=== PATIENT | female | born 1965 | race Caucasian/White ===

== ENCOUNTER 2022-05-16 08:11 | Emergency (ER) | payer OTHER, SELFPAY ==
--- NOTE | ~2022-05-16 | XR_ITS ---
EXAMINATION: XR chest 2V DATE: 05/16/2022 08:52 INDICATION: Shortness of breath. Cough. TECHNIQUE: Frontal and lateral views of the chest were obtained. COMPARISON: Chest single view 07/18/2021 FINDINGS: The lungs are hyperexpanded. There is no pneumonia, pleural effusion, or pneumothorax. The heart size is normal. There are surgical clips in right abdomen. IMPRESSION: 1. Hyperexpanded lungs. If the patient is a smoker, these findings are consistent with chronic obstru ctive pulmonary disease. Reviewed, dictated and finalized at location A. RTISING PHOTOGRAPHER IMPRESSION: 1. Hyperexpanded lungs. If the patient is a smoker, these findings are consiste nt with chronic obstructive pulmonary disease.
--- NOTE | 2022-05-16 08:18 | ED.URI ---
HPI - URI/Sore Throat General Chief Complaint: Upper Respiratory Infection Stated Complaint: SOB/COUGH Time Seen by Provider: 05/16/22 08:19 Source: patient and RN notes reviewed History of Present Illness HPI Narrative: Patient is a 56-year-old female who presents to urgent care with complaints of shortness of breath and cough. Patient states she has had a cough for approximately 1 week and woke up yesterday with increasing shortness of breath. Patient states that she had to call off work and today the shortness of breath is much worse. Denies wheezing. Denies any history of lung condition. Denies of any chest pain or tightness but states that she does have some rib discomfort due to the coughing. Patient has had intermittent low-grade fevers over the last couple days. Patient is not taking anything at home for her symptoms. No other acute complaints. No acute distress noted. Patient aware of the plan of care. Some parts of this dictation were generated by voice recognition software and may contain typographical and/or grammatical inaccuracies. Related Data Home Medications Medication Instructions Recorded Confirmed metoprolol succinate 50 mg 50 mg PO DAILY 05/16/22 05/16/22 tablet,extended release 24 hr Allergies Allergy/AdvReac Type Severity Reaction Status Date / Time sumatriptan [From Imitrex] Allergy Other Verified 05/16/22 08:39 Review of Systems Review of Systems: CONSTITUTIONAL: Reports of low-grade fevers EYES: Denies visual changes, redness, or discharge. ENT: Denies rhinorrhea, congestion, sore throat, or otalgia. CARDIOVASCULAR: Denies chest pain, palpitations, or edema. RESPIRATORY: Reports of cough with some GASTROINTESTINAL: Denies abdominal pain, nausea, vomiting, or diarrhea. GENITOURINARY: Denies dysuria or hematuria. SKIN: Denies rash or itching. MUSCULOSKELETAL: Denies back pain, joint pain, or myalgia. NEUROLOGIC: Denies headache, numbness, or weakness. All other systems reviewed are negative, except as documented in HPI. PMFSH Comments At the time of my signature, I reviewed and agree with the nursing past medical, surgical, social, and family history. There is no relevant family history pertinent to the patient complaint. Exam Narrative: GENERAL: This is a well-nourished, well-developed patient, in no apparent distress. HEAD: normocephalic, atraumatic. EYES: PERRL. Sclera clear/white. Vision is grossly intact. EARS: External ears normal, auditory canals clear and without drainage, TMs normal without perforation. Hearing grossly intact. NOSE: External nose normal with no obvious nasal discharge, nares without redness, no rhinorrhea. THROAT: Mucous membranes moist, posterior pharynx clear. NECK: Neck supple CARDIOVASCULAR: Regular rate and rhythm RESPIRATORY: Diminished throughout, obvious dyspnea SKIN: warm, intact with no suspicious lesions or rash, good texture and turgor. NEURO: awake, alert, and oriented to person, place and time. There were no obvious focal neurologic abnormalities. EXTREMITIES: No clubbing, cyanosis, or edema. Course Course Level of Care: Express Care Visit Vital Signs Vital signs: Vital Signs Temperature 97.5 F L 05/16/22 08:22 Pulse Rate 86 05/16/22 08:22 Respiratory Rate 18 05/16/22 08:22 Blood Pressure 134/62 05/16/22 08:22 Pulse Oximetry 97 05/16/22 08:22 Oxygen Delivery Room Air 05/16/22 08:22 Temperature 97.5 F L 05/16/22 08:22 Pulse Rate 86 05/16/22 08:22 Respiratory Rate 18 05/16/22 08:22 Blood Pressure 134/62 05/16/22 08:22 Pulse Oximetry 97 05/16/22 08:22 Oxygen Delivery Room Air 05/16/22 08:22 Reviewed Transfer Transfered to: [place] Transportation: Other (private car) Transfer rationale: Dyspnea, abnormal chest x-ray Accepting physician: rebeca you MDM - URI/Sore Throat Differential Diagnosis Differential diagnosis: Likely upper respiratory infection, croup, otitis media, sinusitis,
[2022-05-16 08:22] VITALS: BP 134/62; PULSE 86; RESP 18; TEMP 36.4; O2SAT 97
[2022-05-16] MEDS: ALBUTEROL SULFATE NEB 2.5 MG/3 ML INH INHALATION (09:01)
[2022-05-16] MEDS: IPRATROPIUM BR 0.02% INH SOLN 0.5 MG/2.5 ML VIAL INHALATION (09:02)
[2022-05-16 09:40] VITALS: PULSE 79; RESP 20; O2SAT 95
--- NOTE | 2022-05-16 09:44 | ECG_ITS ---
Measurements Intervals Carey Rate: 64 P: 72 VT: 159 QRS: 56 QRSD: 78 T: 55 QT: 432 QTc: 449 Interpretive Statements SINUS RHYTHM NO PREVIOUS ECG AVAILABLE FOR COMPARISON Electronically Signed On 05-16-2022 14:55:27 ROD PULLER by Timur Badillo M.D.
== END 2022-05-16 09:41 | disposition short-term general hospital (02) ==
PROVIDERS: Emergency Provider Nurse Practitioner Family; PCP Family Medicine
DX: R06.02 Shortness of breath (principal); I34.1 Nonrheumatic mitral (valve) prolapse
CPT/HCPCS: 71046; 93005; 94640; 99213; G0463

== ENCOUNTER 2022-05-16 10:09 | Emergency (ER) | payer OTHER, SELFPAY ==
[2022-05-16 10:50] VITALS: BP 105/90; PULSE 71; RESP 20; TEMP 36.6; O2SAT 99
[2022-05-16 12:28] LABS: Basophils Absolute Auto 0.1 K/mm3 (0.0-0.1); Basophils Percent Auto 0.6 % (0.2-1.2); Eosinophils Absolute Auto 0.2 K/mm3 (0-0.3); Eosinophils Percent Auto 2.3 % (0-4.4); Hematocrit 42.7 % (37.0-47.0); Hemoglobin 14.5 g/dL (12.0-15.0); Immature Granulocyte Absolute 0.04 K/mm3 (0.00-0.031); Immature Granulocyte Percent A 0.4 % (0-0.5); Lymphocytes Absolute Auto 1.02 K/mm3 (0.9-3.2); Lymphocytes Percent Auto 11.3 % (18.3-44.2); Mean Corpuscular Hemoglobin 30.5 pg (26-34); Mean Corpuscular Volume 89.9 fl (80-100); Mean Platelet Volume 9.6 fl (7.4-10.4); Monocytes Absolute Auto 0.6 K/mm3 (0.1-0.6); Monocytes Percent Auto 6.2 % (2.6-8.5); Neutrophils Absolute Auto 7.2 K/mm3 (1.3-6.7); Neutrophils Percent Auto 79.2 % (45.5-73.1); Platelet Count Result 261 k/mm3 (150-375); Red Blood Count 4.75 M/mm3 (4.2-5.4); Red Cell Distribution Width 12.4 % (11.5-14.5); White Blood Count 9.1 K/mm3 (4.5-10.0)
[2022-05-16 12:40] LABS: Alanine Aminotransferase 21 U/L (6-35); Albumin Level 5.2 g/dL (3.5-5.1); Alkaline Phosphatase 68 U/L (38-126); Anion Gap 10 mmol/L (8-16); Aspartate Amino Transferase 23 U/L (14-36); Bilirubin,Total 0.6 mg/dL (0.2-1.3); Blood Urea Nitrogen 9 mg/dL (7-17); Calcium 9.5 mg/dL (8.4-10.2); Carbon Dioxide 28 mmol/L (22-30); Chloride 100 mmol/L (98-107); Estimated CRCL calculation 67 ml/min; Estimated Glomerular Filt Rate > 60; Glucose 90 mg/dL (65-110); Potassium 4.2 mmol/L (3.4-5.0); Sodium 138 mmol/L (137-145)
--- NOTE | 2022-05-16 13:50 | PC.NURSE ---
Patient decided to leave prior to being seen by a provider. She stated I'm not sick and I was just sent here for a CT scan that I haven't had yet . Patient was encouraged to stay for evaluation but declined. Encouraged to return with any worsening symptoms.
== END 2022-05-16 13:50 | disposition left against medical advice (07) ==
PROVIDERS: Emergency Provider Emergency Medicine; PCP Family Medicine
DX: R06.02 Shortness of breath (principal)
CPT/HCPCS: 36415; 80053; 85025; 99199

== ENCOUNTER 2022-11-25 12:37 | Outpatient (CLI) | payer OTHER, SELFPAY ==
--- NOTE | ~2022-11-25 | CT_ITS ---
EXAMINATION:CT diagnostic chest wo con DATE: 11/25/2022 12:58 INDICATION: Pulmonary nodule. TECHNIQUE: Computed tomography (CT) of the chest was performed without intravenous contrast. Automate d exposure control and iterative reconstruction technique were employed. The dose-length product (DLP ) was 58.28 mGy-cm. COMPARISON: Chest 2 views 05/16/2022 FINDINGS: There is mild emphysema. There is mild bronchiectasis in right lower lobe. There is a 5 mm nodule in right lower lobe. There is a 6 mm nodules in right lower lobe. Calcified left lung nodules are consistent with old granulomatous disease. No pleural effusion. The heart size is normal. No sabiha cardial effusion. Pneumobilia is noted. There are changes of cholecystectomy. There is mild thoracic spondylosis and severe cervical spondylosis.. IMPRESSION: 1. Pulmonary nodules measuring up to 6 mm, probably benign. Noncontrast low-dose chest CT is recommen ded in 6-12 months. 2. Mild emphysema. Reviewed, dictated and finalized at location E. IMPRESSION: 1. Pulmonary nodules measuring up to 6 mm, probably benign. Noncontrast low-dos e chest CT is recommended in 6-12 months. 2. Mild emphysema.
== END 2022-11-25 12:38 | disposition home or self-care (01) ==
PROVIDERS: PCP Family Medicine; Visit Provider Internal Medicine Pulmonary Disease
DX: R91.1 Solitary pulmonary nodule (principal); J43.9 Emphysema, unspecified; R91.8 Other nonspecific abnormal finding of lung field
CPT/HCPCS: 71250

== ENCOUNTER 2023-04-02 08:07 | Outpatient (CLI) | payer OTHER, SELFPAY ==
[2023-04-02 08:44] LABS: Basophils Absolute Auto 0.1 K/mm3 (0.0-0.1); Basophils Percent Auto 1.2 % (0.2-1.2); Eosinophils Absolute Auto 0.2 K/mm3 (0-0.3); Eosinophils Percent Auto 2.7 % (0-4.4); Hematocrit 40.5 % (37.0-47.0); Hemoglobin 13.1 g/dL (12.0-15.0); Immature Granulocyte Absolute 0.01 K/mm3 (0.00-0.031); Immature Granulocyte Percent A 0.2 % (0-0.5); Lymphocytes Absolute Auto 1.36 K/mm3 (0.9-3.2); Lymphocytes Percent Auto 24.2 % (18.3-44.2); Mean Corpuscular HGB Conc 32.3 g/dl (32-36); Mean Corpuscular Hemoglobin 29.6 pg (26-34); Mean Corpuscular Volume 91.6 fl (80-100); Mean Platelet Volume 9.9 fl (7.4-10.4); Monocytes Absolute Auto 0.5 K/mm3 (0.1-0.6); Monocytes Percent Auto 8.2 % (2.6-8.5); Neutrophils Absolute Auto 3.6 K/mm3 (1.3-6.7); Neutrophils Percent Auto 63.5 % (45.5-73.1); Platelet Count Result 253 k/mm3 (150-375); Red Blood Count 4.42 M/mm3 (4.2-5.4); Red Cell Distribution Width 12.3 % (11.5-14.5); White Blood Count 5.6 K/mm3 (4.5-10.0)
[2023-04-02 08:56] LABS: Alanine Aminotransferase 15 U/L (6-35); Albumin Level 4.1 g/dL (3.5-5.1); Alkaline Phosphatase 51 U/L (38-126); Anion Gap 8 mmol/L (8-16); Aspartate Amino Transferase 23 U/L (14-36); Bilirubin,Total 0.4 mg/dL (0.2-1.3); Blood Urea Nitrogen 12 mg/dL (7-17); Calcium 9.5 mg/dL (8.4-10.2); Carbon Dioxide 27 mmol/L (22-30); Chloride 101 mmol/L (98-107); Cholesterol 257 mg/dL (0-200); Estimated Glomerular Filt Rate > 60; Glucose 94 mg/dL (65-110); HDL Direct 67 mg/dL; Potassium 4.3 mmol/L (3.4-5.0); Sodium 136 mmol/L (137-145); Triglycerides 111 mg/dL (<150)
[2023-04-02 09:07] LABS: LDL Cholesterol Direct 132 mg/dL
== END 2023-04-02 08:08 | disposition home or self-care (01) ==
LOC: ANHLAB 08:08
PROVIDERS: PCP Family Medicine; Visit Provider Family Medicine
DX: Z00.01 Encounter for general adult medical examination with abnormal findings (principal); R79.89 Other specified abnormal findings of blood chemistry
CPT/HCPCS: 36415; 80053; 80061; 82607; 85025

== ENCOUNTER 2023-05-28 11:04 | Outpatient (CLI) | payer OTHER, SELFPAY ==
--- NOTE | ~2023-05-28 | CT_ITS ---
EXAMINATION: CT diagnostic chest wo con DATE: 05/28/2023 11:33 INDICATION: LUNG NODULE >8MM TECHNIQUE: Computed tomography (CT) of the chest was performed without intravenous contrast. Addition al 3D reconstructions utilizing coronal maximum intensity projection (MIP) were performed. Automated exposure control and iterative reconstruction technique were employed. The dose-length product was 13 7.07 mGy-cm. COMPARISON: 11/25/2022 FINDINGS: Mild emphysema. Unchanged 6 mm nodule in the anterobasilar right lower lobe with interval resolution of near by 5 mm nodule. Tubular opacity likely representing a mucus impacted bronchus more caudally i n the anterobasilar right lower lobe which extends to a new spiculated pleural-based opacity measurin g 2.7 x 1.2 x 0.7 cm most likely representing a small region of atelectasis. Mild discoid atelectasis in the left lower lobe and lingula. There are calcified nodules in the superior segment of the left lower lobe consistent with old granulomatous disease. Heart size is normal. No pericardial or pleural effusion. Thoracic aorta is normal in caliber. No pathologically enlarged thoracic lymphadenopathy. Pneumobilia in the common bile duct and liver likely related to prior cholecystectomy and sphincterot facundo with cholecystectomy clips the gallbladder fossa. Mild thoracic and severe lower cervical and upp er lumbar spondylosis. IMPRESSION: 1. New 2.7 x 1.2 x 0.7 cm spiculated pleural-based opacity anterobasilar right lower lobe which given the configuration and relatively rapid appearance in 4 months would be most consistent with a small region of atelectasis peripheral to a mucus impacted bronchus. Recommend 3 month follow-up low-dose n oncontrast chest CT . 2. Mild emphysema with additional tiny calcified nodule in the 6 mm noncalcified nodule. Reviewed, dictated and finalized at location B. ER OUT IMPRESSION: 1. New 2.7 x 1.2 x 0.7 cm spiculated pleural-based opacity anterobasilar right lower lobe which given the configuration and relatively rapid appearance in 4 m onths would be most consistent with a small region of atelectasis peripheral to a mucus impacted bronchus. Recommend 3 month follow-up low-dose noncontrast est CT . 2. Mild emphysema with additional tiny calcified nodule in the 6 mm noncalcifie d nodule.
== END 2023-05-28 11:05 | disposition home or self-care (01) ==
LOC: ANHIMG 11:09
PROVIDERS: PCP Family Medicine; Visit Provider Internal Medicine Pulmonary Disease
DX: R91.1 Solitary pulmonary nodule (principal); J43.9 Emphysema, unspecified; R91.8 Other nonspecific abnormal finding of lung field
CPT/HCPCS: 71250

== ENCOUNTER 2023-06-17 08:19 | Outpatient (CLI) | payer OTHER, SELFPAY ==
--- NOTE | 2023-06-17 16:41 | WPDPFTINT ---
PFT Procedure Performed PFT Procedure Performed Plethysmography (Lung Vol) Diffusing Cap (DLCO) Flow Vol Loop Spirometry w/o Bronchodil PFT Interpretation This is a pulmonary function test with spirometry, plethysmography and diffusing capacity. The test was performed and results interpreted in accordance with the 2019 and 2005 ATS/ERS Task Force guidelines respectively using the Global Lung Function Initiative-2012 reference equations. Patient demonstrated good effort and cooperation. Reproducibility criteria were met. The quality of the spirometry maneuver was Grade A. Findings: Spirometry: There is decreased maximal expiratory airflow at all lung volumes with concave expiratory flow tracing. The contour the inspiratory flow tracing is normal. The FVC is 2.22 L, 72% predicted. The FEV1 is 1.12 L, 46% predicted. The FEV1: FVC ratio is 51%. Plethysmography: The total lung capacity is 5.68 L, 116% predicted. The functional residual capacity is 4.25 L, 154% predicted. The residual volume is 3.10 L, 162% predicted. The residual volume: Total lung capacity ratio is 55%. Plethysmography: Diffusing capacity: The diffusing capacity unadjusted for hemoglobin and carboxyhemoglobin is 12.5, 58% predicted. Diffusing capacity adjusted for alveolar volume is 3.50, 78% predicted. Impression: There is a severe obstructive abnormality. The increase in residual volume to total lung volume ratio is consistent with hyperinflation from an obstructive abnormality. The diffusing capacity unadjusted for hemoglobin and carboxyhemoglobin is moderately decreased and normalizes when adjusted for alveolar volume. There are no prior studies for comparison
== END 2023-06-17 08:20 | disposition home or self-care (01) ==
LOC: ANHPFT 08:20
PROVIDERS: PCP Family Medicine; Visit Provider Internal Medicine Pulmonary Disease
DX: J43.2 Centrilobular emphysema (principal)
CPT/HCPCS: 94375; 94726; 94729

== ENCOUNTER 2023-06-26 07:42 | Outpatient (CLI) | payer OTHER, SELFPAY ==
--- NOTE | ~2023-06-26 | PE_ITS ---
EXAMINATION: PET skull to mid thigh DATE: 06/26/2023 11:08 INDICATION: Lung nodule. TECHNIQUE: Blood glucose level was 103 mg/dL. 8.154 mCi of 18-fluorodeoxyglucose (18-FDG) was adminis tered i.v. Low dose computed tomography (CT) images were acquired from the base of the brain to the p roximal thighs for attenuation correction and anatomic localization. Automated exposure control was e mployed. Dose-length product (DLP) was 481 mGy-cm. Positron emission tomography (PET) images were acq uired in the same distribution. COMPARISON: Chest CT 05/20/2023, 11/25/2022 FINDINGS: Head/neck: There are no pathologically enlarged lymph nodes. Chest: There is mild emphysema. There is a peripheral 1.8 cm nodule in right lung lower lobe with max imum SUV of 11.1. There is a bronchocele in right lower lobe. There is a 4 mm nodule without increase d activity in right lower lobe. No pleural effusion. The heart size is normal. No pericardial effusio n. Abdomen/pelvis/proximal thighs: The liver demonstrates pneumobilia, likely secondary to sphincterotom y. There are changes of cholecystectomy. The pancreas, spleen, adrenal glands, and kidneys are normal . There are no dilated loops of bowel. There are no pathologically enlarged lymph nodes. There is no free intraperitoneal fluid. There is no osseous malignancy. IMPRESSION: 1. 1.8 cm nodule in right lung lower lobe with increased activity, consistent with primary bronchogen ic carcinoma versus pneumonia. CT-guided biopsy is recommended. Reviewed, dictated and finalized at location A. IMPRESSION: 1. 1.8 cm nodule in right lung lower lobe with increased activity, consistent w ith primary bronchogenic carcinoma versus pneumonia. CT-guided biopsy is recomm ended.
[2023-06-26 08:17] LABS: Glucose Point of Care 103 mg/dl (65-105)
== END 2023-06-26 07:43 | disposition home or self-care (01) ==
PROVIDERS: PCP Family Medicine; Visit Provider Internal Medicine Pulmonary Disease
DX: R91.1 Solitary pulmonary nodule (principal)
CPT/HCPCS: 78815; A9552

== ENCOUNTER 2023-09-17 11:09 | Outpatient (CLI) | payer OTHER, SELFPAY ==
--- NOTE | ~2023-09-17 | CT_ITS ---
EXAMINATION:CT diagnostic chest wo con DATE: 09/17/2023 11:24 INDICATION: Right lung nodule. TECHNIQUE: Computed tomography (CT) of the chest was performed without intravenous contrast. Automate d exposure control and iterative reconstruction technique were employed. The dose-length product (DLP ) was 128.87 mGy-cm. COMPARISON: Chest CT 05/28/2023, 11/25/22, PET/CT 06/06/23 FINDINGS: There is mild emphysema. There is mild atelectasis bilaterally. There is a bronchocele in r ight lower lobe. There is a 10 mm nodule in right lower lobe, improved from 18 mm on 06/26/2023. There is a 5 mm nodule in right lower lobe, stable from 11/25/22. There is a 3 mm nodule in right lower lob e. A calcified left lung nodule is consistent with old granulomatous disease. No pleural effusion. Th e heart size is normal. No pericardial effusion. Pneumobilia is noted, likely secondary to sphinctero flex. There are changes of cholecystectomy. There is mild thoracic spondylosis. IMPRESSION: 1. 10 mm right lower lobe pulmonary nodule with improvement from 06/06/2023, probably benign. Noncontra st low-dose chest CT is recommended in 6 months. 2. Mild emphysema. Reviewed, dictated and finalized at location A. IMPRESSION: 1. 10 mm right lower lobe pulmonary nodule with improvement from 06/06/2023, prob ably benign. Noncontrast low-dose chest CT is recommended in 6 months. 2. Mild emphysema.
== END 2023-09-17 11:10 | disposition home or self-care (01) ==
LOC: ANHIMG 11:12
PROVIDERS: PCP Family Medicine; Visit Provider Internal Medicine Pulmonary Disease
DX: R91.1 Solitary pulmonary nodule (principal); J43.9 Emphysema, unspecified
CPT/HCPCS: 71250

== ENCOUNTER 2024-02-17 11:42 | Outpatient (CLI) | payer OTHER, SELFPAY ==
--- NOTE | ~2024-02-17 | CT_ITS ---
EXAMINATION:CT diagnostic chest wo con DATE: 02/17/2024 12:00 INDICATION: Right lung nodule. TECHNIQUE: Computed tomography (CT) of the chest was performed without intravenous contrast. Automate d exposure control and iterative reconstruction technique were employed. The dose-length product (DLP ) was 35.17 mGy-cm. COMPARISON: Chest CT 09/17/2023, 05/28/2023 FINDINGS: There is mild emphysema. There are 5 nodules in right lung lower lobe measuring up to 10 mm . A calcified left lung nodule and calcified mediastinal lymph nodes are consistent with old granulom atous disease. No pleural effusion. The heart size is normal. No pericardial effusion. Pneumobilia is noted. There is mild thoracic spondylosis. IMPRESSION: 1. Right lower lobe pulmonary nodules, some of which are stable and some of which are new, probably i nfection. Noncontrast low-dose chest CT is recommended in 3 months. 2. Mild emphysema. Reviewed, dictated and finalized at location A. WARE MAKER IMPRESSION: 1. Right lower lobe pulmonary nodules, some of which are stable and some of whi ch are new, probably infection. Noncontrast low-dose chest CT is recommended in 3 months. 2. Mild emphysema.
== END 2024-02-17 11:43 | disposition home or self-care (01) ==
LOC: MICIMG 11:42
PROVIDERS: PCP Family Medicine; Visit Provider Internal Medicine Pulmonary Disease
DX: R91.1 Solitary pulmonary nodule (principal); J43.9 Emphysema, unspecified
CPT/HCPCS: 71250

== ENCOUNTER 2024-03-26 08:25 | Outpatient (CLI) | payer OTHER, SELFPAY ==
--- NOTE | ~2024-03-26 | XR_ITS ---
XR hand RT min 3V Ordering provider: Bouchra Vickers, History: . BILATERAL ARTHRITIS OF HANDS . Comparison: None. FINDINGS: BONES: No acute fracture or dislocation. JOINT SPACES: Slight narrowing of the distal interphalangeal joints. SOFT TISSUES: Normal. IMPRESSION: No acute osseous abnormality right hand. Slight narrowing of the distal interphalangeal joints which may indicate early osteoarthritic changes . Follow-up and clinical correlation advised. Reviewed, dictated and finalized at location A. EOTYPER IMPRESSION: No acute osseous abnormality right hand. Slight narrowing of the distal interphalangeal joints which may indicate early osteoarthritic changes. Follow-up and clinical correlation advised.
--- NOTE | ~2024-03-26 | XR_ITS ---
XR hand LT min 3V Ordering provider: Bouchra Vickers, History: . BILATERAL ARTHIRITIS OF HANDS . Comparison: None. FINDINGS: BONES: No acute fracture or dislocation. JOINT SPACES: Slight narrowing of the distal interphalangeal joints. Subarticular cystic area seen in the distal subarticular area of the proximal phalanx of the second finger. SOFT TISSUES: Soft tissue density opposite the distal radius. Clinical correlation advised. IMPRESSION: No acute osseous abnormality left hand. Narrowing of the distal interphalangeal joints which may indicate early osteoarthritic changes. Clini kate correlation and follow-up advised. Reviewed, dictated and finalized at location A. UCTION SKI REPAIRER IMPRESSION: No acute osseous abnormality left hand. Narrowing of the distal interphalangeal joints which may indicate early osteoar thritic changes. Clinical correlation and follow-up advised.
[2024-03-26 09:01] LABS: Rheumatoid Factor < 12.0 IU/ML (<12)
[2024-03-26 09:03] LABS: Alanine Aminotransferase 14 U/L (6-35); Albumin Level 4.5 g/dL (3.5-5.1); Alkaline Phosphatase 52 U/L (38-126); Anion Gap 3 mmol/L (4-12); Aspartate Amino Transferase 21 U/L (14-36); Bilirubin,Total 0.5 mg/dL (0.2-1.3); Blood Urea Nitrogen 9 mg/dL (7-17); CRP < 0.5 mg/dL (<1.0); Calcium 9.4 mg/dL (8.4-10.2); Carbon Dioxide 29 mmol/L (22-30); Chloride 106 mmol/L (98-107); Cholesterol 227 mg/dL (0-200); Estimated Glomerular Filt Rate > 60; Glucose 99 mg/dL (65-110); HDL Direct 67 mg/dL; Hemoglobin 13.1 g/dL (12.0-15.0); Mean Corpuscular HGB Conc 32.8 g/dl (32-36); Mean Corpuscular Hemoglobin 29.5 pg (26-34); Mean Corpuscular Volume 90.1 fl (80-100); Platelet Count Result 212 k/mm3 (150-375); Potassium 3.9 mmol/L (3.4-5.0); Red Blood Count 4.44 M/mm3 (4.2-5.4); Red Cell Distribution Width 12.4 % (11.5-14.5); Sodium 138 mmol/L (137-145); Triglycerides 89 mg/dL (<150); White Blood Count 6.3 K/mm3 (4.5-10.0)
[2024-03-26 09:11] LABS: LDL Cholesterol Direct 118 mg/dL
[2024-03-26 09:54] LABS: Band Neutrophils Percent 0 % (0-6); Basophils Percent Manual 0 % (0-1); Eosinophils Absolute Manual 0.12 K/mm3 (0.02-0.50); Eosinophils Percent Manual 2 % (0-4); Lymphocytes Absolute Manual 1.63 K/mm3 (1.1-4.5); Lymphocytes Percent Manual 26 % (18-44); Monocytes Absolute Manual 0.12 K/mm3 (0.1-0.90); Monocytes Percent Manual 2 % (3-9); Neutrophils Absolute Manual 4.41 K/mm3 (1.7-7.2); Neutrophils Percent Manual 70 % (46-73); Total Cells Counted 100
[2024-03-26 09:55] LABS: Hypochromasia 1+; Platelet Estimate Adequate (Adequate); Schistocytes None Seen
[2024-03-29 13:09] LABS: Cyclic Citrullinated Peptide <16 UNITS
[2024-03-30 12:28] LABS: Anti Nuclear Antibody Pattern Nuclear, Homogeneous; Anti Nuclear Antibody Titer 1:40 titer
--- OUTSIDE RECORDS SUMMARY | 2024-04-02 18:37 | XMS_ITS | Encounter Summary ---
Author Organization [facility] Address [facility] [facility] [place] [address] [place] [address] Care Team Providers Care Inflated Pad Buffer Name Role Phone Unavailable Primary Care Provider Unavailabl e Encounter Details Date Type Department Care Team (Late st Contact Info) Description 10/21/2008 Abstract [facility] [place] [address] Bouchra Vickers MD [address] [facility] [address] [place] [address] Social History Tobacco Use Types Packs/Day Years Used Date Smoking Tobacco: Never Assessed Comments Unknown Sex and Gender Information Value Date Recorded Sex Assigned at Not on file Legal Sex Female 4:09 PM CDT Gender Identity Not on file Sexual Orientation Not on file documented as of this encounter Plan of Treatment Not on file documented as of this encounter Visit Diagnoses Not on filedocumented in this encounter
--- OUTSIDE RECORDS SUMMARY | 2024-04-02 18:37 | XMS_ITS | Continuity of Care Document ---
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 Plan of Treatment Reminders Order Date Submit Date Provider Last Modified By Organization Details Last Modified Time Details Appointments MEDICARE WELLNESS VISIT 2024 10:30A Venus Vickers MD Not available Not available Not available Lab CMP, serum or plasma 2023 [facility] (Lab), [address] [place] [address], [id number], 03/26/2024 12:16:56 C reactive protein, QN, serum or plasma 2023 024 [facility] (Lab), [address] [place] [address], [id number], 03/22/2024 09:55:19 MARTIN (antinucl ear antibodie s) screen, ifa, serum 2023 024 [facility] (Lab), [address] [place] [address], [id number], 03/30/2024 15:39:54 rf (rheumato id factor) + anti-ccp abs, serum 2023 024 [facility] (Lab), [address] [place] [address], [id number], 03/26/2024 13:52:00 lipid panel, serum 2023 024 [facility] (Lab), [address] [place] [address], [id number], 03/26/2024 12:16:56 vitamin B12, serum 2023 024 [facility] (Lab), [address] [place] [address], [id number], 03/26/2024 12:16:56 CBC w/ auto diff 2023 024 [facility] (Lab), [address] [place] [address], [id number], 03/26/2024 12:16:56 Referral None recorded. Procedures None recorded. Surgeries None recorded. Imaging XR, hand 2023 024 [facility] (Imaging), [address] [place] [address], [id number], 03/26/2024 17:21:43 Medication Orders None recorded. Patient TargetsNo targets recorded. Patient InstructionsNo instructions recorded. Reason for Referral None Reported. Results Created Date Observation Date Name Description Value Unit Range Abnormal Flag Note LastModifiedBy Organization Detail LastModifiedTime 03/26/20 24 03/26/2024 XR, hand No observ ation record ed. [address], [address], 03/30/2024 20:28:09 Result Notes None recorded. Problems Name Problem SNOMED Code Status Onset Date Resolution Date Notes Provider Name and Address Organization Details Recorded Time Non-rheu matic mitral valve disease 244723333 Active 2021 Not Available [facility] 4 02:00:33 Degenera tion of lumbar interver tebral disc 95317570 Active 2021 Not Available [facility] 4 02:00:33 Mild neurocog nitive disorder 636973116 Active 2021 Not Available [facility] 4 02:00:33 Cataract of right eye 520810958 Active 2021 Not Available [facility] 4 02:00:33 Family history of diabetes mellitus in first degree relative 215959012 Active 2021 Not Available [facility] 4 02:00:33 Cobalami n deficien cy 683176307 Active 2021 Not Available [facility] 4 02:00:33 Chronic obstruct marin pulmonar y disease 36199528 Active 2022 Not Available [facility] 4 02:00:33 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 752889484 Active 2022 Not Available [facility] 4 02:00:33 Difficul ty coping with grief response s 435749287 Active 2022 Not Available [facility] 4 02:00:33 Cervical spondylo sis without myelopat hy 942730360 Active 2022 Not Available [facility] 4 02:00:33 Multiple nodules of lung 305495621 Active 2023 abnormal -- with a new lesion 2.7 cm x 1,2 cm x 0.7 cm-- recheck in 3 months- most consiste nt with area of atelecta sis Bouchra Vickers MD Attn: Accounting ,[address] [facility], [place], [address] , [place] [facility] 4 08:11:26 Pulmonar y sarcoido sis 77458720 Active 2023 Bouchra Vickers MD Attn: Accounting ,[address] [facility], [place], [address] , [place] [facility] 4 12:20:09 Chronic cough 32432935 Active 2022 Bouchra Vickers MD Attn: Accounting ,[address] [facility], [place], [address] , [place] [facility] 4 12:49:14 Spasm of sphincte r cullen Dardeni 01653994 Completed 201112/01/2011 Location : None;Sev erity: Moderate ;Progres s: Stable;A dded By: Bouchra Vickers;Add to Current Problems : NO Not Available [facility] 7 08:54:[address] [facility] emia [id number] Completed 201205/31/2012 Location : None;Sev erity: Moderate ;Progres s: Stable;A dded By: Bouchra Vickers;Add to Current Problems : NO Not Available [facility] 7 08:54:31 Hand joint pain 634142979 Completed 201406/28/2019 Location : None;Sev erity: Moderate ;Progres s: Stable;A dded By: Bouchra Vickers;Add to Current Problems : YES Removal Reason: recovere d Bouchra Vickers MD Attn: Accounting ,[address] [place], [address] , [facility] 0 10:12:14 Slow transit constipa tion 47154558 Active 2014 Location : None;Sev erity: Moderate ;Progres s: Stable;A dded By: Bouchra Vickers;Add to Current Problems : YES Not Available [facility] 4 02:00:33 Dyssomni a 33831614 Completed 201401/07/2015 Location : None;Sev erity: Moderate ;Progres s: Stable;A dded By: Bouchra Vickers;Add to Current Problems : YES Not Available [facility] 7 08:54:31 Multiple joint pain 14363093 Active 2015 Location : None;Sev erity: Moderate ;Progres s: Stable;A dded By: Bouchra Vickers;Add to Current Problems : YES Not Available [facility] 4 02:00:33 Premenst rual tension syndrome 25345555 Completed 201106/28/2019 Location : None;Sev erity: Moderate ;Progres s: Stable;A dded By: Bouchra Vickers;Add to Current Problems : YES Bouchra Vickers MD Attn: Accounting ,[address] [place], [address] , [facility] 0 10:11:54 Transharish t insomnia 949738260 Completed 201311/18/2013 Location : None;Sev erity: Moderate ;Progres s: Stable;A dded By: Ofe Lynn;Add to Current Problems : NO Not Available [facility] 7 08:54:32 Hemangio ma of skin and subcutan eous tissue 997331775 Active 2013 Location : None;Sev erity: Moderate ;Progres s: Stable;A dded By: Bettie Cobos;Add to Current Problems : NO Not Available [facility] 4 02:00:33 Irritabl e bowel syndrome 56357543 Active 2011 Location : None;Sev erity: Moderate ;Progres s: Stable;A dded By: Kathy Rust; Add to Current Problems : NO Bouchra Vickers MD Attn: Accounting ,[address] [place], [address] , [facility] 4 12:49:47 Migraine without aura 17749365 Active 2011 Location : None;Sev erity: Moderate ;Progres s: Stable;A dded By: Kathy Rust; Add to Current Problems : NO Not Available [facility] 4 02:00:33 Acquired hypothyr oidism 212699438 Active 2015 Location : None;Sev erity: Moderate ;Progres s: Stable;A dded By: Kathy Rust; Add to Current Problems : YES Not Available [facility] 4 02:00:33 Notes:Some problems listed i n Documents: #[id number], #[id number], #[id number] could not be added to this patient's chart. Please review these documents and add these problems to the patient's chart manually as needed. Problem Notes None recorded. Procedures Surgical History Date Name Laterality Status Provider Name and Address Organization Details Recorded Time 07/10/19 24 biopsy of lung completed Bouchra Vickers MD Attn: Accounting, [address] [place], [address] 07/22/2023 08:11:42 12/27/19 23 cataract surgery completed Bouchra Vickers MD Attn: Accounting, [address] [facility], [place], [address], [place] [facility] 03/18/2023 11:18:43 06/23/19 22 Date of Last Mammogram completed Kenia Carter MA [place] - [facility] 03/19/2024 11:39:12 12/30/19 07 Cholecystectomy completed Bouchra Vickers MD Attn: Accounting, [address] [facility], [place], [address], [place] [facility] 03/19/2024 12:35:14 08/30/19 05 Total hysterectomy completed Bouchra Vickers MD Attn: Accounting, [address] [place], [address], [facility] - [facility] 03/19/2024 12:35:56 04/01/18 95 Tubal Ligation completed Bouchra Vickers MD Attn: Accounting, [address] [place], [address], [facility] - [facility] 03/19/2024 12:36:16 03/31/18 90 Dilation and Curettage completed Bouchra Vickers MD Attn: Accounting, [address] [place], [address], [facility] - [facility] 03/19/2024 12:32:10 Gastrointestinal Surgery completed Bouchra Vickers MD Attn: Accounting, [address] [place], [address], [facility] - [facility] 11/28/2020 10:40:19 Imaging Results None recorded. Procedure Notes None recorded. Medical Equipment None Reported. Allergies Allergen ID Allergen Name Allergen Category Reaction Reaction Severity Criticality Documentation Date Start Date Code Code System Note Provider Name and Address Organization Details Recorded Time 979275 sumatript an medicatio n anaphylax is Not available Not available 03/19/2024 91354 RxNorm Bouchra Vickers MD Attn: Accountfemi moy,[address] [place], [address], [place] [facility] 12:47:49 393002 zolmitrip araujo medicatio n anaphylax is Not available Not available 03/19/20242021 84762 5 RxNorm Bouchra Vickers MD Attn: Elias moy,[address] [facility], [place], [address], [facility] 4 12:47:49 770623 Medicinal product acting as adhesive (product) environme nt,medica tion rash Not available Not available 03/19/20242021 63195 2009 SNOMED Bouchra Vickers MD Attn: Elias moy,[address] [facility], [place], [address], [facility] - [facility] 4 12:47:49 70201 Zomig medicatio n Not available Not available Not available 04/03/20162012 45587 4 RxNorm React ion: Myalg ia, swell ing, Throa t disco mfort ;Alee rity: Moder ate; Comme nt: Aller gy Type: Aller gy; Not Available [facility] 7 03:49:13 Medications Name Sig Start Date Stop Date Status Note LastModified by Organization Details LastModified Time fluoxetine 40 mg capsule TAKE ONE CAPSULE BY MOUTH EVERY DAY 05/17 completed Not Available Not Available Not Available Miralax 17 gram/dose oral powder Dissolve 1 capful(s) in 8 ounces of water and drink daily 01/06 completed RxNor m: 68764 5;All ow Subst ituti on: True Not Available Not Available Not Available prednisone 10 mg tablet 01/06 completed Not Available Not Available Not Available ofloxacin 0.3 % eye drops 03/15 completed Not Available Not Available Not Available metoprolol succinate ER 50 mg tablet,exte nded release 24 hr TAKE 1 TABLET BY MOUTH EVERY DAY active Not Available Not Available No t Available prednisone 20 mg tablet TAKE 1 TABLET BY MOUTH DAILY FOR 2 DOSES 03/19 completed Not Available Not Available Not Available prednisone 5 mg tablet TAKE 1 TABLET BY MOUTH EVERY MORNING active Not Available Not Available No t Available estradiol 0.05 mg/[address] ONE PATCH ON THE SKIN TWICE A WEEK DIRECTED 05/28 completed Not Available Not Available Not Available ketorolac 0.5 % eye drops 03/15 completed Not Available Not Available Not Available prednisolon e acetate 1 % eye drops,suspe nsion 03/15 completed Not Available Not Available Not Available Midrin 65 mg-100 mg-325 mg capsule Take 1 capsule(s ) by mouth q4h up to 8 capsules per day. 04/30 completed RxNor m: 31111 7;All ow Subst ituti on: True Not Available Not Available Not Available baclofen 10 mg tablet TAKE ONE TABLET BY MOUTH THREE TIMES A DAY BEFORE MEALS 05/28 completed Not Available Not Available Not Available levothyroxi ne 50 mcg tablet TAKE ONE TABLET BY MOUTH EVERY DAY 06/27 completed Not Available Not Available Not Available pantoprazol e 40 mg tablet,kenny yed release 01/06 completed Not Available Not Available Not Available cyanocobala min (vit B-12) 1,000 mcg/mL injection solution ADMINISTE R 1 ML UNDER THE SKIN EVERY MONTH active Not Available Not Available No t Available misoprostol 200 mcg tablet 3 times daily 11/09 completed Not Available Not Available Not Available metoprolol tartrate 50 mg tablet Take 1 tablet(s) by mouth daily 04/30 completed RxNor m: 21568 6;All ow Subst ituti on: True Not Available Not Available Not Available Imdur 60 mg tablet,exte nded release Take 1 tablet(s) by mouth qa 11/08 completed RxNor m: 64628 8;All ow Subst ituti on: True Not Available Not Available Not Available BD Luer-Lucy Syringe 3 mL 25 gauge x 1 USE DIRECTED active Not Available Not Available No t Available nitroglycer in 0.4 mg sublingual tablet DISSOLVE 1 TABLET UNDER THE TONGUE (MAY REPEAT EVERY 5 MINUTES FOR ABDOMEN SPASMS, MAXIMUM OF THREE DOSES IN 15 MINUTES) active Not Available Not Available No t Available omeprazole 20 mg capsule,del ayed release active Not Available Not Available Not Available chlordiazep oxide-clidi nium 5 mg-2.5 mg capsule Take 1 capsule(s ) by mouth qid-- AC adn at 10/30 completed Not Available Not Available Not Available estradiol 0.5 mg tablet active Not Available Not Available Not Available albuterol sulfate HFA 90 mcg/actuati on aerosol inhaler INHALE 2 PUFFS BY MOUTH EVERY 4 HOURS NEEDED active Not Available Not Available No t Available cefdinir 300 mg capsule 05/28 completed Not Available Not Available Not Available estradiol 0.1 mg/24 hr weekly transdermal patch Apply 1 patch(es) to lower abdomen 2 times weekly 05/02 completed RxNor m: 12865 4;All ow Subst ituti on: True Not Available Not Available Not Available azithromyci n 500 mg tablet TAKE 1 TABLET BY MOUTH FOR ONE DOSE 05/28 completed Not Available Not Available Not Available 16.2 mg-0.1037 mg-0.0194 mg/5 mL oral elixir Take 5 mL as needed by oral route with meals. 05/02 completed Not Available Not Available Not Available Atrovent HFA 17 mcg/actuati on aerosol inhaler INHALE 2 PUFFS BY MOUTH FOUR TIMES DAILY 01/06 completed Not Available Not Available Not Available Symbicort 160 mcg-4.5 mcg/actuati on HFA aerosol inhaler INHALE 2 PUFFS BY MOUTH TWICE DAILY. RINSE MOUTH WITH WATER AFTER USE. DO NOT SWALLOW 01/06 completed Not Available Not Available Not Available estradiol 0.87 gram/actuat ion (0.06%) transdermal gel pump Apply 1 pump every day by topical route. 05/02 completed Not Available Not Available Not Available Amitiza 8 mcg capsule Take 1 cap po daily 10/18 completed RxNor m: 50704 1;All ow Subst ituti on: True Not Available Not Available Not Available fluoxetine 60 mg tablet TAKE 1 TABLET BY MOUTH EVERY DAY 03/19 completed Not Available Not Available Not Available Breztri Aerosphere 160 mcg-9mcg-4. 8mcg/actuat ion HFA aerosol inhaler INHALE 2 PUFFS BY MOUTH TWICE DAILY active Not Available Not Available No t Available Vitals Date Recorded Body weight Body mass index (BMI) Body height Oxygen saturation Oxygen saturation in Arterial blood by Pulse oximetry Heart rate Body temperature Systolic blood pressure Diastolic blood pressure Provider Name and Address Organization Details Last Updated DateTime 4 50694.8 3 g 18.2 kg/m2 158.75 cm 97 % 97 % 74 /min 97.1 [degF] 122 mm[Hg] 73 mm[Hg] Kenia Carter MA [place] [facility] 4 11:35:34 Social History Question Answer Notes LastModified by Organizat ion Details LastModified Time Tobacco Smoking Status Never Smoker Neelima Tijerinaandi kay [place] - [facility] 05/02/2016 11:13:48 Do You Have An Advance Directive? No Information not available 11/28/2020 What Is Your Level Of Alcohol Consumption? Occasional Information not available 11/28/2020 Are You Blind Or Do You Have Difficulty Seeing? No Has Cataract On Right Eye Information not available 11/28/2020 What Is Your Level Of Caffeine Consumption? Moderate Information not available 11/28/2020 In The 14 Days Before Symptom Onset, Have You Had Close Contact With A Laboratory-confi rmed COVID-19 While That Case Was Ill? No Information not available 11/28/2020 In The 14 Days Before Symptom Onset, Have You Had Close Contact With A Person Who Is Under Investigation For COVID-19 While That Person Was Ill? No Information not available 11/28/2020 Have You Been To An Area Known To Be High Risk For COVID-19? No Information not available 11/28/2020 Are You Currently Employed? Yes Information not available 11/28/2020 Are You Deaf Or Do You Have Serious Difficulty Hearing? No Information not available 11/28/2020 What Type Of Diet Are You Following? REGULAR Information not available 11/28/2020 What Was The Date Of Your Most Recent Tobacco Screening? 03/19/2024 [email or web address] Information not available 03/19/2024 What Is Your Relationship Status? Information not available 11/28/2020 Do You Use Your Seat Belt Or Car Seat Routinely? Yes Information not available 11/28/2020 Do You Have Smoke And Carbon Monoxide Detectors In Your Home? Yes Information not available 11/28/2020 Are You Passively Exposed To Smoke? No Information not available 11/28/2020 Do You Feel Stressed (tense, Restless, Nervous, Or Anxious, Or Unable To Sleep At Night)? AB53633-4 Information not available 11/28/2020 Do You Use Any Illicit Or Recreational Drugs? Yes Cannibus Gummies Edibles Information not available 11/09/2021 Do You Or Have You Ever Used Any Other Forms Of Tobacco Or Nicotine? No Information not available 11/09/2021 Sex: Female Functional Status Question Answer Note LastModified by Organizat ion Details LastModified Time Are you able to care for yourself? Yes Information not available 11/28/2020 What is your exercise level? Occasional Information not available 11/28/2020 Mental Status None recorded. Family History Relationship Description Onset Age of this Age Resolved Age Notes LastModified by Organization Details LastModified Time Mother Coronary arterioscler osis charrisma Not available 2016 11:13:56 Mother Diabetes mellitus charrisma Not available 2016 11:14:02 Mother Heart disease charrisma Not available 2016 11:14:09 Mother Hypertensive disorder charrisma Not available 2016 11:14:18 Mother Osteoarthrit is Not available 2023 12:31:23 Medical History Condition Response Coronary Artery Disease N High Blood Pressure N Atrial Fibrillation N Kidney or Bladder Problems N Thyroid Problems Y GI Problems Y Depression N COPD Y Blood Clots N Have you had a mammogram in the last yea r? N Skin Problems N Eating Disorder N Anemia N Heart Attack (OK) N Diabetes N Muscle, Joint, or Bone Problems Y Arthritis Y Seizures/Epilepsy N Have you had a colonoscopy in the last 1 0 years? N Acid Reflux (GERD) Y Cancer N Stroke N Asthma N Allergies N Have you had a PSA blood test in the las t year? N ADHD N Substance Abuse N High Cholesterol N Hepatitis N Liver Disease N Schizophrenia N Headaches Y Osteoporosis N Heart Failure N Gynecological History Statement/Question Response If Post Menopausal, Age at Menopause 39 Date of Last Mammogram 06/22/2021 Obstetrics History GPAL:G 2 P 2 0 0 2 Type Value Full Term 2 Living 2 Total 2 Immunizations Vaccine Type Date Status Note Provider Nam e and Address Organization Details Recorded Time COVID-19 vaccine, vector-nr, rS-Ad26, PF, 0.5 mL 1 completed Not Available [facility] 05/12/2023 02:00:34 Influenza, split virus, trivalent, preservative 9 completed Not Available [facility] 05/12/2023 02:00:34 Influenza, split virus, trivalent, PF 4 completed Bouchra Vickers MD Attn: Accounting[address] [place], [address], [place] [facility] 03/19/2024 12:47:12 Tdap 0 completed ANDI Leggett, [place] - [facility] 09/21/2019 14:44:46 Tdap 9 completed Not Available [facility] 05/12/2023 02:00:34 Pneumococcal conjugate PCV20, polysaccharide [id number] conjugate, adjuvant, PF 4 completed ANDI Bennett, [place] - [facility] 03/19/2024 13:04:40 Influenza, split virus, quadrivalent, preservative 7 completed Not Available [facility] 05/12/2023 02:00:33 Past Encounters Encounter ID Performer Location Encounter Start Date Encounter Closed Date Diagnosis/Indication Diagnosis SNOMED-CT Code Diagnosis ICD10 Code Diagnosis Note [id number] Bouchra Vickers MD [facility] [address] [place] [address] 03/19/2024 11:18:00 03/22/2024 09:55:24 Adult health examination 188129488 Z00.01 discussed DEXA and declined testing at this timeDiscus sed mammogram and she agrees and will schedule Bilateral arthritis of hands 7376316067 04535 M13.841 M13.842 will check XRAYs asn order screening -- no real help with PREDNISONE - likely not RA Hyperlipidemia 31658457 E78.5 last HDL was good and LDL was minimally elevated-- but will recheck next week Cobalamin deficiency 190 288903 E53.8 she reprots she does not feel any different since starting B 12 injecions- - will check CBC and B 12 Long-term drug therapy 828695728 Z79.891 routine labs next week Anxiety 05923070 F41.9 Take medicines exactly as directed. Call your doctor if you think you are having a problem with your medicine. Be kind to your body: Relieve tension with exercise or a massage. Get enough rest. Avoid alcohol, caffeine, nicotine, and illegal drugs. They can increase your anxiety level and cause sleep problems. Engage your mind. Get out and do something you enjoy. Go to a funny movie, or take a walk or hike. Plan your day. Having too much or too little to do can make you anxious. Keep a record of your symptoms. Discuss your fears with a good friend or family member, or join a support group for people with similar problems. Talking to others sometimes relieves stress. Get at least 30 minutes of exercise on most days of the week to relieve stress. Walking is a good choice. You also may want to do other activities , such as running, swimming, cycling, or playing tennis or team sports. Administra tion of pneumococcal vaccine 32204963 Z23 update pneumonia vaccine and letter to Dr Campuzano that vaccine was given Working [facility] the pain of grief 974021155 F43.21 offered counseling -- advised meditation and socializat ion-- 99 stress reduction activities . Patient declined mental health referral Health Concerns Section Related Observation LastModified by Organization Detai ls LastModified Time None Recorded Concern Status LastModified by Organization Details LastModified Time None Recorded Payers Encounter Date Sequence Insurance Name Policy Number Policy Garrison Covered Member ID Garrison Member ID Guarantor Name 03/19/2024 1 [employer] ([employer]) [id number] Obi Gama [id number] Obi Gama Notes Date Note Type Note Provider Name and Address Organization Details Recorded Time 03/19/2024 text/html since last OV-- Dx with SARCOID nad now on PREDNISONE 5 mg daily-- no worsening -- here for annual appointment Bouchra Vickers MD Attn: Accounting,[address] [facility], [place], [address], [place] [facility] 03/21/2024 09:23:21 OBGyn Episode No OBEpisode recorded.
--- OUTSIDE RECORDS SUMMARY | 2024-04-02 18:37 | XMS_ITS | Clinical Summary ---
Author Organization [facility] Address [address] [place] [address]. [place] [address] [place] [address] Care Team Providers Care [employer] Name Role Phone Unavailable Primary Care Provider Unavailabl e Social History Tobacco Use Types Packs/Day Years Used Date Smoking Tobacco: Never Assessed Comments Unknown Sex and Gender Information Value Date Recorded Sex Assigned at Not on file Legal Sex Female 4:09 PM CDT Gender Identity Not on file Sexual Orientation Not on file Plan of Treatment Health Maintenance Due Date Last Done Comments Cervical Cancer Screening Pa p Smear (Age 30 to 64) Every 3 Years 1963 Colorectal Cancer Screening Colonoscopy (10 Years) 1965 Annual Physical 07/02/1966 Hepatitis C 07/02/1981 DTaP, Tdap and Td Vaccines ( 1 - Tdap) 07/02/1982 Cervical Cancer Screening Pa p with HPV Testing (Age 30 to 64) Every 5 Years 07/02/1993 Cervical Cancer Screening with HPV 07/02/1993 Mammogram Screening 2003 Zoster Vaccines (1 of 2) 07/02/2013 COVID-19 Vaccine (2023-2 5 season) 2023 Influenza Adult (#1) 2023 RSV Immunization or 60+ Years (1 - 1-dose 75+ series) 07/02/2038 Meningococcal Vaccine Aged Out No mathieu cassidy eligible based on patient's age to complete this topic Pneumococcal Vaccine: Pediat rics (0 to 5 Years) and At-Risk Patients (6 to 64 Years) Aged Out No longer eligible b ased on patient's age to complete this topic RSV Immunizations Under 20 Months Aged Out No longer eligible based on patient's age to complete this topic
--- OUTSIDE RECORDS SUMMARY | 2024-04-02 18:37 | XMS_ITS | Data Portability ---
Author Organization [facility] Address [address] [place] [address] Care Team Providers [facility] Manager Name Role Phone BOUCHRA GOODEN Primary Care Provider MALACHI PEREIRA Guest Advisor [phone] NICOLETTE HENRY Call Center Dispatcher Assessment No assessment recorded. Plan of Treatment Reminders Order Date Submit Date Provider Last Modified By Organization Details Last Modified Time Details Appointments MEDICARE WELLNESS VISIT 2024 10:30A M Bouchra Gooden MD Not available Not available Not available Lab urinalysi s complete, reflex culture [address] Outpatient Registration Lab/Ekg, [address], [address], 05/28/2022 11:35:59 lipid panel, serum 2022 023 [facility] Registration Lab/Ekg, [address], [address], 04/02/2023 12:10:29 CMP, serum or plasma 2022 023 [facility]/Ekg, [address], [address], 04/02/2023 12:10:28 CBC w/ auto diff 2022 023 [facility]/Ekg, [address], [place], [address], 04/02/2023 12:10:29 vitamin B12, serum 2022 023 [facility]/Ekg, [address] [place] [address] [address], [place], [address], 04/02/2023 12:10:29 CMP, serum or plasma 2023 024 [facility] (Lab), [address] [place] [address] [address], [place], [address], 03/26/2024 12:16:56 C reactive protein, QN, serum or plasma 2023 024 [facility] (Lab), [address] [place] [address] [address], [place], [address], 03/22/2024 09:55:19 MARTIN (antinucl ear antibodie s) screen, ifa, serum 2023 024 [facility] (Lab), [address] [place] [address] [address], [place], [address], 03/30/2024 15:39:54 rf (rheumato id factor) + anti-ccp abs, serum 2023 024 [facility] (Lab), [address] [place] [address] [address], [address], 03/26/2024 13:52:00 lipid panel, serum 2023 024 [facility] (Lab), [address] [place] [address] [address], [place], [address], 03/26/2024 12:16:56 vitamin B12, serum 2023 024 [facility] (Lab), [address] [place] [address] [address], [address], 03/26/2024 12:16:56 CBC w/ auto diff 2023 024 [facility] (Lab), [address] [place] [address] [address], [address], 03/26/2024 12:16:56 Referral None recorded. Procedures None recorded. Surgeries None recorded. Imaging XR, hand 2023 024 [facility] (Imaging), [address], [place], [address], 03/26/2024 17:21:43 Medication Orders metoprolo l succinate ER 50 mg tablet,ex tended release 24 hr 2022 023 [id number], [address] [facility], [place], [place], [id number], 03/18/2023 11:36:15 Patient TargetsNo targets recorded. Patient Instructions Encounter Date Encounter Id Patient Instructions Last Modified By Organization Details Last Modified Time 05/28/2022 [id number] keep appt in Feb 2023 Not available 05/28/2022 13:51:08 01/06/2023 [id number] follow up in one month but advised to take off about 6 weeks from work to address grief issues Not available 01/06/2023 21:43:07 02/03/2023 [id number] keep appt for AWV-- follow up sooner as needed Not available 02/03/2023 19:40:49 03/18/2023 [id number] grief (actual/anticipat ed): care instructions Not available 03/19/2023 07:45:33 Reason for Referral None Reported. Results Created Date Observation Date Name Description Value Unit Range Abnormal Flag Note LastModifiedBy Organization Detail LastModifiedTime 06/26/1906/26/2023 gluco se, QN, venou s blood glucose 103 Not Available [facility] [address], [place], [address], 06/30/2023 16:13:50 05/16/19 23 05/16/2022 XR, chest , 2 view No observ ation record ed. jaime Gama [facility] [address] [facility]Note 2] , [place], [address], 05/31/2022 12:43:20 11/27/19 23 11/25/2022 LDCT, chest , for lung cance r scree shania No observ ation record ed. [address], [place], [address], 11/26/2022 17:54:57 05/28/19 24 05/28/2023 CT, chest , w/o contr ast No observ ation record ed. [address], [place], [address], 05/29/2023 08:11:37 06/26/19 24 06/17/2023 pulmo nary funct ion test proce dure (PROC ) No observ ation record ed. [facility] Not Available 2023 07:56:27 06/27/19 24 06/26/2023 PET-C T, skull base to mid-t high scan No observ ation record ed. [address], [place], [address], 06/27/2023 11:56:57 09/18/19 24 09/17/2023 CT, chest , w/o contr ast No observ ation record ed. [email or web address], [place], [address], 09/19/2023 14:11:49 03/26/20 24 03/26/2024 XR, hand No observ ation record ed. [address], [place], [address], 03/30/2024 20:28:09 Result Notes None recorded. Problems Name Problem SNOMED Code Status Onset Date Resolution Date Notes Provider Name and Address Organization Details Recorded Time Non-rheu matic mitral valve disease 012916100 Active 2021 Not Available [facility] 4 02:00:33 Degenera tion of lumbar interver tebral disc 20623024 Active 2021 Not Available [facility] 4 02:00:33 Mild neurocog nitive disorder 292373432 Active 2021 Not Available [facility] 4 02:00:33 Cataract of right eye 093583829 Active 2021 Not Available [facility] 4 02:00:33 Family history of diabetes mellitus in first degree relative 954143087 Active 2021 Not Available [facility] 4 02:00:33 Cobalami n deficien cy 579134882 Active 2021 Not Available [facility] 4 02:00:33 Chronic obstruct marin pulmonar y disease 70819523 Active 2022 Not Available [facility] 4 02:00:33 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 146833083 Active 2022 Not Available [facility] 4 02:00:33 Difficul ty coping with grief response s 696494309 Active 2022 Not Available [facility] 4 02:00:33 Cervical spondylo sis without myelopat hy 348757583 Active 2022 Not Available [facility] 4 02:00:33 Multiple nodules of lung 910948962 Active 2023 abnormal -- with a new lesion 2.7 cm x 1,2 cm x 0.7 cm-- recheck in 3 months- most consiste nt with area of atelecta sis Bouchra Gooden MD Attn: Accounting ,[address] [facility], [place], [address] , [place] [facility] 4 08:11:26 Pulmonar y sarcoido sis 84260950 Active 2023 Bouchar Gooden MD Attn: Accounting ,[address] [facility], [place], [address] , [place] 4 12:20:09 Chronic cough 13845583 Active 2022 Bouchra Gooden MD Attn: Accounting ,[address] [facility], [place], [address] , [place] 4 12:49:14 Spasm of sphincte r cullen Dardeni 71763901 Completed 201112/01/2011 Location : None;Sev erity: Moderate ;Progres s: Stable;A dded By: Bouchra Gooden;Add to Current Problems : NO Not Available [facility] 7 08:54:[address] [facility] emia [id number] Completed 201205/31/2012 Location : None;Sev erity: Moderate ;Progres s: Stable;A dded By: Bouchra Gooden;Add to Current Problems : NO Not Available [facility] 7 08:54:31 Hand joint pain 915325136 Completed 201406/28/2019 Location : None;Sev erity: Moderate ;Progres s: Stable;A dded By: Bouchra Gooden;Add to Current Problems : YES Removal Reason: recovere d Bouchra Gooden MD Attn: Accounting ,[address] [place], [address] , [facility] 0 10:12:14 Slow transit constipa tion 60531453 Active 2014 Location : None;Sev erity: Moderate ;Progres s: Stable;A dded By: Bouchra Gooden;Add to Current Problems : YES Not Available [facility] 4 02:00:33 Dyssomni a 21420668 Completed 201401/07/2015 Location : None;Sev erity: Moderate ;Progres s: Stable;A dded By: Bouchra Gooden;Add to Current Problems : YES Not Available [facility] 7 08:54:31 Multiple joint pain 93464957 Active 2015 Location : None;Sev erity: Moderate ;Progres s: Stable;A dded By: Bouchra Gooden;Add to Current Problems : YES Not Available [facility] 4 02:00:33 Premenst rual tension syndrome 92407830 Completed 201106/28/2019 Location : None;Sev erity: Moderate ;Progres s: Stable;A dded By: Bouchra Gooden;Add to Current Problems : YES Bouchra Gooden MD Attn: Accounting ,[address] [place], [address] , [facility] 0 10:11:54 Transharish t insomnia 404312735 Completed 201311/18/2013 Location : None;Sev erity: Moderate ;Progres s: Stable;A dded By: Ofe Lynn;Add to Current Problems : NO Not Available [facility] 7 08:54:32 Hemangio ma of skin and subcutan eous tissue 277430713 Active 2013 Location : None;Sev erity: Moderate ;Progres s: Stable;A dded By: Bettie Coobs;Add to Current Problems : NO Not Available [facility] 4 02:00:33 Irritabl e bowel syndrome 61305405 Active 2011 Location : None;Sev erity: Moderate ;Progres s: Stable;A dded By: Kathy Rust; Add to Current Problems : NO Bouchra Gooden MD Attn: Accounting ,[address] [place], [address] , [facility] 4 12:49:47 Migraine without aura 44418489 Active 2011 Location : None;Sev erity: Moderate ;Progres s: Stable;A dded By: Kathy Rust; Add to Current Problems : NO Not Available [facility] 4 02:00:33 Acquired hypothyr oidism 292038316 Active 2015 Location : None;Sev erity: Moderate ;Progres s: Stable;A dded By: Kathy Rust; Add to Current Problems : YES Not Available [facility] 4 02:00:33 Notes:Some problems listed i n Documents: #[id number], #[id number], #[id number] could not be added to this patient's chart. Please review these documents and add these problems to the patient's chart manually as needed. Problem Notes None recorded. Procedures Surgical History Date Name Laterality Status Provider Name and Address Organization Details Recorded Time 07/10/19 24 biopsy of lung completed Bouchra Gooden MD Attn: Accounting, [address] [place], [address] 07/22/2023 08:11:42 12/27/19 23 cataract surgery completed Bouchra Gooden MD Attn: Accounting, [address] [facility], [place], [address], [facility] 03/18/2023 11:18:43 06/23/19 22 Date of Last Mammogram completed Kenia Carter [place] 03/19/2024 11:39:12 12/30/19 07 Cholecystectomy completed Bouchra Gooden MD Attn: Accounting, [address] [facility], [place], [address], [facility] 03/19/2024 12:35:14 08/30/19 05 Total hysterectomy completed Bouchra Gooden MD Attn: Accounting, [address] [facility], [place], [address], [facility] 03/19/2024 12:35:56 04/01/18 95 Tubal Ligation completed Bouchra Gooden MD Attn: Accounting, [address] [facility], [place], [address], [facility] 03/19/2024 12:36:16 03/31/18 90 Dilation and Curettage completed Bouchra Gooden MD Attn: Accounting, [address] [facility], [place], [address], [facility] 03/19/2024 12:32:10 Gastrointestinal Surgery completed Bouchra Gooden MD Attn: Accounting, [address] [facility], [place], [address], [facility] 11/28/2020 10:40:19 Imaging Results Imaging Date Name Status LastModified by Organiz ation Details LastModified Time 05/16/2022 XR, chest, 2 view completed [place] [id number] [facility][Note 2] , [place], [address], 05/31/2022 12:43:20 11/25/2022 LDCT, chest, for lung cancer screening completed [place] [address], [place], [address], 11/26/2022 17:54:57 05/28/2023 CT, chest, w/o contrast completed [address] [facility], [place], [address], 05/29/2023 08:11:37 06/17/2023 pulmonary function test procedure (PROC) completed [facility] Information not available 06/27/2023 07:56:27 06/26/2023 PET-CT, skull base to mid-thigh scan completed [address] [facility], [place], [address], 06/27/2023 11:56:57 09/17/2023 CT, chest, w/o contrast completed [address] [place] [address], [address], 09/19/2023 14:11:49 03/26/2024 XR, hand completed [address] [place] [address], [address], 03/30/2024 20:28:09 Procedure Notes None recorded. Medical Equipment None Reported. Allergies Allergen ID Allergen Name Allergen Category Reaction Reaction Severity Criticality Documentation Date Start Date Code Code System Note Provider Name and Address Organization Details Recorded Time 249466 sumatript an medicatio n anaphylax is Not available Not available 03/19/2024 03373 RxNorm Bouchra Gooden MD Attn: Elias g,[address] [place], [address], [place] 12:47:49 288782 zolmitrip araujo medicatio n anaphylax is Not available Not available 03/19/20242021 25889 5 RxNorm Bouchra Gooden MD Attn: Accountin g,[address] [place], [address], [place] 12:47:49 972194 Medicinal product acting as adhesive (product) environme nt,medica tion rash Not available Not available 03/19/20242021 76258 2009 SNOMED Bouchra Gooden MD Attn: Accountin g,[address] [facility] [place], [address], [place] [facility] 4 12:47:49 04456 Zotxg medicatio n Not available Not available Not available 04/03/20162012 10606 4 RxNorm React ion: Myalg ia, swell ing, Throa t disco mfort ;Alee rity: Moder ate; Comme nt: Aller gy Type: Aller gy; Not Available [facility] 7 03:49:13 Medications Name Sig Start Date Stop Date Status Note LastModified by Organization Details LastModified Time fluoxetine 40 mg capsule TAKE ONE CAPSULE BY MOUTH EVERY DAY 05/17 completed Not Available Not Available Not Available Miralax 17 gram/dose oral powder Dissolve 1 capful(s) in 8 ounces of water and drink daily 01/06 completed RxNor m: 14054 5;All ow Subst ituti on: True Not [...] capsules per day. 04/30 completed RxNor m: 81410 7;All ow Subst ituti on: True Not [...] by mouth daily 04/30 completed RxNor m: 42591 6;All ow Subst ituti on: True Not Available Not Available Not Available Imdur 60 mg tablet,exte nded release Take 1 tablet(s) by mouth qam 11/08 completed RxNor m: 71026 8;All ow Subst ituti on: True Not [...] 2 times weekly 05/02 completed RxNor m: 87126 4;All ow Subst ituti on: True Not [...] cap po daily 10/18 completed RxNor m: 30436 1;All ow Subst ituti on: True Not Available Not Available Not Available fluoxetine 60 mg tablet TAKE 1 TABLET BY MOUTH EVERY DAY 03/19 completed Not Available Not Available Not Available Breztri Aerosphere 160 mcg-9mcg-4. 8mcg/actuat ion HFA aerosol inhaler INHALE 2 PUFFS BY MOUTH TWICE DAILY active Not Available Not Available No t Available Vitals Date Recorded Body height Body mass index (BMI) Body weight Body temperature Oxygen saturation Oxygen saturation in Arterial blood by Pulse oximetry Heart rate Systolic blood pressure Diastolic blood pressure Provider Name and Address Organization Details Last Updated DateTime 3 158.75 cm 19.6 kg/m2 26771.5 7 g 97 [degF] 97 % 97 % 69 /min 100 mm[Hg] 70 mm[Hg] Nataly Ireland [place] [facility] 3 10:48:55 Date Recorded Body height Body mass index (BMI) Body weight Body temperature Oxygen saturation Oxygen saturation in Arterial blood by Pulse oximetry Heart rate Systolic blood pressure Diastolic blood pressure Provider Name and Address Organization Details Last Updated DateTime 3 158.75 cm 20 kg/m2 65852.1 5 g 98.2 [degF] 98 % 98 % 62 /min 119 mm[Hg] 67 mm[Hg] Ariel Salamanca MA [facility] 3 14:39:37 Date Recorded Body height Body mass index (BMI) Body weight Body temperature Oxygen saturation Oxygen saturation in Arterial blood by Pulse oximetry Heart rate Systolic blood pressure Diastolic blood pressure Provider Name and Address Organization Details Last Updated DateTime 3 158.75 cm 20.2 kg/m2 08270.3 5 g 97.2 [degF] 95 % 95 % 47 /min 107 mm[Hg] 63 mm[Hg] Kenia Carter MA [facility] 3 15:35:11 Date Recorded Body height Body mass index (BMI) Body weight Body temperature Oxygen saturation Oxygen saturation in Arterial blood by Pulse oximetry Heart rate Systolic blood pressure Diastolic blood pressure Provider Name and Address Organization Details Last Updated DateTime 3 158.75 cm 20.4 kg/m2 14008.7 4 g 97.6 [degF] 93 % 93 % 69 /min 116 mm[Hg] 67 mm[Hg] Ariel Salamanca MA [facility] 3 11:12:36 Date Recorded Body weight Body mass index (BMI) Body height Oxygen saturation Oxygen saturation in Arterial blood by Pulse oximetry Heart rate Body temperature Systolic blood pressure Diastolic blood pressure Provider Name and Address Organization Details Last Updated DateTime 4 20656.8 3 g 18.2 kg/m2 158.75 cm 97 % 97 % 74 /min 97.1 [degF] 122 mm[Hg] 73 mm[Hg] Kenia Carter MA [facility] 4 11:35:34 Social History Question Answer Notes LastModified by Organizat ion Details LastModified Time Tobacco Smoking Status Never [facility] 05/02/2016 11:13:48 Do You Have An Advance [...] Anxious, Or Unable To Sleep At Night)? [id number] Information not available 11/28/2020 Do You Use [...] History Condition Response Coronary Artery Disease N Depression N COPD Y Blood Clots N Acid Reflux (GERD) Y Stroke N Eating Disorder N Skin Problems N Asthma N Substance Abuse N Liver Disease N Schizophrenia N Thyroid Problems Y GI Problems Y Anemia N Heart Attack ([place]) N Diabetes N Heart Failure N Atrial Fibrillation N High Blood Pressure N Muscle, Joint, or Bone Problems Y Arthritis Y Cancer N Headaches Y Kidney or Bladder Problems N Have you had a mammogram in the last yea r? N Allergies N Have you had a PSA blood test in the las t year? N Hepatitis N ADHD N High Cholesterol N Seizures/Epilepsy N Have you had a colonoscopy in the last 1 0 years? N Osteoporosis N Gynecological History Statement/Question Response If Post Menopausal, Age at Menopause 39 Date of Last Mammogram 06/22/2021 Obstetrics History GPAL:G 2 P 2 0 0 2 Type Value Full Term 2 Living 2 Total 2 Immunizations Vaccine Type Date Status Note Provider Nam e and Address Organization Details Recorded Time COVID-19 vaccine, vector-nr, rS-Ad26, PF, 0.5 mL 1 completed Not Available [facility] 05/12/2023 02:00:34 Influenza, split virus, trivalent, preservative 9 completed Not Available [facility] 05/12/2023 02:00:34 Influenza, split virus, trivalent, PF 4 completed Bouchra Gooden MD Attn: Accounting[address] [place], [address], [facility] 03/19/2024 12:47:12 Tdap 0 completed Shadi Garcia MA [facility], [place] - [facility] 09/21/2019 14:44:46 Tdap 10/06/200 9 completed Not Available [facility] 05/12/2023 02:00:34 Pneumococcal conjugate PCV20, polysaccharide TIP344 conjugate, adjuvant, PF 4 completed Neelima Tijerina MA null, [place] [facility] 03/19/2024 13:04:40 Influenza, split virus, quadrivalent, preservative 7 completed Not Available [facility] 05/12/2023 02:00:33 Past Encounters Encounter ID Performer Location Encounter Start Date Encounter Closed Date Diagnosis/Indication Diagnosis SNOMED-CT Code Diagnosis ICD10 Code [id number] Bouchra Gooden MD [facility] [address] [place] [address] 05/02/2016 11:04:24 05/03/2016 13:57:59 Acquired hypothyroidism 303247728 E03.9 Mitral valve disorder 11 437158 I05.9 Premenstru al tension syndrome 98264579 N94.3 [id number] Margot Arthur MA [facility] [address] [place] [address] 10/30/2016 09:43:13 10/30/2016 13:27:43 Acquired hypothyroidism 504866545 E03.9 Irritable bowel syndrome 73880306 K58.9 Mitral valve disorder 11 422359 I05.9 Spasm of s phincter of Oddi 98944150 K83.4 Premenstru al tension syndrome 22396386 N94.3 Adult heal th examination 281314348 Z00.01 Family his tory of diabetes mellitus in first degree relative 853502745 Z83.3 Screening for malignant neoplasm of colon 160251620 Z12.11 [id number] Bouchra Gooden MD [facility] [address] [place] [address] 05/02/2017 09:26:50 05/02/2017 14:59:25 Migraine without aura 88889396 G43.009 Acquired hypothyroidism 558749289 E03.9 Irritable bowel syndrome 15586255 K58.9 Multiple joint pain 3567 8005 M25.50 Premenstru al tension syndrome 35945582 N94.3 [id number] Bouchra Gooden MD [facility] [address] [place] [address] 10/30/2017 11:29:01 10/31/2017 09:17:14 Irritable bowel syndrome 99682993 K58.9 Acquired hypothyroidism 722858703 E03.9 Migraine without aura 56 193917 G43.009 Spasm of s phincter of Oddi 54450946 K83.4 Mitral valve disorder 11 485252 I05.9 Hyperkalemia 95633208 E8 7.5 [id number] Bouchra Gooden MD [facility] [address] [place] [address] 05/13/2018 10:55:57 05/14/2018 08:21:11 Irritable bowel syndrome 96688403 K58.9 Adult [facility] th examination 310013426 Z00.01 Screening for malignant neoplasm of breast 475204947 Z12.39 Acquired hypothyroidism 871966763 E03.9 Migraine without aura 56 016962 G43.009 Mood disorder 75865990 F 39 [id number] YOLI Rodriguez-Denzel [facility] [address] [place] [address] 05/17/2019 16:00:47 05/18/2019 08:50:40 Pain in right hand 9159041434 82592 M79.207 [id number] Bouchra Gooden MD [facility] [address] [place] [address] 06/28/2019 09:18:24 06/28/2019 16:01:33 Mood disorder 02109354 F39 Irritable bowel syndrome 44462817 K58.9 Mitral valve disorder 11 346638 I05.9 [id number] Bouchra Gooden MD [facility] [address] [place] [address] 09/21/2019 13:51:19 09/21/2019 20:34:37 Adult health examination 852142460 Z00.01 Acquired hypothyroidism 927666653 E03.9 Screening mammography 24 533208 Z12.31 Administra tion of diphtheria, pertussis, and tetanus vaccine 981312325 Z23 [id number] Bouchra Gooden MD [facility] [address] [place] [address] 11/28/2020 09:45:22 11/28/2020 15:10:27 Adult health examination 623758375 Z00.01 Acquired hypothyroidism 516399607 E03.9 Irritable bowel syndrome 78768871 K58.9 Mitral valve disorder 11 609449 I05.9 Intolerant of cold 22620 000 R68.89 Low back pain 706079162 M54.5 Cataract 347120958 H26.9 [id number] Bouchra Gooden MD [facility] [address] [place] [address] 11/09/2021 09:52:56 11/09/2021 14:49:27 Adult health examination 692414119 Z00.01 Postviral cough 86737350 4 R05.9 Degenerati on of lumbar intervertebral disc 83263411 M51.36 Mild neuro cognitive disorder 689866631 G31.84 Family his tory of diabetes mellitus in first degree relative 138431191 Z83.3 Cataract of right eye 81 0793227 H26.9 [id number] Bouchra Gooden MD [facility] [address] [place] [address] 03/15/2022 11:42:09 03/15/2022 15:55:50 Mood disorder 75111840 F39 Non-rheuma tic mitral valve disease 028643626 I34.9 Low back pain 974651320 M54.50 Poor short -term memory 794614437 R41.3 Influenza immunization advised 431208629 Z71.85 Immunization advised 310 830344 Z71.9 [id number] Bouchra Gooden MD [facility] [address] [place] [address] 05/28/2022 10:31:44 05/28/2022 15:35:40 Acute bronchitis 35408555 J20.9 Dyspnea 949925309 R06.00 Medical ex amination for suspected condition 827280929 Z04.9 Chronic ob structive pulmonary disease [id number] J44.9 [id number] Bouchra Gooden MD [facility] [address] [place] [address] 01/06/2023 14:15:54 01/07/2023 09:50:45 Difficulty coping with grief responses [id number] F43.20 [id number] Bouchra Gooden MD [facility] [address] [place] [address] 02/03/2023 15:16:26 02/04/2023 10:29:29 Difficulty coping with grief responses [id number] F43.20 Multiple p remature ventricular complexes 214561038 I49.3 [id number] Bouchra Gooden MD [facility] [address] [place] [address] 03/18/2023 10:52:23 03/19/2023 11:30:03 Non-rheumatic mitral valve disease [id number] I34.9 Cervical s pondylosis without myelopathy 737283039 M47.812 Adult heal th examination 077131865 Z00.01 Serum wendy min B12 below reference range 667078366 R79.89 Bereavement 99596571 Z63 .4 [id number] Bouchra Gooden MD [facility] [address] [place] [address] 03/19/2024 11:18:00 03/22/2024 09:55:24 Adult health examination 907730396 Z00.01 Bilateral arthritis of hands 5904513360 48128 M13.841 M13.842 Hyperlipidemia 41841710 E78.5 Cobalamin deficiency 190 416515 E53.8 Long-term drug therapy 340133559 Z79.891 Anxiety 21773598 F41.9 Administra tion of pneumococcal vaccine 42022739 Z23 Working th rough the pain of grief 127721247 F43.21 Health Concerns Section Related Observation LastModified by Organization Detai ls LastModified Time None Recorded Concern Status LastModified by Organization Details LastModified Time None Recorded Advance Directives Directive N: Payers Encounter Date Sequence Insurance Name Policy Number Policy Garrison Covered Member ID Garrison Member ID Guarantor Name 05/28/2022 1 [employer] (PPO) [id number] Obi Gama [id number] Obi Gama 01/06/2023 1 [employer] (PPO) [id number] Obi Gama [id number] Obi Gama 02/03/2023 1 [employer] (PPO) [id number] Obi Gama [id number] Obi Gama 03/18/2023 1 [employer] (PPO) [id number] Obi Gama [id number] Obi Gama 03/19/2024 1 [employer]MR (PPO) [id number] Obi Gama [id number] Obi Gama Notes Date Note Type Note Provider Name and Address Organization Details Recorded Time 05/28/2022 text/html Upper Respirator y SymptomsReported bypatient.Quality:prod uctive cough;congested;dry cough; feels much better since being in hospital, clear phlegm Context:no sick contacts; no foreign travel; newly diagnosed with emphysema Associated Symptoms:no sweats; no fever; no significant weight gain; no significant weight loss; no sore throat; no vomiting; no diarrhea; no rash; no nausea;shortness of breath;wheezing;fatigu eNotes:diagnosed with COPD at hospital-- had PFTs and to follow up with exhibit artist next weeknow on symbicort and using rescue inhaler as neededwas treated in [facility] for infection with antibiotics and steroids for the COPD-- she has completed all of the antibiotics given but is still on the taper prednisone no flu shot and is not interested in prevnar 20 at this time Bouchra Gooden MD Attn: Accounting[address] [place], [address], [facility] 05/28/2022 13:53:10 01/06/2023 text/html Generalized Anxi ety DisorderReported bypatient.Onset/Timing :10/07/22-- which was the of her Severity:moderate Context:depression; life stressors; having difficulty concentrating at work/ financial concerns/ crying uncontrollably/ has not removed possessions of her Associated Symptoms:no difficulty swallowing; no excessive sweating; no hot flashes; no shortness of breath; no nausea; no diarrhea; no irritability; no muscle tension; no muscle aches; no trembling; no twitching; no restlessness;difficult y concentrating;difficul ty controlling worry;excess anxiety;palpitations;f atigue;headaches;sleep disturbancesNotes:she is grieving the of her spouse Pt declined Flu due her receiving Flu Vax through her employment Bouchra Gooden MD Attn: Accounting[address] [facility], [place], [address], [facility] 01/06/2023 21:43:11 02/03/2023 text/html Generalized Anxi ety DisorderReported bypatient.Onset/Timing :10/07/22-- which was the of her Severity:moderate; she is off of work and doing well-- no FMLA issues or disability issues-- paperwork completed last week Context:depression; life stressors; would like to further discuss with provider on todays visit. Associated Symptoms:would rather go over visit with providerNotes:going to bed between -11 and wakes up around 6 ---some trouble falling asleep---waking up ot use toilet once a night and falling back asleepappetite is the same -- cooked last 3 nights ago- had pizza with family--and had left overs - no issues with focus some concentration issuesworking with a friend who is a counselor for her mental health Bouchra Gooden MD Attn: Accounting[address] [facility], [place], [address], [facility] 02/03/2023 19:42:25 03/18/2023 text/html annual exam - NO PAP Bouchra morales MD Attn: Accounting[address] [facility], [place], [address], [facility] 03/19/2023 07:47:06 03/19/2024 text/html since last OV-- 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
--- OUTSIDE RECORDS SUMMARY | 2024-04-02 18:37 | XMS_ITS | Encounter Summary ---
Author Organization [facility] Address formerly [facility]ly [facility]. [place], [place] [address] [place] [address] Care Team Providers Care Senior Medical Billing Specialist Name Role Phone Unavailable Primary Care Provider Unavailabl e Encounter Details Date Type Department Care Team (Late st Contact Info) Description 02/14/1994 Abstract [place] [address] , Generic Conversion, Social History Tobacco Use Types Packs/Day Years [...]
--- OUTSIDE RECORDS SUMMARY | 2024-04-02 18:38 | XMS_ITS | Encounter Summary ---
Author Organization [facility] Healthcare Address [address] [place] [address] Care Team Providers Care Hasher Machine Operator Name Role Phone Bouchra Vickers MD Primary Care Provider [phone] Sultan Elvin Mccartney MD Unavailable [phone] Donte Campuzano MD Unavailable [phone] Reason for Visit * Reason Onset Date Comments I left a message regarding t he CT biopsy results 07/15/2023 I left a message regarding t he CT biopsy results. Encounter Details Date Type Department Care Team (Late st Contact Info) Description 07/15/2023 Telephone [facility] Pulmonary [address] [place] [address] Donte Campuzano MD [address] [facility] [address] [address] I left a message regarding the CT biopsy results (I left a message regarding the CT biopsy results.) Social History Tobacco Use Types Packs/Day Years Used Date Smoking Tobacco: Never Personal Safety Answer Date Recorded Getting School Help Needed Not on file 05/22 Comments No Sex and Gender Information Value Date Recorded Sex Assigned at Not on file 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 There was evidence of noncaseating granulomas and the smears are pending for AFB and fungus. There was no evidence of malignancy. I called and left a message on her phone. documented in this encounter Plan of Treatment Not on file documented as of this encounter Visit Diagnoses Not on filedocumented in this encounter Care Teams Hasher Machine Operator Relationship Specialty Start Date End Date Bouchra Vickers MD [address] [address] PCP - General 01/18/19 Sultan Elvin Mccartney MD [address] [facility] [address] [address] Consulting Physician Cardiovascular Disease 05/22/22 Donte Campuzano MD [address] [facility] [address] [place] [address] [place] [address] Consulting Physician Pulmonary Disease 05/22/22 documented as of this encounter
--- OUTSIDE RECORDS SUMMARY | 2024-04-02 18:38 | XMS_ITS | Referral Summary ---
Author Organization [facility] Address [address] [place] [id number] Care Team Providers Care Bogger Operator Name Role Phone Bouchra Vickers MD Primary Care Provider [phone] Donte Campuzano MD Unavailable [phone] Encounters Date Type Department Care Team Description 02/20/2024 10:00 AM INSURANCE VERIFICATION CLERK Lab [facility] [address] [place] [id number] 02/20/2024 9:15 AM INSURANCE VERIFICATION CLERK Office Visit [facility] Pulmonology [address] [place] [address] [place] [phone] Donte Campuzano MD Centrilobular emphysema (HCC) (Primary Dx); Nodule of right lung; Gastroesophageal reflux disease without esophagitis 02/17/2024 11:45 AM INSURANCE VERIFICATION CLERK - 02/17/2024 11:59 PM INSURANCE VERIFICATION CLERK Hospital Encounter [facility] [employer] [address] [place] [id number] Discharge Disposition: Discharge to home or self care from Last 3 Months Allergies Active Allergy Reactions Criticality Noted Date Comments Adhesive Rash Medium 04/06/2021 red rash, burning Sumatriptan Anaphylaxis High Zolmitriptan Anaphylaxis High 04/06/2021 Throat Swelling, Medications metoprolol XL (TOPROL-XL) 50 mg extended release tablet Take 1 tablet (50 mg total) by mouth daily Active FLUoxetine (PROzac) 60 mg tablet Take 1 tablet (60 mg total) by mouth early childhood 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 Active nitroglycerin (NITROSTAT) 0.4 mg SL tablet For esophageal spasms only Active polyethylene glycol (MIRALAX) 17 gram/dose powder 013 Active albuterol HFA (PROVENTIL HFA,VENTOLIN HFA,PROAIR HFA) 90 mcg/actuation inhaler Inhale 2 puffs every 4 (four) hours as needed for wheezing 1 each 023 Active cyanocobalamin (Vitamin B-12) 1,000 mcg/mL injection cyanocobalamin (vit B-12) 1,000 mcg/mL injection solution ADMINISTER 1 ML UNDER THE SKIN EVERY MONTH Active estradioL (ESTRACE) 0.5 mg tabletIndicati ons:Menopausal symptoms Take 1 tablet (0.5 mg total) by mouth daily 30 tablet 11 024 2024 Active fluticasone propionate (FLONASE) 50 mcg/actuation nasal sprayIndicatio ns:Centrilobul ar emphysema (HCC) Administer 2 sprays into each nostril daily 16 g 6 024 Active Additional Information Patient not taking.Reported on 02/20/2024 predniSONE (DELTASONE) 5 mg tablet Take 3 tabs qam 90 tablet 2 024 Active budesonide-gly copyr-formoter ol (Breztri Aerosphere) 160-9-4.8 mcg/actuation inhaler INHALE 2 PUFFS BY MOUTH TWICE DAILY 10.7 g 4 024 Active omeprazole (PriLOSEC) 20 mg capsuleIndicat ions:Gastroeso phageal reflux disease without esophagitis TAKE 2 CAPSULES(40 MG) BY MOUTH DAILY 30 capsule 025 Active predniSONE (DELTASONE) 5 mg tabletIndicati ons:Centrilobu lar emphysema (HCC) One p.o. q.a.m. times 30 days 30 tablet 024 2023 omeprazole (PriLOSEC) 20 mg capsuleIndicat ions:Gastroeso phageal reflux disease without esophagitis Take 2 capsules (40 mg total) by mouth daily 30 capsule 024 2024 Discontinued Active Problems Problem Noted Date Diagnosed Date Nodule of right lung 07/17/2023 Assessment & Plan (02/20/2024 9:44 AM INSURANCE VERIFICATION CLERK): The patient did have the largest right lower lobe nodule biopsied which revealed noncaseating granulomas. The AFB and fungal cultures were negative from the BAL and the aerobic culture only grew normal upper respiratory alexys. I will check Histoplasma antibodies and also repeat another chest CT in 3 months to evaluate the ? new? nodules. I will review the current chest CT with our radiologists once the study has been loaded into the PACS system. 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 I will plan to decrease the prednisone to 15 mg p.o. daily and she will follow up here in 2 months with another chest CT prior to the appointment. The CT will be performed at [facility]. 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 I will repeat another chest CT in 2 weeks and she will follow up here in 4 weeks. Centrilobular emphysema 05/30/2023 Assessment & Plan (02/20/2024 9:43 AM INSURANCE VERIFICATION CLERK): The patient never smoked and does have mild emphysematous changes on the chest CT. She was exposed to secondhand smoke from her parents and her but her stopped smoking long ago. She did have a significant bronchodilator response on her PFTs from earlier this year. She will continue with Breztri 2 puffs b.i.d. and p.r.n. albuterol and I will give her 1 more month of prednisone to use 5 mg p.o. daily. Assessment & Plan (10/22/2023 1:10 PM CDT): Her breathing has been comfortable with breztri 2 puffs b.i.d. and p.r.n. albuterol Assessment & Plan (09/05/2023 9:00 AM CDT): The patient's breathing has improved with using the prednisone 20 mg daily. She continues on breztri 2 puffs b.i.d. and p.r.n. albuterol. Assessment & Plan (08/15/2023 10:44 AM CDT): The patient continues to benefit from breztri 2 puffs b.i.d. and p.r.n. albuterol. She did not start on any Mucinex and is not producing much phlegm at this time. Assessment & Plan (07/16/2023 9:52 AM CDT): The PFT findings are consistent with stage III COPD. She continues on breztri 2 puffs b.i.d., Mucinex 600 mg b.i.d. and p.r.n. albuterol. She also has a predominantly dry cough and I will give her a trial of Flonase 2 puffs in each nostril at bedtime. Assessment & Plan (07/02/2023 1:29 PM CDT): The patient has stage III COPD. She will continue with breztri 2 puffs b.i.d. and p.r.n. albuterol. She is using Mucinex 600 mg p.o. b.i.d. to attempt to thin secretions. Assessment & Plan (05/30/2023 10:16 AM INSURANCE VERIFICATION CLERK): She states that she is requiring her albuterol inhaler more often. She will continue with breztri 2 puffs b.i.d. and I will check full PFTs at [facility] and start Mucinex 600 mg p.o. b.i.d. to help thin the secretions I did recommend she increase her fluid intake. Chronic cough 07/26/2022 Assessment & Plan (07/26/2022 10:06 AM CDT): The patient did have an elevated IgE but would like to hold off on treating that at this time. The patient states the cough is better with the Breztri. Pulmonary nodule 06/12/2022 Assessment & Plan (08/15/2023 10:45 AM CDT): The patient had a right lower lobe nodule that was biopsied and revealed noncaseating granulomas. The BAL fluid culture is currently negative to date for any AFB or fungal organisms. I will start prednisone 20 mg daily for presumed nodular sarcoidosis. She will follow up here in 2 weeks and I will plan a repeat chest CT in mid-late August 2023. I did describe possible side effects related to the prednisone to include worsening of her reflux, visual changes, hypertension, possible diabetic symptoms and weight gain. Assessment & Plan (07/17/2023 8:18 AM CDT): The right lower lobe pulmonary nodules biopsy last week and is revealing noncaseating granulomas. The special stains are pending. I will consider a bronchoscopy to assess for infectious organisms if the stains are negative. I will also check a QuantiFERON gold. She will follow up here in 1 month. Addendum 17 July 2023 0815 The AFB and fungal stains returned negative for infectious organisms. I contacted the patient this morning and informed her of the results and I have recommended proceeding with a bronchoscopy with BAL of the right lower lobe to send for AFB smear and culture , fungal smear and culture and cytology. I would also perform endobronchial biopsies if an unexpected abnormality is apparent. I have explained the procedure to the patient including the risk and benefits of the procedure and I have answered all her questions. She is agreeable to proceed. Assessment & Plan (07/02/2023 1:29 PM CDT): The PET scan revealed a 1.8 cm right lower lobe nodule abutting the diaphragm and the SUV was 11. I was informed by Interventional Radiology that Dr. Nam could perform a CT-directed biopsy on 10 July 2023. I will check a CBC, PT PTT and she will have the blood work done today. She does use ibuprofen for chronic neck pain and I did ask her to stop this medication for the next week. Assessment & Plan (05/30/2023 10:15 AM INSURANCE VERIFICATION CLERK): The original 6 mm right lower lobe nodule is unchanged but there was a new area measuring 2.7 x 1.2 x 0.7 cm in the anterior basilar right lower lobe which was thought to be peripheral to a mucus impacted bronchus. I will have the chest CT loaded in our system and then contact her early next week regarding recommendations. She will follow-up with me in 3 months. Assessment & Plan (11/29/2022 10:58 AM CDT): The patient will need another CT scan in one year which will be late December early November 2023. She does complete these at [facility]. I have given the patient an order to have the CT scan completed. The patient is also going to last picker the disc from the CT scan at [facility] in May for [facility] to compare. Assessment & Plan (07/26/2022 10:05 AM CDT): I have ordered a CT scan of the chest for October of 2022. Assessment & Plan (06/12/2022 3:55 PM CDT): I have ordered a CT scan of the chest for October of 2022. Gastroesophageal reflux disease without esophagi tis 06/12/2022 Assessment & Plan (02/20/2024 9:44 AM INSURANCE VERIFICATION CLERK): She has been having increased reflux symptoms and I will give her a 1 month supply of Prilosec use 40 mg p.o. daily Assessment & Plan (10/22/2023 1:10 PM CDT): The patient continues on Prilosec and her reflux symptoms are under control. Assessment & Plan (09/05/2023 9:00 AM CDT): She continues to do well on Prilosec daily and states there reflux is not any worse since starting the prednisone. Assessment & Plan (08/15/2023 10:44 AM CDT): She continues on Prilosec daily for GERD. Assessment & Plan (07/16/2023 9:52 AM CDT): She continues on Prilosec for reflux. Assessment & Plan (07/02/2023 1:28 PM CDT): The GERD symptoms are controlled with Prilosec Assessment & Plan (05/30/2023 10:16 AM INSURANCE VERIFICATION CLERK): She continues on a proton pump inhibitor that is controlling the reflux. Assessment & Plan (11/29/2022 10:58 AM CDT): The patient continues on Prilosec. Assessment & Plan (07/26/2022 10:07 AM CDT): The patient continues on Prilosec. Assessment & Plan (06/12/2022 3:57 PM CDT): I did order omeprazole due to the patient stating that she does have some GERD. Hopefully this will help with her cough. Shortness of breath 05/19/2022 Mitral valve prolapse 05/19/2022 Acute respiratory failure with hypoxia (CMS/[facility]) 05/19/2022 Bronchitis with acute wheezing 05/19/2022 Mucus plugging of bronchi 05/19/2022 Chest pain 10/07/2014 Esophageal dysmotility 10/07/2014 Irritable bowel syndrome 10/07/2014 Constipation 10/07/2014 Resolved Problems Problem Noted Date Diagnosed Date Resolved Date Panlobular emphysema 06/12/2022 024 Assessment & Plan (11/29/2022 10:57 AM CDT): Patient continue with Breztri two puffs twice a day. Patient continue with her albuterol inhaler as needed up to 4 times a day for shortness of breath. Assessment & Plan (07/26/2022 10:06 AM CDT): Patient continue on Breztri two puffs twice a day. I have sent an prescription to the pharmacy. The patient continue to use her albuterol inhaler as needed up to 4 times a day for shortness of breath. The patient would like to hold off on treating the elevated IgE at this time. The patient states her cough is better with the Breztri. Assessment & Plan (06/12/2022 3:56 PM CDT): I did give the patient a sample of Breztri to try. The patient was instructed to use two puffs twice a day and to rinse her mouth after using it. The patient was instructed to stop using the Symbicort and Atrovent while using the Breztri. The patient continue to use her albuterol inhaler as needed up to 4 times a day for shortness of breath. The patient was also provided with a spacer to use with her inhalers. Immunizations Name Administration Dates Next Due Pneumococcal Conjugate Pcv20 03/19/2024 Social History Tobacco Use Types Packs/Day Years Used Date Smoking Tobacco: Never Smokeless Tobacco: Never Tobacco Cessation:Counseling Given: Not Answered AUDIT-C Answer Date Recorded Q1: How often do you have a drink containing alcohol? Monthly or less 08/01/2023 Q2: How many drinks containi ng alcohol do you have on a typical day when you are drinking? Patient does not drink Frequency of Binge Drinking Not on file 05/2023 Personal Safety Answer Date Recorded Have you ever been in or are you currently in a harmful physical or emotional relationship or is someone making you feel afraid or unsafe? Denies 08/01/2023 Comments No Sex and Gender Information Value Date Recorded Sex Assigned at Not on file Legal Sex Female 10:19 AM INSURANCE VERIFICATION CLERK Gender Identity Not on file Sexual Orientation Not on file Last Filed Vital Signs Vital Sign Reading Time Taken Comments Blood Pressure 126/78 02/20/2024 9:04 AM INSURANCE VERIFICATION CLERK Pulse 84 02/20/2024 9:04 AM INSURANCE VERIFICATION CLERK Temperature 36.6 ??C (97.8 ??F) 02/20/2024 9:04 AM CS T Respiratory Rate 22 02/20/2024 9:04 AM INSURANCE VERIFICATION CLERK Oxygen Saturation 99% 02/20/2024 9:04 AM INSURANCE VERIFICATION CLERK Inhaled Oxygen Concentration - - Weight 45.8 kg (101 lb) 02/20/2024 9:04 AM INSURANCE VERIFICATION CLERK Height 160 cm (5' 3 ) 02/20/2024 9:04 AM INSURANCE VERIFICATION CLERK Body Mass Index 17.89 02/20/2024 9:04 AM INSURANCE VERIFICATION CLERK Plan of Treatment Not on file Procedures Procedure Name Priority Date/Time Associated Diagnosis Comments HISTOPLASMA ANTIBODY Routine 02/20/2024 10:22 AM INSURANCE VERIFICATION CLERK CT BODY OUTSIDE REFERENCE Routine 02/17/2024 11:45 AM INSURANCE VERIFICATION CLERK SCREENING MAMMOGRAM BILATERAL W RICHI Schedule Routine, Read Routine (OP Routine) 06/21/2021 3:05 PM CDT Encounter for screening mammogram for malignant neoplasm of breast PAP AND HIGH RISK HPV, REFLEX TO GENOTYPING Routine 05/18/2021 10:53 AM INSURANCE VERIFICATION CLERK Well woman exam from Last 3 Months or Most Recently Relevant to Health Maintenance Results * Histoplasma Antibody Blood (02/20/2024 10:22 AM INSURANCE VERIFICATION CLERK) Histoplasma Ab, yeast CF Negative Negative [facility] Histoplasma Ab, Immunodiffusion Negative Negative KEYSHA Comment: A negative complement fixation and immunodiffusion (CF/ID) result does not exclude the diagnosis of histoplasmosis. ?? Repeat testing by CF/ID in 1-2 weeks if clinically indicated. Test Performed by: [place] [address] Antenna Machine Operator: Nicole Marcum Ph.D.; CLIA# [id number] Blood 02/20/2024 10:2 2 AM INSURANCE VERIFICATION CLERK 02/20/2024 10:43 AM INSURANCE VERIFICATION CLERK Donte Campuzano MD LAB MICROBIOLOGY - GENERA L ORDERABLES Final Result Performing Organization Address City/[facility] Co de Phone Number [facility] [address] [facility] Department [place] [address] [facility] * CT Body Outside Reference (02/17/2024 11:45 AM INSURANCE VERIFICATION CLERK) Narrative [email or web address] - 02/20/2024 11:21 AM INSURANCE VERIFICATION CLERK This order has been auto-finalized and does not contain a result. us Provider Transcribed Order IMG CT PROCEDURES Fin al Result Performing Organization Address [facility] Co de Phone Number [email or web address] * Screening Mammogram Bilateral W Richi (06/21/2021 3:05 PM CDT) Anatomical Region Laterality Modality Breast Bilateral Mammography Impressions 06/21/2021 3:19 PM CDT BI-RADS?? ATLAS category (overall): 1 - Negative There is no mammographic evidence of malignancy. A 1 year screening mammogram is recommended. The patient has been or will be contacted. We recommend annual screening mammography for women at average risk of breast cancer beginning at age 40, based on guidelines of the [place] [employer] (ACR Practice Parameter for the Performance of Screening and Diagnostic Mammography) and [place] [employer]. For women with and elevated risk of breast cancer, please refer to the ACR Practice Parameter for specific screening recommendations. The patient will be entered into a reminder system with a target due date of 1 year for her next screening exam. Narrative 06/21/2021 3:19 PM CDT Screening Mammogram Bilateral W Richi: 06/21/21 The study was acquired using full field digital technology and interpreted from soft copy. 2D digital mammographic views, as well as 3D digital tomosynthesis were performed in the CC and MLO projections. CLINICAL: ??Encounter for screening mammogram for malignant neoplasm of breast ??No relevant medical history has been documented for this patient. ?? History of breast cancer in Neg Hx. COMPARISONS: 09/22/2015 Screening Mammogram Bilateral W Richi BREAST TISSUE: The breasts have scattered areas of fibroglandular density. FINDINGS: No suspicious masses, suspicious calcifications, or other suspicious findings are seen within either breast. There has been no suspicious change. us Praveen Marie MD IMG MAMMO PROCEDURES Fi nal Result * Pap and High Risk HPV, reflex to Genotyping (05/18/2021 10:53 AM INSURANCE VERIFICATION CLERK) Thin prep (Pap test) 05/18/2021 10:53 AM INSURANCE VERIFICATION CLERK 05/21/2021 10:53 AM INSURANCE VERIFICATION CLERK Narrative PATHOLOGY [facility] - 05/24/2021 11:29 AM INSURANCE VERIFICATION CLERK [facility] Department of Pathology [address] [place], [place] [id number] Final Report with Addendum Note to Patients: This report may contain a detailed description of human tissue sent by a health care provider to the laboratory for pathologic evaluation. The content of this report is essential for diagnosis and may provide important critical findings. This information may be unfamiliar to patients to review without a medical professional present. It is advised that the patient review this report in the presence of a health care provider who can answer questions and explain the details. Patient Name: ??OBI GAMAChloe Address: ??[address], ?? [place], [place] ??[address] Gender: ??F : ??1965 (Age: 55) Service: ??Laboratory Location: ?? Hospital #: ??[id number] Patient Type: ??[facility] SPECIMEN Taken: ??05/18/2021 Received: ??05/21/2021 Accessioned:: ??05/22/2021 Reported: ??05/24/2021 Physician(s): Praveen Marie M.D. [facility] Diagnosis: Source of Specimen: ? SCREENING THIN PREP IMAGED PAP w/ HPV Specimen Adequacy: ?- Specimen satisfactory for evaluation (vaginal pap) General Category: ?- Negative for intraepithelial lesion or malignancy ?? RICHARD Munoz(ASCP) Report Electronically Reviewed and Signed Out By ??RICHARD Munoz(ASCP) ??05/24/2021 11:29:57 ??Addenda: HPV Test Interpretation NEGATIVE for types 16, 18, 31, 33, 35, 39, 45, 51, 52, 56, 58, 59, 66 and 68. Test performed utilizing Gen-Probe Aptima assay. ?? RICHARD Valera(ASCP) ??Report Electronically Reviewed and Signed Out By ??RICHARD Valera(ASCP) ??05/22/2021 13:35:34 ? Specimen(s) Received: A: SCREENING THIN PREP IMAGED PAP w/ HPV Clinical History: Menstrual History: Hysterectomy The Pap test is a screening test used to aid in the detection of cervical cancer and its precursors. ??It should not be the sole means by which malignant and premalignant lesions are diagnosed. ??Both false negative and false positive results may occur. ?? It also has poor sensitivity for the detection of endometrial lesions and should not be used to evaluate suspected endometrial abnormalities. ??For these reasons it is most important to obtain Pap tests at regular intervals. The performance characteristics of some immunohistochemical stains, fluorescence in-situ hybridization tests and immunophenotyping by flow cytometry cited in this report (if any) were determined by the Surgical Pathology Department at [facility] as part of an ongoing quality supervisor program and in compliance with federally mandated regulations drawn from the Clinical Laboratory Improvement Act of 1988 (CLIA '88). ??Some of these tests rely on the use of analyte specific reagents and are subject to specific labeling requirements by the US Food and Drug Administration. ??Such diagnostic tests may only be performed in a facility that is certified by the Department of Health and Human Services as a high complexity laboratory under CLIA '88. The FDA has determined that such clearance or approval is not necessary. ??This test is used for clinical purposes. ??It should not be regarded as investigational or for research. ??Nevertheless, federal rules concerning the medical use of analyte specific reagents require that the following disclaimer be attached to the report: This test was developed and its performance characteristics determined by the Surgical Pathology Department [facility]. ??It has not been cleared or approved by the U. S. Food and Drug Administration. Praveen Marie MD LAB CYTOLOGY ORDERABLES Final Result PATH[facility] from Last 3 Months or Most Recently Relevant to Health Maintenance Insurance [facility] Advance Directives For more information, please contact: [phone] * Full Code (Latest Code Status on File) Date Activated Date Inactivated Comments 07/10/2023 10:13 AM 07/11/2023 5:04 AM * Full Code Date Activated Date Inactivated Comments 05/19/2022 4:50 AM 05/22/2022 5:19 PM Care Teams Bogger Operator Relationship Specialty Start Date End Date Bouchra Vickers MD [address] [address] PCP - General 01/18/19 Donte Campuzano MD [address] [facility] [address] [address] Consulting Physician Pulmonary Disease 05/22/22
--- OUTSIDE RECORDS SUMMARY | 2024-04-02 18:38 | XMS_ITS | Encounter Summary ---
Author Organization [facility] Healthcare Address [address] [place] [address] Care Team Providers Care Razor Sharpener Name Role Phone Bouchra Vickers MD Primary Care Provider [phone] Donte Campuzano MD Unavailable [phone] Reason for Visit * Auth/Cert (Routine) Specialty Diagnoses / Procedures Referred By Contac t Referred To Contact Diagnoses Nodule of right lung Nodule of right lung [R91.1] Procedures IA BRNCHSC W/BRNCL ALVEOLAR LAVAGE IA BRNCHSC BRUSHING/PROTECTED BRUSHINGS IA BRONCHOSCOPY W/TRANSBRONCHIAL LUNG BX 1 LOBE BRONCHOSCOPY, BRUSHINGS, BIOPSY, LAVAGE Referral ID Status Reason Start Date Expiration Date Visits Re quested Visits Authorized [id number] 1 1 Encounter Details Date Type Department Care Team (Late st Contact Info) Description 08/01/2023 7:30 AM CDT - 08/01/2023 8:45 AM CDT Surgery [facility] OR [address] [place] [id number] Donte Campuzano MD [address] [place] [id number] BRONCHOSCOPY WITH BRONCHIAL ALVEOLAR LAVAGE Surgery Details Date/Time Status Location OR Service Patient Class Case Cl ass Case Type Trauma Case? 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 * Flexible Bronchoscopy (Discharge Care) (Nigerian) documented in this encounter Medications at Time of Discharge albuterol HFA (PROVENTIL HFA,VENTOLIN HFA,PROAIR HFA) 90 mcg/actuation inhaler Inhale 2 puffs every 4 (four) hours as needed for wheezing 1 each 05/22/2022 cyanocobalamin (Vitamin B-12) 1,000 mcg/mL injection cyanocobalamin (vit B-12) 1,000 mcg/mL injection solution ADMINISTER 1 ML UNDER THE SKIN EVERY MONTH estradioL (ESTRACE) 0.5 mg tabletIndicatio ns:Menopausal symptoms Take 1 tablet (0.5 mg total) by mouth daily 30 tablet 11 06/17/2023 5 FLUoxetine (PROzac) 60 mg tablet Take 1 tablet (60 mg total) by mouth sourcing consultant 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 fluticasone propionate (FLONASE) 50 mcg/actuation nasal sprayIndication s:Centrilobular emphysema (HCC) Administer 2 sprays into each nostril daily 16 g 6 07/16/2023 metoprolol XL (TOPROL-XL) 50 mg extended release tablet Take 1 tablet (50 mg total) by mouth daily nitroglycerin (NITROSTAT) 0.4 mg SL tablet For esophageal spasms only polyethylene glycol (MIRALAX) 17 gram/dose powder 04/24/2012 budesonide-glyc opyr-formoterol (Breztri Aerosphere) 160-9-4.8 mcg/actuation HFA aerosol inhaler Inhale 2 puffs 2 (two) times a day 10.7 g 11 07/26/2022 4 omeprazole (PriLOSEC) 20 mg capsule Take 1 capsule (20 mg total) by mouth daily 30 capsule 11 06/12/2022 4 documented as of this encounter Discharge Disposition Disposition Code Departure Means Destination Comment s Discharge to home or self care Wheelchair documented in this encounter H&P Notes * Donte Campuzano MD - 08/01/2023 6:52 AM CDT I have reviewed the H&P, examined the patient, and endorse the findings as written with the following changes/updates: I have seen and examined the patient and have reviewed her blood work . Plan of Care : Based on the above findings, I consider Obi Gama to be an acceptable risk for : Procedure(s): BRONCHOSCOPY, BRUSHINGS, BIOPSY, LAVAGE Source Note - Donte Campuzano MD - 07/27/2023 9:37 AM CDT General H&P Subjective Patient is a 58 y.o. female with chief complaint of right lower lobe nodule. HPI: The patient is a pleasant 58-year-old female with history of stage III COPD, GERD, mitral valve prolapse and right lower lobe nodule that underwent a CT- directed needle biopsy of the right lower lobenodule on 10 July 2023 and there was evidence of noncaseating granulomas. The special stains were negative for infectious organisms. The biopsy was consistent with sarcoidosis. She will be undergoing a fiberoptic bronchoscopy today for bronchoalveolar lavage of the right lower lobe to obtain cytology, AFB smear and culture, fungal smear and culture and aerobic g stain and culture. She never smoked cigarettes but was around secondhand smoke. Past Medical History: Diagnosis Date Emphysema lung (HCC) Esophageal spasm takes tng for tx IBS (irritable bowel syndrome) Migraine no longer Mitral valve prolapse Mood disorder (HCC) MVP (mitral valve prolapse) takes metoprolol for tx Pulmonary nodule Pulmonary sarcoidosis (HCC) Past Surgical History: Procedure Laterality Date BLADDER SUSPENSION CHOLECYSTECTOMY HYSTERECTOMY LUNG BIOPSY 07/10/2023 No medications prior to admission. Allergies Allergen Reactions Adhesive Rash red rash, burning Sumatriptan Anaphylaxis Reaction: ANAPHYLAXIS Zolmitriptan Other (See comments) Reaction: Throat Swelling, Social History Tobacco Use Smoking status: Never Smokeless tobacco: Never Substance and Sexual Activity Drug use: Yes Types: Marijuana Comment: gummys Sexual activity: Yes Partners: Male control/protection: Hysterectomy Alcohol Use: Unknown (07/22/2023) AUDIT-C Frequency of Alcohol Consumption: Not on file Average Number of Drinks: Patient does not drink Frequency of Binge Drinking: Not on file Family History Problem Relation Age of Onset Hypertension Mother Family history of hypertension - (Added by TW Conv) Diabetes Mother Family history of diabetes mellitus - (Added by TW Conv) Breast cancer Neg Hx Ovarian cancer Neg Hx Review of Systems Constitutional: Negative for appetite change, fever and unexpected weight change. HENT: Negative for rhinorrhea, sinus pressure, sinus pain, sore throat and tinnitus. Respiratory: Positive for cough and shortness of breath. Negative for wheezing. Cardiovascular: Negative for chest pain, palpitations and leg swelling. History of mitral valve prolapse Gastrointestinal: Negative for abdominal pain, diarrhea and nausea. Genitourinary: Negative for hematuria. Musculoskeletal: Positive for back pain. Negative for arthralgias and myalgias. Skin: Negative for color change. Allergic/Immunologic: Negative for environmental allergies and food allergies. Neurological: Negative for dizziness and light-headedness. Objective Vitals: Arrival Vitals Temp Pulse Resp BP SpO2 Temp src Heart Rate Source Patient Position BP Location FiO2 (%) 24hr Min/Max: No data recorded Most Recent : There were no vitals filed for this visit. No intake/output data recorded. No intake/output data recorded. Physical Exam Constitutional: Appearance: She is well-developed. HENT: Head: Normocephalic and atraumatic. Eyes: Pupils: Pupils are equal, round, and reactive to light. Cardiovascular: Rate and Rhythm: Normal rate and regular rhythm. Pulmonary: Effort: Pulmonary effort is normal. Breath sounds: Normal breath sounds. Abdominal: General: Bowel sounds are normal. Palpations: Abdomen is soft. Musculoskeletal: General: Normal range of motion. Cervical back: Normal range of motion and neck supple. Skin: General: Skin is warm and dry. Neurological: Mental Status: She is alert and oriented to person, place, and time. Lab/Radiology/Diagnostic Review: XR Chest 1 View Result Date: 07/10/2023 Narrative: EXAM DESCRIPTION: XR CHEST 1 VIEW REASON FOR STUDY: right lower lobe lung biopsy Post right lower lobe lung biopsy x 07/10/23. TECHNIQUE: 1 radiographic view(s) of the chest. COMPARISON: 07/10/2023 FINDINGS: LUNGS: No focal opacity, pleural effusion, or pneumothorax. Subtle nodule in the right lung base. HEART/MEDIASTINUM: Cardiac silhouette normal in size. Mediastinal and hilar contours appear normal. LINES/TUBES: None. BONES: No acute osseous abnormality. IMPRESSION: No evidence of pneumothorax. THIS IS AN ELECTRONICALLY VERIFIED FINAL REPORT 07/10/2023 12:51 PM - Electronically signed by Carlos Nam M.D. KR T: Report ID: [id number] Reading Location: [id number] XR Chest 1 View Result Date: 07/10/2023 Narrative: EXAM DESCRIPTION: XR CHEST 1 VIEW REASON FOR STUDY: right lower lobe lung biopsy Post right lower lobe lung biopsy TECHNIQUE: 1 radiographic view(s) of the chest. COMPARISON: Chest CT 07/10/2023 FINDINGS: LUNGS: No focal opacity, pleural effusion, or pneumothorax. Subtle nodule is seen in the right lung base. HEART/MEDIASTINUM: Cardiac silhouette normal in size. Mediastinal and hilar contours appear normal. LINES/TUBES: None. BONES: No acute osseous abnormality. IMPRESSION: No evidence of pneumothorax following a right lower lobe biopsy. No other acute complication. THIS IS AN ELECTRONICALLY VERIFIED FINAL REPORT 07/10/2023 12:51 PM - Electronically signed by Carlos KEY T: Report ID: [id number] Reading Location: [id number] CT Lung Needle Biopsy Right Result Date: 07/10/2023 Narrative: EXAM DESCRIPTION: CT NEEDLE BIOPSY LUNG RIGHT HISTORY: Right lower lobe nodule Right lower lobe lung nodule seen on prior imaging requiring CT guided biopsy CT guided percutaneous biopsy of this mass is requested. COMPARISON: CT chest 05/28/2023; PET-CT 06/26/2023 TECHNIQUE: The risks ofthe procedure were discussed with the patient. Written and verbal informed consent was obtained. The patient was placed on the CT table in the prone position. The skin was marked. The skin was prepped and draped in sterile fashion. 1% lidocaine was utilized as a local anesthetic. Under CT guidance,a 17-gauge coaxial needle was directed to the right lower lobe lung nodule. Needle placement was documented with CT images. Through this coaxial needle and under CT guidance, four separate 18-gauge core biopsy samples were obtained and given to pathology. Conscious sedation: Conscious sedation was administered with continuous monitoring of patient's vital signs and oxygenation by the dedicated nurse. Nursing monitoring lasted for approximately 42 minutes during the procedure. Medications administered as follows: Versed 1 mg, IV Fentanyl 50 mcg, IV Estimated Blood Loss: <5 mL FINDINGS: CT imaging after the procedure demonstrates a small amount of hemorrhage in the biopsy tract. The patient tolerated the procedure well and was transported to the recovery unit. CT imaging demonstrates the needle in the right lower lobe lung nodule. There is no immediate significant postprocedural pneumothorax that requires a chest tube. CT imaging performed using dose optimization techniques as appropriate to exam in accordance with CT guided procedure protocols. IMPRESSION: Technically successful CT-guided percutaneous core biopsies of a right lower lobe lung nodule. Pathology is pending. THIS IS AN ELECTRONICALLY VERIFIED FINAL REPORT 07/10/2023 10:08 AM - Electronically signed by Carlos KEY T: Report ID: [id number] Reading Location: [id number] Assessment 1.) Right lower lobe nodule 2.) History of stage III COPD Plan The CT-directed biopsy did reveal noncaseating granulomas consistent with sarcoidosis. The special stains were negative for infectious organisms. She will be undergoing a fiberoptic bronchoscopy to perform bronchoalveolar lavage of the right lower lobe to obtain cytology, AFB smear and culture, fungal smear and culture and g stain C&S. The QuantiFERON gold was negative on 16 July 2023. Continue with breztri 2 puffs b.i.d., Mucinex 600 mg p.o. b.i.d. and p.r.n. albuterol * Donte Campuzano MD - 07/27/2023 9:37 AM CDT General H&P Subjective Patient is a 58 y.o. female with chief complaint of right lower lobe nodule. HPI: The patient is a pleasant 58-year-old female with history of stage III COPD, GERD, mitral valve prolapse and right lower lobe nodule that underwent a CT- directed needle biopsy of the right lower lobenodule on 10 July 2023 and there was evidence of noncaseating granulomas. The special stains were negative for infectious organisms. The biopsy was consistent with sarcoidosis. She will be undergoing a fiberoptic bronchoscopy today for bronchoalveolar lavage of the right lower lobe to obtain cytology, AFB smear and culture, fungal smear and culture and aerobic g stain and culture. She never smoked cigarettes but was around secondhand smoke. Past Medical History: Diagnosis Date Emphysema lung (HCC) Esophageal spasm takes tng for tx IBS (irritable bowel syndrome) Migraine no longer Mitral valve prolapse Mood disorder (HCC) MVP (mitral valve prolapse) takes metoprolol for tx Pulmonary nodule Pulmonary sarcoidosis (HCC) Past Surgical History: Procedure Laterality Date BLADDER SUSPENSION CHOLECYSTECTOMY HYSTERECTOMY LUNG BIOPSY 07/10/2023 No medications prior to admission. Allergies Allergen Reactions Adhesive Rash red rash, burning Sumatriptan Anaphylaxis Reaction: ANAPHYLAXIS Zolmitriptan Other (See comments) Reaction: Throat Swelling, Social History Tobacco Use Smoking status: Never Smokeless tobacco: Never Substance and Sexual Activity Drug use: Yes Types: Marijuana Comment: luis Sexual activity: Yes Partners: Male control/protection: Hysterectomy Alcohol Use: Unknown (07/22/2023) AUDIT-C Frequency of Alcohol Consumption: Not on file Average Number of Drinks: Patient does not drink Frequency of Binge Drinking: Not on file Family History Problem Relation Age of Onset Hypertension Mother Family history of hypertension - (Added by TW Conv) Diabetes Mother Family history of diabetes mellitus - (Added by TW Conv) Breast cancer Neg Hx Ovarian cancer Neg Hx Review of Systems Constitutional: Negative for appetite change, fever and unexpected weight change. HENT: Negative for rhinorrhea, sinus pressure, sinus pain, sore throat and tinnitus. Respiratory: Positive for cough and shortness of breath. Negative for wheezing. Cardiovascular: Negative for chest pain, palpitations and leg swelling. History of mitral valve prolapse Gastrointestinal: Negative for abdominal pain, diarrhea and nausea. Genitourinary: Negative for hematuria. Musculoskeletal: Positive for back pain. Negative for arthralgias and myalgias. Skin: Negative for color change. Allergic/Immunologic: Negative for environmental allergies and food allergies. Neurological: Negative for dizziness and light-headedness. Objective Vitals: Arrival Vitals Temp Pulse Resp BP SpO2 Temp src Heart Rate Source Patient Position BP Location FiO2 (%) 24hr Min/Max: No data recorded Most Recent : There were no vitals filed for this visit. No intake/output data recorded. No intake/output data recorded. Physical Exam Constitutional: Appearance: She is well-developed. HENT: Head: Normocephalic and atraumatic. Eyes: Pupils: Pupils are equal, round, and reactive to light. Cardiovascular: Rate and Rhythm: Normal rate and regular rhythm. Pulmonary: Effort: Pulmonary effort is normal. Breath sounds: Normal breath sounds. Abdominal: General: Bowel sounds are normal. Palpations: Abdomen is soft. Musculoskeletal: General: Normal range of motion. Cervical back: Normal range of motion and neck supple. Skin: General: Skin is warm and dry. Neurological: Mental Status: She is alert and oriented to person, place, and time. Lab/Radiology/Diagnostic Review: XR Chest 1 View Result Date: 07/10/2023 Narrative: EXAM DESCRIPTION: XR CHEST 1 VIEW REASON FOR STUDY: right lower lobe lung biopsy Post right lower lobe lung biopsy x 07/10/23. TECHNIQUE: 1 radiographic view(s) of the chest. COMPARISON: 07/10/2023 FINDINGS: LUNGS: No focal opacity, pleural effusion, or pneumothorax. Subtle nodule in the right lung base. HEART/MEDIASTINUM: Cardiac silhouette normal in size. Mediastinal and hilar contours appear normal. LINES/TUBES: None. BONES: No acute osseous abnormality. IMPRESSION: No evidence of pneumothorax. THIS IS AN ELECTRONICALLY VERIFIED FINAL REPORT 07/10/2023 12:51 PM - Electronically signed by Carlos KEY T: Report ID: [id number] Reading Location: [id number] XR Chest 1 View Result Date: 07/10/2023 Narrative: EXAM DESCRIPTION: XR CHEST 1 VIEW REASON FOR STUDY: right lower lobe lung biopsy Post right lower lobe lung biopsy TECHNIQUE: 1 radiographic view(s) of the chest. COMPARISON: Chest CT 07/10/2023 FINDINGS: LUNGS: No focal opacity, pleural effusion, or pneumothorax. Subtle nodule is seen in the right lung base. HEART/MEDIASTINUM: Cardiac silhouette normal in size. Mediastinal and hilar contours appear normal. LINES/TUBES: None. BONES: No acute osseous abnormality. IMPRESSION: No evidence of pneumothorax following a right lower lobe biopsy. No other acute complication. THIS IS AN ELECTRONICALLY VERIFIED FINAL REPORT 07/10/2023 12:51 PM - Electronically signed by Carlos KEY T: Report ID: [id number] Reading Location: [id number] CT Lung Needle Biopsy Right Result Date: 07/10/2023 Narrative: EXAM DESCRIPTION: CT NEEDLE BIOPSY LUNG RIGHT HISTORY: Right lower lobe nodule Right lower lobe lung nodule seen on prior imaging requiring CT guided biopsy CT guided percutaneous biopsy of this mass is requested. COMPARISON: CT chest 05/28/2023; PET-CT 06/26/2023 TECHNIQUE: The risks ofthe procedure were discussed with the patient. Written and verbal informed consent was obtained. The patient was placed on the CT table in the prone position. The skin was marked. The skin was prepped and draped in sterile fashion. 1% lidocaine was utilized as a local anesthetic. Under CT guidance,a 17-gauge coaxial needle was directed to the right lower lobe lung nodule. Needle placement was documented with CT images. Through this coaxial needle and under CT guidance, four separate 18-gauge core biopsy samples were obtained and given to pathology. Conscious sedation: Conscious sedation was administered with continuous monitoring of patient's vital signs and oxygenation by the dedicated nurse. Nursing monitoring lasted for approximately 42 minutes during the procedure. Medications administered as follows: Versed 1 mg, IV Fentanyl 50 mcg, IV Estimated Blood Loss: <5 mL FINDINGS: CT imaging after the procedure demonstrates a small amount of hemorrhage in the biopsy tract. The patient tolerated the procedure well and was transported to the recovery unit. CT imaging demonstrates theneedle in the right lower lobe lung nodule. There is no immediate significant postprocedural pneumothorax that requires a chest tube. CT imaging performed using dose optimization techniques as appropriate to exam in accordance with CT guided procedure protocols. IMPRESSION: Technically successful CT-guided percutaneous core biopsies of a right lower lobe lung nodule. Pathology is pending. THIS ISAN ELECTRONICALLY VERIFIED FINAL REPORT 07/10/2023 10:08 AM - Electronically signed by Carlos Nam M.D. KR T: Report ID: [id number] Reading Location: [id number] Assessment 1.) Right lower lobe nodule 2.) History of stage III COPD Plan The CT-directed biopsy did reveal noncaseating granulomas consistent with sarcoidosis. The special stains were negative for infectious organisms. She will be undergoing a fiberoptic bronchoscopy to perform bronchoalveolar lavage of the right lower lobe to obtain cytology, AFB smear and culture, fungal smear and culture and g stain C&S. The QuantiFERON gold was negative on 16 July 2023. Continue with breztri 2 puffs b.i.d., Mucinex 600 mg p.o. b.i.d. and p.r.n. albuterol documented in this encounter Procedure Notes * Donte Campuzano MD - 08/01/2023 7:52 AM CDTAssociated Order(s): Bronchoalveloar Lavage Post-Procedure Diagnose(s): Nodule of right lung Images from the original note were not included. Bronchoalveloar Lavage Date/Time: 08/01/2023 7:52 AM Performed by: Donte Campuzano MD Authorized by: Donte Campuzano MD Procedure-Fiberoptic bronchoscopy with right lower lobe bronchoalveolar lavage Date 08/01/2023 Indication-Right lower lobe nodule with noncaseating granulomas on CT directed biopsy Preop diagnosis-Nodular sarcoidosis Postop diagnosis-Same Switchboard Mechanic- Donte Campuzano MD Procedure- After informed consent was obtained, the patient was taken to the operating room and general anesthesia was induced. The patient was intubated with an 8.5 endotracheal tube. The fiberopticbronchoscope was inserted via the endotracheal tube and the major airways were inspected. There were no endobronchial lesions and no evidence of chronic bronchitis. There were minimal white secretions scattered throughout the airways. The right lower lobe lateral segment was identified and the bronchoscope was wedged into position. 120 cc of saline was instilled into the right lower lobe with approximately 25-30 cc return of BAL fluid. The patient tolerated the procedure well. Estimated blood loss- None Complication- None readily apparent. A postop chest x-ray is pending. Donte Campuzano MD documented in this encounter Miscellaneous Notes * Perioperative Nursing Note - Digna Gil RN - 07/22/2023 3:16 PM CDT Phone assessment completed with patient. Pre op instructions, showering and npo guidelines all explained and copy of all information put in my chart. Voiced understanding of all information. Patient wants any testing to be done am of surgery is aware if any abnormal's could delay or cancel surgery. * Pre-Procedure Instructions - Digna Gil RN - 07/22/2023 3:11 PM CDT Images from the original note were not included. [address] [address] Surgery Reminder Checklist: Please arrive to [facility] Outpatient [facility] Department for scheduled surgeryon 08/01/23Friday arrive at 5:30 am for surgery at 7:30 am. If the surgeon's office tells you to arrive at a different time after we have given you instructions, please follow their instructions. Please use Entrance A also known as [facility], then follow the signs to the RIGHT for Outpatient Surgery. DO NOT eat or drink after midnight (this includes water, all liquids, gum, mints, hard candy, and chewable antacids). ONLY TAKE THE FOLLOWING MEDICATIONS MORNING OF SURGERY: BREZTRI INHALER, ESTRACE, PROZAC, METOPROLOL XL, OMEPRAZOLE. BRING ALBUTEROL INHALER AND DO IF NEEDED. (you may take your medications with enough water to safely swallow them) DO NOT drink alcohol, smoke cigarettes/vapes/e-cigarettes during the 12 hours prior to your surgery. DO NOT use marijuana for 24 hours prior to surgery. DO NOT take illicit/illegal drugs of any kind for 7 days prior to surgery. PLEASE FOLLOW YOUR SURGEON'S GUIDELINES REGARDING IBUPROFEN, ALEVE, MULTIVITAMINS, HERBAL SUPPLEMENTS, FISH OIL AND VITAMIN E. YOU MAY BE REQUIRED TO TO HOLD THESE FOR 1-2 WEEKS BEFORE SURGERY. May take TYLENOL (ACETAMINOPHEN) as needed for pain. [place] your teeth morning of procedure. Use mouth wash if available. Do not swallow any liquids whencleansing your mouth. Shower with Antibacterial soap the evening before your surgery and morning of. Antibacterial Soap Examples: Dial or Safeguard. After showering, do not apply any lotions, colognes, oils, deodorant, powder, or make-up. VISITOR POLICY: Patients in outpatient/surgical settings may have 2 dedicated visitors; children may be permitted as one of the 2 visitors, provided they are accompanied by a caregiver as the second visitor. Children can not be left unattended in the hospital setting. MORNING OF SURGERY PLEASE BRING: ANY NEW PRESCRIPTIONS THAT WERE NOT REVIEWED AT YOUR PRE-TESTING APPOINTMENT OR DURING YOUR SCREENING CALL. PHOTO ID INSURANCE CARD Expect to remove wigs, dentures/partials, contact lenses, piercings, hearing aids, and prostheses before surgery. Do not wear jewelry to the hospital on the day of surgery. Bring glasses and hearing aids (with cases for both), inhalers, and CPAP/BiPAP machine day of surgery. If you will be admitted to the hospital after surgery, feel free to bring a toiletry bag. Arrange for a friend or family member to pick you up from the hospital, drive you home, and assist you if necessary. You will not be allowed to drive home. NO non-medical transport services (buses, taxis, etc.) allowed. A responsible adult must be with you for 24 hours after your procedure. Call your surgeon if you develop a rash, fever, cold, or any other signs/symptoms of infection prior to surgery. You must call your surgeon if you have signs or symptoms of COVID or FLU. If someone in your home tests positive for COVID please call your surgeon. Please call us with any new prescriptions that were not discussed during your pre testing phone call so that we can give you appropriate pre op instructions. Any questions/concerns, please call Pre Anesthesia Testing at [phone]. Morning of surgery question/concerns, please call Outpatient Surgery at [phone]. Thank You Digna RAHMAN * Pre-Procedure Instructions - Digna Gil RN - 07/22/2023 10:41 AM CDT Images from the original note were not included. The [facility]'s Pre Anesthesia Testing department is trying to reach you regarding your upcoming procedure. We need to review and update you chart for our anesthesia team which includes updating your Health History and any Medications your are currently taking. We will give you detailed instructions that you need to follow prior to you procedure. This phone call will last approximately 20 - 30 minutes. Please call us at [phone]. If we don't answer please leave a voicemail with a good phone number and time we can reach you. We work Friday - Friday 830 am - 5:30 pm. You may call us at anytime and leave a Voicemail so we know that you are getting our messages. Thank You! Digna RAHMAN documented in this encounter Plan of Treatment Not on file documented as of this encounter Procedures Procedure Name Priority Date/Time Associated Diagnosis Comments XR CHEST 1 VIEW Timed 08/01/2023 8:25 AM CDT BRONCHOALVEOLAR LAVAGE Routine 7:52 AM CDT Nodule of right lung AEROBIC CULTURE AND GRAM STAIN Routine 08/01/2023 7:40 AM CDT MYCOLOGY (FUNGAL) CULTURE Routine 08/01/2023 7:40 AM CDT MYCOBACTERIOLOGY AFB CULTURE AND ACID-FAST STAIN Routine 08/01/2023 7:40 AM CDT CYTOLOGY Routine 08/01/2023 7:39 AM CDT Nodule of right lung BRONCHOSCOPY 08/01/2023 7:28 AM CDT Nodule of right lung EGFR Routine 08/01/2023 6:15 AM CDT Nodule of right lung DIFFERENTIAL AUTO Routine 08/01/2023 6:1 5 AM CDT Nodule of right lung CBC WITH AUTO DIFFERENTIAL Routine 08/01/2023 6:15 AM CDT Nodule of right lung APTT Routine 08/01/2023 6:15 AM CDT Nodule of right lung PROTIME-INR Routine 08/01/2023 6:15 AM CDT Nodule of right lung BASIC METABOLIC PANEL Routine 08/01/2023 6:15 AM CDT Nodule of right lung ECG 12-LEAD STAT 08/01/2023 6:09 AM CDT documented in this encounter Results * XR Chest 1 View (08/01/2023 8:25 AM CDT) Anatomical Region Laterality Modality Body, Chest N/A Computed Radiogr aphy 08/01/2023 9:15 AM CDT Narrative 08/01/2023 9:53 AM CDT EXAM DESCRIPTION: XR CHEST 1 VIEW REASON FOR STUDY: Status post bronchoscopy with right lower lobe bronchoalveolar lavage ?? Post bronch ?? TECHNIQUE: Single ??radiographic view(s) of the chest. COMPARISON: Radiograph dated June FINDINGS: LUNGS: ??Extensive airspace opacities seen involving the right lower lobe. ??The lungs are otherwise clear. ??Pulmonary vascular is within normal limits. ??No pneumothorax. ?? HEART/MEDIASTINUM: ??Cardiac silhouette normal in size. Mediastinal and hilar contours appear normal. LINES/TUBES: ??None. BONES: ??No acute osseous abnormality. IMPRESSION: Extensive airspace opacities involving the right lower lobe. No pneumothorax. THIS IS AN ELECTRONICALLY VERIFIED FINAL REPORT 08/01/2023 9:53 AM - Electronically signed by ??Chris SINGH D: ??08/01/2023 9:53 AM T: Report ID: [id number] Reading Location: ??[id number] Procedure Note Chris Oliva MD - 08/01/2023 EXAM DESCRIPTION: XR CHEST 1 VIEW REASON FOR STUDY: Status post bronchoscopy with right lower lobe bronchoalveolar lavage Post bronch TECHNIQUE: Single radiographic view(s) of the chest. COMPARISON: Radiograph dated June FINDINGS: LUNGS: Extensive airspace opacities seen involving the rightlower lobe. The lungs are otherwise clear. Pulmonary vascular is within normal limits. No pneumothorax. HEART/MEDIASTINUM: Cardiac silhouette normal in size. Mediastinal andhilar contours appear normal. LINES/TUBES: None. BONES: No acute osseous abnormality. IMPRESSION: Extensive airspace opacities involving the right lower lobe. Nopneumothorax. THIS IS AN ELECTRONICALLY VERIFIED FINAL REPORT 08/01/2023 9:53 AM - Electronically signed by Chrsi SINGH T: Report ID: [id number] Reading Location: [place] [address] us Donte Campuzano MD IMG XR PROCEDURES Final R esult * BRONCHOALVEOLAR LAVAGE (08/01/2023 7:52 AM CDT) Narrative Donte Campuzano MD - 08/01/2023 7:52 AM CDT Donte Campuzano MD ? 08/01/2023 ??7:58 AM Bronchoalveloar Lavage Date/Time: 08/01/2023 7:52 AM Performed by: Donte Campuzano MD Authorized by: Donte Campuzano MD ?? Donte Campuzano MD IN CLINIC/BEDSIDE ORDERAB LES Final Result * Aerobic culture and gram stain Bronchoalveolar lavage Lobe, right lower (08/01/2023 7:40 AM CDT) Direct Specimen Exam Stain: Cytospin Gram stain shows: No polymorphonuclear leukocytes seen. No squamous epithelial cells seen. No organisms seen. Comment:Testing performed by : [facility], [address] [place]., [address] Report Final Report: Growth indicates upper respiratory jerome. KEYSHA Comment:Testing performed by : [facility], [address] [place]., [address] Organism GROWTH INDICATES UPPER RESPIRATORY JEROME. KEYSHA Bronchoalveolar lavage (Lobe, right lower) 08/01/2023 7:40 AM CDT 08/01/2023 12:12 PM CDT Narrative KEYSHA - 08/09/2023 2:09 PM CDT Right lower lobe bronchial alveolar lavage Testing performed by [facility] ([phone]) Specimens submitted from normally sterile body sites will have all bacterial morphotypes identified. ??Specimens that contain grossly mixed jerome and/or are from body sites that are not normally sterile will be examined for Staphylococcus aureus, Pseudomonas aeruginosa, beta-hemolytic strep, vancomycin-resistant Enterococcus and fungus. ??If any of these are isolated, the organism will be reported. Current interpretive data was last revised on 2016. Donte Campuzano MD LAB MICROBIOLOGY - GENERA L ORDERABLES Final Result [facility] [address] [facility] Department [place] [address] * Mycology (fungal) culture Bronchoalveolar lavage Lobe, right lower (08/01/2023 7:40 AM CDT) Report Final Report: No growth of fungus Comment:Testing performed by : [facility], [address] [place]., [address] Bronchoalveolar lavage (Lobe, right lower) 08/01/2023 7:40 AM CDT 08/01/2023 12:12 PM CDT Narrative KEYSHA HONG - 08/29/2023 7:55 AM CDT Right lower lobe bronchial alveolar lavage Testing performed by [facility] ([phone]). Donte Campuzano MD LAB MICROBIOLOGY - GENERA L ORDERABLES Final Result Performing Organization Address [facility] Co de Phone Number [place] [address] [place], [place] [id number] * Mycobacteriology (AFB) culture and acid-fast stain Bronchoalveolar lavage Lobe, right lower (08/01/2023 7:40 AM CDT) Direct Specimen Exam Stain: No Acid-fast bacilli seen Comment:Testing performed by : [facility], [address] [place]., [address] Report Final Report: No growth of acid-fast bacilli KEYSHA HONG Comment:Testing performed by : [facility], [address] [place] [address]., [address] Bronchoalveolar lavage (Lobe, right lower) 08/01/2023 7:40 AM CDT 08/01/2023 12:12 PM CDT Narrative KEYSHA HONG - 09/29/2023 11:01 AM CDT Right lower lobe bronchial alveolar lavage Testing performed by [facility] ([phone]). Donte Campuzano MD LAB MICROBIOLOGY - GENERA L ORDERABLES Final Result Performing Organization Address City/[facility]/ZIP Co de Phone Number [address] [place] [address] * Cytology (08/01/2023 7:39 AM CDT) Fluid (Bronch Lavage (Cytology)) 08/01/2023 7:39 AM CDT Narrative [facility] - 08/04/2023 5:40 PM CDT EPIC results best viewed via link to PDF [facility] [place] [address] Note to Patients: This report may contain [...] can answer questions and explain the details. CYTOPATHOLOGY REPORT FINAL Patient Name: ?? OBI GAMAChloe Gender: ??F : ??1965 (Age: 58) Address: ??[address] [place] [place], [place] ??[address] Hospital #: ??[id number] Taken:08/01/2023 Received:08/01/2023 Reported: 08/04/2023 Patient Type: B SDS OUTPATIENT ?? Service: Surgery Location: Physician(s): ??Jose Mathis Dr., M.D. FINAL DIAGNOSIS Bronchoalveolar lavage, right lower lobe ? - Negative for malignancy or opportunistic infection hrk/08/04/2023 17:40 By this signature, I attest that the above diagnosis is based upon my personal examination of the slides(and/or other material indicated in the diagnosis). Latisha Thomas M.D. Report Electronically Reviewed and Signed Out By ??Latisha Thomas M.D. 08/04/2023 17:40:01 Telly Pawan, CT (ASCP) Gross Description A. ??Right lower lobe bronchial alveolar lavage: ??10 ml cloudy fluid - 1 Pap stained ThinPrep. (ep) Clinical Diagnosis and History The patient is a 58 year old woman with nodule of right lung. Microscopic slide review and interpretation for this case was performed at [facility], Department of Surgical Pathology, [address] [facility] [address], [id number], ??[facility] [place], [place] ??[address] ?? CLIA # [id number] REPORT IMAGES AND SCANNED DOCUMENTS, IF INCLUDED, ONLY VIEWABLE IN PDF VERSION OF REPORT The performance characteristics of some immunohistochemical stains, in-situ hybridization and fluorescence in-situ hybridization tests and immunophenotyping by flow cytometry cited in this report (if any) were determined by the Surgical Pathology and Flow Cytometry Departments at [facility] as part of an ongoing principal quality engineer program and in compliance with federally mandated [...] a high complexity laboratory under CLIA '88. ??The FDA has determined that such clearance or approval is not necessary. ??This test is used for clinical purposes. ??It should not be regarded as investigational or for research. ??Nevertheless, federal rules concerning the medical use of analyte specific reagents require that the following disclaimer be attached to the report: ??This test was developed and its performance characteristics determined by the Surgical Pathology and Flow Cytometry Departments of [facility]. ??It has not been cleared or approved by the U. S. Food and Drug Administration. us Donte Campuzano MD LAB CYTOLOGY ORDERABLES F inal Result [facility] * eGFR (08/01/2023 6:15 AM CDT) eGFR >90 >=60 mL/min/1. 73 m2 Comment: Interpretive Data Reference Interval Normal ?>/= 90 mL/min/1.73m2 Mildly decreased* ? 60 - 89 mL/min/1.73m2 Mildly to moderately decreased ?45 - 59 mL/min/1.73m2 Moderately to severely decreased ??30 - 44 mL/min/1.73m2 Severely decreased ?15 - 29 mL/min/1.73m2 Kidney Failure ?< 15 ??mL/min/1.73m2 *Relative to young adult level Estimated glomerular filtration rate is determined by the 2020 CKD-EPI equation recommended by the National Kidney Foundation (A Unifying Approach to GFR Estimation: Recommendations of the NKF-ASK Task Force on Reassessing the Inclusion of Race in Diagnosing Kidney Disease, JASN 2020). The CKD-EPI equation should not be used for patients with unstable renal function and has not been validated in children and those over 70. Current interpretive data was last reviewed 2021. Blood 08/01/2023 6:15 AM CDT 08/01/2023 6:19 AM CDT us Donte Campuzano MD LAB BLOOD ORDERABLES Kathy rivera Result [facility] [address] [facility] [place] [address] * Differential, auto (08/01/2023 6:15 AM CDT) Pathologist [facility] Neutrophil abs 2.0 1.5 - 6.5 K/cumm Imm gran abs 0.0 0.0 - 0.1 K/cumm [facility] Lymphocyte abs 1.5 0.8 - 3.3 K/cumm [facility] Monocyte abs 0.4 0.2 - 0.8 K/cumm [facility] Eosinophil abs 0.2 0.0 - 0.5 K/cumm [facility] Basophil abs 0.1 0.0 - 0.1 K/cumm [facility] Neutrophil pct 47.8 % [facility] Comment: Interpretive Data Percent cell count reference ranges are not reported, since discordance with absolute values may lead to misinterpretation of CBC data. Current Interpretive Data was last revised on 2017. Imm gran pct 0.2 % [facility] Comment: Interpretive Data Percent cell count reference ranges are not reported, since discordance with absolute values may lead to misinterpretation of CBC data. Current Interpretive Data was last revised on 2017. Lymphocyte pct 35.3 % [facility] Comment: Interpretive Data Percent cell count reference ranges are not reported, since discordance with absolute values may lead to misinterpretation of CBC data. Current Interpretive Data was last revised on 2017. Monocyte pct 8.9 % [facility] Comment: Interpretive Data Percent cell count reference ranges are not reported, since discordance with absolute values may lead to misinterpretation of CBC data. Current Interpretive Data was last revised on 2017. Eosinophil pct 5.6 % [facility] Comment: Interpretive Data Percent cell count reference ranges are not reported, since discordance with absolute values may lead to misinterpretation of CBC data. Current Interpretive Data was last revised on 2017. Basophil pct 2.2 % [facility] Comment: Interpretive Data Percent cell count reference ranges are not reported, since discordance with absolute values may lead to misinterpretation of CBC data. Current Interpretive Data was last revised on 2017. Blood 08/01/2023 6:15 AM CDT 08/01/2023 6:19 AM CDT us Donte Campuzano MD LAB BLOOD ORDERABLES Kathy rivera Result [facility] [address] [facility] [address] Department [place] [address] * CBC with auto differential (08/01/2023 6:15 AM CDT) WBC 4.1 3.8 - 9.9 K/cumm Hgb 12.1 11.9 - 15.5 g/dL [facility] Hct 35.9 35.6 - 45.5 % [facility] Plt 200 150 - 400 K/cumm [facility] MPV 9.7 9.1 - 12.3 fL [facility] RBC 4.11 3.90 - 5.20 M/cumm [facility] MCV 87.3 81.3 - 96.4 fL [facility] MCH 29.4 27.1 - 33.3 pg [facility] MCHC 33.7 32.3 - 35.7 g/dL [facility] RDW CV 12.7 11.1 - 14.9 % [facility] RDW SD 40.5 35.7 - 48.1 fL [facility] NRBC abs 0.00 0.00 - 0.01 K/cumm [facility] Blood 08/01/2023 6:15 AM CDT 08/01/2023 6:19 AM CDT us Donte Campuzano MD LAB BLOOD ORDERABLES Kathy l Result [facility] [address] [facility] [address] Department [place] [address] * Basic metabolic panel (08/01/2023 6:15 AM CDT) Sodium 143 135 - 145 mmol/L Potassium, pl 3.9 3.3 - 4.9 mmol/L [facility] Chloride 107 97 - 110 mmol/L [facility] CO2 26 22 - 32 mmol/L [facility] Anion gap 10 2 - 15 mmol/L [facility] BUN 10 6 - 25 mg/dL [facility] Creatinine 0.74 0.60 - 1.10 mg/dL [facility] Glucose 98 70 - 199 mg/dL [facility] Comment: Interpretive Data Fasting glucose >/= 126 mg/dl is diagnostic for diabetes. ?? Fasting is defined as no caloric intake for at least 8 hours. Fasting glucose between 100 mg/dl to 125 mg/dl is diagnostic of prediabetes. In a patient with classic symptoms of hyperglycemia or hyperglycemic crisis, a random glucose >/= 200 mg/dl is diagnostic for diabetes. In the absence of unequivocal hyperglycemia, results should be confirmed by repeat testing. The classification and Diagnosis of Diabetes Diabetes Care 202; 46: S19-S40. Current interpretive data was last revised 2022. Calcium 9.0 8.5 - 10.3 mg/dL KEYSHA Blood 08/01/2023 6:15 AM CDT 08/01/2023 6:19 AM CDT Result [facility] Donte Campuzano MD LAB BLOOD ORDERABLES Kathy l Result Performing Organization Address [facility] de Phone Number [address] [address] * Protime-INR (08/01/2023 6:15 AM CDT) PT 12.9 12.0 - 14.6 sec INR 1.0 0.9 - 1.2 [facility] Comment: Ref Range High Interpretive data Oral anticoagulant therapeutic ranges: Venous thromboembolism prophylaxis or treatment: 2.0-3.0 CARDIOLOGY Standard range: 2.0-3.0 High-intensity range: 2.5-3.5 Refer to indication-specific guidelines for appropriate target ranges for prosthetic heart valve replacement. Current interpretive data was last revised on 2019. Blood 08/01/2023 6:15 AM CDT 08/01/2023 6:19 AM CDT Result [facility] Donte Campuzano MD LAB BLOOD ORDERABLES Kathy l Result Performing Organization Address [facility] de Phone Number [address] [address] * aPTT (08/01/2023 6:15 AM CDT) aPTT 27 22 - 37 sec Comment: Interpretive data aPTT test has not been evaluated for monitoring heparin therapy. The anti-Xa is the preferred test. Current interpretive data was last revised on 2019. Blood 08/01/2023 6:15 AM CDT 08/01/2023 6:19 AM CDT Result [facility] Donte Campuzano MD LAB BLOOD ORDERABLES Kathy l Result Performing Organization Address [facility]/ZIP Co de Phone Number KEYSHA [address] [facility] [place] [address] * ECG 12 lead (08/01/2023 6:09 AM CDT) Ventricular Rate EKG/Min 70 BPM [facility] Atrial Rate 70 BPM [facility] IA-Interval (MSEC) 186 ms [facility] QRS-Interval (MSEC) 76 ms [facility] QT-Interval (MSEC) 404 ms [facility] QTc 436 ms [facility] P [place] 77 degrees [facility] R [place] 60 degrees [facility] T [place] 66 degrees [facility] Diagnosis Normal sinus rhythm Normal ECG When compared with ECG of 18-MAY-2022 21:30, Premature ventricular complexes are no longer Present Confirmed by KATHY HARRIS M.D. ([id number]) on 08/04/2023 10:07:00 AM [facility] 08/01/2023 6:09 AM CDT 08/04/2023 10:07 AM CDT us Jimenez Draper MD ECG ORDERABLES Final Result Performing Organization Address [facility] Phone Number [facility] [employer] [facility] documented in this encounter Visit Diagnoses Diagnosis Nodule of right lung- Primary Other diseases of lung, not elsewhere classified Nodule of right lung Other diseases of lung, not elsewhere classified documented in this encounter Admitting Diagnoses Diagnosis Nodule of right lung Other diseases of lung, not elsewhere classified documented in this encounter Administered Medications Inactive Administered Medications - up to 3 most recent administrations Medication Order MAR Action Action Date Dose Rate Site acetaminophen (TYLENOL) tablet 975 mg 975 mg, oral, Once, On Fri08/01/23 at 0615, For 1 dose, Pre-Op, Indications: Pre-Emptive AnalgesiaIndications:Pre-Emptive Analgesia Given 08/01/2023 6:04 AM CDT 975 mg Carrier Fluids for Secondary Infusion - 0.9% Sodium Chloride 30 mL, intravenous, As needed, For priming tubing and/or flushing, Starting on Fri08/01/23 at 0538, Pre-Op, 0-250 ml/hr to flush line after IV infusions when no maintenance IV ordered. Infuse 30mL at the same rate as the secondary infusion. Run as primary IV, not intended for KVO. famotidine (PEPCID) tablet 20 mg 20 mg, oral, Once, On Fri08/01/23 at 0615, For 1 dose, Pre-Op, Indications: gastroesophageal reflux diseaseIndications:gastroesophagea l reflux disease Given 08/01/2023 6:04 AM CDT 20 mg Lactated Ringer's (LR) infusion 30 mL/hr, intravenous, Continuous, Starting on Fri08/01/23 at 0615, Pre-Op Restarted 08/01/2023 7:34 AM CDT Rate/Dose Verify 08/01/2023 7:30 AM CDT 30 mL/h r Restarted 08/01/2023 7:08 AM CDT ondansetron (ZOFRAN) injection 4 mg 4 mg, intravenous, Administer over 2 Minutes, Once as needed, nausea, vomiting, Starting on Fri08/01/23 at 0755, For 1 dose, Phase I, Proceed to metoclopramide if ondansetron has been given within the last 6 hours. Given 08/01/2023 8:30 AM CDT 4 mg sodium chloride 0.9% flush 0.5-20 mL 0.5-20 mL, intra-catheter, As needed, line care, Starting on Fri08/01/23 at 0538, Pre-Op, Flush volume based on line type and size. Flush before and after each use. sodium chloride 0.9% flush 0.5-20 mL 0.5-20 mL, intra-catheter, As needed, line care, Starting on Fri08/01/23 at 0538, Pre-Op, Flush volume based on line type and size. Flush before and after each use. documented in this encounter Active and Recently Administered Medications Times are shown in CDT. Scheduled Medication Order 07/30/2023 07/31/2023 08/01/2023 acetaminophen (TYLENOL) tablet 975 mg (COMPLETED) 975 mg, oral, Once, On Fri08/01/23 at 0615, For 1 dose, Pre-Op, Indications: Pre-Emptive Analgesia 0604 (Given - Provid er: Landy Goodwin RN) famotidine (PEPCID) tablet 20 mg (COMPLETED) 20 mg, oral, Once, On Fri08/01/23 at 0615, For 1 dose, Pre-Op, Indications: gastroesophageal reflux disease 0604 (Given - Provid er: Landy Goodwin RN) Continuous Medication Order 07/30/2023 07/31/2023 08/01/2023 Lactated Ringer's (LR) infusion 30 mL/hr, intravenous, Continuous, Starting on Fri08/01/23 at 0615, Pre-Op 0614 (New Bag - Prov ider: Landy Goodwin RN)0707 (Paused - Provider: Saul Barrera CRNA - Comment: Switch to gravity)0708 (Restarted - Provider: Saul Barrera CRNA)0730 (Rate/Dose Verify - Provider: Saul Barrera CRNA)0733 (Paused - Provider: Saul Barrera CRNA - Comment: Switch to gravity)0734 (Restarted - Provider: Saul Barrera CRNA)0748 (Anesthesia Volume Adjustment - Provider: Saul Barrera CRNA)1459 (Due: Stopped) Lactated Ringer's (LR) infusion 125 mL/hr, intravenous, Continuous, Starting on Fri08/01/23 at 0830, Phase I 0830 (Due) PRN Medication Order 07/30/2023 07/31/2023 08/01/2023 Carrier Fluids for Secondary Infusion - 0.9% Sodium Chloride 30 mL, intravenous, As needed, For priming tubing and/or flushing, Starting on Fri08/01/23 at 0538, Pre-Op, 0-250 ml/hr to flush line after IV infusions when no maintenance IV ordered. Infuse 30mL at the same rate as the secondary infusion. Run as primary IV, not intended for KVO. naloxone (NARCAN) 0.4 mg/mL injection 0.04-0.4 mg (COMPLETED) 0.04-0.4 mg, intravenous, Once as needed, other, excessive sedation/respiratory depression, Starting on Fri08/01/23 at 0755, For 1 dose, Phase I, Dilute 0.4 mg with 9 mL NS (final concentration 0.04 mg/mL). For respiratory depression (respiratory rate less than 6), administer 0.4 mg IVP over 30 seconds. For excessive sedation administer 0.04 mg (1 mL) every 1 minute until desired level of alertness. For IV, administer over 30 seconds., Indications: Opioid Toxicity 0800 (Given - Provid er: Saul Barrera CRNA) ondansetron (ZOFRAN) injection 4 mg (COMPLETED) 4 mg, intravenous, Administer over 2 Minutes, Once as needed, nausea, vomiting, Starting on Fri08/01/23 at 0755, For 1 dose, Phase I, Proceed to metoclopramide if ondansetron has been given within the last 6 hours. 0830 (Given - Provid er: Jimenez Tuttle RN) sodium chloride 0.9% flush 0.5-20 mL 0.5-20 mL, intra-catheter, As needed, line care, Starting on Fri08/01/23 at 0538, Pre-Op, Flush volume based on line type and size. Flush before and after each use. sodium chloride 0.9% flush 0.5-20 mL 0.5-20 mL, intra-catheter, As needed, line care, Starting on Fri08/01/23 at 0538, Pre-Op, Flush volume based on line type and size. Flush before and after each use. documented in this encounter Orders Medications Ordered That Luke ht Not Have Been Administered Count Last Ordered Date First Ordered Date Carrier Fluids for Secondary Infusion - 0.9% Sodium Chloride 1 08/01/2023 diphenhydrAMINE (BENADRYL) 5 0 mg/mL injection 12.5 mg 1 08/01/2023 fentaNYL (SUBLIMAZE) preserv ative free injection 25 mcg 1 08/01/2023 fentaNYL (SUBLIMAZE) preserv ative free injection 50 mcg 08/01/2023 hydrALAZINE (APRESOLINE) injection 5 mg 1 0 08/01/2023 HYDROmorphone (DILAUDID) injection 0.2 mg 1 08/01/2023 HYDROmorphone (DILAUDID) injection 0.4 mg 1 08/01/2023 labetaloL (NORMODYNE,TRANDAT E) injection 5 mg 1 08/01/2023 Lactated Ringer's (LR) infusion meperidine (DEMEROL) preserv ative free injection 25 mg 1 08/01/2023 metoclopramide (REGLAN) 5 mg /mL injection 10 mg 1 08/01/2023 naloxone (NARCAN) 0.4 mg/mL injection 0.04-0.4 mg 1 08/01/2023 sodium chloride 0.9% flush 0.5-20 mL 2 05/2023 Discharge Count Last Ordered Date First Orde red Date DISCHARGE PATIENT 1 08/01/2023 documented in this encounter Care Teams Razor Sharpener Relationship Specialty Start Date End Date Bouchra Vickers MD [address] [address] PCP - General 01/18/19 Donte Campuzano MD [address] [facility] [address] [place] [address] Consulting Physician Pulmonary Disease 05/22/22 documented as of this encounter
--- OUTSIDE RECORDS SUMMARY | 2024-04-02 18:38 | XMS_ITS | Encounter Summary ---
Author Organization [facility] Healthcare Address [address] [place] [address] Care Team Providers Care Block Chopper Hand Name Role Phone Bouchra Vickers MD Primary Care Provider [phone] Donte Campuzano MD Unavailable [phone] Reason for Visit * Reason Comments Follow-up 4 weeks Encounter Details Date Type Department Care Team (Late st Contact Info) Description 08/15/2023 10:15 AM CDT Office Visit [facility] Pulmonology [address] [place] [phone] Donte Campuzano MD [address] [place] [id number] Centrilobular emphysema (HCC) (Primary Dx); Nodule of right lung; Pulmonary nodule; Gastroesophageal reflux disease without esophagitis Social History Tobacco Use Types Packs/Day Years [...] on file 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 Gender Identity Not on file Sexual Orientation Not on file documented as of this encounter Last Filed Vital Signs Vital Sign Reading Time Taken Comments Blood Pressure 116/68 08/15/2023 10:21 AM CDT Pulse 68 08/15/2023 10:21 AM CDT Temperature 36.6 ??C (97.8 ??F) 08/15/2023 10:21 AM C DT Respiratory Rate 18 08/15/2023 10:21 AM CDT Oxygen Saturation 96% 08/15/2023 10:21 AM CDT Inhaled Oxygen Concentration - - Weight 49.1 kg (108 lb 3.2 oz) 08/15/2023 10:21 AM CDT Height 160 cm (5' 3 ) 08/15/2023 10:21 AM CDT Body Mass Index 19.17 08/15/2023 10:21 AM CDT documented in this encounter Ordered Prescriptions Prescription Sig Dispense Quantity Refills Last Filled Start Date End Date predniSONE (DELTASONE) 20 mg tabletIndications: Nodule of right lung Take 1 tablet (20 mg) by mouth daily for 28 doses 14 tablet 1 08/15/2023 09/05/2023 documented in this encounter Progress Notes * Donte Campuzano MD - 08/15/2023 10:15 AM CDT Images from the original note were not included. rogress Note Patient: Obi Gama ( - 1965) is a 58 y.o. female. Visit Date: 08/15/2023 History of Present Illness: The patient is a pleasant 58-year-old female that returns for follow-up after bronchoscopy with BAL. The cytology was negative for malignant cells or opportunistic organisms. The aerobic culture revealed only normal respiratory alexys. The AFB and fungal smears and cultures are negative to date. Sheis breathing comfortably but still has some dyspnea with exertion. Her chronic dry cough has improved. She continues on breztri 2 puffs b.i.d. and p.r.n. albuterol. Her QuantiFERON gold was negative.Her reflux is under control with Prilosec daily. Past Medical History: Past Medical History: Diagnosis Date Delayed emergence from general anesthesia Emphysema lung (HCC) Esophageal spasm takes tng for tx IBS (irritable bowel syndrome) Migraine no longer Mitral valve prolapse Mood disorder (HCC) MVP (mitral valve prolapse) takes metoprolol for tx PONV (postoperative nausea and vomiting) Pulmonary nodule Pulmonary sarcoidosis ([facility]) Surgical History: Past Surgical History: Procedure Laterality Date BLADDER SUSPENSION CHOLECYSTECTOMY HYSTERECTOMY LUNG BIOPSY 07/10/2023 Current Medications: Current Outpatient Medications Medication Sig Dispense Refill albuterol HFA (PROVENTIL HFA,VENTOLIN HFA,PROAIR HFA) 90 mcg/actuation inhaler Inhale 2 puffs every4 (four) hours as needed for wheezing 1 each 0 mioauabhps-qcpalgkz-vthrfyxmto (Breztri Aerosphere) 160-9-4.8 mcg/actuation HFA aerosol inhaler Inhale 2 puffs 2 (two) times a day 10.7 g 11 cyanocobalamin (Vitamin B-12) 1,000 mcg/mL injection cyanocobalamin (vit B-12) 1,000 mcg/mL injection solution ADMINISTER 1 ML UNDER THE SKIN EVERY MONTH estradioL (ESTRACE) 0.5 mg tablet Take 1 tablet (0.5 mg total) by mouth daily 30 tablet 11 FLUoxetine (PROzac) 60 mg tablet Take 1 tablet (60 mg total) by mouth sheet rock taper 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 fluticasone propionate (FLONASE) 50 mcg/actuation nasal spray Administer 2 sprays into each nostrildaily 16 g 6 metoprolol XL (TOPROL-XL) 50 mg extended release tablet Take 1 tablet (50 mg total) by mouth daily nitroglycerin (NITROSTAT) 0.4 mg SL tablet For esophageal spasms only omeprazole (PriLOSEC) 20 mg capsule Take 1 capsule (20 mg total) by mouth daily 30 capsule 11 polyethylene glycol (MIRALAX) 17 gram/dose powder predniSONE (DELTASONE) 20 mg tablet Take 1 tablet (20 mg) by mouth daily for 28 doses 14 tablet 1 No current facility-administered medications for this visit. Allergies: Allergies Allergen Reactions Sumatriptan Anaphylaxis Zolmitriptan Anaphylaxis Throat Swelling, Adhesive Rash red rash, burning Family History: Family History Problem Relation Age of Onset Hypertension Mother Family history of hypertension - (Added by TW Conv) Diabetes Mother Family history of diabetes mellitus - (Added by TW Conv) Breast cancer Neg Hx Ovarian cancer Neg Hx Social History: Social History Tobacco Use Smoking status: Never Smokeless tobacco: Never Substance and Sexual Activity Drug use: Yes Types: Marijuana Comment: gumnikkis Sexual activity: Yes Partners: Male control/protection: Hysterectomy Alcohol Use: Unknown (08/01/2023) AUDIT-C Frequency of Alcohol Consumption: Monthly or less Average Number of Drinks: Patient does not drink Frequency of Binge Drinking: Not on file Review of Systems: Review of Systems Constitutional: Negative for appetite change, fever and unexpected weight change. HENT: Negative for rhinorrhea, sinus pressure, sinus pain, sore throat and tinnitus. Respiratory: Positive for cough, shortness of breath and wheezing. Cardiovascular: Negative for chest pain, palpitations and leg swelling. Gastrointestinal: Negative for abdominal pain, diarrhea and nausea. GERD Genitourinary: Negative for hematuria. Musculoskeletal: Positive for arthralgias. Negative for back pain and myalgias. Skin: Negative for color change. Allergic/Immunologic: Negative for environmental allergies and food allergies. Neurological: Negative for dizziness and light-headedness. Physical Exam: Vitals: 08/15/23 1021 BP: 116/68 BP Location: Right arm Patient Position: Sitting Pulse: 68 Resp: 18 Temp: 36.6 ??C (97.8 ??F) TempSrc: Tympanic SpO2: 96% Weight: 49.1 kg (108 lb 3.2 oz) Height: 160 cm (5' 3 ) Physical Exam Constitutional: Appearance: She is well-developed. [...] and oriented to person, place, and time. Data Reviewed Images: Chest x-ray 01 Aug 2023 IMPRESSION: Extensive airspace opacities involving the right lower lobe. No pneumothorax. Assessment and Plan: Diagnoses and all orders for this visit: Centrilobular emphysema (HCC) (Primary) Assessment & Plan: The patient continues to benefit from breztri 2 puffs b.i.d. and p.r.n. albuterol. She did not start on any Mucinex and is not producing much phlegm at this time. Nodule of right lung - predniSONE (DELTASONE) 20 mg tablet; Take 1 tablet (20 mg) by mouth daily for 28 doses Pulmonary nodule Assessment & Plan: The patient had a right lower lobe [...] hypertension, possible diabetic symptoms and weight gain. Gastroesophageal reflux disease without esophagitis Assessment & Plan: She continues on Prilosec daily for GERD. Rendering Provider & Department: Donte Campuzano MD documented in this encounter Miscellaneous Notes * Assessment & Plan Note - Donte Campuzano MD - 08/15/2023 10:44 AM CDT Associated Problem(s): Gastroesophageal reflux disease without esophagitis She continues on Prilosec daily for GERD. * Assessment & Plan Note - Donte Campuzano MD - 08/15/2023 10:44 AM CDT Associated Problem(s): Centrilobular emphysema (HCC) The patient continues to benefit from breztri 2 puffs b.i.d. and p.r.n. albuterol. She did not start on any Mucinex and is not producing much phlegm at this time. * Assessment & Plan Note - Donte Campuzano MD - 08/15/2023 10:43 AM CDT Associated Problem(s): Pulmonary nodule The patient had a right lower lobe [...] hypertension, possible diabetic symptoms and weight gain. documented in this encounter Plan of Treatment Not on file documented as of this encounter Visit Diagnoses Diagnosis Centrilobular emphysema (HCC)- Primary Nodule of right lung Other diseases of lung, not elsewhere classified Pulmonary nodule Other diseases of lung, not elsewhere classified Gastroesophageal reflux disease without esophagitis Esophageal reflux documented in this encounter Care Teams Block Chopper Hand Relationship Specialty Start Date End Date Bouchra Vickers MD [address] [address] PCP - General 01/18/19 Donte Campuzano MD [address] [address] Consulting Physician Pulmonary Disease 05/22/22 documented as of this encounter
--- OUTSIDE RECORDS SUMMARY | 2024-04-02 18:38 | XMS_ITS | Encounter Summary ---
Author Organization [facility] Healthcare Address [address] [place] [address] Care Team Providers Care Vault Maker Name Role Phone Bouchra Vickers MD Primary Care Provider [phone] Donte Campuzano MD Unavailable [phone] Reason for Referral * MRI/CAT/PET Scan (Routine) - Pending Review Specialty Diagnoses / Procedures Referred By Contac t Referred To Contact Radiology Diagnoses Nodule of right lung Procedures CT Chest WO Contrast Donte Campuzano MD [address] [place] [address] [address] [place] [id number] Phone: tel: fax: External Order Referral ID Status Reason Start Date Expiration Date V isits Requested Visits Authorized [id number] Pending Review 02/20/2024 03/21/2025 1 1 ANY SECRETARY Reason for Visit * Reason Comments Follow-up 4 month Encounter Details Date Type Department Care Team (Late st Contact Info) Description 02/20/2024 9:15 AM COMPANY 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 Office Visit [facility] Pulmonology [address] [facility] [address] [place] [phone] Donte Campuzano MD [address] [place] [address] [address] [place] [address] Centrilobular emphysema (HCC) (Primary Dx); Nodule of right lung; Gastroesophageal reflux disease without esophagitis Social History Tobacco Use Types Packs/Day Years Used Date Smoking Tobacco: Never Smokeless Tobacco: Never AUDIT-C Answer Date Recorded Q1: How often [...] on file 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 Gender Identity Not on file Sexual Orientation Not on file documented as of this encounter Last Filed Vital Signs Vital Sign Reading Time Taken Comments Blood Pressure 126/78 02/20/2024 9:04 AM COMPANY SECRETARY Pulse 84 02/20/2024 9:04 AM COMPANY SECRETARY Temperature 36.6 ??C (97.8 ??F) 02/20/2024 9:04 AM CS T Respiratory Rate 22 02/20/2024 9:04 AM COMPANY SECRETARY Oxygen Saturation 99% 02/20/2024 9:04 AM COMPANY SECRETARY Inhaled Oxygen Concentration - - Weight 45.8 kg (101 lb) 02/20/2024 9:04 AM COMPANY SECRETARY Height 160 cm (5' 3 ) 02/20/2024 9:04 AM COMPANY SECRETARY Body Mass Index 17.89 02/20/2024 9:04 AM COMPANY SECRETARY documented in this encounter Ordered Prescriptions Prescription Sig Dispense Quantity Refills Last Filled Start Date End Date omeprazole (PriLOSEC) 20 mg capsuleIndications :Gastroesophageal reflux disease without esophagitis Take 2 capsules (40 mg total) by mouth daily 30 capsule 02/20/2024 5 predniSONE (DELTASONE) 5 mg tabletIndications: Centrilobular emphysema (HCC) One p.o. q.a.m. times 30 days 30 tablet 02/20/2024 4 documented in this encounter Progress Notes * Donte Campuzano MD - 02/20/2024 9:15 AM CST Images from the original note were not included. Progress Note Patient: Obi Gama ( - 1965) is a 58 y.o. female. Visit Date: 02/20/2024 History of Present Illness: The patient returns for follow-up of her right lower lobe nodules and the largest 1 was biopsied and revealed noncaseating granulomas. I performed a bronchoscopy with BAL and the AFB and fungal cultures were negative and the airway culture only grew normal upper respiratory alexys. 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 She has noticed more dyspnea on exertion but denies any infectious symptoms. She also has increased gastroesophageal reflux symptoms and has been out of her omeprazole as well. I discussed the results of her chest CT and I dictated the report below. She did bring a copy of the disc t hat she had performed at [facility]. Past Medical History: Past Medical History: Diagnosis Date Delayed emergence from general anesthesia Emphysema lung (HCC) Esophageal spasm takes tng for tx IBS (irritable bowel syndrome) Migraine no longer Mitral valve prolapse Mood disorder (HCC) MVP (mitral valve prolapse) takes metoprolol for tx PONV (postoperative nausea and vomiting) Pulmonary nodule Pulmonary sarcoidosis (HCC) Surgical History: Past Surgical History: Procedure Laterality Date BLADDER SUSPENSION BRONCHOSCOPY 07/2023 CHOLECYSTECTOMY HYSTERECTOMY LUNG BIOPSY 07/10/2023 Current Medications: Current Outpatient Medications Medication Sig Dispense Refill albuterol HFA (PROVENTIL HFA,VENTOLIN HFA,PROAIR HFA) 90 mcg/actuation inhaler Inhale 2 puffs every4 (four) hours as needed for wheezing 1 each 0 kufiyzpnby-jhlxwcqt-irvlcaxhmi (Breztri Aerosphere) 160-9-4.8 mcg/actuation inhaler INHALE 2 PUFFS BY MOUTH TWICE DAILY 10.7 g 4 cyanocobalamin (Vitamin B-12) 1,000 mcg/mL injection cyanocobalamin (vit B-12) 1,000 mcg/mL injection solution ADMINISTER 1 ML UNDER THE SKIN EVERY MONTH estradioL (ESTRACE) 0.5 mg tablet Take 1 tablet (0.5 mg total) by mouth daily 30 tablet 11 FLUoxetine (PROzac) 60 mg tablet Take 1 tablet (60 mg total) by mouth breaker boss 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 metoprolol XL (TOPROL-XL) 50 mg extended release tablet Take 1 tablet (50 mg total) by mouth daily nitroglycerin (NITROSTAT) 0.4 mg SL tablet For esophageal spasms only polyethylene glycol (MIRALAX) 17 gram/dose powder predniSONE (DELTASONE) 5 mg tablet Take 3 tabs qam 90 tablet 2 fluticasone propionate (FLONASE) 50 mcg/actuation nasal spray Administer 2 sprays into each nostrildaily (Patient not taking: Reported on 02/20/2024) 16 g 6 omeprazole (PriLOSEC) 20 mg capsule Take 2 capsules (40 mg total) by mouth daily 30 capsule 0 predniSONE (DELTASONE) 5 mg tablet One p.o. q.a.m. times 30 days 30 tablet 0 No current facility-administered medications for this visit. [...] sore throat and tinnitus. Respiratory: Positive for shortness of breath. Negative for cough and wheezing. Cardiovascular: Negative for chest pain, palpitations and leg swelling. Gastrointestinal: Negative for abdominal pain, diarrhea and nausea. GERD Genitourinary: Negative for hematuria. Musculoskeletal: Positive for arthralgias. Negative for back pain and myalgias. Skin: Negative for color change. Allergic/Immunologic: Negative for environmental allergies and food allergies. Neurological: Negative for dizziness and light-headedness. Physical Exam: Vitals: 02/20/24 0904 BP: 126/78 BP Location: Left arm Patient Position: Sitting Pulse: 84 Resp: 22 Temp: 36.6 ??C (97.8 ??F) TempSrc: Tympanic SpO2: 99% Weight: 45.8 kg (101 lb) Height: 160 cm (5' 3 ) Physical [...] place, and time. Data Reviewed Images: Chest CT without contrast 17 February 2024 This study was performed at [facility] and the report will be scanned into the media section. The impression reads right lower lobe pulmonary nodules, some of which are stable and some of whichare new, probably infection. Noncontrast low-dose chest CT is recommended in 3 months mild emphysema. Assessment and Plan: Diagnoses and all orders for this visit: Centrilobular emphysema (HCC) (Primary) Assessment & Plan: The patient never smoked and does have [...] prednisone to use 5 mg p.o. daily. Orders: - predniSONE (DELTASONE) 5 mg tablet; One p.o. q.a.m. times 30 days Nodule of right lung Assessment & Plan: The patient did have the largest right lower lobe nodule biopsied which revealed noncaseating granulomas. The AFB and fungal cultures were negative from the BAL and the aerobic culture only grew normal upper respiratory alexys. I will check Histoplasma antibodies and also repeat another chest CT in 3 months to evaluate the ???new?? nodules. I will review the current chest CT with our radiologists once the study has been loaded into the PACS system. Orders: - CT Chest WO Contrast; Future - Histoplasma antibodies, screen; Future Gastroesophageal reflux disease without esophagitis Assessment & Plan: She has been having increased reflux symptoms and I will give her a 1 month supply of Prilosec use 40 mg p.o. daily Orders: - omeprazole (PriLOSEC) 20 mg capsule; Take 2 capsules (40 mg total) by mouth daily Rendering Provider & Department: Donte Campuzano MD ANY SECRETARY documented in this encounter Miscellaneous Notes * Assessment & Plan Note - Donte Campuzano MD - 02/20/2024 9:44 AM COMPANY SECRETARY Associated Problem(s): Gastroesophageal reflux disease without esophagitis She has been having increased reflux symptoms and I will give her a 1 month supply of Prilosec use 40 mg p.o. daily ANY SECRETARY * Assessment & Plan Note - Donte Campuzano MD - 02/20/2024 9:44 AM COMPANY SECRETARY Associated Problem(s): Nodule of right lung The patient did have the largest right lower lobe nodule biopsied which revealed noncaseating granulomas. The AFB and fungal cultures were negative from the BAL and the aerobic culture only grew normal upper respiratory alexys. I will check Histoplasma antibodies and also repeat another chest CT in 3 months to evaluate the ???new?? nodules. I will review the current chest CT with our radiologists once the study has been loaded into the PACS system. ANY SECRETARY * Assessment & Plan Note - Donte Campuzano MD - 02/20/2024 9:42 AM COMPANY SECRETARY Associated Problem(s): Centrilobular emphysema (HCC) The patient never smoked and does have [...] prednisone to use 5 mg p.o. daily. ANY SECRETARY ANY SECRETARY documented in this encounter Plan of Treatment Scheduled Orders Name Type Priority Associated Diagnoses Orde r Schedule CT Chest WO Contrast Imaging Schedule Ro utine, Read Routine (OP Routine) Nodule of right lung Expected: 05/20/2024, Expires: 02/19/2025 Histoplasma antibodies, screen Lab Routine Nodule of right lung Expected: 02/20/2024, Expires: 02/19/2025 documented as of this encounter Visit Diagnoses Diagnosis Centrilobular emphysema (HCC)- Primary Nodule of right lung Other diseases of lung, not elsewhere classified Gastroesophageal reflux disease without esophagitis Esophageal reflux documented in this encounter Discontinued Medications Medication Sig Discontinue Reason Start Date End Da te omeprazole (PriLOSEC) 20 mg capsule TAKE 1 CAPSULE(20 MG) BY MOUTH DAILY 11/03/2023 02/20/2024 documented as of this encounter Care Teams Vault Maker Relationship Specialty Start Date End Date Bouchra Vickers MD [address] [facility] [address] [place] [address] PCP - General 01/18/19 Donte Campuzano MD [address] [facility] [address] [place] [address] Consulting Physician Pulmonary Disease 05/22/22 documented as of this encounter
--- OUTSIDE RECORDS SUMMARY | 2024-04-02 18:38 | XMS_ITS | Encounter Summary ---
Author Organization [facility] Healthcare Address [address] [place] [address] Care Team Providers Care Construction Secretary Name Role Phone Bouchra Vickers MD Primary Care Provider [phone] Donte Campuzano MD Unavailable [phone] Reason for Referral * MRI/CAT/PET Scan (Routine) - Canceled Specialty Diagnoses / Procedures Referred By Contdenice t Referred To Contact Diagnoses Nodule of right lung Procedures CT Chest WO Contrast Donte Campuzano MD [address] [place] [address] [address] [place] [id number] Phone: tel: fax: External Order Referral ID Status Reason Start Date Expiration Date V isits Requested Visits Authorized [id number] Canceled 10/22/2023 11/20/2024 1 1 Reason for Visit * Reason Comments Follow-up Encounter Details Date Type Department Care Team (Late st Contact Info) Description 10/22/2023 1:00 PM CDT Office Visit [facility] Pulmon[facility] [address] [facility] [address] [place] [phone] Donte Campuzano MD [address] [place] [address] [address] [place] [phone] Centrilobular emphysema (HCC) (Primary Dx); Nodule of [...] on file 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 Gender Identity Not on file Sexual Orientation Not on file documented as of this encounter Last Filed Vital Signs Vital Sign Reading Time Taken Comments Blood Pressure 119/48 10/22/2023 12:52 PM CDT Pulse 47 10/22/2023 12:52 PM CDT Temperature - - Respiratory Rate 18 10/22/2023 12:52 PM CDT Oxygen Saturation 97% 10/22/2023 12:52 PM CDT Inhaled Oxygen Concentration - - Weight 47.6 kg (105 lb) 10/22/2023 12:52 PM CDT Height 160 cm (5' 3 ) 10/22/2023 12:52 PM CDT Body Mass Index 18.6 10/22/2023 12:52 PM CDT documented in this encounter Ordered Prescriptions Prescription Sig Dispense Quantity Refills Last Filled Start Date End Date predniSONE (DELTASONE) 5 mg tablet Take 3 tabs qam 90 tablet 2 10/22/2023 documented in this encounter Progress Notes * Donte Campuzano MD - 10/22/2023 1:00 PM CDT Images from the original note were not included. Progress Note Patient: Obi Gama ( - 1965) is a 58 y.o. female. Visit Date: 10/22/2023 History of Present Illness: The patient is a pleasant 58-year-old female who returns for follow-up after starting on [id number] mg daily and her chest CT performed at [facility] on 17 September 2023 is in the media sectionand the right lower lobe nodule has decreased in size and was 10 mm. She has lost 3 lb since she was last here but had a recent gastroenteritis. The prednisone had not been bothering her stomach withuse of Prilosec. Her breathing has been comfortable. Past Medical History: Past Medical History: Diagnosis [...] as needed for wheezing 1 each 0 xxnigdvknu-pvefvrax-iwojknolnn (Breztri Aerosphere) 160-9-4.8 mcg/actuation HFA aerosol inhaler Inhale 2 puffs 2 (two) times a day 10.7 g 11 cyanocobalamin (Vitamin B-12) 1,000 mcg/mL injection cyanocobalamin (vit B-12) 1,000 mcg/mL injection solution ADMINISTER 1 ML UNDER THE SKIN EVERY MONTH estradioL (ESTRACE) 0.5 mg tablet Take 1 tablet (0.5 mg total) by mouth daily 30 tablet 11 metoprolol XL (TOPROL-XL) 50 mg extended release tablet Take 1 tablet (50 mg total) by mouth daily nitroglycerin (NITROSTAT) 0.4 mg SL tablet For esophageal spasms only omeprazole (PriLOSEC) 20 mg capsule Take 1 capsule (20 mg total) by mouth daily 30 capsule 11 FLUoxetine (PROzac) 60 mg tablet Take 1 tablet (60 mg total) by mouth seater grinder 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 (Patient not taking: Reported on 10/22/2023) fluticasone propionate (FLONASE) 50 mcg/actuation nasal spray Administer 2 sprays into each nostrildaily (Patient not taking: Reported on 10/22/2023) 16 g 6 polyethylene glycol (MIRALAX) 17 gram/dose powder (Patient not taking: Reported on 10/22/2023) No current facility-administered medications for this visit. [...] sinus pain, sore throat and tinnitus. Respiratory: Negative for cough, shortness of breath and wheezing. Cardiovascular: Negative for chest pain, palpitations and leg swelling. Gastrointestinal: Negative for abdominal pain, diarrhea and nausea. GERD Genitourinary: Negative for hematuria. Musculoskeletal: Positive for arthralgias. Negative for back pain and myalgias. Skin: Negative for color change. Allergic/Immunologic: Negative for environmental allergies and food allergies. Neurological: Negative for dizziness and light-headedness. Physical Exam: Vitals: 10/22/23 1252 BP: 119/48 BP Location: Right arm Patient Position: Sitting Pulse: (!) 47 Resp: 18 SpO2: 97% Weight: 47.6 kg (105 lb) Height: 160 cm (5' 3 ) [...] and time. Data Reviewed Images: Chest CT 17 September 2023 at [facility] Assessment and Plan: Diagnoses and all orders for this visit: Centrilobular emphysema (HCC) (Primary) Assessment & Plan: Her breathing has been comfortable with breztri 2 puffs b.i.d. and p.r.n. 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 I will plan to decrease the prednisone to 15 mg p.o. daily and she will follow up here in 2 months with another chest CT prior to the appointment. The CT will be performed at [facility]. Orders: - CT Chest WO Contrast; Future Gastroesophageal reflux disease without esophagitis Assessment & Plan: The patient continues on Prilosec and her reflux symptoms are under control. 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 I will plan to decrease the prednisone to 15 mg p.o. daily and she will follow up here in 2 months with another chest CT prior to the appointment. The CT will be performed at [facility]. * Assessment & Plan Note - Donte Campuzano MD - 10/22/2023 1:10 PM CDT Associated Problem(s): Centrilobular emphysema (HCC) Her breathing has been comfortable with breztri 2 puffs b.i.d. and p.r.n. albuterol * Assessment & Plan Note - Donte Campuzano MD - 10/22/2023 1:10 PM CDT Associated Problem(s): Gastroesophageal reflux disease without esophagitis The patient continues on Prilosec and her reflux symptoms are under control. * Addendum Note - Margaret Cutler MA - 10/22/2023 1:00 PM CDTAddended by: MARGARET CUTLER on: 10/22/2023 01:21 PM Modules accepted: Orders documented in this encounter Plan of Treatment Scheduled Orders Name Type Priority Associated Diagnoses Orde r Schedule CT Chest WO Contrast Imaging Schedule Routine, Read Routine (OP Routine) Nodule of right lung Expected: 12/19/2023, Expires: 10/21/2024 documented as of this encounter Visit Diagnoses Diagnosis Centrilobular emphysema (HCC)- Primary Nodule of right lung Other diseases of lung, not elsewhere classified Gastroesophageal reflux disease without esophagitis Esophageal reflux documented in this encounter Care Teams Construction Secretary Relationship Specialty Start Date End Date Bouchra Vickers MD [address] [facility] [address] [place] [address] PCP - General 01/18/19 Donte Campuzano MD [address] [facility] [address] [place] [address] Consulting Physician Pulmonary Disease 05/22/22 documented as of this encounter
--- OUTSIDE RECORDS SUMMARY | 2024-04-02 18:38 | XMS_ITS | Encounter Summary ---
Author Organization [facility] Healthcare Address [address] [place] [address] Care Team Providers Care Games Dealer Name Role Phone Bouchra Vickers MD Primary Care Provider [phone] Sultan Elvin Mccartney MD Unavailable [phone] Donte Campuzano MD Unavailable [phone] Encounter Details Date Type Department Care Team (Late st Contact Info) Description 07/11/2023 Telephone [facility] [address] [place] [address] Emeli Schuler RN Social History Tobacco Use Types Packs/Day Years Used Date Smoking Tobacco: Never Personal Safety Answer Date Recorded Getting School Help Needed Not on file 05/22 Comments No Sex and Gender Information Value Date Recorded Sex Assigned at Not on file 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 Patient states she has is doing well and is just a little bit sore at biopsy site which resolved with a dose of Motrin. When asked if she is short of breath, she states, no more than usual. documented in this encounter Plan of Treatment Not on file documented as of this encounter Visit Diagnoses Not on filedocumented in this encounter Care Teams Games Dealer Relationship Specialty Start Date End Date Bouchra Vickers MD [address] [address] PCP - General 01/18/19 Sultan Elvin Mccartney MD [address] [facility] [address] [address] Consulting Physician Cardiovascular Disease 05/22/22 Donte Campuzano MD [address] [facility] [address] [place] [address] Consulting Physician Pulmonary Disease 05/22/22 documented as of this encounter
--- OUTSIDE RECORDS SUMMARY | 2024-04-02 18:38 | XMS_ITS | Encounter Summary ---
Author Organization [facility] Healthcare Address [address] [place] [address] Care Team Providers Care Snow Maker Name Role Phone Bouchra Vickers MD Primary Care Provider [phone] Donte Campuzano MD Unavailable [phone] Reason for Visit * Auth/Cert (Routine) Specialty Diagnoses / Procedures Referred By Contdenice t Referred To Contact Diagnoses Nodule of right lung Nodule of right lung [R91.1] Procedures TN BRNCHSC W/BRNCL ALVEOLAR LAVAGE TN BRNCHSC BRUSHING/PROTECTED BRUSHINGS TN BRONCHOSCOPY W/TRANSBRONCHIAL LUNG BX 1 LOBE BRONCHOSCOPY, BRUSHINGS, BIOPSY, LAVAGE Referral ID Status Reason Start Date Expiration Date Visits Re quested Visits Authorized [id number] 1 1 Encounter Details Date Type Department Care Team (Latest Contact Info) Description 08/01/2023 5:35 AM CDT - 08/01/2023 10:59 AM CDT Hospital Encounter [address] [address] Donte Campuzano MD [address] [address] Nodule of right lung Discharge Disposition: Discharge to home or self care Social History Tobacco Use Types Packs/Day Years [...] on file 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 * Flexible Bronchoscopy (Discharge Care) (Maltese) documented in this encounter Medications at Time [...] by mouth daily 30 tablet 11 06/17/2023 FLUoxetine (PROzac) 60 mg tablet Take 1 tablet (60 mg total) by mouth group sales representative 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 fluticasone propionate (FLONASE) 50 mcg/actuation [...] signed by Carlos KEY T: Report ID: [id number] Reading Location: [id number] XR Chest 1 View Result Date: 07/10/2023 [...] signed by Carlos KEY T: Report ID: [id number] Reading Location: [id number] CT Lung Needle Biopsy Right Result Date: [...] Carlos Nam M.D. KR T: Report ID: [id number] Reading Location: [id number] Assessment 1.) Right lower lobe nodule 2.) [...] signed by Carlos KEY T: Report ID: [id number] Reading Location: [id number] XR Chest 1 View Result Date: 07/10/2023 [...] signed by Carlos KEY T: Report ID: [id number] Reading Location: [id number] CT Lung Needle Biopsy Right Result Date: [...] Carlos Nam M.D. 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 [address] [address] Surgery Reminder Checklist: Please arrive to [facility]'s Outpatient Surgery Department for scheduled surgeryon [...] take TYLENOL (ACETAMINOPHEN) as needed for pain. [place] your teeth morning of procedure. Use mouth [...] questions/concerns, please call Pre Anesthesia Testing at [phone]. Morning of surgery question/concerns, please call Outpatient Surgery at [phone]. Thank You Digna RAHMAN * Pre-Procedure Instructions - Digna Gil RN - 07/22/2023 10:41 AM CDT Images from the original note were not included. The [facility]'s Pre Anesthesia Testing department is trying [...] - 30 minutes. Please call us at [phone]. If we don't answer please leave a [...] D: ??08/01/2023 9:53 AM T: Report ID: [id number] Reading Location: ??[id number] Procedure Note Chris Oliva MD - 08/01/2023 [...] 08/01/2023 9:53 AM - Electronically signed by Chris SINGH T: Report ID: [id number] Reading Location: [place] [address] us Donte Campuzano MD IMG XR PROCEDURES Final R esult * BRONCHOALVEOLAR LAVAGE (08/01/2023 7:52 AM CDT) Narrative Donte Campuzano MD - 08/01/2023 7:52 AM CDT Donte Campuzano MD ? 08/01/2023 ??7:58 AM Bronchoalveloar Lavage Date/Time: 08/01/2023 7:52 AM Performed by: Donte Campuzano MD Authorized by: Donte Campuzano MD ?? us Donte Campuzano MD IN CLINIC/BEDSIDE ORDERAB LES Final Result * Aerobic culture and gram stain Bronchoalveolar lavage Lobe, right lower (08/01/2023 7:40 AM CDT) Direct Specimen Exam Stain: Cytospin Gram stain shows: No polymorphonuclear leukocytes seen. No squamous epithelial cells seen. No organisms seen. Comment:Testing performed by : [facility], [address] [place]., [address] Report Final Report: Growth indicates upper respiratory jerome. KEYSHA Comment:Testing performed by : [facility], [address] [place]., [address] Organism GROWTH INDICATES UPPER RESPIRATORY JEROME. KEYSHA Bronchoalveolar lavage (Lobe, right lower) 08/01/2023 7:40 AM CDT 08/01/2023 12:12 PM CDT Narrative KEYSHA - 08/09/2023 2:09 PM CDT Right lower lobe bronchial alveolar lavage Testing performed by [facility] ([phone]) Specimens submitted from normally sterile body sites [...] MICROBIOLOGY - GENERA L ORDERABLES Final Result [facility] [address] [facility] Department [place] [address] * Mycology (fungal) culture Bronchoalveolar lavage Lobe, right lower (08/01/2023 7:40 AM CDT) Report Final Report: No growth of fungus Comment:Testing performed by : [facility], [address] [place] [address], [place]., [address] Bronchoalveolar lavage (Lobe, right lower) 08/01/2023 7:40 AM CDT 08/01/2023 12:12 PM CDT Narrative KEYSHA - 08/29/2023 7:55 AM CDT Right lower lobe bronchial alveolar lavage Testing performed by [facility] ([phone]). Donte Campuzano MD LAB MICROBIOLOGY - GENERA L ORDERABLES Final Result KEYSHA [address] [place] [address] * Mycobacteriology (AFB) culture and acid-fast stain Bronchoalveolar lavage Lobe, right lower (08/01/2023 7:40 AM CDT) Direct Specimen Exam Stain: No Acid-fast bacilli seen Comment:Testing performed by : [facility], [address] [place]., [address] Report Final Report: No growth of acid-fast bacilli KEYSHA Comment:Testing performed by : [facility], [address] [place]., [address] Bronchoalveolar lavage (Lobe, right lower) 08/01/2023 7:40 AM CDT 08/01/2023 12:12 PM CDT Narrative KEYSHA - 09/29/2023 11:01 AM CDT Right lower lobe bronchial alveolar lavage Testing performed by [facility] ([phone]). Donte Campuzano MD LAB MICROBIOLOGY - GENERA L ORDERABLES Final Result JUDY[address] [place] [address] * Cytology (08/01/2023 7:39 AM CDT) Fluid (Bronch Lavage (Cytology)) 08/01/2023 7:39 AM CDT Narrative PATHOLOGY [facility] - 08/04/2023 5:40 PM CDT EPIC results best viewed via link to PDF [facility] [place] [address] Note to Patients: This report may contain [...] CYTOPATHOLOGY REPORT FINAL Patient Name: ?? OBI GAMA Gender: ??F : ??1965 (Age: 58) Address: ??[address] [place], [place] ??[address] Hospital #: ??[id number] Taken:08/01/2023 Received:08/01/2023 Reported: 08/04/2023 Patient Type: [facility] SDS OUTPATIENT ?? Service: Surgery Location: Physician(s): [...] Out By ??Latisha Thomas M.D. 08/04/2023 17:40:01 RICHARD Antonio (ASCP) Gross Description A. ??Right lower lobe bronchial alveolar lavage: ??10 ml cloudy fluid - 1 Pap stained ThinPrep. (ep) Clinical Diagnosis and History The patient is a 58 year old woman with nodule of right lung. Microscopic slide review and interpretation for this case was performed at [facility], Department of Surgical Pathology, [address] [facility] [address], [id number], ??[place], [place] ??[address] ?? CLIA # [id number] REPORT IMAGES AND SCANNED DOCUMENTS, IF INCLUDED, ONLY VIEWABLE IN PDF VERSION OF REPORT The performance characteristics of some immunohistochemical stains, in-situ hybridization and fluorescence in-situ hybridization tests and immunophenotyping by flow cytometry cited in this report (if any) were determined by the Surgical Pathology and Flow Cytometry Departments at [facility] as part of an ongoing quality assurance monitor body program and in compliance with federally mandated [...] Surgical Pathology and Flow Cytometry Departments of [facility]. ??It has not been cleared or approved by the U. S. Food and Drug Administration. Donte Campuzano MD LAB CYTOLOGY ORDERABLES F inal Result PATHOLOGY [facility] * eGFR (08/01/2023 6:15 AM CDT) eGFR [...] 6:15 AM CDT 08/01/2023 6:19 AM CDT Donte Campuzano MD LAB BLOOD ORDERABLES Kathy l Result [facility] [address] [facility] Department [place] [address] * Differential, auto (08/01/2023 6:15 AM CDT) Pathologist [facility] Neutrophil abs 2.0 1.5 - 6.5 K/cumm Imm gran abs 0.0 0.0 - 0.1 K/cumm [facility] Lymphocyte abs 1.5 0.8 - 3.3 K/cumm [facility] Monocyte abs 0.4 0.2 - 0.8 K/cumm [facility] Eosinophil abs 0.2 0.0 - 0.5 K/cumm [facility] Basophil abs 0.1 0.0 - 0.1 K/cumm [facility] Neutrophil pct 47.8 % [facility] Comment: Interpretive Data Percent cell count reference ranges are not reported, since discordance with absolute values may lead to misinterpretation of CBC data. Current Interpretive Data was last revised on 2017. Imm gran pct 0.2 % [facility] Comment: Interpretive Data Percent cell count reference ranges are not reported, since discordance with absolute values may lead to misinterpretation of CBC data. Current Interpretive Data was last revised on 2017. Lymphocyte pct 35.3 % [facility] Comment: Interpretive Data Percent cell count reference ranges are not reported, since discordance with absolute values may lead to misinterpretation of CBC data. Current Interpretive Data was last revised on 2017. Monocyte pct 8.9 % [facility] Comment: Interpretive Data Percent cell count reference ranges are not reported, since discordance with absolute values may lead to misinterpretation of CBC data. Current Interpretive Data was last revised on 2017. Eosinophil pct 5.6 % [facility] Comment: Interpretive Data Percent cell count reference ranges are not reported, since discordance with absolute values may lead to misinterpretation of CBC data. Current Interpretive Data was last revised on 2017. Basophil pct 2.2 % [facility] Comment: Interpretive Data Percent cell count reference ranges are not reported, since discordance with absolute values may lead to misinterpretation of CBC data. Current Interpretive Data was last revised on 2017. Blood 08/01/2023 6:15 AM CDT 08/01/2023 6:19 AM CDT us Donte Campuzano MD LAB BLOOD ORDERABLES Kathy rivera Result [facility] [address] [facility] Department [place] [address] * CBC with auto differential (08/01/2023 6:15 AM CDT) Pathologist [facility] WBC 4.1 3.8 - 9.9 K/cumm Hgb 12.1 11.9 - 15.5 g/dL [facility] Hct 35.9 35.6 - 45.5 % [facility] Plt 200 150 - 400 K/cumm [facility] MPV 9.7 9.1 - 12.3 fL [facility] RBC 4.11 3.90 - 5.20 M/cumm [facility] MCV 87.3 81.3 - 96.4 fL [facility] MCH 29.4 27.1 - 33.3 pg [facility] MCHC 33.7 32.3 - 35.7 g/dL [facility] RDW CV 12.7 11.1 - 14.9 % [facility] RDW SD 40.5 35.7 - 48.1 fL [facility] NRBC abs 0.00 0.00 - 0.01 K/cumm [facility] Blood 08/01/2023 6:15 AM CDT 08/01/2023 6:19 AM CDT Donte Campuzano MD LAB BLOOD ORDERABLES Kathy l Result [facility] [address] [facility] Department [place] [address] * Basic metabolic panel (08/01/2023 6:15 AM CDT) Sodium 143 135 - 145 mmol/L Potassium, pl 3.9 3.3 - 4.9 mmol/L [facility] Chloride 107 97 - 110 mmol/L [facility] CO2 26 22 - 32 mmol/L [facility] Anion gap 10 2 - 15 mmol/L [facility] BUN 10 6 - 25 mg/dL [facility] Creatinine 0.74 0.60 - 1.10 mg/dL [facility] Glucose 98 70 - 199 mg/dL [facility] Comment: Interpretive Data Fasting glucose >/= 126 [...] classification and Diagnosis of Diabetes Diabetes Care 2021; 46: S19-S40. Current interpretive data was last revised 2022. Calcium 9.0 8.5 - 10.3 mg/dL [facility] Blood 08/01/2023 6:15 AM CDT 08/01/2023 6:19 AM CDT Donte Campuzano MD LAB BLOOD ORDERABLES Kathy l Result Performing Organization Address [facility] Co de Phone Number KEYSHA [address] [place] [address] * Protime-INR (08/01/2023 6:15 AM CDT) PT 12.9 12.0 - 14.6 sec INR 1.0 0.9 - 1.2 KEYSHA Comment: Ref Range High Interpretive data Oral anticoagulant therapeutic ranges: Venous thromboembolism prophylaxis or treatment: 2.0-3.0 CARDIOLOGY Standard range: 2.0-3.0 High-intensity range: 2.5-3.5 Refer to indication-specific guidelines for appropriate target ranges for prosthetic heart valve replacement. Current interpretive data was last revised on 2019. Blood 08/01/2023 6:15 AM CDT 08/01/2023 6:19 AM CDT Donte Campuzano MD LAB BLOOD ORDERABLES Kathy rivera Result Performing Organization Address [facility] Co de Phone Number JUDY[address] [address] * aPTT (08/01/2023 6:15 AM CDT) [facility] aPTT 27 22 - 37 sec Comment: Interpretive data aPTT test has not been evaluated for monitoring heparin therapy. The anti-Xa is the preferred test. Current interpretive data was last revised on 2019. Blood 08/01/2023 6:15 AM CDT 08/01/2023 6:19 AM CDT Donte Campuzano MD LAB BLOOD ORDERABLES Kathy l Result Performing Organization Address [facility] Co de Phone Number [place] [id number] [facility] [place] [address] * ECG 12 lead (08/01/2023 6:09 AM CDT) [facility] Ventricular Rate EKG/Min 70 BPM [facility] Atrial Rate 70 BPM [facility] TN-Interval (MSEC) 186 ms [facility] QRS-Interval (MSEC) 76 ms [facility] QT-Interval (MSEC) 404 ms [facility] QTc 436 ms [facility] P [place] 77 degrees [facility] R [place] 60 degrees [facility] T [place] 66 degrees [facility] Diagnosis Normal sinus rhythm Normal ECG When compared with ECG of 18-MAY-2022 21:30, Premature ventricular complexes are no longer Present Confirmed by KATHY HARRIS M.D. ([id number]) on 08/04/2023 10:07:00 AM [facility] 08/01/2023 6:09 AM CDT 08/04/2023 10:07 AM CDT us Jimenez Draper MD ECG ORDERABLES Final Result [facility] documented in this encounter Visit Diagnoses [...] (SUBLIMAZE) preserv ative free injection 50 mcg 1 08/01/2023 hydrALAZINE (APRESOLINE) injection 5 mg 1 0 08/01/2023 HYDROmorphone (DILAUDID) injection 0.2 mg 1 08/01/2023 HYDROmorphone (DILAUDID) injection 0.4 mg 1 08/01/2023 labetaloL (NORMODYNE,TRANDAT E) injection 5 mg 1 08/01/2023 Lactated Ringer's (LR) infusion 1 meperidine (DEMEROL) preserv ative free injection 25 mg 1 08/01/2023 metoclopramide (REGLAN) 5 mg /mL injection 10 mg 1 08/01/2023 naloxone (NARCAN) 0.4 mg/mL injection 0.04-0.4 mg 1 08/01/2023 sodium chloride 0.9% flush 0.5-20 mL 2 05/0 05/2023 Discharge Count Last Ordered Date First Orde red Date DISCHARGE PATIENT 1 08/01/2023 documented in this encounter Care Teams Snow Maker Relationship Specialty Start Date End Date Bouchra Vickers MD [address] [address] PCP - General 01/18/19 Donte Campuzano MD [address] [facility] [address] [id number] Consulting Physician Pulmonary Disease 05/22/22 documented as of this encounter
--- OUTSIDE RECORDS SUMMARY | 2024-04-02 18:38 | XMS_ITS | Encounter Summary ---
Author Organization [facility] Healthcare Address [address] [place] [address] Care Team Providers Care Chemical Plant Worker Name Role Phone Bouchra Vickers MD Primary Care Provider [phone] Sultan Elvin Mccartney MD Unavailable [phone] Donte Campuzano MD Unavailable [phone] Reason for Visit * Reason Comments Follow-up Encounter Details Date Type Department Care Team (Late st Contact Info) Description 07/16/2023 9:30 AM CDT Office Visit [facility] Medical Group Pulmonology [address] [place] [address] [place] [phone] Donte Campuzano MD [address] [place] [id number] Centrilobular emphysema (HCC) (Primary Dx); Pulmonary nodule; Gastroesophageal reflux disease without esophagitis Social History Tobacco Use Types Packs/Day Years Used Date Smoking Tobacco: Never Personal Safety Answer Date Recorded Getting School Help Needed Not on file 05/22 Comments No Sex and Gender Information Value Date Recorded Sex Assigned at Not on file 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 Gender Identity Not on file Sexual Orientation Not on file documented as of this encounter Last Filed Vital Signs Vital Sign Reading Time Taken Comments Blood Pressure 111/65 07/16/2023 9:30 AM CDT Pulse 75 07/16/2023 9:30 AM CDT Temperature 36.7 ??C (98.1 ??F) 07/16/2023 9:30 AM CD T Respiratory Rate 18 07/16/2023 9:30 AM CDT Oxygen Saturation 97% 07/16/2023 9:30 AM CDT Inhaled Oxygen Concentration - - Weight 50.3 kg (111 lb) 07/16/2023 9:30 AM CDT Height 160 cm (5' 3 ) 07/16/2023 9:30 AM CDT Body Mass Index 19.66 07/16/2023 9:30 AM CDT documented in this encounter Ordered Prescriptions Prescription Sig Dispense Quantity Refills Last Filled Start Date End Date fluticasone propionate (FLONASE) 50 mcg/actuation nasal sprayIndications:C entrilobular emphysema (HCC) Administer 2 sprays into each nostril daily 16 g 6 07/16/2023 documented in this encounter Progress Notes * Donte Campuzano MD - 07/16/2023 9:30 AM CDT Images from the original note were not included. Progress Note Patient: Obi Gama ( - 1965) is a 58 y.o. female. Visit Date: 07/16/2023 History of Present Illness: The patient is a pleasant 58-year-old female with COPD, right lower lobe nodule and GERD that returns for follow-up after a CT directed biopsy of the right lower lobe nodule which occurred on 10 July 2023. She did not have a pneumothorax or other complications related to the biopsy. She denies anyfevers or chills and she does have a predominantly chronic dry cough but will occasionally bring upsome white or yellow phlegm. She denies any hemoptysis after the biopsy procedure. The preliminary report is noncaseating granulomatous inflammation and the special stains are pending at this time. Idiscussed these results with the patient. Past Medical History: Past Medical History: Diagnosis Date Emphysema lung (HCC) Esophageal spasm IBS (irritable bowel syndrome) Migraine no longer Mitral valve prolapse Mood disorder (HCC) Surgical History: Past Surgical History: Procedure Laterality Date BLADDER SUSPENSION CHOLECYSTECTOMY HYSTERECTOMY LUNG BIOPSY 07/10/2023 Current Medications: Current Outpatient Medications Medication Sig Dispense Refill albuterol HFA (PROVENTIL HFA,VENTOLIN HFA,PROAIR HFA) 90 mcg/actuation inhaler Inhale 2 puffs every4 (four) hours as needed for wheezing 1 each 0 kvzqxjwwqx-csehcwgi-alxnkfjkmi (Breztri Aerosphere) 160-9-4.8 mcg/actuation HFA aerosol inhaler Inhale 2 puffs 2 (two) times a day 10.7 g 11 cyanocobalamin (Vitamin B-12) 1,000 mcg/mL injection cyanocobalamin (vit B-12) 1,000 mcg/mL injection solution ADMINISTER 1 ML UNDER THE SKIN EVERY MONTH estradioL (ESTRACE) 0.5 mg tablet Take 1 tablet (0.5 mg total) by mouth daily 30 tablet 11 FLUoxetine (PROzac) 60 mg tablet fluoxetine 60 mg tablet metoprolol XL (TOPROL-XL) 50 mg extended release tablet Rx: Metoprolol Succinate nitroglycerin (NITROSTAT) 0.4 mg SL tablet nitroglycerin 0.4 mg sublingual tablet omeprazole (PriLOSEC) 20 mg capsule Take 1 capsule (20 mg total) by mouth daily 30 capsule 11 polyethylene glycol (MIRALAX) 17 gram/dose powder Miralax 17 gram/dose oral powder Dissolve 1 capful(s) in 8 ounces of water and drink daily fluticasone propionate (FLONASE) 50 mcg/actuation nasal spray Administer 2 sprays into each nostrildaily 16 g 6 No current facility-administered medications for this visit. Allergies: Allergies Allergen Reactions Adhesive Rash red rash, burning Sumatriptan Anaphylaxis Reaction: ANAPHYLAXIS Zolmitriptan Other (See comments) Reaction: Throat Swelling, Family History: Family History Problem Relation Age of Onset Hypertension Mother Family history of hypertension - (Added by TW Conv) Diabetes Mother Family history of diabetes mellitus - (Added by TW Conv) Breast cancer Neg Hx Ovarian cancer Neg Hx Social History: Social History Tobacco Use Smoking status: Never Smokeless tobacco: None Substance and Sexual Activity Drug use: Yes Types: Marijuana Comment: gumnikkis Sexual activity: Yes Partners: Male control/protection: Hysterectomy Alcohol Use: Not on file Review of Systems: Review of Systems Constitutional: Negative for appetite change, fever and unexpected weight change. HENT: Negative for rhinorrhea, sinus pressure, sinus pain, sore throat and tinnitus. Respiratory: Positive for cough and shortness of breath. Negative for wheezing. Cardiovascular: Negative for chest pain, palpitations and leg swelling. H/O MVP Gastrointestinal: Negative for abdominal pain, diarrhea and nausea. Genitourinary: Negative for hematuria. Musculoskeletal: Positive for back pain. Negative for arthralgias and myalgias. Skin: Negative for color change. Allergic/Immunologic: Negative for environmental allergies and food allergies. Neurological: Negative for dizziness and light-headedness. Physical Exam: Vitals: 07/16/23 0930 BP: 111/65 BP Location: Right arm Patient Position: Sitting Pulse: 75 Resp: 18 Temp: 36.7 ??C (98.1 ??F) SpO2: 97% Weight: 50.3 kg (111 lb) Height: 160 cm (5' 3 ) [...] person, place, and time. Data Reviewed Images: PET /chest CT 26 June 2023 Assessment and Plan: Diagnoses and all orders for this visit: Centrilobular emphysema (HCC) (Primary) Assessment & Plan: The PFT findings are consistent with stage III COPD. She continues on breztri 2 puffs b.i.d., Mucinex 600 mg b.i.d. and p.r.n. albuterol. She also has a predominantly dry cough and I will give her a trial of Flonase 2 puffs in each nostril at bedtime. Orders: - fluticasone propionate (FLONASE) 50 mcg/actuation nasal spray; Administer 2 sprays into each nostril daily Pulmonary nodule Assessment & Plan: The right lower lobe pulmonary nodules biopsy last week and is revealing noncaseating granulomas. The special stains are pending. I will consider a bronchoscopy to assess for infectious organisms if the stains are negative. I will also check a QuantiFERON gold. She will follow up here in 1 month. Addendum 17 July 2023 9221 [employer] and fungal stains returned negative [...] her questions. She is agreeable to proceed. Orders: - TB test, quantiferon gold; Future Gastroesophageal reflux disease without esophagitis Assessment & Plan: She continues on Prilosec for reflux. Rendering Provider & Department: Donte Campuzano MD documented in this encounter Miscellaneous Notes * Assessment & Plan Note - Donte Campuzano MD - 07/16/2023 9:52 AM CDT Associated Problem(s): Centrilobular emphysema (HCC) The PFT findings are consistent with stage III COPD. She continues on breztri 2 puffs b.i.d., Mucinex 600 mg b.i.d. and p.r.n. albuterol. She also has a predominantly dry cough and I will give her a trial of Flonase 2 puffs in each nostril at bedtime. * Assessment & Plan Note - Donte Campuzano MD - 07/16/2023 9:52 AM CDT Associated Problem(s): Gastroesophageal reflux disease without esophagitis She continues on Prilosec for reflux. * Assessment & Plan Note - Donte Campuzano MD - 07/16/2023 9:52 AM CDT Associated Problem(s): Pulmonary nodule The right lower lobe pulmonary nodules biopsy [...] her questions. She is agreeable to proceed. documented in this encounter Plan of Treatment Not on file documented as of this encounter Results * TB test, quantiferon gold (07/16/2023 10:14 AM CDT) [facility] Quantiferon TB Gold Negative Negative [facility] Comment: No interferon-gamma response to M. tuberculosis antigens was detected. Latent infection with M. tuberculosis is unlikely. A single negative result does not exclude infection with M. tuberculosis. In patients at high risk for M.tuberculosis infection, a second test should be considered in accordance with the 2017 ATS/IDSA/CDC Clinical Practice Guidelines for Diagnosis of Tuberculosis in Adults and Children [Farhaninsohn DEREK et. al. Clin. Infect. Dis. 2017;64(2):111-115]. The reference range for the 'TB1 Ag minus Nil Result' and 'TB2 Ag minus Nil Result' is an Interferon-gamma level <0.35 IU/mL. TB-Nil 0.03 IUnits/mL CERNER MH TB2-Nil 0.01 IUnits/mL [facility] MH Mitogen-Nil 9.99 IUnits/mL [facility] NIL 0.01 IUnits/mL [facility] MH Comment: Test Performed by: [facility] [address] [place] [address] Hide Handler: Praveen Jiménez M.D. Ph.D.; CLIA# [id number] Blood 07/16/2023 10:1 4 AM CDT 07/16/2023 10:39 AM CDT us Donte Campuzano MD LAB BLOOD ORDERABLES Kathy l Result KEYSHA [address] [facility] Department [place] [address] [place] [facility] documented in this encounter Visit Diagnoses Diagnosis Centrilobular emphysema (HCC)- Primary Pulmonary nodule Other diseases of lung, not elsewhere classified Gastroesophageal reflux disease without esophagitis Esophageal reflux documented in this encounter Care Teams Chemical Plant Worker Relationship Specialty Start Date End Date Bouchra Vickers MD [address] [address] PCP - General 01/18/19 Sultan Elvin Mccartney MD [address] [facility] [address] [address] Consulting Physician Cardiovascular Disease 05/22/22 Donte Campuzano MD [address] [place] [address] Consulting Physician Pulmonary Disease 05/22/22 documented as of this encounter
--- OUTSIDE RECORDS SUMMARY | 2024-04-02 18:38 | XMS_ITS | Encounter Summary ---
Author Organization [facility] Healthcare Address [address] [place] [address] Care Team Providers Care [employer] Advisor Name Role Phone Bouchra Vickers MD Primary Care Provider [phone] Donte Campuzano MD Unavailable [phone] Encounter Details Date Type Department Care Team (Latest Contact Info) Description 02/17/2024 11:45 AM RUBBER MIXER - 02/17/2024 11:59 PM RUBBER MIXER Hospital Encounter [facility] [employer] [address] [facility] [place] [address] Discharge Disposition: Discharge to home or self [...] on file Legal Sex Female 10:19 AM RUBBER MIXER Gender Identity Not on file Sexual Orientation Not on file documented as of this encounter Medications at Time of Discharge albuterol HFA (PROVENTIL HFA,VENTOLIN HFA,PROAIR HFA) 90 mcg/actuation inhaler Inhale 2 puffs every 4 (four) hours as needed for wheezing 1 each 05/22/2022 budesonide-glyc opyr-formoterol (Breztri Aerosphere) 160-9-4.8 mcg/actuation inhaler INHALE 2 PUFFS BY MOUTH TWICE DAILY 10.7 g 4 11/24/2023 cyanocobalamin (Vitamin B-12) 1,000 mcg/mL injection cyanocobalamin (vit B-12) 1,000 mcg/mL injection solution ADMINISTER 1 ML UNDER THE SKIN EVERY MONTH estradioL (ESTRACE) 0.5 mg tabletIndicatio ns:Menopausal symptoms Take 1 tablet (0.5 mg total) by mouth daily 30 tablet 11 06/17/2023 FLUoxetine (PROzac) 60 mg tablet Take 1 tablet (60 mg total) by mouth 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 and rail operator 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 metoprolol XL (TOPROL-XL) 50 mg extended release tablet Take 1 tablet (50 mg total) by mouth daily nitroglycerin (NITROSTAT) 0.4 mg SL tablet For esophageal spasms only polyethylene glycol (MIRALAX) 17 gram/dose powder 04/24/2012 predniSONE (DELTASONE) 5 mg tablet Take 3 tabs qam 90 tablet 2 10/22/2023 omeprazole (PriLOSEC) 20 mg capsule TAKE 1 CAPSULE(20 MG) BY MOUTH DAILY 30 capsule 5 11/03/2023 4 documented as of this encounter Discharge Disposition Disposition Code Departure Means Destination Discharge to home or self care documented in this encounter Plan of Treatment Not on file documented as of this encounter Procedures Procedure Name Priority Date/Time Associated Diagnosis Comments CT BODY OUTSIDE REFERENCE Routine 02/17/2024 11:45 AM RUBBER MIXER documented in this encounter Results * CT Body Outside Reference (02/17/2024 11:45 AM RUBBER MIXER) Narrative ZACH_MHE - 02/20/2024 11:21 AM RUBBER MIXER This order has been auto-finalized and does not contain a result. us Provider Transcribed Order IMG CT PROCEDURES Fin al Result RAD_NEREIDA_MHB_MHE documented in this encounter Visit Diagnoses Not on filedocumented in this encounter Care Teams [employer] Advisor Relationship Specialty Start Date End Date Bouchra Vickers MD [address] [address] PCP - General 01/18/19 Donte Campuzano MD [address] [address] Consulting Physician Pulmonary Disease 05/22/22 documented as of this encounter
--- OUTSIDE RECORDS SUMMARY | 2024-04-02 18:38 | XMS_ITS | Encounter Summary ---
Author Organization [facility] Healthcare Address [address] [place] [address] Care Team Providers Care Manager Oracle Name Role Phone Bouchra Vickers MD Primary Care Provider [phone] Sultan Elvin Mccartney MD Unavailable [phone] Donte Campuzano MD Unavailable [phone] Encounter Details Date Type Department Care Team (Latest Contact Info) Description 07/10/2023 10:28 AM CDT - 07/10/2023 11:59 PM CDT Hospital Encounter [facility] [place] [address] Discharge Disposition: Discharge to home or self care Social History Tobacco Use Types Packs/Day Years Used Date Smoking Tobacco: Never Personal Safety Answer Date Recorded Getting School Help Needed Not on file 05/22 Comments No Sex and Gender Information Value Date Recorded Sex Assigned at Not on file 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 Post right lower lobe lung biopsy ?? TECHNIQUE: 1 ??radiographic view(s) of the chest. COMPARISON: Chest CT 07/10/2023 FINDINGS: LUNGS: ??No focal opacity, pleural effusion, or pneumothorax. ?? Subtle nodule is seen in the right lung base. HEART/MEDIASTINUM: ??Cardiac silhouette normal in size. Mediastinal and hilar contours appear normal. LINES/TUBES: ??None. BONES: ??No acute osseous abnormality. IMPRESSION: No evidence of pneumothorax following a right lower lobe biopsy. ?? No other acute complication. THIS IS AN ELECTRONICALLY VERIFIED FINAL REPORT 07/10/2023 12:51 PM - Electronically signed by ??Carlos KEY D: ??07/10/2023 12:51 PM T: Report ID: [id number] Reading Location: ??[id number] Procedure Note Carlos Nam MD - 07/10/2023 EXAM DESCRIPTION: XR CHEST 1 VIEW REASON [...] evidence of pneumothorax following a right lower lobebiopsy. No other acute complication. THIS IS AN ELECTRONICALLY VERIFIED FINAL REPORT 07/10/2023 12:51 PM - Electronically signed by Carlos KEY T: Report ID: [id number] Reading Location: [id number] Carlos Nam MD IMG XR PROCEDURES Kathy l Result documented in this encounter Visit Diagnoses Not on filedocumented in this encounter Care Teams Manager Oracle Relationship Specialty Start Date End Date Bouchra Vickers MD [address] [address] PCP - General 01/18/19 Sultan Elvin Mccartney MD [address] [facility] [address] [address] Consulting Physician Cardiovascular Disease 05/22/22 Donte Campuzano MD [address] [facility] [address] [place] [address] Consulting Physician Pulmonary Disease 05/22/22 documented as of this encounter
--- OUTSIDE RECORDS SUMMARY | 2024-04-02 18:38 | XMS_ITS | Encounter Summary ---
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 Gender Identity Not on file Sexual Orientation [...] 1 tablet (60 mg total) by mouth help desk engineer 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 fluticasone propionate (FLONASE) 50 mcg/actuation nasal sprayIndication s:Centrilobular emphysema (HCC) Administer 2 sprays into each nostril daily 16 g 6 07/16/2023 metoprolol XL (TOPROL-XL) 50 mg extended release tablet Take 1 tablet (50 mg total) by mouth daily nitroglycerin (NITROSTAT) 0.4 mg SL tablet For esophageal spasms only polyethylene glycol (MIRALAX) 17 gram/dose powder 04/24/2012 predniSONE (DELTASONE) 20 mg tabletIndicatio ns:Nodule of right lung Take 1 tablet (20 mg) by mouth daily 30 tablet 09/05/2023 4 budesonide-glyc opyr-formoterol (Breztri Aerosphere) 160-9-4.8 mcg/actuation HFA [...] Diagnosis Comments CT BODY OUTSIDE REFERENCE Routine 09/17/2023 11:20 AM CDT documented in this encounter Results * CT Body Outside Reference (09/17/2023 11:20 AM CDT) Narrative RAD_CLARIO_MHB_MHE - 10/23/2023 8:17 AM CDT This order has been auto-finalized and does not contain a result. us Provider Transcribed Order IMG CT PROCEDURES Fin al Result RAD_THIAGOIO_MHB_MHE documented in this encounter Visit Diagnoses Not on filedocumented in this encounter Care Teams Supervisor Assembly Department Relationship Specialty Start Date End Date Bouchra Vickers MD [address] [address] PCP - General 01/18/19 Donte Campuzano MD [address] [facility] [address] [place] [address] Consulting Physician Pulmonary Disease 05/22/22 documented as of this encounter
--- OUTSIDE RECORDS SUMMARY | 2024-04-02 18:38 | XMS_ITS | Encounter Summary ---
Author Organization [facility] Healthcare Address [address] [place] [address] Care Team Providers Care Radio Control Crane Operator Name Role Phone Bouchra Vickers MD Primary Care Provider [phone] Sultan Elvin Mccartney MD Unavailable [phone] Donte Campuzano MD Unavailable [phone] Encounter Details Date Type Department Care Team (Late st Contact Info) Description 07/16/2023 10:00 AM CDT Lab [facility] [place], [place] [id number] Pulmonary nodule Social History Tobacco Use Types Packs/Day Years Used Date Smoking Tobacco: Never Personal Safety Answer Date Recorded Getting School Help Needed Not on file 05/22 Comments No Sex and Gender Information Value Date Recorded Sex Assigned at Not on file 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 tuberculosis antigens was detected. Latent infection with M. tuberculosis is unlikely. A single negative result does not exclude infection with M. tuberculosis. In patients at high risk for M.tuberculosis infection, a second test should be considered in accordance with the 2017 ATS/IDSA/CDC Clinical Practice Guidelines for Diagnosis of Tuberculosis in Adults and Children [Lewinsohn DM et. al. Clin. Infect. Dis. 2017;64(2):111-115]. The reference range for the 'TB1 Ag minus Nil Result' and 'TB2 Ag minus Nil Result' is an Interferon-gamma level <0.35 IU/mL. TB-Nil 0.03 IUnits/mL [facility] MH TB2-Nil 0.01 IUnits/mL CERNER Mitogen-Nil 9.99 IUnits/mL CERNER NIL 0.01 IUnits/mL CERNER Comment: Test Performed by: [place] [address] Medical Health Researcher: Praveen Jiménez M.D. Ph.D.; CLIA# [id number] Blood 07/16/2023 10:1 4 AM CDT 07/16/2023 10:39 AM CDT us Donte Campuzano MD LAB BLOOD ORDERABLES Kathy l Result Performing Organization Address City/State/[facility] Co de Phone Number KEYSHA [address] [facility] Department [place] [address] [facility] documented in this encounter Visit Diagnoses Diagnosis Pulmonary nodule Other diseases of lung, not elsewhere classified documented in this encounter Care Teams Radio Control Crane Operator Relationship Specialty Start Date End Date Bouchra Vickers MD [address] [address] PCP - General 01/18/19 Sultan Elvin Mccartney MD [address] [facility] [address] [address] Consulting Physician Cardiovascular Disease 05/22/22 Donte Campuzano MD [address] [facility] [address] [address] Consulting Physician Pulmonary Disease 05/22/22 documented as of this encounter
--- OUTSIDE RECORDS SUMMARY | 2024-04-02 18:38 | XMS_ITS | Encounter Summary ---
Author Organization [facility] Healthcare Address [address] [place] [address] Care Team Providers Care Gastroenterology Technician Name Role Phone Bouchra Vickers MD Primary Care Provider [phone] Donte Campuzano MD Unavailable [phone] Reason for Referral * MRI/CAT/PET Scan (Routine) - Closed Specialty Diagnoses / Procedures Referred By Fernando t Referred To Contact Diagnoses Nodule of right lung Procedures CT Chest WO Contrast Donte Campuzano MD [address] [place] [address] [address] [place] [address] Phone: tel: fax: External Order Referral ID Status Reason Start Date Expiration Date Visits Re quested Visits Authorized [id number] Closed 09/05/2023 10/04/2024 1 1 Reason for Visit * Reason Comments Follow-up Encounter Details Date Type Department Care Team (Late st Contact Info) Description 09/05/2023 8:45 AM CDT Office Visit [facility] Pulmonology [address] [place] [address] Donte Campuzano MD [address] [place] [address] [address] [place] [address] Centrilobular emphysema (HCC) (Primary Dx); Nodule of [...] on file 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 Gender Identity Not on file Sexual Orientation Not on file documented as of this encounter Last Filed Vital Signs Vital Sign Reading Time Taken Comments Blood Pressure 115/60 09/05/2023 8:44 AM CDT Pulse 68 09/05/2023 8:44 AM CDT Temperature - - Respiratory Rate 18 09/05/2023 8:44 AM CDT Oxygen Saturation 97% 09/05/2023 8:44 AM CDT Inhaled Oxygen Concentration - - Weight 49 kg (108 lb) 09/05/2023 8:44 AM CDT Height 160 cm (5' 3 ) 09/05/2023 8:44 AM CDT Body Mass Index 19.13 09/05/2023 8:44 AM CDT documented in this encounter Ordered Prescriptions Prescription Sig Dispense Quantity Refills Last Filled Start Date End Date predniSONE (DELTASONE) 20 mg tabletIndications: Nodule of right lung Take 1 tablet (20 mg) by mouth daily 30 tablet 09/05/2023 10/05/2023 documented in this encounter Progress Notes * Donte Campuzano MD - 09/05/2023 8:45 AM CDT Images from the original note were not included. Progress Note Patient: Obi Gama ( - 1965) is a 58 y.o. female. Visit Date: 09/05/2023 History of Present Illness: The patient is a pleasant 58 year old female that returns for follow-up. She states that she is doing very well on the prednisone 20 mg daily for the last 3 weeks. She states that she is coughing less and her breathing is better and she continues to use breztri 2 puffs b.i.d. and p.r.n. albuterol. Her GERD symptoms have not worsened and she continues to use Prilosec daily. Past Medical History: Past Medical [...] as needed for wheezing 1 each 0 tctilhjify-aoiytefp-nrcyuxkrfc (Breztri Aerosphere) 160-9-4.8 mcg/actuation HFA aerosol inhaler [...] 1 tablet (60 mg total) by mouth machine printer hose 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 fluticasone propionate (FLONASE) 50 mcg/actuation [...] (20 mg) by mouth daily 30 tablet 0 No current facility-administered medications [...] Activity Drug use: Yes Types: Marijuana Comment: charlys Sexual activity: Yes Partners: Male control/protection: Hysterectomy [...] for dizziness and light-headedness. Physical Exam: Vitals: 09/05/23 0844 BP: 115/60 BP Location: Left arm Patient Position: Sitting Pulse: 68 Resp: 18 SpO2: 97% Weight: 49 kg (108 lb) Height: 160 cm (5' 3 ) [...] place, and time. Data Reviewed Images: PET scan 26 June 2023 Assessment and Plan: Diagnoses and all orders for this visit: Centrilobular emphysema (HCC) (Primary) Assessment & Plan: The patient's breathing has improved with using the prednisone 20 mg daily. She continues on breztri 2 puffs b.i.d. and p.r.n. albuterol. 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 I will repeat another chest CT in 2 weeks and she will follow up here in 4 weeks. Orders: - CT Chest WO Contrast; Future - predniSONE (DELTASONE) 20 mg tablet; Take 1 tablet (20 mg) by mouth daily Gastroesophageal reflux disease without esophagitis Assessment & Plan: She continues to do well on Prilosec daily and states there reflux is not any worse since starting the prednisone. Rendering Provider & Department: Donte Campuzano MD documented in this encounter Miscellaneous Notes * Assessment & Plan Note - Donte Campuzano MD - 09/05/2023 9:00 AM CDT Associated Problem(s): Gastroesophageal reflux disease without esophagitis She continues to do well on Prilosec daily and states there reflux is not any worse since starting the prednisone. 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 I will repeat another chest CT in 2 weeks and she will follow up here in 4 weeks. * Assessment & Plan Note - Donte Campuzano MD - 09/05/2023 9:00 AM CDT Associated Problem(s): Centrilobular emphysema (HCC) The patient's breathing has improved with using the prednisone 20 mg daily. She continues on breztri 2 puffs b.i.d. and p.r.n. albuterol. documented in this encounter Plan of Treatment Scheduled Orders Name Type Priority Associated Diagnoses Orde r Schedule CT Chest WO Contrast Imaging Schedule Routine, Read Routine (OP Routine) Nodule of right lung Expected: 09/19/2023, Expires: 09/04/2024 documented as of this encounter Visit Diagnoses Diagnosis Centrilobular emphysema (HCC)- Primary Nodule of right lung Other diseases of lung, not elsewhere classified Gastroesophageal reflux disease without esophagitis Esophageal reflux documented in this encounter Discontinued Medications Medication Sig Discontinue Reason Start Date End Da te predniSONE (DELTASONE) 20 mg tabletIndications:Nodule of right lung Take 1 tablet (20 mg) by mouth daily for 28 doses Reorder 08/15/2023 09/05/2023 documented as of this encounter Care Teams Gastroenterology Technician Relationship Specialty Start Date End Date Bouchra Vickers MD [address] [address] PCP - General 01/18/19 Donte Campuzano MD [address] [facility] [address] [place] [address] Consulting Physician Pulmonary Disease 05/22/22 documented as of this encounter
--- OUTSIDE RECORDS SUMMARY | 2024-04-02 18:38 | XMS_ITS | Encounter Summary ---
Author Organization [facility] Healthcare Address [address] [place] [address] Care Team Providers Care Hand Polisher Name Role Phone Bouchra Vickers MD Primary Care Provider [phone] Donte Campuzano MD Unavailable [phone] Reason for Visit * Auth/Cert (Routine) Specialty Diagnoses / Procedures Referred By Contac t Referred To Contact Diagnoses Nodule of right lung Nodule of right lung [R91.1] Procedures AR BRNCHSC W/BRNCL ALVEOLAR LAVAGE AR BRNCHSC BRUSHING/PROTECTED BRUSHINGS AR BRONCHOSCOPY W/TRANSBRONCHIAL LUNG BX 1 LOBE BRONCHOSCOPY, BRUSHINGS, BIOPSY, LAVAGE Referral ID Status Reason Start Date Expiration Date Visits Re quested Visits Authorized [id number] 1 1 Encounter Details Date Type Department Care Team (Late st Contact Info) Description 08/01/2023 7:30 AM CDT Anesthesia Event [facility] OR [address] [place] [address] Margaret Verma MD [address] [place] [address] Jimenez Draper MD [address] [place] [address] Anesthesia Record Procedure Summary Procedure Name Responsible Anesthesiologist Anesthesia Start Time Anesthesia Stop Time BRONCHOSCOPY WITH BRONCHIAL ALVEOLAR LAVAGE (Right) Margaret Verma MD 08/01/23 0730 08/01/23 0817 Events Date Time Event Comment 08/01/2023 0643 0728 In Room 0730 An Start 0730 An Start Data 0734 An Induction The patient was reevaluated immediately before moderate or deep sedation use and before anesthesia induction. 0735 An Intubation 0736 Anesthesia Ready 0740 Proc Start 0750 Proc Fin 0804 An Extubation 0807 an stop data 0808 Out of Room 0813 Handoff to RN I completed my handoff to the receiving nurse during which we: 1. Patient identified 2. Responsible provider identified 3. Pertinent medical history reviewed 4. Procedure type and surgical course discussed 5. Intraoperative anesthetic management and any significant issues discussed 6. Expectations and concerns for postop period discussed 7. Questions solicited from receiving nurse 8. Patient disposition at the time of handoff: No value filed. 0817 An Stop Meds Name Total midazolam injection 2 mg/2 mL 2 mg fentaNYL 50 mcg/mL PF 50 mcg lidocaine (cardiac) syringe 2 % 5 mL propofol 100 mg succinylcholine 80 mg ondansetron PF 4 mg dexamethasone 4 mg/mL 4 mg naloxone (NARCAN) 0.4 mg/mL injection 0. 04-0.4 mg 40 mcg Lactated Ringer's (LR) infusion 500 mL * Agents Name O2% N2O O2 N2O Air Sevoflurane Inspired Sevoflurane * Blood No blood administrations on file. Lines, Drains, and Airways Type Details Placement Removal RETIRED Surgical Site 07/10/23; 943; No ; Right; Back; Right lung BX site; 03/02/24 (Retired LDA, Removed/Completed by Aircuity with LDA Utility); 1213 (Retired LDA, Removed/Completed by Aircuity with LDA Utility) 07/10/23 0944 by Carolann Christine RN 03/02/24 1213 by Discharge Provider, Automatic Peripheral IV Placement Date: 08/01/23; Placement Time: 611; Catheter Size: 20 G; Orientation: Right; Location: Antecubital; Insertion Attempts: 1; Removal Date: 08/01/23; Removal Time: 1057 08/01/23 06 by Landy Goodwin RN 08/01/23 105 by Luli Rocha RN ETT Placement Date: 08/01/23; Placement Time: 746 (created via procedure documentation); Mask Ventilation: 1; Technique: Video laryngoscopy; Type: ETT - single; Single Lumen Tube Size: 8.5 mm; Cuffed: Yes; Laryngoscope: Tito; Blade Size: 3; Location: Oral; Insertion Attempts: 1; Placement Verification: Auscultation, Capnometry; Removal Date: 08/01/23; Removal Time: 80608/01/23 0747 by Saul Barrera CRNA 08/01/23 0807 by Saul Barrera CRNA documented in this encounter Social History Tobacco [...] on file 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 Gender Identity Not on file Sexual Orientation Not on file documented as of this encounter OR Notes * Anesthesia Postprocedure Evaluation - Margaret Verma MD - 08/01/2023 9:06 AM CDT Patient: Obi Gama Procedure Summary Date: 08/01/23 Room / Location: [facility] / [facility] Anesthesia Start: 729 Anesthesia Stop: 816 Procedure: BRONCHOSCOPY WITH BRONCHIAL ALVEOLAR LAVAGE (Right) Diagnosis: Nodule of right lung (Nodule of right lung [R91.1]) Surgeons: Donte Campuzano MD Responsible Provider: Margaret Verma MD Anesthesia Type: general ASA Status: 3 Anesthesia Type: general Last vitals BP 108/67 (BP Location: Left arm, Patient Position: HOB 30 degrees) Pulse 65 Temp 36.5 ??C (97.7 ??F) (Temporal) Resp 11 SpO2 95% Anesthesia Post Evaluation Patient location during evaluation: PACU Patient participation: complete - patient participated Level of consciousness: fully awake Pain management: adequate Airway patency: adequate Evidence of recall: no Cardiovascular status: acceptable Respiratory status: acceptable Hydration status: acceptable Pt is: normothermic Nausea/Vomiting status: none No notable events documented. * Anesthesia Procedure Notes - Saul Barrera CRNA - 08/01/2023 7:47 AM CDT Associated Order(s): Airway Airway Patient location: pre-op Urgency: elective Indications for airway management: anesthesia Difficult airway: no Staff: Placed by: APIGEE DEVELOPER: Saul Barrera CRNA Emergent airway documentation: Risks and benefits discussed: yes Consent obtained: yes Consent given by: patient Airway prep: Preoxygenated: yes Patient position: sniffing MILS maintained throughout: yes Mask difficulty assessment: 1 - vent by mask Spontaneous ventilation during airway: absent Sedation level during airway: GA Final airway details: Final airway type: endotracheal airway Tube type: ETT ETT size: 8.5 mm Cuffed: yes Technique used for successful ETT placement: video laryngoscopy Insertion site: oral Blade type: Tito Video blade type: Carreon and Glidescope Blade size: 3 Cormack-Lehane (video): grade I - full view of glottis Cuff inflated with: air ETT to teeth: 20 cm Placement verified by: auscultation and CO2 detection Airway secured with: silk tape Number of attempts: 1 Ventilation between attempts: none Planned trial extubation: yes * Anesthesia Preprocedure Evaluation - Margaret Verma MD - 08/01/2023 6:29 AM CDT Images from the original note were not included. Anesthesia Evaluation Obi Gama is a 58 y.o. female BRONCHOSCOPY, BRUSHINGS, BIOPSY, LAVAGE (Right) Pre-Op Diagnosis Codes: * Nodule of right lung [R91.1] HISTORY HPI Mitral valve prolapseEsophageal spasm MigraineMood disorder (HCC) IBS (irritable bowel syndrome)Emphysema lung (HCC) Pulmonary sarcoidosis (HCC)MVP (mitral valve prolapse) Pulmonary noduleDelayed emergence from general anesthesia PONV (postoperative nausea and vomiting) 1.) Right lower lobe nodule 2.) History of stage III COPD Past Medical History Respiratory + COPD Gastrointestinal + GERD Patient Active Problem List Diagnosis Date Noted Nodule of right lung 07/17/2023 Centrilobular emphysema (HCC) 05/30/2023 Chronic cough 07/26/2022 Pulmonary nodule 06/12/2022 Gastroesophageal reflux disease without esophagitis 06/12/2022 Shortness of breath 05/19/2022 Mitral valve prolapse 05/19/2022 Acute respiratory failure with hypoxia (CMS/HCC) (HCC) 05/19/2022 Bronchitis with acute wheezing 05/19/2022 Mucus plugging of bronchi 05/19/2022 Chest pain 10/07/2014 Esophageal dysmotility 10/07/2014 Irritable bowel syndrome 10/07/2014 Constipation 10/07/2014 Past Medical History: Diagnosis Date Delayed emergence from general anesthesia Emphysema lung (HCC) Esophageal spasm takes tng for tx IBS (irritable bowel syndrome) Migraine no longer Mitral valve prolapse Mood disorder ([facility]) MVP (mitral valve prolapse) takes metoprolol for tx PONV (postoperative nausea and vomiting) Pulmonary nodule Pulmonary sarcoidosis (HCC) Past Surgical History: Procedure Laterality Date BLADDER SUSPENSION CHOLECYSTECTOMY HYSTERECTOMY LUNG BIOPSY 07/10/2023 OB History 2 Para 2 Term 2 0 AB 0 Living 2 SAB 0 IAB 0 Ectopic 0 Multiple 0 Live Births 2 Obstetric Comments Allergies Allergen Reactions Sumatriptan Anaphylaxis Zolmitriptan Anaphylaxis Throat Swelling, Adhesive Rash red rash, burning Med List Status: Nurse Complete Set By: Digna Gil RN at 07/22/2023 3:01 PM Taking? Last Dose Start Date End Date Provider albuterol HFA (PROVENTIL HFA,VENTOLIN HFA,PROAIR HFA) 90 mcg/actuation inhaler 08/01/2023 05/22/22 --Miguelina Ruggiero MD Inhale 2 puffs every 4 (four) hours as needed for wheezing mcyzwnkiam-jugtinoc-akhoxtopvw (Breztri Aerosphere) 160-9-4.8 mcg/actuation HFA aerosol inhaler 07/31/2023 07/26/22 -- Nela Vale NP Inhale 2 puffs 2 (two) times a day cyanocobalamin (Vitamin B-12) 1,000 mcg/mL injection 07/11/2023 -- -- Blessing Morris MD estradioL (ESTRACE) 0.5 mg tablet 07/31/2023 06/17/23 06/16/24 Praveen Marie MD Take 1 tablet (0.5 mg total) by mouth daily FLUoxetine (PROzac) 60 mg tablet 07/31/2023 -- -- Blessing Morris MD fluticasone propionate (FLONASE) 50 mcg/actuation nasal spray Not Taking 07/16/23 01/12/24 Donte Campuzano MD Administer 2 sprays into each nostril daily Patient not taking: Reported on 07/22/2023 metoprolol XL (TOPROL-XL) 50 mg extended release tablet 08/01/2023 -- -- Blessing Morris MD nitroglycerin (NITROSTAT) 0.4 mg SL tablet Unknown -- -- Blessing Morris MD omeprazole (PriLOSEC) 20 mg capsule 08/01/2023 06/12/22 08/01/23 Nela Vale, OPAL Take 1 capsule (20 mg total) by mouth daily polyethylene glycol (MIRALAX) 17 gram/dose powder Not Taking 04/24/12 -- Blessing Morris MD Current Facility-Administered Medications: Carrier Fluids for Secondary Infusion - 0.9% Sodium Chloride, 30 mL, intravenous, PRN Lactated Ringer's (LR) infusion, 30 mL/hr, intravenous, Continuous, Last Rate: 30 mL/hr at 4, 30 mL/hr at 08/01/23 0614 sodium chloride 0.9% flush 0.5-20 mL, 0.5-20 mL, intra-catheter, PRN sodium chloride 0.9% flush 0.5-20 mL, 0.5-20 mL, intra-catheter, PRN Social History Tobacco Use Smoking Status Never Smokeless Tobacco Never Alcohol Use: Unknown (08/01/2023) AUDIT-C Frequency of Alcohol Consumption: Monthly or less Average Number of Drinks: Patient does not drink Frequency of Binge Drinking: Not on file Substance and Sexual Activity Drug Use Yes Types: Marijuana Comment: luis Family History Problem Relation Age of Onset Hypertension Mother Family history of hypertension - (Added by TW Conv) Diabetes Mother Family history of diabetes mellitus - (Added by TW Conv) Breast cancer Neg Hx Ovarian cancer Neg Hx Vitals: 08/01/23 0555 BP: 118/64 Pulse: 73 Resp: 16 Temp: 36.2 ??C (97.2 ??F) SpO2: 98% PT: 07/02/2023: 12.1 sec INR: 07/02/2023: 0.9 APTT: 07/02/2023: 27 sec Hgb A1C: No results found for requested labs within last 30 days. CBC RBC: 08/01/2023: 4.11 M/cumm RDW: No results found for requested labs within last 30 days. MCHC: 08/01/2023: 33.7 g/dL MCH: 08/01/2023: 29.4 pg MCV: 08/01/2023: 87.3 fL Hct: 08/01/2023: 35.9 % Hgb: 08/01/2023: 12.1 g/dL WBC: 08/01/2023: 4.1 K/cumm MPV: 08/01/2023: 9.7 fL Platelets: 08/01/2023: 200 K/cumm RDW CV: 08/01/2023: 12.7 % RDW Sd: 08/01/2023: 40.5 fL BMP Glucose: No results found for requested labs within last 30 days. Calcium: No results found for requested labs within last 30 days. Sodium: No results found for requested labs within last 30 days. Potassium: No results found for requested labs within last 30 days. CO2: No results found for requested labs within last 30 days. Chloride: No results found for requested labs within last 30 days. BUN: No results found for requested labs within last 30 days. Creatinine: No results found for requested labs within last 30 days. STOP-Bang Total Score: 1 DOS Physical Exam Medical history, medications, and allergies reviewed. Attestation: This PAT evaluation 08/01/2023. Airway Exam: Mallampati: II Cervical ROM: FROM TM distance: 3 Cardiovascular Exam: Rate: regular Rhythm: regular Pulmonary Exam: LCTA, bilat EENT Exam: trachea midline Current state: Patient's current state is cooperative. Anesthesia Plan ASA 3 My patient is approved for the Anesthesia Controlled Medication protocol when under care of a APIGEE DEVELOPER Planned anesthesia: General Team communication plan: oral ET tube Induction: Induction: intravenous. Postoperative Plan: Postoperative administration opioids intended. No postoperative mechanical ventilation intended. Patient's planned disposition post procedure is Outpatient. Informed Consent: Discussed plan with APIGEE DEVELOPER. Anesthesia plan and risks discussed with patient. Plan and Consent Comments: PLAN GLIDESCOPE FOR INTUBATION TO MINIMIZE IRRITATION TO BACK OF THROAT FOR PLACEMENT OF ETT PT APPEARS TO HAVE AN AIRWAY ON EXAMINATION Consent and Attending signature: I and/or my designee have discussed the anesthesia plan, benefits, possible alternatives, parental presence at time of induction (if indicated), and clinically relevant risks that may include dental injury, unintentional awareness, and/or other complications. The patient and/or parent/legal guardian understand, and agree to proceed. All questions answered. documented in this encounter Plan of Treatment Not on file documented as of this encounter Procedures Procedure Name Priority Date/Time Associated Diagnosis Comments AR AN PROCEDURE PLACEHOLDER Routine 08/01/2023 7:47 AM CDT AR AN ELECTIVE ENDOTRACHEAL AIRWAY Routine 08/01/2023 7:47 AM CDT documented in this encounter Results * AR AN ELECTIVE ENDOTRACHEAL AIRWAY, AR AN PROCEDURE PLACEHOLDER (08/01/2023 7:47 AM CDT) Narrative Saul Barrera CRNA - 08/01/2023 7:47 AM CDT Saul Barrera CRNA ? 08/01/2023 ??7:47 AM Airway Patient location: pre-op Urgency: elective Indications for airway management: anesthesia Difficult airway: no Staff: Placed by: APIGEE DEVELOPER: Saul Barrera CRNA Emergent airway documentation: Risks and benefits discussed: yes Consent obtained: yes Consent given by: patient Airway prep: Preoxygenated: yes Patient position: sniffing MILS maintained throughout: yes Mask difficulty assessment: 1 - vent by mask Spontaneous ventilation during airway: absent Sedation level during airway: GA Final airway details: Final airway type: endotracheal airway Tube type: ETT ETT size: 8.5 mm Cuffed: yes Technique used for successful ETT placement: video laryngoscopy Insertion site: oral Blade type: Tito Video blade type: Carreon and Glidescope Blade size: 3 Cormack-Lehane (video): grade I - full view of glottis Cuff inflated with: air ETT to teeth: 20 cm Placement verified by: auscultation and CO2 detection Airway secured with: silk tape Number of attempts: 1 Ventilation between attempts: none Planned trial extubation: yes Saul Barrera APIGEE DEVELOPER ANESTHESIA ORDERABLES Kathy l Result documented in this encounter Visit Diagnoses Not on filedocumented in this encounter Administered Medications Inactive Administered Medications - up to 3 most recent administrations Medication Order MAR Action Action Date Dose Rate Site dexAMETHasone (DECADRON) 4 mg/mL injection intravenous, Administer over 2 Minutes, As needed, Starting on Fri08/01/23 at 0734, Anesthesia Intra-op Given 08/01/2023 7:34 AM CDT 4 mg fentaNYL (SUBLIMAZE) preservative free injection intravenous, As needed, Starting on Fri08/01/23 at 0734, Anesthesia Intra-op Given 08/01/2023 7:34 AM CDT 50 mcg Lactated Ringer's (LR) infusion 30 mL/hr, intravenous, Continuous, Starting on Fri08/01/23 at 0615, Pre-Op Restarted 08/01/2023 7:34 AM CDT Rate/Dose Verify 08/01/2023 7:30 AM CDT 30 mL/h r Restarted 08/01/2023 7:08 AM CDT lidocaine (cardiac) (XYLOCAINE) preservative free injection intravenous, As needed, Starting on Fri08/01/23 at 0734, Anesthesia Intra-op, Indications: Ventricular ArrhythmiasIndications:Ventricular Arrhythmias Given 08/01/2023 7:34 AM CDT 5 mL midazolam (VERSED) 1 mg/mL injection intravenous, As needed, Starting on Fri08/01/23 at 0731, Anesthesia Intra-op Given 08/01/2023 7:31 AM CDT 2 mg naloxone (NARCAN) 0.4 mg/mL injection 0.04-0.4 mg 0.04-0.4 mg, intravenous, Once as needed, other, [...] IV, administer over 30 seconds., Indications: Opioid ToxicityIndications:Opioid Toxicity Given 08/01/2023 8:00 AM CDT 40 mcg ondansetron (ZOFRAN) injection intravenous, Administer over 2 Minutes, As needed, Starting on Fri08/01/23 at 0738, Anesthesia Intra-op Given 08/01/2023 7:38 AM CDT 4 mg propofoL (DIPRIVAN) 10 mg/mL IV intravenous, As needed, Starting on Fri08/01/23 at 0734, Anesthesia Intra-op New Bag 08/01/2023 7:34 AM CDT 100 mg succinylcholine (ANECTINE) injection intravenous, As needed, Starting on Fri08/01/23 at 0734, Anesthesia Intra-op Given 08/01/2023 7:34 AM CDT 80 mg documented in this encounter Care Teams Hand Polisher Relationship Specialty Start Date End Date Bouchra Vickers MD [address] [address] PCP - General 01/18/19 Donte Campuzano MD [address] [facility] [address] [place] [address] Consulting Physician Pulmonary Disease 05/22/22 documented as of this encounter
--- OUTSIDE RECORDS SUMMARY | 2024-04-02 18:38 | XMS_ITS | Encounter Summary ---
Author Organization [facility] Healthcare Address [address] [place] [address] Care Team Providers Care Single Ending Machine Operator Name Role Phone Bouchra Vickers MD Primary Care Provider [phone] Sultan Elvin Mccartney MD Unavailable [phone] Donte Campuzano MD Unavailable [phone] Encounter Details Date Type Department Care Team (Latest Contact Info) Description 07/10/2023 11:49 AM CDT - 07/10/2023 11:59 PM CDT Hospital Encounter [facility] Diagnostic [facility] [place] [address] Discharge Disposition: Discharge to home or self care Social History Tobacco Use Types Packs/Day Years Used Date Smoking Tobacco: Never Personal Safety Answer Date Recorded Getting School Help Needed Not on file 05/22 Comments No Sex and Gender Information Value Date Recorded Sex Assigned at Not on file Legal Sex Female 10:19 AM BRAND SPECIALIST Gender Identity Not on file Sexual Orientation [...] 1 tablet (60 mg total) by mouth lodge attendant 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 metoprolol XL (TOPROL-XL) 50 mg [...] XR CHEST 1 VIEW IP Routine 07/10/2023 12:25 PM CDT documented in this encounter Results * XR Chest 1 View (07/10/2023 12:25 PM CDT) Anatomical Region Laterality Modality Body, Chest N/A Computed Radiogr aphy 07/10/2023 12:5 1 PM CDT Narrative 07/10/2023 12:51 PM CDT EXAM DESCRIPTION: XR CHEST 1 VIEW REASON FOR STUDY: right lower lobe lung biopsy ?? Post right lower lobe lung biopsy x 07/10/23. ?? TECHNIQUE: 1 ??radiographic view(s) of the chest. COMPARISON: 07/10/2023 FINDINGS: LUNGS: ??No focal opacity, pleural effusion, or pneumothorax. ?? Subtle nodule in the right lung base. HEART/MEDIASTINUM: ??Cardiac silhouette normal in size. Mediastinal and hilar contours appear normal. LINES/TUBES: ??None. BONES: ??No acute osseous abnormality. IMPRESSION: No evidence of pneumothorax. THIS IS AN ELECTRONICALLY VERIFIED FINAL REPORT 07/10/2023 12:51 PM - Electronically signed by ??Carlos KEY D: ??07/10/2023 12:51 PM T: Report ID: [id number] Reading Location: ??[id number] Procedure Note Carlos Nam MD - 07/10/2023 [...] signed by Carlos KEY T: Report ID: [id number] Reading Location: [id number] Carlos Nam MD IMG XR PROCEDURES Kathy l Result documented in this encounter Visit Diagnoses Not on filedocumented in this encounter Care Teams Single Ending Machine Operator Relationship Specialty Start Date End Date Bouchra Vickers MD [address] [address] PCP - General 01/18/19 Sultan Elvin Mccartney MD [address] [facility] [address] [address] Consulting Physician Cardiovascular Disease 05/22/22 Donte Campuzano MD [address] [facility] [address] [place] [address] Consulting Physician Pulmonary Disease 05/22/22 documented as of this encounter
--- OUTSIDE RECORDS SUMMARY | 2024-04-02 18:38 | XMS_ITS | Encounter Summary ---
Author Organization [facility] Healthcare Address [address] [place] [address] Care Team Providers Care Association Executive Name Role Phone Bouchra Vickers MD Primary Care Provider [phone] Donte Campuzano MD Unavailable [phone] Encounter Details Date Type Department Care Team (Late st Contact Info) Description 02/20/2024 10:00 AM PROFESSOR OF SOCIAL WORK Lab [facility] [address] [place] [address] Social History Tobacco Use Types Packs/Day Years [...] on file Legal Sex Female 10:19 AM PROFESSOR OF SOCIAL WORK Gender Identity Not on file Sexual Orientation Not on file documented as of this encounter Plan of Treatment Not on file documented as of this encounter Procedures Procedure Name Priority Date/Time Associated Diagnosis Comments HISTOPLASMA ANTIBODY Routine 02/20/2024 10:22 AM PROFESSOR OF SOCIAL WORK documented in this encounter Results * Histoplasma Antibody Blood (02/20/2024 10:22 AM PROFESSOR OF SOCIAL WORK) Histoplasma Ab, yeast CF Negative Negative [facility] Histoplasma Ab, Immunodiffusion Negative Negative KEYSHA HAL Comment: A negative complement fixation and immunodiffusion (CF/ID) result does not exclude the diagnosis of histoplasmosis. ?? Repeat testing by CF/ID in 1-2 weeks if clinically indicated. Test Performed by: [facility] [address] [id number] Tank Truck Milk Receiver: Nicole Marcum Ph.D.; CLIA# [id number] Blood 02/20/2024 10:2 2 AM PROFESSOR OF SOCIAL WORK 02/20/2024 10:43 AM PROFESSOR OF SOCIAL WORK us Donte Campuzano MD LAB MICROBIOLOGY - GENERA L ORDERABLES Final Result KEYSHA [address] [facility] Department [place] [address] [facility] documented in this encounter Visit Diagnoses Not on filedocumented in this encounter Care Teams Association Executive Relationship Specialty Start Date End Date Bouchra Vickers MD [address] [address] PCP - General 01/18/19 Donte Campuzano MD [address] [facility] [address] [place] [address] Consulting Physician Pulmonary Disease 05/22/22 documented as of this encounter
--- OUTSIDE RECORDS SUMMARY | 2024-04-02 18:38 | XMS_ITS | Clinical Summary ---
Author Organization [facility] Address [address] [place] [address] Care Team Providers Care Software Technician Name Role Phone Bouchra Vickers MD Primary Care Provider [phone] Donte Campuzano MD Unavailable [phone] Allergies Active Allergy Reactions Criticality Noted Date Comments Adhesive Rash Medium 04/06/2021 red rash, burning Sumatriptan Anaphylaxis High Zolmitriptan Anaphylaxis High 04/06/2021 Throat Swelling, Medications metoprolol XL (TOPROL-XL) 50 mg extended release tablet Take 1 tablet (50 mg total) by mouth daily Active FLUoxetine (PROzac) 60 mg tablet Take 1 tablet (60 mg total) by mouth director financial planning 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 Active nitroglycerin (NITROSTAT) 0.4 mg [...] into each nostril daily 16 g 6 Active Additional Information Patient not taking.Reported on 02/20/2024 predniSONE (DELTASONE) 5 mg tablet Take 3 tabs qam 90 tablet 2 Active budesonide-gly copyr-formoter ol (Breztri Aerosphere) 160-9-4.8 [...] 07/17/2023 Assessment & Plan (02/20/2024 9:44 AM PERSONNEL SECURITY ASSISTANT): The patient did have the largest right [...] appointment. The CT will be performed at [facility]. 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 I will repeat another chest CT in 2 weeks and she will follow up here in 4 weeks. Centrilobular emphysema 05/30/2023 Assessment & Plan (02/20/2024 9:43 AM PERSONNEL SECURITY ASSISTANT): The patient never smoked and does have [...] secretions. Assessment & Plan (05/30/2023 10:16 AM PERSONNEL SECURITY ASSISTANT): She states that she is requiring her albuterol inhaler more often. She will continue with breztri 2 puffs b.i.d. and I will check full PFTs at [facility] and start Mucinex 600 mg p.o. b.i.d. [...] week. Assessment & Plan (05/30/2023 10:15 AM PERSONNEL SECURITY ASSISTANT): The original 6 mm right lower lobe [...] November 2023. She does complete these at [facility]. I have given the patient an order to have the CT scan completed. The patient is also going to cotton picker operator the disc from the CT scan at [facility] in May for [facility] to compare. Assessment & Plan (07/26/2022 10:05 AM CDT): I have ordered a CT scan of the chest for October of 2022. Assessment & Plan (06/12/2022 3:55 PM CDT): I have ordered a CT scan of the chest for October of 2022. Gastroesophageal reflux disease without esophagi tis 06/12/2022 Assessment & Plan (02/20/2024 9:44 AM PERSONNEL SECURITY ASSISTANT): She has been having increased reflux symptoms [...] Prilosec Assessment & Plan (05/30/2023 10:16 AM PERSONNEL SECURITY ASSISTANT): She continues on a proton pump inhibitor [...] 05/19/2022 Acute respiratory failure with hypoxia (CMS/HCC) 05/19/2022 Bronchitis with acute wheezing 05/19/2022 Mucus [...] a spacer to use with her inhalers. Encounters Date Type Department Care Team Description 02/20/2024 10:00 AM PERSONNEL SECURITY ASSISTANT Lab [facility] [address] [place] [address] 02/20/2024 9:15 AM PERSONNEL SECURITY ASSISTANT Office Visit [facility] Pulmonology [address] [facility] [address] [place] [address] Donte Campuzano MD Centrilobular emphysema (HCC) (Primary Dx); Nodule of right lung; Gastroesophageal reflux disease without esophagitis 02/17/2024 11:45 AM PERSONNEL SECURITY ASSISTANT - 02/17/2024 11:59 PM PERSONNEL SECURITY ASSISTANT Hospital Encounter [facility] [employer] [address] [place] [address] Discharge Disposition: Discharge to home or self care from Last 3 Months Immunizations Name Administration Dates Next Due Pneumococcal Conjugate Pcv20 03/19/2024 Surgical History Surgery Date Site/Laterality Comments HYSTERECTOMY CHOLECYSTECTOMY BLADDER SUSPENSION LUNG BIOPSY 07/10/2023 BRONCHOSCOPY 07/30/2023 - 08/29/2023 Medical History Medical History Date Comments Mitral valve prolapse Esophageal spasm takes tng for t x Migraine no longer Mood disorder (HCC) IBS (irritable bowel syndrome) Emphysema lung (HCC) Pulmonary sarcoidosis (HCC) MVP (mitral valve prolapse) take s metoprolol for tx Pulmonary nodule Delayed emergence from general anesthesia PONV (postoperative nausea and vomiting) Family History Medical History Relation Name Comments Diabetes Mother Family history of diabetes mellitus - (Added by TW Conv) Hypertension Mother Family history of hypertension - (Added by TW Conv) Breast cancer Neg Hx Ovarian cancer Neg Hx Relation Name Status Comments Mother Social History Tobacco Use Types Packs/Day Years [...] on file Legal Sex Female 10:19 AM PERSONNEL SECURITY ASSISTANT Gender Identity Not on file Sexual Orientation Not on file Obstetrics History Para Term AB IAB SAB Ectopic Multiple Livin g Live Births 2 2 2 0 0 0 0 0 0 2 2 Date Outcome GA Total Labor Labor/2nd/3rd Weight Sex Type Anes PTL Bessy A1 A5 Name Clin Term Term Comments Last Filed Vital Signs Vital Sign Reading Time Taken Comments Blood Pressure 126/78 02/20/2024 9:04 AM PERSONNEL SECURITY ASSISTANT Pulse 84 02/20/2024 9:04 AM PERSONNEL SECURITY ASSISTANT Temperature 36.6 ??C (97.8 ??F) 02/20/2024 9:04 AM CS T Respiratory Rate 22 02/20/2024 9:04 AM PERSONNEL SECURITY ASSISTANT Oxygen Saturation 99% 02/20/2024 9:04 AM PERSONNEL SECURITY ASSISTANT Inhaled Oxygen Concentration - - Weight 45.8 kg (101 lb) 02/20/2024 9:04 AM PERSONNEL SECURITY ASSISTANT Height 160 cm (5' 3 ) 02/20/2024 9:04 AM PERSONNEL SECURITY ASSISTANT Body Mass Index 17.89 02/20/2024 9:04 AM PERSONNEL SECURITY ASSISTANT Plan of Treatment Health Maintenance Due Date Last Done Comments Colon Cancer Screening-Colonoscopy 1965 Depression Screening 1965 Hepatitis C Screening 1965 Hepatitis B Screening 07/02/1981 Zoster Vaccine (1 of 2) 07/02/2013 Breast Cancer Screening-Mammogram 06/21/2022 022, 09/22/2015 Covid-19 Vaccine ( - season) 2023 Influenza Vaccine (#1) 2023 12/30/2016, 2008 Regular Well Visit/Exam 18-64 06/16/2024 06/17/2023, 05/18/2021 DTaP/Tdap/Td Vaccine (3 - Td or Tdap) 09/20/2029, 01/03/2009 Cervical Cancer Screening Discontinued 05/18/2021, 09/2015 Pneumococcal vaccine <65 Completed 03/19/2024 Procedures Procedure Name Priority Date/Time Associated Diagnosis Comments HISTOPLASMA ANTIBODY Routine 02/20/2024 10:[address] SEC[address]ITY ASSIST[address] BODY OUTSIDE REFERENCE Routine 02/17/2024 11:45 AM PERSONNEL SECURITY ASSISTANT SCREENING MAMMOGRAM BILATERAL W RICHI Schedule Routine, Read Routine (OP Routine) 06/21/2021 3:05 PM CDT Encounter for screening mammogram for malignant neoplasm of breast PAP AND HIGH RISK HPV, REFLEX TO GENOTYPING Routine 05/18/2021 10:53 AM PERSONNEL SECURITY ASSISTANT Well woman exam from Last 3 Months or Most Recently Relevant to Health Maintenance Results * Histoplasma Antibody Blood (02/20/2024 10:22 AM PERSONNEL SECURITY ASSISTANT) Histoplasma Ab, yeast CF Negative Negative [facility] Histoplasma Ab, Immunodiffusion Negative Negative KEYSHA Comment: A negative complement fixation and immunodiffusion (CF/ID) result does not exclude the diagnosis of histoplasmosis. ?? Repeat testing by CF/ID in 1-2 weeks if clinically indicated. Test Performed by: [facility] [address] [place], [place] [id number] Nib Finisher: Nicole Marcum Ph.D.; CLIA# [id number] Blood 02/20/2024 10:2 2 AM PERSONNEL SECURITY ASSISTANT 02/20/2024 10:43 AM PERSONNEL SECURITY ASSISTANT us Donte Campuzano MD LAB MICROBIOLOGY - GENERA L ORDERABLES Final Result Performing Organization Address City/[facility]/ZIP Co de Phone Number KEYSHA [address] [facility] Department [place] [address] [facility] * CT Body Outside Reference (02/17/2024 11:45 AM PERSONNEL SECURITY ASSISTANT) Narrative [email or web address] - 02/20/2024 11:21 AM PERSONNEL SECURITY ASSISTANT This order has been auto-finalized and does not contain a result. us Provider Transcribed Order IMG CT PROCEDURES Fin al Result Performing Organization Address City/[facility]/ZIP Co de Phone Number [email or web address] * Screening [...] age 40, based on guidelines of the [place] [employer] (ACR Practice Parameter for the Performance of Screening and Diagnostic Mammography) and [place] [employer]. For women [...] breast. There has been no suspicious change. Praveen Marie MD IMG MAMMO PROCEDURES Fi nal Result * Pap and High Risk HPV, reflex to Genotyping (05/18/2021 10:53 AM PERSONNEL SECURITY ASSISTANT) Thin prep (Pap test) 05/18/2021 10:53 AM PERSONNEL SECURITY ASSISTANT 05/21/2021 10:53 AM PERSONNEL SECURITY ASSISTANT Narrative PATHOLOGY [facility] - 05/24/2021 11:29 AM PERSONNEL SECURITY ASSISTANT [facility] Department of Pathology [address] [place] [address] Final Report with Addendum Note to Patients: [...] ??OBI GAMAChloe Address: ??[address], ?? [place], [place] ??[address] Gender: ??F : ??1965 (Age: 55) Service: ??Laboratory Location: ?? Hospital #: ??[id number] Patient Type: ??[facility] SPECIMEN Taken: ??05/18/2021 Received: ??05/21/2021 Accessioned:: ??05/22/2021 Reported: ??05/24/2021 Physician(s): Praveen Marie M.D. [facility] Diagnosis: Source of Specimen: ? SCREENING THIN [...] determined by the Surgical Pathology Department at [facility] as part of an ongoing water quality assistant program and in compliance with federally mandated [...] characteristics determined by the Surgical Pathology Department [facility]. ??It has not been cleared or approved by the U. S. Food and Drug Administration. Praveen Marie MD LAB CYTOLOGY ORDERABLES Final Result Performing Organization Address City/State/[facility] Co de Phone Number [facility] from Last 3 Months or Most Recently Relevant to Health Maintenance Insurance [facility] H[facility]/PPO Address: [facility] [address] [place] [address] [facility] H[facility]/PPO Address: [address] [place] [phone] [facility]/PPO Address: [address] [place] [address] Advance Directives For more information, please contact: [phone] * Full Code (Latest Code Status on File) Date Activated Date Inactivated Comments 07/10/2023 10:13 AM 07/11/2023 5:04 AM * Full Code Date Activated Date Inactivated Comments 05/19/2022 4:50 AM 05/22/2022 5:19 PM Care Teams Software Technician Relationship Specialty Start Date End Date Bouchra Vickers MD [address] [facility] [address] [place] [address] PCP - General 01/18/19 Donte Campuzano MD [address] [facility] [address] [place] [address] Consulting Physician Pulmonary Disease 05/22/22
--- OUTSIDE RECORDS SUMMARY | 2024-04-02 18:39 | XMS_ITS | Encounter Summary ---
Author Organization [facility] Healthcare Address [address] [place] [address] Care Team Providers Care Implementation Engineer Name Role Phone Bouchra Vickers MD Primary Care Provider [phone] Reason for Referral * Diagnostic Imaging (Routine) - Closed Specialty Diagnoses / Procedures Referred By Fernando lewis Referred To Contact Diagnoses Encounter for screening mammogram for malignant neoplasm of breast Procedures Screening Mammogram Bilateral W Richi Screening Mammogram 2D Bilateral Praveen Marie MD [address] [place] [address] [address] [place] [address] Phone: tel: fax: [address] [phone] Referral ID Status Reason Start Date Expiration Date Visits Re quested Visits Authorized [id number] Closed 04/06/2021 05/06/2022 1 1 Reason for Visit * Diagnostic Imaging (Routine) - Closed Specialty Diagnoses / Procedures Referred By Fernando lewis Referred To Contact Diagnoses Encounter for screening mammogram for malignant neoplasm of breast Procedures Screening Mammogram Bilateral W Richi Screening Mammogram 2D Bilateral Praveen Marie MD [facility] [address] [place] [address] Phone: tel: fax: [address] [phone] Referral ID Status Reason Start Date Expiration Date Visits Re quested Visits Authorized [id number] Closed 04/06/2021 05/06/2022 1 1 Encounter Details Date Type Department Care Team (Latest Contact Info) Description 06/21/2021 2:45 PM CDT - 06/21/2021 11:59 PM CDT Hospital Encounter [facility] B[facility] [address] [place] [address] Encounter for screening mammogram for malignant neoplasm of breast Discharge Disposition: Discharge to home or self care Social History Tobacco Use Types Packs/Day Years Used Date Smoking Tobacco: Never Comments No Sex and Gender Information Value Date Recorded Sex Assigned at Not on file Legal Sex 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 Gender Identity Not on file Sexual Orientation Not on file documented as of this encounter Medications at Time of Discharge FLUoxetine (PROzac) 60 mg tablet Take 1 tablet (60 mg total) by mouth product safety coordinator 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 metoprolol XL (TOPROL-XL) 50 mg extended release tablet Take 1 tablet (50 mg total) by mouth daily nitroglycerin (NITROSTAT) 0.4 mg SL tablet For esophageal spasms only polyethylene glycol (MIRALAX) 17 gram/dose powder 04/24/2012 baclofen (LIORESAL) 10 mg tablet 3 (three) times a day 4 estradioL (VIVELLE-DOT) 0.05 mg/24 hrIndications:Me nopausal symptoms Place 1 patch on the skin once a week Apply patch twice weekly. 24 patch 3 05/18/2021 4 miSOPROStoL (CYTOTEC) 200 mcg tablet misoprostol 200 mcg tablet 3 documented as of this encounter Discharge Disposition Disposition Code Departure Means Destination Discharge to home or self care documented in this encounter Plan of Treatment Not on file documented as of this encounter Procedures Procedure Name Priority Date/Time Associated Diagnosis Comments SCREENING MAMMOGRAM BILATERAL W RICHI Schedule Routine, Read Routine (OP Routine) 06/21/2021 3:05 PM CDT Encounter for screening mammogram for malignant neoplasm of breast documented in this encounter Results * Screening Mammogram Bilateral W Richi (06/21/2021 [...] age 40, based on guidelines of the [place] [employer] (ACR Practice Parameter for the Performance of Screening and Diagnostic Mammography) and [place] [employer]. For women [...] MD IMG MAMMO PROCEDURES Fi nal Result documented in this encounter Visit Diagnoses Diagnosis Encounter for screening mammogram for malignant neoplasm of breast documented in this encounter Additional Health Concerns Infection Onset Date Last Indicated Resolved Time COVID: Recovered Comment:Added based on recent COVID infection. 04/23/2021 04/27/2021 08/21/2021 3:07 AM C DT documented as of this encounter Care Teams Implementation Engineer Relationship Specialty Start Date End Date Bouchra Vickers MD [address] [place] [address] PCP - General 01/18/19 documented as of this encounter
--- OUTSIDE RECORDS SUMMARY | 2024-04-02 18:39 | XMS_ITS | Encounter Summary ---
Author Organization [facility] Address [address] [facility] [address] [place] [address] Care Team Providers Care Trauma Director Name Role Phone Bouchra Vickers MD Primary Care Provider [phone] Sultan Elvin Mccartney MD Unavailable [phone] Donte Campuzano MD Unavailable [phone] Reason for Visit * Reason Onset Date Comments Medical Question/Miscellaneous 05/28/2022 Encounter Details Date Type Department Care Team (Late st Contact Info) Description 05/28/2022 Telephone [facility] Pulmonology [address] [facility] [address] [place] [address] Kristie Vale MA Medical Question/Miscellaneous Social History Tobacco Use Types Packs/Day Years Used Date Smoking Tobacco: Never Comments No Sex and Gender Information Value Date Recorded Sex Assigned at Not on file Legal Sex Female 10:19 AM CORROSION CONTROL TECHNICIAN Gender Identity Not on file Sexual Orientation Not on file documented as of this encounter Ordered Prescriptions Prescription Sig Dispense Quantity Refills Last Filled Start Date End Date ipratropium (ATROVENT HFA) 17 mcg/actuation inhaler Inhale 0.129 g (2 puffs total) 4 (four) times a day 12.9 g 3 05/28/2022 06/17/2023 documented in this encounter Miscellaneous Notes * Telephone Encounter - Kristie Vale MA - 05/28/2022 4:56 PM CORROSION CONTROL TECHNICIAN Patient informed, sent medication to pharmacy. OSION CONTROL TECHNICIAN * Telephone Encounter - Kristie Vale MA - 05/28/2022 3:53 PM CORROSION CONTROL TECHNICIAN Is the going to continue with Albuterol PRN also? OSION CONTROL TECHNICIAN * Telephone Encounter - Donet Campuzano MD - 05/28/2022 1:23 PM CORROSION CONTROL TECHNICIAN OK for Atrovent VINAYAK 2 puffs qid prn dyspnea OSION CONTROL TECHNICIAN * Telephone Encounter - Kristie Vale MA - 05/28/2022 12:46 PM CORROSION CONTROL TECHNICIAN Patient called in stating that Spiriva Respimat is too expensive. Please advise. OSION CONTROL TECHNICIAN documented in this encounter Plan of Treatment Not on file documented as of this encounter Visit Diagnoses Not on filedocumented in this encounter Discontinued Medications Medication Sig Discontinue Reason Start Date End Da te tiotropium bromide (SPIRIVA RESPIMAT) 2.5 mcg/actuation inhaler Inhale 2 puffs daily Alternate therapy 05/22/2022 05/28/2022 documented as of this encounter Care Teams Trauma Director Relationship Specialty Start Date End Date Bouchra Vickers MD [address] [address] PCP - General 01/18/19 Sultan Elvin Mccartney MD [address] [facility] [address] [address] Consulting Physician Cardiovascular Disease 05/22/22 Donte Campuzano MD [address] [facility] [address] [place] [address] Consulting Physician Pulmonary Disease 05/22/22 documented as of this encounter
--- OUTSIDE RECORDS SUMMARY | 2024-04-02 18:39 | XMS_ITS | Encounter Summary ---
Author Organization [facility] Address [address] [place] [address] Care Team Providers Care Flat Sheet Maker Name Role Phone Bouchra Vickers MD Primary Care Provider [phone] Sultan Elvin Mccartney MD Unavailable [phone] Donte Campuzaon MD Unavailable [phone] Reason for Visit * Reason Comments Shortness of Breath * Auth/Cert (Routine) Specialty Diagnoses / Procedures Referred By Contac t Referred To Contact Diagnoses Shortness of breath Acute bronchitis, unspecified organism Pulmonary emphysema, unspecified emphysema type (HCC) Procedures NA Referral ID Status Reason Start Date Expiration Date Visits Re quested Visits Authorized [id number] 1 1 Encounter Details Date Type Department Care Team (Latest Contact Info) Description 05/18/2022 9:12 PM SOUND RECORDING TECHNICIAN - 05/22/2022 1:15 PM SOUND RECORDING TECHNICIAN Hospital Encounter [address] [address] Wilmar Luna MD [address] [place] [id number] Rosalinda Fraser MD [address] [place] [address] [phone] [place] [phone] [address] [place] Miguelina Perea MD [address] [place] [address] Shortness of breath (Primary Dx); Acute bronchitis, unspecified organism; Pulmonary emphysema, unspecified emphysema type (HCC) Discharge Disposition: Discharge to home or self care Social History Tobacco Use Types Packs/Day Years Used Date Smoking Tobacco: Never Comments No Sex and Gender Information Value Date Recorded Sex Assigned at Not on file Legal Sex Female 10:19 AM SOUND RECORDING TECHNICIAN Gender Identity Not on file Sexual Orientation Not on file documented as of this encounter Last Filed Vital Signs Vital Sign Reading Time Taken Comments Blood Pressure 109/68 05/22/2022 11:20 AM SOUND RECORDING TECHNICIAN Pulse 80 05/22/2022 11:20 AM SOUND RECORDING TECHNICIAN Temperature 36.8 ??C (98.2 ??F) 05/22/2022 11:[address] Respiratory Rate 16 05/22/2022 11:20 AM SOUND RECORDING TECHNICIAN Oxygen Saturation 94% 05/22/2022 11:20 AM SOUND RECORDING TECHNICIAN Inhaled Oxygen Concentration - - Weight 49 kg (108 lb) 05/18/2022 9:17 PM SOUND RECORDING TECHNICIAN Height - - Body Mass Index 19.14 08/03/2021 10:07 AM CDT documented in this encounter Discharge Summaries * Miguelina Ruggiero MD - 05/22/2022 9:20 AM CST Inpatient Discharge Summary Patient Name - Leslie Gama Patient Age - 56 yrs Patient - [id number] [facility] - [id number] Document Creation Date: 05/22/2022 Admitting Provider, MD: Rosalinda Fraser MD Discharge Provider, : Miguelina Ruggiero MD Primary Care Physician at Discharge: Bouchra Vickers MD [phone] Admission Date: 05/18/2022 Discharge Date/time: Admission Location: [facility] LOS - LOS: 3 days DETAILS OF HOSPITAL STAY Hospital Problems/Diagnoses Principal Problem: Shortness of breath Active Problems: Mitral valve prolapse Acute respiratory failure with hypoxia (CMS/HCC) (HCC) Bronchitis with acute wheezing Mucus plugging of bronchi Reason for Hospitalization: 56 y.o. female with a PMHx significant for mitral valve prolapse and esophageal spasm. Patient states that she began feeling unwell on Friday with a sore throat. She wokeup on Friday and noticed that she was short of breath as she was getting dressed for work. She stayed home from work on Friday and felt somewhat better so she went back to work on , butwhen she walked up the 2 flights of stairs to her office she was extremely short of breath and feltpanicked. She went to urgent care where she received a breathing treatment and a chest x-ray. She stated that she felt better after the breathing treatment but was referred to the emergency department from urgent care due to an abnormal chest x-ray. She states that she waited in the emergency department for about 2.5 hours but felt better and did not feel ???sick enough?? to be in the emergency department and left before being seen. She stated that she had intended to call her PCP on Friday and schedule an outpatient CT but overnight last night became extremely short of breath and felt as though she could not get ???enough air?? . She presented to the emergency department where she was found to have an SpO2 of 78% in triage, she was immediately placed on 4 L O2 per nasal cannula and states that she feels better after breathing treatments, steroids, and oxygen. On interview and exam sheis resting comfortably on 2 L O2 per nasal cannula and states that she feels better but is still short of breath with any exertion. Lab evaluation demonstrated a white blood cell count of 12. D-dimerwas minimally elevated at 120, CT of the chest per PE protocol was negative for acute PE but did show bronchitis with multifocal bilateral mucus plugging. Hospital Course: Patient presented with acute respiratory failure with hypoxia secondary to COPD exacerbation and infectious bronchitis. Patient was started on IV ceftriaxone and azithromycin for infectious bronchitis. She was started on IV Solu-Medrol and DuoNebs for COPD exacerbation. Patient wasseen by Pulmonary consult. Patient had mildly elevated troponin and was seen by Cardiology consult.ACS ruled out. Echocardiogram showed ejection fraction of 55-60% with grade 1 diastolic dysfunction. Cardiology recommended further workup as outpatient. Patient's respiratory status improved and shewas weaned off of oxygen. She completed 4 days of IV ceftriaxone and 3 days of azithromycin in the hospital. Patient was cleared to be discharged by Pulmonary consult. Patient will be discharged to follow-up with Pulmonary as outpatient on oral cefdinir for 5 more days. Discharge Details Physical Exam at Discharge: Discharge Condition: stable Pulse: 97 Resp: 16 BP: 115/77 Temp: 36.7 ??C (98.1 ??F) Weight: 49 kg (108 lb) Pertinent Exam Findings at Discharge: Physical Exam Constitutional: Patient is awake alert, no acute distress. Skin: Warm, dry, no rashes in visible areas. Eyes: Equal, round and reactive, conjunctiva clear. ENT: Good dentition, oropharynx clear. Neck: Trachea midline, no masses or thyromegaly. Respiratory: Unlabored respirations, lungs clear to auscultation, no wheezes, no rhonchi, no crackles. Cardiovascular: Normal S1, S2, no murmurs. Abdomen: Soft, non tender, no obvious masses noted, bowel sounds + Neuro: No gross focal deficits. Psych: Alert and oriented x3, normal affect. Extremities: No edema. Musculoskeletal: No obvious joint deformities noted. Gait: Not assessed. Discharge Disposition: Code Status at Discharge: Full Code Active Issues & Recommended Plan for Follow-up: CT chest showed 7 mm indeterminate pulmonary nodule in the anterolateral right lower lobe. A CT chest is recommended in 6 months for follow-up. Allergies: Adhesive, Sumatriptan, and Zolmitriptan Discharge Medications: Your medication list START taking these medications Instructions Last Dose Given Next Dose Due albuterol HFA 90 mcg/actuation inhaler Commonly known as: PROVENTIL HFA,VENTOLIN HFA,PROAIR HFA 2 puffs, inhalation, Every 4 hours PRN azithromycin 500 mg tablet Commonly known as: ZITHROMAX 500 mg, oral, Once budesonide-formoteroL 160-4.5 mcg/actuation inhaler Commonly known as: SYMBICORT 2 puffs, inhalation, 2 times daily, Rinse mouth with water after use. Do not swallow. cefdinir 300 mg capsule Commonly known as: OMNICEF Start taking on: May 23, 2022 300 mg, oral, 2 times daily guaiFENesin ER 600 mg 12 hr tablet Commonly known as: MUCINEX 600 mg, oral, [address] 40 mg EC tablet Commonly known as: PROTONIX Start taking on: May 23, 2022 40 mg, oral, Daily predniSONE 20 mg tablet Commonly known as: DELTASONE Start taking on: May 23, 2022 40 mg, oral, Daily predniSONE 10 mg tablet Commonly known as: DELTASONE Start taking on: May 24, 2022 30 mg, oral, Daily predniSONE 20 mg tablet Commonly known as: DELTASONE Start taking on: May 26, 2022 20 mg, oral, Daily predniSONE 10 mg tablet Commonly known as: DELTASONE Start taking on: May 28, 2022 10 mg, oral, Daily predniSONE 10 mg tablet Commonly known as: DELTASONE Start taking on: May 29, 2022 10 mg, oral, Daily tiotropium bromide 2.5 mcg/actuation inhaler Doctor's comments: Please give 1 inhaler Commonly known as: SPIRIVA RESPIMAT 2 puffs, inhalation, Daily CONTINUE taking these medications Instructions Last Dose Given Next Dose Due baclofen 10 mg tablet Commonly known as: LIORESAL 3 times daily estradioL 0.05 mg/24 hr Commonly known as: VIVELLE-DOT 1 patch, transdermal, Weekly, Apply patch twice weekly. FLUoxetine 60 mg tablet Commonly known as: PROzac fluoxetine 60 mg tablet metoprolol XL 50 mg extended release tablet Commonly known as: TOPROL-XL Rx: Metoprolol Succinate miSOPROStoL 200 mcg tablet Commonly known as: CYTOTEC misoprostol 200 mcg tablet nitroglycerin 0.4 mg SL tablet Commonly known as: NITROSTAT nitroglycerin 0.4 mg sublingual tablet polyethylene glycol 17 gram/dose powder Commonly known as: MIRALAX Miralax 17 gram/dose oral powder Dissolve 1 capful(s) in 8 ounces of water and drink daily Where to Get Your Medications These medications were sent to [id number] - [place], [place] - [address] [facility] [id number] albuterol HFA 90 mcg/actuation inhaler azithromycin 500 mg tablet budesonide-formoteroL 160-4.5 mcg/actuation inhaler cefdinir 300 mg capsule guaiFENesin ER 600 mg [address] 40 mg EC tablet predniSONE 10 mg tablet predniSONE 10 mg tablet predniSONE 10 mg tablet predniSONE 20 mg tablet predniSONE 20 mg tablet tiotropium bromide 2.5 mcg/actuation inhaler Time Spent in Discharge Process: I have spent 35 minutes on discharge planning activities. Time spent was on Coordination of care Test Results Pending at Discharge (If Blank, None Found): Pending Labs Order Current Status Magnesium In process Operative Procedures Performed (If Blank, None Found): Outpatient Follow-Up: Contact Information for Follow-ups Sultan Elvin Mccartney MD Specialty: Cardiovascular Disease, Internal Medicine, Family Medicine, Cardiology [address] [place] [address] [address] Next Steps: Follow up in 2 month(s) Bouchra Vickers MD Specialty: Family Medicine Relationship: PCP - General [facility] [address] [address] Next Steps: Follow up in 1 week(s) Please schedule an appointment with the following provider(s): Sultan Elvin Mccartney MD [address] [place] [address] [address] Follow up in 2 month(s) Bouchra Vickers MD [address] [address] Follow up in 1 week(s) ANCILLARY INFORMATION Other Procedures & Diagnostic Tests: XR Chest 1 Vw Portable Result Date: 05/18/2022 EXAM DESCRIPTION: XR CHEST 1 VIEW REASON FOR STUDY: Shortness of breath sob since Friday. Hx mitral valve prolapse. Denies hx copd, asthma. states that she has a history of MVP however has not been evaluated for a long time. Patient denies any fevers or chills per patient denies any productive coughing TECHNIQUE: Single radiographic view of the chest acquired. COMPARISON: None FINDINGS: LUNGS/PLEURA: No focal consolidation or pneumothorax. No pleural effusion. HEART/MEDIASTINUM: Heart size is normal. Normal mediastinal and hilar contours. HARDWARE/LINES/TUBES: None. BONES: No acute findings.OTHER: No other significant finding. IMPRESSION: No acute cardiopulmonary abnormality. THIS IS AN ELECTRONICALLY VERIFIED FINAL REPORT 05/18/2022 10:24 PM - Electronically signed by Jamal Henriquez M.D. BB T: Report ID: [id number] Reading Location: [id number] CT Chest PE (CTA) W Contrast Result Date: 05/18/2022 EXAM DESCRIPTION: CT CHEST PE (CTA) W CONTRAST REASON FOR STUDY: Shortness of breath, mid chest pressure for 3 days. TECHNIQUE: CT angiogram of the chest performed with intravenous contrast using helical scanning technique with dynamic intravenous contrast injection. Reconstructed coronal and sagittal MPR images reviewed. All images stored on PACS. 3D MIP images rendered on scanning unit and reviewed at time of interpretation. Automated exposure control was used as a dose optimization techniquefor this examination. CONTRAST TYPE/DOSE: 80mL of IOVERSOL 350 MG IODINE/ML INTRAVENOUS SYRINGE injected via intravenous COMPARISON: Chest x-ray today , CT abdomen and pelvis 02/16/2010 REFERENCE: Per ACR white paper recommendations, unless otherwise specified no follow-up imaging is recommended for incidental renal and adrenal lesions per consensus recommendations based on imaging criteria. Further lab evaluation could be pursued based on clinical findings. FINDINGS: VASCULATURE: No evidence of pulmonary embolus. Normal caliber pulmonary arteries and thoracic aorta. LUNGS: Mild bilateral centrilobular emphysema. Mild diffuse bronchial wall thickening in both lungs, compatible with bronchitis. Moderate multifocal mucous plugging in the bilateral lower lobes, and mild mucous plugging in the peripheral upper lobes. 7 mm indeterminate pulmonary nodule in the anterolateral right lower lobe axial image 106 of 170. Adjacent 4 mm nodule on axial image 102 of 170. These are new compared to 02/16/2010. Follow-up chest CT in 6 months is recommended per Fleischner criteria. Mucous plugging ininferolateral right lower lobe axial images 111-119 of 170, compatible with a mucocele. Mild atelectasis or scarring in the adjacent posterolateral right lower lobe. PLEURA: No effusion. No pneumothorax. MEDIASTINUM/DEJA: No identified masses or abnormal nodes. HEART: Heart size is normal with no pericardial effusion. AXILLA: No adenopathy. CHEST WALL: No masses. No subcutaneous air. HARDWARE/LINES/TUBES: None. UPPER ABDOMEN: Cholecystectomy. Pneumobilia. MUSCULOSKELETAL: No significant abnorma lity. OTHER: No significant abnormality. IMPRESSION: No evidence of pulmonary embolus 7 mm indeterminate pulmonary nodule in the anterolateral right lower lobe axial image 106 of 170. Adjacent 4 mm nodule axial image 102. These are new compared to prior CT 02/16/2010. Suggest follow-up chest CT in 6 months per Fleischner criteria. Mild bilateral emphysema. Bronchial wall thickening bilaterally, compatible with bronchitis. Multifocal bilateral mucous plugging as described. THIS IS AN ELECTRONICALLY VERIFIED FINAL REPORT 05/18/2022 10:32 PM - Electronically signed by Enmanuel PECK T: Report ID: [id number] Reading Location: [id number] Recent Labs: Recent Labs Lab Units 05/22/2252305/21/2281105/20/22526 WBC K/cumm 9.9 9.7 12.9* HEMOGLOBIN g/dL 13.3 13.3 13.0 HEMATOCRIT % 39.9 40.1 39.2 PLATELETS K/cumm 250 255 268 Recent Labs Lab Units 05/22/2252305/21/2281105/20/22526 WBC K/cumm 9.9 9.7 12.9* HEMOGLOBIN g/dL 13.3 13.3 13.0 HEMATOCRIT % 39.9 40.1 39.2 PLATELETS K/cumm 250 255 268 NEUTROS PCT % 64.5 63.3 85.0 LYMPHS PCT % 24.2 26.0 9.5 MONOS PCT % 6.8 6.2 4.6 EOS PCT % 3.5 2.8 0.2 Recent Labs Lab Units 05/22/2252305/21/2281105/20/2252605/18/222109 SODIUM mmol/L 138 136 136 141 POTASSIUM PLASMA mmol/L 4.0 3.9 4.5 3.8 CHLORIDE mmol/L 100 98 99 103 CO2 mmol/L 29 27 28 26 BUN SERUM mg/dL 13 14 10 11 CREATININE mg/dL 0.80 0.70 0.60 0.70 [id number] mL/min/1.73 m2 85 100 104 100 GLUCOSE mg/dL 90 83 110 132 CALCIUM mg/dL 9.4 9.4 9.5 10.2 ALBUMIN g/dL -- -- -- 4.8 Recent Labs Lab Units 05/22/2252305/21/2281105/20/2252605/18/222109 SODIUM mmol/L 138 136 136 141 POTASSIUM PLASMA mmol/L 4.0 3.9 4.5 3.8 CHLORIDE mmol/L 100 98 99 103 CO2 mmol/L 29 27 28 26 ANIONGAP mmol/L 9 11 9 12 GLUCOSE mg/dL 90 83 110 132 BUN SERUM mg/dL 13 14 10 11 CREATININE mg/dL 0.80 0.70 0.60 0.70 CALCIUM mg/dL 9.4 9.4 9.5 10.2 ALBUMIN g/dL -- -- -- 4.8 ALK PHOS Units/L -- -- -- 67 ALT Units/L -- -- -- 17 AST Units/L -- -- -- 17 BILIRUBIN TOTAL mg/dL -- -- -- <0.2 Recent Labs Lab Units 05/18/22 2110 ALK PHOS Units/L 67 BILIRUBIN TOTAL mg/dL <0.2 TOTAL PROTEIN g/dL 7.7 ALT Units/L 17 AST Units/L 17 Recent Labs Lab Units 05/20/22 0527 05/18/220 MAGNESIUM mg/dL 2.2 2.1 Recent Labs Lab Units 05/18/22 2155 PH ART 7.37 PCO2 ART mmHg 45 PO2 ART mmHg 89 BASE EXC ART mmol/L 0 HCO3 ART (CALC) mmol/L 26 O2 SAT ART (STACY) % 98* Lab Results Component Value Date GLUCOSE 90 05/22/2022 GLUCOSE 83 05/21/2022 GLUCOSE 110 05/20/2022 Implant: Implants No active implants to display in this view. General Precautions (If Blank, None Found): Isolation Status: No active isolations Nutritional Status and in-house recommendations: Dietary Orders (From admission, onward) Start Ordered 05/19/22 0448 Adult Diet Regular Diet effective now Question: (MHB/MHE) Diet type Answer: Regular 05/19/22 7999 Anticoagulation Indication: INR: No results found for requested labs within last 720 hours. Warfarin Administrations (last 168 hours) None Oxygen Status: O2 Therapy for the past 12 hrs: O2 Therapy 05/22/22 0819 None (Room air) 05/22/22 0745 None (Room air) 05/22/22 0354 None (Room air) 05/21/22 2334 None (Room air) 05/21/22 2204 None (Room air) Wound Care Instructions Other Instructions Call provider for: Temperature -Temperature greater than 101 degrees F Call provider for: difficulty breathing or chest pain Call provider for: persistent dizziness or light-headedness Call provider for: redness, tenderness, or signs of infection (pain, swelling, redness, odor or green/yellow discharge around incision site) Call provider for: headache, visual disturbances, weakness and speech changes Active LDAs (If Blank, None Found): Peripheral IV 05/20/22 22 G Right Antecubital (Active) Placement Date/Time: 05/20/22 1205 Size (Gauge): 22 G Location Orientation: Right Location: Antecubital Patient Emergency Contact: Primary Emergency Contact: Jose Gama, Immunization Status at Discharge There is no immunization history on file for this patient. Miguelina Macdonald MD D RECORDING TECHNICIAN documented in this encounter Medications at Time of Discharge albuterol HFA (PROVENTIL HFA,VENTOLIN HFA,PROAIR HFA) 90 mcg/actuation inhaler Inhale 2 puffs every 4 (four) hours as needed for wheezing 1 each 05/22/2022 FLUoxetine (PROzac) 60 mg tablet Take 1 tablet (60 mg total) by mouth early childhood coordinator 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 metoprolol XL (TOPROL-XL) 50 mg extended release tablet Take 1 tablet (50 mg total) by mouth daily nitroglycerin (NITROSTAT) 0.4 mg SL tablet For esophageal spasms only polyethylene glycol (MIRALAX) 17 gram/dose powder 04/24/2012 azithromycin (ZITHROMAX) 500 mg tabletIndications :Pneumonia, Community Acquired Take 1 tablet (500 mg total) by mouth once for 1 dose 1 tablet 05/22/2022 3 cefdinir (OMNICEF) 300 mg capsuleIndication s:Pneumonia, Community Acquired Take 1 capsule (300 mg total) by mouth 2 (two) times a day for 10 doses 10 capsule 05/23/2022 3 predniSONE (DELTASONE) 10 mg tablet Take 3 tablets (30 mg) by mouth daily for 2 doses 6 tablet 05/24/2022 3 predniSONE (DELTASONE) 10 mg tablet Take 1 tablet (10 mg) by mouth daily for 1 dose 1 tablet 05/28/2022 3 predniSONE (DELTASONE) 10 mg tablet Take 1 tablet (10 mg) by mouth daily for 1 dose 1 tablet 05/29/2022 3 predniSONE (DELTASONE) 20 mg tablet Take 2 tablets (40 mg) by mouth daily for 1 dose 2 tablet 05/23/2022 3 predniSONE (DELTASONE) 20 mg tablet Take 1 tablet (20 mg) by mouth daily for 2 doses 2 tablet 05/26/2022 3 baclofen (LIORESAL) 10 mg tablet 3 (three) times a day 4 budesonide-formot Samanta (SYMBICORT) 160-4.5 mcg/actuation inhaler Inhale 2 puffs 2 (two) times a day Rinse mouth with water after use. Do not swallow. 1 each 05/22/2022 3 estradioL (VIVELLE-DOT) 0.05 mg/24 hrIndications:Men opausal symptoms Place 1 patch on the skin once a week Apply patch twice weekly. 24 patch 3 05/18/2021 4 guaiFENesin ER (MUCINEX) 600 mg 12 hr tablet Take 1 tablet (600 mg total) by mouth 2 (two) times a day for 7 days 14 tablet 05/22/2022 4 miSOPROStoL (CYTOTEC) 200 mcg tablet misoprostol 200 mcg tablet [address] (PROTONIX) 40 mg EC tabletIndications :Stress Ulcer Prophylaxis Take 1 tablet (40 mg total) by mouth daily for 14 days 14 tablet 05/23/2022 3 tiotropium bromide (SPIRIVA RESPIMAT) 2.5 mcg/actuation inhaler Inhale 2 puffs daily 1 g 05/22/2022 3 documented as of this encounter Ordered Prescriptions Prescription Sig Dispense Quantity Refills Last Filled Start Date End Date albuterol HFA (PROVENTIL HFA,VENTOLIN HFA,PROAIR HFA) 90 mcg/actuation inhaler Inhale 2 puffs every 4 (four) hours as needed for wheezing 1 each 05/22/2022 tiotropium bromide (SPIRIVA RESPIMAT) 2.5 mcg/actuation inhaler Inhale 2 puffs daily 1 g 05/22/2022 3 predniSONE (DELTASONE) 10 mg tablet Take 1 tablet (10 mg) by mouth daily for 1 dose 1 tablet 05/29/2022 3 predniSONE (DELTASONE) 10 mg tablet Take 1 tablet (10 mg) by mouth daily for 1 dose 1 tablet 05/28/2022 3 predniSONE (DELTASONE) 20 mg tablet Take 1 tablet (20 mg) by mouth daily for 2 doses 2 tablet 05/26/2022 3 predniSONE (DELTASONE) 10 mg tablet Take 3 tablets (30 mg) by mouth daily for 2 doses 6 tablet 05/24/2022 3 predniSONE (DELTASONE) 20 mg tablet Take 2 tablets (40 mg) by mouth daily for 1 dose 2 tablet 05/23/[address] (PROTONIX) 40 mg EC tabletIndications: Stress Ulcer Prophylaxis Take 1 tablet (40 mg total) by mouth daily for 14 days 14 tablet 05/23/2022 3 guaiFENesin ER (MUCINEX) 600 mg 12 hr tablet Take 1 tablet (600 mg total) by mouth 2 (two) times a day for 7 days 14 tablet 05/22/2022 4 cefdinir (OMNICEF) 300 mg capsuleIndications :Pneumonia, Community Acquired Take 1 capsule (300 mg total) by mouth 2 (two) times a day for 10 doses 10 capsule 05/23/2022 3 budesonide-formote roL (SYMBICORT) 160-4.5 mcg/actuation inhaler Inhale 2 puffs 2 (two) times a day Rinse mouth with water after use. Do not swallow. 1 each 05/22/2022 3 azithromycin (ZITHROMAX) 500 mg tabletIndications: Pneumonia, Community Acquired Take 1 tablet (500 mg total) by mouth once for 1 dose 1 tablet 05/22/2022 3 documented in this encounter Discharge Disposition Disposition Code Departure Means Destination Comment s Discharge to home or self care documented in this encounter Progress Notes * Donte Campuzano MD - 05/22/2022 6:12 AM CST Progress Note Patient: Leslie Gama ( - 1965) is a 56 y.o. female. Visit Date: 05/22/2022 Chief Complaint Patient presents with Shortness of Breath History of Present Illness: The patient states that her breathing is improving. She did have a coughing episode overnight and her cough is predominantly dry. Her PFTs revealed evidence of stage III COPD at baseline but she had a marked bronchodilator response following the albuterol. She denies headache, nausea, vomiting or diarrhea. She would like to go home today. Past Medical History: Past Medical History: Diagnosis Date Esophageal spasm IBS (irritable bowel syndrome) Migraine no longer Mitral valve prolapse Mood disorder (CMS/HCC) (HCC) Surgical History: Past Surgical History: Procedure Laterality Date BLADDER SUSPENSION CHOLECYSTECTOMY HYSTERECTOMY Current Medications: Current Facility-Administered Medications Medication Dose Route Frequency Provider Last Rate Last Admin acetaminophen (TYLENOL) tablet 650 mg 650 mg oral Q4H PRN Rosalinda Fraser MD 650 mg at 05/19/22 1606 azithromycin (ZITHROMAX) tablet 500 mg 500 mg oral Once Heather Alberto NP baclofen (LIORESAL) tablet 10 mg 10 mg oral TID PRN Heather Alberto NP Carrier Fluids for Secondary Infusion - 0.9% Sodium Chloride 30 mL intravenous PRN Rosalinda Fraser MD cefTRIAXone (ROCEPHIN) 2,000 mg/20 mL in sterile water (premix) 2,000 mg 2,000 mg intravenous Q24H [facility] Heather Alberto NP 2,000 mg at 05/20/22 0817 enoxaparin (LOVENOX) syringe 30 mg 30 mg subcutaneous Daily-2100 Rosalinda Fraser MD 30 mg at 05/21/222022 FLUoxetine (PROzac) capsule 60 mg 60 mg oral Daily Rosalinda Fraser MD 60 mg at 05/20/22 0811 guaiFENesin ER (MUCINEX) extended release tablet 600 mg 600 mg oral BID Heather Alberto NP 600 mg at 05/21/222022 ipratropium-albuteroL (DUO-NEB) 0.5-2.5 mg/3 mL nebulizer solution 3 mL 3 mL nebulization BID (RT) Donte Campuzano MD 3 mL at 05/21/22 2204 methylPREDNISolone sodium succinate (SOLU-medrol) preservative free injection 40 mg 40 mg intravenous Q24H [facility] Vic Luna MD 40 mg at 05/20/22 0811 metoprolol XL (TOPROL-XL) extended release tablet 50 mg 50 mg oral Daily Rosalinda Fraser MD 50 mgat 05/20/22 0811 ondansetron ODT (ZOFRAN-ODT) disintegrating tablet 4 mg 4 mg oral Q6H PRN Rosalinda Fraser MD Or ondansetron (ZOFRAN) injection 4 mg 4 mg intravenous Q6H PRN Rosalinda Fraser MD pantoprazole DR (PROTONIX) extended release tablet 40 mg 40 mg oral Daily Rosalinda Fraser MD polyethylene glycol (MIRALAX) packet 17 g 17 g oral Daily PRN Rosalinda Fraser MD sodium chloride 0.9% flush 0.5-20 mL 0.5-20 mL intra-catheter Q8H [facility] Rosalinda Fraser MD 10 mL at05/22/22 0558 sodium chloride 0.9% flush 0.5-20 mL 0.5-20 mL intra-catheter PRN Rosalinda Fraser MD Allergies: Allergies Allergen Reactions Adhesive Rash red rash, burning Sumatriptan Anaphylaxis Reaction: ANAPHYLAXIS Zolmitriptan Other (See comments) Reaction: Throat Swelling, Family History: Family History Problem Relation Age of Onset Hypertension Mother Family history of hypertension - (Added by NOEMI Conv) Diabetes Mother Family history of diabetes mellitus - (Added by NOEMI Conv) Breast cancer Neg Hx Ovarian cancer Neg Hx Social History: Social History Tobacco Use Smoking status: Never Smokeless tobacco: Not on file Substance and Sexual Activity Drug use: Yes Types: Marijuana Comment: gummys Sexual activity: Yes Partners: Male control/protection: Hysterectomy Alcohol Use: Not on file Review of Systems: Review of Systems Constitutional: Negative for appetite change, fever and unexpected weight change. HENT: Negative for rhinorrhea, sinus pressure, sinus pain, sore throat and tinnitus. Respiratory: Positive for cough. Negative for shortness of breath and wheezing. Cardiovascular: Negative for chest pain, palpitations and leg swelling. Gastrointestinal: Negative for abdominal pain, diarrhea and nausea. Genitourinary: Negative for hematuria. Musculoskeletal: Negative for arthralgias, back pain and myalgias. Skin: Negative for color change. Allergic/Immunologic: Negative for environmental allergies and food allergies. Neurological: Negative for dizziness and light-headedness. Physical Exam: Vitals: 05/21/22 1918 05/21/22 2204 05/21/22 2334 05/22/22 0354 BP: 129/68 121/71 114/65 BP Location: Right arm Right arm Right arm Patient Position: HOB 30 degrees Lying Lying Pulse: 83 78 70 Resp: 16 18 18 Temp: 36.8 ??C (98.3 ??F) 36.8 ??C (98.3 ??F) 36.3 ??C (97.3 ??F) TempSrc: Oral Oral Oral SpO2: 94% 94% 93% 95% Weight: Physical Exam Constitutional: Appearance: She is well-developed. HENT: Head: Normocephalic and atraumatic. Eyes: Pupils: Pupils are equal, round, and reactive to light. Cardiovascular: Rate and Rhythm: Normal rate and regular rhythm. Pulmonary: Effort: Pulmonary effort is normal. Breath sounds: Decreased breath sounds present. No wheezing, rhonchi or rales. Abdominal: General: Bowel sounds are normal. Palpations: Abdomen is soft. Musculoskeletal: General: Normal range of motion. Cervical back: Normal range of motion and neck supple. Skin: General: Skin is warm and dry. Neurological: Mental Status: She is alert and oriented to person, place, and time. Data Reviewed Images: Chest CT angiogram 05/18/2022 IMPRESSION: No evidence of pulmonary embolus 7 mm indeterminate pulmonary nodule in the anterolateral right lower lobe axial image 106 of 170. Adjacent 4 mm nodule axial image 102. These are new compared to prior CT 02/16/2010. Suggest follow-up chest CT in 6 months per Fleischner criteria. Mild bilateral emphysema. Bronchial wall thickening bilaterally, compatible with bronchitis. Multifocal bilateral mucous plugging as described. Assessment and Plan: 1.) Acute hypoxemic respiratory failure-Her saturations have ranged between 93- 95% overnight on room air.. 2.) Asthma/COPD exacerbation-The patient does have emphysematous changes on the CT but never smoked. She was exposed to secondhand smoke from her and parents. Her alpha-1 antitrypsin level was normal. She is stable from my viewpoint to discharge home. I will switch her to Omnicef 300 mg p.o. b.i.d. for 5 more days. I will also begin a prednisone taper. She should continue with Symbicort 160/4.52 puffs b.i.d. at home in addition to Spiriva Respimat 2 puffs daily and use albuterol MDI 2 puffs q.i.d. p.r.n.. She should follow-up with me in the pulmonary office in 2 weeks. 3.) Pulmonary nodules-These can be followed with serial chest CTs. Rendering Provider & Department: Donte Campuzano MD D RECORDING TECHNICIAN * Sultan Elvin Mccartney MD - 05/21/2022 5:22 PM CST +Patient ID: Leslie Gama is a 56 y.o. female. Chief Complaint Patient presents with Shortness of Breath HPI: 05/20/2022. Patient is a 56 y.o. female with chief complaint of dyspnea. EKG shows frequent PVCs. No chest pain. No orthopnea PND. No heart racing. No presyncope or syncope. EKG showed normal sinus rhythm, frequent PVCs. No coronary artery bypass surgery or coronary artery stenting. She has history of chronic PVCs. Mitral valve prolapse. No diabetes mellitus. No hypertension. No smoking, heavy drinking or drug abuse. 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 04/19/2022. No Acute distress. Feels better. Monitor normal sinus rhythm. No PVCs. Echo showed normal ejection fraction, mild mitral valve prolapse. No significant valvular abnormality. From the cardiac point of view she is stable. Will sign off today from the cardiac viewpoint. Current Medications: acetaminophen azithromycin baclofen sodium chloride 0.9% cefTRIAXone enoxaparin FLUoxetine guaiFENesin ER ipratropium-albuteroL methylPREDNISolone sodium succinate metoprolol XL ondansetron ODT Or ondansetron pantoprazole DR polyethylene glycol sodium chloride 0.9% sodium chloride 0.9% Review of Systems: Constitutional. No fever or chills. Central nervous system. No headaches. No seizures. Respiratory system.. Dyspnea. Cough. Acute bronchitis. Emphysema Cardiovascular system.. For prolapse. Chronic PVCs. GI tract.. No nausea, vomiting, abdominal pain. No diarrhea. Endocrine system. No polyuria or polydipsia. Hematology/oncology. No anemia. No malignancy.. Psychiatric system. No anxiety or depression. Physical Exam: BP 111/65 (BP Location: Right arm) Pulse 80 Temp 36.8 ??C (98.2 ??F) (Oral) Resp 18 Wt 49 kg (108 lb) SpO2 94% BMI 19.14 kg/m?? General. No acute distress. Centtral nervous system.. No focal deficits. The respiratory system. Lungs clear to auscultation and percussion. No rales or rhonchi.. Cardiovascular system. Heart regular. Normal S1 and S2. No murmur, gallop or click.. Abdomen. Soft nontender. Bowel sounds normal.. Skin. Warm and dry with good turgor.. Neck. No jugular venous distention.. Extremities. Normal range of motion and strength. No leg edema. Lab Results Component Value Date CHOL 250 (H) 05/20/2022 HDL 63 05/20/2022 LDLCALC 166 (H) 05/20/2022 CHOLHDL 4 05/20/2022 TRIG 107 05/20/2022 SODIUM 136 05/21/2022 POTASSIUM 3.9 05/21/2022 CO2 27 05/21/2022 BUNSER 14 05/21/2022 GLUCOSE 83 05/21/2022 CREATININE 0.70 05/21/2022 CALCIUM 9.4 05/21/2022 CHLORIDE 98 05/21/2022 ALBUMIN 4.8 05/18/2022 ALT 17 05/18/2022 AST 17 05/18/2022 ALKPHOS 67 05/18/2022 BILITOT <0.2 05/18/2022 PROT 7.7 05/18/2022 WBC 9.7 05/21/2022 HGB 13.3 05/21/2022 TSH 0.88 11/09/2021 NPROBNP 186 05/18/2022 Assessment & Plan:1. Dyspnea. Related primarily to the acute bronchitis and emphysema. Pulmonary Service consulting. 2. Frequent PVCs. She has history of chronic PVCs. Serum potassium and magnesium are within normal limits. Echo showed normal ejection fraction, mild mitral prolapse, no significant valvular abnormality. Continue the metoprolol. Will sign off from the cardiac point of view today. Will follow on outpatient basis. Sultan Elvin Mccartney MD D RECORDING TECHNICIAN * Renae Perea, Miguelina Davenport MD - 05/21/2022 11:45 AM CST Images from the original note were not included. General Medicine Daily Progress SUBJECTIVE Patient is seen in follow up of acute respiratory failure with hypoxia secondary to COPD exacerbation, pulmonary nodules, elevated troponin Patient seen and examined at bedside. Patient states that her breathing is feeling better today. She is still having a bad cough. She has remained afebrile. She is spitting out sputum. She currently denies having any chest pains. OBJECTIVE Vitals: 24hr Min/Max: Temp Min: 36.4 ??C (97.6 ??F) Max: 37.1 ??C (98.7 ??F) Pulse Min: 65 Max: 86 BP Min: 92/56 Max: 121/74 Resp Min: 15 Max: 18 SpO2 Min: 92 % Max: 97 % Most Recent : Vitals: 05/21/22 1106 BP: 119/59 Pulse: 71 Resp: 18 Temp: 37 ??C (98.6 ??F) SpO2: 93% I/O last 2 completed shifts: In: 240 [P.O.:240] Out: - No intake/output data recorded. O2 Therapy for the past 12 hrs: O2 Therapy 05/21/22 1106 None (Room air) 05/21/22 0724 None (Room air) 05/21/22 0422 None (Room air) Physical Exam: Vitals reviewed Constitutional: NAD, comfortable, in bed Eyes: anicteric, vision grossly intact, glasses ENT: MMM Lungs: Bilateral normal air entry, bilateral wheezing present, no crackles, prolonged expiratory phase Heart: Regular, no murmur, no ankle edema Abd: +BS, Non Tender, Non distended : no indwelling abdalla catheter Neuro: No new deficits appreciated Musculoskeletal: ROM grossly intact Skin: warm dry Psychiatric: alert, oriented Lab/Current Medication Review: Recent Results (from the past 24 hour(s)) Lipid panel Collection Time: 05/20/22 3:44 PM Result Value Ref Range Cholesterol 250 (H) 30 - 199 mg/dL Triglycerides 107 <=149 mg/dL HDL 63 >=40 mg/dL LDL, calculated 166 (H) <=129 mg/dL Non-HDL Cholesterol 187 mg/dL Chol/HDL ratio 4 Basic metabolic panel Collection Time: 05/21/22 8:12 AM Result Value Ref Range Sodium 136 135 - 145 mmol/L Potassium, pl 3.9 3.3 - 4.9 mmol/L Chloride 98 97 - 110 mmol/L CO2 27 22 - 32 mmol/L Anion gap 11 2 - 15 mmol/L BUN 14 8 - 25 mg/dL Creatinine 0.70 0.60 - 1.10 mg/dL Glucose 83 70 - 199 mg/dL Calcium 9.4 8.5 - 10.3 mg/dL CBC with auto differential Collection Time: 05/21/22 8:12 AM Result Value Ref Range WBC 9.7 3.8 - 9.9 K/cumm Hgb 13.3 11.9 - 15.5 g/dL Hct 40.1 35.6 - 45.5 % Plt 255 150 - 400 K/cumm MPV 10.0 9.1 - 12.3 fL RBC 4.37 3.90 - 5.20 M/cumm MCV 91.8 81.3 - 96.4 fL MCH 30.4 27.1 - 33.3 pg MCHC 33.2 32.3 - 35.7 g/dL RDW CV 12.6 11.1 - 14.9 % RDW SD 42.3 35.7 - 48.1 fL NRBC abs 0.00 0.00 - 0.01 K/cumm Differential, auto Collection Time: 05/21/22 8:12 AM Result Value Ref Range Neutrophil abs 6.2 1.7 - 6.5 K/cumm Imm gran abs 0.1 0.0 - 0.1 K/cumm Lymphocyte abs 2.5 0.8 - 3.3 K/cumm Monocyte abs 0.6 0.2 - 0.8 K/cumm Eosinophil abs 0.3 0.0 - 0.5 K/cumm Basophil abs 0.1 0.0 - 0.1 K/cumm Neutrophil pct 63.3 % Imm gran pct 1.1 % Lymphocyte pct 26.0 % Monocyte pct 6.2 % Eosinophil pct 2.8 % Basophil pct 0.6 % eGFR Collection Time: 05/21/22 8:12 AM Result Value Ref Range eGFR 100 mL/min/1.73 m2 XR Chest 1 Vw Portable Result Date: 05/18/2022 Narrative: EXAM DESCRIPTION: XR CHEST 1 VIEW REASON FOR STUDY: Shortness of breath sob since Friday. Hx mitral valve prolapse. Denies hx copd, asthma. states that she has a history of MVP however has not been evaluated for a long time. Patient denies any fevers or chills per patient denies any productive coughing TECHNIQUE: Single radiographic view of the chest acquired. COMPARISON: None FINDINGS: LUNGS/PLEURA: No focal consolidation or pneumothorax. No pleural effusion. HEART/MEDIASTINUM: Heart size is normal. Normal mediastinal and hilar contours. HARDWARE/LINES/TUBES: None. BONES: No acute findings. OTHER: No other significant finding. IMPRESSION: No acute cardiopulmonary abnormality. THIS IS AN ELECTRONICALLY VERIFIED FINAL REPORT 05/18/2022 10:24 PM - Electronically signed by Jamal Henriquez M.D. BB T: Report ID: [id number] Reading Location: [id number] Transthoracic Echo (TTE) Complete W Doppler/CF Result Date: 05/20/2022 Narrative: Adult Echocardiogram + + :Name: LESLIE GAMA Study Date: 05/20/2022 Status: B :: Patient Location: [facility]^[id number]^MHHeight: 63 in : : Weight: 110 lbBP: 115/56 mmHg: :: 1965 Gender: Female BSA: 1.5 m2 : :Reason For St udy: SOB : :Ordering Physician: : :HEATHER ALBERTO : : : :Performed By: Verito : :PACO Ramirez : + + Procedure A two-dimensional transthoracic echocardiogram with color flow and Doppler was performed. Left Ventricle The left ventricle is normal in size. There is normal left ventricular wall thickness. Left ventricular systolic function is normal. Ejection Fraction = 55- 60%. The left ventricular wall motion is normal. There is no obvious thrombus noted. Right Ventricle The right ventricle is normal size. The right ventricular systolic function is normal. Atria The left atrial size is normal. Right atrial size is normal. The interatrial septum is intact with no evidence for an atrial septal defect. Mitral Valve Mitral valve leaflets appear redundant. There is borderline mitral valveprolapse. There is no mitral regurgitation noted. Tricuspid Valve The tricuspid valve is normal in structure and function. Aortic Valve Aortic valve structure is normal. No aortic stenosis . No aortic regurgitation is present. Pulmonic Valve The pulmonic valve is not well visualized. Great Vessels The aortic root is normal size. IVC appears normal in size. Normal right heart pressures. Pericardium There is no pericardial effusion. There is no pleural effusion. Diastology Grade I diastolic dysfun ction, (abnormal relaxation pattern). E/E prime ratio is 8 -15 which is in the indeterminate zone. Interpretation Summary Left ventricular systolic function is normal. Ejection Fraction = 55-60%. Mitral valve leaflets appear redundant. There is borderline mitral valve prolapse. There is no mitral regurgitation noted. Normal right heart pressures. Grade I diastolic dysfunction, (abnormal relaxation pattern). + + :Measurements with Normals : :IVSd: (0.6-1.2 LVIDd: (3.5-5.7 Ao root diam: (2.0- 3.7 : :0.67 cm cm) 4.0 cm cm) 2.8 cm cm) : :LVPWd: (0.6-1.1 LVIDs: (3.1-4.6 LA dimension: (1.9-4.0 : :0.83 cm cm) 2.7 cm cm) 2.1cm cm) : + + MMode/2D Measurements & Calculations LVPWs: 0.60 cm FS: 32.3 % Ao root area: 6.2 cm2 LVOT diam: 2.0 cm EDV(Teich): 71.3 ml LVOT area: 3.1 cm2 ESV(Teich): 27.8 ml Doppler Measurements & Calculations MV E max nayeli: Ao V2 max: LV V1 max PG: PA V2 max: 75.4 cm/sec 103.0 cm/sec 2.5 mmHg 81.4 cm/sec MV A max nayeli: Ao max P.2 mmHg LV V1 max: PA max P.0 cm/sec GUILLE(V,D): 2.4 cm2 78.4 cm/sec 2.7 mmHgMV E/A: 0.97 PI end-d nayeli: TR max nayeli: 97.7 cm/sec 212.0 cm/sec TR max P.0 mmHg Electronically signed by: Sultan Sherrill MD 05/20/2022 06:[address] Chest PE (CTA) W Contrast Result Date: 05/18/2022 Narrative: EXAM DESCRIPTION: CT CHEST PE (CTA) W CONTRAST REASON FOR STUDY: Shortness of breath, mid chest pressure for 3 days. TECHNIQUE: CT angiogram of the chest performed with intravenous contrast using helical scanning technique with dynamic intravenous contrast injection. Reconstructed coronal and sagittal MPR images reviewed. All images stored on PACS. 3D MIP images rendered on scanning unit and reviewed at time of interpretation. Automated exposure control was used as a dose optimization technique for this examination. CONTRAST TYPE/DOSE: 80mL of IOVERSOL 350 MG IODINE/ML INTRAVENOUS SYRINGE injected via intravenous COMPARISON: Chest x-ray today , CT abdomen and pelvis 02/16/2010 REF ERENCE: Per ACR white paper recommendations, unless otherwise specified no follow-up imaging is recommended for incidental renal and adrenal lesions per consensus recommendations based on imaging criteria. Further lab evaluation could be pursued based on clinical findings. FINDINGS: VASCULATURE: Noevidence of pulmonary embolus. Normal caliber pulmonary arteries and thoracic aorta. LUNGS: Mild bilateral centrilobular emphysema. Mild diffuse bronchial wall thickening in both lungs, compatible with bronchitis. Moderate multifocal mucous plugging in the bilateral lower lobes, and mild mucous plugging in the peripheral upper lobes. 7 mm indeterminate pulmonary nodule in the anterolateral right lower lobe axial image 106 of 170. Adjacent 4 mm nodule on axial image 102 of 170. These are new compared to 02/16/2010. Follow-up chest CT in 6 months is recommended per Fleischner criteria. Mucous plugging in inferolateral right lower lobe axial images 111-119 of 170, compatible with a mucocele. Mild atelectasis or scarring in the adjacent posterolateral right lower lobe. PLEURA: No effusion. Nopneumothorax. MEDIASTINUM/DEJA: No identified masses or abnormal nodes. HEART: Heart size is normalwith no pericardial effusion. AXILLA: No adenopathy. CHEST WALL: No masses. No subcutaneous air. HARDWARE/LINES/TUBES: None. UPPER ABDOMEN: Cholecystectomy. Pneumobilia. MUSCULOSKELETAL: No significant abnormality. OTHER: No significant abnormality. IMPRESSION: No evidence of pulmonary embolus 7 mmindeterminate pulmonary nodule in the anterolateral right lower lobe axial image 106 of 170. Adjacent 4 mm nodule axial image 102. These are new compared to prior CT 02/16/2010. Suggest follow- up chest CT in 6 months per Fleischner criteria. Mild bilateral emphysema. Bronchial wall thickening bilaterally, compatible with bronchitis. Multifocal bilateral mucous plugging as described. THIS IS AN ELECTRONICALLY VERIFIED FINAL REPORT 05/18/2022 10:32 PM - Electronically signed by Enmanuel Turner M.D. DL T: Report ID: [id number] Reading Location: [place] [id number] A/P: Principal Problem: Shortness of breath Active Problems: Mitral valve prolapse Acute respiratory failure with hypoxia (CMS/HCC) (HCC) Bronchitis with acute wheezing Mucus plugging of bronchi Resolved Problems: No resolved hospital problems. Acute hypoxic respiratory failure secondary to Possible Infective COPD exacerbation Patient's respiratory failure has improved. Currently she is weaned off of oxygen and satting well on room air. She is still has bilateral wheezing Continue with IV Solu-Medrol 40 mg daily Patient is currently on IV antibiotics including IV ceftriaxone and azithromycin for infectious bronchitis, we will continue Patient is awaiting pulmonary function testing today Pulmonary consulted, appreciate recommendations -chest x-ray was negative for acute cardiopulmonary abnormality. -CT of the chest revealed mild emphysema with bronchitis. Pulmonary nodules -patient will get benefit from follow-up CAT scans Elevated troponin -patient had minimally elevated troponin on presentation. Patient currently denies having any chest pains or other cardiac symptoms Echocardiogram shows ejection fraction of 55-60% and grade 1 diastolic dysfunction Defer further testing such as stress test to Cardiology consult Patient seen by Cardiology consult appreciate recommendations Code status: Full Code DVT prophylaxis: Subcutaneous Lovenox PT/OT: Order Case discussed Food Service Director Bedside nurse Medical decision making complexity level 1 Voice recognition software MModal Fluency Direct may have been used dictate and transcribe this document. Museum Security Chief variances may occur. Despite proofreading, typographical errors may occur. Miguelina Macdonald MD 05/21/2022 11:45 AM D RECORDING TECHNICIAN * Donte Campuzano MD - 05/21/2022 6:19 AM CST Progress Note Patient: Leslie Gama ( - 1965) is a 56 y.o. female. Visit Date: 05/21/2022 Chief Complaint Patient presents with Shortness of Breath History of Present Illness: The patient states that her breathing is improving. She did have a coughing episode overnight and her cough is predominantly dry. She is willing to try PFTs today She denies headache, nausea, vomiting or diarrhea. Past Medical History: Past Medical History: Diagnosis Date Esophageal spasm IBS (irritable bowel syndrome) Migraine no longer Mitral valve prolapse Mood disorder (CMS/HCC) (HCC) Surgical History: Past Surgical History: Procedure Laterality Date BLADDER SUSPENSION CHOLECYSTECTOMY HYSTERECTOMY Current Medications: Current Facility-Administered Medications Medication Dose Route Frequency Provider Last Rate Last Admin acetaminophen (TYLENOL) tablet 650 mg 650 mg oral Q4H PRN Rosalinda Fraser MD 650 mg at 05/19/22 1606 azithromycin (ZITHROMAX) tablet 500 mg 500 mg oral Once Heather Alberto NP baclofen (LIORESAL) tablet 10 mg 10 mg oral TID PRN Heather Alberto NP Carrier Fluids for Secondary Infusion - 0.9% Sodium Chloride 30 mL intravenous PRN Rosalinda Fraser MD cefTRIAXone (ROCEPHIN) 2,000 mg/20 mL in sterile water (premix) 2,000 mg 2,000 mg intravenous Q24H [facility] Heather Alberto NP 2,000 mg at 05/20/22 0817 enoxaparin (LOVENOX) syringe 30 mg 30 mg subcutaneous Daily-2099 Rosalinda Fraser MD 30 mg at 05/20/222053 FLUoxetine (PROzac) capsule 60 mg 60 mg oral Daily Rosalinda Fraser MD 60 mg at 05/20/22810 guaiFENesin ER (MUCINEX) extended release tablet 600 mg 600 mg oral BID Heather Alberto NP 600 mg at 05/20/222053 ipratropium-albuteroL (DUO-NEB) 0.5-2.5 mg/3 mL nebulizer solution 3 mL 3 mL nebulization BID (RT) Donte Campuzano MD 3 mL at 05/20/221943 methylPREDNISolone sodium succinate (SOLU-medrol) preservative free injection 40 mg 40 mg intravenous Q24H [facility] Vic Luna MD 40 mg at 05/20/22810 metoprolol XL (TOPROL-XL) extended release tablet 50 mg 50 mg oral Daily Rosalinda Fraser MD 50 mgat 05/20/22810 ondansetron ODT (ZOFRAN-ODT) disintegrating tablet 4 mg 4 mg oral Q6H PRN Rosalinda Fraser MD Or ondansetron (ZOFRAN) injection 4 mg 4 mg intravenous Q6H PRN Rosalinda Fraser MD pantoprazole DR (PROTONIX) extended release tablet 40 mg 40 mg oral Daily Rosalinda Fraser MD polyethylene glycol (MIRALAX) packet 17 g 17 g oral Daily PRN Rosalinda Fraser MD sodium chloride 0.9% flush 0.5-20 mL 0.5-20 mL intra-catheter Q8H [facility] Rosalinda Fraser MD 10 mL at05/20/222053 sodium chloride 0.9% flush 0.5-20 mL 0.5-20 mL intra-catheter PRN Rosalinda Fraser MD Allergies: Allergies Allergen Reactions Adhesive Rash red [...] Tobacco Use Smoking status: Never Smokeless tobacco: Not on file Substance and Sexual Activity Drug use: Yes [...] and nausea. Genitourinary: Negative for hematuria. Musculoskeletal: Negative for arthralgias, back pain and myalgias. Skin: Negative for color change. Allergic/Immunologic: Negative for environmental allergies and food allergies. Neurological: Negative for dizziness and light-headedness. Physical Exam: Vitals: 05/20/22 1900 05/20/22 1944 05/20/22 2308 05/21/22 0422 BP: 121/74 108/62 113/65 BP Location: Right arm Right arm Right arm Patient Position: HOB 30 degrees Lying Lying Pulse: 65 68 85 Resp: 16 18 18 Temp: 36.7 ??C (98 ??F) 36.4 ??C (97.6 ??F) 36.9 ??C (98.5 ??F) TempSrc: Oral Oral Oral SpO2: 96% 95% 95% 97% Weight: Physical Exam Constitutional: Appearance: She is well-developed. HENT: Head: Normocephalic and atraumatic. Eyes: Pupils: Pupils are equal, round, and reactive to light. Cardiovascular: Rate and Rhythm: Normal rate and regular rhythm. Pulmonary: Effort: Pulmonary effort is normal. Breath sounds: Decreased breath sounds present. No wheezing, rhonchi or rales. Abdominal: General: Bowel sounds are normal. Palpations: Abdomen is soft. Musculoskeletal: General: Normal range of motion. Cervical back: Normal range of motion and neck supple. Skin: General: Skin is warm and dry. Neurological: Mental Status: She is alert and oriented to person, place, and time. Data Reviewed Images: Chest CT angiogram 05/18/2022 IMPRESSION: No evidence of pulmonary embolus 7 mm indeterminate pulmonary nodule in the anterolateral right lower lobe axial image 106 of 170. Adjacent 4 mm nodule axial image 102. These are new compared to prior CT 02/16/2010. Suggest follow-up chest CT in 6 months per Fleischner criteria. Mild bilateral emphysema. Bronchial wall thickening bilaterally, compatible with bronchitis. Multifocal bilateral mucous plugging as described. Assessment and Plan: 1.) Acute hypoxemic respiratory failure-Her saturations have ranged between 95 - 97% overnight on room air.. 2.) Asthma/COPD exacerbation-The patient does have emphysematous changes on the CT but never smoked. She was exposed to secondhand smoke from her and parents. Continue with po azithromycin for 1 more dose and IV Rocephin (Day#3) for 5 days. Continue with duo nebs and Solu-Medrol 40 mg IV daily. She is agreeable to attempt full PFTs today. The alpha-1 antitrypsin level is normal at 159. 3.) Pulmonary nodules-These can be followed with serial chest CTs. Rendering Provider & Department: Donte Campuzano MD D RECORDING TECHNICIAN * Javier Elena - 05/20/2022 1:59 PM CST 05/20/22 1300 Time Spent Start Time 0915 Patient Spiritual Assessment Spirituality Assessed Yes Faith Affiliation Muslim Active in Advent No Clinical Encounter Type Visited With Patient Response Type Routine visit Routine Visit Introduction Reason for visit Support Patient did not have particular spiritual care needs at the moment, she said. D RECORDING TECHNICIAN * Dorene Portillo MD - 05/20/2022 1:46 PM CST Hospitalist Daily Progress SUBJECTIVE: Patient feels relatively better, her cough and shortness of is improving. [age] year female with fairly benign past medical history except esophageal spasm and mitral valve prolapse presents emergency department with cough worsening shortness of for few days. Patienthad bronchospasm on arrival with no markers of systemic inflammatory response on presentation. She was hypoxic. Workup including CT of the chest revealed bronchitis with mild emphysema with no history of obstructive airway disease in the past. She does have a history of secondhand smoking. Patient is hospitalized for suspected acute bronchitis leading to COPD exacerbation OBJECTIVE: Vitals: 24hr Min/Max: Temp Min: 36.3 ??C (97.4 ??F) Max: 37.1 ??C (98.7 ??F) Pulse Min: 73 Max: 86 BP Min: 100/63 Max: 115/51 Resp Min: 16 Max: 19 SpO2 Min: 94 % Max: 97 % Review of Systems All system review is negative other than symptoms mentioned in subjective complaints Most Recent : Vitals: 05/19/22 2325 05/20/22 0412 05/20/22 0801 05/20/22 1202 BP: 111/61 115/51 110/67 109/66 BP Location: Right arm Right arm Right arm Right arm Patient Position: Lying Lying Lying Pulse: 73 74 81 85 Resp: 18 18 19 17 Temp: 36.4 ??C (97.6 ??F) 36.4 ??C (97.6 ??F) 36.9 ??C (98.5 ??F) 37.1 ??C (98.7 ??F) TempSrc: Axillary Axillary Oral Oral SpO2: 95% 97% 94% 94% Weight: I/O last 2 completed shifts: In: 10 [I.V.:10] Out: - No intake/output data recorded. Physical Exam She is laying in bed without significant distress Patient is pale clinically anicteric Neck is supple has no lymphadenopathy thyromegaly or raised JVD Chest has reduced breath sounds throughout with bilateral occasional rhonchi Heart sounds are regular without much added sounds Abdomen is soft and nontender with audible bowel sounds Is alert and responsive able to move her extremities has no peripheral edema clubbing or cyanosis Lab/Radiology/Diagnostic Review: Recent Results (from the past 24 hour(s)) Basic metabolic panel Collection Time: 05/20/22 5:27 AM Result Value Ref Range Sodium 136 135 - 145 mmol/L Potassium, pl 4.5 3.3 - 4.9 mmol/L Chloride 99 97 - 110 mmol/L CO2 28 22 - 32 mmol/L Anion gap 9 2 - 15 mmol/L BUN 10 8 - 25 mg/dL Creatinine 0.60 0.60 - 1.10 mg/dL Glucose 110 70 - 199 mg/dL Calcium 9.5 8.5 - 10.3 mg/dL Magnesium Collection Time: 05/20/22 5:27 AM Result Value Ref Range Magnesium 2.2 1.4 - 2.5 mg/dL CBC with auto differential Collection Time: 05/20/22 5:27 AM Result Value Ref Range WBC 12.9 (H) 3.8 - 9.9 K/cumm Hgb 13.0 11.9 - 15.5 g/dL Hct 39.2 35.6 - 45.5 % Plt 268 150 - 400 K/cumm MPV 10.0 9.1 - 12.3 fL RBC 4.30 3.90 - 5.20 M/cumm MCV 91.2 81.3 - 96.4 fL MCH 30.2 27.1 - 33.3 pg MCHC 33.2 32.3 - 35.7 g/dL RDW CV 12.7 11.1 - 14.9 % RDW SD 42.0 35.7 - 48.1 fL NRBC abs 0.00 0.00 - 0.01 K/cumm [id number] Collection Time: 05/20/22 5:27 AM Result Value Ref Range alpha-1 antitrypsin 159 90 - 200 mg/dL Differential, auto Collection Time: 05/20/22 5:27 AM Result Value Ref Range Neutrophil abs 10.9 (H) 1.7 - 6.5 K/cumm Imm gran abs 0.1 0.0 - 0.1 K/cumm Lymphocyte abs 1.2 0.8 - 3.3 K/cumm Monocyte abs 0.6 0.2 - 0.8 K/cumm Eosinophil abs 0.0 0.0 - 0.5 K/cumm Basophil abs 0.0 0.0 - 0.1 K/cumm Neutrophil pct 85.0 % Imm gran pct 0.5 % Lymphocyte pct 9.5 % Monocyte pct 4.6 % Eosinophil pct 0.2 % Basophil pct 0.2 % eGFR Collection Time: 05/20/22 5:27 AM Result Value Ref Range eGFR 104 mL/min/1.73 m2 ASSESSMENT/PLAN: Acute hypoxic respiratory failure secondary to Possible Infective COPD exacerbation -patient presents with worsening shortness of breath with cough. -she has no known history of obstructive airway disease, had bronchospasm on initial evaluation. -chest x-ray was negative for acute cardiopulmonary abnormality. -CT of the chest revealed mild emphysema with bronchitis. -patient is currently on antibiotic coverage of community-acquired infection. -she has symptomatic improvement on current treatment. -oxygen sats will be followed. -Once clinically improves she will get benefit from out pt Lung function test. Pulmonary nodules -patient will get benefit from follow-up CAT scans Elevated troponin -patient had minimally elevated troponin on presentation. -troponin trend was downward with no history of coronary artery disease. -she is scheduled to have an echocardiogram today. -EKG on admission reveals sinus rhythm with PVCs and nonspecific ST T wave changes. -patient is currently asymptomatic. -evaluation by the air brake operator was requested. FEN, Cardiac Code status, Full DVT ppx. SCD Voice recognition software [employer] Direct was used dictate and transcribe this document. Museum Security Chief variances may occur. Despite proofreading, typographical errors may occur. Dorene Portillo MD 05/20/2022 1:46 PM D RECORDING TECHNICIAN * Yaneth Lancaster RN - 05/20/2022 12:05 PM CST [facility] Initial Assessment Interview Note Information Obtained From: Patient (05/20/22 1205) Admission Source: EMERGENCY Impression: PATIENT TO THE ED WITH C/O SHORTNESS OF BREATH X 3 DAYS PRIOR TO ADMISSION. Plan Includes: IMAGING COMPLETED ON ADMISSION. Labs in chart were reviewed. Lab Results Component Value Date WBC 12.9 (H) 05/20/2022 HGB 13.0 05/20/2022 HCT 39.2 05/20/2022 MCV 91.2 05/20/2022 LABPLAT 268 05/20/2022 Lab Results Component Value Date GLUCOSE 110 05/20/2022 CALCIUM 9.5 05/20/2022 SODIUM 136 05/20/2022 POTASSIUM 4.5 05/20/2022 CO2 28 05/20/2022 CHLORIDE 99 05/20/2022 BUNSER 10 05/20/2022 CREATININE 0.60 05/20/2022 VSS ON 2L/NC (NORMALLY DOES NOT WEAR O2) ROCEPHIN IV. ZITH IV. SOLUMEDROL IV. PULMONOLOGY. ECHO ORDERED. Primary Source of Transportation: Health Insurance Coverage: [facility] Prescription Coverage: [facility] Pharmacy: [facility] - . [place], [place] - [address] [facility] [id number] Primary Care Provider: Bouchra Vickers MD Prior to Admission: Primary Caregiver: Self Support System: Spouse/Significant Other, Family members Durable Medical Equipment: None Living Arrangements: Spouse/significant other Type of Residence: Private residence (05/20/22 1205) Potential discharge needs include: PATENT FROM HOME WITH SPOUSE. PLANS TO RETURN HOME WITH SPOUSE AT TIME OF DISCHARGE. NO DISCHARGE NEEDS IDENTIFIED DURING ASSESSMENT. WILL CONTINUE TO FOLLOW CLOSELY AND MONITOR FOR ARISING D/C NEEDS. Patient expects to be Discharged to: Private residence, (05/20/22 1205) Patient's Identified Problem/Goal Problem: Ensure acute medical needs are met and that patient has a safe discharge plan. Goal: Secure a discharge plan that patient/family are agreeable with and ensure patient has continuum of care. Case management will follow for discharge planning and send referrals as needed. Goals include: To assure continuity of care, To maximize coping skills, To assure patient is in a safe environment and To assure access to community resources. Plan includes: 1. Collaboration with patient, MD, direct care nurse, Program Manager, and other members of the health care team to assure needed interventions completed. 2. Return patient to optimal level of self-care post discharge. 3. Vice President Global Advertising Sales will follow for Discharge Planning - interventions as needed 4. Anticipated level of care at discharge 5. Planned Discharge Disposition Yaneth Lancaster RN D RECORDING TECHNICIAN * Donte Campuzano MD - 05/20/2022 8:41 AM CST Progress Note Patient: Leslie Gama ( - 1965) is a 56 y.o. female. Visit Date: 05/20/2022 Chief Complaint Patient presents with Shortness of Breath History of Present Illness: The patient is breathing better but her breathing is not back to baseline. She has had a dry cough and wheezing. She denies headache, nausea, vomiting or diarrhea. Past Medical History: Past Medical History: Diagnosis Date Esophageal spasm IBS (irritable bowel syndrome) Migraine no longer Mitral valve prolapse Mood disorder (CMS/HCC) (HCC) Surgical History: Past Surgical History: Procedure Laterality Date BLADDER SUSPENSION CHOLECYSTECTOMY HYSTERECTOMY Current Medications: Current Facility-Administered Medications Medication Dose Route Frequency Provider Last Rate Last Admin acetaminophen (TYLENOL) tablet 650 mg 650 mg oral Q4H PRN Rosalinda Fraser MD 650 mg at 05/19/22 1606 azithromycin (ZITHROMAX) 500 mg/250 mL in sodium chloride 0.9% (premix) 500 mg 500 mg intravenous Q24H [facility] Heather Alberto NP 250 mL/hr at 05/20/22 0817 500 mg at 05/20/22 0817 baclofen (LIORESAL) tablet 10 mg 10 mg oral TID PRN Heather Alberto NP Carrier Fluids for Secondary Infusion - 0.9% Sodium Chloride 30 mL intravenous PRN Rosalinda Fraser MD cefTRIAXone (ROCEPHIN) 2,000 mg/20 mL in sterile water (premix) 2,000 mg 2,000 mg intravenous Q24H [facility] Heather Alberto NP 2,000 mg at 05/20/22 0817 enoxaparin (LOVENOX) syringe 30 mg 30 mg subcutaneous Daily-2099 Rosalinda Fraser MD 30 mg at 05/19/22 2049 FLUoxetine (PROzac) capsule 60 mg 60 mg oral Daily Rosalinda Fraser MD 60 mg at 05/20/22 0811 guaiFENesin ER (MUCINEX) extended release tablet 600 mg 600 mg oral BID Heather Alberto NP 600 mg at 05/20/22 0812 ipratropium-albuteroL (DUO-NEB) 0.5-2.5 mg/3 mL nebulizer solution 3 mL 3 mL nebulization BID (RT) Donte Campuzano MD methylPREDNISolone sodium succinate (SOLU-medrol) preservative free injection 40 mg 40 mg intravenous Q24H [facility] Vic Luna MD 40 mg at 05/20/22 0811 metoprolol XL (TOPROL-XL) extended release tablet 50 mg 50 mg oral Daily Rosalinda Fraser MD 50 mgat 05/20/22 0811 ondansetron ODT (ZOFRAN-ODT) disintegrating tablet 4 mg 4 mg oral Q6H PRN Rosalinda Fraser MD Or ondansetron (ZOFRAN) injection 4 mg 4 mg intravenous Q6H PRN Rosalinda Fraser MD pantoprazole (PROTONIX) 4 mg/mL injection 40 mg 40 mg intravenous Daily Rosalinda Fraser MD 40 mg at 05/20/22 0811 polyethylene glycol (MIRALAX) packet 17 g 17 g oral Daily PRN Rosalinda Fraser MD sodium chloride 0.9% flush 0.5-20 mL 0.5-20 mL intra-catheter Q8H ERIC Rosalinda Fraser MD 5 mL at 05/20/22 0503 sodium chloride 0.9% flush 0.5-20 mL 0.5-20 mL intra-catheter PRN Rosalinda Fraser MD Allergies: Allergies Allergen Reactions Adhesive Rash red rash, burning Sumatriptan Anaphylaxis Reaction: ANAPHYLAXIS Other Unknown Zolmitriptan Other (See comments) Reaction: Throat Swelling, Family History: Family History Problem Relation Age of Onset Hypertension Mother Family history of hypertension - (Added by TW Conv) Diabetes Mother Family history of diabetes mellitus - (Added by TW Conv) Breast cancer Neg Hx Ovarian cancer Neg Hx Social History: Social History Tobacco Use Smoking status: Never Smokeless tobacco: Not on file Substance and Sexual Activity Drug use: Yes [...] and nausea. Genitourinary: Negative for hematuria. Musculoskeletal: Negative for arthralgias, back pain and myalgias. Skin: Negative for color change. Allergic/Immunologic: Negative for environmental allergies and food allergies. Neurological: Negative for dizziness and light-headedness. Physical Exam: Vitals: 02/19200005/19/22 2325 05/20/22 0412 05/20/22 0801 BP: 111/61 115/51 110/67 BP Location: Right arm Right arm Right arm Patient Position: Lying Lying Pulse: 73 74 81 Resp: Temp: 36.4 ??C (97.6 ??F) 36.4 ??C (97.6 ??F) 36.9 ??C (98.5 ??F) TempSrc: Axillary Axillary Oral SpO2: 96% 95% 97% 94% Weight: Physical Exam Constitutional: Appearance: She is well-developed. HENT: Head: Normocephalic and atraumatic. Eyes: Pupils: Pupils are equal, round, and reactive to light. Cardiovascular: Rate and Rhythm: Normal rate and regular rhythm. Pulmonary: Effort: Pulmonary effort is normal. Breath sounds: Wheezing present. No rhonchi or rales. Abdominal: General: Bowel sounds are normal. Palpations: Abdomen is soft. Musculoskeletal: General: Normal range of motion. Cervical back: Normal range of motion and neck supple. Skin: General: Skin is warm and dry. Neurological: Mental Status: She is alert and oriented to person, place, and time. Data Reviewed Images: Chest CT angiogram 05/18/2022 IMPRESSION: No evidence of pulmonary embolus 7 mm indeterminate pulmonary nodule in the anterolateral right lower lobe axial image 106 of 170. Adjacent 4 mm nodule axial image 102. These are new compared to prior CT 02/16/2010. Suggest follow-up chest CT in 6 months per Fleischner criteria. Mild bilateral emphysema. Bronchial wall thickening bilaterally, compatible with bronchitis. Multifocal bilateral mucous plugging as described. Assessment and Plan: 1.) Acute hypoxemic respiratory failure-Her saturations have ranged between 94 - 97% overnight on 2 L of oxygen via nasal cannula. 2.) Asthma/COPD exacerbation-The patient does have emphysematous changes on the CT but never smoked. She was exposed to secondhand smoke from her and parents. Continue with IV azithromycin for 3 days and IV Rocephin for 5 days. Continue with duo nebs and Solu-Medrol 40 mg IV daily. She willneed full PFTs prior to discharge. The alpha-1 antitrypsin level is pending. 3.) Pulmonary nodules-These can be followed with serial chest CTs. Rendering Provider & Department: Donte Campuzano MD D RECORDING TECHNICIAN documented in this encounter H&P Notes * Tj, Heather, NP - 05/19/2022 11:14 AM CST Images from the original note were not included. History and Physical Date of Service: 05/19/2022 Primary Care Provider: Bouchra Vickers MD [phone] CHIEF COMPLAINT: Presents to the ED with a chief complaint of shortness of breaths. HPI: Patient is a 56 y.o. female with a PMHx significant for mitral valve prolapse and esophageal spasm.Patient states that she began feeling unwell on Friday with a sore throat. She woke up on Friday and noticed that she was short of breath as she was getting dressed for work. She stayed home fromwork on Friday and felt somewhat better so she went back to work on , but when she walked up the 2 flights of stairs to her office she was extremely short of breath and felt panicked. She went to urgent care where she received a breathing treatment and a chest x-ray. She stated that she felt better after the breathing treatment but was referred to the emergency department from urgent ca re due to an abnormal chest x-ray. She states that she waited in the emergency department for about2.5 hours but felt better and did not feel ???sick enough?? to be in the emergency department and left before being seen. She stated that she had intended to call her PCP on Friday and schedule an outpatient CT but overnight last night became extremely short of breath and felt as though she could not get ???enough air?? . She presented to the emergency department where she was found to have an SpO2 of 78% in triage, she was immediately placed on 4 L O2 per nasal cannula and states that she feels better after breathing treatments, steroids, and oxygen. On interview and exam she is resting comf ortably on 2 L O2 per nasal cannula and states that she feels better but is still short of breath with any exertion. Lab evaluation demonstrated a white blood cell count of 12. D-dimer was minimally elevated at 120, CT of the chest per PE protocol was negative for acute PE but did show bronchitis with multifocal bilateral mucus plugging. She denies smoking and alcohol use. Past Medical History: Diagnosis Date Esophageal spasm IBS (irritable bowel syndrome) Migraine no longer Mitral valve prolapse Mood disorder (CMS/HCC) (HCC) Past Surgical History: Procedure Laterality Date BLADDER SUSPENSION CHOLECYSTECTOMY HYSTERECTOMY Medications Prior to Admission Medication Sig Dispense Refill Last Dose baclofen (LIORESAL) 10 mg tablet 3 (three) times a day Unknown estradioL (VIVELLE-DOT) 0.05 mg/[address] 1 patch on the skin once a week Apply patch twice weekly. 24 patch 3 FLUoxetine (PROzac) 60 mg tablet fluoxetine 60 mg tablet 05/18/2022 at am metoprolol XL (TOPROL-XL) 50 mg extended release tablet Rx: Metoprolol Succinate 05/18/2022 at am miSOPROStoL (CYTOTEC) 200 mcg tablet misoprostol 200 mcg tablet Unknown nitroglycerin (NITROSTAT) 0.4 mg SL tablet nitroglycerin 0.4 mg sublingual tablet Unknown polyethylene glycol (MIRALAX) 17 gram/dose powder Miralax 17 gram/dose oral powder Dissolve 1 capful(s) in 8 ounces of water and drink daily 05/18/2022 at am Allergies Allergen Reactions Adhesive Rash red rash, burning Sumatriptan Anaphylaxis Reaction: ANAPHYLAXIS Other Unknown Zolmitriptan Other (See comments) Reaction: Throat Swelling, Social History Tobacco Use Smoking status: Never Smokeless tobacco: Not on file Substance and Sexual Activity Drug use: Yes Types: Marijuana Comment: gumnikkis Sexual activity: Yes Partners: Male control/protection: Hysterectomy Alcohol Use: Not on file Family History Problem Relation Age of Onset Hypertension Mother Family history of hypertension - (Added by TW Conv) Diabetes Mother Family history of diabetes mellitus - (Added by TW Conv) Breast cancer Neg Hx Ovarian cancer Neg Hx Review of Systems: Review of Systems Constitutional: Positive for activity change and fatigue. Negative for appetite change, chills and fever. HENT: Negative. Eyes: Negative. Respiratory: Positive for cough (Nonproductive), chest tightness, shortness of breath and wheezing. Cardiovascular: Negative. Gastrointestinal: Negative. Genitourinary: Negative. Musculoskeletal: Negative. Skin: Negative. Neurological: Negative. Psychiatric/Behavioral: Negative. OBJECTIVE: Vitals: Arrival Vitals Temp 05/18/222116 36.8 ??C (98.3 ??F) Pulse 05/18/222116 83 Resp 05/18/222116 26 BP 05/18/222116 (!) 148/111 SpO2 05/18/222116 (!) 78 % Temp src 05/19/22 0350 Oral Heart Rate Source 05/19/22 0300 Monitor Patient Position 05/19/22 0734 Lying BP Location 05/19/22 0350 Right arm FiO2 (%) -- Most Recent : Vitals: 05/19/22 0350 05/19/22 0700 05/19/22 0734 05/19/22 0903 BP: 114/73 136/66 BP Location: Right arm Right arm Patient Position: Lying Pulse: 75 77 79 Resp: 20 18 Temp: 36.9 ??C (98.4 ??F) 37.2 ??C (99 ??F) TempSrc: Oral Oral SpO2: 93% 96% 98% Weight: I/O last 2 completed shifts: In: 10 [I.V.:10] Out: - No intake/output data recorded. Physical Exam: Physical Exam Constitutional: General: She is not in acute distress. Appearance: She is well-developed. She is ill-appearing. HENT: Head: Normocephalic and atraumatic. Eyes: Extraocular Movements: Extraocular movements intact. Pupils: Pupils are equal, round, and reactive to light. Neck: Vascular: No JVD. Cardiovascular: Rate and Rhythm: Normal rate and regular rhythm. Pulses: Normal pulses. Heart sounds: Normal heart sounds. Pulmonary: Effort: Tachypnea present. No accessory muscle usage or respiratory distress. Breath sounds: Examination of the right-lower field reveals wheezing and rhonchi. Examination of the left-lower field reveals wheezing and rhonchi. Wheezing and rhonchi present. Chest: Chest wall: No mass, tenderness or edema. Abdominal: General: Bowel sounds are normal. Palpations: Abdomen is soft. There is no hepatomegaly or mass. Musculoskeletal: General: Normal range of motion. Cervical back: Normal range of motion and neck supple. Right lower leg: No edema. Left lower leg: No edema. Skin: General: Skin is warm and dry. Capillary Refill: Capillary refill takes less than 2 seconds. Coloration: Skin is not cyanotic. Neurological: General: No focal deficit present. Mental Status: She is alert and oriented to person, place, and time. Cranial Nerves: No cranial nerve deficit. Psychiatric: Mood and Affect: Mood normal. Mood is not anxious. Behavior: Behavior normal. Behavior is not agitated. Lab/Radiology/Diagnostic Review: Recent Results (from the past 24 hour(s)) CBC with auto differential Collection Time: 05/18/22 9:10 PM Result Value Ref Range WBC 12.0 (H) 3.8 - 9.9 K/cumm Hgb 14.1 11.9 - 15.5 g/dL Hct 41.9 35.6 - 45.5 % Plt 263 150 - 400 K/cumm MPV 9.7 9.1 - 12.3 fL RBC 4.60 3.90 - 5.20 M/cumm MCV 91.1 81.3 - 96.4 fL MCH 30.7 27.1 - 33.3 pg MCHC 33.7 32.3 - 35.7 g/dL RDW CV 12.5 11.1 - 14.9 % RDW SD 41.3 35.7 - 48.1 fL NRBC abs 0.00 0.00 - 0.01 K/cumm Comprehensive metabolic panel Collection Time: 05/18/22 9:10 PM Result Value Ref Range Sodium 141 135 - 145 mmol/L Potassium, pl 3.8 3.3 - 4.9 mmol/L Chloride 103 97 - 110 mmol/L CO2 26 22 - 32 mmol/L Anion gap 12 2 - 15 mmol/L BUN 11 8 - 25 mg/dL Creatinine 0.70 0.60 - 1.10 mg/dL Glucose 132 70 - 199 mg/dL Calcium 10.2 8.5 - 10.3 mg/dL Bilirubin, total <0.2 0.1 - 1.2 mg/dL Protein, pl 7.7 6.5 - 8.5 g/dL Albumin 4.8 3.5 - 5.0 g/dL Alk phos 67 40 - 130 Units/L ALT 17 7 - 45 Units/L AST 17 10 - 45 Units/L Troponin T high-sensitivity series (baseline, 2hr, 4hr, 6hr) Collection Time: 05/18/22 9:10 PM Result Value Ref Range Trop T hs 32 (H) <=14 ng/L Pro B-type natriuretic peptide Collection Time: 05/18/22 9:10 PM Result Value Ref Range NT-proBNP 186 <=300 pg/mL Influenza A/B, RSV, and COVID-19 PCR Nasopharyngeal Collection Time: 05/18/22 9:10 PM Specimen: Nasopharyngeal Result Value Ref Range COVID-19 RNA Negative Negative Influenza A RNA Negative Negative Influenza B RNA Negative Negative RSV RNA Negative Negative D-dimer, quantitative Collection Time: 05/18/22 9:10 PM Result Value Ref Range D-Dimer 820 (H) <=499 ng/mL FEU Sepsis Lactate w/ Reflex Collection Time: 05/18/22 9:10 PM Result Value Ref Range Sepsis Lactate 1.7 0.7 - 2.0 mmol/L Differential, auto Collection Time: 05/18/22 9:10 PM Result Value Ref Range Neutrophil abs 7.4 (H) 1.7 - 6.5 K/cumm Imm gran abs 0.0 0.0 - 0.1 K/cumm Lymphocyte abs 2.9 0.8 - 3.3 K/cumm Monocyte abs 1.1 (H) 0.2 - 0.8 K/cumm Eosinophil abs 0.5 0.0 - 0.5 K/cumm Basophil abs 0.1 0.0 - 0.1 K/cumm Neutrophil pct 61.7 % Imm gran pct 0.3 % Lymphocyte pct 23.8 % Monocyte pct 9.5 % Eosinophil pct 3.9 % Basophil pct 0.8 % eGFR Collection Time: 05/18/22 9:10 PM Result Value Ref Range eGFR 100 mL/min/1.73 m2 Magnesium Collection Time: 05/18/22 9:10 PM Result Value Ref Range Magnesium 2.1 1.4 - 2.5 mg/dL Blood gas, arterial Collection Time: 05/18/22 9:55 PM Result Value Ref Range pH, Art 7.37 7.35 - 7.45 PCO2, Arterial 45 35 - 45 mmHg PO2, Arterial 89 83 - 108 mmHg HCO3 Art (Calculated) 26 20 - 30 mmol/L BE, art 0 mmol/L O2 Sat Art (Measured) 98 (H) 90 - 95 % Troponin T high-sensitivity 4-hour Collection Time: 05/19/22 5:35 AM Result Value Ref Range Trop T hs 41 (H) <=14 ng/L Trop T hs delta See Comment ng/L Trop T hs pct delta See Comment % Trop T hs interp See Comment Troponin T high-sensitivity 6-hour Collection Time: 05/19/22 7:45 AM Result Value Ref Range Trop T hs 34 (H) <=14 ng/L Trop T hs delta See Comment ng/L Trop T hs pct delta See Comment % Trop T hs interp See Comment XR Chest 1 Vw Portable Result Date: 05/18/2022 Narrative: EXAM DESCRIPTION: XR CHEST 1 VIEW REASON FOR STUDY: Shortness of breath sob since Friday. Hx mitral valve prolapse. Denies hx copd, asthma. states that she has a history of MVP however has not been evaluated for a long time. Patient denies any fevers or chills per patient denies any productive coughing TECHNIQUE: Single radiographic view of the chest acquired. COMPARISON: None FINDINGS: LUNGS/PLEURA: No focal consolidation or pneumothorax. No pleural effusion. HEART/MEDIASTINUM: Heart size is normal. Normal mediastinal and hilar contours. HARDWARE/LINES/TUBES: None. BONES: No acute findings. OTHER: No other significant finding. IMPRESSION: No acute cardiopulmonary abnormality. THIS IS AN ELECTRONICALLY VERIFIED FINAL REPORT 05/18/2022 10:24 PM - Electronically signed by Jamal Henriquez M.D. BB T: Report ID: [id number] Reading Location: [place] [address] CT Chest PE (CTA) W Contrast Result Date: 05/18/2022 Narrative: EXAM DESCRIPTION: CT CHEST PE (CTA) W CONTRAST REASON FOR STUDY: Shortness of breath, mid chest pressure for 3 days. TECHNIQUE: CT angiogram of the chest performed with intravenous contrast using helical scanning technique with dynamic intravenous contrast injection. Reconstructed coronal and sagittal MPR images reviewed. All images stored on PACS. 3D MIP images rendered on scanning unit and reviewed at time of interpretation. Automated exposure control was used as a dose optimization technique for this examination. CONTRAST TYPE/DOSE: 80mL of IOVERSOL 350 MG IODINE/ML INTRAVENOUS SYRINGE injected via intravenous COMPARISON: Chest x-ray today , CT abdomen and pelvis 02/16/2010 REF ERENCE: Per ACR white paper recommendations, unless otherwise specified no follow-up imaging is recommended for incidental renal and adrenal lesions per consensus recommendations based on imaging criteria. Further lab evaluation could be pursued based on clinical findings. FINDINGS: VASCULATURE: Noevidence of pulmonary embolus. Normal caliber pulmonary arteries and thoracic aorta. LUNGS: Mild bilateral centrilobular emphysema. Mild diffuse bronchial wall thickening in both lungs, compatible with bronchitis. Moderate multifocal mucous plugging in the bilateral lower lobes, and mild mucous plugging in the peripheral upper lobes. 7 mm indeterminate pulmonary nodule in the anterolateral right lower lobe axial image 106 of 170. Adjacent 4 mm nodule on axial image 102 of 170. These are new compared to 02/16/2010. Follow-up chest CT in 6 months is recommended per Fleischner criteria. Mucous plugging in inferolateral right lower lobe axial images 111-119 of 170, compatible with a mucocele. Mild atelectasis or scarring in the adjacent posterolateral right lower lobe. PLEURA: No effusion. Nopneumothorax. MEDIASTINUM/DEJA: No identified masses or abnormal nodes. HEART: Heart size is normalwith no pericardial effusion. AXILLA: No adenopathy. CHEST WALL: No masses. No subcutaneous air. HARDWARE/LINES/TUBES: None. UPPER ABDOMEN: Cholecystectomy. Pneumobilia. MUSCULOSKELETAL: No significa nt abnormality. OTHER: No significant abnormality. IMPRESSION: No evidence of pulmonary embolus 7 mm indeterminate pulmonary nodule in the anterolateral right lower lobe axial image 106 of 170. Adjacent 4 mm nodule axial image 102. These are new compared to prior CT 02/16/2010. Suggest follow-up chest CT in 6 months per Fleischner criteria. Mild bilateral emphysema. Bronchial wall thickening bilaterally, compatible with bronchitis. Multifocal bilateral mucous plugging as described. THIS IS AN ELECTRONICALLY VERIFIED FINAL REPORT 05/18/2022 10:32 PM - Electronically signed by Enmanuel Turner M.D. DL T: Report ID: [id number] Reading Location: [place] [address] ASSESSMENT/PLAN: Principal Problem: Shortness of breath Active Problems: Mitral valve prolapse Acute respiratory failure with hypoxia (CMS/HCC) (HCC) Bronchitis with acute wheezing Mucus plugging of bronchi Resolved Problems: No resolved hospital problems. Full Code 1. Acute respiratory failure with hypoxia secondary to bronchitis and mucus plugging -CT chest reviewed -O2 to maintain saturation greater than 92%, currently on 2 L per nasal cannula -not on home O2 -IV Rocephin -IV azithromycin -sputum culture -scheduled DuoNebs -bronchopulmonary hygiene with incentive spirometry and pep -scheduled Mucinex b.i.d. -pulmonology consult 2. History of mitral valve prolapse -2D echo -chest x-ray reviewed, no evidence of CHF -continue home metoprolol ESTIMATED LENGTH OF STAY: Greater than 2 midnight DVT prophylaxis: Lovenox Advance Care Planning Conversation Pertinent diagnoses: Acute hypoxic respiratory failure The patient and/or family consented to a voluntary Advance Care Planning conversation. Individuals present for the conversation: patient Summary of the conversation: Discussed patient's wishes regarding resuscitation in the event of cardiac or pulmonary arrest. Interventions include chest compressions, cardiac defibrillation, intubation, mechanical ventilation. Patient would like to remain a full code at this time. Outcome of the conversation and documents completed (select all that apply): continue the current treatment plan and code status without modification I spent 5 minutes providing separately identifiable ACP services with the patient and/or surrogate decision maker in a voluntary, in-person conversation discussing the patient's wishes and goals as detailed in the above note. My total encounter time on 05/19/2022 was 60 minutes which was spent in the activities documented inthe note. This includes time spent prior to the visit and after the visit in direct care of the patient. This time does not include time spent in any separately reportable services. Voice recognition software [employer] may have been used to dictate and transcribe this document. [employer] variances may occur. Despite proofreading, typographical errors may occur. Heather Alberto NP 05/19/2022 11:14 AM Cosigned by Dorene Portillo MD at 05/19/2022 2:28 PM SOUND RECORDING TECHNICIAN D RECORDING TECHNICIAN D RECORDING TECHNICIAN Associated attestation - Dorene Portillo MD - 05/19/2022 2:28 PM SOUND RECORDING TECHNICIAN Patient was evaluated and cared for in conjunction with advanced practice provider. Have personallyand independently examined the patient reviewed the chart including the labs and imaging and agree with history and physical as well as the management plan of the advanced practice provider. 56-year-old female with history mitral valve prolapse and esophageal spasm was hospitalized for evaluation of acute hypoxic respiratory failure. Patient has history of cough and shortness of breath few days, had no markers of systemic inflammatory response on presentation although had significant bronchospasm with hypoxia. Her workup including CT of the chest was negative for PE although revealed bronchitis. Patient be kept on oxygen through nasal cannula, will be kept on antibiotic coverage of community-acquired infection. Patient will also be kept on bronchodilators both schedule as well as as needed with symptomatic treatment for cough and shortness of breath. documented in this encounter Consult Notes * Sultan Elvin Mccartney MD - 05/20/2022 6:30 PM CST Consult Reason for Consult: Dyspnea. PVCs. Requesting Provider: Dr. Portillo HPI:Patient is a 56 y.o. female with chief complaint of dyspnea. EKG shows frequent PVCs. No chest pain. No orthopnea PND. No heart racing. No presyncope or syncope. EKG showed normal sinus rhythm, frequent PVCs. No coronary artery bypass surgery or coronary artery stenting. She has history of chronic PVCs. Mitral valve prolapse. No diabetes mellitus. No hypertension. No smoking, heavy drinking or drug abuse. 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 Past Medical History: Diagnosis Date Esophageal spasm IBS (irritable bowel syndrome) Migraine no longer Mitral valve prolapse Mood disorder (CMS/HCC) (HCC) Past Surgical History: Procedure Laterality Date BLADDER SUSPENSION CHOLECYSTECTOMY HYSTERECTOMY Medications Prior to Admission Medication Sig Dispense Refill Last Dose baclofen (LIORESAL) 10 mg tablet 3 (three) times a day Unknown estradioL (VIVELLE-DOT) 0.05 mg/[address] 1 patch on the skin once a week Apply patch twice weekly. 24 patch 3 FLUoxetine (PROzac) 60 mg tablet fluoxetine 60 mg tablet 05/18/2022 at am metoprolol XL (TOPROL-XL) 50 mg extended release tablet Rx: Metoprolol Succinate 05/18/2022 at am miSOPROStoL (CYTOTEC) 200 mcg tablet misoprostol 200 mcg tablet Unknown nitroglycerin (NITROSTAT) 0.4 mg SL tablet nitroglycerin 0.4 mg sublingual tablet Unknown polyethylene glycol (MIRALAX) 17 gram/dose powder Miralax 17 gram/dose oral powder Dissolve 1 capful(s) in 8 ounces of water and drink daily 05/18/2022 at am Allergies Allergen Reactions Adhesive Rash red rash, burning Sumatriptan Anaphylaxis Reaction: ANAPHYLAXIS Zolmitriptan Other (See comments) Reaction: Throat Swelling, Social History Tobacco Use Smoking status: Never Smokeless tobacco: Not on file Substance and Sexual Activity Drug use: Yes Types: Marijuana Comment: gummys Sexual activity: Yes Partners: Male control/protection: Hysterectomy Alcohol Use: Not on file Family History Problem Relation Age of Onset Hypertension Mother Family history of hypertension - (Added by TW Conv) Diabetes Mother Family history of diabetes mellitus - (Added by Conv) Breast cancer Neg Hx Ovarian cancer Neg Hx Review of Systems: Constitutional no fever or chills. Central nervous system no stroke, seizures or headaches. Pulmonary system . Acute bronchitis. Hypoxia. Dyspnea. Emphysema on x-ray of the chest. Bronchial thickening. Mucus plugs. Cardiovascular system no chest pain, orthopnea, or PND. No palpitations, presyncope, or syncope. Nohypertension. No myocardial infarction or congestive heart failure. No coronary artery bypass surgery or coronary artery stenting. Dyspnea. History are prolapse. Chronic PVCs. GI tract. No nausea, vomiting or abdominal pain. No abdominal cramps or diarrhea. tract. No dysuria or frequency of micturition. Musculoskeletal no acute joint pain or swelling. Endocrine system no diabetes mellitus. No polyuria or polydipsia. Psychiatric system no anxiety, depression, or psychosis. Hematology oncology no malignancy or anemia. Autoimmune system. No lupus or scleroderma. Dermatology. No psoriasis or eczema. Objective Vitals: 24hr Min/Max: Temp Min: 36.3 ??C (97.4 ??F) Max: 37.1 ??C (98.7 ??F) Pulse Min: 72 Max: 86 BP Min: 92/56 Max: 115/51 Resp Min: 15 Max: 19 SpO2 Min: 94 % Max: 97 % Most Recent: Vitals: 05/20/22 1600 BP: 92/56 Pulse: 72 Resp: 15 Temp: 36.8 ??C (98.2 ??F) SpO2: 95% I/O last 2 completed shifts: In: 10 [I.V.:10] Out: - No intake/output data recorded. Physical Exam: General Appearance: Alert, cooperative, no distress, appears stated age, well developed, well nourished Head: Normocephalic, without obvious abnormality, atraumatic Eyes: PERRL, conjunctiva/corneas clear, EOM's intact, fundi benign, both eyes, anicteric Neck: Supple, symmetrical, trachea midline, no adenopathy; thyroid: No enlargement/tenderness/nodules; no carotid bruit or JVD Back: Symmetric, no curvature, ROM normal, no CVA tenderness Lungs: Clear to auscultation bilaterally, respirations unlabored Cardiovascular: Normal PMI. Regular rhythm. Normal S1-S2 without any murmur gallop or click. Abdomen: Soft, non-tender, bowel sounds active all four quadrants, no masses, no organomegaly, non-distended Extremities: Extremities normal, atraumatic, no cyanosis or edema, no clubbing Skin: Skin color, texture, turgor normal, no rashes, lesions or bruising Lymph nodes: Cervical, supraclavicular, and axillary nodes normal Neurologic: Alert & oriented x 4, CNII-XII intact. Normal strength, sensation and reflexes throughout Lab/Radiology/Diagnostic Review: Results for orders placed or performed during the hospital encounter of 05/18/22 Influenza A/B, RSV, and COVID-19 PCR Nasopharyngeal Specimen: Nasopharyngeal Result Value Ref Range COVID-19 RNA Negative Negative Influenza A RNA Negative Negative Influenza B RNA Negative Negative RSV RNA Negative Negative CBC with auto differential Result Value Ref Range WBC 12.0 (H) 3.8 - 9.9 K/cumm Hgb 14.1 11.9 - 15.5 g/dL Hct 41.9 35.6 - 45.5 % Plt 263 150 - 400 K/cumm MPV 9.7 9.1 - 12.3 fL RBC 4.60 3.90 - 5.20 M/cumm MCV 91.1 81.3 - 96.4 fL MCH 30.7 27.1 - 33.3 pg MCHC 33.7 32.3 - 35.7 g/dL RDW CV 12.5 11.1 - 14.9 % RDW SD 41.3 35.7 - 48.1 fL NRBC abs 0.00 0.00 - 0.01 K/cumm Comprehensive metabolic panel Result Value Ref Range Sodium 141 135 - 145 mmol/L Potassium, pl 3.8 3.3 - 4.9 mmol/L Chloride 103 97 - 110 mmol/L CO2 26 22 - 32 mmol/L Anion gap 12 2 - 15 mmol/L BUN 11 8 - 25 mg/dL Creatinine 0.70 0.60 - 1.10 mg/dL Glucose 132 70 - 199 mg/dL Calcium 10.2 8.5 - 10.3 mg/dL Bilirubin, total <0.2 0.1 - 1.2 mg/dL Protein, pl 7.7 6.5 - 8.5 g/dL Albumin 4.8 3.5 - 5.0 g/dL Alk phos 67 40 - 130 Units/L ALT 17 7 - 45 Units/L AST 17 10 - 45 Units/L Troponin T high-sensitivity series (baseline, 2hr, 4hr, 6hr) Result Value Ref Range Trop T hs 32 (H) <=14 ng/L Pro B-type natriuretic peptide Result Value Ref Range NT-proBNP 186 <=300 pg/mL D-dimer, quantitative Result Value Ref Range D-Dimer 820 (H) <=499 ng/mL FEU Blood gas, arterial Result Value Ref Range pH, Art 7.37 7.35 - 7.45 PCO2, Arterial 45 35 - 45 mmHg PO2, Arterial 89 83 - 108 mmHg HCO3 Art (Calculated) 26 20 - 30 mmol/L BE, art 0 mmol/L O2 Sat Art (Measured) 98 (H) 90 - 95 % Sepsis Lactate w/ Reflex Result Value Ref Range Sepsis Lactate 1.7 0.7 - 2.0 mmol/L Differential, auto Result Value Ref Range Neutrophil abs 7.4 (H) 1.7 - 6.5 K/cumm Imm gran abs 0.0 0.0 - 0.1 K/cumm Lymphocyte abs 2.9 0.8 - 3.3 K/cumm Monocyte abs 1.1 (H) 0.2 - 0.8 K/cumm Eosinophil abs 0.5 0.0 - 0.5 K/cumm Basophil abs 0.1 0.0 - 0.1 K/cumm Neutrophil pct 61.7 % Imm gran pct 0.3 % Lymphocyte pct 23.8 % Monocyte pct 9.5 % Eosinophil pct 3.9 % Basophil pct 0.8 % Troponin T high-sensitivity 4-hour Result Value Ref Range Trop T hs 41 (H) <=14 ng/L Trop T hs delta See Comment ng/L Trop T hs pct delta See Comment % Trop T hs interp See Comment Troponin T high-sensitivity 6-hour Result Value Ref Range Trop T hs 34 (H) <=14 ng/L Trop T hs delta See Comment ng/L Trop T hs pct delta See Comment % Trop T hs interp See Comment eGFR Result Value Ref Range eGFR 100 mL/min/1.73 m2 Magnesium Result Value Ref Range Magnesium 2.1 1.4 - 2.5 mg/dL Basic metabolic panel Result Value Ref Range Sodium 136 135 - 145 mmol/L Potassium, pl 4.5 3.3 - 4.9 mmol/L Chloride 99 97 - 110 mmol/L CO2 28 22 - 32 mmol/L Anion gap 9 2 - 15 mmol/L BUN 10 8 - 25 mg/dL Creatinine 0.60 0.60 - 1.10 mg/dL Glucose 110 70 - 199 mg/dL Calcium 9.5 8.5 - 10.3 mg/dL Magnesium Result Value Ref Range Magnesium 2.2 1.4 - 2.5 mg/dL CBC with auto differential Result Value Ref Range WBC 12.9 (H) 3.8 - 9.9 K/cumm Hgb 13.0 11.9 - 15.5 g/dL Hct 39.2 35.6 - 45.5 % Plt 268 150 - 400 K/cumm MPV 10.0 9.1 - 12.3 fL RBC 4.30 3.90 - 5.20 M/cumm MCV 91.2 81.3 - 96.4 fL MCH 30.2 27.1 - 33.3 pg MCHC 33.2 32.3 - 35.7 g/dL RDW CV 12.7 11.1 - 14.9 % RDW SD 42.0 35.7 - 48.1 fL NRBC abs 0.00 0.00 - 0.01 K/cumm Qxyil-[id number] Result Value Ref Range alpha-1 antitrypsin 159 90 - 200 mg/dL Differential, auto Result Value Ref Range Neutrophil abs 10.9 (H) 1.7 - 6.5 K/cumm Imm gran abs 0.1 0.0 - 0.1 K/cumm Lymphocyte abs 1.2 0.8 - 3.3 K/cumm Monocyte abs 0.6 0.2 - 0.8 K/cumm Eosinophil abs 0.0 0.0 - 0.5 K/cumm Basophil abs 0.0 0.0 - 0.1 K/cumm Neutrophil pct 85.0 % Imm gran pct 0.5 % Lymphocyte pct 9.5 % Monocyte pct 4.6 % Eosinophil pct 0.2 % Basophil pct 0.2 % eGFR Result Value Ref Range eGFR 104 mL/min/1.73 m2 Lipid panel Result Value Ref Range Cholesterol 250 (H) 30 - 199 mg/dL Triglycerides 107 <=149 mg/dL HDL 63 >=40 mg/dL LDL, calculated 166 (H) <=129 mg/dL Non-HDL Cholesterol 187 mg/dL Chol/HDL ratio 4 ECG 12 lead Result Value Ref Range Ventricular Rate EKG/Min 72 BPM Atrial Rate 72 BPM [place]-Interval (MSEC) 166 ms QRS-Interval (MSEC) 78 ms QT-Interval (MSEC) 412 ms QTc 451 ms P Erie 79 degrees R Erie 72 degrees T Erie 72 degrees Diagnosis Sinus rhythm with frequent Premature ventricular complexes Septal infarct , age undetermined Abnormal ECG When compared with ECG of 18-JAN-2019 06:58, No significant change was found XR Chest 1 Vw Portable Result Date: 05/18/2022 Narrative: EXAM DESCRIPTION: XR CHEST 1 VIEW REASON FOR STUDY: Shortness of breath sob since Friday. Hx mitral valve prolapse. Denies hx copd, asthma. states that she has a history of MVP however has not been evaluated for a long time. Patient denies any fevers or chills per patient denies any productive coughing TECHNIQUE: Single radiographic view of the chest acquired. COMPARISON: None FINDINGS: LUNGS/PLEURA: No focal consolidation or pneumothorax. No pleural effusion. HEART/MEDIASTINUM: Heart size is normal. Normal mediastinal and hilar contours. HARDWARE/LINES/TUBES: None. BONES: No acute findings. OTHER: No other significant finding. IMPRESSION: No acute cardiopulmonary abnormality. THIS IS AN ELECTRONICALLY VERIFIED FINAL REPORT 05/18/2022 10:24 PM - Electronically signed by Jamal Henriquez M.D. BB T: Report ID: [id number] Reading Location: [place] [address] CT Chest PE (CTA) W Contrast Result Date: 05/18/2022 Narrative: EXAM DESCRIPTION: CT CHEST PE (CTA) W CONTRAST REASON FOR STUDY: Shortness of breath, mid chest pressure for 3 days. TECHNIQUE: CT angiogram of the chest performed with intravenous contrast using helical scanning technique with dynamic intravenous contrast injection. Reconstructed coronal and sagittal MPR images reviewed. All images stored on PACS. 3D MIP images rendered on scanning unit and reviewed at time of interpretation. Automated exposure control was used as a dose optimization technique for this examination. CONTRAST TYPE/DOSE: 80mL of IOVERSOL 350 MG IODINE/ML INTRAVENOUS SYRINGE injected via intravenous COMPARISON: Chest x-ray today , CT abdomen and pelvis 02/16/2010 REF ERENCE: Per ACR white paper recommendations, unless otherwise specified no follow-up imaging is recommended for incidental renal and adrenal lesions per consensus recommendations based on imaging criteria. Further lab evaluation could be pursued based on clinical findings. FINDINGS: VASCULATURE: Noevidence of pulmonary embolus. Normal caliber pulmonary arteries and thoracic aorta. LUNGS: Mild bilateral centrilobular emphysema. Mild diffuse bronchial wall thickening in both lungs, compatible with bronchitis. Moderate multifocal mucous plugging in the bilateral lower lobes, and mild mucous plugging in the peripheral upper lobes. 7 mm indeterminate pulmonary nodule in the anterolateral right lower lobe axial image 106 of 170. Adjacent 4 mm nodule on axial image 102 of 170. These are new compared to 02/16/2010. Follow-up chest CT in 6 months is recommended per Fleischner criteria. Mucous plugging in inferolateral right lower lobe axial images 111-119 of 170, compatible with a mucocele. Mild atelectasis or scarring in the adjacent posterolateral right lower lobe. PLEURA: No effusion. Nopneumothorax. MEDIASTINUM/DEJA: No identified masses or abnormal nodes. HEART: Heart size is normalwith no pericardial effusion. AXILLA: No adenopathy. CHEST WALL: No masses. No subcutaneous air. HARDWARE/LINES/TUBES: None. UPPER ABDOMEN: Cholecystectomy. Pneumobilia. MUSCULOSKELETAL: No significant abnormality. OTHER: No significant abnormality. IMPRESSION: No evidence of pulmonary embolus 7 mmindeterminate pulmonary nodule in the anterolateral right lower lobe axial image 106 of 170. Adjacent 4 mm nodule axial image 102. These are new compared to prior CT 02/16/2010. Suggest follow- up chest CT in 6 months per Fleischner criteria. Mild bilateral emphysema. Bronchial wall thickening bilaterally, compatible with bronchitis. Multifocal bilateral mucous plugging as described. THIS IS AN ELECTRONICALLY VERIFIED FINAL REPORT 05/18/2022 10:32 PM - Electronically signed by Enmanuel PECK T: Report ID: [id number] Reading Location: [place] [address] EKG reviewed independently shows normal sinus rhythm, frequent PVCs. X-ray chest reviewed independently shows hyperinflated lungs consistent with emphysema. Assessment/ Plan:1. Dyspnea. Related primarily to the acute bronchitis and emphysema. Pulmonary Service consulting. 2. Frequent PVCs. She has history of chronic PVCs. Serum potassium and magnesium are within normal limits. Will review the echo Doppler study. Sherrill. D RECORDING TECHNICIAN * Vic Luna MD - 05/19/2022 1:09 PM CST Pulmonary Consult Reason for Consult: emphysema and denies tobacco use and getting more dyspnea Requesting Provider: Dorene Portillo MD Subjective Patient is a 56 y.o. female with chief complaint of cough, shortness of breath Reason for Consult: emphysema and denies tobacco use and getting more dyspnea Requesting Provider: Dorene Portillo MD HPI: Patient is a 56-year-old female with past medical history mitral valve prolapse, mood disorder, esophageal spasm who is a lifetime nonsmoker but has significant history of secondhand smoking. 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 Patient has not been feeling well since Friday. Patient complains of cough, wheezing, shortness of breath, sore throat. Her symptoms have been progressively getting worse and she presented to ER yesterday for evaluation. In the ER she was started on 2 L ofsupplemental oxygen. Her labs showed WBC count of 12,000, bicarb of 26 and creatinine of 0.7. A CT scan of the chest done with PE protocol shows, No evidence of pulmonary embolus.7 mm indeterminate pulmonary nodule in the anterolateral right lower lobe axial image 106 of 170. Adjacent 4 mm nodule axial image 102. These are new compared to prior CT 02/16/2010. Suggest follow-up chest CT in 6 months per Fleischner criteria. Mild bilateral emphysema.Bronchial wall thickening bilaterally, compatible with bronchitis. Multifocal bilateral mucous plugging as described. PULMONARY CONSULTATION HAS BEEN REQUESTED TO ASSIST WITH THE MANAGEMENT THIS PATIENT. Past Medical History: Diagnosis Date Esophageal spasm IBS (irritable bowel syndrome) Migraine no longer Mitral valve prolapse Mood disorder (CMS/HCC) (HCC) Past Surgical History: Procedure Laterality Date BLADDER SUSPENSION CHOLECYSTECTOMY HYSTERECTOMY Medications Prior to Admission Medication Sig Dispense Refill Last Dose baclofen (LIORESAL) 10 mg tablet 3 (three) times a day Unknown estradioL (VIVELLE-DOT) 0.05 mg/[address] 1 patch on the skin once a week Apply patch twice weekly. 24 patch 3 FLUoxetine (PROzac) 60 mg tablet fluoxetine 60 mg tablet 05/18/2022 at am metoprolol XL (TOPROL-XL) 50 mg extended release tablet Rx: Metoprolol Succinate 05/18/2022 at am miSOPROStoL (CYTOTEC) 200 mcg tablet misoprostol 200 mcg tablet Unknown nitroglycerin (NITROSTAT) 0.4 mg SL tablet nitroglycerin 0.4 mg sublingual tablet Unknown polyethylene glycol (MIRALAX) 17 gram/dose powder Miralax 17 gram/dose oral powder Dissolve 1 capful(s) in 8 ounces of water and drink daily 05/18/2022 at am Allergies Allergen Reactions Adhesive Rash red rash, burning Sumatriptan Anaphylaxis Reaction: ANAPHYLAXIS Other Unknown Zolmitriptan Other (See comments) Reaction: Throat Swelling, Social History Tobacco Use Smoking status: Never Smokeless tobacco: Not on file Substance and Sexual Activity Drug use: Yes Types: Marijuana Comment: luis Sexual activity: Yes Partners: Male control/protection: Hysterectomy Alcohol Use: Not on file Family History Problem Relation Age of Onset Hypertension Mother Family history of hypertension - (Added by TW Conv) Diabetes Mother Family history of diabetes mellitus - (Added by TW Conv) Breast cancer Neg Hx Ovarian cancer Neg Hx Review of Systems: Review of Systems Constitutional: Generalized weakness and fatigue HENT: Negative for congestion, nosebleeds, postnasal drip, rhinorrhea, sinus pressure, sinus pain, sneezing, trouble swallowing and voice change. Eyes: Negative for discharge and itching. Respiratory: Cough, wheezing, shortness of breath Cardiovascular: Negative for chest pain, palpitations and leg swelling. Gastrointestinal: Negative for abdominal distention and abdominal pain. Endocrine: Negative for cold intolerance, heat intolerance, polydipsia, polyphagia and polyuria. Genitourinary: Negative for difficulty urinating, dysuria and enuresis. Musculoskeletal: Negative for arthralgias, back pain and gait problem. Allergic/Immunologic: Negative for environmental allergies, food allergies and immunocompromised state. Neurological: Negative for speech difficulty, light-headedness and numbness. Hematological: Negative for adenopathy. Does not bruise/bleed easily. Psychiatric/Behavioral: Negative for agitation, behavioral problems, confusion and sleep disturbance. Objective Vitals: 24hr Min/Max: Temp Min: 36.5 ??C (97.7 ??F) Max: 37.2 ??C (99 ??F) Pulse Min: 75 Max: 84 BP Min: 105/64 Max: 148/111 Resp Min: 18 Max: 26 SpO2 Min: 78 % Max: 99 % Most Recent : Vitals: 05/19/22 1201 BP: 105/64 Pulse: 84 Resp: 18 Temp: 36.5 ??C (97.7 ??F) SpO2: 97% Intake/Output Summary (Last 24 hours) at 05/19/2022 1310 Last data filed at 05/19/2022 0545 Gross per 24 hour Intake 10 ml Output -- Net 10 ml Physical Exam: General Appearance: Alert, cooperative, no distress, appears stated age, well developed, well nourished Head: Normocephalic, without obvious abnormality, atraumatic Eyes: PERRL, conjunctiva/corneas clear, EOM's intact, fundi benign, both eyes, anicteric Ears: Normal TM's and external ear canals, both ears Nose: Nares normal, septum midline, mucosa normal, no drainage or sinus tenderness Throat: Lips, mucosa, and tongue normal; teeth and gums normal, mucous membranes moist Neck: Supple, symmetrical, trachea midline, no adenopathy; thyroid: No enlargement/tenderness/nodules; no carotid bruit or JVD Back: Symmetric, no curvature, ROM normal, no CVA tenderness Lungs: Clear to auscultation bilaterally, respirations unlabored Breast Exam: No tenderness, masses, or nipple abnormality Cardiovascular: Regular rate and rhythm, S1 and S2 normal, no murmur, rub or gallop, no edema, pulses 2+ and symmetric to all extremeties Abdomen: Soft, non-tender, bowel sounds active all four quadrants, no masses, no organomegaly, non-distended Genitalia: Normal female without lesion, discharge or tenderness Rectal: Normal tone, no masses or tenderness; guaiac negative stool Extremities: Extremities normal, atraumatic, no cyanosis or edema, no clubbing Skin: Skin color, texture, turgor normal, no rashes, lesions or bruising Lymph nodes: Cervical, supraclavicular, and axillary nodes normal Neurologic: Alert & oriented x 4, CNII-XII intact. Normal strength, sensation and reflexes throughout Psychosocial: Normal affect and mood Lab/Radiology/Diagnostic Review: Laboratory review: Lab results in the last 24 hours: Recent Results (from the past 24 hour(s)) CBC with auto differential Collection Time: 05/18/22 9:10 PM Result Value Ref Range WBC 12.0 (H) 3.8 - 9.9 K/cumm Hgb 14.1 11.9 - 15.5 g/dL Hct 41.9 35.6 - 45.5 % Plt 263 150 - 400 K/cumm MPV 9.7 9.1 - 12.3 fL RBC 4.60 3.90 - 5.20 M/cumm MCV 91.1 81.3 - 96.4 fL MCH 30.7 27.1 - 33.3 pg MCHC 33.7 32.3 - 35.7 g/dL RDW CV 12.5 11.1 - 14.9 % RDW SD 41.3 35.7 - 48.1 fL NRBC abs 0.00 0.00 - 0.01 K/cumm Comprehensive metabolic panel Collection Time: 05/18/22 9:10 PM Result Value Ref Range Sodium 141 135 - 145 mmol/L Potassium, pl 3.8 3.3 - 4.9 mmol/L Chloride 103 97 - 110 mmol/L CO2 26 22 - 32 mmol/L Anion gap 12 2 - 15 mmol/L BUN 11 8 - 25 mg/dL Creatinine 0.70 0.60 - 1.10 mg/dL Glucose 132 70 - 199 mg/dL Calcium 10.2 8.5 - 10.3 mg/dL Bilirubin, total <0.2 0.1 - 1.2 mg/dL Protein, pl 7.7 6.5 - 8.5 g/dL Albumin 4.8 3.5 - 5.0 g/dL Alk phos 67 40 - 130 Units/L ALT 17 7 - 45 Units/L AST 17 10 - 45 Units/L Troponin T high-sensitivity series (baseline, 2hr, 4hr, 6hr) Collection Time: 05/18/22 9:10 PM Result Value Ref Range Trop T hs 32 (H) <=14 ng/L Pro B-type natriuretic peptide Collection Time: 05/18/22 9:10 PM Result Value Ref Range NT-proBNP 186 <=300 pg/mL Influenza A/B, RSV, and COVID-19 PCR Nasopharyngeal Collection Time: 05/18/22 9:10 PM Specimen: Nasopharyngeal Result Value Ref Range COVID-19 RNA Negative Negative Influenza A RNA Negative Negative Influenza B RNA Negative Negative RSV RNA Negative Negative D-dimer, quantitative Collection Time: 05/18/22 9:10 PM Result Value Ref Range D-Dimer 820 (H) <=499 ng/mL FEU Sepsis Lactate w/ Reflex Collection Time: 05/18/22 9:10 PM Result Value Ref Range Sepsis Lactate 1.7 0.7 - 2.0 mmol/L Differential, auto Collection Time: 05/18/22 9:10 PM Result Value Ref Range Neutrophil abs 7.4 (H) 1.7 - 6.5 K/cumm Imm gran abs 0.0 0.0 - 0.1 K/cumm Lymphocyte abs 2.9 0.8 - 3.3 K/cumm Monocyte abs 1.1 (H) 0.2 - 0.8 K/cumm Eosinophil abs 0.5 0.0 - 0.5 K/cumm Basophil abs 0.1 0.0 - 0.1 K/cumm Neutrophil pct 61.7 % Imm gran pct 0.3 % Lymphocyte pct 23.8 % Monocyte pct 9.5 % Eosinophil pct 3.9 % Basophil pct 0.8 % eGFR Collection Time: 05/18/22 9:10 PM Result Value Ref Range eGFR 100 mL/min/1.73 m2 Magnesium Collection Time: 05/18/22 9:10 PM Result Value Ref Range Magnesium 2.1 1.4 - 2.5 mg/dL Blood gas, arterial Collection Time: 05/18/22 9:55 PM Result Value Ref Range pH, Art 7.37 7.35 - 7.45 PCO2, Arterial 45 35 - 45 mmHg PO2, Arterial 89 83 - 108 mmHg HCO3 Art (Calculated) 26 20 - 30 mmol/L BE, art 0 mmol/L O2 Sat Art (Measured) 98 (H) 90 - 95 % Troponin T high-sensitivity 4-hour Collection Time: 05/19/22 5:35 AM Result Value Ref Range Trop T hs 41 (H) <=14 ng/L Trop T hs delta See Comment ng/L Trop T hs pct delta See Comment % Trop T hs interp See Comment Troponin T high-sensitivity 6-hour Collection Time: 05/19/22 7:45 AM Result Value Ref Range Trop T hs 34 (H) <=14 ng/L Trop T hs delta See Comment ng/L Trop T hs pct delta See Comment % Trop T hs interp See Comment Assessment /Plan Principal Problem: Shortness of breath Active Problems: Mitral valve prolapse Acute respiratory failure with hypoxia (CMS/HCC) (HCC) Bronchitis with acute wheezing Mucus plugging of bronchi Assessment and plan 1-hypoxia Continue supplemental oxygen to keep saturation more than 92%. Currently on 2 L. 2-acute bronchitis Continue with azithromycin for 3 days and ceftriaxone for 5 days. 3-pulmonary emphysema Patient has mild to moderate emphysema on CT scan of the chest. Likely due to secondhand smoking. Iwill obtain an Nath antitrypsin level. Obtain full set of PFTs as an outpatient. Continue bronchodilators q.6 hours and p.r.n.. Decrease IV Solu-Medrol to once a day. 4-pulmonary nodule Repeat CT scan of the chest in 6 months. DVT and GI prophylaxis D RECORDING TECHNICIAN documented in this encounter ED Notes * Carolann Franz, RON - 05/18/2022 10:20 PM CST 2129 pt placed on 4lnc satting 96%. Pt denies any previous respiratory hx. States sob has been occurring over the last couple of days and significantly worse today at 7pm. Abg drawn and read at 2154 normal. Btx given 2216. Still wheezy after tx 0006 10mg albuterol tx given. Pt reporting breathing has improved. Feels better after 10mg tx. Pt o2 persists at 2L satting in the low 90s% D RECORDING TECHNICIAN D RECORDING TECHNICIAN D RECORDING TECHNICIAN * Andie Garcia RN - 05/18/2022 9:55 PM CST Pt was placed on high flow 02.4l n/c by RT. ABG obtained. Awiting for result. Andie Garcia RN 05/18/222199 D RECORDING TECHNICIAN * Nyasia Love RN - 05/18/2022 9:16 PM CST Pt from home c/o sob since Friday. Hx mitral valve prolapse. Denies hx copd, asthma. Denies pain D RECORDING TECHNICIAN * Wilmar Luna MD - 05/18/2022 9:11 PM CST History of Present Illness Patient information was obtained primarily from the patient, medical records, Leslie Gama is a 56 y.o. female with hx as below, who presents with c/o SOB. Pt states that she has been SOB for the past 3 days. Pt states that she feels SOB on exertion. Patient denies any history of DVT or PE. Patient states that she has a history of MVP however has not been evaluated for along time. Patient denies any fevers or chills per patient denies any productive coughing. Patientdenies any prior smoking history. Patient denies any prior diagnosis of PE or DVT. Patient denies any history of blood thinners. Patient denies any recent surgeries or recent travel. Patient denies any chest pain. Relevant Medical History Past Medical History: Diagnosis Date Esophageal spasm IBS (irritable bowel syndrome) Migraine no longer Mitral valve prolapse Mood disorder (CMS/HCC) (HCC) Past Surgical History: Procedure Laterality Date BLADDER SUSPENSION CHOLECYSTECTOMY HYSTERECTOMY Family History Problem Relation Age of Onset Hypertension Mother Family history of hypertension - (Added by TW Conv) Diabetes Mother Family history of diabetes mellitus - (Added by TW Conv) Breast cancer Neg Hx Ovarian cancer Neg Hx Social History Tobacco Use Smoking status: Never Smokeless tobacco: Not on file Substance and Sexual Activity Drug use: Yes Types: Marijuana Comment: gummys Sexual activity: Yes Partners: Male control/protection: Hysterectomy Alcohol Use: Not on file Allergies Allergen Reactions Adhesive Rash red rash, burning Sumatriptan Anaphylaxis Reaction: ANAPHYLAXIS Other Unknown Zolmitriptan Other (See comments) Reaction: Throat Swelling, Review of Systems All systems reviewed and are neg or non contributory for this patients presentation today other than as stated in the HPI . Physical Exam ED Triage Vitals Temp Pulse Resp BP SpO2 -- -- -- -- -- Temp src Heart Rate Source Patient Position BP Location FiO2 (%) -- -- -- -- -- Height Height Method Weight Weight Method -- -- -- -- Physical Exam Vitals and nursing note reviewed. Constitutional: General: She is not in acute distress. Appearance: She is well-developed. HENT: Head: Normocephalic and atraumatic. Eyes: Conjunctiva/sclera: Conjunctivae normal. Cardiovascular: Rate and Rhythm: Normal rate and regular rhythm. Heart sounds: No murmur heard. Pulmonary: Effort: Pulmonary effort is normal. No respiratory distress. Breath sounds: Normal breath sounds. Abdominal: Palpations: Abdomen is soft. Tenderness: There is no abdominal tenderness. Musculoskeletal: General: No swelling. Cervical back: Neck supple. Skin: General: Skin is warm and dry. Capillary Refill: Capillary refill takes less than 2 seconds. Neurological: Mental Status: She is alert. Psychiatric: Mood and Affect: Mood normal. Studies and Interpretation Labs Reviewed INFLUENZA A/B, RSV, AND COVID-19 PCR CBC WITH AUTO DIFFERENTIAL COMPREHENSIVE METABOLIC PANEL TROPONIN T HIGH-SENSITIVITY SERIES (BASELINE, 2HR, 4HR, 6HR) PRO B-TYPE NATRIURETIC PEPTIDE D-DIMER, QUANTITATIVE BLOOD GAS, ARTERIAL SEPSIS LACTATE WITH REFLEX Medications methylPREDNISolone sodium succinate (SOLU-medrol) preservative free injection 125 mg (has no administration in time range) XR Chest 1 Vw Portable (Results Pending) Medical Decision Making ED Course ED Course as of 05/18/222248 Time: 05/18 2248 Comment: CT PE IMPRESSION: No evidence of pulmonary embolus 7 mm indeterminate pulmonary nodule in the anterolateral right lower lobe axial image 106 of 170. Adjacent 4 mm nodule axial image 102. These are new compared to prior CT 02/16/2010. Suggest follow-up chest CT in 6 months per Fleischner criteria. Mild bilateral emphysema. Bronchial wall thickening bilaterally, compatible with bronchitis. Multifocal bilateral mucous plugging as described. By: Wilmar Luna MD Medical Decision Making Clinical problems/dx: Leslie Gama is a 56 y.o. female who presents with shortness of breath. Data analysis -Independent historian -Patient seen and evaluated, available studies reviewed -Prior available records reviewed, triage notes reviewed DDx: Emphysema versus pneumonia versus PE versus ACS versus other -Plan/Test: Labs, imaging, EKG, reassessment -Interpretation of test: Please see ED course Discussion with other providers/consultants/hospitalist/strain technician: Hospitalist The patient presents with symptoms most consistent with an acute COPD exacerbation. These constellation of symptoms are similar to prior flares without over deviations from hoa exacerbations. The likely precipitant is chronic bronchitis. Low suspicion for alternate etiologies such as PTX, acute PE . Presentation not consistent with acute cardiopulmonary causes including ACS/CHF/cardiac effusion. Plan: duonebs, steroids, CXR, reassessment Based on the patient's current presentation, no need for supplemental oxygen, the plan is for trialof duonebs, COVID-19 swab, steroid. No abx was given due to no change in sputum color or sputum production. Will evaluate for acute cardiopulmonary processes with a CXR. Ambulated the pt in the ED and the pt's O2 declined to the mid 80s. Pt has no home O2 requirement at home. Will admit for scheduled duo nebs and pulmonology evaluation. Procedures ED Final Diagnosis and Discharge information 1. Shortness of breath 2. Acute bronchitis, unspecified organism 3. Pulmonary emphysema, unspecified emphysema type (HCC) Disposition Admit Note: This H+P was created with the aid of dictation software, thus there may be some word substitutions or errors Wilmar Luna MD 05/19/22 0507 D RECORDING TECHNICIAN documented in this encounter Miscellaneous Notes * Plan of Care - Christy Cochran RN - 05/22/2022 11:39 AM CST Problem: Activity: Goal: Risk for activity intolerance will decrease Outcome: Progressing Problem: Lack of Knowledge: Goal: Knowledge of diagnostic tests will improve Outcome: Progressing Problem: Activity: Goal: Risk for activity intolerance will decrease Outcome: Progressing Problem: Lack of Knowledge: Goal: Knowledge of diagnostic tests will improve Outcome: Progressing Goal: Knowledge of disease or condition will improve Outcome: Progressing Goal: Knowledge of safety precautions will improve Outcome: Progressing Goal: Knowledge of the prescribed therapeutic regimen will improve Outcome: Progressing Problem: Health Behavior: Goal: Ability to state signs and symptoms to report to health care provider will improve Outcome: Progressing Problem: Physical Regulation: Goal: Ability to maintain clinical measurements within normal limits will improve Outcome: Progressing Problem: Infection Risk: Goal: Will remain free from infection Outcome: Progressing Problem: Safety: Goal: Ability to remain free from injury will improve Outcome: Progressing Goal: Will remain free from falls Outcome: Progressing Problem: Self-Care: Goal: Ability to participate in self-care as condition permits will improve Outcome: Progressing Problem: Sensory: Goal: Pain level will decrease Outcome: Progressing Goal: Ability to develop a pain control plan will improve Outcome: Progressing Problem: Skin Integrity: Goal: Risk for impaired skin integrity will decrease Outcome: Progressing Problem: Tissue Perfusion: Goal: Risk factors for ineffective tissue perfusion will decrease Outcome: Progressing Problem: Respiratory: Goal: Ability to achieve and maintain a regular respiratory rate will improve Outcome: Progressing Goal: Ability to maintain a clear airway will improve Outcome: Progressing Goal: Ability to maintain normal pulse oximetry readings will improve Outcome: Progressing Goal: Ability to maintain arterial blood gas levels within normal range will improve Outcome: Progressing Goal: Verbalizations of increased ease of respirations will increase Outcome: Progressing Problem: Lack of Knowledge: Goal: Ability to develop a pain control plan will improve Outcome: Progressing Goal: Ability to identify pain intensity on a pain scale and rate it consistently will improve Outcome: Progressing Goal: Ability to notify healthcare provider of pain before it becomes unmanageable or unbearable will improve Outcome: Progressing Problem: Medication: Goal: Satisfaction with pain management regimen will improve Outcome: Progressing Problem: Sensory: Goal: Ability to identify factors that increase the pain will improve Outcome: Progressing Goal: Pain level will decrease Outcome: Progressing Problem: Health Behavior: Goal: Understanding of discharge needs will improve Outcome: Progressing Goals: Clinical Goals for the Shift: Maintain ventilation Summary: progressing D RECORDING TECHNICIAN * Plan of Lissette - Mino Romero RN - 05/22/2022 4:51 AM CST Problem: Activity: Goal: Risk for activity intolerance will decrease Outcome: Progressing Problem: Lack of Knowledge: Goal: Knowledge of diagnostic tests will improve Outcome: Progressing Problem: Activity: Goal: Risk for activity intolerance will decrease Outcome: Progressing Problem: Lack of Knowledge: Goal: Knowledge of diagnostic tests will improve Outcome: Progressing Goal: Knowledge of disease or condition will improve Outcome: Progressing Goal: Knowledge of safety precautions will improve Outcome: Progressing Goal: Knowledge of the prescribed therapeutic regimen will improve Outcome: Progressing Problem: Health Behavior: Goal: Ability to state signs and symptoms to report to health care provider will improve Outcome: Progressing Problem: Physical Regulation: Goal: Ability to maintain clinical measurements within normal limits will improve Outcome: Progressing Problem: Infection Risk: Goal: Will remain free from infection Outcome: Progressing Problem: Safety: Goal: Ability to remain free from injury will improve Outcome: Progressing Goal: Will remain free from falls Outcome: Progressing Problem: Self-Care: Goal: Ability to participate in self-care as condition permits will improve Outcome: Progressing Problem: Sensory: Goal: Pain level will decrease Outcome: Progressing Goal: Ability to develop a pain control plan will improve Outcome: Progressing Problem: Skin Integrity: Goal: Risk for impaired skin integrity will decrease Outcome: Progressing Problem: Tissue Perfusion: Goal: Risk factors for ineffective tissue perfusion will decrease Outcome: Progressing Problem: Respiratory: Goal: Ability to achieve and maintain a regular respiratory rate will improve Outcome: Progressing Goal: Ability to maintain a clear airway will improve Outcome: Progressing Goal: Ability to maintain normal pulse oximetry readings will improve Outcome: Progressing Goal: Ability to maintain arterial blood gas levels within normal range will improve Outcome: Progressing Goal: Verbalizations of increased ease of respirations will increase Outcome: Progressing Problem: Lack of Knowledge: Goal: Ability to develop a pain control plan will improve Outcome: Progressing Goal: Ability to identify pain intensity on a pain scale and rate it consistently will improve Outcome: Progressing Goal: Ability to notify healthcare provider of pain before it becomes unmanageable or unbearable will improve Outcome: Progressing Problem: Medication: Goal: Satisfaction with pain management regimen will improve Outcome: Progressing Problem: Sensory: Goal: Ability to identify factors that increase the pain will improve Outcome: Progressing Goal: Pain level will decrease Outcome: Progressing Problem: Health Behavior: Goal: Understanding of discharge needs will improve Outcome: Progressing Goals: Clinical Goals for the Shift: Maintain ventilation Summary: No acute changes overnight. Resting comfortably. D RECORDING TECHNICIAN * Plan of Care - Christy Cochran RN - 05/21/2022 11:04 AM CST Problem: Activity: Goal: Risk for activity intolerance will decrease 05/21/2022 1104 by Christy Cochran RN Outcome: Progressing 05/21/2022 1103 by Christy Cochran RN Outcome: Progressing Problem: Lack of Knowledge: Goal: Knowledge of diagnostic tests will improve 05/21/2022 1104 by Christy Cochran RN Outcome: Progressing 05/21/2022 1103 by Christy Cochran RN Outcome: Progressing Problem: Activity: Goal: Risk for activity intolerance will decrease 05/21/2022 1104 by Christy Cochran RN Outcome: Progressing 05/21/2022 1103 by Christy Cochran RN Outcome: Progressing Problem: Lack of Knowledge: Goal: Knowledge of diagnostic tests will improve 05/21/2022 1104 by Christy Cochran RN Outcome: Progressing 05/21/2022 1103 by Christy Cochran RN Outcome: Progressing Goal: Knowledge of disease or condition will improve 05/21/2022 1104 by Christy Cochran RN Outcome: Progressing 05/21/2022 1103 by Christy Cochran RN Outcome: Progressing Goal: Knowledge of safety precautions will improve 05/21/2022 1104 by Christy Cochran RN Outcome: Progressing 05/21/2022 1103 by Christy Cochran RN Outcome: Progressing Goal: Knowledge of the prescribed therapeutic regimen will improve 05/21/2022 1104 by Christy Cochran RN Outcome: Progressing 05/21/2022 1103 by Christy Cochran RN Outcome: Progressing Problem: Health Behavior: Goal: Ability to state signs and symptoms to report to health care provider will improve 05/21/2022 1104 by Christy Cochran RN Outcome: Progressing 05/21/2022 1103 by Christy Cochran RN Outcome: Progressing Problem: Physical Regulation: Goal: Ability to maintain clinical measurements within normal limits will improve 05/21/2022 1104 by Christy Cochran RN Outcome: Progressing 05/21/2022 1103 by Christy Cochran RN Outcome: Progressing Problem: Infection Risk: Goal: Will remain free from infection 05/21/2022 1104 by Christy Cochran RN Outcome: Progressing 05/21/2022 1103 by Christy Cochran RN Outcome: Progressing Problem: Safety: Goal: Ability to remain free from injury will improve 05/21/2022 1104 by Christy Cochran RN Outcome: Progressing 05/21/2022 1103 by Christy Cochran RN Outcome: Progressing Goal: Will remain free from falls 05/21/2022 1104 by Christy Cochran RN Outcome: Progressing 05/21/2022 1103 by Christy Cochran RN Outcome: Progressing Problem: Self-Care: Goal: Ability to participate in self-care as condition permits will improve 05/21/2022 1104 by Christy Cochran RN Outcome: Progressing 05/21/2022 1103 by Christy Cochran RN Outcome: Progressing Problem: Sensory: Goal: Pain level will decrease 05/21/2022 1104 by Christy Cochran RN Outcome: Progressing 05/21/2022 1103 by Christy Cochran RN Outcome: Progressing Goal: Ability to develop a pain control plan will improve 05/21/2022 1104 by Christy Cochran RN Outcome: Progressing 05/21/2022 1103 by Christy Cochran RN Outcome: Progressing Problem: Skin Integrity: Goal: Risk for impaired skin integrity will decrease 05/21/2022 1104 by Christy Cochran RN Outcome: Progressing 05/21/2022 1103 by Christy Cochran RN Outcome: Progressing Problem: Tissue Perfusion: Goal: Risk factors for ineffective tissue perfusion will decrease 05/21/2022 1104 by Christy Cochran RN Outcome: Progressing 05/21/2022 1103 by Christy Cochran RN Outcome: Progressing Problem: Respiratory: Goal: Ability to achieve and maintain a regular respiratory rate will improve 05/21/2022 1104 by Christy Cochran RN Outcome: Progressing 05/21/2022 1103 by Christy Cochran RN Outcome: Progressing Goal: Ability to maintain a clear airway will improve 05/21/2022 1104 by Christy Cochran RN Outcome: Progressing 05/21/2022 1103 by Christy Cochran RN Outcome: Progressing Goal: Ability to maintain normal pulse oximetry readings will improve 05/21/2022 1104 by Christy Cochran RN Outcome: Progressing 05/21/2022 1103 by Christy Cochran RN Outcome: Progressing Goal: Ability to maintain arterial blood gas levels within normal range will improve 05/21/2022 1104 by Christy Cochran RN Outcome: Progressing 05/21/2022 1103 by Christy Cochran RN Outcome: Progressing Goal: Verbalizations of increased ease of respirations will increase 05/21/2022 1104 by Christy Cochran RN Outcome: Progressing 05/21/2022 1103 by Christy Cochran RN Outcome: Progressing Problem: Lack of Knowledge: Goal: Ability to develop a pain control plan will improve 05/21/2022 1104 by Christy Cochran RN Outcome: Progressing 05/21/2022 1103 by Christy Cochran RN Outcome: Progressing Goal: Ability to identify pain intensity on a pain scale and rate it consistently will improve 05/21/2022 1104 by Christy Cochran RN Outcome: Progressing 05/21/2022 1103 by Christy Cochran RN Outcome: Progressing Goal: Ability to notify healthcare provider of pain before it becomes unmanageable or unbearable will improve 05/21/2022 1104 by Christy Cochran RN Outcome: Progressing 05/21/2022 1103 by Christy Cochran RN Outcome: Progressing Problem: Medication: Goal: Satisfaction with pain management regimen will improve 05/21/2022 1104 by Christy Cochran RN Outcome: Progressing 05/21/2022 1103 by Christy Cochran RN Outcome: Progressing Problem: Sensory: Goal: Ability to identify factors that increase the pain will improve 05/21/2022 1104 by Christy Cochran RN Outcome: Progressing 05/21/2022 1103 by Christy Cochran RN Outcome: Progressing Goal: Pain level will decrease 05/21/2022 1104 by Christy Cochran RN Outcome: Progressing 05/21/2022 1103 by Christy Cochran RN Outcome: Progressing Problem: Health Behavior: Goal: Understanding of discharge needs will improve 05/21/2022 1104 by Christy Cochran RN Outcome: Progressing 05/21/2022 1103 by Christy Cochran RN Outcome: Progressing Goals: Clinical Goals for the Shift: Maintain ventilation Summary: progressing D RECORDING TECHNICIAN * Plan of Care - Christy Cochran RN - 05/21/2022 11:03 AM CST Problem: Activity: Goal: Risk for activity intolerance will decrease Outcome: Progressing Problem: Lack of Knowledge: Goal: Knowledge of diagnostic tests will improve Outcome: Progressing Problem: Activity: Goal: Risk for activity intolerance will decrease Outcome: Progressing Problem: Lack of Knowledge: Goal: Knowledge of diagnostic tests will improve Outcome: Progressing Goal: Knowledge of disease or condition will improve Outcome: Progressing Goal: Knowledge of safety precautions will improve Outcome: Progressing Goal: Knowledge of the prescribed therapeutic regimen will improve Outcome: Progressing Problem: Health Behavior: Goal: Ability to state signs and symptoms to report to health care provider will improve Outcome: Progressing Problem: Physical Regulation: Goal: Ability to maintain clinical measurements within normal limits will improve Outcome: Progressing Problem: Infection Risk: Goal: Will remain free from infection Outcome: Progressing Problem: Safety: Goal: Ability to remain free from injury will improve Outcome: Progressing Goal: Will remain free from falls Outcome: Progressing Problem: Self-Care: Goal: Ability to participate in self-care as condition permits will improve Outcome: Progressing Problem: Sensory: Goal: Pain level will decrease Outcome: Progressing Goal: Ability to develop a pain control plan will improve Outcome: Progressing Problem: Skin Integrity: Goal: Risk for impaired skin integrity will decrease Outcome: Progressing Problem: Tissue Perfusion: Goal: Risk factors for ineffective tissue perfusion will decrease Outcome: Progressing Problem: Respiratory: Goal: Ability to achieve and maintain a regular respiratory rate will improve Outcome: Progressing Goal: Ability to maintain a clear airway will improve Outcome: Progressing Goal: Ability to maintain normal pulse oximetry readings will improve Outcome: Progressing Goal: Ability to maintain arterial blood gas levels within normal range will improve Outcome: Progressing Goal: Verbalizations of increased ease of respirations will increase Outcome: Progressing Problem: Lack of Knowledge: Goal: Ability to develop a pain control plan will improve Outcome: Progressing Goal: Ability to identify pain intensity on a pain scale and rate it consistently will improve Outcome: Progressing Goal: Ability to notify healthcare provider of pain before it becomes unmanageable or unbearable will improve Outcome: Progressing Problem: Medication: Goal: Satisfaction with pain management regimen will improve Outcome: Progressing Problem: Sensory: Goal: Ability to identify factors that increase the pain will improve Outcome: Progressing Goal: Pain level will decrease Outcome: Progressing Problem: Health Behavior: Goal: Understanding of discharge needs will improve Outcome: Progressing Goals: Clinical Goals for the Shift: Maintain ventilation Summary: progressing D RECORDING TECHNICIAN * Plan of Deidre Cullen RN - 05/21/2022 3:17 AM CST Problem: Activity: Goal: Risk for activity intolerance will decrease Outcome: Progressing Problem: Health Behavior: Goal: Ability to state signs and symptoms to report to health care provider will improve 05/21/2022 031 by Deidre Preston RN Outcome: Progressing 05/21/2022 0316 by Deidre Preston RN Outcome: Progressing Problem: Physical Regulation: Goal: Ability to maintain clinical measurements within normal limits will improve Outcome: Progressing Problem: Infection Risk: Goal: Will remain free from infection Outcome: Progressing Problem: Safety: Goal: Ability to remain free from injury will improve Outcome: Progressing Goal: Will remain free from falls Outcome: Progressing D RECORDING TECHNICIAN * Plan of Deidre Cullen RN - 05/21/2022 3:16 AM CST Problem: Activity: Goal: Risk for activity intolerance will decrease Outcome: Progressing Problem: Lack of Knowledge: Goal: Knowledge of diagnostic tests will improve Outcome: Progressing Problem: Activity: Goal: Risk for activity intolerance will decrease Outcome: Progressing Problem: Lack of Knowledge: Goal: Knowledge of diagnostic tests will improve Outcome: Progressing Goal: Knowledge of disease or condition will improve Outcome: Progressing Goal: Knowledge of safety precautions will improve Outcome: Progressing Goal: Knowledge of the prescribed therapeutic regimen will improve Outcome: Progressing Problem: Health Behavior: Goal: Ability to state signs and symptoms to report to health care provider will improve Outcome: Progressing D RECORDING TECHNICIAN * Plan of Care - Christy Cochran RN - 05/20/2022 10:25 AM CST Problem: Activity: Goal: Risk for activity intolerance will decrease Outcome: Progressing Problem: Lack of Knowledge: Goal: Knowledge of diagnostic tests will improve Outcome: Progressing Problem: Activity: Goal: Risk for activity intolerance will decrease Outcome: Progressing Problem: Lack of Knowledge: Goal: Knowledge of diagnostic tests will improve Outcome: Progressing Goal: Knowledge of disease or condition will improve Outcome: Progressing Goal: Knowledge of safety precautions will improve Outcome: Progressing Goal: Knowledge of the prescribed therapeutic regimen will improve Outcome: Progressing Problem: Health Behavior: Goal: Ability to state signs and symptoms to report to health care provider will improve Outcome: Progressing Problem: Physical Regulation: Goal: Ability to maintain clinical measurements within normal limits will improve Outcome: Progressing Problem: Infection Risk: Goal: Will remain free from infection Outcome: Progressing Problem: Safety: Goal: Ability to remain free from injury will improve Outcome: Progressing Goal: Will remain free from falls Outcome: Progressing Problem: Self-Care: Goal: Ability to participate in self-care as condition permits will improve Outcome: Progressing Problem: Sensory: Goal: Pain level will decrease Outcome: Progressing Goal: Ability to develop a pain control plan will improve Outcome: Progressing Problem: Skin Integrity: Goal: Risk for impaired skin integrity will decrease Outcome: Progressing Problem: Tissue Perfusion: Goal: Risk factors for ineffective tissue perfusion will decrease Outcome: Progressing Problem: Respiratory: Goal: Ability to achieve and maintain a regular respiratory rate will improve Outcome: Progressing Goal: Ability to maintain a clear airway will improve Outcome: Progressing Goal: Ability to maintain normal pulse oximetry readings will improve Outcome: Progressing Goal: Ability to maintain arterial blood gas levels within normal range will improve Outcome: Progressing Goal: Verbalizations of increased ease of respirations will increase Outcome: Progressing Problem: Lack of Knowledge: Goal: Ability to develop a pain control plan will improve Outcome: Progressing Goal: Ability to identify pain intensity on a pain scale and rate it consistently will improve Outcome: Progressing Goal: Ability to notify healthcare provider of pain before it becomes unmanageable or unbearable will improve Outcome: Progressing Problem: Medication: Goal: Satisfaction with pain management regimen will improve Outcome: Progressing Problem: Sensory: Goal: Ability to identify factors that increase the pain will improve Outcome: Progressing Goal: Pain level will decrease Outcome: Progressing Goals: Clinical Goals for the Shift: Maintain ventilation Summary: progressing D RECORDING TECHNICIAN * Plan of Care - Debi Javier, RON - 05/20/2022 8:38 AM CST Problem: Respiratory: Goal: Ability to achieve and maintain a regular respiratory rate will improve Outcome: Progressing Goal: Ability to maintain a clear airway will improve Outcome: Progressing Goal: Ability to maintain normal pulse oximetry readings will improve Outcome: Progressing Goal: Ability to maintain arterial blood gas levels within normal range will improve Outcome: Progressing Goal: Verbalizations of increased ease of respirations will increase Outcome: Progressing D RECORDING TECHNICIAN * Plan of Care - Bouchra Pina CRTT - 05/19/2022 8:13 PM CST Problem: Respiratory: Goal: Ability to achieve and maintain a regular respiratory rate will improve Outcome: Progressing Goal: Ability to maintain a clear airway will improve Outcome: Progressing Goal: Ability to maintain normal pulse oximetry readings will improve Outcome: Progressing Goal: Ability to maintain arterial blood gas levels within normal range will improve Outcome: Progressing Goal: Verbalizations of increased ease of respirations will increase Outcome: Progressing D RECORDING TECHNICIAN * Plan of Care - Shanti Bean CRTT - 05/19/2022 3:04 PM CST Problem: Respiratory: Goal: Ability to achieve and maintain a regular respiratory rate will improve Outcome: Progressing Goal: Ability to maintain a clear airway will improve Outcome: Progressing Goal: Ability to maintain normal pulse oximetry readings will improve Outcome: Progressing Goal: Ability to maintain arterial blood gas levels within normal range will improve Outcome: Progressing Goal: Verbalizations of increased ease of respirations will increase Outcome: Progressing D RECORDING TECHNICIAN * Plan of Care - Larisa Umanzor RN - 05/19/2022 4:06 AM CST Problem: Activity: Goal: Risk for activity intolerance will decrease Outcome: Progressing Problem: Lack of Knowledge: Goal: Knowledge of diagnostic tests will improve Outcome: Progressing Problem: Activity: Goal: Risk for activity intolerance will decrease Outcome: Progressing Problem: Lack of Knowledge: Goal: Knowledge of diagnostic tests will improve Outcome: Progressing Goal: Knowledge of disease or condition will improve Outcome: Progressing Goal: Knowledge of safety precautions will improve Outcome: Progressing Goal: Knowledge of the prescribed therapeutic regimen will improve Outcome: Progressing Problem: Health Behavior: Goal: Ability to state signs and symptoms to report to health care provider will improve Outcome: Progressing Problem: Physical Regulation: Goal: Ability to maintain clinical measurements within normal limits will improve Outcome: Progressing Problem: Infection Risk: Goal: Will remain free from infection Outcome: Progressing Problem: Safety: Goal: Ability to remain free from injury will improve Outcome: Progressing Goal: Will remain free from falls Outcome: Progressing Problem: Self-Care: Goal: Ability to participate in self-care as condition permits will improve Outcome: Progressing Problem: Sensory: Goal: Pain level will decrease Outcome: Progressing Goal: Ability to develop a pain control plan will improve Outcome: Progressing Problem: Skin Integrity: Goal: Risk for impaired skin integrity will decrease Outcome: Progressing Problem: Tissue Perfusion: Goal: Risk factors for ineffective tissue perfusion will decrease Outcome: Progressing Goals: Clinical Goals for the Shift: Maintain ventilation Summary: Patient alert and oriented x 4. Oriented patient to room set-up. 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 Kept HOB elevated. D RECORDING TECHNICIAN documented in this encounter Plan of Treatment Pending Results Name Type Priority Associated Diagnoses Date /Time Magnesium Lab STAT 05/18/2022 9:1 0 PM SOUND RECORDING TECHNICIAN Scheduled Orders Name Type Priority Associated Diagnoses Orde r Schedule Magnesium Lab STAT Once for 1 Occurrences starting 05/18/2022 until 05/18/2022 Aerobic culture and gram stain Sputum Expectorated Microbiology Routine Once for 1 Occurrences starting 05/19/2022 until 05/19/2022 Legionella antigen Urine Microbiology Routine Once for 1 Occurrences starting 05/19/2022 until 05/19/2022 documented as of this encounter Procedures Procedure Name Priority Date/Time Associated Diagnosis Comments EGFR Routine 05/22/2022 5:24 AM SOUND RECORDING TECHNICIAN DIFFERENTIAL AUTO Routine 05/22/2022 5:2 4 AM SOUND RECORDING TECHNICIAN CBC WITH AUTO DIFFERENTIAL Routine 05/22/2022 5:24 AM SOUND RECORDING TECHNICIAN BASIC METABOLIC PANEL Routine 05/22/2022 5:24 AM SOUND RECORDING TECHNICIAN PULMONARY FUNCTION TEST (PFT) Routine 05/21/2022 2:46 PM SOUND RECORDING TECHNICIAN EGFR Routine 05/21/2022 8:12 AM SOUND RECORDING TECHNICIAN DIFFERENTIAL AUTO Routine 05/21/2022 8:1 2 AM SOUND RECORDING TECHNICIAN CBC WITH AUTO DIFFERENTIAL Routine 05/21/2022 8:12 AM SOUND RECORDING TECHNICIAN BASIC METABOLIC PANEL Routine 05/21/2022 8:12 AM SOUND RECORDING TECHNICIAN LIPID PANEL Routine 05/20/2022 3:44 PM SOUND RECORDING TECHNICIAN TRANSTHORACIC ECHO (TTE) COMPLETE W DOPPLER/CF WO CONTRAST Routine 05/20/2022 10:06 AM SOUND RECORDING TECHNICIAN EGFR Routine 05/20/2022 5:27 AM SOUND RECORDING TECHNICIAN DIFFERENTIAL AUTO Routine 05/20/2022 5:2 7 AM SOUND RECORDING TECHNICIAN CBC WITH AUTO DIFFERENTIAL Routine 05/20/2022 5:27 AM SOUND RECORDING TECHNICIAN [id number] Routine 05/20/2022 5 :27 AM SOUND RECORDING TECHNICIAN MAGNESIUM Routine 05/20/2022 5:27 AM SOUND RECORDING TECHNICIAN BASIC METABOLIC PANEL Routine 05/20/2022 5:27 AM SOUND RECORDING TECHNICIAN PEP THERAPY Routine 05/19/2022 11:13 AM SOUND RECORDING TECHNICIAN PEP THERAPY Routine 05/19/2022 11:13 AM SOUND RECORDING TECHNICIAN PEP THERAPY Routine 05/19/2022 11:13 AM SOUND RECORDING TECHNICIAN TROPONIN T HIGH-SENSITIVITY 6-HOUR Timed 05/19/2022 7:45 AM SOUND RECORDING TECHNICIAN TROPONIN T HIGH-SENSITIVITY 4-HR Timed 05/19/2022 5:35 AM SOUND RECORDING TECHNICIAN CT CHEST PE W CONTRAST ED 10:10 PM SOUND RECORDING TECHNICIAN XR CHEST 1 VIEW ED 05/18/2022 10:00 PM SOUND RECORDING TECHNICIAN BLOOD GAS, ARTERIAL STAT 05/18/2022 9 :55 PM SOUND RECORDING TECHNICIAN ECG 12-LEAD STAT 05/18/2022 9:30 PM SOUND RECORDING TECHNICIAN TROPONIN T HIGH-SENSITIVITY SERIES (BASELINE, 2HR, 4HR, 6HR) STAT 05/18/2022 9:10 PM SOUND RECORDING TECHNICIAN INFLUENZA A/B, RSV, AND COVID-19 PCR Routine 05/18/2022 9:10 PM SOUND RECORDING TECHNICIAN SEPSIS LACTATE WITH REFLEX STAT 05/18/2022 9:10 PM SOUND RECORDING TECHNICIAN EGFR STAT 05/18/2022 9:10 PM SOUND RECORDING TECHNICIAN DIFFERENTIAL AUTO STAT 05/18/2022 9:1 0 PM SOUND RECORDING TECHNICIAN PRO B-TYPE NATRIURETIC PEPTIDE STAT 05/18/2022 9:10 PM SOUND RECORDING TECHNICIAN CBC WITH AUTO DIFFERENTIAL STAT 05/18/2022 9:10 PM SOUND RECORDING TECHNICIAN D-DIMER, QUANTITATIVE STAT 05/18/2022 9:10 PM SOUND RECORDING TECHNICIAN MAGNESIUM STAT 05/18/2022 9:10 PM SOUND RECORDING TECHNICIAN COMPREHENSIVE METABOLIC PANEL STAT 05/18/2022 9:10 PM SOUND RECORDING TECHNICIAN documented in this encounter Results * eGFR (05/22/2022 5:24 AM SOUND RECORDING TECHNICIAN) Pathologist [facility] eGFR 85 mL/min/1. 73 m2 JUDYGWENDOLYN HONG Comment: Interpretive Data Reference Interval Normal ?>/= [...] interpretive data was last reviewed 2021. Blood 05/22/2022 5:24 AM SOUND RECORDING TECHNICIAN 05/22/2022 6:20 AM SOUND RECORDING TECHNICIAN Heather Alberto NP LAB BLOOD ORDERABLES Kathy rivera Result [facility] [id number] [facility] Department [place] [address] * Differential, auto (05/22/2022 5:24 AM SOUND RECORDING TECHNICIAN) Pathologist [facility] Neutrophil abs 6.4 1.7 - 6.5 K/cumm [facility] Imm gran abs 0.0 0.0 - 0.1 K/cumm [facility] Lymphocyte abs 2.4 0.8 - 3.3 K/cumm [facility] Monocyte abs 0.7 0.2 - 0.8 K/cumm [facility] Eosinophil abs 0.4 0.0 - 0.5 K/cumm [facility] Basophil abs 0.1 0.0 - 0.1 K/cumm [facility] Neutrophil pct 64.5 % [facility] Comment: Interpretive Data Percent cell count reference ranges are not reported, since discordance with absolute values may lead to misinterpretation of CBC data. Current Interpretive Data was last revised on 2017. Imm gran pct 0.4 % [facility] Comment: Interpretive Data Percent cell count reference ranges are not reported, since discordance with absolute values may lead to misinterpretation of CBC data. Current Interpretive Data was last revised on 2017. Lymphocyte pct 24.2 % [facility] Comment: Interpretive Data Percent cell count reference ranges are not reported, since discordance with absolute values may lead to misinterpretation of CBC data. Current Interpretive Data was last revised on 2017. Monocyte pct 6.8 % [facility] Comment: Interpretive Data Percent cell count reference ranges are not reported, since discordance with absolute values may lead to misinterpretation of CBC data. Current Interpretive Data was last revised on 2017. Eosinophil pct 3.5 % [facility] Comment: Interpretive Data Percent cell count reference ranges are not reported, since discordance with absolute values may lead to misinterpretation of CBC data. Current Interpretive Data was last revised on 2017. Basophil pct 0.6 % [facility] Comment: Interpretive Data Percent cell count reference ranges are not reported, since discordance with absolute values may lead to misinterpretation of CBC data. Current Interpretive Data was last revised on 2017. Blood 05/22/2022 5:24 AM SOUND RECORDING TECHNICIAN 05/22/2022 6:20 AM SOUND RECORDING TECHNICIAN Heather Alberto NP LAB BLOOD ORDERABLES Kathy rivera Result [facility] [address] [facility] Department [place] [address] * CBC with auto differential (05/22/2022 5:24 AM SOUND RECORDING TECHNICIAN) [facility] WBC 9.9 3.8 - 9.9 K/cumm [facility] Hgb 13.3 11.9 - 15.5 g/dL [facility] Hct 39.9 35.6 - 45.5 % [facility] Plt 250 150 - 400 K/cumm [facility] MPV 9.7 9.1 - 12.3 fL [facility] RBC 4.35 3.90 - 5.20 M/cumm [facility] MCV 91.7 81.3 - 96.4 fL [facility] MCH 30.6 27.1 - 33.3 pg [facility] MCHC 33.3 32.3 - 35.7 g/dL [facility] RDW CV 12.4 11.1 - 14.9 % [facility] RDW SD 41.6 35.7 - 48.1 fL [facility] NRBC abs 0.00 0.00 - 0.01 K/cumm [facility] Blood 05/22/2022 5:24 AM SOUND RECORDING TECHNICIAN 05/22/2022 6:20 AM SOUND RECORDING TECHNICIAN Heather Alberto NP LAB BLOOD ORDERABLES Kathy rivera Result [place] [id number] [facility] Department [place] [address] * Basic metabolic panel (05/22/2022 5:24 AM SOUND RECORDING TECHNICIAN) [facility] Sodium 138 135 - 145 mmol/L [facility] Potassium, pl 4.0 3.3 - 4.9 mmol/L [facility] Chloride 100 97 - 110 mmol/L [facility] CO2 29 22 - 32 mmol/L [facility] Anion gap 9 2 - 15 mmol/L [facility] BUN 13 8 - 25 mg/dL [facility] Creatinine 0.80 0.60 - 1.10 mg/dL [facility] Glucose 90 70 - 199 mg/dL [facility] Comment: Interpretive Data Fasting glucose >/= [...] interpretive data was last revised 2022. Calcium 9.4 8.5 - 10.3 mg/dL [facility] Blood 05/22/2022 5:24 AM SOUND RECORDING TECHNICIAN 05/22/2022 6:20 AM SOUND RECORDING TECHNICIAN Heather Alberto NP LAB BLOOD ORDERABLES Kathy rivera Result [facility] [id number] [facility] Department [place] [address] * (ABNORMAL) Pulmonary Function Test -[facility]; Full PFT in PFT Lab (05/21/2022 2:46 PM SOUND RECORDING TECHNICIAN) [facility] FVC POST 2.14(L) 2.35 - 3.83 L 05/21/2022 2:43 PM [facility] FVC PRE 1.92(L) 2.35 - 3.83 L 05/21/2022 2:43 PM [facility] FEV1 POST 1.33(L) 1.86 - 3.03 L 05/21/2022 2:43 PM [facility] FEV1 PRE 1.03(L) 1.86 - 3.03 L 05/21/2022 2:43 PM [facility] [id number] 61.85(L) 67.69 - 91.52 % 05/21/2022 2:43 PM [facility] [id number] 54.05(L) 67.69 - 91.52 % 05/21/2022 2:43 PM [facility] DLW23-25% POST 0.78(L) 1.18 - 3.36 L/s 05/21/2022 2:43 PM [facility] LRW95-46% PRE 0.46(L) 1.18 - 3.36 L/s 05/21/2022 2:43 PM SOUND RECORDING TECHNICIAN [facility] PEF POST 3.77(L) 4.47 - 7.43 L/s 05/21/2022 2:43 PM SOUND RECORDING TECHNICIAN [facility] PEF PRE 3.63(L) 4.47 - 7.43 L/s 05/21/2022 2:43 PM SOUND RECORDING TECHNICIAN [facility] FET 100% POST 4.30 sec 05/21/2022 2:43 PM SOUND RECORDING TECHNICIAN [facility] FET 100% PRE 5.62 sec 05/21/2022 2:43 PM SOUND RECORDING TECHNICIAN [facility] FIVC POST 1.97(L) 2.09 - 3.47 L 05/21/2022 2:43 PM SOUND RECORDING TECHNICIAN [facility] FIVC PRE 1.50(L) 2.09 - 3.47 L 05/21/2022 2:43 PM SOUND RECORDING TECHNICIAN [facility] FIF50% POST 4.69 L/s 05/21/2022 2:43 PM SOUND RECORDING TECHNICIAN [facility] FIF50% PRE 3.06 L/s 05/21/2022 2:43 PM SOUND RECORDING TECHNICIAN [facility] VC PRE 2.30 2.09 - 3.47 L 05/21/2022 2:43 PM SOUND RECORDING TECHNICIAN [facility] TLC PRE 4.16 3.78 - 5.76 L 05/21/2022 2:43 PM SOUND RECORDING TECHNICIAN [facility] RV PRE 1.86 1.25 - 2.40 L 05/21/2022 2:43 PM [facility] FRC PL PRE 2.73 L 05/21/2022 2:43 PM [facility] ERV PRE 0.86(H) 0.82 - 0.82 L 05/21/2022 2:43 PM SOUND RECORDING TECHNICIAN [facility] IC PRE 1.48(L) 1.97 - 1.97 L 05/21/2022 2:43 PM SOUND RECORDING TECHNICIAN [facility] RAW PRE 13.04(H) 3.06 - 3.06 cmH2O*s/L 05/21/2022 2:43 PM SOUND RECORDING TECHNICIAN [facility] BF RES 24.59 BPM 05/21/2022 2:43 PM SOUND RECORDING TECHNICIAN [facility] VTG RAW 2.96 L 05/21/2022 2:43 PM SOUND RECORDING TECHNICIAN [facility] VTG 2.96 L 05/21/2022 2:43 PM [facility] DLCOc SB 11.78(L) 16.68 - 28.15 ml/(min*mm Hg) 05/21/2022 2:43 PM [facility] DLCOc SB 11.78(L) 16.68 - 28.15 ml/(min*mm Hg) 05/21/2022 2:43 PM [facility] VA 3.15(L) 4.62 - 4.62 L 05/21/2022 2:43 PM [facility] DLCO/VA PRE 3.75 3.15 - 6.25 ml/(min*mm Hg*L) 05/21/2022 2:43 PM [facility] DLCOc SB 3.75 3.15 - 6.25 ml/(min*mm Hg*L) 05/21/2022 2:43 PM [facility] Anatomical Region Laterality Modality PFT 05/21/2022 1:17 PM SOUND RECORDING TECHNICIAN Narrative 05/22/2022 10:19 AM [facility] Spirometry data is compatible with moderate obstructive pulmonary disease with a positive bronchodilator response Lung volumes are normal. DLCO is reduced compatible with diffusion impairment. ??Findings can be seen with pulmonary parenchymal / pulmonary vascular disorders. ??Suggest clinical correlation. Electronically signed by Jared Fragoso MD, [facility] Pul[facility] Critical Care Medicine [facility] us Donte Campuzano MD PFT ORDERABLES Final Res ult * eGFR (05/21/2022 8:12 AM SOUND RECORDING TECHNICIAN) [facility] eGFR 100 mL/min/1. 73 m2 [facility] Comment: Interpretive Data Reference Interval Normal ?>/= [...] interpretive data was last reviewed 2021. Blood 05/21/2022 8:12 AM SOUND RECORDING TECHNICIAN 05/21/2022 9:26 AM SOUND RECORDING TECHNICIAN Heather Alberto NP LAB BLOOD ORDERABLES Kathy rivera Result [facility] [id number] [facility] Department of Laboratories [place], [place] [id number] * Differential, auto (05/21/2022 8:12 AM SOUND RECORDING TECHNICIAN) Pathologist [facility] Neutrophil abs 6.2 1.7 - 6.5 K/cumm [facility] Imm gran abs 0.1 0.0 - 0.1 K/cumm [facility] Lymphocyte abs 2.5 0.8 - 3.3 K/cumm [facility] Monocyte abs 0.6 0.2 - 0.8 K/cumm [facility] Eosinophil abs 0.3 0.0 - 0.5 K/cumm [facility] Basophil abs 0.1 0.0 - 0.1 K/cumm [facility] Neutrophil pct 63.3 % [facility] Comment: Interpretive Data Percent cell count reference ranges are not reported, since discordance with absolute values may lead to misinterpretation of CBC data. Current Interpretive Data was last revised on 2017. Imm gran pct 1.1 % [facility] Comment: Interpretive Data Percent cell count reference ranges are not reported, since discordance with absolute values may lead to misinterpretation of CBC data. Current Interpretive Data was last revised on 2017. Lymphocyte pct 26.0 % [facility] Comment: Interpretive Data Percent cell count reference ranges are not reported, since discordance with absolute values may lead to misinterpretation of CBC data. Current Interpretive Data was last revised on 2017. Monocyte pct 6.2 % [facility] Comment: Interpretive Data Percent cell count reference ranges are not reported, since discordance with absolute values may lead to misinterpretation of CBC data. Current Interpretive Data was last revised on 2017. Eosinophil pct 2.8 % [facility] Comment: Interpretive Data Percent cell count reference ranges are not reported, since discordance with absolute values may lead to misinterpretation of CBC data. Current Interpretive Data was last revised on 2017. Basophil pct 0.6 % [facility] Comment: Interpretive Data Percent cell count reference ranges are not reported, since discordance with absolute values may lead to misinterpretation of CBC data. Current Interpretive Data was last revised on 2017. Blood 05/21/2022 8:12 AM SOUND RECORDING TECHNICIAN 05/21/2022 9:26 AM SOUND RECORDING TECHNICIAN Heather Alberto NP LAB BLOOD ORDERABLES Kathy rivera Result [facility] [address] [place] [address] * CBC with auto differential (05/21/2022 8:12 AM SOUND RECORDING TECHNICIAN) WBC 9.7 3.8 - 9.9 K/cumm [facility] Hgb 13.3 11.9 - 15.5 g/dL [facility] Hct 40.1 35.6 - 45.5 % [facility] Plt 255 150 - 400 K/cumm [facility] MPV 10.0 9.1 - 12.3 fL [facility] RBC 4.37 3.90 - 5.20 M/cumm [facility] MCV 91.8 81.3 - 96.4 fL [facility] MCH 30.4 27.1 - 33.3 pg [facility] MCHC 33.2 32.3 - 35.7 g/dL [facility] RDW CV 12.6 11.1 - 14.9 % [facility] RDW SD 42.3 35.7 - 48.1 fL [facility] NRBC abs 0.00 0.00 - 0.01 K/cumm [facility] Blood 05/21/2022 8:12 AM SOUND RECORDING TECHNICIAN 05/21/2022 9:26 AM SOUND RECORDING TECHNICIAN [facility] LAB BLOOD ORDERABLES Kathy l Result [facility] [address] [place] [address] * Basic metabolic panel (05/21/2022 8:12 AM SOUND RECORDING TECHNICIAN) Sodium 136 135 - 145 mmol/L [facility] Potassium, pl 3.9 3.3 - 4.9 mmol/L [facility] Chloride 98 97 - 110 mmol/L [facility] CO2 27 22 - 32 mmol/L [facility] Anion gap 11 2 - 15 mmol/L [facility] BUN 14 8 - 25 mg/dL [facility] Creatinine 0.70 0.60 - 1.10 mg/dL [facility] Glucose 83 70 - 199 mg/dL [facility] Comment: Interpretive Data Fasting glucose >/= [...] interpretive data was last revised 2022. Calcium 9.4 8.5 - 10.3 mg/dL [facility] Blood 05/21/2022 8:12 AM SOUND RECORDING TECHNICIAN 05/21/2022 9:26 AM SOUND RECORDING TECHNICIAN Heather Tj [employer]OMER [employer]PERVISOR LAB BLOOD ORDERABLES Kathy l Result [facility] [address] Department [place] [address] * (ABNORMAL) Lipid panel (05/20/2022 3:44 PM SOUND RECORDING TECHNICIAN) [facility] Cholesterol 250(H) 30 - 199 mg/dL [facility] Comment: Interpretive Data Ages < or = 19 years ??Acceptable: ? <170 mg/dL ??Borderline high: ??170-199 mg/dL ??High: ? >or= 200 mg/dL Ages > or = 20 years ??Desirable: ?<200 mg/dL ??Borderline high: ??200-239 mg/dL ??High: ? >or= 240 mg/dL Literature References: 1. Expert Panel on Integrated Guidelines for Cardiovascular Health and Risk Reduction in Children and Adolescents. Pediatrics 2011;128:S213 2. NCEP Expert Panel. Circulation 2004;110:227 Current Interpretive Data was last revised on 2017. Triglycerides 107 <=149 mg/dL [facility] Comment: Interpretive Data Ages < or = 9 years ??Acceptable: ? <75 mg/dL ??Borderline high: ??75-99 mg/dL ??High: ? >or= 100 mg/dL Ages 10 to 20 years ??Acceptable: ? <90 mg/dL ??Borderline high: ??90-129 mg/dL ??High: ? >or= 130 mg/dL Ages > or = 20 years ??Desirable: ?<150 mg/dL ??Borderline high: ??150-199 mg/dL ??High: ? 200-499 mg/dL ?Very high: ?? >or= 499 mg/dL Literature References: 1. Expert Panel on Integrated Guidelines for Cardiovascular Health and Risk Reduction in Children and Adolescents. Pediatrics 2011;128:S213 2. NCEP Expert Panel. Circulation 2004;110:227 Current Interpretive Data was last revised on 2017. HDL 63 >=40 mg/dL [facility] Comment: Interpretive Data Ages < or = 19 years ??Acceptable: ? >45 mg/dL ??Borderline low: ?? 40-45 mg/dL ??Low: ? <40 mg/dL Ages > or = 20 years ??Desirable: ?>or= 60 mg/dL ??Low: ? <40 mg/dL Literature References: 1. Expert Panel on Integrated Guidelines for Cardiovascular Health and Risk Reduction in Children and Adolescents. Pediatrics 2011;128:S213 2. NCEP Expert Panel. Circulation 2004;110:227 Current Interpretive Data was last revised on 2017. LDL, calculated 166(H) <=129 mg/dL [facility] Comment: Interpretive Data Ages < or = 19 years ??Acceptable: ? <110 mg/dL ??Borderline high: ??110-129 mg/dL ??High: ?>or= 130 mg/dL Ages > or = 20 years ??Optimal: ? <100 mg/dL ??Near optimal: ?100-129 mg/dL ??Borderline high: ?? 130-159 mg/dL ??High: ?>160 mg/dL Literature References: 1. Expert Panel on Integrated Guidelines for Cardiovascular Health and Risk Reduction in Children and Adolescents. Pediatrics 2011;128:S213 2. NCEP Expert Panel. Circulation 2004;110:227 Current Interpretive Data was last revised on 2017. Non-HDL Cholesterol 187 mg/dL [facility] Comment: Interpretive Data Ages < or = 19 years ??Acceptable: ?<120 mg/dL ??Borderline high: ??120-144 mg/dL ??High: ?>145 mg/dL Ages > or = 20 years ??When triglycerides are >200 mg/dL, Non-HDL cholesterol is a secondary target of ? therapy with treatment goals that are 30 mg/dL greater than the LDL cholesterol target. ? Literature References: 1. Expert Panel on Integrated Guidelines for Cardiovascular Health and Risk Reduction in Children and Adolescents. Pediatrics 2011;128:S213 2. NCEP Expert Panel. Circulation 2004;110:227 Current Interpretive Data was last revised on 2017. Chol/HDL ratio 4 [facility] Blood 05/20/2022 3:44 PM SOUND RECORDING TECHNICIAN 05/20/2022 3:50 PM SOUND RECORDING TECHNICIAN us Dorene Portillo MD LAB BLOOD ORDERABLES Final Resul t [facility] [address] [place] [address] * TRANSTHORACIC ECHO (TTE) COMPLETE W DOPPLER/CF WO CONTRAST (05/20/2022 10:06 AM SOUND RECORDING TECHNICIAN) Anatomical Region Laterality Modality Ultrasound 05/20/2022 10:0 6 AM SOUND RECORDING TECHNICIAN Narrative 05/20/2022 6:53 PM SOUND RECORDING TECHNICIAN ? Adult Echocardiogram + ----- + :Name: LESLIE GAMA ?? Study Date: 05/20/2022 ?Status: MHB ?: : ?Patient Location: B 1 CTR^[id number]^MHHeight: 63 in ?: : ?Weight: 110 lbBP: 115/56 mmHg: :: 1965 ? Gender: Female ?BSA: 1.5 m2 ?: :Reason For Study: SOB ?: :Ordering Physician: ?: :TJ, HEATHER ? : : ? : :Performed By: Verito ?: :Ross, RCS ?: + ----- + Procedure A two-dimensional transthoracic echocardiogram with color flow and Doppler was performed. Left Ventricle The left ventricle is normal in size. There is normal left ventricular wall thickness. Left ventricular systolic function is normal. Ejection Fraction = 55-60%. The left ventricular wall motion is normal. There is no obvious thrombus noted. Right Ventricle The right ventricle is normal size. The right ventricular systolic function is normal. Atria The left atrial size is normal. Right atrial size is normal. The interatrial septum is intact with no evidence for an atrial septal defect. Mitral Valve Mitral valve leaflets appear redundant. There is borderline mitral valve prolapse. There is no mitral regurgitation noted. Tricuspid Valve The tricuspid valve is normal in structure and function. Aortic Valve Aortic valve structure is normal. No aortic stenosis . No aortic regurgitation is present. Pulmonic Valve The pulmonic valve is not well visualized. Great Vessels The aortic root is normal size. IVC appears normal in size. Normal right heart pressures. Pericardium There is no pericardial effusion. There is no pleural effusion. Diastology Grade I diastolic dysfunction, (abnormal relaxation pattern). E/E prime ratio is 8 -15 which is in the indeterminate zone. Interpretation Summary Left ventricular systolic function is normal. Ejection Fraction = 55-60%. Mitral valve leaflets appear redundant. There is borderline mitral valve prolapse. There is no mitral regurgitation noted. Normal right heart pressures. Grade I diastolic dysfunction, (abnormal relaxation pattern). + + :Measurements with Normals ?: :IVSd: ?(0.6-1.2 ?? LVIDd: ?(3.5-5.7 ?? Ao root diam: ?(2.0-3.7 ?? : :0.67 cm ?cm) ?4.0 cm ?cm) ?2.8 cm ? cm) ?: :LVPWd: ? (0.6-1.1 ?? LVIDs: ?(3.1-4.6 ?? LA dimension: ?(1.9-4.0 ?? : :0.83 cm ?cm) ?2.7 cm ?cm) ?2.1 cm ? cm) ?: + + MMode/2D Measurements & Calculations LVPWs: 0.60 cm FS: 32.3 % ? Ao root area: 6.2 cm2 ??LVOT diam: 2.0 cm ? EDV(Teich): 71.3 ml ? LVOT area: 3.1 cm2 ? ESV(Teich): 27.8 ml Doppler Measurements & Calculations MV E max nayeli: ?Ao V2 max: ?LV V1 max PG: ?PA V2 max: 75.4 cm/sec ?103.0 cm/sec ?2.5 mmHg ? 81.4 cm/sec MV A max nayeli: ?Ao max P.2 mmHg LV V1 max: ? PA max P.0 cm/sec ?GUILLE(V,D): 2.4 cm2 ?? 78.4 cm/sec ?2.7 mmHg MV E/A: 0.97 ? PI end-d nayeli: ?TR max nayeli: 97.7 cm/sec ?212.0 cm/sec ? TR max P.0 mmHg Electronically signed by: Sultan Sherrill MD 05/20/2022 06:53 PM Procedure Note Sultan Elvin Mccartney MD - 05/20/2022 Adult Echocardiogram + ----- + :Name: LESLIE GAMA Study Date: 05/20/2022Status: MHB : : Patient Location: [facility] 1CTR^[id number]^Height: 63 in : : : 110 lbBP: 115/56 mmHg: :: 1965 Gender: FemaleBSA: 1.5 m2 : :Reason For Study: SOB: :Ordering Physician:: :HEATHER ALBERTO: :: :Performed By: Verito: :PACO Ramirez: + ----- + Procedure A two-dimensional transthoracic echocardiogram with color flow and Dopplerwas performed. Left Ventricle The left ventricle is normal in size. There is normal left ventricularwall thickness. Left ventricular systolic function is normal. Ejection Fraction= 55-60%. The left ventricular wall motion is normal. There is no obvious thrombus noted. Right Ventricle The right ventricle is normal size. The right ventricular systolicfunction is normal. Atria The left atrial size is normal. Right atrial size is normal. Theinteratrial septum is intact with no evidence for an atrial septal defect. Mitral Valve Mitral valve leaflets appear redundant. There is borderline mitral valve prolapse. There is no mitral regurgitation noted. Tricuspid Valve The tricuspid valve is normal in structure and function. Aortic Valve Aortic valve structure is normal. No aortic stenosis . No aorticregurgitation is present. Pulmonic Valve The pulmonic valve is not well visualized. Great Vessels The aortic root is normal size. IVC appears normal in size. Normal rightheart pressures. Pericardium There is no pericardial effusion. There is no pleural effusion. Diastology Grade I diastolic dysfunction, (abnormal relaxation pattern). E/E primeratio is 8 -15 which is in the indeterminate zone. Interpretation Summary Left ventricular systolic function is normal. Ejection Fraction = 55-60%. Mitral valve leaflets appear redundant. There is borderline mitral valve prolapse. There is no mitral regurgitation noted. Normal right heart pressures. Grade I diastolic dysfunction, (abnormal relaxation pattern). + + :Measurements with Normals: :IVSd: (0.6-1.2 LVIDd: (3.5-5.7 Ao root diam:(2.0-3.7 : :0.67 cm cm) 4.0 cm cm) 2.8 cm cm): :LVPWd: (0.6-1.1 LVIDs: (3.1-4.6 LA dimension:(1.9-4.0 : :0.83 cm cm) 2.7 cm cm) 2.1 cm cm): + + MMode/2D Measurements & Calculations LVPWs: 0.60 cm FS: 32.3 % Ao root area: 6.2 cm2 LVOT diam: 2.0cm EDV(Teich): 71.3 ml LVOT area: 3.1cm2 ESV(Teich): 27.8 ml Doppler Measurements & Calculations MV E max nayeli: Ao V2 max: LV V1 max PG: PA V2 max: 75.4 cm/sec 103.0 cm/sec 2.5 mmHg 81.4 cm/sec MV A max nayeli: Ao max P.2 mmHg LV V1 max: PA max P.0 cm/sec GUILLE(V,D): 2.4 cm2 78.4 cm/sec 2.7 mmHg MV E/A: 0.97 PI end-d nayeli: TR max nayeli: 97.7 cm/sec 212.0 cm/sec TR max P.0 mmHg Electronically signed by: Sultan Sherrill MD 05/20/2022 06:53 PM us Heather Alberto NP CV ECHO PROCEDURES Final Result * eGFR (05/20/2022 5:27 AM SOUND RECORDING TECHNICIAN) eGFR 104 mL/min/1. 73 m2 [facility] Comment: Interpretive Data Reference Interval Normal ?>/= [...] interpretive data was last reviewed 2021. Blood 05/20/2022 5:27 AM SOUND RECORDING TECHNICIAN 05/20/2022 6:29 AM SOUND RECORDING TECHNICIAN Heather Alberto NP LAB BLOOD ORDERABLES Kathy l Result [facility] [address] Department [place] [address] * (ABNORMAL) Differential, auto (05/20/2022 5:27 AM SOUND RECORDING TECHNICIAN) Pathologist [facility] Neutrophil abs 10.9(H) 1.7 - 6.5 K/cumm [facility] Imm gran abs 0.1 0.0 - 0.1 K/cumm [facility] Lymphocyte abs 1.2 0.8 - 3.3 K/cumm [facility] Monocyte abs 0.6 0.2 - 0.8 K/cumm [facility] Eosinophil abs 0.0 0.0 - 0.5 K/cumm [facility] Basophil abs 0.0 0.0 - 0.1 K/cumm [facility] Neutrophil pct 85.0 % [facility] Comment: Interpretive Data Percent cell count reference ranges are not reported, since discordance with absolute values may lead to misinterpretation of CBC data. Current Interpretive Data was last revised on 2017. Imm gran pct 0.5 % [facility] Comment: Interpretive Data Percent cell count reference ranges are not reported, since discordance with absolute values may lead to misinterpretation of CBC data. Current Interpretive Data was last revised on 2017. Lymphocyte pct 9.5 % [facility] Comment: Interpretive Data Percent cell count reference ranges are not reported, since discordance with absolute values may lead to misinterpretation of CBC data. Current Interpretive Data was last revised on 2017. Monocyte pct 4.6 % [facility] Comment: Interpretive Data Percent cell count reference ranges are not reported, since discordance with absolute values may lead to misinterpretation of CBC data. Current Interpretive Data was last revised on 2017. Eosinophil pct 0.2 % [facility] Comment: Interpretive Data Percent cell count reference ranges are not reported, since discordance with absolute values may lead to misinterpretation of CBC data. Current Interpretive Data was last revised on 2017. Basophil pct 0.2 % [facility] Comment: Interpretive Data Percent cell count reference ranges are not reported, since discordance with absolute values may lead to misinterpretation of CBC data. Current Interpretive Data was last revised on 2017. Blood 05/20/2022 5:27 AM SOUND RECORDING TECHNICIAN 05/20/2022 6:29 AM SOUND RECORDING TECHNICIAN Heather Alberto NP LAB BLOOD ORDERABLES Kathy rivera Result [facility] [address] Department [place] [address] * (ABNORMAL) CBC with auto differential (05/20/2022 5:27 AM SOUND RECORDING TECHNICIAN) Pathologist [facility] WBC 12.9(H) 3.8 - 9.9 K/cumm [facility] Hgb 13.0 11.9 - 15.5 g/dL [facility] Hct 39.2 35.6 - 45.5 % [facility] Plt 268 150 - 400 K/cumm [facility] MPV 10.0 9.1 - 12.3 fL [facility] RBC 4.30 3.90 - 5.20 M/cumm [facility] MCV 91.2 81.3 - 96.4 fL [facility] MCH 30.2 27.1 - 33.3 pg [facility] MCHC 33.2 32.3 - 35.7 g/dL [facility] RDW CV 12.7 11.1 - 14.9 % [facility] RDW SD 42.0 35.7 - 48.1 fL [facility] NRBC abs 0.00 0.00 - 0.01 K/cumm [facility] Blood 05/20/2022 5:27 AM SOUND RECORDING TECHNICIAN 05/20/2022 6:29 AM SOUND RECORDING TECHNICIAN Heather Alberto NP LAB BLOOD ORDERABLES Kathy rivera Result [facility] [address] Department of Laboratories [place], [place] [id number] * Basic metabolic panel (05/20/2022 5:27 AM SOUND RECORDING TECHNICIAN) [facility] Sodium 136 135 - 145 mmol/L [facility] Potassium, pl 4.5 3.3 - 4.9 mmol/L [facility] Chloride 99 97 - 110 mmol/L [facility] CO2 28 22 - 32 mmol/L [facility] Anion gap 9 2 - 15 mmol/L [facility] BUN 10 8 - 25 mg/dL [facility] Creatinine 0.60 0.60 - 1.10 mg/dL [facility] Glucose 110 70 - 199 mg/dL [facility] Comment: Interpretive Data Fasting glucose >/= [...] interpretive data was last revised 2022. Calcium 9.5 8.5 - 10.3 mg/dL [facility] Blood 05/20/2022 5:27 AM SOUND RECORDING TECHNICIAN 05/20/2022 6:29 AM SOUND RECORDING TECHNICIAN Heather Alberto NP LAB BLOOD ORDERABLES Kathy l Result Performing Organization Address City/[facility] Co de Phone Number [address] [employer] [address] * [id number] (05/20/2022 5:27 AM SOUND RECORDING TECHNICIAN) alpha-1 antitrypsin 159 90 - 200 mg/dL [facility] Comment:Testing performed by : [facility], [address] [facility], [place]., [address] Blood 05/20/2022 5:27 AM SOUND RECORDING TECHNICIAN 05/20/2022 9:26 AM SOUND RECORDING TECHNICIAN Vic Luna MD LAB BLOOD ORDERABLES F inal Result Performing Organization Address [facility] Co de Phone Number [address] [employer] [place] [address] * Magnesium (05/20/2022 5:27 AM SOUND RECORDING TECHNICIAN) Magnesium 2.2 1.4 - 2.5 mg/dL [facility] Blood 05/20/2022 5:27 AM SOUND RECORDING TECHNICIAN 05/20/2022 6:29 AM SOUND RECORDING TECHNICIAN Heather Alberto NP LAB BLOOD ORDERABLES Kathy l Result Performing Organization Address City/[facility] Co de Phone Number [facility] [address] [facility] [place] [address] * (ABNORMAL) Troponin T high-sensitivity 6-hour (05/19/2022 7:45 AM SOUND RECORDING TECHNICIAN) Trop T hs 34(H) <=14 ng/L [facility] Comment: Interpretive Data For further hscTnT resources including the diagnostic algorithm and an aid in interpretation, copy and paste this link: [email or web address] Current Interpretive Data last revised 2020. Trop T hs delta See Comment ng/L [facility]ONG Comment:Inappropriate collec tion time to report a delta. Trop T hs pct delta See Comment % [facility] Comment:Inappropriate collec tion time to report a delta. Trop T hs interp See Comment [facility]ONG Comment:Inappropriate collec tion time to report a delta. Blood 05/19/2022 7:45 AM SOUND RECORDING TECHNICIAN 05/19/2022 7:50 AM SOUND RECORDING TECHNICIAN us Latisha LACKEY LAB BLOOD ORDERABLES Final Resu lt Performing Organization Address [facility] de Phone Number [facility] [address] [place] [address] * (ABNORMAL) Troponin T high-sensitivity 4-hour (05/19/2022 5:35 AM SOUND RECORDING TECHNICIAN) Trop T hs 41(H) <=14 ng/L [facility] Comment: Interpretive Data For further hscTnT resources including the diagnostic algorithm and an aid in interpretation, copy and paste this link: [email or web address] Current Interpretive Data last revised 2020. Trop T hs delta See Comment ng/L [facility]ONG Comment:Inappropriate collec tion time to report a delta. Trop T hs pct delta See Comment % [facility] Comment:Inappropriate collec tion time to report a delta. Trop T hs interp See Comment [facility] HONG Comment:Inappropriate collec tion time to report a delta. Blood 05/19/2022 5:35 AM SOUND RECORDING TECHNICIAN 05/19/2022 6:09 AM SOUND RECORDING TECHNICIAN us Latisha LACKEY LAB BLOOD ORDERABLES Final Resu lt [facility] [address] [facility] [place] [address] * CT Chest PE (CTA) W Contrast (05/18/2022 10:10 PM SOUND RECORDING TECHNICIAN) Anatomical Region Laterality Modality Body N/A Computed Tomogra phy 05/18/2022 10:1 7 PM SOUND RECORDING TECHNICIAN Narrative 05/18/2022 10:32 PM SOUND RECORDING TECHNICIAN EXAM DESCRIPTION: ?? CT CHEST PE (CTA) W CONTRAST REASON FOR STUDY: ?? Shortness of breath, mid chest pressure for 3 days. TECHNIQUE: CT angiogram of the chest performed with intravenous contrast using helical scanning technique with dynamic intravenous contrast injection. Reconstructed coronal and sagittal MPR images reviewed. All images stored on PACS. ?? 3D MIP images rendered on scanning unit and reviewed at time of interpretation. ??Automated exposure control was used as a dose optimization technique for this examination. CONTRAST TYPE/DOSE: ?? 80mL of IOVERSOL 350 MG IODINE/ML INTRAVENOUS SYRINGE ?? injected via ?? intravenous COMPARISON: ?? Chest x-ray today , CT abdomen and pelvis 02/16/2010 REFERENCE: Per ACR white paper recommendations, unless otherwise specified no follow-up imaging is recommended for incidental renal and adrenal lesions per consensus recommendations based on imaging criteria. Further lab evaluation could be pursued based on clinical findings. FINDINGS: VASCULATURE: ?? No evidence of pulmonary embolus. ??Normal caliber pulmonary arteries and thoracic aorta. LUNGS: ?? Mild bilateral centrilobular emphysema. ??Mild diffuse bronchial wall thickening in both lungs, compatible with bronchitis. ??Moderate multifocal mucous plugging in the bilateral lower lobes, and mild mucous plugging in the peripheral upper lobes. 7 mm indeterminate pulmonary nodule in the anterolateral right lower lobe axial image 106 of 170. ??Adjacent 4 mm nodule on axial image 102 of 170. ?? These are new compared to 02/16/2010. ??Follow-up chest CT in 6 months is recommended per Fleischner criteria. Mucous plugging in inferolateral right lower lobe axial images 111-119 of 170, compatible with a mucocele. ??Mild atelectasis or scarring in the adjacent posterolateral right lower lobe. PLEURA: ?? No effusion. No pneumothorax. MEDIASTINUM/DEJA: ?? No identified masses or abnormal nodes. HEART: ?? Heart size is normal with no pericardial effusion. AXILLA: ?? No adenopathy. CHEST WALL: ?? No masses. ??No subcutaneous air. HARDWARE/LINES/TUBES: ?? None. UPPER ABDOMEN: ?? Cholecystectomy. ??Pneumobilia. MUSCULOSKELETAL: ?? No significant abnormality. OTHER: ?? No significant abnormality. IMPRESSION: ?? No evidence of pulmonary embolus 7 mm indeterminate pulmonary nodule in the anterolateral right lower lobe axial image 106 of 170. ??Adjacent 4 mm nodule axial image 102. ??These are new compared to prior CT 02/16/2010. ??Suggest follow-up chest CT in 6 months per Fleischner criteria. Mild bilateral emphysema. Bronchial wall thickening bilaterally, compatible with bronchitis. ??Multifocal bilateral mucous plugging as described. THIS IS AN ELECTRONICALLY VERIFIED FINAL REPORT 05/18/2022 10:32 PM - Electronically signed by ??Enmanuel PECK D: ??05/18/2022 10:32 PM T: Report ID: [id number] Reading Location: ??[id number] Procedure Note Enmanuel Turner MD - 05/18/2022 EXAM DESCRIPTION: CT CHEST PE (CTA) W CONTRAST REASON FOR STUDY: Shortness of breath, mid chest pressure for 3 days. TECHNIQUE: CT angiogram of the chest performed with intravenous contrastusing helical scanning technique with dynamic intravenous contrast injection. Reconstructed coronal and sagittal MPR images reviewed. All images storedon PACS. 3D MIP images rendered on scanning unit and reviewed at time of interpretation. Automated exposure control was used as a doseoptimization technique for this examination. CONTRAST TYPE/DOSE: 80mL of IOVERSOL 350 MG IODINE/ML INTRAVENOUSSYRINGE injected via intravenous COMPARISON: Chest x-ray today , CT abdomen and pelvis 02/16/2010 REFERENCE: Per ACR white paper recommendations, unless otherwise specifiedno follow-up imaging is recommended for incidental renal and adrenal lesionsper consensus recommendations based on imaging criteria. Further labevaluation could be pursued based on clinical findings. FINDINGS: VASCULATURE: No evidence of pulmonary embolus. Normal caliber pulmonary arteries and thoracic aorta. LUNGS: Mild bilateral centrilobular emphysema. Mild diffuse bronchialwall thickening in both lungs, compatible with bronchitis. Moderate multifocal mucous plugging in the bilateral lower lobes, and mild mucous plugging inthe peripheral upper lobes. 7 mm indeterminate pulmonary nodule in the anterolateral right lower lobe axial image 106 of 170. Adjacent 4 mm nodule on axial image 102 of 170. These are new compared to 02/16/2010. Follow-up chest CT in 6 months is recommended per Fleischner criteria. Mucous plugging in inferolateral right lower lobe axial images 111-119 of170, compatible with a mucocele. Mild atelectasis or scarring in the adjacent posterolateral right lower lobe. PLEURA: No effusion. No pneumothorax. MEDIASTINUM/DEJA: No identified masses or abnormal nodes. HEART: Heart size is normal with no pericardial effusion. AXILLA: No adenopathy. CHEST WALL: No masses. No subcutaneous air. HARDWARE/LINES/TUBES: None. UPPER ABDOMEN: Cholecystectomy. Pneumobilia. MUSCULOSKELETAL: No significant abnormality. OTHER: No significant abnormality. IMPRESSION: No evidence of pulmonary embolus 7 mm indeterminate pulmonary nodule in the anterolateral right lower lobe axial image 106 of 170. Adjacent 4 mm nodule axial image 102. These arenew compared to prior CT 02/16/2010. Suggest follow-up chest CT in 6 monthsper Fleischner criteria. Mild bilateral emphysema. Bronchial wall thickening bilaterally, compatible with bronchitis.Multifocal bilateral mucous plugging as described. THIS IS AN ELECTRONICALLY VERIFIED FINAL REPORT 05/18/2022 10:32 PM - Electronically signed by Enmanuel Turner M.D. DL T: Report ID: [id number] Reading Location: [place] [address] Wilmar Luna MD IMKatherin CT PROCEDURES F inal Result * XR Chest 1 Vw Portable (05/18/2022 10:00 PM SOUND RECORDING TECHNICIAN) Anatomical Region Laterality Modality Body, Chest N/A Computed Radiogr aphy 05/18/2022 10:2 1 PM SOUND RECORDING TECHNICIAN Narrative 05/18/2022 10:24 PM SOUND RECORDING TECHNICIAN EXAM DESCRIPTION: ?? XR CHEST 1 VIEW REASON FOR STUDY: ?? Shortness of breath ?? sob since Friday. Hx mitral valve prolapse. Denies hx copd, asthma. ?? states that she has a history of MVP however has not been evaluated for a long time. ?? Patient denies any fevers or chills per patient denies any productive coughing ?? TECHNIQUE: ?? Single ??radiographic view of the chest acquired. COMPARISON: ?? None FINDINGS: LUNGS/PLEURA: ?? No focal consolidation or pneumothorax. No pleural effusion. HEART/MEDIASTINUM: ?? Heart size is normal. Normal mediastinal and hilar contours. HARDWARE/LINES/TUBES: ?? None. BONES: ?? No acute findings. OTHER: ?? No other significant finding. IMPRESSION: ?? No acute cardiopulmonary abnormality. THIS IS AN ELECTRONICALLY VERIFIED FINAL REPORT 05/18/2022 10:24 PM - Electronically signed by ??Jamal HERNANDEZ D: ??05/18/2022 10:24 PM T: Report ID: [id number] Reading Location: ??[id number] Procedure Note Jamal Henriquez MD PhD - 05/18/2022 EXAM DESCRIPTION: XR CHEST 1 VIEW REASON FOR STUDY: Shortness of breath sob since Friday. Hx mitral valve prolapse. Denies hx copd, asthma.states that she has a history of MVP however has not been evaluated for a longtime. Patient denies any fevers or chills per patient denies any productivecoughing TECHNIQUE: Single radiographic view of the chest acquired. COMPARISON: None FINDINGS: LUNGS/PLEURA: No focal consolidation or pneumothorax. Nopleural effusion. HEART/MEDIASTINUM: Heart size is normal. Normal mediastinal and hilar contours. HARDWARE/LINES/TUBES: None. BONES: No acute findings. OTHER: No other significant finding. IMPRESSION: No acute cardiopulmonary abnormality. THIS IS AN ELECTRONICALLY VERIFIED FINAL REPORT 05/18/2022 10:24 PM - Electronically signed by Jamal HERNANDEZ T: Report ID: [id number] Reading Location: [id number] Latisha LACKEY IMG XR PROCEDURES Final Result * (ABNORMAL) Blood gas, arterial (05/18/2022 9:55 PM SOUND RECORDING TECHNICIAN) Pathologist [facility] pH, Art 7.37 7.35 - 7.45 [facility] PCO2, Arterial 45 35 - 45 mmHg [facility] PO2, Arterial 89 83 - 108 mmHg [facility] HCO3 Art (Calculated) 26 20 - 30 mmol/L [facility] BE, art 0 mmol/L [facility] Comment: Interpretive Data No Reference Range Established Current Interpretive Data was last revised on 2017. O2 Sat Art (Measured) 98(H) 90 - 95 % [facility] Blood 05/18/2022 9:55 PM SOUND RECORDING TECHNICIAN 05/18/2022 9:58 PM SOUND RECORDING TECHNICIAN Latisha LACKEY LAB BLOOD ORDERABLES Final Resu lt Performing Organization Address [facility] Co de Phone Number [facility] [address] Department [place] [address] * ECG 12 lead (05/18/2022 9:30 PM SOUND RECORDING TECHNICIAN) Pathologist [facility] Ventricular Rate EKG/Min 72 BPM [facility] Atrial Rate 72 BPM [facility] [place]-Interval (MSEC) 166 ms [facility] QRS-Interval (MSEC) 78 ms [facility] QT-Interval (MSEC) 412 ms [facility] QTc 451 ms [facility] P [place] 79 degrees [facility] R [place] 72 degrees [facility] T [place] 72 degrees [facility] Diagnosis Sinus rhythm with frequent Premature ventricular complexes Septal infarct , age undetermined Abnormal ECG When compared with ECG of 18-JAN-2019 06:58, No significant change was found [facility] 05/18/2022 9:30 PM SOUND RECORDING TECHNICIAN 05/19/2022 7:48 PM SOUND RECORDING TECHNICIAN Latisha LACKEY ECG ORDERABLES Final Result Performing Organization Address [facility] de Phone Number [facility] * Magnesium (05/18/2022 9:10 PM SOUND RECORDING TECHNICIAN) Magnesium 2.1 1.4 - 2.5 mg/dL [facility] Blood 05/18/2022 9:10 PM SOUND RECORDING TECHNICIAN 05/18/2022 9:13 PM SOUND RECORDING TECHNICIAN us Wilmar Luna MD LAB BLOOD ORDERABLE S Final Result [facility] [address] Department [place] [address] * eGFR (05/18/2022 9:10 PM SOUND RECORDING TECHNICIAN) Pathologist [facility] eGFR 100 mL/min/1. 73 m2 [facility] Comment: Interpretive Data Reference Interval Normal ?>/= [...] interpretive data was last reviewed 2021. Blood 05/18/2022 9:10 PM SOUND RECORDING TECHNICIAN 05/18/2022 9:13 PM SOUND RECORDING TECHNICIAN us Latisha LACKEY LAB BLOOD ORDERABLES Final Resu lt [facility] [address] Department [place] [address] * (ABNORMAL) Differential, auto (05/18/2022 9:10 PM SOUND RECORDING TECHNICIAN) Neutrophil abs 7.4(H) 1.7 - 6.5 K/cumm [facility] Imm gran abs 0.0 0.0 - 0.1 K/cumm [facility] Lymphocyte abs 2.9 0.8 - 3.3 K/cumm [facility] Monocyte abs 1.1(H) 0.2 - 0.8 K/cumm [facility] Eosinophil abs 0.5 0.0 - 0.5 K/cumm [facility] Basophil abs 0.1 0.0 - 0.1 K/cumm [facility] Neutrophil pct 61.7 % [facility] Comment: Interpretive Data Percent cell count reference ranges are not reported, since discordance with absolute values may lead to misinterpretation of CBC data. Current Interpretive Data was last revised on 2017. Imm gran pct 0.3 % [facility] Comment: Interpretive Data Percent cell count reference ranges are not reported, since discordance with absolute values may lead to misinterpretation of CBC data. Current Interpretive Data was last revised on 2017. Lymphocyte pct 23.8 % [facility] Comment: Interpretive Data Percent cell count reference ranges are not reported, since discordance with absolute values may lead to misinterpretation of CBC data. Current Interpretive Data was last revised on 2017. Monocyte pct 9.5 % [facility] Comment: Interpretive Data Percent cell count reference ranges are not reported, since discordance with absolute values may lead to misinterpretation of CBC data. Current Interpretive Data was last revised on 2017. Eosinophil pct 3.9 % [facility] Comment: Interpretive Data Percent cell count reference ranges are not reported, since discordance with absolute values may lead to misinterpretation of CBC data. Current Interpretive Data was last revised on 2017. Basophil pct 0.8 % [facility] Comment: Interpretive Data Percent cell count reference ranges are not reported, since discordance with absolute values may lead to misinterpretation of CBC data. Current Interpretive Data was last revised on 2017. Blood 05/18/2022 9:10 PM SOUND RECORDING TECHNICIAN 05/18/2022 9:13 PM SOUND RECORDING TECHNICIAN Latishaadama Valdovinos DC LAB BLOOD ORDERABLES Final Resu lt Performing Organization Address [facility] Co de Phone Number [address] [address] * Sepsis Lactate w/ Reflex (05/18/2022 9:10 PM SOUND RECORDING TECHNICIAN) Pathologist [facility] Sepsis Lactate 1.7 0.7 - 2.0 mmol/L [facility] Blood 05/18/2022 9:10 PM SOUND RECORDING TECHNICIAN 05/18/2022 9:13 PM SOUND RECORDING TECHNICIAN Latisha Bonifacoi DC LAB BLOOD ORDERABLES Final Resu lt Performing Organization Address [facility] de Phone Number [address] [address] * (ABNORMAL) D-dimer, quantitative (05/18/2022 9:10 PM SOUND RECORDING TECHNICIAN) Pathologist [facility] D-Dimer 820(H) <=499 ng/mL FEU [facility] Comment: Interpretive data FDA approved the D-dimer, in conjunction with a low or moderate pretest probability score, to exclude venous thromboembolic events (VTE) (PE and DVT) in outpatients when the D-dimer result is < 500 ng/ml FEU. ?? Evidence supports using an age-adjusted D-dimer cut-off for outpatients older than 50 (age x 10) to improve specificity without sacrificing sensitivity. Example: age 68, VTE cut-off 680 ng/ml FEU. References; Schnicole HT et al. Brit Med J. 2013;346:f2492. Hiral JENKINS et al. Annals Int Med. 2015;163:701-11. Current interpretive data was last revised on 2019. Blood 05/18/2022 9:10 PM SOUND RECORDING TECHNICIAN 05/18/2022 9:13 PM SOUND RECORDING TECHNICIAN Latisha LACKEY LAB BLOOD ORDERABLES Final Resu lt Performing Organization Address [facility] Co de Phone Number [facility] [address] [facility] [place] [address] * Influenza A/B, RSV, and COVID-19 PCR Nasopharyngeal (05/18/2022 9:10 PM SOUND RECORDING TECHNICIAN) [facility] COVID-19 RNA Negative Negative [facility] Influenza A RNA Negative Negative [facility] Influenza B RNA Negative Negative [facility] RSV RNA Negative Negative [facility] Comment: Interpretive data: This test is performed using the swabr Xpert Xpress CoV-2/Flu/RSV plus assay. This is a multiplex, real-time reverse transcriptase PCR assay intended for the qualitative detection of nucleic acid from SARS-CoV-2, influenza A, influenza B, and respiratory syncytial virus. This assay has been reviewed by the FDA for Emergency Use Authorization (EUA). The performance characteristics have been verified by the performing laboratory. Results must be considered in the clinical context, and a negative result does not rule out infection. Interpretive Data last revised 2021. Nasopharyngeal 05/18/2022 9: 10 PM SOUND RECORDING TECHNICIAN 05/18/2022 9:14 PM SOUND RECORDING TECHNICIAN Narrative [facility] - 05/18/2022 9:55 PM SOUND RECORDING TECHNICIAN Is the Patient experiencing symptoms consistent with COVID?->Yes Date of Symptom Onset->05/17/22 Reason for testing?->Symptomatic Latisha LACKEY LAB MICROBIOLOGY - GENERAL ORDE RABLES Final Result Performing Organization Address [facility]/ZIP Co de Phone Number [facility] [address] [place] [address] [place] [address] * Pro B-type natriuretic peptide (05/18/2022 9:10 PM SOUND RECORDING TECHNICIAN) [facility] NT-proBNP 186 <=300 pg/mL [facility] Comment: Interpretive Comments: A. Dyspnea in Acute Care Setting All Ages: ?< 300 pg/ml, acute heart failure unlikely. < 50 yrs: ?300 - 450 pg/ml, further investigation warranted. ? > 450 pg/ml, acute heart failure likely. 50 - 74 yrs: ? 300 - 900 pg/ml, further investigation warranted. ? > 900 pg/ml, acute heart failure likely . > or = 75 yrs: ? 450 - 1800 pg/ml, further investigation warranted. ? > 1800 pg/ml, acute heart failure likely. B. Non-acute Setting < 75 yrs ? < 125 pg/ml, rules out heart failure. ? > or = 125 pg/ml, further investigation warranted. > or = 75 yrs ?< 450 pg/ml, rules out heart failure. ? > or = 450 pg/ml, further investigation warranted. - Knowledge of each individual patient's NT-proBNP range may be more useful than using similar cut-points for every patient. Please note that marked elevations in NT-proBNP levels may be observed in state other than Left Ventricular Congestive Failure, including: acute coronary syndromes, right heart strain/failure (including pulmonary embolism and cor pulmonale), critical illness, renal failure, as well as advanced age. - References: 1. Scot BALLARD et.al. Eur Heart J. 2006:27:330-337. 2. Analy RW, Melissa العلي. J. AM Cherie Cardiol: Cardiovasc Imag. 2009;2: 216- 225. Interpretive Data Last Revised Date: 2017. Blood 05/18/2022 9:10 PM SOUND RECORDING TECHNICIAN 05/18/2022 9:13 PM SOUND RECORDING TECHNICIAN us Latisha LACKEY LAB BLOOD ORDERABLES Final Resu lt [facility] [address] [facility] [place] [address] * (ABNORMAL) Troponin T high-sensitivity series (baseline, 2hr, 4hr, 6hr) (05/18/2022 9:10 PM SOUND RECORDING TECHNICIAN) Pathologist [facility] Trop T hs 32(H) <=14 ng/L [facility] Comment: Interpretive Data For further hscTnT resources including the diagnostic algorithm and an aid in interpretation, copy and paste this link: [email or web address] Current Interpretive Data last revised 2020. Blood 05/18/2022 9:10 PM SOUND RECORDING TECHNICIAN 05/18/2022 9:13 PM SOUND RECORDING TECHNICIAN us Latisha LACKEY LAB BLOOD ORDERABLES Final Resu lt [facility] [address] [place] [address] * Comprehensive metabolic panel (05/18/2022 9:10 PM SOUND RECORDING TECHNICIAN) [facility] Sodium 141 135 - 145 mmol/L [facility] Potassium, pl 3.8 3.3 - 4.9 mmol/L [facility] Chloride 103 97 - 110 mmol/L [facility] CO2 26 22 - 32 mmol/L [facility] Anion gap 12 2 - 15 mmol/L [facility] BUN 11 8 - 25 mg/dL [facility] Creatinine 0.70 0.60 - 1.10 mg/dL [facility] Glucose 132 70 - 199 mg/dL [facility] Comment: Interpretive Data Fasting glucose >/= [...] interpretive data was last revised 2022. Calcium 10.2 8.5 - 10.3 mg/dL [facility] Bilirubin, total <0.2 0.1 - 1.2 mg/dL [facility] Protein, pl 7.7 6.5 - 8.5 g/dL [facility] Albumin 4.8 3.5 - 5.0 g/dL [facility] Alk phos 67 40 - 130 Units/L [facility] ALT 17 7 - 45 Units/L [facility] AST 17 10 - 45 Units/L [facility] Blood 05/18/2022 9:10 PM SOUND RECORDING TECHNICIAN 05/18/2022 9:13 PM SOUND RECORDING TECHNICIAN Latisha LACKEY LAB BLOOD ORDERABLES Final Resu lt [facility] [address] Department [place] [address] * (ABNORMAL) CBC with auto differential (05/18/2022 9:10 PM SOUND RECORDING TECHNICIAN) WBC 12.0(H) 3.8 - 9.9 K/cumm [facility] Hgb 14.1 11.9 - 15.5 g/dL [facility] Hct 41.9 35.6 - 45.5 % [facility] Plt 263 150 - 400 K/cumm [facility] MPV 9.7 9.1 - 12.3 fL [facility] RBC 4.60 3.90 - 5.20 M/cumm [facility] MCV 91.1 81.3 - 96.4 fL [facility] MCH 30.7 27.1 - 33.3 pg [facility] MCHC 33.7 32.3 - 35.7 g/dL [facility] RDW CV 12.5 11.1 - 14.9 % [facility] RDW SD 41.3 35.7 - 48.1 fL [facility] NRBC abs 0.00 0.00 - 0.01 K/cumm [facility] Blood 05/18/2022 9:10 PM SOUND RECORDING TECHNICIAN 05/18/2022 9:13 PM SOUND RECORDING TECHNICIAN Latisha LACKEY LAB BLOOD ORDERABLES Final Resu lt [facility] [address] Department [place] [address] documented in this encounter Visit Diagnoses Diagnosis Shortness of breath- Primary Shortness of breath Acute bronchitis, unspecified organism Pulmonary emphysema, unspecified emphysema type (HCC) Mitral valve prolapse Mitral valve disorders Acute respiratory failure with hypoxia (CMS/HCC) (HCC) Bronchitis with acute wheezing Mucus plugging of bronchi documented in this encounter Admitting Diagnoses Diagnosis Shortness of breath documented in this encounter Administered Medications Inactive Administered Medications - up to 3 most recent administrations Medication Order MAR Action Action Date Dose Rate Site acetaminophen (TYLENOL) tablet 650 mg 650 mg, oral, Every 4 hours PRN, 1st line for pain, fever, fever greater than 38.3 C, Starting on Fri05/19/22 at 0448, Indications: Fever, PainIndications:Fever,Pain Given 05/19/2022 4:06 PM SOUND RECORDING TECHNICIAN 650 mg acetaminophen (TYLENOL) tablet 975 mg 975 mg (rounded from 1,000 mg), oral, Once, On 05/18/22 at 2316, For 1 dose Given 05/18/2022 11:27 PM SOUND RECORDING TECHNICIAN 975 mg albuterol 2.5 mg /3 mL (0.083 %) nebulizer solution 10 mg 10 mg, nebulization, Once (service correspondent), On 05/18/22 at 2319, For 1 dose Given 05/19/2022 12:04 AM SOUND RECORDING TECHNICIAN 10 mg albuterol HFA (PROVENTIL HFA,VENTOLIN HFA,PROAIR HFA) 90 mcg/actuation inhaler 2 puff 2 puff, inhalation, Every 6 hours PRN (service correspondent), wheezing, Starting on Fri05/22/22 at 0617 azithromycin (ZITHROMAX) 500 mg/250 mL in sodium chloride 0.9% (premix) 500 mg 500 mg, intravenous, at 250 mL/hr, Administer over 60 Minutes, Every 24 hours scheduled, First dose on Fri05/19/22 at 0930, For 3 days, Indications: Pneumonia, Community AcquiredIndications:Pneumoni a, Community Acquired New Bag 05/20/2022 8:17 AM SOUND RECORDING TECHNICIAN 500 mg 250 mL/hr New Bag 05/19/2022 10:33 AM SOUND RECORDING TECHNICIAN 500 mg 250 mL/hr budesonide-formoteroL (SYMBICORT) 160-4.5 mcg/actuation inhaler 2 puff 2 puff, inhalation, 2 times daily (service correspondent), First dose on Fri05/22/22 at 0800, Rinse mouth with water after use. Do not swallow., I /authorizing provider attest that the patient meets the approved [facility] Use Criteria: Yes Given 05/22/2022 8:19 AM SOUND RECORDING TECHNICIAN 2 puffs Carrier Fluids for Secondary Infusion - 0.9% Sodium Chloride 30 mL, intravenous, As needed, For priming tubing and/or flushing, Starting on Fri05/19/22 at 0447, 0-250 ml/hr to flush line after IV infusions when no maintenance IV ordered. Infuse 30mL at the same rate as the secondary infusion. Run as primary IV, not intended for KVO. cefdinir (OMNICEF) capsule 300 mg 300 mg, oral, 2 times daily, First dose on Fri05/23/22 at 0900, For 5 days, Indications: Pneumonia, Community AcquiredIndications:Pneumonia, Community Acquired cefTRIAXone (ROCEPHIN) 2,000 mg/20 mL in sterile water (premix) 2,000 mg 2,000 mg, intravenous, at 1,200 mL/hr, Administer over 1 Minutes, Every 24 hours scheduled, First dose on Fri05/19/22 at 0930, For 4 doses, Indications: Pneumonia, Community AcquiredIndications:Pneumonia, Community Acquired Given 05/22/2022 8:04 AM SOUND RECORDING TECHNICIAN 2,000 mg 1200 mL/hr Given 05/20/2022 8:17 AM SOUND RECORDING TECHNICIAN 2,000 mg 1200 mL/hr Given 05/19/2022 10:33 AM SOUND RECORDING TECHNICIAN 2,000 mg 1200 mL/hr enoxaparin (LOVENOX) syringe 30 mg 30 mg, subcutaneous, Daily (for enoxaparin), First dose on Fri05/19/22 at 2100, Indications: Deep Vein Thrombosis PreventionIndications:Deep Vein Thrombosis Prevention Given 05/21/2022 8:23 PM SOUND RECORDING TECHNICIAN 30 mg Left Lower Abdomen Given 05/20/2022 8:54 PM SOUND RECORDING TECHNICIAN 30 mg Le ft Lower Abdomen Given 05/19/2022 8:49 PM SOUND RECORDING TECHNICIAN 30 mg Le ft Lower Abdomen FLUoxetine (PROzac) capsule 60 mg 60 mg, oral, Daily, First dose on Fri05/19/22 at 0900 Given 05/22/2022 8:03 AM SOUND RECORDING TECHNICIAN 60 mg Given 05/20/2022 8:11 AM SOUND RECORDING TECHNICIAN 60 mg Given 05/19/2022 9:57 AM SOUND RECORDING TECHNICIAN 60 mg guaiFENesin ER (MUCINEX) extended release tablet 600 mg 600 mg, oral, 2 times daily, First dose on 05/19/22 at 1145, Do not crush, chew, cut, dissolve, open or otherwise manipulate tablet/capsule. Given 05/22/2022 8:02 AM SOUND RECORDING TECHNICIAN 600 mg Given 05/21/2022 8:23 PM SOUND RECORDING TECHNICIAN 600 mg Given 05/20/2022 8:54 PM SOUND RECORDING TECHNICIAN 600 mg ioversoL (OPTIRAY 350) syringe 100 mL 100 mL, intravenous, Once in imaging, contrast, Starting on 05/18/22 at 2211, For 1 dose Contrast Given 05/18/2022 10:11 PM SOUND RECORDING TECHNICIAN 80 mL Left Forearm ipratropium-albuteroL (DUO-NEB) 0.5-2.5 mg/3 mL nebulizer solution 3 mL 3 mL, nebulization, Once, On 05/18/22 at 2200, For 1 dose, Indications: Chronic Obstructive Pulmonary Disease with BronchospasmsIndications:Chron ic Obstructive Pulmonary Disease with Bronchospasms Given 05/18/2022 10:17 PM SOUND RECORDING TECHNICIAN 3 mL ipratropium-albuteroL (DUO-NEB) 0.5-2.5 mg/3 mL nebulizer solution 3 mL 3 mL, nebulization, Every 6 hours while awake (service correspondent), First dose on 05/19/22 at 0900, Indications: Chronic Obstructive Pulmonary Disease with BronchospasmsIndications:Chron ic Obstructive Pulmonary Disease with Bronchospasms Given 05/20/2022 7:33 AM SOUND RECORDING TECHNICIAN 3 mL Given 05/19/2022 8:01 PM SOUND RECORDING TECHNICIAN 3 mL Given 05/19/2022 3:03 PM SOUND RECORDING TECHNICIAN 3 mL ipratropium-albuteroL (DUO-NEB) 0.5-2.5 mg/3 mL nebulizer solution 3 mL 3 mL, nebulization, 2 times daily (service correspondent), First dose (after last modification) on 05/20/22 at 2000, Indications: Chronic Obstructive Pulmonary Disease with BronchospasmsIndications:Chronic Obstructive Pulmonary Disease with Bronchospasms Given 05/22/2022 8:18 AM SOUND RECORDING TECHNICIAN 3 mL Given 05/21/2022 10:04 PM SOUND RECORDING TECHNICIAN 3 mL Given 05/20/2022 7:44 PM SOUND RECORDING TECHNICIAN 3 mL methylPREDNISolone sodium succinate (SOLU-medrol) preservative free injection 125 mg 125 mg, intravenous, Administer over 3 Minutes, Once, On 05/18/22 at 2109, For 1 dose Given 05/18/2022 9:30 PM SOUND RECORDING TECHNICIAN 125 mg methylPREDNISolone sodium succinate (SOLU-medrol) preservative free injection 40 mg 40 mg, intravenous, Administer over 3 Minutes, Every 24 hours scheduled, First dose on 05/19/22 at 1330, Administer 125 mg or less over 3 minutes Given 05/20/2022 8:11 AM SOUND RECORDING TECHNICIAN 40 mg Given 05/19/2022 4:01 PM SOUND RECORDING TECHNICIAN 40 mg metoprolol XL (TOPROL-XL) extended release tablet 50 mg 50 mg, oral, Daily, First dose on 05/19/22 at 0900, Tablets that are scored may be split, but do not crush, chew, dissolve, open or otherwise manipulate tablet/capsule. Given 05/22/2022 8:02 AM SOUND RECORDING TECHNICIAN 50 m g Given 05/20/2022 8:11 AM SOUND RECORDING TECHNICIAN 50 mg Given 05/19/2022 9:57 AM SOUND RECORDING TECHNICIAN 50 mg ondansetron (ZOFRAN) injection 4 mg 4 mg, intravenous, Administer over 2 Minutes, Every 6 hours PRN, nausea, vomiting, if not tolerating PO, Starting on 05/19/22 at 0447, Indications: Nausea and VomitingIndications:Nausea and Vomiting ondansetron ODT (ZOFRAN-ODT) disintegrating tablet 4 mg 4 mg, oral, Every 6 hours PRN, nausea, vomiting, Starting on 05/19/22 at 0447, Indications: Nausea and VomitingIndications:Nausea and Vomiting pantoprazole (PROTONIX) 4 mg/mL injection 40 mg 40 mg, intravenous, Administer over 2 Minutes, Daily, First dose on 05/19/22 at 0900, For IV Push administration for adults- 40 mg vial: add 10 mL of sodium chloride 0.9% to achieve a final concentration of 4 mg/mL, Indications: Stress Ulcer ProphylaxisIndications:Stress Ulcer Prophylaxis Given 05/20/2022 8:11 AM SOUND RECORDING TECHNICIAN 40 mg Given 05/19/2022 9:57 AM SOUND RECORDING TECHNICIAN [address] (PROTONIX) extended release tablet 40 mg 40 mg, oral, Daily, First dose on Fri05/21/22 at 0900, Do not crush, chew, cut, dissolve, open or otherwise manipulate tablet/capsule., Indications: Stress Ulcer ProphylaxisIndications:Stress Ulcer Prophylaxis Given 05/22/2022 8:03 AM SOUND RECORDING TECHNICIAN 40 mg polyethylene glycol (MIRALAX) packet 17 g 17 g, oral, Daily PRN, constipation, Starting on Fri05/19/22 at 0447, Indications: constipationIndications:constipation predniSONE (DELTASONE) tablet 10 mg 10 mg, oral, Daily, First dose on Fri05/28/22 at 0900, For 1 day predniSONE (DELTASONE) tablet 10 mg 10 mg, oral, Daily, First dose on Fri05/29/22 at 0900, For 1 day predniSONE (DELTASONE) tablet 20 mg 20 mg, oral, Daily, First dose on Fri05/26/22 at 0900, For 2 days predniSONE (DELTASONE) tablet 30 mg 30 mg, oral, Daily, First dose on Fri05/24/22 at 0900, For 2 days predniSONE (DELTASONE) tablet 40 mg 40 mg, oral, Daily, First dose on Fri05/22/22 at 0900, For 2 days Given 05/22/2022 8:03 AM SOUND RECORDING TECHNICIAN 40 mg sodium chloride 0.9% flush 0.5-20 mL 0.5-20 mL, intra-catheter, Every 8 hours scheduled, First dose on Fri05/19/22 at 0600, Flush volume based on line type and size. Given 05/22/2022 5:58 AM SOUND RECORDING TECHNICIAN 10 mL Given 05/21/2022 8:24 PM SOUND RECORDING TECHNICIAN 10 mL Given 05/20/2022 8:54 PM SOUND RECORDING TECHNICIAN 10 mL sodium chloride 0.9% flush 0.5-20 mL 0.5-20 mL, intra-catheter, As needed, line care, Starting on Fri05/19/22 at 0447, Flush volume based on line type and size. Flush before and after each use. tiotropium bromide (SPIRIVA RESPIMAT) 2.5 mcg/actuation inhaler 2 puff 2 puff, inhalation, Daily (service correspondent), First dose on Fri05/22/22 at 0900 documented in this encounter Active and Recently Administered Medications Times are shown in SOUND RECORDING TECHNICIAN. Scheduled Medication Order 05/20/2022 05/21/2022 05/22/2022 azithromycin (ZITHROMAX) 500 mg/250 mL in sodium chloride 0.9% (premix) 500 mg (CANCELED) 500 mg, intravenous, at 250 mL/hr, Administer over 60 Minutes, Every 24 hours scheduled, First dose on Fri05/19/22 at 0930, For 3 days, Indications: Pneumonia, Community Acquired 0817 (New Bag - Provider: Christy Cochran, LACEY) azithromycin (ZITHROMAX) tablet 500 mg 500 mg, oral, Once, On Fri05/21/22 at 0900, For 1 dose, Indications: Pneumonia, Community Acquired 0856 (Incomplete - Provider: Christy Cochran, LACEY) budesonide-formoteroL (SYMBICORT) 160-4.5 mcg/actuation inhaler 2 puff 2 puff, inhalation, 2 times daily (service correspondent), First dose on Fri05/22/22 at 0800, Rinse mouth with water after use. Do not swallow., I /authorizing provider attest that the patient meets the approved [facility] Use Criteria: Yes 08 (Given - Provider: Risa Carrillo, BUSHER HELPER) cefdinir (OMNICEF) capsule 300 mg 300 mg, oral, 2 times daily, First dose on Fri05/23/22 at 0900, For 5 days, Indications: Pneumonia, Community Acquired cefTRIAXone (ROCEPHIN) 2,000 mg/20 mL in sterile water (premix) 2,000 mg 2,000 mg, intravenous, at 1,200 mL/hr, Administer over 1 Minutes, Every 24 hours scheduled, First dose on Fri05/19/22 at 0930, For 4 doses, Indications: Pneumonia, Community Acquired 0817 (Given - Provider: Christy Cochran RN) 0857 (Incomplete - Provider: Christy Cochran, LACEY) 0804 (Given - Provider: Christy Cochran, LACEY) enoxaparin (LOVENOX) syringe 30 mg 30 mg, subcutaneous, Daily (for enoxaparin), First dose on Fri05/19/22 at 2100, Indications: Deep Vein Thrombosis Prevention 2053 (Given - Provider: Deidre Preston, LACEY) 2022 (Given - Provider: Mino Romero RN) FLUoxetine (PROzac) capsule 60 mg 60 mg, oral, Daily, First dose on 05/19/22 at 0900 0811 (Given - Provider: Christy Cochran RN) 0856 (Incomplete - Provider: Christy Cochran RN) 08 (Given - Provider: Christy Cochran RN) guaiFENesin ER (MUCINEX) extended release tablet 600 mg 600 mg, oral, 2 times daily, First dose on 05/19/22 at 1145, Do not crush, chew, cut, dissolve, open or otherwise manipulate tablet/capsule. 0812 (Given - Provider: Christy Cochran RN)2053 (Given - Provider: Deidre Preston RN) 0856 (Incomplete - Provider: Christy Cochran RN)2022 (Given - Provider: Mino Romero RN) 08 (Given - Provider: Christy Cochran RN) ipratropium-albuteroL (DUO-NEB) 0.5-2.5 mg/3 mL nebulizer solution 3 mL (CANCELED) 3 mL, nebulization, Every 6 hours while awake (service correspondent), First dose on 05/19/22 at 0900, Indications: Chronic Obstructive Pulmonary Disease with Bronchospasms 0733 (Given - Provider: Risa Carrillo, BUSHER HELPER) ipratropium-albuteroL (DUO-NEB) 0.5-2.5 mg/3 mL nebulizer solution 3 mL (CANCELED) 3 mL, nebulization, 2 times daily (service correspondent), First dose (after last modification) on Fri05/20/22 at 2000, Indications: Chronic Obstructive Pulmonary Disease with Bronchospasms 194 (Given - Provider: Hermila Katz, SEED CLEANING MACHINE OPERATOR) 0755 (Not Given - Provider: Debi Javeir, SEED CLEANING MACHINE OPERATOR - Reason: Hold for Procedure - Comment: HOLD FOR PFT)1350 (Override Pull - Provider: Elsy Larsen, SEED CLEANING MACHINE OPERATOR - Comment: with PFT)2204 (Given - Provider: Pranay Foley, SEED CLEANING MACHINE OPERATOR) 0818 (Given - Provider: Risa Carrillo, BUSHER HELPER - Comment: was dc as giving) methylPREDNISolone sodium succinate (SOLU-medrol) preservative free injection 40 mg (CANCELED) 40 mg, intravenous, Administer over 3 Minutes, Every 24 hours scheduled, First dose on 05/19/22 at 1330, Administer 125 mg or less over 3 minutes 0811 (Given - Provider: Christy Cochran RN) 0856 (Incomplete - Provider: Christy Cochran RN) metoprolol XL (TOPROL-XL) extended release tablet 50 mg 50 mg, oral, Daily, First dose on 05/19/22 at 0900, Tablets that are scored may be split, but do not crush, chew, dissolve, open or otherwise manipulate tablet/capsule. 0811 (Given - Provider: Christy Cochran RN) 0856 (Incomplete - Provider: Christy Cochran RN) 0802 (Given - Provider: Christy Cochran RN) pantoprazole (PROTONIX) 4 mg/mL injection 40 mg (CANCELED) 40 mg, intravenous, Administer over 2 Minutes, Daily, First dose on 05/19/22 at 0900, For IV Push administration for adults- 40 mg vial: add 10 mL of sodium chloride 0.9% to achieve a final concentration of 4 mg/mL, Indications: Stress Ulcer Prophylaxis 0811 (Given - Provider: Christy Cochran RN) pantoprazole DR (PROTONIX) extended release tablet 40 mg 40 mg, oral, Daily, First dose on Fri05/21/22 at 0900, Do not crush, chew, cut, dissolve, open or otherwise manipulate tablet/capsule., Indications: Stress Ulcer Prophylaxis 0856 (Incomplete - Provider: Christy Cochran RN) 0803 (Given - Provider: Christy Cochran RN) predniSONE (DELTASONE) tablet 10 mg(Linked Group 1) 10 mg, oral, Daily, First dose on Fri05/28/22 at 0900, For 1 day predniSONE (DELTASONE) tablet 10 mg(Linked Group 1) 10 mg, oral, Daily, First dose on Fri05/29/22 at 0900, For 1 day predniSONE (DELTASONE) tablet 20 mg(Linked Group 1) 20 mg, oral, Daily, First dose on Fri05/26/22 at 0900, For 2 days predniSONE (DELTASONE) tablet 30 mg(Linked Group 1) 30 mg, oral, Daily, First dose on Fri05/24/22 at 0900, For 2 days predniSONE (DELTASONE) tablet 40 mg(Linked Group 1) 40 mg, oral, Daily, First dose on Fri05/22/22 at 0900, For 2 days 0803 (Given - Provider: Christy Cochran RN) sodium chloride 0.9% flush 0.5-20 mL 0.5-20 mL, intra-catheter, Every 8 hours scheduled, First dose on Fri05/19/22 at 0600, Flush volume based on line type and size. 0503 (Given - Provider: Leighann Mcconnell RN)1346 (Not Given - Provider: Christy Cochran, LACEY - Reason: IV Infusing)2053 (Given - Provider: Deidre Preston RN) 0543 (Not Given - Provider: Deidre Preston RN - Reason: Other)1421 (Not Given - Provider: Christy Cochran RN - Reason: Patient not available)2023 (Given - Provider: Mino Romero RN) 0558 (Given - Provider: Mino Romero RN)1305 (Not Given - Provider: Christy Cochran RN - Reason: Loss of IV access) tiotropium bromide (SPIRIVA RESPIMAT) 2.5 mcg/actuation inhaler 2 puff 2 puff, inhalation, Daily (service correspondent), First dose on Fri05/22/22 at 0900 0819 (Not Given - Provider: Risa Carrillo CRTT - Reason: Other - Comment: pt had libia) PRN Medication Order 05/20/2022 05/21/2022 05/22/2022 acetaminophen (TYLENOL) tablet 650 mg 650 mg, oral, Every 4 hours PRN, 1st line for pain, fever, fever greater than 38.3 C, Starting on Fri05/19/22 at 0448, Indications: Fever, Pain albuterol HFA (PROVENTIL HFA,VENTOLIN HFA,PROAIR HFA) 90 mcg/actuation inhaler 2 puff 2 puff, inhalation, Every 6 hours PRN (service correspondent), wheezing, Starting on Fri05/22/22 at 0617 baclofen (LIORESAL) tablet 10 mg 10 mg, oral, 3 times daily PRN, muscle spasms, Starting on Fri05/19/22 at 0821 Carrier Fluids for Secondary Infusion - 0.9% Sodium Chloride 30 mL, intravenous, As needed, For priming tubing and/or flushing, Starting on Fri05/19/22 at 0447, 0-250 ml/hr to flush line after IV infusions when no maintenance IV ordered. Infuse 30mL at the same rate as the secondary infusion. Run as primary IV, not intended for KVO. ondansetron (ZOFRAN) injection 4 mg(Linked Group 2) 4 mg, intravenous, Administer over 2 Minutes, Every 6 hours PRN, nausea, vomiting, if not tolerating PO, Starting on Fri05/19/22 at 0447, Indications: Nausea and Vomiting ondansetron ODT (ZOFRAN-ODT) disintegrating tablet 4 mg(Linked Group 2) 4 mg, oral, Every 6 hours PRN, nausea, vomiting, Starting on Fri05/19/22 at 0447, Indications: Nausea and Vomiting polyethylene glycol (MIRALAX) packet 17 g 17 g, oral, Daily PRN, constipation, Starting on Fri05/19/22 at 0447, Indications: constipation sodium chloride 0.9% flush 0.5-20 mL 0.5-20 mL, intra-catheter, As needed, line care, Starting on Fri05/19/22 at 0447, Flush volume based on line type and size. Flush before and after each use. Linked Groups Order Group 1: predniSONE (DELTASONE) tablet 40 mgJump to med 40 mg, oral, Daily, First dose on Fri05/22/22 at 0900, For 2 days Followed by predniSONE (DELTASONE) tablet 30 mgJump to med 30 mg, oral, Daily, First dose on Fri05/24/22 at 0900, For 2 days Followed by predniSONE (DELTASONE) tablet 20 mgJump to med 20 mg, oral, Daily, First dose on Fri05/26/22 at 0900, For 2 days Followed by predniSONE (DELTASONE) tablet 10 mgJump to med 10 mg, oral, Daily, First dose on Fri05/28/22 at 0900, For 1 day Followed by predniSONE (DELTASONE) tablet 10 mgJump to med 10 mg, oral, Daily, First dose on Fri05/29/22 at 0900, For 1 day Group 2: ondansetron ODT (ZOFRAN-ODT) disintegrating tablet 4 mgJump to med 4 mg, oral, Every 6 hours PRN, nausea, vomiting, Starting on 05/19/22 at 0447, Indications: Nausea and Vomiting Or ondansetron (ZOFRAN) injection 4 mgJump to med 4 mg, intravenous, Administer over 2 Minutes, Every 6 hours PRN, nausea, vomiting, if not tolerating PO, Starting on Fri05/19/22 at 0447, Indications: Nausea and Vomiting documented in this encounter Orders Medications Ordered That Luke ht Not Have Been Administered Count Last Ordered Date First Ordered Date albuterol HFA (PROVENTIL HFA ,VENTOLIN HFA,PROAIR HFA) 90 mcg/actuation inhaler 2 puff 1 05/22/2022 cefdinir (OMNICEF) capsule 300 mg 1 023 predniSONE (DELTASONE) tablet 10 mg 2 05/22 predniSONE (DELTASONE) tablet 20 mg 1 05/22 predniSONE (DELTASONE) tablet 30 mg 1 05/22 tiotropium bromide (SPIRIVA RESPIMAT) 2.5 mcg/actuation inhaler 2 puff 1 05/22/2022 azithromycin (ZITHROMAX) tablet 500 mg 1 baclofen (LIORESAL) tablet 10 mg 05/19/19 Carrier Fluids for Secondary Infusion - 0.9% Sodium Chloride 1 05/19/2022 ondansetron (ZOFRAN) injection 4 mg 1 05/19 ondansetron ODT (ZOFRAN-ODT) disintegrating tablet 4 mg 1 05/19/2022 polyethylene glycol (MIRALAX) packet 17 g 1 05/19/2022 sodium chloride 0.9% flush 0.5-20 mL 1 05/01 Imaging Orders Without Results Count Last Order ed Date First Ordered Date PEP THERAPY/AIRWAY CLEARANCE 3 05/19/2022 Diet Count Last Ordered Date First Orde red Date ADULT DISCHARGE DIET 1 05/22/2022 Nursing Count Last Ordered Date First Orde red Date DISCHARGE ACTIVITY 1 05/22/2022 DISCHARGE CALL PROVIDER 5 05/22/2022 FOLLOW UP WITH ESTABLISHED PROVIDER 2 05/22 TELEMETRY MONITORING 1 05/19/2022 WEIGH PATIENT 1 05/19/2022 Admission Count Last Ordered Date First Orde red Date ADMIT TO INPATIENT 1 05/19/2022 Transfer Count Last Ordered Date First Orde red Date ED TO FLOOR BED REQUEST 1 05/19/2022 Discharge Count Last Ordered Date First Orde red Date DISCHARGE PATIENT 1 05/22/2022 documented in this encounter Additional Health Concerns Infection Onset Date Last Indicated Resolved Time COVID: Suspected 05/18/2022 05/18/2022 05/18/2022 9:56 PM 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
--- OUTSIDE RECORDS SUMMARY | 2024-04-02 18:39 | XMS_ITS | Encounter Summary ---
Author Organization [facility] Healthcare Address [address] [place] [address] Care Team Providers Care Analyst Geochemical Prospecting Name Role Phone Bouchra Vickers MD Primary Care Provider [phone] Encounter Details Date Type Department Care Team (Late st Contact Info) Description 03/09/2021 12:20 PM AIR CONDITIONING MECHANIC Lab [address] [address] Nausea; Fatigue, unspecified type Social History Tobacco Use Types Packs/Day Years Used Date Smoking Tobacco: Never Comments Unknown Sex and Gender Information Value Date Recorded Sex Assigned at Not on file Legal Sex Female 10:19 AM AIR CONDITIONING MECHANIC Gender Identity Not on file Sexual Orientation Not on file documented as of this encounter Plan of Treatment Not on file documented as of this encounter Procedures Procedure Name Priority Date/Time Associated Diagnosis Comments INFLUENZA A/B AND COVID-19 PCR Routine 03/09/2021 9:13 AM AIR CONDITIONING MECHANIC Nausea Fatigue, unspecified type documented in this encounter Results * Influenza A/B and COVID-19 PCR Nasopharyngeal (03/09/2021 9:13 AM AIR CONDITIONING MECHANIC) COVID-19 RNA Not Detected [facility] Comment: Interpretive Data Synonyms for this test include: PCR and NAAT . ??Testing performed by the [facility] Molecular Infectious Disease Laboratory. The 2018-Novel Coronavirus Assay (COVID-19) Real Time RT-PCR assay is for in vitro diagnostic use under FDA emergency use authorization only. A negative RT-PCR result does not preclude infection with COVID-19 and should not be used as the sole basis for treatment or other patient management decisions. ??Additional sample types have been validated according to CLIA regulations. ?? Current Interpretive Data was last revised on May 04, 2020. Influenza A RNA Not Detected [facility] Influenza B RNA Not Detected [facility] Comment: Interpretive Data Testing performed by the [facility] Molecular Infectious Disease Laboratory. This test is performed using the mildred Influenza A/B Assay. This is a real-time RT-PCR test for the qualitative detection of nucleic acid from Influenza A and Influenza B. This assay has been reviewed by the FDA for Emergency Use Authorization (EUA). The performance characteristics have been verified by the [facility] Laboratory. Results should be interpreted in combination with clinical context and a negative result does not rule out infection. ?? Interpretive data last revised 2020. First COVID-19 test? 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 Unknown [facility] Group care resident? No [facility] Hospitalized? No [facility] Is patient in ICU? No [facility] Symptomatic as defined by CDC? Yes [facility] Nasopharyngeal 03/09/2021 9: 13 AM AIR CONDITIONING MECHANIC 03/09/2021 12:54 PM AIR CONDITIONING MECHANIC Narrative [facility] - 03/10/2021 3:51 AM AIR CONDITIONING MECHANIC Patient is employed by/enrolled at:->[employer] Date of Symptom Onset->03/08/21 Tiera Hankins MD LAB MICROBIOLOGY - GENERAL ORDERABLES Final Result [facility] Department [place] [address] documented in this encounter Visit Diagnoses Diagnosis Nausea Nausea alone Fatigue, unspecified type documented in this encounter Additional Health Concerns Infection Onset Date Last Indicated Resolved Time COVID: Suspected 03/09/2021 03/09/2021 03/10/2021 3:52 AM AIR CONDITIONING MECHANIC documented as of this encounter Care Teams Analyst Geochemical Prospecting Relationship Specialty Start Date End Date Bouchra Vickers MD [address] [place] [address] PCP - General 01/18/19 documented as of this encounter
--- OUTSIDE RECORDS SUMMARY | 2024-04-02 18:39 | XMS_ITS | Encounter Summary ---
Author Organization [facility] Address [address] [place] [address] Care Team Providers Care Electrical And Electronic Assembler Name Role Phone Bouchra Vickers MD Primary Care Provider [phone] Reason for Visit * Reason Comments Follow-up 3 month med check - Estradiol patch started 05/18/21 Encounter Details Date Type Department Care Team (Late st Contact Info) Description 08/03/2021 10:00 AM CDT Office Visit [facility] Obstetrical Gynecology [address] [facility] [address] [place] [id number] Praveen Marie MD [address] [place] [address] [address] [place] [address] Menopausal symptoms (Primary Dx) Social History Tobacco Use Types Packs/Day Years Used Date Smoking Tobacco: Never Comments No Sex and Gender Information Value Date Recorded Sex Assigned at Not on file 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 Subjective/Objective Patient ID: Obi Gama is a 56 y.o. female. Chief Complaint Follow-up (3 month med check - Estradiol patch started 05/18/21) HPI: 56-year-old 2, para 2 who presents for med check. Recently seen in the office for well-woman visit. Complaint of increased vasomotor symptoms not responsive to [id number] medications. Had previously been on hormone therapy until 2017. She was restarted at that visit. Doing very well. No complaints. Has rare vasomotor symptom which she has tolerated no breast tenderness. Blood pressure is stable. States that she has a little skin reaction/irritation from the patch however nothing that is bothersome. Review of Systems Constitutional: Negative for activity change, appetite change, fatigue and unexpected weight change. HENT: Negative for sinus pressure and sore throat. Eyes: Negative for visual disturbance. Respiratory: Negative for shortness of breath. Cardiovascular: Negative for chest pain. Gastrointestinal: Negative for abdominal pain, nausea and vomiting. Endocrine: Negative for cold intolerance and polyuria. Genitourinary: Negative for difficulty urinating, dyspareunia, dysuria, hematuria, menstrual problem, pelvic pain, urgency, vaginal bleeding, vaginal discharge and vaginal pain. Musculoskeletal: Negative for back pain. Skin: Negative for color change and rash. Neurological: Negative for dizziness and weakness. Psychiatric/Behavioral: Negative for agitation, sleep disturbance and suicidal ideas. The patient is not nervous/anxious. Breast: Negative for tenderness, breast redness, breast discharge and lump(s). Physical Exam Vitals and nursing note reviewed. Constitutional: Appearance: Normal appearance. Neurological: General: No focal deficit present. Mental Status: She is alert and oriented to person, place, and time. Psychiatric: Mood and Affect: Mood normal. Judgment: Judgment normal. Assessment/Plan Diagnoses and all orders for this visit: Menopausal symptoms (N95.1) (Primary) Responding very well to estradiol patch. Would like to continue. Recommend that she wipe her skin with alcohol wipe, let it air dry then apply patch. Call p.r.n. if there is issues. Should have refills for the year, if not call. *This note is dictated using [employer] voice recognition software, variances in spelling and vocabulary are possible and unintentional* documented in this encounter Plan of Treatment Not on file documented as of this encounter Visit Diagnoses Diagnosis Menopausal symptoms- Primary Symptomatic menopausal or female climacteric states documented in this encounter Additional Health Concerns Infection Onset Date Last Indicated Resolved Time COVID: Recovered Comment:Added based on recent COVID infection. 04/23/2021 04/27/2021 08/21/2021 3:07 AM C DT documented as of this encounter Care Teams Electrical And Electronic Assembler Relationship Specialty Start Date End Date Bouchra Vickers MD [address] [address] PCP - General 01/18/19 documented as of this encounter
--- OUTSIDE RECORDS SUMMARY | 2024-04-02 18:39 | XMS_ITS | Encounter Summary ---
Author Organization [facility] Medical Group Address [address] [place] [address] Care Team Providers Care Community Reinvestment Act Officer Name Role Phone Bouchra Vickers MD Primary Care Provider [phone] Sultan Elvin Mccartney MD Unavailable [phone] Donte Campuzano MD Unavailable [phone] Reason for Visit * Reason Comments Follow-up Encounter Details Date Type Department Care Team (Late st Contact Info) Description 07/26/2022 10:00 AM CDT Office Visit [facility] Pulmonology 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 Gender Identity Not on file Sexual Orientation Not on file documented as of this encounter Last Filed Vital Signs Vital Sign Reading Time Taken Comments Blood Pressure 131/71 07/26/2022 9:41 AM CDT Pulse 78 07/26/2022 9:41 AM CDT Temperature 36.6 ??C (97.9 ??F) 07/26/2022 9:41 AM CD T Respiratory Rate 18 07/26/2022 9:41 AM CDT Oxygen Saturation 93% 07/26/2022 9:41 AM CDT Inhaled Oxygen Concentration - - Weight 49.9 kg (110 lb) 07/26/2022 9:41 AM CDT Height 160 cm (5' 3 ) 07/26/2022 9:41 AM CDT Body Mass Index 19.49 07/26/2022 9:41 AM CDT documented in this encounter Ordered Prescriptions Prescription Sig Dispense Quantity Refills Last Filled Start Date End Date budesonide-glycopy r-formoterol (Breztri Aerosphere) 160-9-4.8 mcg/actuation HFA aerosol inhaler Inhale 2 puffs 2 (two) times a day 10.7 g 11 07/26/2022 11/24/2023 documented in this encounter Progress Notes * Nela Vale, PACKAGE CAR DRIVER - 07/26/2022 10:00 AM CDT Images from the original note were not included. Patient ID: Obi Gama is a 57 y.o. female. HPI. Patient is a 57 y.o. female returns for follow-up of Chronic obstructive pulmonary disease, pulmonary nodule and gastric reflux disease. The patient states that the Breztri did significantly help with the cough. The patient was also found have an elevated IgE at 287.3. The patient states that she would like to hold off on any injectables for the elevated IgE at this time. The patient states she continues to have a cough however it is less severe. The patient states that is nonproductive. The patient states she did wheeze this morning however she is been out of Breztri for approximately four days. The patient states that she did use her albuterol inhaler and it did help. The patient stat es she will only feels short of breath if she does exert herself. The patient continues on Prilosec. Chief Complaint Patient presents with Follow-up Current Medications: Outpatient Encounter Medications as of 07/26/2022 Medication Sig Dispense Refill albuterol HFA (PROVENTIL HFA,VENTOLIN HFA,PROAIR HFA) 90 mcg/actuation inhaler Inhale 2 puffs every4 (four) hours as needed for wheezing 1 each 0 baclofen (LIORESAL) 10 mg tablet 3 (three) times a day cyvclmrfib-wsnrvafl-ppfneiwfwh (Breztri Aerosphere) 160-9-4.8 mcg/actuation HFA aerosol inhaler Inhale 2 puffs 2 (two) times a day 10.7 g 11 cyanocobalamin (Vitamin B-12) 1,000 mcg/mL injection cyanocobalamin (vit B-12) 1,000 mcg/mL injection solution ADMINISTER 1 ML UNDER THE SKIN EVERY MONTH estradioL (VIVELLE-DOT) 0.05 mg/[address] 1 patch on the skin once a week Apply patch twice weekly. 24 patch 3 FLUoxetine (PROzac) 60 mg tablet fluoxetine 60 mg tablet guaiFENesin ER (MUCINEX) 600 mg 12 hr tablet Take 1 tablet (600 mg total) by mouth 2 (two) times a day for 7 days 14 tablet 0 ipratropium (ATROVENT HFA) 17 mcg/actuation inhaler Inhale 0.129 g (2 puffs total) 4 (four) times aday 12.9 g 3 metoprolol XL (TOPROL-XL) 50 mg extended release tablet Rx: Metoprolol Succinate nitroglycerin (NITROSTAT) 0.4 mg SL tablet nitroglycerin 0.4 mg sublingual tablet omeprazole (PriLOSEC) 20 mg capsule Take 1 capsule (20 mg total) by mouth daily 30 capsule 11 polyethylene glycol (MIRALAX) 17 gram/dose powder Miralax 17 gram/dose oral powder Dissolve 1 capful(s) in 8 ounces of water and drink daily predniSONE (DELTASONE) 10 mg tablet prednisone 10 mg tablet [DISCONTINUED] budesonide-formoteroL (SYMBICORT) 160-4.5 mcg/actuation inhaler Inhale 2 puffs 2 (two) times a day Rinse mouth with water after use. Do not swallow. 1 each 0 No facility-administered encounter medications on file as of 07/26/2022. Review of Systems Constitutional: Negative for fever. HENT: Negative for tinnitus. Eyes: Negative for visual disturbance. Respiratory: Positive for cough, shortness of breath and wheezing. Cardiovascular: Negative for chest pain. Gastrointestinal: Negative for diarrhea, nausea and vomiting. Skin: Negative for rash. Neurological: Negative for dizziness. BP 131/71 (BP Location: Left arm, Patient Position: Sitting) Pulse 78 Temp 36.6 ??C (97.9 ??F) (Tympanic) Resp 18 Ht 160 cm (5' 3 ) Wt 49.9 kg (110 lb) SpO2 93% BMI 19.49 kg/m?? Physical Exam Constitutional: General: She is not in acute distress. HENT: Mouth/Throat: Pharynx: No oropharyngeal exudate. Eyes: Pupils: Pupils are equal, round, and reactive to light. Cardiovascular: Rate and Rhythm: Normal rate and regular rhythm. Pulmonary: Effort: Pulmonary effort is normal. Breath sounds: Normal breath sounds. No wheezing. Abdominal: Palpations: Abdomen is soft. Musculoskeletal: Cervical back: Normal range of motion. Imaging: No results found. Assessment & Plan: Diagnoses and all orders for this visit: Panlobular emphysema (HCC) (Primary) Assessment & Plan: Patient continue on Breztri two puffs twice a day. I have sent an prescription to the pharmacy. Thepatient continue to use her albuterol inhaler as needed up to 4 times a day for shortness of breath. The patient would like to hold off on treating the elevated IgE at this time. The patient states her cough is better with the Breztri. Pulmonary nodule Assessment & Plan: I have ordered a CT scan of the chest for October of 2022. Chronic cough Assessment & Plan: The patient did have an elevated IgE but would like to hold off on treating that at this time. The patient states the cough is better with the Breztri. Gastroesophageal reflux disease without esophagitis Assessment & Plan: The patient continues on Prilosec. Other orders - mashpokdkb-ciwepvay-qjtyfadmzs (Breztri Aerosphere) 160-9-4.8 mcg/actuation HFA aerosol inhaler; Inhale 2 puffs 2 (two) times a day Return in about 6 months (around 01/25/2023). Nela Vale NP Cosigned by Donte Campuzaon MD at 07/26/2022 11:14 AM CDT documented in this encounter Miscellaneous Notes * Assessment & Plan Note - Nela Vale NP - 07/26/2022 10:06 AM CDT Associated Problem(s): Gastroesophageal reflux disease without esophagitis The patient continues on Prilosec. * Assessment & Plan Note - Nela Vale NP - 07/26/2022 10:06 AM CDT Associated Problem(s): Chronic cough The patient did have an elevated IgE but would like to hold off on treating that at this time. The patient states the cough is better with the Breztri. * Assessment & Plan Note - Nela Vale NP - 07/26/2022 10:05 AM CDT Associated Problem(s): Panlobular emphysema (HCC) (Resolved 05/30/2023) Patient continue on Breztri two puffs twice a day. I have sent an prescription to the pharmacy. Thepatient continue to use her albuterol inhaler as needed up to 4 times a day for shortness of breath. The patient would like to hold off on treating the elevated IgE at this time. The patient states her cough is better with the Breztri. * Assessment & Plan Note - Nela Vale NP - 07/26/2022 10:05 AM CDT Associated Problem(s): Pulmonary nodule I have ordered a CT scan of the chest for October of 2022. documented in this encounter Plan of Treatment Not on file documented as of this encounter Visit Diagnoses Diagnosis Panlobular emphysema (HCC)- Primary Other emphysema Pulmonary nodule Other diseases of lung, not elsewhere classified Chronic cough Cough Gastroesophageal reflux disease without esophagitis Esophageal reflux documented in this encounter Discontinued Medications Medication Sig Discontinue Reason Start Date End Da te budesonide-formoteroL (SYMBICORT) 160-4.5 mcg/actuation inhaler Inhale 2 puffs 2 (two) times a day Rinse mouth with water after use. Do not swallow. Alternate therapy 05/22/2022 07/26/2022 documented as of this encounter Historical Medications * This list may reflect changes made after this encounter. cyanocobalamin (Vitamin B-12) 1,000 mcg/mL injection cyanocobalamin (vit B-12) 1,000 mcg/mL injection solution ADMINISTER 1 ML UNDER THE SKIN EVERY MONTH predniSONE (DELTASONE) 10 mg tablet prednisone 10 mg tablet 4 added in this encounter Care Teams Community Reinvestment Act Officer Relationship Specialty Start Date End Date Bouchra Vickers MD [address] [address] PCP - General 01/18/19 Sultan Elvin Mccartney MD [address] [address] Consulting Physician Cardiovascular Disease 05/22/22 Donte Campuzano MD [address] [place] [address] Consulting Physician Pulmonary Disease 05/22/22 documented as of this encounter
--- OUTSIDE RECORDS SUMMARY | 2024-04-02 18:39 | XMS_ITS | Encounter Summary ---
Author Organization [facility] Healthcare Address [address] [place] [address] Care Team Providers Care Steel Die Press Set Up Operator Name Role Phone Bouchra Vickers MD Primary Care Provider [phone] Reason for Referral * Diagnostic Imaging (Routine) - Closed Specialty Diagnoses / Procedures Referred By Contac t Referred To Contact Diagnoses Bloating Procedures US Pelvis W Endovaginal Praveen Marie MD [address] [place] [address] Phone: tel: fax: [address] [address] Referral ID Status Reason Start Date Expiration Date Visits Re quested Visits Authorized [id number] Closed 04/06/2021 05/06/2022 1 1 HIATRIC SECURITY NURSE Reason for Visit * Diagnostic Imaging (Routine) - Closed Specialty Diagnoses / Procedures Referred By Contac t Referred To Contact Diagnoses Bloating Procedures US Pelvis W Endovaginal Praveen Marie MD [address] [place] [address] Phone: tel: fax: [address] [phone] Referral ID Status Reason Start Date Expiration Date Visits Re quested Visits Authorized [id number] Closed 04/06/2021 05/06/2022 1 1 Encounter Details Date Type Department Care Team (Latest Contact Info) Description 04/27/2021 9:52 AM PSYCHIATRIC SECURITY NURSE - 04/27/2021 11:59 PM PSYCHIATRIC SECURITY NURSE Hospital Encounter [facility] [place] Ul[facility]ound [facility] [place] [address] Bloating Discharge Disposition: Discharge to home or self care Social History Tobacco Use Types Packs/Day Years Used Date Smoking Tobacco: Never Comments No Sex and Gender Information Value Date Recorded Sex Assigned at Not on file Legal Sex Female 10:19 AM PSYCHIATRIC SECURITY NURSE Gender Identity Not on file Sexual Orientation Not on file documented as of this encounter Medications at Time of Discharge FLUoxetine (PROzac) 60 mg tablet Take 1 tablet (60 mg total) by mouth zigzagger 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 metoprolol XL (TOPROL-XL) 50 mg extended release tablet Take 1 tablet (50 mg total) by mouth daily nitroglycerin (NITROSTAT) 0.4 mg SL tablet For esophageal spasms only polyethylene glycol (MIRALAX) 17 gram/dose powder 04/24/2012 baclofen (LIORESAL) 10 mg tablet 3 (three) times a day 4 miSOPROStoL (CYTOTEC) 200 mcg tablet misoprostol 200 mcg tablet 3 documented as of this encounter Discharge Disposition Disposition Code Departure Means Destination Discharge to home or self care documented in this encounter Plan of Treatment Not on file documented as of this encounter Procedures Procedure Name Priority Date/Time Associated Diagnosis Comments US PELVIS W ENDOVAGINAL Schedule Routine, Read Routine (OP Routine) 04/27/2021 10:20 AM PSYCHIATRIC SECURITY NURSE Bloating documented in this encounter Results * US Pelvis W Endovaginal (04/27/2021 10:20 AM PSYCHIATRIC SECURITY NURSE) Anatomical Region Laterality Modality Pelvis N/A Ultrasound 04/27/2021 3:44 PM PSYCHIATRIC SECURITY NURSE Narrative 04/27/2021 3:46 PM PSYCHIATRIC SECURITY NURSE EXAM DESCRIPTION: ?? US PELVIS W ENDOVAGINAL REASON FOR STUDY: Pelvic pain and bloating. ??Hysterectomy 16 years ago TECHNIQUE: Grayscale ultrasound of the pelvic contents was performed with ?? transabdominal and transvaginal ??transducer. ?? COMPARISON: ?? None available FINDINGS: UTERUS: ?? The uterus is surgically absent. RIGHT OVARY: The right ovary is not seen. ??No adnexal mass.. LEFT OVARY: The left ovary is not seen. ??No adnexal mass.. PELVIC FLUID: ?? There is no evidence of free fluid in the pelvis. OTHER: ?? No other significant findings. IMPRESSION: ?? 1. ?? Status post hysterectomy 2. ?? Nonvisualization of the ovaries. ??No adnexal mass. THIS IS AN ELECTRONICALLY VERIFIED FINAL REPORT 04/27/2021 3:46 PM - Electronically signed by ??Chris Oliva M.D. JA: FRANCISCO D: ??04/27/2021 3:46 PM T: ??04/27/2021 3:46 PM Report ID: [id number] Reading Location: ??[id number] Procedure Note Chris Oliva MD - 04/27/2021 EXAM DESCRIPTION: US PELVIS W ENDOVAGINAL REASON FOR STUDY: Pelvic pain and bloating. Hysterectomy 16 years ago TECHNIQUE: Grayscale ultrasound of the pelvic contents was performed with transabdominal and transvaginal transducer. COMPARISON: None available FINDINGS: UTERUS: The uterus is surgically absent. RIGHT OVARY: The right ovary is not seen. No adnexal mass.. LEFT OVARY: The left ovary is not seen. No adnexal mass.. PELVIC FLUID: There is no evidence of free fluid in the pelvis. OTHER: No other significant findings. IMPRESSION: 1. Status post hysterectomy 2. Nonvisualization of the ovaries. No adnexal mass. THIS IS AN ELECTRONICALLY VERIFIED FINAL REPORT 04/27/2021 3:46 PM - Electronically signed by Chris Oliva M.D. JA: FRANCISCO Report ID: [id number] Reading Location: [id number] Praveen Marie MD IMG US PROCEDURES Final Result documented in this encounter Visit Diagnoses Diagnosis Bloating Flatulence, eructation, and gas pain documented in this encounter Additional Health Concerns Infection Onset Date Last Indicated Resolved Time COVID: Recovered Comment:Added based on recent COVID infection. 04/23/2021 04/27/2021 08/21/2021 3:07 AM C PADDY documented as of this encounter Care Teams Steel Die Press Set Up Operator Relationship Specialty Start Date End Date Bouchra Vickers MD [address] [place] [address] PCP - General 01/18/19 documented as of this encounter
--- OUTSIDE RECORDS SUMMARY | 2024-04-02 18:39 | XMS_ITS | Encounter Summary ---
Author Organization [facility] Healthcare Address [address] [place] [address] Care Team Providers Care English Horn Player Name Role Phone Bouchra Vickers MD Primary Care Provider [phone] Encounter Details Date Type Department Care Team (Late st Contact Info) Description 04/13/2021 11:35 AM PRECISION LATHE OPERATOR Lab [address] [address] Cough; Low grade fever Social History Tobacco Use Types Packs/Day Years Used Date Smoking Tobacco: Never Comments No Sex and Gender Information Value Date Recorded Sex Assigned at Not on file Legal Sex Female 10:19 AM PRECISION LATHE OPERATOR Gender Identity Not on file Sexual Orientation Not on file documented as of this encounter Plan of Treatment Not on file documented as of this encounter Procedures Procedure Name Priority Date/Time Associated Diagnosis Comments INFLUENZA A/B AND COVID-19 PCR Routine 04/13/2021 9:01 AM PRECISION LATHE OPERATOR Cough Low grade fever documented in this encounter Results * (ABNORMAL) Influenza A/B and COVID-19 PCR Nasopharyngeal (04/13/2021 9:01 AM PRECISION LATHE OPERATOR) COVID-19 RNA Detected(A) [facility] Comment: Interpretive Data Synonyms for this test include: PCR and NAAT . ??Testing performed by the [facility] Molecular Infectious Disease Laboratory. The 2018-Novel Coronavirus [...] 04, 2020. Influenza A RNA Not Detected [facility] Influenza B RNA Not Detected [facility] Comment: Interpretive Data Testing performed by the [facility] Molecular Infectious Disease Laboratory. This test is performed using the mildred Influenza A/B Assay. This is a real-time RT-PCR test for the qualitative detection of nucleic acid from Influenza A and Influenza B. This assay has been reviewed by the FDA for Emergency Use Authorization (EUA). The performance characteristics have been verified by the [facility] Laboratory. Results should be interpreted in combination with clinical context and a negative result does not rule out infection. ?? Interpretive data last revised 2020. First COVID-19 test? 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 No [facility] Group care resident? No [facility] Hospitalized? No [facility] Is patient in ICU? No [facility] Symptomatic as defined by CDC? Yes [facility] Nasopharyngeal 04/13/2021 9: 01 AM PRECISION LATHE OPERATOR 04/13/2021 1:40 PM PRECISION LATHE OPERATOR Narrative [facility] - 04/13/2021 11:35 PM PRECISION LATHE OPERATOR Patient is employed by/enrolled at:->[employer] Date of Symptom Onset->04/12/21 Reason for testing?->Symptomatic Tiera Hankins MD LAB MICROBIOLOGY - GENERAL ORDERABLES Final Result [facility] [place] [address] documented in this encounter Visit Diagnoses Diagnosis Cough Low grade fever documented in this encounter Additional Health Concerns Infection Onset Date Last Indicated Resolved Time COVID: Suspected 04/13/2021 04/13/2021 04/13/2021 11:35 PM PRECISION LATHE OPERATOR documented as of this encounter Care Teams English Horn Player Relationship Specialty Start Date End Date Bouchra Vickers MD [address] [place] [address] PCP - General 01/18/19 documented as of this encounter
--- OUTSIDE RECORDS SUMMARY | 2024-04-02 18:39 | XMS_ITS | Encounter Summary ---
Author Organization [facility] Healthcare Address [address] [place] [address] Care Team Providers Care Darklight Inspector Name Role Phone Bouchra Vickers MD Primary Care Provider [phone] Sultan Elvin Mccartney MD Unavailable [phone] Donte Campuzano MD Unavailable [phone] Encounter Details Date Type Department Care Team (Latest Contact Info) Description 06/26/2023 7:55 AM CDT - 06/26/2023 11:59 PM CDT Hospital Encounter [facility] [employer] [address] [facility] [place] [address] Discharge Disposition: Discharge to home or self care Social History Tobacco Use Types Packs/Day Years Used Date Smoking Tobacco: Never Personal Safety Answer Date Recorded Getting School Help Needed Not on file 05/22 Comments No Sex and Gender Information Value Date Recorded Sex Assigned at Not on file Legal Sex Female 10:19 AM PERSONAL DEVELOPMENT COACH Gender Identity Not on file Sexual Orientation [...] 1 tablet (60 mg total) by mouth electrical apprentice 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 metoprolol XL (TOPROL-XL) 50 mg [...] Procedure Name Priority Date/Time Associated Diagnosis Comments PET OUTSIDE REFERENCE Routine 06/26/2023 7:55 AM CDT documented in this encounter Results * PET Outside Reference (06/26/2023 7:55 AM CDT) Narrative [id number] - 07/02/2023 8:29 AM CDT This order has been auto-finalized and does not contain a result. us Provider Transcribed Order IMG PET PROCEDURES Fi nal Result RAD_[id number] documented in this encounter Visit Diagnoses Not on filedocumented in this encounter Care Teams Darklight Inspector Relationship Specialty Start Date End Date Bouchra Vickers MD [address] [place] [address] PCP - General 01/18/19 Sultan Elvin Mccartney MD [address] [address] Consulting Physician Cardiovascular Disease 05/22/22 Donte Campuzano MD [address] [place] [address] Consulting Physician Pulmonary Disease 05/22/22 documented as of this encounter
--- OUTSIDE RECORDS SUMMARY | 2024-04-02 18:39 | XMS_ITS | Encounter Summary ---
Author Organization [facility] Healthcare Address [address] [place] [address] Care Team Providers Care Veterinary X Ray Operator Name Role Phone Bouchra Vickers MD Primary Care Provider [phone] Sultan Elvin Mccartney MD Unavailable [phone] Donte Campuzano MD Unavailable [phone] Reason for Referral * MRI/CAT/PET Scan (Routine) - Closed Specialty Diagnoses / Procedures Referred By Contac t Referred To Contact Radiology Diagnoses Pulmonary nodule Procedures CT Lung [place] [address] [place] [address] [address] [place] [address] Phone: tel: fax: [facility] [address] [place] [address] Referral ID Status Reason Start Date Expiration Date Visits Re quested Visits Authorized [id number] Closed 07/02/2023 07/31/2024 1 1 Reason for Visit * Reason Comments Follow-up Encounter Details Date Type Department Care Team (Late st Contact Info) Description 07/02/2023 1:00 PM CDT Office Visit [facility] Pulmonology [address] [facility] [address] [place] [phone] Donte Campuzano MD [address] [facility] [address] [place] [address] Centrilobular emphysema (HCC) (Primary Dx); Pulmonary nodule; Gastroesophageal reflux disease without esophagitis Social History Tobacco Use Types Packs/Day Years Used Date Smoking Tobacco: Never Personal Safety Answer Date Recorded Getting School Help Needed Not on file 05/22 Comments No Sex and Gender Information Value Date Recorded Sex Assigned at Not on file 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 Gender Identity Not on file Sexual Orientation Not on file documented as of this encounter Last Filed Vital Signs Vital Sign Reading Time Taken Comments Blood Pressure - - Pulse 72 07/02/2023 12:56 PM CDT Temperature - - Respiratory Rate 18 07/02/2023 12:56 PM CDT Oxygen Saturation 99% 07/02/2023 12:56 PM CDT Inhaled Oxygen Concentration - - Weight 50.8 kg (112 lb) 07/02/2023 12:56 PM CDT Height 160 cm (5' 3 ) 07/02/2023 12:56 PM CDT Body Mass Index 19.84 07/02/2023 12:56 PM CDT documented in this encounter Progress Notes * Donte Campuzano MD - 07/02/2023 1:00 PM CDT Images from the original note were not included. Progress Note Patient: Obi Gama ( - 1965) is a 57 y.o. female. Visit Date: 07/02/2023 History of Present Illness: The patient is a pleasant 57 year old female that returns for follow-up after PFTs and PET scan. The patient had both studies performed at [facility] and her FEV1 was 46% predicted and the DLCO was 58% predicted. The PET scan revealed an SUV of 11 on the right lower lobe nodule. I did communicate with the Interventional Radiology Department who is agreeable to proceed with a CT directed biopsy of the right lower lobe nodule on 10 July 2023. The patient denies any fevers or chills and does have a chronic cough and has difficulty expectorating any secretions. She did try Mucinex withoutany change in her sputum. She does get short of breath walking up 2 flights of stairs and does havesome wheezing after the exertion. She continues use breztri 2 puffs b.i.d. and albuterol on a p.r.n. basis in addition to Mucinex. Past Medical History: Past Medical History: Diagnosis Date Emphysema lung (HCC) Esophageal spasm IBS (irritable bowel syndrome) Migraine no longer Mitral valve prolapse Mood disorder (HCC) Surgical History: Past Surgical History: Procedure Laterality Date BLADDER SUSPENSION CHOLECYSTECTOMY HYSTERECTOMY Current Medications: Current Outpatient Medications Medication Sig Dispense Refill albuterol HFA (PROVENTIL HFA,VENTOLIN HFA,PROAIR HFA) 90 mcg/actuation inhaler Inhale 2 puffs every4 (four) hours as needed for wheezing 1 each 0 gstmbyzaph-phlwyyok-xlljvjzguq (Breztri Aerosphere) 160-9-4.8 mcg/actuation HFA aerosol inhaler [...] 8 ounces of water and drink daily No current facility-administered medications for this visit. [...] for dizziness and light-headedness. Physical Exam: Vitals: 07/02/23 1256 Pulse: 72 Resp: 18 SpO2: 99% Weight: 50.8 kg (112 lb) Height: 160 cm (5' 3 ) [...] person, place, and time. Data Reviewed Images: No results found. Assessment and Plan: Diagnoses and all orders for this visit: Centrilobular emphysema (HCC) (Primary) Assessment & Plan: The patient has stage III COPD. She will continue with breztri 2 puffs b.i.d. and p.r.n. albuterol.She is using Mucinex 600 mg p.o. b.i.d. to attempt to thin secretions. Pulmonary nodule Assessment & Plan: The PET scan revealed a 1.8 cm right lower lobe nodule abutting the diaphragm and the SUV was 11. Iwas informed by Interventional Radiology that Dr. Nam could perform a CT-directed biopsy on 10 July 2023. I will check a CBC, PT PTT and she will have the blood work done today. She does use ibuprofen for chronic neck pain and I did ask her to stop this medication for the next week. Orders: - CBC with auto differential; Future - Protime-INR; Future - aPTT; Future - CT Lung Needle Biopsy Right; Future Gastroesophageal reflux disease without esophagitis Assessment & Plan: The GERD symptoms are controlled with Prilosec Rendering Provider & Department: Donte Campuzano MD documented in this encounter Miscellaneous Notes * Assessment & Plan Note - Donte Campuzano MD - 07/02/2023 1:29 PM CDT Associated Problem(s): Centrilobular emphysema (HCC) The patient has stage III COPD. She will continue with breztri 2 puffs b.i.d. and p.r.n. albuterol.She is using Mucinex 600 mg p.o. b.i.d. to attempt to thin secretions. * Assessment & Plan Note - Donte Campuzano MD - 07/02/2023 1:28 PM CDT Associated Problem(s): Gastroesophageal reflux disease without esophagitis The GERD symptoms are controlled with Prilosec * Assessment & Plan Note - Donte Campuzano MD - 07/02/2023 1:28 PM CDT Associated Problem(s): Pulmonary nodule The PET scan revealed a 1.8 cm right lower lobe nodule abutting the diaphragm and the SUV was 11. Iwas informed by Interventional Radiology that Dr. Nam could perform a CT-directed biopsy on 10 July 2023. I will check a CBC, PT PTT and she will have the blood work done today. She does use ibuprofen for chronic neck pain and I did ask her to stop this medication for the next week. documented in this encounter Plan of Treatment Not on file documented as of this encounter Results * CT Lung Needle Biopsy Right (07/10/2023 9:53 AM CDT) Anatomical Region Laterality Modality Lung N/A Computed Tomogra phy, Computed Radiography 07/10/2023 10:0 3 AM CDT Narrative 07/10/2023 10:08 AM CDT EXAM DESCRIPTION: ?? CT NEEDLE BIOPSY LUNG RIGHT HISTORY: ?? Right lower lobe nodule ?? Right lower lobe lung nodule seen on prior imaging requiring CT guided biopsy ?CT guided percutaneous biopsy of this mass is requested. COMPARISON: ?? CT chest 05/28/2023; PET-CT 06/26/2023 TECHNIQUE: The risks of the procedure were discussed with the patient. ?? Written and verbal informed consent was obtained. ?? The patient was placed on the CT table in the prone position. The skin was marked. ??The skin was prepped and draped in sterile fashion. ??1% lidocaine was utilized as a local anesthetic. ??Under CT guidance, a 17-gauge coaxial needle was directed to the right lower lobe lung nodule. ??Needle placement was documented with CT images. ??Through this coaxial needle and under CT guidance, four separate 18-gauge core biopsy samples were obtained and given to pathology. ? Conscious sedation: Conscious sedation was administered with continuous monitoring of patient's vital signs and oxygenation by the dedicated nurse. Nursing monitoring lasted for approximately 42 minutes during the procedure. Medications administered as follows: ? Versed 1 mg, IV ? Fentanyl 50 mcg, IV ? Estimated Blood Loss: <5 mL FINDINGS: CT imaging after the procedure demonstrates a small amount of hemorrhage in the biopsy tract. The patient tolerated the procedure well and was transported to the recovery unit. ??CT imaging demonstrates the needle in the right lower lobe lung nodule. ??There is no immediate significant postprocedural pneumothorax that requires a chest tube. CT imaging performed using dose optimization techniques as appropriate to exam in accordance with CT guided procedure protocols. IMPRESSION: Technically successful CT-guided percutaneous core biopsies of a right lower lobe lung nodule. ??Pathology is pending. THIS IS AN ELECTRONICALLY VERIFIED FINAL REPORT 07/10/2023 10:08 AM - Electronically signed by ??Carlos KEY D: ??07/10/2023 10:08 AM T: Report ID: [id number] Reading Location: ??[id number] Procedure Note Carlos Nam MD - 07/10/2023 EXAM DESCRIPTION: CT NEEDLE BIOPSY LUNG RIGHT HISTORY: Right lower lobe nodule Right lower lobe lung nodule seen on prior imaging requiring CT guidedbiopsy CT guided percutaneous biopsy of this mass is requested. COMPARISON: CT chest 05/28/2023; PET-CT 06/26/2023 TECHNIQUE: The risks of the procedure were discussed with the patient. Written and verbal informed consent was obtained. The patient was placed on the CT table in the prone position. The skin was marked. The skin was prepped and draped in sterile fashion. 1% lidocainewas utilized as a local anesthetic. Under CT guidance, a 17-gauge coaxialneedle was directed to the right lower lobe lung nodule. Needle placement was documented with CT images. Through this coaxial needle and under CTguidance, four separate 18-gauge core biopsy samples were obtained and given to pathology. Conscious sedation: Conscious sedation was administered with continuous monitoring of patient's vital signs and oxygenation by the dedicatednurse. Nursing monitoring lasted for approximately 42 minutes during theprocedure. Medications administered as follows: Versed 1 mg, IV Fentanyl 50 mcg, IV Estimated Blood Loss: <5 mL FINDINGS: CT imaging after the procedure demonstrates a small amount of hemorrhage in the biopsy tract. The patient tolerated the procedure welland was transported to the recovery unit. CT imaging demonstrates the needlein the right lower lobe lung nodule. There is no immediate significant postprocedural pneumothorax that requires a chest tube. CT imagingperformed using dose optimization techniques as appropriate to exam in accordancewith CT guided procedure protocols. IMPRESSION: Technically successful CT-guided percutaneous core biopsies ofa right lower lobe lung nodule. Pathology is pending. THIS IS AN ELECTRONICALLY VERIFIED FINAL REPORT 07/10/2023 10:08 AM - Electronically signed by Carlos KEY T: Report ID: [id number] Reading Location: [id number] Result [facility] Donte Campuzano MD IMG CT PROCEDURES Final R esult * aPTT (07/02/2023 2:07 PM CDT) Pathologist [facility] aPTT 27 22 - 37 sec Comment: Interpretive data aPTT test has not been evaluated for monitoring heparin therapy. The anti-Xa is the preferred test. Current interpretive data was last revised on 2019. Blood 07/02/2023 2:07 PM CDT 07/02/2023 2:29 PM CDT Result [facility] Donte Campuzano MD LAB BLOOD ORDERABLES Kathy l Result Performing Organization Address [facility] de Phone Number [address] [place] [address] * Protime-INR (07/02/2023 2:07 PM CDT) Pathologist [facility] PT 12.1 12.0 - 14.6 sec INR 0.9 0.9 - 1.2 [facility] Comment: Ref Range High Interpretive data Oral anticoagulant therapeutic ranges: Venous thromboembolism prophylaxis or treatment: 2.0-3.0 CARDIOLOGY Standard range: 2.0-3.0 High-intensity range: 2.5-3.5 Refer to indication-specific guidelines for appropriate target ranges for prosthetic heart valve replacement. Current interpretive data was last revised on 2019. Blood 07/02/2023 2:07 PM CDT 07/02/2023 2:29 PM CDT Result [facility] Donte Campuzano MD LAB BLOOD ORDERABLES Kathy l Result Performing Organization Address City/[facility] Co de Phone Number [address] [place] [address] * CBC with auto differential (07/02/2023 2:07 PM CDT) WBC 7.7 3.8 - 9.9 K/cumm Hgb 13.0 11.9 - 15.5 g/dL [facility] Hct 39.1 35.6 - 45.5 % [facility] Plt 227 150 - 400 K/cumm [facility] MPV 10.2 9.1 - 12.3 fL [facility] RBC 4.38 3.90 - 5.20 M/cumm [facility] MCV 89.3 81.3 - 96.4 fL [facility] MCH 29.7 27.1 - 33.3 pg [facility] MCHC 33.2 32.3 - 35.7 g/dL [facility] RDW CV 12.6 11.1 - 14.9 % [facility] RDW SD 41.4 35.7 - 48.1 fL [facility] NRBC abs 0.00 0.00 - 0.01 K/cumm [facility] Blood 07/02/2023 2:07 PM CDT 07/02/2023 2:29 PM CDT us Donte Campuzano MD LAB BLOOD ORDERABLES Kathy l Result [facility] [address] [facility] Department [place] [address] documented in this encounter Visit Diagnoses Diagnosis Centrilobular emphysema (HCC)- Primary Pulmonary nodule Other diseases of lung, not elsewhere classified Gastroesophageal reflux disease without esophagitis Esophageal reflux Pulmonary nodule Other diseases of lung, not elsewhere classified documented in this encounter Care Teams Veterinary X Ray Operator Relationship Specialty Start Date End Date Bouchra Vickers MD [address] [address] PCP - General 01/18/19 Sultan Elvin Mccarteny MD [address] [address] Consulting Physician Cardiovascular Disease 05/22/22 Donte Campuzano MD [address] [facility] [address] [place] [address] Consulting Physician Pulmonary Disease 05/22/22 documented as of this encounter
--- OUTSIDE RECORDS SUMMARY | 2024-04-02 18:39 | XMS_ITS | Encounter Summary ---
Author Organization [facility] Medical Group Address [address] [facility] [address] [place] [address] Care Team Providers Care Snow Technician Name Role Phone Bouchra Vickers MD Primary Care Provider [phone] Sultan Elvin Mccartney MD Unavailable [phone] Donte Campuzano MD Unavailable [phone] Reason for Visit * Reason Comments Follow-up Encounter Details Date Type Department Care Team (Late st Contact Info) Description 06/12/2022 2:30 PM CDT Office Visit [facility] Pulmonology [address] [facility] [address] [place] [address] Nela Vale, DAY CARE WORKER [address] [facility] [address] [place] [address] Panlobular emphysema (CMS/HCC) (HCC) (Primary Dx); Pulmonary nodule; Gastroesophageal reflux disease without esophagitis Social History Tobacco Use Types Packs/Day Years Used Date Smoking Tobacco: Never Comments No Sex and Gender Information Value Date Recorded Sex Assigned at Not on file 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 Gender Identity Not on file Sexual Orientation Not on file documented as of this encounter Last Filed Vital Signs Vital Sign Reading Time Taken Comments Blood Pressure 105/64 06/12/2022 2:22 PM CDT Pulse 72 06/12/2022 2:22 PM CDT Temperature 36.6 ??C (97.8 ??F) 06/12/2022 2:22 PM CD T Respiratory Rate 18 06/12/2022 2:22 PM CDT Oxygen Saturation 93% 06/12/2022 2:22 PM CDT Inhaled Oxygen Concentration - - Weight 49.4 kg (109 lb) 06/12/2022 2:22 PM CDT Height 160 cm (5' 3 ) 06/12/2022 2:22 PM CDT Body Mass Index 19.31 06/12/2022 2:22 PM CDT documented in this encounter Ordered Prescriptions Prescription Sig Dispense Quantity Refills Last Filled Start Date End Date omeprazole (PriLOSEC) 20 mg capsule Take 1 capsule (20 mg total) by mouth daily 30 capsule 11 06/12/2022 documented in this encounter Progress Notes * Nela Vale, DAY CARE WORKER - 06/12/2022 2:30 PM CDT Images from the original note were not included. Patient ID: Obi Gama is a 56 y.o. female. HPI. Patient is a 56 y.o. female returns for follow-up after hospitalization. The patient was hospitalized due to shortness of breath. The patient states that she continues to feel short of breath and does have a cough that is nonproductive. The patient states that the cough did start after having COVID in March of 2021. The patient did have a pulmonary function test on May 21, 2022. The results are below and were shared with the patient. The patient is currently using Symbicort two puffs twice a day. The patient states that she is using her Atrovent 4 times a day. The patient states she is using her albuterol two to 3 times a day. The patient states she still continues with a cough.The patient denies postnasal drip at she does states she is a little bit of gastric reflux. The patient states that the cough is dry. The patient states she does feel weak. The patient states cough does not change with seasons. The patient is not on any blood pressure medicine that would cause a nonproductive cough. The patient has not had a change in her environment. The patient did have a CTA of the chest on May 28, 2022. The results are below and were shared with the patient. Chief Complaint Patient presents with Follow-up Current Medications: Outpatient Encounter Medications as of 06/12/2022 Medication Sig Dispense Refill albuterol HFA (PROVENTIL HFA,VENTOLIN HFA,PROAIR HFA) 90 mcg/actuation inhaler Inhale 2 puffs every4 (four) hours as needed for wheezing 1 each 0 baclofen (LIORESAL) 10 mg tablet 3 (three) times a day budesonide-formoteroL (SYMBICORT) 160-4.5 mcg/actuation inhaler Inhale 2 puffs 2 (two) times a day Rinse mouth with water after use. Do not swallow. 1 each 0 estradioL (VIVELLE-DOT) 0.05 mg/[address] 1 [...] SL tablet nitroglycerin 0.4 mg sublingual tablet polyethylene glycol (MIRALAX) 17 gram/dose powder Miralax 17 gram/dose oral powder Dissolve 1 capful(s) in 8 ounces of water and drink daily [DISCONTINUED] miSOPROStoL (CYTOTEC) 200 mcg tablet misoprostol 200 mcg tablet [DISCONTINUED] pantoprazole DR (PROTONIX) 40 mg EC tablet Take 1 tablet (40 mg total) by mouth daily for 14 days 14 tablet 0 omeprazole (PriLOSEC) 20 mg capsule Take 1 capsule (20 mg total) by mouth daily 30 capsule 11 No facility-administered encounter medications on file as of 06/12/2022. Review of Systems Constitutional: Negative for fever. HENT: Negative for tinnitus. Eyes: Negative for visual disturbance. Respiratory: Positive for cough and shortness of breath. Negative for wheezing. Cardiovascular: Negative for chest pain. Gastrointestinal: Negative for diarrhea, nausea and vomiting. Skin: Negative for rash. Neurological: Negative for dizziness. BP 105/64 (BP Location: Left arm, Patient Position: Sitting) Pulse 72 Temp 36.6 ??C (97.8 ??F) Resp 18 Ht 160 cm (5' 3 ) Wt 49.4 kg (109 lb) SpO2 93% BMI 19.31 kg/m?? Physical Exam Constitutional: General: She is not in acute distress. HENT: Mouth/Throat: Pharynx: No oropharyngeal exudate. Eyes: Pupils: Pupils are equal, round, and reactive to light. Cardiovascular: Rate and Rhythm: Normal rate and regular rhythm. Pulmonary: Effort: Pulmonary effort is normal. Breath sounds: Normal breath sounds. No wheezing. Abdominal: Palpations: Abdomen is soft. Musculoskeletal: Cervical back: Normal range of motion. Imagin05/21/22 PFT Spirometry data is compatible with moderate obstructive pulmonary disease with a positive bronchodilator response Lung volumes are normal. DLCO is reduced compatible with diffusion impairment. Findings can be seen with pulmonary parenchymal / pulmonary vascular disorders. Suggest clinical correlation. 05/18/22 CTA IMPRESSION: No evidence of pulmonary embolus 7 [...] Multifocal bilateral mucous plugging as described. Assessment & Plan: Diagnoses and all orders for this visit: Panlobular emphysema (CMS/HCC) (HCC) (Primary) Assessment & Plan: I did give the patient a sample [...] also provided with a spacer to use withher inhalers. Orders: - IgE; Future Pulmonary nodule Assessment & Plan: I have ordered a CT scan of the chest for October of 2022. Orders: - CT Chest WO Contrast; Future Gastroesophageal reflux disease without esophagitis Assessment & Plan: I did order omeprazole due to the patient stating that she does have some GERD. Hopefully this willhelp with her cough. Other orders - omeprazole (PriLOSEC) 20 mg capsule; Take 1 capsule (20 mg total) by mouth daily Return in about 4 weeks (around 07/10/2022). Nela Vale NP Cosigned by Donte Campuzano MD at 06/12/2022 4:18 PM CDT documented in this encounter Miscellaneous Notes * Assessment & Plan Note - Nela Vale NP - 06/12/2022 3:56 PM CDT Associated Problem(s): Gastroesophageal reflux disease without esophagitis I did order omeprazole due to the patient stating that she does have some GERD. Hopefully this willhelp with her cough. * Assessment & Plan Note - Nela Vale NP - 06/12/2022 3:55 PM CDT Associated Problem(s): Panlobular emphysema (HCC) (Resolved 05/30/2023) I did give the patient a sample [...] also provided with a spacer to use withher inhalers. * Assessment & Plan Note - Nela Vale NP - 06/12/2022 3:55 PM CDT Associated Problem(s): Pulmonary nodule I have ordered a CT scan of the chest for October of 2022. documented in this encounter Plan of Treatment Not on file documented as of this encounter Results * (ABNORMAL) IgE (06/12/2022 4:14 PM CDT) IgE 287.3(H) 1.0 - 100.0 IUnits/mL [facility] Blood 06/12/2022 4:14 PM CDT 06/12/2022 5:10 PM CDT us Nela Vale NP LAB BLOOD ORDERABLES Fin al Result [facility] [address] [facility] [place] [address] documented in this encounter Visit Diagnoses Diagnosis Panlobular emphysema (HCC)- Primary Other emphysema Pulmonary nodule Other diseases of lung, not elsewhere classified Gastroesophageal reflux disease without esophagitis Esophageal reflux documented in this encounter Discontinued Medications Medication Sig Discontinue Reason Start Date End Da te pantoprazole DR (PROTONIX) 40 mg EC tabletIndications:Stre ss Ulcer Prophylaxis Take 1 tablet (40 mg total) by mouth daily for 14 days 05/23/2022 06/12/2022 miSOPROStoL (CYTOTEC) 200 mcg tablet misoprostol 200 mcg tablet 06/12/2022 documented as of this encounter Care Teams Snow Technician Relationship Specialty Start Date End Date Bouchra Vickers MD [address] [facility] [address] [place] [address] PCP - General 01/18/19 Sultan Elvin Mccartney MD [address] [facility] [address] [place] [address] Consulting Physician Cardiovascular Disease 05/22/22 oDnte Campuzano MD [address] [facility] [address] [place] [id number] Consulting Physician Pulmonary Disease 05/22/22 documented as of this encounter
--- OUTSIDE RECORDS SUMMARY | 2024-04-02 18:39 | XMS_ITS | Encounter Summary ---
Author Organization [facility] Healthcare Address [address] [place] [address] Care Team Providers Care Helper Shear Operator Name Role Phone Bouchra Vickers MD Primary Care Provider [phone] Sultan Elvin Mccartney MD Unavailable [phone] Donte Campuzano MD Unavailable [phone] Reason for Referral * MRI/CAT/PET Scan (Routine) - Closed Specialty Diagnoses / Procedures Referred By Contac t Referred To Contact Radiology Procedures CT Chest WO Contrast ProviderBlessing MD [address] [place] [address] Phone: tel: Referral ID Status Reason Start Date Expiration Date Visits Re quested Visits Authorized [id number] Closed 06/04/2023 2024 1 1 CS MANUFACTURING 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 Encounter Details Date Type Department Care Team (Late st Contact Info) Description 06/04/2023 Orders Only [facility] Medical Group Pulmonology [address] [facility] [address] [place] [phone] ProviderBlessing MD [address] [place] [address] Social History Tobacco Use Types Packs/Day Years Used Date Smoking Tobacco: Never Personal Safety Answer Date Recorded Getting School Help Needed Not on file 05/22 Comments No Sex and Gender Information Value Date Recorded Sex Assigned at Not on file Legal Sex Female 10:19 AM OPTICS MANUFACTURING TECHNICIAN Gender Identity Not on file Sexual Orientation Not on file documented as of this encounter Plan of Treatment Not on file documented as of this encounter Procedures Procedure Name Priority Date/Time Associated Diagnosis Comments CT CHEST WO CONTRAST Schedule Routine, Read Routine (OP Routine) 05/28/2023 12:02 PM OPTICS MANUFACTURING TECHNICIAN documented in this encounter Results * CT Chest WO Contrast (05/28/2023 12:02 PM OPTICS MANUFACTURING TECHNICIAN) Anatomical Region Laterality Modality Body N/A Computed Tomogra phy us Historical Provider MD TUCKER CT PROCEDURES Final R esult documented in this encounter Visit Diagnoses Not on filedocumented in this encounter Care Teams Helper Shear Operator Relationship Specialty Start Date End Date Bouchra Vickers MD [address] [address] PCP - General 01/18/19 Sultan Elvin Mccartney MD [address] [facility] [address] [address] Consulting Physician Cardiovascular Disease 05/22/22 Donte Campuzano MD [address] [facility] [address] [place] [address] Consulting Physician Pulmonary Disease 05/22/22 documented as of this encounter
--- OUTSIDE RECORDS SUMMARY | 2024-04-02 18:39 | XMS_ITS | Encounter Summary ---
Author Organization [facility] Medical Group Address [address] [facility] [address] [place] [address] Care Team Providers Care Brim Blocker Name Role Phone Bouchra Vickers MD Primary Care Provider [phone] Sultan Elvin Mccartney MD Unavailable [phone] Donte Campuzano MD Unavailable [phone] Reason for Visit * Reason Onset Date Comments Medical Question/Miscellaneous 06/17/2022 Encounter Details Date Type Department Care Team (Late st Contact Info) Description 06/17/2022 Telephone [facility] Medical Group Pulmonology [address] [facility] [address] [place] [address] Kristie Vale MA Medical Question/Miscellaneous Social History Tobacco Use Types Packs/Day Years Used Date Smoking Tobacco: Never Comments No Sex and Gender Information Value Date Recorded Sex Assigned at Not on file Legal Sex Female 10:19 AM HEALTH SERVICE COORDINATOR Gender Identity Not on file Sexual Orientation Not on file documented as of this encounter Miscellaneous Notes * Telephone Encounter - Kristie Vale MA - 06/17/2022 3:10 PM CDT Patient informed * Telephone Encounter - Kristie Vale MA - 06/17/2022 3:00 PM CDT Patient called in stating that she received a message stating a referral to an hotel service manager has been entered due to her elevated IgE. She states that she is not interested in seeing another provider andshe only like your treatment, please advise. documented in this encounter Plan of Treatment Not on file documented as of this encounter Visit Diagnoses Not on filedocumented in this encounter Care Teams Brim Blocker Relationship Specialty Start Date End Date Bouchra Vickers MD [address] [address] PCP - General 01/18/19 Sultan Elvin Mccartney MD [address] [facility] [address] [address] Consulting Physician Cardiovascular Disease 05/22/22 Donte Campuzano MD [address] [facility] [address] [place] [address] Consulting Physician Pulmonary Disease 05/22/22 documented as of this encounter
--- OUTSIDE RECORDS SUMMARY | 2024-04-02 18:39 | XMS_ITS | Encounter Summary ---
Author Organization [facility] Healthcare Address [address] [place] [address] Care Team Providers Care Barking Machine Feeder Name Role Phone Bouchra Vickers MD Primary Care Provider [phone] Encounter Details Date Type Department Care Team (Latest Contact Info) Description 05/18/2021 12:30 PM SUPERVISOR MODEL MAKING - 05/18/2021 11:59 PM SUPERVISOR MODEL MAKING Hospital Encounter [facility] [place] [address] Well woman exam Discharge Disposition: Discharge to home or self care Social History Tobacco Use Types Packs/Day Years Used Date Smoking Tobacco: Never Comments No Sex and Gender Information Value Date Recorded Sex Assigned at Not on file Legal Sex Female 10:19 AM SUPERVISOR MODEL MAKING Gender Identity Not on file Sexual Orientation Not on file documented as of this encounter Medications at Time of Discharge FLUoxetine (PROzac) 60 mg tablet Take 1 tablet (60 mg total) by mouth geology faculty member 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 metoprolol XL (TOPROL-XL) 50 mg [...] or self care documented in this encounter Miscellaneous Notes * Result Encounter Note - Praveen Marie MD - 05/18/2021 11:59 PM SUPERVISOR MODEL MAKING Please notify patient that Pap smear is normal. RVISOR MODEL MAKING documented in this encounter Plan of Treatment Not on file documented as of this encounter Procedures Procedure Name Priority Date/Time Associated Diagnosis Comments PAP AND HIGH RISK HPV, REFLEX TO GENOTYPING Routine 05/18/2021 10:53 AM SUPERVISOR MODEL MAKING Well woman exam documented in this encounter Results * Pap and High Risk HPV, reflex to Genotyping (05/18/2021 10:53 AM SUPERVISOR MODEL MAKING) Thin prep (Pap test) 05/18/2021 10:53 AM SUPERVISOR MODEL MAKING 05/21/2021 10:53 AM SUPERVISOR MODEL MAKING Narrative PATHOLOGY [facility] - 05/24/2021 11:29 AM SUPERVISOR MODEL MAKING [facility] Department of Pathology [address] [place], [place] [id number] Final Report with Addendum Note to Patients: [...] and explain the details. Patient Name: ??OBI ELLIS Address: ??[address], ?? [place], [place] ??[address] Gender: ??F : ??1965 (Age: 55) Service: ??Laboratory Location: ?? Hospital #: ??[id number] Patient Type: ??[facility] SPECIMEN Taken: ??05/18/2021 Received: ??05/21/2021 Accessioned:: ??05/22/2021 Reported: ??05/24/2021 Physician(s): Praveen Marie M.D. [facility] Diagnosis: Source of Specimen: ? SCREENING THIN [...] 59, 66 and 68. Test performed utilizing [employer] Aptima assay. ?? RICHARD Valera(ASCP) ??Report Electronically [...] determined by the Surgical Pathology Department at [facility] as part of an ongoing quality process lead program and in compliance with federally mandated [...] characteristics determined by the Surgical Pathology Department [facility]. ??It has not been cleared or approved by the U. S. Food and Drug Administration. Praveen Marie MD LAB CYTOLOGY ORDERABLES Final Result PATHOLOGY [facility] documented in this encounter Visit Diagnoses Diagnosis Well woman exam Routine general medical examination at a health care facility documented in this encounter Additional Health Concerns Infection Onset Date Last Indicated Resolved Time COVID: Recovered Comment:Added based on recent COVID infection. 04/23/2021 04/27/2021 08/21/2021 3:07 AM C DT documented as of this encounter Care Teams Barking Machine Feeder Relationship Specialty Start Date End Date Bouchra Vickers MD [address] [address] PCP - General 01/18/19 documented as of this encounter
--- OUTSIDE RECORDS SUMMARY | 2024-04-02 18:39 | XMS_ITS | Encounter Summary ---
Author Organization [facility] Medical Group Address [address] [facility] [address] [place] [address] Care Team Providers Care Strategic Sourcing Specialist Name Role Phone Bouchra Vickers MD Primary Care Provider Reason for Visit * Reason Comments Well Women Visit No fmhx breast cance r Follow-up Ultrasound done 04/27 for pelvic pain Encounter Details Date Type Department Care Team (Late st Contact Info) Description 05/18/2021 10:15 AM STATISTICAL DEVELOPER Office Visit [facility] Medical [facility] Obstetrical Gynecology [address] [facility] [address] [place] [phone] Praveen Marie MD [address] [place] [id number] Well woman exam (Primary Dx); Vaginal atrophy; Menopausal symptoms; Bloating Social History Tobacco Use Types Packs/Day Years Used Date Smoking Tobacco: Never Comments No Sex and Gender Information Value Date Recorded Sex Assigned at Not on file Legal Sex Female 10:19 AM STATISTICAL DEVELOPER Gender Identity Not on file Sexual Orientation Not on file documented as of this encounter Last Filed Vital Signs Vital Sign Reading Time Taken Comments Blood Pressure 114/82 05/18/2021 10:01 AM STATISTICAL DEVELOPER Pulse - - Temperature - - Respiratory Rate - - Oxygen Saturation - - Inhaled Oxygen Concentration - - Weight 49.9 kg (110 lb) 05/18/2021 10:01 AM STATISTICAL DEVELOPER Height 160 cm (5' 2.99 ) 05/18/2021 10:01 AM STATISTICAL DEVELOPER Body Mass Index 19.49 05/18/2021 10:01 AM STATISTICAL DEVELOPER documented in this encounter Ordered Prescriptions Prescription Sig Dispense Quantity Refills Last Filled Start Date End Date estradioL (VIVELLE-DOT) 0.05 mg/[address] a[address] symptoms [address] 1 patch on the skin once a week Apply patch twice weekly. 24 patch 3 05/18/2021 06/17/2023 estradioL (VIVELLE-DOT) 0.05 mg/[address]Indications:[address] ausal symptoms [address] 1 patch on the skin once a week 24 patch 3 05/18/2021 05/18/2021 documented in this encounter Progress Notes * Praveen Marie MD - 05/18/2021 10:15 AM CST Subjective Patient ID: Obi Ellis is a 55 y.o. female. Well Women Visit (No fmhx breast cancer ) and Follow-up (Ultrasound done 04/27/21 for pelvic pain) Last Pap:12/06/15 NILM HPV - Mammogram:09/22/15 B1 Colonoscopy:2019 per pt HPI 55-year-old 2, para 2 who presents for well-woman visit. Doing well. Postmenopausal, continues with increased vasomotor symptoms. Has tried various bfqs-bao-rqkeanf remedies including Estroven, black cohosh an lucille N. no improvement. Previously on HRT until 2017. Discontinued medication on her own. Doing self-breast exams occasionally. No breast issues. Mammogram is scheduled for next month. Colonoscopy is up-to-date. Recently seen in the office for pelvic pain/bloating. Pelvic ultrasound was unremarkable. Symptoms persist. Review of Systems Constitutional: Negative for activity [...] tenderness, breast redness, breast discharge and lump(s). Objective Physical Exam Vitals and nursing note reviewed. Exam conducted with a survey compiler present. Constitutional: Appearance: She is well-developed. HENT: Head: Normocephalic. Eyes: General: No scleral icterus. Cardiovascular: Rate and Rhythm: Normal rate and regular rhythm. Pulmonary: Breath sounds: Normal breath sounds. Chest: Breasts: Breasts are symmetrical. Right: No mass or skin change. Left: No mass or skin change. Abdominal: Palpations: Abdomen is soft. Tenderness: There is no abdominal tenderness. Genitourinary: Rectum normal, vagina normal and normal vulva. Right labia: normal. Left Labia: normal. Right adnexa: normal. Left adnexa: normal. Cervix is absent. Cervix: Surgically Absent. Uterus is Surgically absent. Rectum: No external hemorrhoid. Skin: General: Skin is warm and dry. Neurological: Mental Status: She is alert and oriented to person, place, and time. Gait: Gait normal. Psychiatric: Behavior: Behavior normal. Judgment: Judgment normal. Assessment/Plan Diagnoses and all orders for this visit: Well woman exam (Primary) Continue present management. Pap smear obtained. If normal recommend Q 5 years. Mammogram to be done in May. Continue self-breast exams. Vaginal atrophy Menopausal symptoms Discussed HRT at length. Estradiol patch twice weekly sent. She will return in 3 months for symptomcheck. Bloating Reviewed imaging with patient. No gynecological etiology. She will follow up with primary care p.r.n.. ISTICAL DEVELOPER documented in this encounter Miscellaneous Notes * Addendum Note - Baljinder Williamson LPN - 05/18/2021 10:15 AM CSTAddended by: BALJINDER WILLIAMSON on: 05/18/2021 11:53 AM Modules accepted: Orders ISTICAL DEVELOPER documented in this encounter Plan of Treatment Not on file documented as of this encounter Results * Pap and High Risk HPV, reflex to Genotyping (05/18/2021 10:53 AM STATISTICAL DEVELOPER) Thin prep (Pap test) 05/18/2021 10:53 AM STATISTICAL DEVELOPER 05/21/2021 10:53 AM STATISTICAL DEVELOPER Narrative PATHOLOGY [facility] - 05/24/2021 11:29 AM STATISTICAL DEVELOPER [facility] Department of Pathology [address] [place] [address] Final Report with Addendum Note to Patients: [...] and explain the details. Patient Name: ??OBI ELLISChloe Address: ??[address], ?? [place], [place] ??[address] Gender: ??F : ??1965 (Age: 55) Service: ??Laboratory Location: ?? Hospital #: ??[id number] Patient Type: ??[facility] SPECIMEN Taken: ??05/18/2021 Received: ??05/21/2021 Accessioned:: ??05/22/2021 Reported: ??05/24/2021 Physician(s): Praveen Marie M.D. [facility] Diagnosis: Source of Specimen: ? SCREENING [...] determined by the Surgical Pathology Department at [facility] as part of an ongoing quality process engineer program and in compliance with federally [...] characteristics determined by the Surgical Pathology Department [facility]. ??It has not been cleared or approved by the U. S. Food and Drug Administration. Praveen Marie MD LAB CYTOLOGY ORDERABLES Final Result PATHOLOGY [facility] documented in this encounter Visit Diagnoses Diagnosis Well woman exam- Primary Routine general medical examination at a health care facility Vaginal atrophy Postmenopausal atrophic vaginitis Menopausal symptoms Symptomatic menopausal or female climacteric states Bloating Flatulence, eructation, and gas pain Well woman exam Routine general medical examination at a health care facility documented in this encounter Discontinued Medications Medication Sig Discontinue Reason Start Date End Da te estradioL (VIVELLE-DOT) 0.05 mg/[address] 1 patch on the skin once a week Alternate therapy 05/18/2021 05/18/2021 documented as of this encounter Additional Health Concerns Infection Onset Date Last Indicated Resolved Time COVID: Recovered Comment:Added based on recent COVID infection. 04/23/2021 04/27/2021 08/21/2021 3:07 AM C DT documented as of this encounter Care Teams Strategic Sourcing Specialist Relationship Specialty Start Date End Date Bouchra Vickers MD [address] [address] PCP - General 01/18/19 documented as of this encounter
--- OUTSIDE RECORDS SUMMARY | 2024-04-02 18:39 | XMS_ITS | Encounter Summary ---
Author Organization [facility] Healthcare Address [address] [place] [address] Care Team Providers Care Division Human Resources Manager Name Role Phone Bouchra Vickers MD Primary Care Provider [phone] Sultan Elvin Mccartney MD Unavailable [phone] Donte Campuzano MD Unavailable [phone] Reason for Referral * Procedure (Routine) - Closed Specialty Diagnoses / Procedures Referred By Contac t Referred To Contact Procedures Pulmonary Function Test - Blessing Morris MD [address] [place] [address] Phone: tel: Referral ID Status Reason Start Date Expiration Date Visits Re quested Visits Authorized [id number] Closed 06/25/2023 07/24/2024 1 1 * Procedure (Routine) - Closed Specialty Diagnoses / Procedures Referred By Contac t Referred To Contact Procedures Pulmonary Function Test - Blessing Morris MD [address] [place] [address] Phone: tel: Referral ID Status Reason Start Date Expiration Date Visits Re quested Visits Authorized [id number] Closed 06/25/2023 07/24/2024 1 1 Encounter Details Date Type Department Care Team (Late st Contact Info) Description 06/25/2023 Orders Only [facility] Medical Group Pulmonology [address] [facility] [address] [place] [address] Blessing Morris MD [address] [place] [address] Social History Tobacco Use Types Packs/Day Years Used Date Smoking Tobacco: Never Personal Safety Answer Date Recorded Getting School Help Needed Not on file 05/22 Comments No Sex and Gender Information Value Date Recorded Sex Assigned at Not on file Legal Sex Female 10:19 AM GARNISHMENT SPECIALIST Gender Identity Not on file Sexual Orientation Not on file documented as of this encounter Plan of Treatment Not on file documented as of this encounter Procedures Procedure Name Priority Date/Time Associated Diagnosis Comments PULMONARY FUNCTION TEST (PFT) Routine 06/17/2023 4:49 PM CDT PULMONARY FUNCTION TEST (PFT) Routine 06/17/2023 3:29 PM CDT documented in this encounter Results * Pulmonary Function Test - (06/17/2023 4:49 PM CDT) Anatomical Region Laterality Modality PFT [facility] Provider PFT ORDERABLES Final Res ult * Pulmonary Function Test - (06/17/2023 3:29 PM CDT) Anatomical Region Laterality Modality PFT Historical Provider PFT ORDERABLES Final Res ult documented in this encounter Visit Diagnoses Not on filedocumented in this encounter Care Teams Division Human Resources Manager Relationship Specialty Start Date End Date Bouchra Vickers MD [address] [facility] [address] [place] [address] PCP - General 01/18/19 Sultan Elvin Mccartney MD [address] [facility] [address] [place] [address] Consulting Physician Cardiovascular Disease 05/22/22 Donte Campuzano MD [address] [facility] [address] [place] [address] Consulting Physician Pulmonary Disease 05/22/22 documented as of this encounter
--- OUTSIDE RECORDS SUMMARY | 2024-04-02 18:39 | XMS_ITS | Encounter Summary ---
Author Organization [facility] Healthcare Address [address] [place] [address] Care Team Providers Care Software Performance Engineer Name Role Phone Bouchra Vickers MD Primary Care Provider [phone] Reason for Visit * Reason Onset Date Comments COVID-19 EVALUATION 04/13/2021 Encounter Details Date Type Department Care Team (Late st Contact Info) Description 04/13/2021 Telephone [facility] Occupatiuonal Health [address] [facility] Room [address] (Third Floor) [place] [address] Nel Hanson NP [address] [facility] [phone] [place], [place] [id number] COVID-19 EVALUATION Social History Tobacco Use Types Packs/Day Years Used Date Smoking Tobacco: Never Comments No Sex and Gender Information Value Date Recorded Sex Assigned at Not on file Legal Sex Female 10:19 AM CASE MANAGEMENT DIRECTOR Gender Identity Not on file Sexual Orientation Not on file documented as of this encounter Miscellaneous Notes * Telephone Encounter - Nel Hanson NP - 04/13/2021 8:27 AM CASE MANAGEMENT DIRECTOR Employee COVID-19 Screening 03/13/2020 03/09/2021 04/13/2021 Vaccine related call? - No No Email: [email or web address] ID# [id number] Are you an employee or student? Employee Employee Employee Employer: [employer] Employee Facility: [facility] Does your job primarily involve providing care for bone marrow transplant patients? 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 On-site On-site - Have you been tested for Covid-19 previously? No Yes - Have you ever had a positive COVID-19 swab or saliva test? - Yes - What was the date of your most recent positive test? - 03/13/2020 - Have you been vaccinated against Covid-19? No Yes - Who provided the vaccine: - [facility] - Have you had a known, specific Covid exposure within the last 14 days? 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 Yes Yes - Date symptoms started: 03/10/2020 03/08/2021 04/12/2021 Date last worked: 03/10/2020 03/08/2021 04/12/2021 Do you currently live with, or have ongoing contact with, someone known or suspected to have Covid-19? No No - Exposure Risk (See Exposure Guide): No known or low risk exposure No known or low risk exposure No known or low risk exposure Assessment: Symptomatic, unknown exposure Symptomatic, unknown exposure Symptomatic, unknown exposure Plan: (A) Stay home and test for symptoms (A) Stay home and test for symptoms (A) Stay home and test for symptoms Testing Site Location: [facility] Script A0 (Stay home and test) for symptomatic, exposed HCW, symptomatic, unexposed Non-HCW or Vaccinated Non-HCW Thank you for calling the Employee COVID-19 Call Center. This email contains the same information and recommendations discussed during your call. You should also forward this information to your residence supervisor as confirmation. Given your symptoms, you should not come to work and will be referred for combined COVID/Influenza testing. Or, if you have had a COVID infection in the past 3 months, you will be tested for influenza only. ??? If you are at work on site, you must leave work now. Notify your residence supervisor that you have been directed to do so by the Occupational Health Employee COVID- 19 Call Center. ??? Please go to the employee testing site as directed for your test. They should be expecting you;if there is any confusion, please call us at [phone]. ??? While you are awaiting testing and results, you must remain off work. You should isolate yourself at home, avoid contact with any household members as much as possible, and stay in your home without leaving except for medical care. ??? You should let your residence supervisor know that you will not be coming to work. Although we will emailyour residence supervisor to confirm this, it is still your responsibility to notify your residence supervisor as you would for any other work absence. We will notify you of your test results, which are usually available within 24- 48 hours. Your results will also post to your [facility] My Chart account ([email or web address]). Once yourresults are back, you will receive further instruction from Occupational Health. If you test positive for COVID-19, you must be cleared by Occupational Health (OH) before you can return to work. [facility] will notify you and your research development manager when you can return to work. Should your test result positive, OH will work with you to identify any close contacts you may have had at work. OH willthen alert your work contacts directly; you do not have to. Your residence supervisor should consult with [facility] if they have any questions and before any communication with coworkers about a positive test. [facility] will help ensure that coworkers potentially at risk are notified and given appropriate advice without unnecessary disclosure of personal health information. If you test negative for COVID-19, you may not return to work until you have been fever-free (temperature less than 100??F) for at least 24 hours and your other symptoms are improved. Occupational Health does not currently have the manpower to individually clear each employee with a negative test; once you are notified of a negative test result, you and your residence supervisor must decide when it is appropriate for you to return to work, using the guidance that will be send with your negative test notification. MANAGEMENT DIRECTOR documented in this encounter Plan of Treatment Not on file documented as of this encounter Results * (ABNORMAL) Influenza A/B and COVID-19 PCR Nasopharyngeal (04/13/2021 9:01 AM CASE MANAGEMENT DIRECTOR) COVID-19 RNA Detected(A) KEYSHA BURK Comment: Interpretive Data Synonyms for this test include: PCR and NAAT . ??Testing performed by the [facility] Molecular Infectious Disease Laboratory. The 2019-Novel Coronavirus Assay (COVID-19) Real Time RT-PCR assay [...] 04, 2020. Influenza A RNA Not Detected KEYSHA HARRISON Influenza B RNA Not Detected KEYSHA BURK Comment: Interpretive Data Testing performed by the [facility] Molecular Infectious Disease Laboratory. This test is performed using the mildred Influenza A/B Assay. This is a real-time RT-PCR test for the qualitative detection of nucleic acid from Influenza A and Influenza B. This assay has been reviewed by the FDA for Emergency Use Authorization (EUA). The performance characteristics have been verified by the [facility]. Results should be interpreted in combination with clinical context and a negative result does not rule out infection. ?? Interpretive data last revised 2020. First COVID-19 test? No KEYSHA HARRISON Employeed in healthcare? Yes KEYSHA HARRISON status? No KEYSHA BURK Group care resident? No KEYSHA BURK Hospitalized? No KEYSHA BURK Is patient in ICU? No [facility] Symptomatic as defined by CDC? Yes KEYSHA [facility] Nasopharyngeal 04/13/2021 9: 01 AM CASE MANAGEMENT DIRECTOR 04/13/2021 1:40 PM CASE MANAGEMENT DIRECTOR Narrative KEYSHA BURK - 04/13/2021 11:35 PM CASE MANAGEMENT DIRECTOR Patient is employed by/enrolled at:->[employer] Date of Symptom Onset->04/12/21 Reason for testing?->Symptomatic us Tiera Hankins MD LAB MICROBIOLOGY - GENERAL ORDERABLES Final Result KEYSHA [facility] Department [place] [address] documented in this encounter Visit Diagnoses Diagnosis Cough- Primary Low grade fever Cough Low grade fever documented in this encounter Additional Health Concerns Infection Onset Date Last Indicated Resolved Time COVID: Suspected 04/13/2021 04/13/2021 04/13/2021 11:35 PM CASE MANAGEMENT DIRECTOR documented as of this encounter Care Teams Software Performance Engineer Relationship Specialty Start Date End Date Bouchra Vickers MD [address] [address] PCP - General 01/18/19 documented as of this encounter
--- OUTSIDE RECORDS SUMMARY | 2024-04-02 18:39 | XMS_ITS | Encounter Summary ---
Author Organization [facility] Healthcare Address [address] [place] [address] Care Team Providers Care Epic Cadence Specialists Name Role Phone Bouchra Vickers MD Primary Care Provider [phone] Sultan Elvin Mccartney MD Unavailable [phone] Donte Campuzano MD Unavailable [phone] Encounter Details Date Type Department Care Team (Late st Contact Info) Description 07/02/2023 1:35 PM CDT Lab [facility] Lab [address] [place] [address] Pulmonary nodule Social History Tobacco Use Types Packs/Day Years Used Date Smoking Tobacco: Never Personal Safety Answer Date Recorded Getting School Help Needed Not on file 05/22 Comments No Sex and Gender Information Value Date Recorded Sex Assigned at Not on file Legal Sex Female 10:19 AM RISK MANAGEMENT SPECIALIST Gender Identity Not on file Sexual Orientation Not on file documented as of this encounter Plan of Treatment Not on file documented as of this encounter Procedures Procedure Name Priority Date/Time Associated Diagnosis Comments DIFFERENTIAL AUTO Routine 07/02/2023 2:0 7 PM CDT Pulmonary nodule CBC WITH AUTO DIFFERENTIAL Routine 07/02/2023 2:07 PM CDT Pulmonary nodule APTT Routine 07/02/2023 2:07 PM CDT Pulmonary nodule PROTIME-INR Routine 07/02/2023 2:07 PM CDT Pulmonary nodule documented in this encounter Results * Differential, auto (07/02/2023 2:07 PM CDT) Neutrophil abs 4.7 1.5 - 6.5 K/cumm Imm gran abs 0.0 0.0 - 0.1 K/cumm [facility] Lymphocyte abs 2.1 0.8 - 3.3 K/cumm [facility] Monocyte abs 0.5 0.2 - 0.8 K/cumm [facility] Eosinophil abs 0.3 0.0 - 0.5 K/cumm [facility] Basophil abs 0.1 0.0 - 0.1 K/cumm [facility] Neutrophil pct 61.0 % [facility] Comment: Interpretive Data Percent cell count reference ranges are not reported, since discordance with absolute values may lead to misinterpretation of CBC data. Current Interpretive Data was last revised on 2017. Imm gran pct 0.3 % [facility] Comment: Interpretive Data Percent cell count reference ranges are not reported, since discordance with absolute values may lead to misinterpretation of CBC data. Current Interpretive Data was last revised on 2017. Lymphocyte pct 27.8 % [facility] Comment: Interpretive Data Percent cell count reference ranges are not reported, since discordance with absolute values may lead to misinterpretation of CBC data. Current Interpretive Data was last revised on 2017. Monocyte pct 6.3 % [facility] Comment: Interpretive Data Percent cell count reference ranges are not reported, since discordance with absolute values may lead to misinterpretation of CBC data. Current Interpretive Data was last revised on 2017. Eosinophil pct 3.4 % [facility] Comment: Interpretive Data Percent cell count reference ranges are not reported, since discordance with absolute values may lead to misinterpretation of CBC data. Current Interpretive Data was last revised on 2017. Basophil pct 1.2 % [facility] Comment: Interpretive Data Percent cell count reference ranges are not reported, since discordance with absolute values may lead to misinterpretation of CBC data. Current Interpretive Data was last revised on 2017. Blood 07/02/2023 2:07 PM CDT 07/02/2023 2:29 PM CDT Donte Campuzano MD LAB BLOOD ORDERABLES Kathy l Result Performing Organization Address [facility] de Phone Number [address] [place] [address] * CBC with auto differential (07/02/2023 2:07 PM CDT) Pathologist [facility] WBC 7.7 3.8 - 9.9 K/cumm Hgb 13.0 11.9 - 15.5 g/dL [facility] Hct 39.1 35.6 - 45.5 % [facility] Plt 227 150 - 400 K/cumm [facility] MPV 10.2 9.1 - 12.3 fL [facility] RBC 4.38 3.90 - 5.20 M/cumm [facility] MCV 89.3 81.3 - 96.4 fL [facility] MCH 29.7 27.1 - 33.3 pg [facility] MCHC 33.2 32.3 - 35.7 g/dL [facility] RDW CV 12.6 11.1 - 14.9 % [facility] RDW SD 41.4 35.7 - 48.1 fL [facility] NRBC abs 0.00 0.00 - 0.01 K/cumm [facility] Blood 07/02/2023 2:07 PM CDT 07/02/2023 2:29 PM CDT Donte Campuzano MD LAB BLOOD ORDERABLES Kathy l Result Performing Organization Address [facility] de Phone Number [address] [place] [address] * Protime-INR (07/02/2023 2:07 PM CDT) Pathologist [facility] PT 12.1 12.0 - 14.6 sec INR 0.9 0.9 - 1.2 [facility] Comment: Ref Range High Interpretive data Oral anticoagulant therapeutic ranges: Venous thromboembolism prophylaxis or treatment: 2.0-3.0 CARDIOLOGY Standard range: 2.0-3.0 High-intensity range: 2.5-3.5 Refer to indication-specific guidelines for appropriate target ranges for prosthetic heart valve replacement. Current interpretive data was last revised on 2019. Blood 07/02/2023 2:07 PM CDT 07/02/2023 2:29 PM CDT Donte Campuzano MD LAB BLOOD ORDERABLES Kathy l Result Performing Organization Address [facility] Co de Phone Number KEYSHA [address] [address] * aPTT (07/02/2023 2:07 PM CDT) aPTT 27 22 - 37 sec Comment: Interpretive data aPTT test has not been evaluated for monitoring heparin therapy. The anti-Xa is the preferred test. Current interpretive data was last revised on 2019. Blood 07/02/2023 2:07 PM CDT 07/02/2023 2:29 PM CDT Donte Campuzano MD LAB BLOOD ORDERABLES Kathy l Result Performing Organization Address [facility] de Phone Number [address] [address] documented in this encounter Visit Diagnoses Diagnosis Pulmonary nodule Other diseases of lung, not elsewhere classified documented in this encounter Care Teams Epic Cadence Specialists Relationship Specialty Start Date End Date Bouchra Vickers MD [address] [address] PCP - General 01/18/19 Sultan Elvin Mccartney MD [address] [address] Consulting Physician Cardiovascular Disease 05/22/22 Donte Campuzano MD [address] [place] [address] Consulting Physician Pulmonary Disease 05/22/22 documented as of this encounter
--- OUTSIDE RECORDS SUMMARY | 2024-04-02 18:39 | XMS_ITS | Encounter Summary ---
Author Organization [facility] Healthcare Address [address] [place] [address] Care Team Providers Care Track Helper Name Role Phone Bouchra Vickers MD Primary Care Provider [phone] Sultan Elvin Mccartney MD Unavailable [phone] Donte Campuzano MD Unavailable [phone] Encounter Details Date Type Department Care Team (Latest Contact Info) Description 05/28/2023 11:30 AM CATH LAB TECHNOLOGIST - 05/28/2023 11:59 PM CATH LAB TECHNOLOGIST Hospital Encounter [facility] [employer] [address] [facility] 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 24 patch 3 05/18/2021 4 guaiFENesin ER (MUCINEX) 600 mg 12 hr tablet Take 1 tablet (600 mg total) by mouth 2 (two) times a day for 7 days 14 tablet 05/22/2022 4 ipratropium (ATROVENT HFA) 17 mcg/actuation inhaler Inhale 0.129 g (2 puffs total) 4 (four) times a day 12.9 g 3 05/28/2022 4 omeprazole (PriLOSEC) 20 mg capsule Take 1 capsule (20 mg total) by mouth daily 30 capsule 11 06/12/2022 4 predniSONE (DELTASONE) 10 mg tablet prednisone 10 mg tablet 4 documented as of this encounter Discharge Disposition Disposition Code Departure Means Destination Discharge to home or self care documented in this encounter Plan of Treatment Not on file documented as of this encounter Procedures Procedure Name Priority Date/Time Associated Diagnosis Comments CT BODY OUTSIDE REFERENCE Routine 05/28/2023 11:30 AM CATH LAB TECHNOLOGIST documented in this encounter Results * CT Body Outside Reference (05/28/2023 11:30 AM CATH LAB TECHNOLOGIST) Narrative [email or web address] - 05/30/2023 1:47 PM CATH LAB TECHNOLOGIST This order has been auto-finalized and does not contain a result. us Provider Transcribed Order IMG CT PROCEDURES Fin al Result Performing Organization Address City/State/[facility] Co de Phone Number RAD[email or web address] documented in this encounter Visit Diagnoses Not on filedocumented in this encounter Care Teams Track Helper Relationship Specialty Start Date End Date Bouchra Vickers MD [address] [address] PCP - General 01/18/19 Sultan Elvin Mccartney MD [address] [address] Consulting Physician Cardiovascular Disease 05/22/22 Donte Campuzano MD [address] [place] [id number] Consulting Physician Pulmonary Disease 05/22/22 documented as of this encounter
--- OUTSIDE RECORDS SUMMARY | 2024-04-02 18:39 | XMS_ITS | Encounter Summary ---
Author Organization [facility] Address [address] [facility] [address] [place] [address] Care Team Providers Care Military Administrative Technician Name Role Phone Bouchra Vickers MD Primary Care Provider [phone] Reason for Referral * Diagnostic Imaging (Routine) - Closed Specialty Diagnoses / Procedures Referred By Martinac t Referred To Contact Diagnoses Encounter for screening mammogram for malignant neoplasm of breast Procedures Screening Mammogram Bilateral W Richi Screening Mammogram 2D Bilateral Praveen Marie MD [facility] [place] [address] Phone: tel: fax: [address] [address] Referral ID Status Reason Start Date Expiration Date Visits Re quested Visits Authorized [id number] Closed 04/06/2021 05/06/2022 1 1 T RELATIONS REPRESENTATIVE * Diagnostic Imaging (Routine) - Closed Specialty Diagnoses / Procedures Referred By Contac t Referred To Contact Diagnoses Bloating Procedures US Pelvis W Endovaginal Praveen Marie MD [address] [place] [address] Phone: tel: fax: [address] [address] Referral ID Status Reason Start Date Expiration Date Visits Re quested Visits Authorized [id number] Closed 04/06/2021 05/06/2022 1 1 T RELATIONS REPRESENTATIVE Reason for Visit * Reason Comments Hot Flashes x 18 months, has tri ed OTC estroven and black kohosh without help Pelvic Pain off and on x 6 month s, bloating Encounter Details Date Type Department Care Team (Late st Contact Info) Description 04/06/2021 10:45 AM GUEST RELATIONS REPRESENTATIVE Office Visit [facility] Obstetrical Gynecology [address] [facility] [address] [place] [address] [place] [address] [place] [address] [address] [place] [address] Menopausal symptoms (Primary Dx); Bloating; Encounter for screening mammogram for malignant neoplasm of breast Social History Tobacco Use Types Packs/Day Years Used Date Smoking Tobacco: Never Comments No Sex and Gender Information Value Date Recorded Sex Assigned at Not on file Legal Sex Female 10:19 AM GUEST RELATIONS REPRESENTATIVE Gender Identity Not on file Sexual Orientation Not on file documented as of this encounter Last Filed Vital Signs Vital Sign Reading Time Taken Comments Blood Pressure 114/78 04/06/2021 10:44 AM GUEST RELATIONS REPRESENTATIVE Pulse - - Temperature - - Respiratory Rate - - Oxygen Saturation - - Inhaled Oxygen Concentration - - Weight 50.6 kg (111 lb 9.6 oz) 04/06/2021 10:44 AM GUEST RELATIONS REPRESENTATIVE Height 160 cm (5' 3 ) 04/06/2021 10:44 AM GUEST RELATIONS REPRESENTATIVE Body Mass Index 19.77 04/06/2021 10:44 AM GUEST RELATIONS REPRESENTATIVE documented in this encounter Progress Notes * Praveen Marie MD - 04/06/2021 10:45 AM CST Images from the original note were not included. Subjective/Objective Patient ID: Obi Gama is a 55 y.o. female. Chief Complaint Hot Flashes (x 18 months, has tried OTC estroven and black kohosh without help) and Pelvic Pain (off and on x 6 months, bloating) HPI: 55-year-old 2, para 2 who presents to the office with complaints of menopausal symptoms andpelvic pain/bloating. Previously on HRT until 2017, she discontinued medication on her own and states she has tried coag-ese-ffypxch products with minimal improvement. This would include Estroven and black cohosh. Would like to discuss other options. Also states pelvic pain for the last 6 months. Episodic. Lower mid abdomen. No nausea vomiting, no fever chills, no GI or issues. She does have a history of IBS which is controlled using MiraLax. Also associated deep dyspareunia. Review of Systems Constitutional: Negative for appetite change, chills, diaphoresis, fatigue and fever. Eyes: Negative for visual disturbance. Respiratory: Negative for cough and shortness of breath. Cardiovascular: Negative for chest pain. Gastrointestinal: Negative for abdominal distention, abdominal pain, blood in stool, constipation, diarrhea, nausea and vomiting. Endocrine: Negative for polyuria. Genitourinary: Positive for pelvic pain. Negative for dyspareunia, dysuria, frequency, hematuria, urgency and vaginal discharge. Musculoskeletal: Negative for back pain. Skin: Negative for rash. Neurological: Negative for dizziness, syncope, light-headedness and headaches. Hot flashes Psychiatric/Behavioral: Negative for self-injury, sleep disturbance and suicidal ideas. The patientis not nervous/anxious. Breast: Negative for tenderness, breast discharge and lump(s). Physical Exam Vitals and nursing note reviewed. Constitutional: Appearance: Normal appearance. HENT: Head: Normocephalic. Skin: General: Skin is warm and dry. Neurological: General: No focal deficit present. Mental Status: She is alert and oriented to person, place, and time. Psychiatric: Mood and Affect: Mood normal. Judgment: Judgment normal. Assessment/Plan Diagnoses and all orders for this visit: Menopausal symptoms (N95.1) (Primary) Discussed at length. Discussed indications for HRT. Would recommend she try amberen for the next 4-6 weeks and then we can re-evaluate at a well-woman visit. If needed we can restart HRT. Risks and benefits discussed. She is agreeable. Bloating (R14.0) - US Pelvis W Endovaginal; Future Encounter for screening mammogram for malignant neoplasm of breast (Z12.31) - Screening Mammogram 2D Bilateral; Future *This note is dictated using [employer] voice recognition software, variances in spelling and vocabulary are possible and unintentional* T RELATIONS REPRESENTATIVE documented in this encounter Plan of Treatment Not on file documented as of this encounter Results * Screening Mammogram Bilateral [...] age 38, based on guidelines of the [employer] (ACR Practice Parameter for the Performance of Screening and Diagnostic Mammography) and [employer]. For women [...] IMG MAMMO PROCEDURES Fi nal Result * US Pelvis W Endovaginal (04/27/2021 10:20 AM GUEST RELATIONS REPRESENTATIVE) Anatomical Region Laterality Modality Pelvis N/A Ultrasound 04/27/2021 3:44 PM GUEST RELATIONS REPRESENTATIVE Narrative 04/27/2021 3:46 PM GUEST RELATIONS REPRESENTATIVE EXAM DESCRIPTION: ?? US PELVIS W ENDOVAGINAL [...] PM T: ??04/27/2021 3:46 PM Report ID: [id number] Reading Location: ??[id number] Procedure Note Chris Oliva MD - 04/27/2021 [...] Chris Oliva M.D. JA: FRANCISCO Report ID: [id number] Reading Location: [id number] us Praveen Marie MD IMG US PROCEDURES Final Result documented in this encounter Visit Diagnoses Diagnosis Menopausal symptoms- Primary Symptomatic menopausal or female climacteric states Bloating Flatulence, eructation, and gas pain Encounter for screening mammogram for malignant neoplasm of breast Bloating Flatulence, eructation, and gas pain Encounter for screening mammogram for malignant neoplasm of breast documented in this encounter Historical Medications * This list may reflect changes made after this encounter. 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
--- OUTSIDE RECORDS SUMMARY | 2024-04-02 18:39 | XMS_ITS | Encounter Summary ---
Author Organization [facility] Address [address] [place] [address] Care Team Providers Care Vocational Evaluator Name Role Phone Bouchra Vickers MD Primary Care Provider [phone] Sultan Elvin Mccartney MD Unavailable [phone] Donte Campuzano MD Unavailable [phone] Reason for Visit * Reason Comments Follow-up Encounter Details Date Type Department Care Team (Late st Contact Info) Description 05/30/2023 9:30 AM CARD HANGER Office Visit [facility] Pulmonology [address] [facility] [address] [place] [phone] [place] [address] [place] [address] Pulmonary nodule (Primary Dx); Centrilobular emphysema (HCC); Gastroesophageal reflux disease without esophagitis Social History Tobacco Use Types Packs/Day Years Used Date Smoking Tobacco: Never Personal Safety Answer Date Recorded Getting School Help Needed Not on file 05/22 Comments No Sex and Gender Information Value Date Recorded Sex Assigned at Not on file Legal Sex Female 10:19 AM CARD HANGER Gender Identity Not on file Sexual Orientation Not on file documented as of this encounter Last Filed Vital Signs Vital Sign Reading Time Taken Comments Blood Pressure 109/65 05/30/2023 9:27 AM CARD HANGER Pulse 75 05/30/2023 9:27 AM CARD HANGER Temperature 36.5 ??C (97.7 ??F) 05/30/2023 9:27 AM CS T Respiratory Rate 18 05/30/2023 9:27 AM CARD HANGER Oxygen Saturation 97% 05/30/2023 9:27 AM CARD HANGER Inhaled Oxygen Concentration - - Weight 50.5 kg (111 lb 6.4 oz) 05/30/2023 9:27 A M CARD HANGER Height - - Body Mass Index 19.73 11/29/2022 10:22 AM CDT documented in this encounter Ordered Prescriptions Prescription Sig Dispense Quantity Refills Last Filled Start Date End Date guaiFENesin ER (MUCINEX) 600 mg 12 hr tabletIndications: Centrilobular emphysema (HCC) Take 1 tablet (600 mg total) by mouth 2 (two) times a day 60 tablet 11 05/30/2023 06/17/2023 documented in this encounter Progress Notes * Donte Campuzano MD - 05/30/2023 9:30 AM CST Images from the original note were not included. Progress Note Patient: Obi Gama ( - 1965) is a 57 y.o. female. Visit Date: 05/30/2023 History of Present Illness: The patient is a pleasant 57-year-old female with a history of COPD secondary to secondhand smoke exposure, pulmonary nodules and GERD that returns for follow- up. She did have a chest CT performed [address] [facility] and there was a new 2.7 x 1.2 x 0.7 cm pleural-based opacity which wasnew compared to a prior study from late October 2022. The interpreting radiologist thought the area was consistent with atelectasis peripheral to a mucus impacted bronchus. She did bring the disc withher for me to review. She states that she is coughing more and does occasionally bring up some phlegm. She never smoked but both of her parents smoked and her smoked for the 1st 10 years of her marriage so she was exposed to secondhand smoke for 40 years. She continues on a proton pump inhibitor and this is controlling her reflux. She drinks approximately 3 glasses of fluid a day. She continues on breztri 2 puffs b.i.d. and albuterol MDI and she is using the albuterol about twice per day. She does occasionally cough up some phlegm. Past Medical History: Past Medical History: Diagnosis [...] mg tablet 3 (three) times a day yohxagpzdj-ybvhhdzd-jkqzrctsod (Breztri Aerosphere) 160-9-4.8 mcg/actuation HFA aerosol inhaler Inhale 2 puffs 2 (two) times a day 10.7 g 11 cyanocobalamin (Vitamin B-12) 1,000 mcg/mL injection cyanocobalamin (vit B-12) 1,000 mcg/mL injection solution ADMINISTER 1 ML UNDER THE SKIN EVERY MONTH FLUoxetine (PROzac) 60 mg tablet fluoxetine 60 mg tablet ipratropium (ATROVENT HFA) 17 mcg/actuation inhaler Inhale [...] 10 mg tablet prednisone 10 mg tablet estradioL (VIVELLE-DOT) 0.05 mg/[address] 1 patch on the skin once a week Apply patch twice weekly. 24 patch 3 guaiFENesin ER (MUCINEX) 600 mg 12 hr tablet Take 1 tablet (600 mg total) by mouth 2 (two) times a day for 7 days 14 tablet 0 guaiFENesin ER (MUCINEX) 600 mg 12 hr tablet Take 1 tablet (600 mg total) by mouth 2 (two) times a day 60 tablet 11 No current facility-administered medications for this visit. [...] change, fever and unexpected weight change. HENT: Positive for sore throat. Negative for rhinorrhea, sinus pressure, sinus pain and tinnitus. Respiratory: Positive for cough, shortness of breath and wheezing. Cardiovascular: Negative for chest pain, palpitations and leg swelling. Gastrointestinal: Negative for abdominal pain, diarrhea and nausea. Genitourinary: Negative for hematuria. Musculoskeletal: Positive for arthralgias and back pain. Negative for myalgias. Skin: Negative for color change. Allergic/Immunologic: Negative for environmental allergies and food allergies. Neurological: Negative for dizziness and light-headedness. Physical Exam: Vitals: 05/30/23 0927 BP: 109/65 BP Location: Left arm Patient Position: Sitting Pulse: 75 Resp: 18 Temp: 36.5 ??C (97.7 ??F) SpO2: 97% Weight: 50.5 kg (111 lb 6.4 oz) Physical Exam Constitutional: Appearance: She is well-developed. [...] Diagnoses and all orders for this visit: Pulmonary nodule (Primary) Assessment & Plan: The original 6 mm right lower lobe nodule is unchanged but there was a new area measuring 2.7 x 1.2x 0.7 cm in the anterior basilar right lower lobe which was thought to be peripheral to a mucus impacted bronchus. I will have the chest CT loaded in our system and then contact her early next week regarding recommendations. She will follow-up with me in 3 months. Centrilobular emphysema (HCC) Assessment & Plan: She states that she is requiring her albuterol inhaler more often. She will continue with breztri 2puffs b.i.d. and I will check full PFTs at [facility] and start Mucinex 600 mg p.o. b.i.d. to help thin the secretions I did recommend she increase her fluid intake. Orders: - Pulmonary Function Test -External; Future - guaiFENesin ER (MUCINEX) 600 mg 12 hr tablet; Take 1 tablet (600 mg total) by mouth 2 (two) timesa day Gastroesophageal reflux disease without esophagitis Assessment & Plan: She continues on a proton pump inhibitor that is controlling the reflux. 01 June [id number] I had the chest CT from [facility] loaded into our PAC system and I have reviewed the chest CT. I am concerned about this abnormality in the right lower lobe being a possible bronchogenic malignancy. I have contacted the patient and have recommended proceeding with a PET scan. Because of herinsurance, she would like to have the PET scan performed at [facility] and she will call us b [facility] tomorrow to tell us where to have the study performed. Rendering Provider & Department: Donte Campuzano MD HANGER HANGER documented in this encounter Miscellaneous Notes * Assessment & Plan Note - Donte Campuzano MD - 05/30/2023 10:16 AM CARD HANGER Associated Problem(s): Centrilobular emphysema (HCC) She states that she is requiring her albuterol inhaler more often. She will continue with breztri 2puffs b.i.d. and I will check full PFTs at [facility] and start Mucinex 600 mg p.o. b.i.d. to help thin the secretions I did recommend she increase her fluid intake. HANGER * Assessment & Plan Note - Donte Campuzano MD - 05/30/2023 10:16 AM CARD HANGER Associated Problem(s): Gastroesophageal reflux disease without esophagitis She continues on a proton pump inhibitor that is controlling the reflux. HANGER * Assessment & Plan Note - Donte Campuzano MD - 05/30/2023 10:15 AM CARD HANGER Associated Problem(s): Pulmonary nodule The original 6 mm right lower lobe nodule is unchanged but there was a new area measuring 2.7 x 1.2x 0.7 cm in the anterior basilar right lower lobe which was thought to be peripheral to a mucus impacted bronchus. I will have the chest CT loaded in our system and then contact her early next week regarding recommendations. She will follow-up with me in 3 months. HANGER * Addendum Note - Christiana Hu - 05/30/2023 9:30 AM CSTAddended by: CHRISTIANA HU on: 06/03/2023 11:17 AM Modules accepted: Orders HANGER documented in this encounter Plan of Treatment Not on file documented as of this encounter Visit Diagnoses Diagnosis Pulmonary nodule- Primary Other diseases of lung, not elsewhere classified Centrilobular emphysema (HCC) Gastroesophageal reflux disease without esophagitis Esophageal reflux documented in this encounter Care Teams Vocational Evaluator Relationship Specialty Start Date End Date Bouchra Vickers MD [address] [place] [address] PCP - General 01/18/19 Sultan Elvin Mccartney MD [address] [facility] [address] [address] Consulting Physician Cardiovascular Disease 05/22/22 Donte Campuzano MD [address] [facility] [address] [place] [address] Consulting Physician Pulmonary Disease 05/22/22 documented as of this encounter
--- OUTSIDE RECORDS SUMMARY | 2024-04-02 18:39 | XMS_ITS | Encounter Summary ---
Author Organization [facility] Address [address] [place] [address] Care Team Providers Care Consolidation Accountant Name Role Phone Bouchra Vickers MD Primary Care Provider [phone] Sultan Elvin Mccartney MD Unavailable [phone] Donte Campuzano MD Unavailable [phone] Reason for Referral * Diagnostic Imaging (Routine) - Closed Specialty Diagnoses / Procedures Referred By Contac t Referred To Contact Diagnoses Encounter for screening mammogram for malignant neoplasm of breast Procedures Screening Mammogram 2D Bilateral Praveen Marie MD [address] [place] [address] [address] [place] [address] Phone: tel: fax: External Order Referral ID Status Reason Start Date Expiration Date Visits Re quested Visits Authorized [id number] Closed 06/17/2023 07/16/2024 1 1 Reason for Visit * Reason Comments Well Women Visit No fmhx breast cance rPt was on Estradiol patch, states she experienced skin irritation. Would like to discuss an oral form, has not used patches in several months due to skin issues. Encounter Details Date Type Department Care Team (Late st Contact Info) Description 06/17/2023 3:30 PM CDT Office Visit [facility] Obstetrical Gynecology [address] [facility] [address] [place] [phone] Praveen Marie MD [address] [place] [address] [address] [place] [address] Well woman exam (Primary Dx); Encounter for screening mammogram for malignant neoplasm of breast; Menopausal symptoms; Vaginal atrophy Social History Tobacco Use Types Packs/Day Years Used Date Smoking Tobacco: Never Personal Safety Answer Date Recorded Getting School Help Needed Not on file 05/22 Comments No Sex and Gender Information Value Date Recorded Sex Assigned at Not on file Legal Sex Female 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 Gender Identity Not on file Sexual Orientation Not on file documented as of this encounter Last Filed Vital Signs Vital Sign Reading Time Taken Comments Blood Pressure 102/68 06/17/2023 3:40 PM CDT Pulse - - Temperature - - Respiratory Rate - - Oxygen Saturation - - Inhaled Oxygen Concentration - - Weight 50.3 kg (111 lb) 06/17/2023 3:40 PM CDT Height 160 cm (5' 2.99 ) 06/17/2023 3:40 PM CDT Body Mass Index 19.67 06/17/2023 3:40 PM CDT documented in this encounter Ordered Prescriptions Prescription Sig Dispense Quantity Refills Last Filled Start Date End Date estradioL (ESTRACE) 0.5 mg tabletIndications: Menopausal symptoms Take 1 tablet (0.5 mg total) by mouth daily 30 tablet 11 06/17/2023 06/16/2024 documented in this encounter Progress Notes * Praveen Marie MD - 06/17/2023 3:30 PM CDT Subjective Patient ID: Obi Gama is a 57 y.o. female. Well Women Visit (No fmhx breast cancer/Pt was on Estradiol patch, states she experienced skin irritation. Would like to discuss an oral form, has not used patches in several months due to skin issues. ) Last pap:05/18/21 NILM HPV - Mammogram:06/21/21 B1 Colonoscopy:2019 per pt HPI 57-year-old 2, para 2 who presents for well-woman visit. Doing well. Postmenopausal, states increased vasomotor symptoms primarily hot flashes. Previously on patch however has allergic reaction to the adhesive. Unable to wear. Would like to discuss oral estrogen. Doing self-breast exams. No breast issues. Mammogram is due. Colonoscopy up-to-date. Review of Systems Constitutional: Negative for activity [...] nursing note reviewed. Exam conducted with a oracle fusion middleware developer present. Constitutional: Appearance: She is well-developed. HENT: Head: Normocephalic. Eyes: General: No scleral icterus. Cardiovascular: Rate and Rhythm: Normal rate and regular rhythm. Pulmonary: Breath sounds: Normal breath sounds. Chest: Breasts: Breasts are symmetrical. Right: No mass or skin change. Left: No mass or skin change. Abdominal: Palpations: Abdomen is soft. Tenderness: There is no abdominal tenderness. Genitourinary: Rectum: No external hemorrhoid. Genitourinary Comments: Genitourinary Comments: Vulva: No vulvar lesions, no masses Urethra: Normal: Vagina: Normal mucosa, no visible or palpable lesions. Moderate vaginal atrophy Cervix: Absent Uterus: Absent Adnexa: Not enlarged or tender. Rectal exam negative Skin: General: Skin is warm and dry. Neurological: Mental Status: She is alert and oriented to person, place, and time. Gait: Gait normal. Psychiatric: Behavior: Behavior normal. Judgment: Judgment normal. Assessment/Plan Diagnoses and all orders for this visit: Well woman exam (Primary) Continue present management. No longer requires Pap smears. Mammogram order provided. Continue self-breast exams. Continue vitamin-D supplementation. Encounter for screening mammogram for malignant neoplasm of breast - Screening Mammogram 2D Bilateral; Future Menopausal symptoms - estradioL (ESTRACE) 0.5 mg tablet; Take 1 tablet (0.5 mg total) by mouth daily Risks and benefits discussed. All questions answered. Vaginal atrophy Chronic condition, asymptomatic. documented in this encounter Plan of Treatment Scheduled Orders Name Type Priority Associated Diagnoses Orde r Schedule Screening Mammogram 2D Bilateral Imaging Schedule Routine, Read Routine (OP Routine) Encounter for screening mammogram for malignant neoplasm of breast 1 Occurrences starting 06/17/2023 until 08/16/2024 documented as of this encounter Visit Diagnoses Diagnosis Well woman exam- Primary Routine general medical examination at a health care facility Encounter for screening mammogram for malignant neoplasm of breast Menopausal symptoms Symptomatic menopausal or female climacteric states Vaginal atrophy Postmenopausal atrophic vaginitis documented in this encounter Discontinued Medications Medication Sig Discontinue Reason Start Date End Da te estradioL (VIVELLE-DOT) 0.05 mg/24 hrIndications:Menopaus al symptoms Place 1 patch on the skin once a week Apply patch twice weekly. Therapy completed 05/18/2021 06/17/2023 baclofen (LIORESAL) 10 mg tablet 3 (three) times a day Therapy completed 06/17/19 guaiFENesin ER (MUCINEX) 600 mg 12 hr tablet Take 1 tablet (600 mg total) by mouth 2 (two) times a day for 7 days Therapy completed 05/22/2022 06/17/2023 guaiFENesin ER (MUCINEX) 600 mg 12 hr tabletIndications:Cent rilobular emphysema (HCC) Take 1 tablet (600 mg total) by mouth 2 (two) times a day Therapy completed 05/30/2023 06/17/2023 ipratropium (ATROVENT HFA) 17 mcg/actuation inhaler Inhale 0.129 g (2 puffs total) 4 (four) times a day Therapy completed 05/28/2022 06/17/2023 predniSONE (DELTASONE) 10 mg tablet prednisone 10 mg tablet Therapy completed 06/17/2023 documented as of this encounter Care Teams Consolidation Accountant Relationship Specialty Start Date End Date Bouchra Vickers MD [address] [address] PCP - General 01/18/19 Sultan Elvin Mccartney MD [address] [facility] [address] [address] Consulting Physician Cardiovascular Disease 05/22/22 Donte Campuzano MD [address] [facility] [place] [address] Consulting Physician Pulmonary Disease 05/22/22 documented as of this encounter
--- OUTSIDE RECORDS SUMMARY | 2024-04-02 18:39 | XMS_ITS | Encounter Summary ---
Author Organization [facility] Healthcare Address [address] [place] [address] Care Team Providers Care Circus Hand Name Role Phone Bouchra Vickers MD Primary Care Provider [phone] Reason for Visit * Reason Onset Date Comments COVID-19 EVALUATION 03/09/2021 Encounter Details Date Type Department Care Team (Late st Contact Info) Description 03/09/2021 Telephone [facility] Occupatiuonal Health [address] [place] [address] Room [facility] (Third Floor) [place] [address] Lyla Arthur COVID-19 EVALUATION Social History Tobacco Use Types Packs/Day Years Used Date Smoking Tobacco: Never Comments Unknown Sex and Gender Information Value Date Recorded Sex Assigned at Not on file Legal Sex Female 10:19 AM EXECUTIVE STAFF ASSISTANT Gender Identity Not on file Sexual Orientation Not on file documented as of this encounter Miscellaneous Notes * Telephone Encounter - Lyla Arthur - 03/09/2021 8:09 AM EXECUTIVE STAFF ASSISTANT Employee COVID-19 Screening 03/13/2020 03/09/2021 Vaccine related call? - No Email: [email or web address] ID# [id number] Are you an employee or student? Employee Employee Employer: [employer] Employee Facility: [facility] Does your job primarily involve providing care for bone marrow transplant patients? 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 On-site On-site Have you been tested for Covid-19 previously? No Yes Have you ever had a positive COVID-19 swab or saliva test? - Yes What was the date of your most recent positive test? - 03/13/2020 Have you been vaccinated against Covid-19? No Yes Who provided the vaccine: - [facility] Have you had a known, specific Covid exposure within the last 14 days? 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 Yes Yes Date symptoms started: 03/10/2020 03/08/2021 Date last worked: 03/10/2020 03/08/2021 Do you currently live with, or have ongoing contact with, someone known or suspected to have Covid-19? No No Exposure Risk (See Exposure Guide): No known or low risk exposure No known or low risk exposure Assessment: Symptomatic, unknown exposure Symptomatic, unknown exposure Plan: (A) Stay home and test for symptoms (A) Stay home and test for symptoms Testing Site Location: [facility] A0 (Stay home and test) for symptomatic, exposed HCW, symptomatic, unexposed Non-HCW or Vaccinated Non-HCW Given your symptoms, you should not come to work and will be referred for combined COVID/Influenza testing. If you have had a COVID infection in the past 4 months, you will be tested for influenza only. ??? Please go to the employee testing site at [facility] ??? While you are awaiting testing and results, you must remain off work. ??? While waiting for results, home quarantine guidance still applies. You should isolate yourself at home, avoid contact with any household members as much as possible, and stay in your home withoutleaving except for medical care. If your symptoms worsen, please call back or call 911 - let your providers, ER or EMS know that you are being tested for COVID-19. ??? Once your results are back, you will receive further instruction from Occupational Health. Don't return to work until you hear from [facility]. Occupational Health will notify you and your manager country when you can return to work. ??? Should your test result positive, [facility] will work with you to identify any close contacts you may have had at work. [facility] will then alert your work contacts directly; you do not have to. Your fitting room supervisor should consult with [facility] if they have any questions and before any communication with coworkers about a positive test. [facility] will help ensure that coworkers potentially at risk are notified and given appropriate advice without unnecessary disclosure of personal health information. ??? We will send you an email with self-quarantine instructions (see [facility] Guidance for At-Home Isolation: Employees). ??? You must follow any additional isolation or quarantine instructions provided to you from federal, state or local public health authorities. ??? You should let your fitting room supervisor know that you will not be coming to work. Although the Call Center will email your fitting room supervisor to confirm that you have been instructed not to come to work, it is still your responsibility to notify your fitting room supervisor as you would for any other work absence. You should receive an email from the call center with these instructions. The email will come from [email or web address]; if you do not receive it, please check to see if your email linux server engineer has automatically routed it to [email or web address]. UTIVE STAFF ASSISTANT documented in this encounter Plan of Treatment Not on file documented as of this encounter Results * Influenza A/B and COVID-19 PCR Nasopharyngeal (03/09/2021 9:13 AM EXECUTIVE STAFF ASSISTANT) COVID-19 RNA Not Detected [facility] Comment: Interpretive Data Synonyms for this test include: PCR and NAAT . ??Testing performed by the [facility] Molecular Infectious Disease Laboratory. The 2019-Novel Coronavirus [...] 2020. Influenza A RNA Not Detected [facility] Influenza B RNA Not Detected [facility] Comment: Interpretive Data Testing performed by the [facility] Molecular Infectious Disease Laboratory. This test is performed using the mildred Influenza A/B Assay. This is a real-time RT-PCR test for the qualitative detection of nucleic acid from Influenza A and Influenza B. This assay has been reviewed by the FDA for Emergency Use Authorization (EUA). The performance characteristics have been verified by the [facility] Laboratory. Results should be interpreted in combination with clinical context and a negative result does not rule out infection. ?? Interpretive data last revised 2020. First COVID-19 test? No [facility] Employeed in healthcare? Yes [facility] status? Unknown [facility] Group care resident? No [facility] Hospitalized? No [facility] Is patient in ICU? No [facility] Symptomatic as defined by CDC? Yes [facility] Nasopharyngeal 03/09/2021 9: 13 AM EXECUTIVE STAFF ASSISTANT 03/09/2021 12:54 PM EXECUTIVE STAFF ASSISTANT Narrative [facility] - 03/10/2021 3:51 AM EXECUTIVE STAFF ASSISTANT Patient is employed by/enrolled at:->[employer] Date of Symptom Onset->03/08/21 us Tiera Hankins MD LAB MICROBIOLOGY - GENERAL ORDERABLES Final Result [facility] Department [place] [address] documented in this encounter Visit Diagnoses Diagnosis Nausea- Primary Nausea alone Fatigue, unspecified type Nausea Nausea alone Fatigue, unspecified type documented in this encounter Additional Health Concerns Infection Onset Date Last Indicated Resolved Time COVID: Suspected 03/09/2021 03/09/2021 03/10/2021 3:52 AM EXECUTIVE STAFF ASSISTANT documented as of this encounter Care Teams Circus Hand Relationship Specialty Start Date End Date Bouchra Vickers MD [address] [address] PCP - General 01/18/19 documented as of this encounter
--- OUTSIDE RECORDS SUMMARY | 2024-04-02 18:39 | XMS_ITS | Encounter Summary ---
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 Gender Identity Not on file Sexual Orientation Not on file documented as of this encounter Plan of Treatment Not on file documented as of this encounter Procedures Procedure Name Priority Date/Time Associated Diagnosis Comments TSH Routine 11/29/2020 11:52 AM CDT T4, FREE Routine 11/29/2020 11:52 AM CDT documented in this encounter Results * T4, free (11/29/2020 11:52 AM CDT) Free T4 0.94 0.90 - 1.70 ng/dL [facility] Blood 11/29/2020 11:5 2 AM CDT 11/29/2020 12:04 PM CDT us Bouchra Vickers MD LAB BLOOD ORDERABLES Final Resul t [facility] [address] [facility] [place] [address] * TSH (11/29/2020 11:52 AM CDT) Thyroid Stimulating Hormone 1.02 0.30 - 4.20 mcIUnit/mL [facility] Blood 11/29/2020 11:5 2 AM CDT 11/29/2020 12:04 PM CDT us Bouchra Vickers MD LAB BLOOD ORDERABLES Final Resul t [facility] [address] [place] [address] documented in this encounter Visit Diagnoses Not on filedocumented in this encounter Care Teams Field Sales Executive Relationship Specialty Start Date End Date Bouchra Vickers MD [address] [address] PCP - General 01/18/19 documented as of this encounter
--- OUTSIDE RECORDS SUMMARY | 2024-04-02 18:39 | XMS_ITS | Encounter Summary ---
Author Organization [facility] Medical [facility] Address [address] [place] [address] Care Team Providers Care Roads Superintendent Name Role Phone Bouchra Vickers MD Primary Care Provider [phone] Reason for Visit * Reason Onset Date Comments Covid-19 Home Monitoring 04/17/2021 enrollm ent past due Encounter Details Date Type Department Care Team (Late st Contact Info) Description 04/17/2021 Telephone [facility] Accountable Care Organization [address] [place] [address] Radha Wilkes LPN [address] [place] [address] [address] [place] [address] Covid-19 Home Monitoring (enrollment past due ) Social History Tobacco Use Types Packs/Day Years Used Date Smoking Tobacco: Never Comments No Sex and Gender Information Value Date Recorded Sex Assigned at Not on file 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 If we still consider them to have an active case of COVID-19 at that time, we willreevaluate them for home monitoring. AUDITOR documented in this encounter Plan of Treatment Not on file documented as of this encounter Visit Diagnoses Not on filedocumented in this encounter Additional Health Concerns Infection Onset Date Last Indicated Resolved Time COVID19 04/13/2021 04/13/2021 04/23/2021 3:05 AM SITE AUDITOR documented as of this encounter Care Teams Roads Superintendent Relationship Specialty Start Date End Date Bouchra Vickers MD [address] [address] PCP - General 01/18/19 documented as of this encounter
--- OUTSIDE RECORDS SUMMARY | 2024-04-02 18:39 | XMS_ITS | Encounter Summary ---
Author Organization [facility] Address [address] [place] [address] Care Team Providers Care Maintenance Mechanic Telephone Name Role Phone Bouchra Vickers MD Primary Care Provider [phone] Sultan Elvin Mccartney MD Unavailable [phone] Donte Campuzano MD Unavailable [phone] Reason for Visit * Reason Comments Follow-up Encounter Details Date Type Department Care Team (Late st Contact Info) Description 11/29/2022 10:15 AM CDT Office Visit [facility] Pulmonology [address] [facility] [facility] [address] [place] [address] Nlea Vale, CRM FUNCTIONAL ANALYST [address] [facility] [address] [place] [address] Pulmonary nodule (Primary Dx); Panlobular emphysema (HCC); Gastroesophageal reflux disease without esophagitis Social History Tobacco Use Types Packs/Day Years Used Date Smoking Tobacco: Never Comments No Sex and Gender Information Value Date Recorded Sex Assigned at Not on file 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 Gender Identity Not on file Sexual Orientation Not on file documented as of this encounter Last Filed Vital Signs Vital Sign Reading Time Taken Comments Blood Pressure 110/78 11/29/2022 10:22 AM CDT Pulse 67 11/29/2022 10:22 AM CDT Temperature 36.3 ??C (97.3 ??F) 11/29/2022 10:22 AM C DT Respiratory Rate 18 11/29/2022 10:22 AM CDT Oxygen Saturation 97% 11/29/2022 10:22 AM CDT Inhaled Oxygen Concentration - - Weight 51 kg (112 lb 6.4 oz) 11/29/2022 10:22 AM CDT Height 160 cm (5' 3 ) 11/29/2022 10:22 AM CDT Body Mass Index 19.91 11/29/2022 10:22 AM CDT documented in this encounter Progress Notes * Nela Vale, CRM FUNCTIONAL ANALYST - 11/29/2022 10:15 AM CDT Images from the original note were not included. Patient ID: Obi Gama is a 57 y.o. female. HPI. Patient is a 57 y.o. female returns for a follow-up of Chronic obstructive pulmonary disease, pulmonary nodule and GERD. The patient continues to use Breztri two inhalations twice a day. The patient states that is helping with her cough. The patient rarely needs her albuterol inhaler. The patient continues with a dry cough. She does occasionally wheeze. She does feel short of breath with activity. The patient did get a CT scan at [facility]. It did show the pulmonary nodules measuring up to 6 mm, probably benign. Low-dose CT of the chest is recommended 6-12 months. The patient continues to use Prilosec. Chief Complaint Patient presents with Follow-up Current Medications: Outpatient Encounter Medications as of 11/29/2022 Medication Sig Dispense Refill albuterol HFA (PROVENTIL HFA,VENTOLIN HFA,PROAIR HFA) 90 mcg/actuation inhaler Inhale 2 puffs every4 (four) hours as needed for wheezing 1 each 0 baclofen (LIORESAL) 10 mg tablet 3 (three) times a day awvdhmcavf-ydlcjknh-dorhufonwt (Breztri Aerosphere) 160-9-4.8 mcg/actuation HFA aerosol inhaler [...] day for 7 days 14 tablet 0 No facility-administered encounter medications on file as of 11/29/2022. Review of Systems Constitutional: Negative for fever. HENT: Negative for tinnitus. Eyes: Negative for visual disturbance. Respiratory: Positive for cough, shortness of breath and wheezing. Cardiovascular: Negative for chest pain. Gastrointestinal: Negative for diarrhea, nausea and vomiting. Skin: Negative for rash. Neurological: Negative for dizziness. BP 110/78 (BP Location: Right arm, Patient Position: Sitting) Pulse 67 Temp 36.3 ??C (97.3 ??F)(Tympanic) Resp 18 Ht 160 cm (5' 3 ) Wt 51 kg (112 lb 6.4 oz) SpO2 97% BMI 19.91 kg/m?? Physical Exam Constitutional: General: She is [...] Pulmonary nodule (Primary) Assessment & Plan: The patient will need another CT scan in one year which will be late December early November 2023. She does complete these at [facility]. I have given the patient an order to have the CT scan completed. The patient is also going to continuous pickling line pickler the disc from the CT scan at [facility] in May for [facility] to compare. Orders: - CT Chest WO Contrast; Future Panlobular emphysema (HCC) Assessment & Plan: Patient continue with Breztri two puffs twice a day. Patient continue with her albuterol inhaler asneeded up to 4 times a day for shortness of breath. Gastroesophageal reflux disease without esophagitis Assessment & Plan: The patient continues on Prilosec. Return in about 6 months (around 05/30/2023). Nela Vale NP Cosigned by Donte Campuzano MD at 11/29/2022 11:46 AM CDT documented in this encounter Miscellaneous Notes * Assessment & Plan Note - Nela Vale NP - 11/29/2022 10:58 AM CDT Associated Problem(s): Gastroesophageal reflux disease without esophagitis The patient continues on Prilosec. * Assessment & Plan Note - Nela Vale NP - 11/29/2022 10:58 AM CDT Associated Problem(s): Pulmonary nodule The patient will need another CT scan in one year which will be late December early November 2023. She does complete these at [facility]. I have given the patient an order to have the CT scan completed. The patient is also going to continuous pickling line pickler the disc from the CT scan at [facility] in May for [facility] to compare. * Assessment & Plan Note - Nela Vale NP - 11/29/2022 10:57 AM CDT Associated Problem(s): Panlobular emphysema (HCC) (Resolved 05/30/2023) Patient continue with Breztri two puffs twice a day. Patient continue with her albuterol inhaler asneeded up to 4 times a day for shortness of breath. documented in this encounter Plan of Treatment Not on file documented as of this encounter Visit Diagnoses Diagnosis Pulmonary nodule- Primary Other diseases of lung, not elsewhere classified Panlobular emphysema (HCC) Other emphysema Gastroesophageal reflux disease without esophagitis Esophageal reflux documented in this encounter Care Teams Maintenance Mechanic Telephone Relationship Specialty Start Date End Date Bouchra Vickers MD [address] [address] PCP - General 01/18/19 Sultan Elvin Mccartney MD [address] [facility] [address] [place] [address] [address] Consulting Physician Cardiovascular Disease 05/22/22 Donte Campuzano MD [address] [facility] [facility] [address] [place] [address] [place] [address] Consulting Physician Pulmonary Disease 05/22/22 documented as of this encounter
--- OUTSIDE RECORDS SUMMARY | 2024-04-02 18:39 | XMS_ITS | Encounter Summary ---
Author Organization [facility] Healthcare Address [address] [place] [address] Care Team Providers Care Rush Seater Name Role Phone Bouchra Vickers MD Primary Care Provider [phone] Sultan Elvin Mccartney MD Unavailable [phone] Donte Campuzano MD Unavailable [phone] Encounter Details Date Type Department Care Team (Late st Contact Info) Description 06/12/2022 3:[address] 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 Gender Identity Not on file Sexual Orientation Not on file documented as of this encounter Plan of Treatment Not on file documented as of this encounter Procedures Procedure Name Priority Date/Time Associated Diagnosis Comments IGE Routine 06/12/2022 4:14 PM CDT Panlobular emphysema (CMS/HCC) (HCC) documented in this encounter Results * (ABNORMAL) IgE (06/12/2022 4:14 PM CDT) IgE 287.3(H) 1.0 - 100.0 IUnits/mL KEY[facility] HONG Blood 06/12/2022 4:14 PM CDT 06/12/2022 5:10 PM CDT us Nela Vale COOLING SYSTEM OPERATOR LAB BLOOD ORDERABLES Fin al Result [facility] [address] [facility] [place] [address] documented in this encounter Visit Diagnoses Diagnosis Elevated IgE level- Primary Other and unspecified nonspecific immunological findings Panlobular emphysema (HCC) Other emphysema documented in this encounter Care Teams Rush Seater Relationship Specialty Start Date End Date Bouchra Vickers MD [address] [address] PCP - General 01/18/19 Sultan Elvin Mccartney MD [address] [facility] [address] [place] [address] [address] Consulting Physician Cardiovascular Disease 05/22/22 Donte Campuzano MD [address] [facility] [place] [address] [place] [address] Consulting Physician Pulmonary Disease 05/22/22 documented as of this encounter
--- OUTSIDE RECORDS SUMMARY | 2024-04-02 18:39 | XMS_ITS | Encounter Summary ---
Author Organization [facility] Healthcare Address [address] [place] [address] Care Team Providers Care Van Loader Name Role Phone Bouchra Vickers MD Primary Care Provider [phone] Sultan Elvin Mccartney MD Unavailable [phone] Donte Campuzano MD Unavailable [phone] Reason for Referral * MRI/CAT/PET Scan (Routine) - Closed Specialty Diagnoses / Procedures Referred By Fernando lewis Referred To Contact Radiology Diagnoses Pulmonary nodule Procedures CT Lung Needle Biopsy Right Donte Campuzano MD [facility] [place] [address] Phone: tel: fax: [address] [phone] Referral ID Status Reason Start Date Expiration Date Visits Re quested Visits Authorized [id number] Closed 07/02/2023 07/31/2024 1 1 Reason for Visit * MRI/CAT/PET Scan (Routine) - Closed Specialty Diagnoses / Procedures Referred By Fernando lewis Referred To Contact Radiology Diagnoses Pulmonary nodule Procedures CT Lung Needle Biopsy Right Donte Campuzano MD [address] [place] [address] Phone: tel: fax: [address] [phone] Referral ID Status Reason Start Date Expiration Date Visits Re quested Visits Authorized [id number] Closed 07/02/2023 07/31/2024 1 1 Encounter Details Date Type Department Care Team (Latest Contact Info) Description 07/10/2023 7:16 AM CDT - 07/10/2023 11:59 PM CDT Hospital Encounter [facility] [address] [place] [address] Rn, Mhb Rad Pulmonary nodule Discharge Disposition: Discharge to home or self care Social History Tobacco Use Types Packs/Day Years Used Date Smoking Tobacco: Never Personal Safety Answer Date Recorded Getting School Help Needed Not on file 05/22 Comments No Sex and Gender Information Value Date Recorded Sex Assigned at Not on file Legal Sex Female 10:19 AM [employer]W M[employer]ER Gender Identity Not on file Sexual Orientation Not on file documented as of this encounter Last Filed Vital Signs Vital Sign Reading Time Taken Comments Blood Pressure 112/81 07/10/2023 12:45 PM CDT Pulse 79 07/10/2023 12:45 PM CDT Temperature 36.1 ??C (97 ??F) 07/10/2023 10:00 AM CDT Respiratory Rate 16 07/10/2023 12:45 PM CDT Oxygen Saturation 97% 07/10/2023 12:45 PM CDT Inhaled Oxygen Concentration - - Weight - - Height - - Body Mass Index - - documented in this encounter Discharge Instructions * Discharge Instructions* Joanna Brooks RN - 07/10/2023 10:34 AM CDT You can remove dressing after 24 hours and replace with bandaid * Attachments The following attachments cannot be sent through Care Everywhere. * Needle Biopsy (Discharge Care) ([place]) documented in this encounter Medications at Time [...] total) by mouth early childhood 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 metoprolol XL (TOPROL-XL) 50 mg extended release tablet Take 1 tablet (50 mg total) by mouth daily nitroglycerin (NITROSTAT) 0.4 mg SL tablet For esophageal spasms only polyethylene glycol (MIRALAX) 17 gram/dose powder 04/24/2012 budesonide-glyc opyr-formoterol (Breztri Aerosphere) 160-9-4.8 mcg/actuation HFA aerosol inhaler Inhale 2 puffs 2 (two) times a day 10.7 g 07/26/2022 4 omeprazole (PriLOSEC) 20 mg capsule Take 1 capsule (20 mg total) by mouth daily 30 capsule 06/12/2022 4 documented as of this encounter Discharge Disposition Disposition Code Departure Means Destination Discharge to home or self care documented in this encounter Nursing Notes * Emeli cShuler, LACEY - 07/10/2023 10:18 AM CDT 07/09/2023 - Chart review performed, including medical history, reason for biopsy, imaging, medications, labs and vital trends. Reminder call to patient. 07/10/2023 - Discussed case with Dr Nam. Labs and vitals good, ok to proceed. Patient tolerated the procedure very well. Vitals stable before, during and after procedure. Patient reported no pain during procedure and was drowsy but arousable following second round of sedation.Patient awake, stable and at baseline prior to leaving CT. * Joanna Brooks RN - 07/10/2023 9:00 AM CDT Emeli joe from radiology called and stated pt was cleared to eat/drink. Pt resting comfortably. Vital signs stable and comparable with baseline. Dressing to back is unchanged and no drainage or crepitus noted. Pt given white soda.updated on plan of care documented in this encounter Miscellaneous Notes * Post-Procedure Note - Carlos Nam MD - 07/10/2023 9:00 AM CDT Radiology Brief Post Procedure Note Attending: Dr. Carlos Nam Sedation/Anesthesia: Mod Sedation Pre-procedure Diagnosis: right lower lobe lung nodule Post-procedure Diagnosis: Same Procedure Performed: CT NEEDLE BIOPSY LUNG RIGHT Procedure Findings: Successful CT guided core biopsies of a right lower lobe lung nodule. Small amount of associated hemorrhage. No pneumothorax Complications: None Estimated Blood Loss: < 30 ml Specimens: Core biopsies Condition: Stable Full report to follow. * Pre-Procedure Note - Carlos Nam MD - 07/10/2023 9:00 AM CDT Radiology Brief Pre-Procedure/Pre-Sedation Note History / Indication: The encounter diagnosis was Pulmonary nodule. Planned Procedure: CT NEEDLE BIOPSY LUNG RIGHT Planned Sedation/Anesthesia: Mod Sedation PMH/PSH: Past Medical History: Diagnosis Date Emphysema lung (HCC) Esophageal spasm IBS (irritable bowel syndrome) Migraine no longer Mitral valve prolapse Mood disorder (HCC) Past Surgical History: Procedure Laterality Date BLADDER SUSPENSION CHOLECYSTECTOMY HYSTERECTOMY ROS: All other review of systems are negative See chart for complete details of history, review of systems, physical exam, labs, imaging data andassessment. Allergies: Adhesive, Sumatriptan, and Zolmitriptan Relevant Labs: Lab Results Component Value Date CREATININE 0.80 05/22/2022 EGFR 81 08/29/2017 INR 0.9 07/02/2023 Current Meds: Outpatient Medications Marked as Taking for the 07/10/23 encounter (Hospital Encounter) with [facility] Medication Sig Dispense Refill albuterol HFA (PROVENTIL HFA,VENTOLIN HFA,PROAIR HFA) 90 mcg/actuation inhaler Inhale 2 puffs every4 (four) hours as needed for wheezing 1 each 0 qdmwopnlyx-nwbzgrhw-bnkrauhezk (Breztri Aerosphere) 160-9-4.8 mcg/actuation HFA aerosol inhaler [...] mg extended release tablet Rx: Metoprolol Succinate omeprazole (PriLOSEC) 20 mg capsule Take 1 capsule (20 mg total) by mouth daily 30 capsule 11 Pertinent medications have been reviewed with the patient and/or their home office representative. Most Recent Vitals: Vitals: 07/10/23 0951 BP: 120/65 Pulse: 71 Resp: 16 Temp: SpO2: 99% Airway assessment: normal Physical Exam Cardiac: No Significant Abnormality Pulmonary: No Significant Abnormality Neurological: No Significant Abnormality ASA Score: 2 NPO time: after midnight Benefits, risks and alternatives of procedure and planned sedation have been discussed with the patient and/or their home office representative. All questions answered and they agree to proceed. documented in this encounter Plan of Treatment Not on file documented as of this encounter Procedures Procedure Name Priority Date/Time Associated Diagnosis Comments XR CHEST 1 VIEW IP Routine 07/10/2023 12:25 PM CDT XR CHEST 1 VIEW IP Routine 07/10/2023 10:[address] NEEDLE BIOPSY LUNG RIGHT Schedule Routine, Read Routine (OP Routine) 07/10/2023 9:53 AM CDT Pulmonary nodule SURGICAL PATHOLOGY Routine 07/10/2023 9:25 AM CDT Pulmonary nodule documented in this encounter Results * XR [...] D: ??07/10/2023 12:51 PM T: Report ID: [id number] Reading Location: ??[id number] Procedure Note Carlos Nam MD - 07/10/2023 [...] signed by Carlos KEY T: Report ID: [id number] Reading Location: [id number] Carlos Nam MD IMG XR PROCEDURES Kathy l Result * XR Chest 1 View (07/10/2023 10:39 [...] 12:51 PM - Electronically signed by ??Carlos Nam M.D. KR D: ??07/10/2023 12:51 PM T: Report ID: [id number] Reading Location: ??[id number] Procedure Note Carlos Nam MD - 07/10/2023 [...] 12:51 PM - Electronically signed by Carlos Somersetmihir Nam M.D. KR T: Report ID: [id number] Reading Location: [place] [address] Carlos Nam MD IMG XR PROCEDURES Kathy l Result * CT Lung Needle Biopsy Right (07/10/2023 [...] D: ??07/10/2023 10:08 AM T: Report ID: [id number] Reading Location: ??[id number] Procedure Note Carlos Nam MD - 07/10/2023 [...] Carlos Nam M.D. KR T: Report ID: [id number] Reading Location: [id number] us Donte Campuzano MD IMG CT PROCEDURES Final R esult * Surgical pathology (07/10/2023 9:25 AM CDT) Tissue (Lung Biopsy) 07/10/2023 9:25 AM CDT Narrative PATHOLOGY [facility] - 07/15/2023 7:50 AM CDT [facility] Department of Pathology [address] [place] [address] ?? Note to Patients: ??This report may contain a detailed description of human tissue sent by a health care provider to the laboratory for pathologic evaluation. ??The content of this report is essential for diagnosis and may provide important critical findings. ??This information may be unfamiliar to patients to review without a medical professional present. ?? It is advised that the patient review this report in the presence of a health care provider who can answer questions and explain the details. Final Report with Addendum Patient Name: OBI GAMA : ??1965 (Age: 58) Gender: ??F Address: ??[address] [facility] [place], [place] ??[address] [facility] #: [id number] Service: UNKNOWN Location: Patient Type: [facility] ? Taken: 07/10/2023 Received: 07/10/2023 Accessioned: 07/10/2023 Reported: 07/15/2023 Physician(s): Carlos Nam M.D. Diagnosis: Lung, right lower lobe, core biopsy: ? - Benign lung parenchyma with focal noncaseating granulomatous inflammation ? - Chronic inflammation with reactive bronchial epithelial cells ? - AFB and GMS stains pending, to be reported in addendum ? - No evidence of malignancy ? - See comment Giancarlo Oliva MD Report Electronically Reviewed and Signed Out By ??Giancarlo Oliva MD 07/15/2023 07:50:32 Addenda: Addendum - 1 MH Addendum Diagnosis AFB and GMS stains are negative for acid-fast and fungal organisms. ??These findings raise concern that this cluster of noncaseating granulomas represents sarcoid. ??Clinical correlation is also suggested. Addendum Comment The AFB and GMS control sections show appropriate staining. ? Specimen(s) Received: A: Right lower lobe lung nodule Intraoperative Diagnosis: A. ??Lung, right lower lobe, core biopsy touch prep Evaluation Episode #1: ??Two cores touched-rare atypical cells and one multinucleate cell; nondiagnostic Evaluation Episode #2: ??Adequate, atypical at least Preliminary Diagnosis if Provided: ??Adequate, atypical (favor adenocarcinoma) Total Evaluation Episodes: 2 Dr. Thomas 07/10/2023 at 9:25 AM Latisha Thomas M.D. Microscopic Description: Microscopic examination substantiates the above cited diagnosis. The sections demonstrate benign lung parenchyma with a cluster of noncaseating granulomas. ??We would have some concern for sarcoid. ??AFB and GMS stains are pending, to be reported in an addendum. ??There is also some chronic inflammation, and some reactive epithelial changes. ??We believe that these latter reactive cells were the cells noted to be atypical at the time of intraoperative touch preps. ??We do not see features diagnostic for malignancy in this biopsy material. Microscopic examination substantiates the above cited diagnosis. The sections demonstrate benign lung parenchyma with a cluster of noncaseating granulomas. ??We would have some concern for sarcoid. ??AFB and GMS stains are pending, to be reported in an addendum. ??There is also some chronic inflammation, and some reactive epithelial changes. ??We believe that these latter reactive cells were the cells noted to be atypical at the time of intraoperative touch preps. ??We do not see features diagnostic for malignancy in this biopsy material. Clinical History: The patient is a 58-year-old woman with a pulmonary nodule. ??Operative procedure: Right lower lobe core biopsy. Gross Description Received in formalin, labeled with the patient? ? s identifiers and right lower lobe lung nodule and consists of four araujo-pink, friable tissue cores each measuring less than 0.1 cm in diameter, and ranging from 0.2-1.2 cm in length. ??Entirely submitted. Labeled A1 to A2. Jar 0. jjmhb/07/10/2023 13:43 JANINE Weinstein, PA (ASCP) Microscopic slide review and interpretation for this case was performed at [facility], Department of Surgical Pathology, [address] [facility] [place], [place] [id number], ??[place], [place] ??[address] ?? CLIA # [id number] us Donte Campuzano MD LAB PATHOLOGY ORDERABLES Final Result PATHOLOGY [facility] documented in this encounter Visit Diagnoses Diagnosis Pulmonary nodule Other diseases of lung, not elsewhere classified documented in this encounter Administered Medications Inactive Administered Medications - up to 3 most recent administrations Medication Order MAR Action Action Date Dose Rate Site fentaNYL (SUBLIMAZE) preservative free injection intravenous, As needed, Starting on Tiffanie 07/10/23 at 0912, Intra-Op Given 07/10/2023 9:21 AM CDT 25 mcg Given 07/10/2023 9:12 AM CDT 25 mcg lidocaine (XYLOCAINE) 10 mg/mL (1 %) injection As needed, Starting on Tiffanie 07/10/23 at 0914, Intra-Procedure (IR), Indications: Administration of Local AnesthesiaIndications:Administration of Local Anesthesia Given 07/10/2023 9:14 AM CDT 7 mL midazolam (VERSED) 1 mg/mL injection As needed, Starting on Tiffanie 07/10/23 at 0910, Intra-Op Given 07/10/2023 9:20 AM CDT 0.5 mg Given 07/10/2023 9:10 AM CDT 0.5 mg sodium chloride 0.9% infusion intravenous, Continuous PRN, Starting on Tiffanie 07/10/23 at 0859, Intra-Op New Bag 07/10/2023 8:59 AM CDT 20 mL/hr 20 mL/hr documented in this encounter Orders Discharge Count Last Ordered Date First Orde red Date DISCHARGE PATIENT 1 07/10/2023 documented in this encounter Care Teams Van Loader Relationship Specialty Start Date End Date Bouchra Vickers MD [address] [address] PCP - General 01/18/19 Sultan Elvin Mccartney MD [address] [address] Consulting Physician Cardiovascular Disease 05/22/22 Donte Campuzano MD [address] [place] [address] Consulting Physician Pulmonary Disease 05/22/22 documented as of this encounter
--- OUTSIDE RECORDS SUMMARY | 2024-04-02 18:39 | XMS_ITS | Encounter Summary ---
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 Gender Identity Not on file Sexual Orientation Not on file documented as of this encounter Plan of Treatment Not on file documented as of this encounter Procedures Procedure Name Priority Date/Time Associated Diagnosis Comments EGFR Routine 11/09/2021 11:06 AM CDT DIFFERENTIAL AUTO Routine 11/09/2021 11: 06 AM CDT URINALYSIS AND REFLEX TO MICROSCOPIC AND CULTURE Routine 11/09/2021 11:06 AM CDT CBC WITH AUTO DIFFERENTIAL Routine 11/09/2021 11:06 AM CDT RPR Routine 11/09/2021 11:06 AM CDT TSH Routine 11/09/2021 11:06 AM CDT T4, FREE Routine 11/09/2021 11:06 AM CDT HEMOGLOBIN A1C Routine 11/09/2021 11:06 AM CDT FOLATE Routine 11/09/2021 11:06 AM CDT VITAMIN B12 Routine 11/09/2021 11:06 AM CDT COMPREHENSIVE METABOLIC PANEL Routine 11/09/2021 11:06 AM CDT documented in this encounter Results * eGFR (11/09/2021 11:06 AM CDT) [facility] eGFR 100 mL/min/1. 73 m2 KEYSHA HONG [...] of Race in Diagnosing Kidney Disease, JASN 202). The CKD-EPI equation should not be used for patients with unstable renal function and has not been validated in children and those over 70. Current interpretive data was last reviewed 2021. Blood 11/09/2021 11:0 6 AM CDT 11/09/2021 11:20 AM CDT Bouchra Vickers MD LAB BLOOD ORDERABLES Final Resul t KEYSHA [address] [facility] Department [place] [address] * Differential, auto (11/09/2021 11:06 AM CDT) Neutrophil abs 3.6 1.7 - 6.5 K/cumm [facility] Imm gran abs 0.0 0.0 - 0.1 K/cumm [facility] Lymphocyte abs 1.5 0.8 - 3.3 K/cumm [facility] Monocyte abs 0.5 0.2 - 0.8 K/cumm [facility] Eosinophil abs 0.2 0.0 - 0.5 K/cumm [facility] Basophil abs 0.1 0.0 - 0.1 K/cumm [facility] Neutrophil pct 61.4 % [facility] Comment: Interpretive Data Percent cell count reference ranges are not reported, since discordance with absolute values may lead to misinterpretation of CBC data. Current Interpretive Data was last revised on 2017. Imm gran pct 0.2 % [facility] Comment: Interpretive Data Percent cell count reference ranges are not reported, since discordance with absolute values may lead to misinterpretation of CBC data. Current Interpretive Data was last revised on 2017. Lymphocyte pct 25.8 % [facility] Comment: Interpretive Data Percent cell count reference ranges are not reported, since discordance with absolute values may lead to misinterpretation of CBC data. Current Interpretive Data was last revised on 2017. Monocyte pct 8.1 % [facility] Comment: Interpretive Data Percent cell count reference ranges are not reported, since discordance with absolute values may lead to misinterpretation of CBC data. Current Interpretive Data was last revised on 2017. Eosinophil pct 3.3 % [facility] Comment: Interpretive Data Percent cell count reference ranges are not reported, since discordance with absolute values may lead to misinterpretation of CBC data. Current Interpretive Data was last revised on 2017. Basophil pct 1.2 % [facility] Comment: Interpretive Data Percent cell count reference ranges are not reported, since discordance with absolute values may lead to misinterpretation of CBC data. Current Interpretive Data was last revised on 2017. Blood 11/09/2021 11:0 6 AM CDT 11/09/2021 11:20 AM CDT Result [facility] Bouchra Vickers MD LAB BLOOD ORDERABLES Final Resul t Performing Organization Address City/[facility] Co de Phone Number [address] [address] * Folate (11/09/2021 11:06 AM CDT) Pathologist [facility] Folic acid 11.6 >=5.0 ng/mL [facility] Blood 11/09/2021 11:0 6 AM CDT 11/09/2021 11:20 AM CDT Result [facility] Bouchra Vickers MD LAB BLOOD ORDERABLES Final Resul t Performing Organization Address [facility] de Phone Number [address] [address] * (ABNORMAL) Vitamin B12 (11/09/2021 11:06 AM CDT) Pathologist [facility] Vitamin B12 184(L) 230 - 1,250 pg/mL [facility] Blood 11/09/2021 11:0 6 AM CDT 11/09/2021 11:20 AM CDT Result [facility] Bouchra Vickers MD LAB BLOOD ORDERABLES Final Resul t Performing Organization Address [facility] de Phone Number [address] [address] * (ABNORMAL) Hemoglobin A1c (11/09/2021 11:06 AM CDT) Pathologist [facility] Hgb A1C 5.7(H) 4.0 - 5.6 % KEYSHA Estimated Average Glucose 117 mg/dL [facility] Comment: The ADA recommends reporting an estimated Average Glucose (eAG) with all Hemoglobin A1c results using the equation derived from a study of 507 normal and diabetic adults. ??Minority populations were underrepresented and children were not included. ?? (Diabetes Care 31:6286-7808, 2008). ??The eAG is not equivalent to a fasting glucose. Blood 11/09/2021 11:0 6 AM CDT 11/09/2021 11:20 AM CDT Bouchra Vickers MD LAB BLOOD ORDERABLES Final Resul t Performing Organization Address [facility] de Phone Number [address] [address] * RPR Blood (11/09/2021 11:06 AM CDT) Pathologist [facility] RPR Nonreactive Nonreactive [facility] Comment:Testing performed by : [facility], [address] [place]., [address] Blood 11/09/2021 11:0 6 AM CDT 11/09/2021 1:22 PM CDT Bouchra Vickers MD LAB MICROBIOLOGY - GENERAL ORDER LUIS Final Result Performing Organization Address [facility] de Phone Number [address] [address] * Urinalysis reflex to microscopic and culture Urine (11/09/2021 11:06 AM CDT) Color, ur Straw Yellow [facility] Clarity, ur Clear Clear [facility] Specific gravity, ur <1.005 1.003 - 1.030 [facility] pH, urine 7.0 [facility] Protein, ur ql Negative Negative [facility] Glucose, ur ql Negative Negative [facility] Ketones, ur Negative Negative [facility] Bilirubin, ur Negative Negative [facility] Blood, ur Negative Negative [facility] Urobilinogen, ur <2.0 <2.0 mg/dL [facility] Nitrite, ur Negative Negative [facility] Leukocyte esterase, ur Negative Negative [facility] UA reflex comment Reflex conditions for microscopic UA and culture not met. [facility] Urine 11/09/2021 11:0 6 AM CDT 11/09/2021 11:56 AM CDT Narrative [facility] - 11/09/2021 12:04 PM CDT ?? Urine pH is affected by diet, medications, systemic acid-base disturbances, and renal tubular function. ??pH may affect urinary stone formation. ??For example, urine pH below 6.0 may help reduce the tendency for calcium phosphate stones and pH greater than 6.0 may reduce the tendency for uric acid stone formation. Source: [facility] [employer]. Last revised 04-10-2017 Bouchra Vickers MD LAB MICROBIOLOGY - GENERAL ORDER LUIS Final Result Performing Organization Address City/[facility] Co de Phone Number KEYSHA [address] [place] [address] [place] [address] * CBC with auto differential (11/09/2021 11:06 AM CDT) WBC 5.8 3.8 - 9.9 K/cumm [facility] Hgb 13.0 11.9 - 15.5 g/dL [facility] Hct 39.4 35.6 - 45.5 % [facility] Plt 211 150 - 400 K/cumm [facility] MPV 10.0 9.1 - 12.3 fL [facility] RBC 4.29 3.90 - 5.20 M/cumm [facility] MCV 91.8 81.3 - 96.4 fL [facility] MCH 30.3 27.1 - 33.3 pg [facility] MCHC 33.0 32.3 - 35.7 g/dL [facility] RDW CV 12.4 11.1 - 14.9 % [facility] RDW SD 41.6 35.7 - 48.1 fL [facility] NRBC abs 0.00 0.00 - 0.01 K/cumm [facility] Blood 11/09/2021 11:0 6 AM CDT 11/09/2021 11:20 AM CDT Bouchra Vickers MD LAB BLOOD ORDERABLES Final Resul t Performing Organization Address City/[facility] Co de Phone Number [address] [address] * (ABNORMAL) T4, free (11/09/2021 11:06 AM CDT) [facility] Free T4 0.71(L) 0.90 - 1.70 ng/dL [facility] Blood 11/09/2021 11:0 6 AM CDT 11/09/2021 11:20 AM CDT Bouchra Vickers MD LAB BLOOD ORDERABLES Final Resul t Performing Organization Address [facility] Co de Phone Number [address] [address] * TSH (11/09/2021 11:06 AM CDT) [facility] Thyroid Stimulating Hormone 0.88 0.30 - 4.20 mcIUnit/mL [facility] Blood 11/09/2021 11:0 6 AM CDT 11/09/2021 11:20 AM CDT Bouchra Vickers MD LAB BLOOD ORDERABLES Final Resul t Performing Organization Address [facility] de Phone Number [address] [address] * Comprehensive metabolic panel (11/09/2021 11:06 AM CDT) [facility] Sodium 137 135 - 145 mmol/L [facility] Potassium, pl 3.9 3.3 - 4.9 mmol/L [facility] Chloride 101 97 - 110 mmol/L [facility] CO2 29 22 - 32 mmol/L [facility] Anion gap 7 2 - 15 mmol/L [facility] BUN 9 8 - 25 mg/dL [facility] Creatinine 0.70 0.60 - 1.10 mg/dL [facility] Glucose 95 70 - 199 mg/dL [facility] Comment: Interpretive Data Fasting glucose >/= 126 [...] classification and Diagnosis of Diabetes Diabetes Care 2017;40 (Suppl. 1):S11. Current interpretive data was last revised 2017. Calcium 9.3 8.5 - 10.3 mg/dL [facility] Bilirubin, total 0.3 0.1 - 1.2 mg/dL [facility] Protein, pl 6.8 6.5 - 8.5 g/dL [facility] Albumin 4.4 3.5 - 5.0 g/dL [facility] Alk phos 47 40 - 130 Units/L [facility] ALT 7 7 - 45 Units/L [facility] AST 13 10 - 45 Units/L [facility] Blood 11/09/2021 11:0 6 AM CDT 11/09/2021 11:20 AM CDT Bouchra Vickers MD LAB BLOOD ORDERABLES Final Resul t KEYSHA [address] [facility] Department [place] [address] documented in this encounter Visit Diagnoses Not on filedocumented in this encounter Care Teams System Controller Relationship Specialty Start Date End Date Bouchra Vickers MD [address] [place] [address] PCP - General 01/18/19 documented as of this encounter
--- OUTSIDE RECORDS SUMMARY | 2024-04-02 18:39 | XMS_ITS | Encounter Summary ---
Author Organization [facility] Healthcare Address [address] [place] [address] Care Team Providers Care Commission Associate Name Role Phone Bouchra Vickers MD Primary Care Provider [phone] Reason for Referral * Diagnostic Imaging (Routine) - Closed Specialty Diagnoses / Procedures Referred By Contac t Referred To Contact Diagnoses Low back pain Procedures XR Spine Lumbar 2 or 3 Views Bouchra Vickers MD [address] [address] Phone: tel: fax: [address] [phone] Referral ID Status Reason Start Date Expiration Date Visits Re quested Visits Authorized [id number] Closed 11/30/2020 12/30/2021 1 1 Reason for Visit * Diagnostic Imaging (Routine) - Closed Specialty Diagnoses / Procedures Referred By Contac t Referred To Contact Diagnoses Low back pain Procedures XR Spine Lumbar 2 or 3 Views Bouchra Vickers MD [address] [address] Phone: tel: fax: [address] [phone] Referral ID Status Reason Start Date Expiration Date Visits Re quested Visits Authorized [id number] Closed 11/30/2020 12/30/2021 1 1 Encounter Details Date Type Department Care Team (Latest Contact Info) Description 11/30/2020 8:55 AM CDT - 11/30/2020 11:59 PM CDT Hospital [facility] [address] [place] [id number] Low back pain Discharge Disposition: Discharge to home or self care Social History Tobacco Use Types Packs/Day Years Used Date Smoking Tobacco: Never Comments Unknown Sex and Gender Information Value Date Recorded Sex Assigned at Not on file 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 Gender Identity Not on file Sexual Orientation Not on file documented as of this encounter Medications at Time of Discharge Medication Sig Dispense Quantity Refills Last Filled Start D ate End Date polyethylene glycol (MIRALAX) 17 gram/dose powder 04/24/2012 documented as of this encounter Discharge Disposition Disposition Code Departure Means Destination Discharge to home or self care documented in this encounter Plan of Treatment Not on file documented as of this encounter Procedures Procedure Name Priority Date/Time Associated Diagnosis Comments XR SPINE LUMBAR 2 OR 3 VIEWS Schedule Routine, Read Routine (OP Routine) 11/30/2020 9:09 AM CDT Low back pain documented in this encounter Results * XR Spine Lumbar 2 or 3 Views (11/30/2020 9:09 AM CDT) Anatomical Region Laterality Modality Spine N/A Computed Radiogr aphy 11/30/2020 2:23 PM CDT Narrative 11/30/2020 2:26 PM CDT EXAM DESCRIPTION: ?? XR SPINE LUMBAR 2 OR 3 VIEWS REASON FOR STUDY: ??Lower back pain radiating to the flank for 3 months. ?? TECHNIQUE: ?? 3 radiographic views acquired of the lumbar spine. COMPARISON: ?? CT abdomen pelvis from 02/16/2010 FINDINGS: SEGMENTATION: ??Normal. ??No transitional anatomy. ALIGNMENT: ??Normal. VERTEBRAE: ??Well-maintained height. ??No fracture or worrisome bone lesion. Mild L5-S1 facet arthropathy is noted. DISCS: ??Minimal disc height loss is noted at L5-S1. OTHER: ??Cholecystectomy clips are noted IMPRESSION: ?? Mild degenerative changes, as detailed above. ??No acute osseous abnormality. THIS IS AN ELECTRONICALLY VERIFIED FINAL REPORT 11/30/2020 2:26 PM - Electronically signed by Michele Ash M.D. MZ D: ??11/30/2020 2:26 PM T: Report ID: [id number] Reading Location: ??[id number] Procedure Note Michele Ash MD - 11/30/2020 EXAM DESCRIPTION: XR SPINE LUMBAR 2 OR 3 VIEWS REASON FOR STUDY: Lower back pain radiating to the flank for 3 months. TECHNIQUE: 3 radiographic views acquired of the lumbar spine. COMPARISON: CT abdomen pelvis from 02/16/2010 FINDINGS: SEGMENTATION: Normal. No transitional anatomy. ALIGNMENT: Normal. VERTEBRAE: Well-maintained height. No fracture or worrisome bone lesion. Mild L5-S1 facet arthropathy is noted. DISCS: Minimal disc height loss is noted at L5-S1. OTHER: Cholecystectomy clips are noted IMPRESSION: Mild degenerative changes, as detailed above. No acuteosseous abnormality. THIS IS AN ELECTRONICALLY VERIFIED FINAL REPORT 11/30/2020 2:26 PM - Electronically signed by Michele Ash M.D. MZ T: Report ID: [id number] Reading Location: [id number] Bouchra Vickers MD IMG XR PROCEDURES Final Result documented in this encounter Visit Diagnoses Diagnosis Low back pain Lumbago documented in this encounter Care Teams Commission Associate Relationship Specialty Start Date End Date Bouchra Vickers MD [address] [address] PCP - General 01/18/19 documented as of this encounter
--- OUTSIDE RECORDS SUMMARY | 2024-04-02 18:40 | XMS_ITS | Encounter Summary ---
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 Social History Tobacco Use Types Packs/Day Years Used Date Smoking Tobacco: Never Comments Unknown Sex and Gender Information Value Date Recorded Sex Assigned at Not on file 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 Gender Identity Not on file Sexual Orientation Not on file documented as of this encounter Last Filed Vital Signs Vital Sign Reading Time Taken Comments Blood Pressure 122/64 08/29/2017 2:35 AM CDT Pulse 66 08/29/2017 2:35 AM CDT Temperature - - Respiratory Rate - - Oxygen Saturation 99% 08/29/2017 2:35 AM CDT Inhaled Oxygen Concentration - - Weight 47.6 kg (105 lb) 08/29/2017 2:35 AM CDT Height 160 cm (5' 3 ) 08/29/2017 2:35 AM CDT Body Mass Index 18.6 08/29/2017 2:35 AM CDT documented in this encounter Medications at Time of Discharge Medication Sig Dispense Quantity Refills Last Filled Start D ate End Date polyethylene glycol (MIRALAX) 17 gram/dose powder 04/24/2012 documented as of this encounter Plan of Treatment Not on file documented as of this encounter Procedures Procedure Name Priority Date/Time Associated Diagnosis Comments CBC WITH AUTO DIFFERENTIAL Routine 08/29/2017 5:48 AM CDT TROPONIN I Routine 08/29/2017 5:48 AM CDT PROTIME-INR Routine 08/29/2017 5:48 AM CDT LIPASE Routine 08/29/2017 5:48 AM CDT COMPREHENSIVE METABOLIC PANEL Routine 08/29/2017 5:48 AM CDT documented in this encounter Results * Troponin I (08/29/2017 5:48 AM CDT) Troponin I < 0.300 0.000 - 0.300 ng/mL Comment: Reference using HUNTER Chemiluminescence ? Negative: Repeat in 4-6 hours as indicated. 08/29/2017 5:48 AM CDT 08/29/2017 6:02 AM CDT us Kd Ramírez II, MD LAB BLOOD ORDERABLES Kathy l Result [facility] HISTORICAL RESULTS * Protime-INR (08/29/2017 5:48 AM CDT) Pathologist [facility] PT 12.7 11.8 - 14.5 SECONDS INR 0.95 Comment: Recommended Therapeutic range for Oral Anticoagulant Therapy No anti-coagulation therapy ? Normal Range: ?0.8-1.4 Anti-coagulation therapy ? Low intensity therapy ?2.0-3.0 ? High intensity therapy ?? 2.5-3.5 Critical Value ? Greater than or equal to 5.0 Patients should be monitored for serious bleeding. ?? 08/29/2017 5:48 AM CDT 08/29/2017 6:02 AM CDT Kd Ramírez II, MD LAB BLOOD ORDERABLES Kathy l Result Performing Organization Address [facility] Co de Phone Number [facility] HISTORICAL RESULTS * Lipase (08/29/2017 5:48 AM CDT) Lipase 45 13 - 60 U/L 08/29/2017 5:48 AM CDT 08/29/2017 6:02 AM CDT Kd Ramírez II, MD LAB BLOOD ORDERABLES Kathy l Result Performing Organization Address [facility] de Phone Number [facility] HISTORICAL RESULTS * (ABNORMAL) Comprehensive metabolic panel (08/29/2017 5:48 AM CDT) Sodium 141 135 - 145 mmol/L Potassium 5.2(H) 3.3 - 5.1 mmol/L Chloride 103 96 - 108 mmol/L Carbon Dioxide 30 22 - 32 mmol/L Anion Gap 8 7 - 16 Glucose 135(H) 70 - 100 mg/dL BUN 17 6 - 20 mg/dL Creatinine 0.6 0.5 - 1.1 mg/dL Comment: NOTE: Estimated GFR (Cockroft-Gault) will NOT be calculated unless patient Height and Weight were entered. Also, Kidney Disease Stage (GFR) and Estimated GFR (Cockroft-Gault) will NOT be calculated if Creatinine result is <0.2. Kidney Disease Stage > 90 mL/MIN 08/29/2017 6:[address] [facility] HIST[facility] Comment: NOTE; ??The GFR is an estimated value using the creatinine, sex, age, and race of the patient. THE Estimated Kidney Disease GFR is validated for AGES 18-70 YEARS STAGE ?mL/Min ?DESCRIPTION ??1 ?90 mL/min or more ?Normal or elevated GFR ??2 ? 60-89 mL/min ?Mildly decreased GFR ??3 ? 30-59 mL/min ?Moderately decreased GFR ??4 ? 15-29 mL/min ?Severely decreased GFR ??5 ? <15 mL/min ? Kidney failure or on dialysis @ Est GFR (Cockcroft-G) 81 ml/MIN 08/29/2017 6:[address] [facility] HISTOR[facility] RESULTS Comment: Estimated GFR(Cockroft-Gault)is used to calculate patient medication dosage Calcium 9.3 8.6 - 10.0 mg/dL 08/29/2017 6:34 AM [facility] HISTORICAL RESULTS Total Protein 6.6 6.4 - 8.3 g/dL 08/29/2017 6:[address] [facility] HISTORICAL RESULTS Albumin 4.4 3.5 - 5.2 g/dL 08/29/2017 6:[address] [facility] HISTORICAL RESULTS Globulin 2.2(L) 2.3 - 3.5 gm/dL Albumin/Globulin Ratio 2.0(H) 1.1 - 1.8 Total Bilirubin 0.3 0.0 - 1.2 mg/dL AST 40(H) 0 - 32 U/L ALT 30 0 - 33 U/L Alkaline Phosphatase 54 35 - 104 U/L 08/29/2017 5:48 AM CDT 08/29/2017 6:02 AM CDT us Kd Ramírez II, MD LAB BLOOD ORDERABLES Kathy l Result [facility] HISTORICAL RESULTS * (ABNORMAL) CBC with auto differential (08/29/2017 5:48 AM CDT) WBC 9.5 3.5 - 10.5 x10 3/ul RBC 4.34 3.76 - 4.80 x10 6/ul Hemoglobin 13.0 11.0 - 15.0 g/dL Hct 38.2 33.0 - 43.0 % MCV 88.0 80.0 - 97.0 fl MCH 30.0 27.0 - 31.2 pg MCHC 34.0 31.8 - 35.4 g/dl RDW 12.4 11.6 - 14.8 % Plt Count 182 150 - 450 X10 3/ul MPV 9.8 7.4 - 10.4 fl Neut % 89.4(H) 37.0 - 85.0 % Immature Gran % 0.2 0.0 - 3.0 % Lymph % 7.1 5.0 - 45.0 % Foster % 3.0 3.0 - 15.0 % Eos % 0.0 0.0 - 7.0 % Baso % 0.3 0.0 - 2.0 % Absolute Neuts (auto) 8.5 1.7 - 8.7 x10 3/ul Immature Gran # 0.0 0.0 - 0.3 x10 3/ul Absolute Lymphs (auto) 0.7 0.2 - 4.6 x10 3/ul Absolute Monos (auto) 0.3 0.1 - 1.5 x10 3/ul Absolute Eos (auto) 0.0 0.0 - 0.7 x10 3/ul Absolute Basos (auto) 0.0 0.0 - 0.2 x10 3/ul Nucleat RBC Rel Count 0.0 0 - 3 #/100WBC Absolute Nucleated RBC 0.00 x10 3/ul Absolute Neutrophils 8500(H) 200 - 8000 /ul 08/29/2017 5:48 AM CDT 08/29/2017 6:02 AM CDT us Kd Ramírez II, MD LAB BLOOD ORDERABLES Kathy rivera Result [facility] HISTORICAL RESULTS documented in this encounter Visit Diagnoses Diagnosis Dyskinesia of esophagus Major depressive disorder, single episode Major depressive disorder, single episode, unspecified 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
--- OUTSIDE RECORDS SUMMARY | 2024-04-02 18:40 | XMS_ITS | Encounter Summary ---
Author Organization [facility] Healthcare Address [address] [place] [address] Care Team Providers Care Experimental Plastics Fabricator Name Role Phone Unavailable Primary Care Provider Unavailabl e Encounter Details Date Type Department Care Team (Latest Contact Info) Description 09/22/2015 3:34 PM CDT Hospital Encounter [facility] Praveen Marie MD [address] [facility] [address] [phone] Encounter for screening mammogram for malignant neoplasm of breast Social History Tobacco Use Types Packs/Day Years Used Date Smoking Tobacco: Never Comments Unknown Sex and Gender Information Value Date Recorded Sex Assigned at Not on file 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 A 1 year screening mammogram is recommended. ?? The patient has been or will be contacted. ?? The patient will be entered into a reminder system with a target due date of 1 year for her next screening exam. Electronically signed by: Dr. Jose Donohue nh/:09/22/2015 19:53:12 ?? Charter Coordinator: Preeti Fields)([place]), [facility] letter sent: Normal Exam ?? Reading location: BI-RADS: 1 Negative [EOD] Narrative 09/22/2015 7:54 PM CDT - MG BILATERAL DIGITAL SCREENING MAMMOGRAM 3D/2D WITH CAD WITH MEDIOLATERAL OBLIQUE CRANIOCAUDAL: 09/22/2015 The study was acquired using full field digital technology and interpreted from soft copy. ?? Current study was also evaluated with R2 CAD. 2D digital mammographic views, as well as 3D digital tomosynthesis were performed in the CC and MLO projections. CLINICAL: Baseline exam. Patient denies any problems today. No family or personal history of breast cancer. ?? COMPARISONS: None. ?? BREAST TISSUE: There are scattered areas of fibroglandular density. ?? FINDINGS: No significant masses, calcifications, or other findings are seen in either breast. ?? Procedure Note Provider, MD Blessing - 08/14/2020 - MG BILATERAL DIGITAL SCREENING MAMMOGRAM 3D/2D WITH CAD WITH MEDIOLATERALOBLIQUE CRANIOCAUDAL: 09/22/2015 The study was acquired using full field digital technology and interpretedfrom soft copy. Current study was also evaluated with R2 CAD. 2D digital mammographic views, as well as 3D digital tomosynthesis were performed in the CC and MLO projections. CLINICAL: Baseline exam. Patient denies any problems today. No family or personal history of breast cancer. COMPARISONS: None. BREAST TISSUE: There are scattered areas of fibroglandular density. FINDINGS: No significant masses, calcifications, or other findings areseen in either breast. IMPRESSION: BI-RAD 1 NEGATIVE There is no mammographic evidence of malignancy. A 1 year screeningmammogram is recommended. The patient has been or will be contacted. The patient will be entered into a reminder system with a target due dateof 1 year for her next screening exam. Electronically signed by: Dr. Jose Donohue nh/:09/22/2015 19:53:12 Charter Coordinator: Preeti Fields)(Ven[place]), [facility] letter sent: Normal Exam Reading location: BI-RADS: 1 Negative [EOD] us Praveen Marie MD IMG MAMMO PROCEDURES Fi nal Result * GENERAL RADIOLOGY REPORT (09/22/2015 12:00 AM CDT) Anatomical Region Laterality Modality Radiographic Nazia ging Narrative 09/22/2015 12:00 AM CDT Ordered by an unspecified provider. us Historical Provider IMKatherin XR PROCEDURES Final R esult documented in this encounter Visit Diagnoses Diagnosis Encounter for screening mammogram for malignant neoplasm of breast documented in this encounter
--- OUTSIDE RECORDS SUMMARY | 2024-04-02 18:40 | XMS_ITS | Encounter Summary ---
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 THREAD LASTER - 04/18/2014 11:59 PM STITCHDOWN THREAD LASTER Hospital Encounter [facility] Lisa, Henry Garcia MD [address] [facility] [address] [place] [address] Chest pain; Esophageal reflux; Irritable colon; Flatulence, eructation and gas pain; Constipation Social History Tobacco Use Types Packs/Day Years Used Date Smoking Tobacco: Never Assessed Comments Unknown Sex and Gender Information Value Date Recorded Sex Assigned at Not on file 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 Gender Identity Not on file Sexual Orientation Not on file documented as of this encounter Medications at Time of Discharge Medication Sig Dispense Quantity Refills Last Filled Start D ate End Date polyethylene glycol (MIRALAX) 17 gram/dose powder 04/24/2012 documented as of this encounter Plan of Treatment Not on file documented as of this encounter Procedures Procedure Name Priority Date/Time Associated Diagnosis Comments ESOPHAGEAL MOTILITY STUDY 04/18/2014 AMBULATORY ESOPHAGEAL PH MONITORING REPORT 04/18/2014 documented in this encounter Results * AMBULATORY ESOPHAGEAL PH MONITORING REPORT (04/18/2014) Anatomical Region Laterality Modality Other Narrative 04/18/2014 Ordered by an unspecified provider. us Historical Provider GI PROCEDURE ORDERABLES F inal Result * ESOPHAGEAL MOTILITY STUDY (04/18/2014) Anatomical Region Laterality Modality Other Narrative 04/18/2014 Ordered by an unspecified provider. [facility] Provider GI PROCEDURE ORDERABLES F inal Result documented in this encounter Visit Diagnoses Diagnosis Chest pain Unspecified chest pain Esophageal reflux Irritable colon Flatulence, eructation and gas pain Flatulence, eructation, and gas pain Constipation Unspecified constipation documented in this encounter
--- OUTSIDE RECORDS SUMMARY | 2024-04-02 18:40 | XMS_ITS | Encounter Summary ---
Author Organization [facility] Healthcare Address [address] [place] [address] Care Team Providers Care Account Liaison Hospice Name Role Phone Unavailable Primary Care Provider Unavailabl e Encounter Details Date Type Department Care Team (Latest Contact Info) Description 11/01/2015 7:53 AM CDT Hospital Encounter [facility] OP Bouchra Vickers MD [address] [place], [place] [id number] Pain in joint; Encounter for preprocedural laboratory examination Social History Tobacco Use Types Packs/Day Years Used Date Smoking Tobacco: Never Comments Unknown Sex and Gender Information Value Date Recorded Sex Assigned at Not on file 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 Gender Identity Not on file Sexual Orientation Not on file documented as of this encounter Medications at Time of Discharge Medication Sig Dispense Quantity Refills Last Filled Start D ate End Date polyethylene glycol (MIRALAX) 17 gram/dose powder 04/24/2012 documented as of this encounter Plan of Treatment Not on file documented as of this encounter Procedures Procedure Name Priority Date/Time Associated Diagnosis Comments MARTIN REFLEX TO QUANTITATIVE Routine 10/31 8:08 AM CDT 1,25 DIHYDROXYCHOLECALCIFEROL Routine 8:08 AM CDT CRP (ACUTE PHASE) Routine 11/01/2015 8:0 8 AM CDT documented in this encounter Results * 1,25 Dihydroxycholecalciferol (11/01/2015 8:08 AM CDT) [facility] Vit D 1,25-Dihydroxy 66.5 19.9 - 79.3 pg/mL 11/02/2015 9:24 PM CDT [facility] HISTORICAL RESULTS Comment: INTERPRETIVE INFORMATION: Vitamin D, 1,25-Dihydroxy ?? This test is primarily indicated during patient evaluation ?? for hypercalcemia and renal failure. A normal result does ?? not rule out Vitamin D deficiency. The recommended test for ?? diagnosing Vitamin D deficiency is Vitamin D 25-hydroxy. ?? Performed by [employer], ?? [address] [place] [place] [address] ?? [email or web address], Avery Marcos MD, Lab. Director ?? 11/01/2015 8:08 AM CDT 11/01/2015 8:21 AM CDT Bouchra Vickers MD LAB BLOOD ORDERABLES Final Resul t Performing Organization Address [facility] Co de Phone Number [facility] HISTORICAL RESULTS * CRP (acute phase) (11/01/2015 8:08 AM CDT) [facility] C-Reactive Protein 0.4 0.0 - 4.9 mg/L 11/01/2015 8:54 AM CDT [facility] HISTORICAL RESULTS 11/01/2015 8:08 AM CDT 11/01/2015 8:21 AM CDT Bouchra Vickers MD LAB BLOOD ORDERABLES Final Resul t Performing Organization Address [facility] Co de Phone Number [facility] HISTORICAL RESULTS * MARTIN reflex to quantitative (11/01/2015 8:08 AM CDT) [facility] MARTIN Screen None Detected None Detected 11/03/2015 1:16 AM CDT [facility] HISTORICAL RESULTS Comment: No antibodies to Anti-Nuclear Antibodies (MARTIN) detected. No ?? further testing will be performed. ?? INTERPRETIVE INFORMATION: Anti-Nuclear Antibodies (MARTIN), ?? IgG by LONDON ?? MARTIN specimens are screened using enzyme-linked ?? immunosorbent assay (LONDON) methodology. All LONDON results ?? reported as Detected are further tested by indirect ?? fluorescent assay (IFA) using HEp-2 substrate with an ?? IgG-specific conjugate. The MARTIN [place] screen is designed to ?? detect antibodies against dsDNA, histone, SS-A (Ro), SS-B ?? (La), Melendez, snRNP/Sm, Scl-70, Ember-1, centromere, and an ?? extract of lysed HEp-2 cells. MARTIN LONDON assays have been ?? reported to have lower sensitivities for antibodies ?? associated with nucleolar and speckled MARTIN-IFA patterns. ?? Performed by [employer], ?? [address], [facility] [place] [address] ?? [email or web address], Avery Marcos MD, Lab. Director ?? 11/01/2015 8:08 AM CDT 11/01/2015 8:21 AM CDT Bouchra Vickers MD LAB BLOOD ORDERABLES Final Resul t [facility] HISTORICAL RESULTS documented in this encounter Visit Diagnoses Diagnosis Pain in joint Encounter for preprocedural laboratory examination documented in this encounter
--- OUTSIDE RECORDS SUMMARY | 2024-04-02 18:40 | XMS_ITS | Encounter Summary ---
Author Organization [facility] Healthcare Address [address] [place] [address] Care Team Providers Care Service Desk Analyst Name Role Phone Bouchra Vickers MD Primary Care Provider [phone] Encounter Details Date Type Department Care Team (Latest Contact Info) Description 01/18/2019 6:01 AM CDT - 01/18/2019 9:33 AM CDT Hospital Encounter [facility]IM Saul Garibay MD [address] [facility] [address] [place] [address] Discharge Disposition: Discharge to home or self care Social History Tobacco Use Types Packs/Day Years Used Date Smoking Tobacco: Never Comments Unknown Sex and Gender Information Value Date Recorded Sex Assigned at Not on file 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 Gender Identity Not on file Sexual Orientation Not on file documented as of this encounter Last Filed Vital Signs Vital Sign Reading Time Taken Comments Blood Pressure 104/66 01/18/2019 8:15 AM CDT Pulse 72 01/18/2019 8:15 AM CDT Temperature 31.1 ??C (87.9 ??F) 01/18/2019 8:15 AM CD T Respiratory Rate - - Oxygen Saturation 97% 01/18/2019 8:15 AM CDT Inhaled Oxygen Concentration - - Weight 47.6 kg (105 lb) 01/18/2019 8:15 AM CDT Height 160 cm (5' 3 ) 01/18/2019 8:15 AM CDT Body Mass Index 18.6 01/18/2019 8:15 AM CDT documented in this encounter Medications [...] Procedure Name Priority Date/Time Associated Diagnosis Comments ECG 12-LEAD 01/18/2019 6:58 AM CDT PROCEDURE - RESULT 01/18/2019 12 :00 AM CDT documented in this encounter Results * ECG 12 lead (01/18/2019 6:58 AM CDT) Ventricular Rate EKG/Min 68 BPM [facility] Atrial Rate 68 BPM [facility] [place]-Interval (MSEC) 166 ms [facility] QRS-Interval (MSEC) 72 ms [facility] QT-Interval (MSEC) 418 ms [facility] QTc 444 ms [facility] P [place] 71 degrees [facility] R [place] 57 degrees [facility] T [place] 60 degrees [facility] Diagnosis Sinus rhythm Occasional Premature ventricular complexes Otherwise normal ECG When compared with ECG of 29-AUG-2017 05:54, Premature ventricular complexes are now Present [facility] 01/18/2019 6:58 AM CDT 01/18/2019 4:00 PM CDT Narrative Resulting Agency Comment OUTPAT us Ney Gomez DO ECG ORDERABLES Final Result [address] * PROCEDURE - RESULT (01/18/2019 12:00 AM CDT) Narrative 01/18/2019 12:00 AM CDT Ordered by an unspecified provider. us Historical Provider Final Res ult documented in this encounter Visit Diagnoses Not on filedocumented in this encounter Care Teams Service Desk Analyst Relationship Specialty Start Date End Date Bouchra Vickers MD [address] [place] [address] PCP - General 01/18/19 documented as of this encounter
--- OUTSIDE RECORDS SUMMARY | 2024-04-02 18:40 | XMS_ITS | Encounter Summary ---
Author Organization [facility] Healthcare Address [address] [place] [address] Care Team Providers Care Thermite Bomb Loader Name Role Phone Unavailable Primary Care Provider Unavailabl e Encounter Details Date Type Department Care Team (Latest Contact Info) Description 03/21/2014 8:41 AM BETTING CLERK Hospital Encounter [facility] [place] [address] [place] [id number] Chest pain; Esophageal reflux; Irritable colon; Constipation Social History Tobacco Use Types Packs/Day Years Used Date Smoking Tobacco: Never Assessed Comments Unknown Sex and Gender Information Value Date Recorded Sex Assigned at Not on file Legal Sex Female 10:19 AM BETTING CLERK Gender Identity Not on file Sexual [...] Diagnosis Comments CBC WITH AUTO DIFFERENTIAL Routine 03/21/2014 9:00 AM BETTING CLERK LIPASE Routine 03/21/2014 9:00 AM BETTING CLERK AMYLASE Routine 03/21/2014 9:00 AM BETTING CLERK HEPATIC FUNCTION PANEL Routine 03/21/2014 9:00 AM BETTING CLERK US RUQ Routine 03/21/2014 7:53 AM BETTING CLERK documented in this encounter Results * Hepatic function panel (03/21/2014 9:00 AM BETTING CLERK) Total Protein 7.6 6.4 - 8.3 g/dL Albumin 4.7 3.5 - 5.2 g/dL Globulin 2.9 2.3 - 3.5 gm/dL Albumin/Globulin Ratio 1.6 1.1 - 1.8 Total Bilirubin 0.3 0.0 - 1.2 mg/dL Direct Bilirubin < 0.20 0.00 - 0.25 mg/dL AST 14 0 - 32 U/L ALT 10 0 - 33 U/L Alkaline Phosphatase 46 35 - 104 U/L 03/21/2014 9:00 AM BETTING CLERK 03/21/2014 9:42 AM BETTING CLERK Jany LACKEY LAB BLOOD ORDERABLES Final Re sult Performing Organization Address City/[facility] Co de Phone Number [facility] * Lipase (03/21/2014 9:00 AM BETTING CLERK) Lipase 23 13 - 60 U/L 03/21/2014 9:00 AM BETTING CLERK 03/21/2014 9:42 AM BETTING CLERK Jany LACKEY LAB BLOOD ORDERABLES Final Re sult [facility] [place] [facility] * CBC with auto differential (03/21/2014 9:00 AM BETTING CLERK) WBC 5.8 4.6 - 10.2 x10 3/ul 03/21/2014 9:49 AM BETTING CLERK [facility] XDC HISTORICAL RESULTS RBC 4.39 3.76 - 4.80 x10 6/ul 03/21/2014 9:49 AM BETTING CLERK [facility] XDC HISTORICAL RESULTS Hemoglobin 13.4 11.0 - 15.0 g/dl 03/21/2014 9:49 AM BETTING CLERK [facility] XDC HISTORICAL RESULTS Hct 40.9 33.0 - 43.0 % MCV 93.2 80.0 - 97.0 fl MCH 30.5 27.0 - 31.2 pg MCHC 32.8 31.8 - 35.4 g/dl 03/21/2014 9:49 AM BETTING CLERK [facility] XDC HISTORICAL RESULTS RDW 11.9 11.6 - 14.8 % Plt Count 197 124 - 400 x10 3/ul 03/21/2014 9:49 AM BETTING CLERK [facility]DC HISTORICAL RESULTS MPV 10.3 7.4 - 10.4 fl 03/21/2014 9:49 AM BETTING CLERK [facility] XDC HISTORICAL RESULTS Differential Method AUTOMATED DIFF --------- -- 03/21/2014 9:49 AM Tictail HISTORICAL RESULTS Neut % 60.2 37.0 - 85.0 % 03/21/2014 9:49 AM [id number] [facility] XDC HISTORICAL RESULTS Immature Gran % 0.2 0.0 - 3.0 % 03/21/2014 9:49 AM BETTING CLERK [facility] XDC HISTORICAL RESULTS Lymph % 28.0 5.0 - 45.0 % 03/21/2014 9:49 AM BETTING CLERK [facility] XDC HISTORICAL RESULTS Mcmullen % 7.1 3.0 - 15.0 % 03/21/2014 9:49 AM BETTING CLERK [facility] XDC HISTORICAL RESULTS Eos % 3.1 0.0 - 7.0 % Baso % 1.4 0.0 - 2.0 % ABSOLUTE COUNTS ABSOLUTE COUNTS --------- -- Absolute Neuts (auto) 3.5 1.7 - 8.7 x10 3/ul Immature Gran # 0.0 0.0 - 0.3 x10 3/ul Absolute Lymphs (auto) 1.6 0.2 - 4.6 x10 3/ul Absolute Monos (auto) 0.4 0.1 - 1.5 x10 3/ul Absolute Eos (auto) 0.2 0.0 - 0.7 x10 3/ul Absolute Basos (auto) 0.1 0.0 - 0.2 x10 3/ul 03/21/2014 9:00 AM BETTING CLERK 03/21/2014 9:42 AM BETTING CLERK Jany LACKEY LAB BLOOD ORDERABLES Final Re sult [facility] [place] [facility] * Amylase (03/21/2014 9:00 AM BETTING CLERK) Amylase 67 28 - 100 U/L 03/21/2014 9:0 0 AM BETTING CLERK 03/21/2014 9:42 AM BETTING CLERK Jany LACKEY LAB BLOOD ORDERABLES Final Re sult [facility] [place] H[facility]ORICAL RES[place] * US RUQ (03/21/2014 7:53 AM BETTING CLERK) Anatomical Region Laterality Modality Abdomen N/A Ultrasound 03/21/2014 7:53 AM BETTING CLERK Impressions 03/21/2014 3:59 PM BETTING CLERK ??Prior cholecystectomy. ??No abnormality appreciated. THIS IS AN ELECTRONICALLY VERIFIED REPORT 03/21/2014 3:49 PM: ??Carmine Rausch M.D. Carmine Rausch M.D. RH:bb 02:13 PM 02:35 PM PAH [EOD] Narrative 03/21/2014 3:59 PM BETTING CLERK Examination: ??gallbladder ultrasound HISTORY: ??Cholecystectomy, constipation, gastroesophageal reflux disease, chest pain. TECHNIQUE: ??Multiple real-time ramos-scale images were obtained of the right upper quadrant of the abdomen in multiple obliquities. FINDINGS: ??The visualized liver is normal in size and appearance measuring 13 cm in greatest length. ??No hepatic mass is identified. ??The gallbladder is not identified, compatible with provided surgical history of prior cholecystectomy. ??The common bile duct measures 6 mm, within normal limits for age and postcholecystectomy status. ??The visualized right kidney is unremarkable. Procedure Note Provider, MD Blessing - 08/14/2020 Examination: gallbladder ultrasound HISTORY: Cholecystectomy, constipation, gastroesophageal reflux disease, chest pain. TECHNIQUE: Multiple real-time ramos-scale images were obtained of theright upper quadrant of the abdomen in multiple obliquities. FINDINGS: The visualized liver is normal in size and appearance [id number] cm in greatest length. No hepatic mass is identified. The gallbladder isnot identified, compatible with provided surgical history of prior cholecystectomy. The common bile duct measures 6 mm, within normal limitsfor age and postcholecystectomy status. The visualized right kidney is unremarkable. IMPRESSION: Prior cholecystectomy. No abnormality appreciated. THIS IS AN ELECTRONICALLY VERIFIED REPORT 03/21/2014 3:49 PM: Carmine Rausch M.D. Carmine Rausch M.D. RH:jose raul 02:13 PM 02:35 PM PAH [EOD] us Jany LACKEY IMG PROCEDURES Final Resul t documented in this encounter Visit Diagnoses Diagnosis Chest pain Unspecified chest pain Esophageal reflux Irritable colon Constipation Unspecified constipation documented in this encounter
--- OUTSIDE RECORDS SUMMARY | 2024-04-02 18:40 | XMS_ITS | Encounter Summary ---
Author Organization [facility] Healthcare Address [address] [place] [address] Care Team Providers Care Lithographer Helper Name Role Phone Unavailable Primary Care Provider Unavailabl e Encounter Details Date Type Department Care Team (Late st Contact Info) Description 12/29/2014 9:04 AM CDT Hospital Encounter [facility] OP Bouchra Vickers MD [address] [place], [place] [phone] Hypothyroidism Social History Tobacco Use Types Packs/Day Years Used Date Smoking Tobacco: Never Comments Unknown Sex and Gender Information Value Date Recorded Sex Assigned at Not on file Legal Sex Female 10:19 AM EMERGENCY DEPARTMENT AIDE Gender Identity Not on file Sexual Orientation Not on file documented as of this encounter Medications at Time of Discharge Medication Sig Dispense Quantity Refills Last Filled Start D ate End Date polyethylene glycol (MIRALAX) 17 gram/dose powder 04/24/2012 documented as of this encounter Plan of Treatment Not on file documented as of this encounter Procedures Procedure Name Priority Date/Time Associated Diagnosis Comments THYROID PANEL Routine 12/29/2014 9:52 AM CDT documented in this encounter Results * (ABNORMAL) Thyroid Panel (12/29/2014 9:52 AM CDT) TSH 0.09(L) 0.27 - 4.20 uIU/mL 12/29/2014 10:49 AM CDT [facility] Free T4 1.23 0.93 - 1.70 ng/dL 12/29/2014 9:52 AM CDT 12/29/2014 10:11 AM CDT us Bouchra Vickers MD LAB BLOOD ORDERABLES Final Resul t [facility] HISTORICAL RESULTS documented in this encounter Visit Diagnoses Diagnosis Hypothyroidism Unspecified hypothyroidism documented in this encounter
--- OUTSIDE RECORDS SUMMARY | 2024-04-02 18:40 | XMS_ITS | Encounter Summary ---
Author Organization [facility] Healthcare Address [address] [place] [address] Care Team Providers Care Clerk Guide Name Role Phone Unavailable Primary Care Provider Unavailabl e Encounter Details Date Type Department Care Team (Latest Contact Info) Description 12/06/2015 3:43 PM CDT Hospital Encounter [facility] OP Praveen Marie MD [address] [facility] [address] [address] Encounter for screening for malignant neoplasm of cervix; Encounter for screening for human papillomavirus (HPV) Social History Tobacco Use Types Packs/Day Years Used Date Smoking Tobacco: Never Comments Unknown Sex and Gender Information Value Date Recorded Sex Assigned at Not on file Legal Sex Female 10:19 AM MASSAGE THERAPY INSTRUCTOR Gender Identity Not on file Sexual Orientation Not on file documented as of this encounter Medications at Time of Discharge Medication Sig Dispense Quantity Refills Last Filled Start D ate End Date polyethylene glycol (MIRALAX) 17 gram/dose powder 04/24/2012 documented as of this encounter Plan of Treatment Not on file documented as of this encounter Procedures Procedure Name Priority Date/Time Associated Diagnosis Comments HPV HIGH RISK, BY TMA Routine 12/06/2015 12:01 PM CDT THINPREP PAP Routine 12/06/2015 12:01 PM CDT documented in this encounter Results * HPV HIGH RISK, BY TMA (12/06/2015 12:01 PM CDT) Pap HPV High Risk Negative () 016 8:08 AM CDT [facility] HISTORICAL RESULTS Comment: Test developed and characteristics determined by [facility]. See Compliance Statement B: [facility]/CS ?? INTERPRETIVE INFORMATION: HPV High Risk by TMA, ThinPrep ?? This test detects E6/E7 viral messenger RNA of the ?? high-risk HPV types 16, 18, 31, 33, 35, 39, 45, 51, 52, 56, ?? 58, 59, 66, and 68 associated with cervical cancer and its ?? precursor lesions. Cross-reactivity with low-risk HPV ?? genotypes 26, 67, 70, and 82 may occur. Sensitivity may be ?? affected by specimen collection methods, stage of ?? infection, and the presence of interfering substances. ?? Results should be interpreted in conjunction with other ?? available laboratory and clinical data. ?? This test is intended for medical purposes only and is not ?? valid for the evaluation of suspected sexual abuse or for ?? other forensic purposes. HPV testing should not be used for ?? screening or management of atypical squamous cells of ?? undetermined significance (ASCUS) in women under age 21. ?? Performed by [facility], ?? [address] [place] [address] ?? [email or web address], Aveyr Marcos MD, Lab. Director ?? 12/06/2015 12:0 1 PM CDT 12/06/2015 4:49 PM CDT Praveen Marie MD LAB BLOOD ORDERABLES Fi nal Result [facility] HISTORICAL RESULTS * ThinPrep Pap (12/06/2015 12:01 PM CDT) Thin Prep Pap Smear SEE BELOW () 12/14 1:47 PM CDT [facility] HISTORICAL RESULTS Comment: Financial Auditor ThinPrep Cytology Final Report ? ThinPrep Pap Specimen Source ? Vagina ?? Specimen Adequacy ? Satisfactory for interpretation, endocervical cells ?? (transformation zone) not present. ?? Interpretation ? Negative for intraepithelial lesion or malignancy. ?? 12/14/15 Souvenir And Novelty Maker: Lopez Roman CT(ASCP) ?Reviewed by: JCW ?? 12/15/15 ?Verified By: RICHARD Kemp(ASCP) ? electronic signature ?? [facility], Department of Pathology ?? [address] [facility] ?? [place] [address] ?? For questions regarding this case, ?? call ext. [phone] ?? CPT Code(s) ? 69311 ?? Clinical History ? LMP: HYST ?? : N ?? : N ?? IUD: N ?? Hormone Therapy: N ?? Postmenopausal: N ?? Previous surgery date and type: N ?? Hysterectomy: Y ?? Chemotherapy: N ?? GABRIEL Exposure: N ?? Radiation: N ?? Previous Abnormal Pap? Details: N ?? Diagnostic or Screening Pap Test: Screening ?? Performed by [facility], ?? [address], [facility] [place] [address] ?? [email or web address], Avery Marcos MD - Lab. Director ?? 12/06/2015 12:0 1 PM CDT 12/06/2015 4:49 PM CDT Praveen Marie MD LAB PATHOLOGY ORDERABLE S Final Result [facility] HISTORICAL RESULTS documented in this encounter Visit Diagnoses Diagnosis Encounter for screening for malignant neoplasm of cervix Encounter for screening for human papillomavirus (HPV) documented in this encounter
--- OUTSIDE RECORDS SUMMARY | 2024-04-02 18:40 | XMS_ITS | Encounter Summary ---
Author Organization [facility] Healthcare Address [address] [place] [address] Care Team Providers Care Senior Civil Engineer Name Role Phone Bouchra Vickers MD Primary Care Provider [phone] Encounter Details Date Type Department Care Team (Late st Contact Info) Description 03/13/2020 1:25 PM DRY CELL BATTERY ASSEMBLER Lab [address] [address] Cough Social History Tobacco Use Types Packs/Day Years Used Date Smoking Tobacco: Never Comments Unknown Sex and Gender Information Value Date Recorded Sex Assigned at Not on file Legal Sex Female 10:19 AM DRY CELL BATTERY ASSEMBLER Gender Identity Not on file Sexual Orientation Not on file documented as of this encounter Plan of Treatment Not on file documented as of this encounter Procedures Procedure Name Priority Date/Time Associated Diagnosis Comments INFLUENZA A/B AND COVID-19 PCR Routine 03/13/2020 8:26 AM DRY CELL BATTERY ASSEMBLER Cough documented in this encounter Results * (ABNORMAL) Influenza A/B and COVID-19 PCR ([facility] ONLY) Nasopharyngeal (03/13/2020 8:26 AM DRY CELL BATTERY ASSEMBLER) COVID-19 RNA Detected(A) [facility] Comment: Interpretive Data Testing performed by the [facility] Molecular Infectious Disease Laboratory. The 2018-Novel Coronavirus Assay (COVID-19) Real Time RT-PCR assay is for in vitro diagnostic use under FDA emergency use authorization only. A negative RT-PCR result does not preclude infection with COVID-19 and should not be used as the sole basis for treatment or other patient management decisions. Additional sample types have been validated according to CLIA regulations. ?? Current Interpretive Data was last revised on 2019. Influenza A RNA Not Detected [facility] Influenza B RNA Not Detected [facility] Comment: Interpretive Data Testing performed by the [facility] Molecular Infectious Disease Laboratory. This test is performed using the [employer]red Influenza A/B Assay. This is a real-time RT-PCR test for the qualitative detection of nucleic acid from Influenza A and Influenza B. This assay has been reviewed by the FDA for Emergency Use Authorization (EUA). The performance characteristics have been verified by the [facility] Laboratory. Results should be interpreted in combination with clinical context and a negative result does not rule out infection. ?? Interpretive data last revised 2020. Employeed in healthcare? 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 Unknown [facility] Group care resident? No KEYSHA BURK Hospitalized? No [facility] Is patient in ICU? No [facility] Symptomatic as defined by CDC? Yes [facility] Nasopharyngeal 03/13/2020 8: 26 AM DRY CELL BATTERY ASSEMBLER 03/13/2020 2:29 PM DRY CELL BATTERY ASSEMBLER Narrative [facility] - 03/14/2020 5:25 AM DRY CELL BATTERY ASSEMBLER Patient is employed by/enrolled at:->[employer] [facility] [employer] Date of symptom onset->03/10/20 us Tiera Hankins MD LAB MICROBIOLOGY - GENERAL ORDERABLES Final Result [facility] Department [place] [address] documented in this encounter Visit Diagnoses Diagnosis Cough documented in this encounter Additional Health Concerns Infection Onset Date Last Indicated Resolved Time COVID: Suspected 03/13/2020 03/13/2020 03/14/2020 5:26 AM DRY CELL BATTERY ASSEMBLER documented as of this encounter Care Teams Senior Civil Engineer Relationship Specialty Start Date End Date Bouchra Vickers MD [address] [address] PCP - General 01/18/19 documented as of this encounter
--- OUTSIDE RECORDS SUMMARY | 2024-04-02 18:40 | XMS_ITS | Encounter Summary ---
Author Organization [facility] Healthcare Address [address] [place] [address] Care Team Providers Care Supervisor Ship Maintenance Services Name Role Phone Unavailable Primary Care Provider Unavailabl e Encounter Details Date Type Department Care Team (Latest Contact Info) Description 11/01/2016 8:45 AM CDT Hospital Encounter [facility] OP Bouchra Vickers MD [address] [place], [place] [id number] Hypothyroidism; Family history of diabetes mellitus Social History Tobacco Use Types Packs/Day Years Used Date Smoking Tobacco: Never Comments Unknown Sex and Gender Information Value Date Recorded Sex Assigned at Not on file Legal Sex Female 10:19 AM EMPLOYMENT EVALUATOR/CASE MANAGER Gender Identity Not on file Sexual [...] Date/Time Associated Diagnosis Comments THYROID PANEL Routine 11/01/2016 8:59 AM CDT HEMOGLOBIN A1C Routine 11/01/2016 8:59 AM CDT documented in this encounter Results * Thyroid Panel (11/01/2016 8:59 AM CDT) TSH 0.69 0.27 - 4.20 uIU/mL 11/01/2016 9:53 AM CDT [facility] HISTORICAL RESULTS Free T4 1.03 0.93 - 1.70 ng/dL 11/01/2016 9:53 AM CDT [facility] HISTOR[facility] RESULTS 11/01/2016 8:59 AM CDT 11/01/2016 9:09 AM CDT Bouchra Vickers MD LAB BLOOD ORDERABLES Final Resul t Performing Organization Address City/[facility] Co de Phone Number [facility] HISTORICAL RESULTS * Hemoglobin A1c (11/01/2016 8:59 AM CDT) [facility] Signature Hemoglobin A1c % 5.5 4.8 - 5.9 % 11/01/2016 10:37 AM CDT [facility] HISTORICAL RESULTS Comment: [place] Diabetes Association recommends that the goal of therapy should be an A1C hemoglobin of <7%. Reevaluate the treatment regimen in patients with an A1C >8%. 11/01/2016 8:59 AM CDT 11/01/2016 9:09 AM CDT us Bouchra Vickers MD LAB BLOOD ORDERABLES Final Resul t [facility] HISTORICAL RESULTS documented in this encounter Visit Diagnoses Diagnosis Hypothyroidism Unspecified hypothyroidism Family history of diabetes mellitus documented in this encounter
--- OUTSIDE RECORDS SUMMARY | 2024-04-02 18:40 | XMS_ITS | Encounter Summary ---
Author Organization [facility] Healthcare Address [address] [place] [address] Care Team Providers Care Make Up Operator Helper Name Role Phone Unavailable Primary Care Provider Unavailabl e Encounter Details Date Type Department Care Team (Latest Contact Info) Description 05/04/2012 7:26 AM CORROSION PREVENTION METAL SPRAYER Hospital Encounter [facility] OP Bouchra Vickers MD [address] [place], [place] [id number] Hypoglycemia; Mitral valve disorder Social History Tobacco Use Types Packs/Day Years Used Date Smoking Tobacco: Never Assessed Comments Unknown Sex and Gender Information Value Date Recorded Sex Assigned at Not on file Legal Sex Female 10:19 AM CORROSION PREVENTION METAL SPRAYER Gender Identity Not on file Sexual Orientation [...] Diagnosis Comments CBC WITH AUTO DIFFERENTIAL Routine 05/04/2012 7:50 AM CORROSION PREVENTION METAL SPRAYER TSH Routine 05/04/2012 7:50 AM CORROSION PREVENTION METAL SPRAYER HEMOGLOBIN A1C Routine 05/04/2012 7:50 AM CORROSION PREVENTION METAL SPRAYER LIPID PANEL Routine 05/04/2012 7:50 AM CORROSION PREVENTION METAL SPRAYER BASIC METABOLIC PANEL Routine 05/04/2012 7:50 AM CORROSION PREVENTION METAL SPRAYER documented in this encounter Results * TSH (05/04/2012 7:50 AM CORROSION PREVENTION METAL SPRAYER) TSH 1.83 0.27 - 4.20 uIU/mL 05/04/2012 7:50 AM CORROSION PREVENTION METAL SPRAYER 05/04/2012 8:24 AM CORROSION PREVENTION METAL SPRAYER Bouchra Vickers MD LAB BLOOD ORDERABLES Final Resul t Performing Organization Address [facility]/ZIP Co de Phone Number [facility] HISTORICAL RESULTS * (ABNORMAL) Lipid panel (05/04/2012 7:50 AM CORROSION PREVENTION METAL SPRAYER) Pathologist [facility] Triglycerides 117 0 - 199 mg/dL Comment:12 hr pc highly travis mmended for Triglyceride Cholesterol 227(H) 0 - 199 mg/dL Comment: Borderline: ??200-239 High Risk: ?? >239 HDL Cholesterol 64(H) 40 - 60 mg/dL Comment: Major Risk ?< 40 mg/dL Moderate Risk ?40-60 mg/dL Negative Risk ?? > 60 mg/dL LDL Cholesterol, Calc 140(H) 0 - 130 mg/dL Comment:High Risk > 159 mg/d L 05/04/2012 7:50 AM CORROSION PREVENTION METAL SPRAYER 05/04/2012 8:24 AM CORROSION PREVENTION METAL SPRAYER Bouchra Vickers MD LAB BLOOD ORDERABLES Final Resul t [facility] HISTORICAL RESULTS * CBC with auto differential (05/04/2012 7:50 AM CORROSION PREVENTION METAL SPRAYER) WBC 4.9 4.6 - 10.2 x10 3/ul RBC 4.51 3.76 - 4.80 x10 6/ul 05/04/2012 8:30 AM [employer] [facility] HISTORICAL RESULTS Hemoglobin 13.6 11.0 - 15.0 g/dl 05/04/2012 8:30 AM [employer] [facility] HISTORICAL RESULTS Hct 40.3 33.0 - 43.0 % 05/04/2012 8:30 AM [employer] [facility] HISTORICAL RESULTS MCV 89.4 80.0 - 97.0 fl 05/04/2012 8:30 AM [employer] [facility] HISTORICAL RESULTS MCH 30.2 27.0 - 31.2 pg 05/04/2012 8:30 AM [facility] [facility] HISTORICAL RESULTS MCHC 33.7 31.8 - 35.4 g/dl 05/04/2012 8:30 AM [employer] [facility] HISTORICAL RESULTS RDW 12.3 11.6 - 14.8 % 05/04/2012 8:30 AM [employer] HISTORICAL RESULTS Plt Count 258 124 - 400 x10 3/ul 05/04/2012 8:30 AM [facility] HISTORICAL RESULTS MPV 10.1 7.4 - 10.4 fl 05/04/2012 8:30 AM [facility] [facility] HISTORICAL RESULTS Differential Method AUTOMATED DIFF --------- -- 05/04/2012 8:30 AM [facility] [employer] HISTORICAL RESULTS Neut % 56.3 37.0 - 85.0 % 05/04/2012 8:30 AM [employer] HISTORICAL RESULTS Immature Gran % 0.2 0.0 - 3.0 % 05/04/2012 8:30 AM [facility] HISTORICAL RESULTS Lymph % 32.4 5.0 - 45.0 % 05/04/2012 8:30 AM [facility] HISTORICAL RESULTS Hand % 6.6 3.0 - 15.0 % 05/04/2012 8:30 AM [facility] [facility] HISTORICAL RESULTS Eos % 3.1 0.0 - 7.0 % 05/04/2012 8:30 AM [facility] HISTORICAL RESULTS Baso % 1.4 0.0 - 2.0 % 05/04/2012 8:30 AM [facility] HISTORICAL RESULTS ABSOLUTE COUNTS ABSOLUTE COUNTS --------- -- 05/04/2012 8:30 AM [employer] HISTORICAL RESULTS Absolute Neuts (auto) 2.7 1.7 - 8.7 x10 3/ul 05/04/2012 8:30 AM [facility] HISTORICAL RESULTS Immature Gran # 0.0 0.0 - 0.3 x10 3/ul Absolute Lymphs (auto) 1.6 0.2 - 4.6 x10 3/ul 05/04/2012 8:30 AM CORROSION PREVENTION METAL SPRAYER [facility] HISTORICAL RESULTS Absolute Monos (auto) 0.3 0.1 - 1.5 x10 3/ul 05/04/2012 8:30 AM CORROSION PREVENTION METAL SPRAYER [facility] HISTORICAL RESULTS Absolute Eos (auto) 0.2 0.0 - 0.7 x10 3/ul 05/04/2012 8:30 AM [facility]OR[facility] RES[facility] Absolute Basos (auto) 0.1 0.0 - 0.2 x10 3/ul 05/04/2012 8:30 AM [facility] HISTORICAL RESULTS 05/04/2012 7:50 AM CORROSION PREVENTION METAL SPRAYER 05/04/2012 8:24 AM [facility] us Bouchra Vickers MD LAB BLOOD ORDERABLES Final Resul t [facility] HISTORICAL RESULTS * Basic metabolic panel (05/04/2012 7:50 AM CORROSION PREVENTION METAL SPRAYER) Sodium 136 135 - 145 mmol/L 05/04/2012 8:49 AM [facility] Potassium 3.8 3.3 - 5.1 mmol/L 05/04/2012 8:49 AM [facility] Chloride 100 96 - 108 mmol/L Carbon Dioxide 27 22 - 32 mmol/L 05/04/2012 8:49 AM [facility] HISTORICAL RESULTS Anion Gap 9 Glucose 97 70 - 110 mg/dL 05/04/2012 8:49 AM [facility] H[facility] RES[facility] BUN 12 6 - 20 mg/dL Creatinine 0.7 0.5 - 1.1 mg/dL Kidney Disease Stage > 90 mL/MIN Comment: NOTE; ??The GFR is an estimated value using the creatinine, sex, age, and race of the patient. THE ESTIMATED GFR IS VALIDATED FOR AGES 18-70 YEARS STAGE ?mL/Min ?DESCRIPTION ??1 ?90 mL/min or more ?Normal or elevated GFR ??2 ? 60-89 mL/min ?Mildly decreased GFR ??3 ? 30-59 mL/min ?Moderately decreased GFR ??4 ? 15-29 mL/min ?Severely decreased GFR ??5 ? <15 mL/min ? Kidney failure or on dialysis @ Calcium 2.40 2.15 - 2.55 mmol/L 05/04/2012 7:50 AM CORROSION PREVENTION METAL SPRAYER 05/04/2012 8:24 AM [facility] Bouchra Vickers MD LAB BLOOD ORDERABLES Final Resul t [facility] HISTORICAL RESULTS * Hemoglobin A1c (05/04/2012 7:50 AM CORROSION PREVENTION METAL SPRAYER) Hemoglobin A1c % 5.6 4.8 - 5.9 % Comment: As of 2010 Method: ??DIMA Gerardo 6000 using turbidometric inhibition immunoassay procedure. Results obtained are comparable to results obtained using previous methodology (HPLC). [place] Diabetes Association recommends that the goal of therapy should be an A1C hemoglobin of <7%. Reevaluate the treatment regimen in patients with an A1C >8%. 05/04/2012 7:50 AM CORROSION PREVENTION METAL SPRAYER 05/04/2012 8:24 AM CORROSION PREVENTION METAL SPRAYER us Bouchra Vickers MD LAB BLOOD ORDERABLES Final Resul t [facility] HISTORICAL RESULTS documented in this encounter Visit Diagnoses Diagnosis Hypoglycemia Hypoglycemia, unspecified Mitral valve disorder Mitral valve disorders documented in this encounter
--- OUTSIDE RECORDS SUMMARY | 2024-04-02 18:40 | XMS_ITS | Encounter Summary ---
Author Organization [facility] Healthcare Address [address] [place] [address] Care Team Providers Care Chinese Herbalist Name Role Phone Bouchra Vickers MD Primary Care Provider [phone] Encounter Details Date Type Department Care Team (Late st Contact Info) Description 04/22/2019 1:55 PM SLEEVE IRONER Hospital Encounter [facility] Bouchra Vickers MD [address] [address] Social History Tobacco Use Types Packs/Day Years Used Date Smoking Tobacco: Never Comments Unknown Sex and Gender Information Value Date Recorded Sex Assigned at Not on file Legal Sex Female 10:19 AM SLEEVE IRONER Gender Identity Not on file Sexual Orientation [...] Name Priority Date/Time Associated Diagnosis Comments XR WRIST RIGHT 3 OR MORE VIEWS 04/22/2019 1:58 PM SLEEVE IRONER documented in this encounter Results * XR Wrist Right 3 or More Views (04/22/2019 1:58 PM SLEEVE IRONER) Anatomical Region Laterality Modality Upper Extremities, Wrist Right Radiogr aphic Imaging 04/22/2019 3:02 PM SLEEVE IRONER Narrative 04/22/2019 3:04 PM SLEEVE IRONER Patient Name: OBI ELLIS ?Ordering Dr: Bouchra Vickers MD ?? D.O.B: 1965 ? Exam Date: 04/22/19 ?? 1358 ?? Age: 53 ?Sex: Female ? MR#: [id number] ?? Loc: ? RADIOLOGY REPORT ?? Order #[id number] ?? Radiology ? Wrist RT 3 View Min ? Signed ?? EXAM DESCRIPTION: ??Wrist RT 3 View Min ? REASON FOR STUDY: ??Right wrist pain status post ground level fall earlier ?? today. ? TECHNIQUE: ??Frontal, lateral, and oblique radiographic views acquired of the ?? right wrist. ? COMPARISON: ??None ? FINDINGS: ? BONES/JOINTS: No acute fracture, malalignment or osseous abnormalities.Joint ?? spaces are maintained. ? SOFT TISSUES: Unremarkable. ? OTHER: No other significant finding. ? IMPRESSION: ??No acute bony abnormality in the right wrist. ? THIS IS AN ELECTRONICALLY VERIFIED FINAL REPORT ?? 04/22/2019 3:04 PM - Electronically signed by Obi Miner M.D. ?? Obi Miner M.D. ? RB ?? D: ??04/22/2019 3:04 PM ?? T: ? Report ID: [id number] ?? Reading Location: ??[id number] ? REPORT ELECTRONICALLY SIGNED IN OTHER VENDOR SYSTEM ?? Resulting Agency Comment O Procedure Note Obi Miner MD - 04/22/2019 Patient Name: OBI ELLIS Dr: Bouchra Vickers MD D.O.B: 1965 Exam Date: 04/22/19 6669 Age: 53 Sex: Female MR#: [id number] [id number] Order #[id number] Radiology Wrist RT 3 View Min Signed EXAM DESCRIPTION: Wrist RT 3 View Min REASON FOR STUDY: Right wrist pain status post ground level fall earlier today. TECHNIQUE: Frontal, lateral, and oblique radiographic views acquired ofthe right wrist. COMPARISON: None FINDINGS: BONES/JOINTS: No acute fracture, malalignment or osseousabnormalities.Joint spaces are maintained. SOFT TISSUES: Unremarkable. OTHER: No other significant finding. IMPRESSION: No acute bony abnormality in the right wrist. THIS IS AN ELECTRONICALLY VERIFIED FINAL REPORT 04/22/2019 3:04 PM - Electronically signed by Obi Miner M.D. T: Report ID: [id number] Reading Location: [place] [address] REPORT ELECTRONICALLY SIGNED IN OTHER VENDOR SYSTEM Bouchra Vickers MD IMG XR PROCEDURES Final Result documented in this encounter Visit Diagnoses Not on filedocumented in this encounter Care Teams Chinese Herbalist Relationship Specialty Start Date End Date Bouchra Vickers MD [address] [address] PCP - General 01/18/19 documented as of this encounter
--- OUTSIDE RECORDS SUMMARY | 2024-04-02 18:40 | XMS_ITS | Encounter Summary ---
Author Organization [facility] Healthcare Address [address] [place] [address] Care Team Providers Care Recreational Assistant Name Role Phone Unavailable Primary Care Provider Unavailabl e Encounter Details Date Type Department Care Team (Latest Contact Info) Description 08/04/2012 11:04 AM CDT Hospital Encounter [facility] OP Praveen Marie MD [address] [facility] [address] [phone] Special screening for malignant neoplasms, vagina Social History Tobacco Use Types Packs/Day Years Used Date Smoking Tobacco: Never Assessed Comments Unknown Sex and Gender Information Value Date Recorded Sex Assigned at Not on file 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
--- OUTSIDE RECORDS SUMMARY | 2024-04-02 18:40 | XMS_ITS | Encounter Summary ---
Author Organization [facility] Healthcare Address [address] [place] [address] Care Team Providers Care Export Administrator Name Role Phone Bouchra Vickers MD Primary Care Provider [phone] Reason for Visit * Reason Onset Date Comments COVID-19 EVALUATION 03/13/2020 Encounter Details Date Type Department Care Team (Late st Contact Info) Description 03/13/2020 Telephone [facility]ly [facility] Occupatiuonal Health [address] [facility] Room 3420 (Third Floor) [place] [address] [place] [address] [place] [address] COVID-19 EVALUATION Social History Tobacco Use Types Packs/Day Years Used Date Smoking Tobacco: Never Comments Unknown Sex and Gender Information Value Date Recorded Sex Assigned at Not on file Legal Sex Female 10:19 AM WEBSITE OPTIMIZATION STRATEGIST Gender Identity Not on file Sexual Orientation Not on file documented as of this encounter Miscellaneous Notes * Addendum Note - Rico Richardson - 03/13/2020 1:24 PM CSTAddended by: RICO RICHARDSON on: 03/13/2020 01:24 PM Modules accepted: Orders ITE OPTIMIZATION STRATEGIST * Telephone Encounter - Mallorie Tan NP - 03/13/2020 8:08 AM WEBSITE OPTIMIZATION STRATEGIST Employee COVID-19 Screening 03/13/2020 Email: [email or web address] Employee/Student ID# [id number] Are you an employee or student? Employee Employer: [facility] Employee Facility: [facility] Does your job primarily involve providing care for bone marrow transplant patients? 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 On-site Have you been tested for Covid-19 previously? No Have you had a known, specific COVID exposure within the last 14 days? 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 Yes Date symptoms started: 03/10/2020 Date last worked: 03/10/2020 Do you currently live with, or have ongoing contact with, someone known or suspected to have COVID-19? No Exposure Risk (See Exposure Guide): No known or low risk exposure Assessment: Symptomatic, unknown exposure Plan: (A) Stay home and test for symptoms Testing Site Location: [facility] A0 (Stay home and test) for symptomatic employees with no known or low risk exposure Given your symptoms, you should not come to work and will be referred for testing for COVID and Influenza A and B. ??? Please go to the employee testing site at [facility]. ??? You will be tested for both COVID-19 and Influenza ??? While you are awaiting testing and [...] Occupational Health will notify you and your first assistant manager when you can return to work. ??? Should your test result positive, [facility] will work with you to identify any close contacts you may have had at work. [facility] will then alert your work contacts directly; you do not have to. Your radio time sales supervisor should consult with [facility] if they have any questions and before any communication with coworkers about a positive test. OH will help ensure that coworkers potentially at risk are notified and given appropriate advice without unnecessary disclosure of personal health information. ??? We will send you an email with self-quarantine instructions (see [facility] Guidance for At-Home Isolation: Employees). ??? You must follow any additional isolation or quarantine instructions provided to you from federal, state or local public health authorities. ??? You should let your radio time sales supervisor know that you will not be coming to work. Although the Call Center will email your radio time sales supervisor to confirm that you have been instructed not to come to work, it is still your responsibility to notify your radio time sales supervisor as you would for any other work absence. You should receive an email from the call center with these instructions. The email will come from [email or web address]; if you do not receive it, please check to see if your email sql server dba developer has automatically routed it to [employer]. ITE OPTIMIZATION STRATEGIST documented in this encounter Plan of Treatment Not on file documented as of this encounter Results * (ABNORMAL) Influenza A/B and COVID-19 PCR ([facility] ONLY) Nasopharyngeal (03/13/2020 8:26 AM WEBSITE OPTIMIZATION STRATEGIST) COVID-19 RNA Detected(A) [facility] Comment: Interpretive Data Testing performed by the [facility] Molecular Infectious Disease Laboratory. The [...] on 2019. Influenza A RNA Not Detected [facility] Influenza B RNA Not Detected [facility] Comment: Interpretive Data Testing performed by the [facility] Molecular Infectious Disease Laboratory. This test is performed using the mildred Influenza A/B Assay. This is a real-time RT-PCR test for the qualitative detection of nucleic acid from Influenza A and Influenza B. This assay has been reviewed by the FDA for Emergency Use Authorization (EUA). The performance characteristics have been verified by the [facility] Laboratory. Results should be interpreted in combination with clinical context and a negative result does not rule out infection. ?? Interpretive data last revised 2020. Employeed in healthcare? Yes [facility] status? Unknown [facility] Group care resident? No [facility] Hospitalized? No [facility] Is patient in ICU? No [facility] Symptomatic as defined by CDC? Yes [facility] Nasopharyngeal 03/13/2020 8: 26 AM WEBSITE OPTIMIZATION STRATEGIST 03/13/2020 2:29 PM WEBSITE OPTIMIZATION STRATEGIST Narrative [facility] - 03/14/2020 5:25 AM WEBSITE OPTIMIZATION STRATEGIST Patient is employed by/enrolled at:->[facility] Date of symptom onset->03/10/20 Tiera Hankins MD LAB MICROBIOLOGY - GENERAL ORDERABLES Final Result [facility] Department [place] [address] documented in this encounter Visit Diagnoses Diagnosis Cough- Primary Cough documented in this encounter Additional Health Concerns Infection Onset Date Last Indicated Resolved Time COVID: Suspected 03/13/2020 03/13/2020 03/14/2020 5:26 AM WEBSITE OPTIMIZATION STRATEGIST documented as of this encounter Care Teams Export Administrator Relationship Specialty Start Date End Date Bouchra Vickers MD [address] [address] PCP - General 01/18/19 documented as of this encounter
--- OUTSIDE RECORDS SUMMARY | 2024-04-02 18:40 | XMS_ITS | Encounter Summary ---
Author Organization [facility] Healthcare Address [address] [place] [address] Care Team Providers Care Founder And Chief Technical Officer Name Role Phone Unavailable Primary Care Provider Unavailabl e Encounter Details Date Type Department Care Team (Latest Contact Info) Description 11/09/2014 4:48 PM CDT Hospital Encounter [facility] OP Bouchra Vickers MD [address] [place] [address] Pain in joint, hand; Localized osteoarthrosis, hand Social History Tobacco Use Types Packs/Day Years Used Date Smoking Tobacco: Never Comments Unknown Sex and Gender Information Value Date Recorded Sex Assigned at Not on file 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 THIS IS AN ELECTRONICALLY VERIFIED REPORT 11/10/2014 4:24 PM: ??Chidi Geiger M.D. Chidi Geiger M.D. CH:aaliyah 08:59 AM 04:20 PM [facility] [EOD] Narrative 11/10/2014 4:27 PM CDT EXAMINATION: ??Left hand series. HISTORY: ??Joint pain, second digit. TECHNIQUE: ??Frontal and lateral radiographs left hand. COMPARISON: ??None. FINDINGS: ??No acute fracture is seen. ??Very minimal joint space narrowing of the distal interphalangeal joints. ??Radiocarpal alignment appears maintained. ?? No aggressive osseous lesions. Procedure Note Provider, MD Blessing - 08/14/2020 EXAMINATION: Left hand series. HISTORY: Joint pain, second digit. TECHNIQUE: Frontal and lateral radiographs left hand. COMPARISON: None. FINDINGS: No acute fracture is seen. Very minimal joint space narrowingof the distal interphalangeal joints. Radiocarpal alignment appearsmaintained. No aggressive osseous lesions. IMPRESSION: Minimal osteoarthritic change of the distal interphalangeal joints with no acute osseous abnormality. THIS IS AN ELECTRONICALLY VERIFIED REPORT 11/10/2014 4:24 PM: Chidi Geiger M.D. Chidi Geiger M.D. CH:aaliyah 08:59 AM 04:20 PM [facility] [EOD] Bouchra Vickers MD IMG XR PROCEDURES Final Result documented in this encounter Visit Diagnoses Diagnosis Pain in joint, hand Localized osteoarthrosis, hand Localized osteoarthrosis not specified whether primary or secondary, hand documented in this encounter
--- OUTSIDE RECORDS SUMMARY | 2024-04-02 18:40 | XMS_ITS | Encounter Summary ---
Author Organization [facility] Facility Care Team Providers Care Research And Development Director Name Role Phone Unavailable Primary Care Provider Unavailabl e Encounter Details Date Type Department Care Team (Late st Contact Info) Description 12/11/2010 9:27 AM CDT - 12/13/2010 6:22 PM CDT Hospital Encounter [facility] Demetry, Subha Rocha MD [address] [place] [address] Other pancreatic disorder; Other specified disorders of biliary tract; Mitral valve disorder; Esophageal reflux; Irritable colon; Diverticulosis of colon; Restless legs syndrome; Migraine Social History Tobacco Use Types Packs/Day Years Used Date Smoking Tobacco: Never Assessed Comments Unknown Sex and Gender Information Value Date Recorded Sex Assigned at Not on file Legal Sex Female 10:19 AM PHARMACY CLERK Gender Identity Not on file Sexual Orientation Not on file documented as of this encounter Plan of Treatment Not on file documented as of this encounter Visit Diagnoses Diagnosis Other pancreatic disorder Other specified disorders of biliary tract Mitral valve disorder Mitral valve disorders Esophageal reflux Irritable colon Diverticulosis of colon Diverticulosis of colon (without mention of hemorrhage) Restless legs syndrome Restless legs syndrome (RLS) Migraine Migraine, unspecified, without mention of intractable migraine without mention of status migrainosus documented in this encounter
--- OUTSIDE RECORDS SUMMARY | 2024-04-02 18:40 | XMS_ITS | Encounter Summary ---
Author Organization [facility] Healthcare Address [address] [place] [address] Care Team Providers Care Application Security Specialist Name Role Phone Unavailable Primary Care Provider Unavailabl e Encounter Details Date Type Department Care Team (Latest Contact Info) Description 11/03/2017 9:11 AM CDT Hospital Encounter [facility] OP Bouchra Vickers MD [address] [place], [place] [id number] Hypothyroidism; Hyperkalemia Social History Tobacco Use Types Packs/Day Years Used Date Smoking Tobacco: Never Comments Unknown Sex and Gender Information Value Date Recorded Sex Assigned at Not on file 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 HISTORICAL RESULTS Free T4 0.95 0.93 - 1.70 ng/dL 11/03/2017 10:59 AM CDT [facility] HISTORICAL RESULTS 11/03/2017 9:37 AM CDT 11/03/2017 10:28 AM CDT Bouchra Vickers MD LAB BLOOD ORDERABLES Final Resul t Performing Organization Address City/[facility] Co de Phone Number [facility] HISTORICAL RESULTS * Potassium (11/03/2017 9:37 AM CDT) [facility] Potassium 3.9 3.3 - 5.1 mmol/L 11/03/2017 10:52 AM CDT [facility] HISTORICAL RESULTS 11/03/2017 9:37 AM CDT 11/03/2017 10:28 AM CDT Bouchra Vickers MD LAB BLOOD ORDERABLES Final Resul t Performing Organization Address City/State/[facility] Co de Phone Number [facility] HISTORICAL RESULTS documented in this encounter Visit Diagnoses Diagnosis Hypothyroidism Unspecified hypothyroidism Hyperkalemia Hyperpotassemia documented in this encounter
--- OUTSIDE RECORDS SUMMARY | 2024-04-02 18:40 | XMS_ITS | Encounter Summary ---
Author Organization [facility] Healthcare Address [address] [place] [address] Care Team Providers Care Outside Dealer Sales Representative Name Role Phone Bouchra Vickers MD Primary Care Provider [phone] Encounter Details Date Type Department Care Team (Late st Contact Info) Description 09/28/2019 6:48 AM CDT Hospital Encounter [facility] Bouchra Vickers MD [address] [place] [address] Social History Tobacco Use Types Packs/Day Years Used Date Smoking Tobacco: Never Comments Unknown Sex and Gender Information Value Date Recorded Sex Assigned at Not on file Legal Sex Female 10:19 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 Gender Identity Not on file Sexual [...] Diagnosis Comments CBC WITH AUTO DIFFERENTIAL Routine 09/28/2019 7:13 AM CDT ERYTHROCYTE SEDIMENTATION RATE Routine 09/28/2019 7:13 AM CDT CRP (ACUTE PHASE) Routine 09/28/2019 7:1 3 AM CDT URIC ACID Routine 09/28/2019 7:13 AM CDT TSH Routine 09/28/2019 7:13 AM CDT LIPID PANEL Routine 09/28/2019 7:13 AM CDT COMPREHENSIVE METABOLIC PANEL Routine 09/28/2019 7:13 AM CDT documented in this encounter Results * TSH (09/28/2019 7:13 AM CDT) TSH 1.500 0.27 - 4.20 uIU/mL [facility] 09/28/2019 7:13 AM CDT 09/28/2019 7:36 AM CDT Narrative Resulting Agency Comment CLI Bouchra Vickers MD LAB BLOOD ORDERABLES Final Resul t Performing Organization Address City/[facility] Co de Phone Number [address] [phone] * CRP (acute phase) (09/28/2019 7:13 AM CDT) C-Reactive Protein 0.9 0.0 - 10.0 mg/L [facility] 09/28/2019 7:13 AM CDT 09/28/2019 7:36 AM CDT Narrative Resulting Agency Comment CLI Bouchra Vickers MD LAB BLOOD ORDERABLES Final Resul t [address] [phone] * Uric acid (09/28/2019 7:13 AM CDT) Uric Acid 3.4 2.5 - 7.0 mg/dL [facility] 09/28/2019 7:13 AM CDT 09/28/2019 7:36 AM CDT Narrative Resulting Agency Comment CLI Bouchra Vickers MD LAB BLOOD ORDERABLES Final Resul t Performing Organization Address City/[facility]/ZIP Co de Phone Number [facility] [address] [place] [address], [facility] [phone] * (ABNORMAL) Lipid panel (09/28/2019 7:13 AM CDT) Triglycerides 75 0 - 149 mg/dL [facility] Comment: National Lipid Association/NCEP Guidelines: ?? Normal ?< 150 mg/dL ?? Borderline high ?? 150-199 mg/dL ?? High ?200-499 mg/dL ?? Very High ? >=500 mg/dL Cholesterol 215(H) 0 - 199 mg/dL [facility] Comment: National Lipid Association/NCEP Guidelines: Desirable ? < 200 mg/dL Borderline high: ??200-239 mg/dL High Risk: ?>=240 mg/dL HDL Cholesterol 69 mg/dL [facility] Comment: Reference Ranges: ? Males: >=40 mg/dL ? Females: >=50 mg/dL LDL Cholesterol, Calc 131(H) 0 - 129 mg/dL [facility] Comment: National Lipid Association/NCEP Guidelines: ??Optimal ? < 100 mg/dL ??Near Optimal ?100-129 mg/dL ??Borderline high 130-159 mg/dL ??High ?>=160 mg/dL Cholesterol/HDL Ratio 3.1 [facility] Comment: Optimal ??< 3.5:1 High ? > 5:1 09/28/2019 7:13 AM CDT 09/28/2019 7:36 AM CDT Narrative Resulting Agency Comment CLI us Bouchra Vickers MD LAB BLOOD ORDERABLES Final Resul t [facility] [address] [place] [address], [facility] [phone] * Comprehensive metabolic panel (09/28/2019 7:13 AM CDT) [facility] Sodium 139 135 - 145 mmol/L [facility] Potassium 3.8 3.3 - 5.1 mmol/L [facility] Chloride 101 96 - 108 mmol/L [facility] Carbon Dioxide 30 22 - 32 mmol/L [facility] Anion Gap 8 7 - 16 [facility] Glucose 97 70 - 100 mg/dL [facility] BUN 8 8 - 25 mg/dL [facility] Creatinine 0.7 0.5 - 1.1 mg/dL [facility] Comment: NOTE: Estimated GFR (Cockroft-Gault) will NOT be calculated unless patient Height and Weight were entered. Also, Kidney Disease Stage (GFR) and Estimated GFR (Cockroft-Gault) will NOT be calculated if Creatinine result is <0.2. Kidney Disease Stage >90 mL/MIN [facility] Comment: NOTE; ??The GFR is an estimated [...] mL/min ? Kidney failure or on dialysis Calcium 9.6 8.6 - 10.3 mg/dL [facility] Total Protein 6.8 6.4 - 8.3 g/dL [facility] Albumin 4.3 3.5 - 5.0 g/dL [facility] Globulin 2.5 2.3 - 3.5 gm/dL [facility] Albumin/Globulin Ratio 1.7 1.1 - 1.8 [facility] Total Bilirubin 0.3 0.0 - 1.2 mg/dL [facility] AST 12 0 - 32 U/L [facility] ALT 8 0 - 33 U/L [facility] Alkaline Phosphatase 53 35 - 104 U/L [facility] 09/28/2019 7:13 AM CDT 09/28/2019 7:36 AM CDT Narrative Resulting Agency Comment CLI Bouchra Vickers MD LAB BLOOD ORDERABLES Final Resul t Performing Organization Address City/[facility]/ZIP Co de Phone Number [address] [phone] * Erythrocyte sedimentation rate (09/28/2019 7:13 AM CDT) ESR 4 1 - 30 mm/hr [facility] 09/28/2019 7:13 AM CDT 09/28/2019 7:36 AM CDT Narrative Resulting Agency Comment CLI Bouchra Vickers MD LAB BLOOD ORDERABLES Final Resul t [address] [phone] * CBC with auto differential (09/28/2019 7:13 AM CDT) WBC 6.3 3.8 - 9.9 X10 3/ul [facility] RBC 4.20 3.90 - 5.20 x10 6/ul [facility] Hemoglobin 12.5 11.9 - 15.5 g/dL [facility] Hct 38.0 35.6 - 45.5 % [facility] MCV 90.5 81.3 - 96.4 fl [facility] MCH 29.8 27.1 - 33.3 pg [facility] MCHC 32.9 32.3 - 35.7 g/dl [facility] RDW 12.6 11.1 - 14.9 % [facility] Plt Count 220 150 - 400 x10 3/ul [facility] MPV 9.9 9.1 - 12.3 fl [facility] Neut % 61.6 % [facility] Immature Gran % 0.3 % [facility] Lymph % 23.8 % [facility] [place] % 8.9 % [facility] Eos % 4.0 % [facility] AUTO BASO % 1.4 % [facility] NEUTROPHIL ABS # 3.9 1.7 - 6.5 x10 3/ul [facility] Immature Gran # 0.0 0.0 - 0.1 x10 3/ul [facility] Absolute Lymphs (auto) 1.5 0.8 - 3.3 x10 3/ul [facility] Absolute Monos (auto) 0.6 0.2 - 0.8 x10 3/ul [facility] Absolute Eos (auto) 0.3 0.0 - 0.5 x10 3/ul [facility] BASOPHIL ABS # 0.1 0.0 - 0.1 x10 3/ul [facility] Nucleat RBC Rel Count 0.0 #/100WBC [facility] NRBC abs 0.00 0.00 - 0.01 x10 3/ul [facility] Absolute Neutrophils 3,900 200 - 8,000 /ul [facility] 09/28/2019 7:13 AM CDT 09/28/2019 7:36 AM CDT Narrative Resulting Agency Comment CLI Bouchra Vickers MD LAB BLOOD ORDERABLES Final Resul t [place] [id number] [address] [phone] documented in this encounter Visit Diagnoses Not on filedocumented in this encounter Care Teams Outside Dealer Sales Representative Relationship Specialty Start Date End Date Bouchra Vickers MD [address] [address] PCP - General 01/18/19 documented as of this encounter
--- OUTSIDE RECORDS SUMMARY | 2024-04-02 18:40 | XMS_ITS | Encounter Summary ---
Author Organization [facility] Healthcare Address [address] [place] [address] Care Team Providers Care Provider Network Mgr Name Role Phone Bouchra Vickers MD Primary Care Provider [phone] Encounter Details Date Type Department Care Team (Late st Contact Info) Description 05/18/2019 3:10 PM ACTING INSTRUCTOR Hospital Encounter [facility]IM Bouchra Vickers MD [address] [place] [address] Social History Tobacco Use Types Packs/Day Years Used Date Smoking Tobacco: Never Comments Unknown Sex and Gender Information Value Date Recorded Sex Assigned at Not on file Legal Sex Female 10:19 AM ACTING INSTRUCTOR Gender Identity Not on file Sexual [...] Priority Date/Time Associated Diagnosis Comments XR HAND RIGHT 3 OR MORE VIEWS 05/18/2019 3:12 PM ACTING INSTRUCTOR documented in this encounter Results * XR Hand Right 3 or More Views (05/18/2019 3:12 PM ACTING INSTRUCTOR) Anatomical Region Laterality Modality Upper Extremities, Hand Right Radiogra phic Imaging 05/20/2019 3:28 PM ACTING INSTRUCTOR Narrative 05/20/2019 3:31 PM ACTING INSTRUCTOR Patient Name: OBI ELLIS ?Ordering Dr: Bouchra Vickers MD ?? D.O.B: 1965 ? Exam Date: 05/18/19 ?? 1512 ?? Age: 53 ?Sex: Female ? MR#: [id number] ?? Loc: ? RADIOLOGY REPORT ?? Order #[id number] ?? Radiology ? Hand Right 3 View Min ? Signed ?? EXAM DESCRIPTION: ??Hand Right 3 View Min ? REASON FOR STUDY: ??Right hand pain and swelling since fall 1 month ago. ? TECHNIQUE: ??Frontal, lateral, and oblique radiographic views acquired of the ?? right hand. ? COMPARISON: ??Right wrist radiographs 04/22/2019 ? FINDINGS: ? BONES/JOINTS: There is no acute fracture or dislocation. ??No osseous erosion ?? 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 ? SOFT TISSUES: Unremarkable. ? OTHER: No other significant finding. ? IMPRESSION: ??No acute osseous abnormality. ? THIS IS AN ELECTRONICALLY VERIFIED FINAL REPORT ?? 05/20/2019 3:31 PM - Electronically signed by Ej Perdomo M.D. ?? Ej Perdomo M.D. ? MD ?? D: ??05/20/2019 3:31 PM ?? T: ? Report ID: [id number] ?? Reading Location: ??[id number] ? REPORT ELECTRONICALLY SIGNED IN OTHER VENDOR SYSTEM ?? Resulting Agency Comment O Procedure Note Ej Perdomo MD - 05/20/2019 Patient Name: OBI ELLIS Dr: Bouchra Vickers MDO.B: 1965 Exam Date: 05/18/191511 Age: 53 Sex: Female MR#: [id number] Loc: RADIOLOGY REPORT Order #[id number] Radiology Hand Right 3 View Min Signed EXAM DESCRIPTION: Hand Right 3 View Min REASON FOR STUDY: Right hand pain and swelling since fall 1 month ago. TECHNIQUE: Frontal, lateral, and oblique radiographic views acquired ofthe right hand. COMPARISON: Right wrist radiographs 04/22/2019 FINDINGS: BONES/JOINTS: There is no acute fracture or dislocation. No osseouserosion or suspicious bone lesion is identified.Mild osteoarthritic change at the2nd distal interphalangeal joint. SOFT TISSUES: Unremarkable. OTHER: No other significant finding. IMPRESSION: No acute osseous abnormality. THIS IS AN ELECTRONICALLY VERIFIED FINAL REPORT 05/20/2019 3:31 PM - Electronically signed by Ej Perdomo M.D., MD T: Report ID: [id number] Reading Location: [place] [address] REPORT ELECTRONICALLY SIGNED IN OTHER VENDOR SYSTEM Bouchra Vickers MD IMG XR PROCEDURES Final Result documented in this encounter Visit Diagnoses Not on filedocumented in this encounter Care Teams Provider Network Mgr Relationship Specialty Start Date End Date Bouchra Vickers MD [address] [address] PCP - General 01/18/19 documented as of this encounter
--- OUTSIDE RECORDS SUMMARY | 2024-04-02 18:40 | XMS_ITS | Encounter Summary ---
Author Organization [facility] Healthcare Address [address] [place] [address] Care Team Providers Care Wage And Hour Investigator Name Role Phone Unavailable Primary Care Provider Unavailabl e Encounter Details Date Type Department Care Team (Latest Contact Info) Description 10/30/2015 7:25 AM CDT Hospital Encounter [facility] OP Bouchra Vickers MD [address] [place], [place] [id number] Other rheumatic mitral valve diseases; Other specified hypothyroidism Social History Tobacco Use Types Packs/Day Years Used Date Smoking Tobacco: Never Comments Unknown Sex and Gender Information Value Date Recorded Sex Assigned at Not on file Legal Sex Female 10:19 AM 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 HISTORICAL RESULTS Free T4 0.96 0.93 - 1.70 ng/dL 10/30/2015 8:18 AM T [facility] HISTORICAL RESULTS 10/30/2015 7:38 AM CDT 10/30/2015 7:44 AM CDT us Bouchra Vickers MD LAB BLOOD ORDERABLES Final Resul t [facility] HISTORICAL RESULTS * (ABNORMAL) Lipid panel (10/30/2015 7:38 AM CDT) Triglycerides 95 0 - 199 mg/dL Comment:12 hr pc highly travis mmended for Triglyceride Cholesterol 212(H) 0 - 199 mg/dL Comment: Borderline: ??200-239 High Risk: ?? >239 HDL Cholesterol 66(H) 40 - 60 mg/dL Comment: Major Risk ?< 40 mg/dL Moderate Risk ?40-60 mg/dL Negative Risk ?? > 60 mg/dL LDL Cholesterol, Calc 127 0 - 130 mg/dL 10/30/2015 8:09 AM T [facility] HISTORICAL RESULTS Comment:High Risk > 159 mg/d L Cholesterol/HDL Ratio 3.2 Comment: Cholesterol / HDL Ratio 3.5:1 or less is desirable. Cholesterol / HDL Ratio greater than 5:1 is considered higher risk for developing heart disease. 10/30/2015 7:38 AM CDT 10/30/2015 7:44 AM CDT Narrative [facility] HISTORICAL RESULTS - 10/30/2015 8:09 AM CDT Comment 1 hr pc ?? Comment 12 hrs pc us Bouchra Vickers MD LAB BLOOD ORDERABLES Final Resul t [facility] [employer] HISTORICAL RESULTS * CBC with auto differential (10/30/2015 7:38 AM CDT) WBC 4.9 4.6 - 10.2 x10 3/ul 10/30/2015 7:47 AM CDT [employer] HISTORICAL RESULTS RBC 4.24 3.76 - 4.80 x10 6/ul 10/30/2015 7:47 AM CDT [employer] HISTORICAL RESULTS Hemoglobin 13.2 11.0 - 15.0 g/dl 10/30/2015 7:47 AM CDT [employer] HISTORICAL RESULTS Hct 37.8 33.0 - 43.0 % 10/30/2015 7:47 AM CDT [employer] HISTORICAL RESULTS MCV 89.2 80.0 - 97.0 fl 10/30/2015 7:47 AM CDT [employer] HISTORICAL RESULTS MCH 31.1 27.0 - 31.2 pg 10/30/2015 7:47 AM CDT [employer] HISTORICAL RESULTS MCHC 34.9 31.8 - 35.4 g/dl 10/30/2015 7:47 AM CDT [employer] HISTORICAL RESULTS RDW 12.3 11.6 - 14.8 % 10/30/2015 7:47 AM CDT [employer] HISTORICAL RESULTS Plt Count 204 124 - 400 x10 3/ul 10/30/2015 7:47 AM CDT [employer] HISTORICAL RESULTS MPV 10.1 7.4 - 10.4 fl 10/30/2015 7:47 AM CDT [employer] HISTORICAL RESULTS Neut % 55.4 37.0 - 85.0 % 10/30/2015 7:47 AM CDT [employer] HISTORICAL RESULTS Immature Gran % 0.2 0.0 - 3.0 % 10/30/2015 7:47 AM CDT [facility] [employer] HISTORICAL RESULTS Lymph % 32.1 5.0 - 45.0 % 10/30/2015 7:47 AM CDT [facility] [employer] HISTORICAL RESULTS [place] % 8.0 3.0 - 15.0 % 10/30/2015 7:47 AM CDT [employer] HISTORICAL RESULTS Eos % 3.3 0.0 - 7.0 % 10/30/2015 7:47 AM CDT [facility] HISTORICAL RESULTS Baso % 1.0 0.0 - 2.0 % 10/30/2015 7:47 AM CDT [facility] HISTORICAL RESULTS Absolute Neuts (auto) 2.7 1.7 - 8.7 x10 3/ul 10/30/2015 7:47 AM T [facility] HISTORICAL RESULTS Immature Gran # 0.0 0.0 - 0.3 x10 3/ul 10/30/2015 7:47 AM T [facility] HISTORICAL RESULTS Absolute Lymphs (auto) 1.6 0.2 - 4.6 x10 3/ul 10/30/2015 7:47 AM T [facility] HISTORICAL RESULTS Absolute Monos (auto) 0.4 0.1 - 1.5 x10 3/ul 10/30/2015 7:47 AM T [facility] HISTORICAL RESULTS Absolute Eos (auto) 0.2 0.0 - 0.7 x10 3/ul 10/30/2015 7:47 AM T [facility] HISTORICAL RESULTS Absolute Basos (auto) 0.1 0.0 - 0.2 x10 3/ul 10/30/2015 7:47 AM T [facility] HISTORICAL RESULTS 10/30/2015 7:38 AM CDT 10/30/2015 7:44 AM CDT Bouchra Vickers MD LAB BLOOD ORDERABLES Final Resul t [facility] HISTORICAL RESULTS * Basic metabolic panel (10/30/2015 7:38 AM CDT) Sodium 139 135 - 145 mmol/L 10/30/2015 8:09 AM T [facility] HISTORICAL RESULTS Potassium 3.9 3.3 - 5.1 mmol/L 10/30/2015 8:09 AM T [facility] HISTORICAL RESULTS Chloride 100 96 - 108 mmol/L 10/30/2015 8:09 AM T [facility] HISTORICAL RESULTS Carbon Dioxide 26 22 - 32 mmol/L 10/30/2015 8:09 AM T [facility] HISTORICAL RESULTS Anion Gap 13 7 - 16 Glucose 96 70 - 100 mg/dL BUN 11 6 - 20 mg/dL Creatinine 0.6 0.5 - 1.1 mg/dL Comment: NOTE: Estimated GFR (Cockroft-Gault) will NOT be calculated unless patient Height and Weight were entered. Also, Kidney Disease Stage (GFR) and Estimated GFR (Cockroft-Gault) will NOT be calculated if Creatinine result is <0.2. Kidney Disease Stage > 90 mL/MIN Comment: [...] Kidney failure or on dialysis @ Calcium 9.6 8.6 - 10.0 mg/dL 10/30/2015 7:38 AM T 10/30/2015 7:44 AM [facility] HISTORICAL RESULTS - 10/30/2015 8:09 AM CDT Comment 1 hr pc ?? Comment 12 hrs pc us Bouchra Vickers MD LAB BLOOD ORDERABLES Final Resul t [facility] HISTORICAL RESULTS documented in this encounter Visit Diagnoses Diagnosis Other rheumatic mitral valve diseases Other specified hypothyroidism documented in this encounter
--- OUTSIDE RECORDS SUMMARY | 2024-04-02 18:40 | XMS_ITS | Encounter Summary ---
Author Organization [facility] Healthcare Address [address] [place] [address] Care Team Providers Care Tufting Machine Operator Single Needle Name Role Phone Unavailable Primary Care Provider Unavailabl e Encounter Details Date Type Department Care Team (Latest Contact Info) Description 04/28/2015 12:25 PM ELECTRONIC GLUING MACHINE OPERATOR Hospital Encounter [facility] OP Bouchra Vickers MD [address] [place], [place] [id number] Other specified hypothyroidism Social History Tobacco Use Types Packs/Day Years Used Date Smoking Tobacco: Never Comments Unknown Sex and Gender Information Value Date Recorded Sex Assigned at Not on file Legal Sex Female 10:19 AM ELECTRONIC GLUING MACHINE OPERATOR Gender Identity Not on file Sexual [...] Priority Date/Time Associated Diagnosis Comments TSH Routine 04/28/2015 1:13 PM ELECTRONIC GLUING MACHINE OPERATOR documented in this encounter Results * TSH (04/28/2015 1:13 PM ELECTRONIC GLUING MACHINE OPERATOR) TSH 0.43 0.27 - 4.20 uIU/mL 04/28/2015 2:09 PM ELECTRONIC GLUING MACHINE OPERATOR [facility] [place] [place] [place] 04/28/2015 1:13 PM ELECTRONIC GLUING MACHINE OPERATOR 04/28/2015 1:23 PM ELECTRONIC GLUING MACHINE OPERATOR us Bouchra Vickers MD LAB BLOOD ORDERABLES Final Resul t [facility] [place] documented in this encounter Visit Diagnoses Diagnosis Other specified hypothyroidism documented in this encounter
--- OUTSIDE RECORDS SUMMARY | 2024-04-02 18:40 | XMS_ITS | Encounter Summary ---
Author Organization [facility] Care Team Providers Care Formula Room Worker Name Role Phone Bouchra Vickers MD Primary Care Provider [phone] Sultan Elvin Mccartney MD Unavailable [phone] Donte Campuzano MD Unavailable [phone] Encounter Details Date Type Department Care Team (Latest Contact Info) Description 12/06/2015 Orders Only [facility] ProviderBlessing MD [address] [place] [id number] Social History Tobacco Use Types Packs/Day Years Used Date Smoking Tobacco: Never Comments Unknown Sex and Gender Information Value Date Recorded Sex Assigned at Not on file Legal Sex Female 10:19 AM MEDICAID BILLER Gender Identity Not on file Sexual Orientation Not on file documented as of this encounter Plan of Treatment Not on file documented as of this encounter Procedures Procedure Name Priority Date/Time Associated Diagnosis Comments SCAN - LABS 12/06/2015 12:00 AM CDT documented in this encounter Results * SCAN - LABS (12/06/2015 12:00 AM CDT) Narrative 12/06/2015 12:00 AM CDT Ordered by an unspecified provider. Historical Provider Final Res ult documented in this encounter Visit Diagnoses Not on filedocumented in this encounter Additional Health Concerns Infection Onset Date Last Indicated Resolved Time COVID: Suspected 03/13/2020 03/13/2020 03/14/2020 5:26 AM MEDICAID BILLER COVID19 03/13/2020 03/13/2020 03/27/2020 3:07 AM MEDICAID BILLER COVID: Suspected 03/09/2021 03/09/2021 03/10/2021 3:52 AM MEDICAID BILLER COVID: Suspected 04/13/2021 04/13/2021 04/13/2021 11:35 PM MEDICAID BILLER COVID19 04/13/2021 04/13/2021 04/23/2021 3:05 AM MEDICAID BILLER COVID: Recovered Comment:Added based on recent COVID infection. 04/23/2021 04/27/2021 08/21/2021 3:07 AM C DT COVID: Suspected 05/18/2022 05/18/2022 05/18/2022 9:56 PM MEDICAID BILLER documented as of this encounter Care Teams Formula Room Worker Relationship Specialty Start Date End Date Bouchra Vickers MD [address] [address] PCP - General 01/18/19 Sultan Elvin Mccartney MD [address] [place] [address] [address] Consulting Physician Cardiovascular Disease 05/22/22 Donte Campuzano MD [address] [place] [address] [place] [id number] Consulting Physician Pulmonary Disease 05/22/22 documented as of this encounter
--- OUTSIDE RECORDS SUMMARY | 2024-04-02 18:40 | XMS_ITS | Encounter Summary ---
Author Organization [facility] Healthcare Address [address] [place] [address] Care Team Providers Care Territory Supervisor Name Role Phone Unavailable Primary Care Provider Unavailabl e Encounter Details Date Type Department Care Team (Latest Contact Info) Description 11/09/2014 6:32 AM CDT Hospital Encounter [facility] OP Bouchra Vickers MD [address] [place], [place] [id number] Other and unspecified mitral valve diseases; Slow transit constipation; Other sleep disturbances; Pain in joint, hand Social History Tobacco Use Types Packs/Day Years Used Date Smoking Tobacco: Never Comments Unknown Sex and Gender Information Value Date Recorded Sex Assigned at Not on file Legal Sex Female 10:19 AM LAUNDRY OPERATOR FINISHING Gender Identity Not on file Sexual Orientation [...] Name Priority Date/Time Associated Diagnosis Comments MARTIN BY IFA,IGG Routine 11/09/2014 8:20 AM CDT THYROID PANEL Routine 11/09/2014 8:20 AM CDT CBC WITH AUTO DIFFERENTIAL Routine 11/09/2014 8:20 AM CDT VITAMIN D 25 HYDROXY Routine 11/09/2014 8:20 AM CDT RHEUMATOID FACTOR Routine 11/09/2014 8:2 0 AM CDT CRP (ACUTE PHASE) Routine 11/09/2014 8:2 0 AM CDT CREATINE KINASE (CK), TOTAL Routine 11/09/2014 8:20 AM CDT LIPID PANEL Routine 11/09/2014 8:20 AM CDT BASIC METABOLIC PANEL Routine 11/09/2014 8:20 AM CDT documented in this encounter Results * Vitamin D 25 hydroxy (11/09/2014 8:20 AM CDT) [facility] 25-OH Vitamin D Total 30 30 - 100 ng/mL Comment: ??Use caution when comparing results from different ? methodologies and/or manufacturers. ? METHOD: [employer] Chemiluminescent technology TEST INFORMATION: Vitamin D, 25 Hydroxy This assay accurately quantifies the sum of vitamin D3, 25-hydroxy and vitamin D2, 25-hydroxy. REFERENCE RANGES: ?Deficiency: ? < 20 ng/mL ?Insufficiency: ? 20-29 ng/mL ?Optimum level: ?30-100 ng/mL ?Possible toxicity: ?>100 ng/mL No pediatric reference range established. A reagent standardization change will result in the following result differences when compared to results obtained prior to April 14, 2014. ?On results < 15 ng/mL ?? = -1.5 ng/mL ?15-30 ng/mL ?? = +2.1 ng/mL ?30-50 ng/mL ?? = -1.2 ng/mL ? > 50 ng/mL ?? = -10.0 ng/mL 11/09/2014 8:20 AM CDT 11/09/2014 9:21 AM CDT Bouchra Vickers MD LAB BLOOD ORDERABLES Final Resul t Performing Organization Address [facility] de Phone Number [facility] HISTORICAL RESULTS * (ABNORMAL) Thyroid Panel (11/09/2014 8:20 AM CDT) TSH 1.44 0.27 - 4.20 uIU/mL Free T4 0.87(L) 0.93 - 1.70 ng/dL 11/09/2014 8:20 AM CDT 11/09/2014 9:21 AM CDT Bouchra Vickers MD LAB BLOOD ORDERABLES Final Resul t Performing Organization Address [facility] de Phone Number [facility] HISTORICAL RESULTS * Rheumatoid factor (11/09/2014 8:20 AM CDT) Rheumatoid Factor < 10.0 0.0 - 13.9 IU/mL 11/09/2014 8:20 AM CDT 11/09/2014 9:21 AM CDT Bouchra Vickers MD LAB BLOOD ORDERABLES Final Resul t Performing Organization Address [facility] de Phone Number [facility] HISTORICAL RESULTS * (ABNORMAL) Lipid panel (11/09/2014 8:20 AM CDT) Triglycerides 80 0 - 199 mg/dL Comment:12 hr pc highly travis mmended for Triglyceride Cholesterol 235(H) 0 - 199 mg/dL Comment: Borderline: ??200-239 High Risk: ?? >239 HDL Cholesterol 72(H) 40 - 60 mg/dL 11/09/2014 10:04 AM [facility] HISTORICAL RESULTS Comment: Major Risk ?< 40 mg/dL Moderate Risk ?40-60 mg/dL Negative Risk ?? > 60 mg/dL LDL Cholesterol, Calc 147(H) 0 - 130 mg/dL Comment:High Risk > 159 mg/d L Cholesterol/HDL Ratio 3.3 11/09/2014 10:04 AM [facility] HISTORICAL RESULTS Comment: Cholesterol / HDL Ratio 3.5:1 or less is desirable. Cholesterol / HDL Ratio greater than 5:1 is considered higher risk for developing heart disease. 11/09/2014 8:20 AM CDT 11/09/2014 9:21 AM CDT Bouchra Vickers MD LAB BLOOD ORDERABLES Final Resul t Performing Organization Address City/[facility]/ZIP Co de Phone Number [facility] HISTORICAL RESULTS * Creatine kinase (CK), total (11/09/2014 8:20 AM CDT) Creatine Kinase 65 20 - 180 U/L 11/09/2014 8:20 AM CDT 11/09/2014 9:21 AM CDT Bouchra Vickers MD LAB BLOOD ORDERABLES Final Resul t [facility] HISTORICAL RESULTS * CBC with auto differential (11/09/2014 8:20 AM CDT) WBC 5.2 4.6 - 10.2 x10 3/ul RBC 4.56 3.76 - 4.80 x10 6/ul 11/09/2014 9:30 AM [facility] HISTORICAL RESULTS Hemoglobin 13.5 11.0 - 15.0 g/dl 11/09/2014 9:30 AM [facility] Hct 41.1 33.0 - 43.0 % 11/09/2014 9:30 AM [facility] HISTORICAL RESULTS MCV 90.1 80.0 - 97.0 fl 11/09/2014 9:30 AM [facility] HISTORICAL RESULTS MCH 29.6 27.0 - 31.2 pg 11/09/2014 9:30 AM [facility] RESULTS MCHC 32.8 31.8 - 35.4 g/dl 11/09/2014 9:30 AM [facility] RESULTS RDW 12.5 11.6 - 14.8 % 11/09/2014 9:30 AM [facility]IST[facility] RESULTS Plt Count 210 124 - 400 x10 3/ul 11/09/2014 9:30 AM [facility] RES[facility] MPV 10.3 7.4 - 10.4 fl 11/09/2014 9:30 AM [facility] Differential Method AUTOMATED DIFF --------- -- 11/09/2014 9:30 AM [facility] HISTORICAL RESULTS Neut % 62.5 37.0 - 85.0 % 11/09/2014 9:30 AM [facility] HISTORICAL RESULTS Immature Gran % 0.2 0.0 - 3.0 % 11/09/2014 9:30 AM [facility] HISTORICAL RESULTS Lymph % 26.8 5.0 - 45.0 % 11/09/2014 9:30 AM [facility] RESULTS [place] % 7.5 3.0 - 15.0 % 11/09/2014 9:30 AM [facility] Eos % 1.9 0.0 - 7.0 % 11/09/2014 9:30 AM [facility] Baso % 1.1 0.0 - 2.0 % 11/09/2014 9:30 AM [facility] HISTORICAL RESULTS ABSOLUTE COUNTS ABSOLUTE COUNTS --------- -- 11/09/2014 9:30 AM [facility] Absolute Neuts (auto) 3.3 1.7 - 8.7 x10 3/ul Immature Gran # 0.0 0.0 - 0.3 x10 3/ul Absolute Lymphs (auto) 1.4 0.2 - 4.6 x10 3/ul Absolute Monos (auto) 0.4 0.1 - 1.5 x10 3/ul Absolute Eos (auto) 0.1 0.0 - 0.7 x10 3/ul Absolute Basos (auto) 0.1 0.0 - 0.2 x10 3/ul 11/09/2014 8:20 AM CDT 11/09/2014 9:21 AM CDT Bouchra Vickers MD LAB BLOOD ORDERABLES Final Resul t Performing Organization Address City/[facility] Co de Phone Number [facility] HISTORICAL RESULTS * CRP (acute phase) (11/09/2014 8:20 AM CDT) C-Reactive Protein 0.5 0.0 - 4.9 mg/L 11/09/2014 8:20 AM CDT 11/09/2014 9:21 AM CDT Bouchra Vickers MD LAB BLOOD ORDERABLES Final Resul t Performing Organization Address City/[facility] Co de Phone Number [facility] HISTORICAL RESULTS * Basic metabolic panel (11/09/2014 8:20 AM CDT) Sodium 141 135 - 145 mmol/L Potassium 4.1 3.3 - 5.1 mmol/L 11/09/2014 10:04 AM [facility] HISTORICAL RESULTS Chloride 99 96 - 108 mmol/L 11/09/2014 10:04 AM [facility] HISTORICAL RESULTS Carbon Dioxide 28 22 - 32 mmol/L 11/09/2014 10:04 AM [facility] HISTORICAL RESULTS Anion Gap 14 7 - 16 11/09/2014 10:04 AM [facility] HISTORICAL RESULTS Glucose 94 70 - 100 mg/dL 11/09/2014 10:04 AM [facility] HISTORICAL RESULTS BUN 11 6 - 20 mg/dL 11/09/2014 10:04 AM [facility] HISTORICAL RESULTS Creatinine 0.7 0.5 - 1.1 mg/dL 11/09/2014 10:04 AM [facility] HISTORICAL RESULTS Kidney Disease Stage > 90 mL/MIN 11/09/2014 10:04 AM [facility] HISTORICAL RESULTS Comment: NOTE; ??The GFR is [...] Kidney failure or on dialysis @ Calcium 9.8 8.6 - 10.0 mg/dL 11/09/2014 10:04 AM [facility] HISTORICAL RESULTS 11/09/2014 8:20 AM CDT 11/09/2014 9:21 AM CDT us Bouchra Vickers MD LAB BLOOD ORDERABLES Final Resul t Performing Organization Address [facility] de Phone Number [facility] HISTORICAL RESULTS * (ABNORMAL) MARTIN BY IFA,IGG (11/09/2014 8:20 AM CDT) MARTIN BY IFA,IGG Dual Pattern(H ) <1:40 Comment: Dual Pattern ?? Dual pattern seen: ?? Nucleolar pattern, titer of 1:80, and Speckled pattern, ?? titer of 1:80. ?? INTERPRETIVE INFORMATION: MARTIN by IFA, IgG ?? Anti-nuclear antibodies (MARTIN) are seen in a variety of ?? systemic rheumatic diseases and are determined by indirect ?? fluorescence assay (IFA) using HEp-2 substrate with an ?? IgG-specific conjugate. MARTIN titers less than or equal to ?? 1:80 have variable relevance while titers greater than or ?? equal to 1:160 are considered clinically significant. These ?? antibodies may precede clinical disease onset; however, ?? healthy individuals and those with advanced age have been ?? reported to be positive for MARTIN. When observed, one of the ?? five basic patterns is reported: homogeneous, ?? peripheral/rim, speckled, centromere, or nucleolar. If ?? cytoplasmic fluorescence is observed, it is noted. IFA ?? methodology is subjective and has occasionally been shown ?? to lack sensitivity for anti-SSA/Ro antibodies. ?? Negative results do not necessarily rule out the presence ?? of SSc. If clinical suspicion remains, consider further ?? testing for U3-COMPRESSOR BATTERY PELLETS, PM/Scl, or Th/To antibodies associated ?? with SSc. ?? Performed by [email or web address], ?? [address] [place] [id number] ?? [email or web address], Avery Marcos MD, Lab. Director ?? 11/09/2014 8:20 AM CDT 11/09/2014 9:21 AM CDT us Bouchra Vickers MD LAB BLOOD ORDERABLES Final Resul t Performing Organization Address City/[facility] Co de Phone Number [facility] HISTORICAL RESULTS documented in this encounter Visit Diagnoses Diagnosis Other and unspecified mitral valve diseases Slow transit constipation Other sleep disturbances Pain in joint, hand documented in this encounter
--- OUTSIDE RECORDS SUMMARY | 2024-04-02 18:40 | XMS_ITS | Encounter Summary ---
Author Organization [facility] Medical Group Address [address] [place] [address] Care Team Providers Care Trial Consultant Name Role Phone Bouchra Vickers MD Primary Care Provider [phone] Reason for Visit * Reason Onset Date Comments Covid-19 Home Monitoring 03/16/2020 Enrollm ent call day 1 Encounter Details Date Type Department Care Team (Late st Contact Info) Description 03/16/[address] 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/ COVID home monitoring program. The patient was contacted via phone for enrollment in the program. The following criteria were reviewed with the patient: - Active MyChart (or willing to activate today): No Please send patient activation link and confirm that they have received. Patients with active MyChart but who are uncertain how to access should be directed to the MyChart support center at: [phone] or [phone]. - Tablet or SmartPhone with [employer] or ability to download [employer] today: No - Agree to complete a daily questionnaire about their symptoms (this will be sent to their phone ator around 9am daily): No The patient was informed that members of the healthcare team will contact them depending on the symptoms that they report. This call could come from a variety of phone numbers depending on which member of the healthcare team is contacting the patient, and the patient should be prepared to answer calls from a variety of phone numbers. If the patient reports concerning symptoms but is unable to be contacted, the police department maybe contacted to perform a security check. After review, the patient declined to participate. The ???COVID19 Home Monitoring?? order was not placed to enroll the patient. SPECIALIST documented in this encounter Plan of Treatment Not on file documented as of this encounter Visit Diagnoses Not on filedocumented in this encounter Additional Health Concerns Infection Onset Date Last Indicated Resolved Time COVID19 03/13/2020 03/13/2020 03/27/2020 3:07 AM ERP SPECIALIST documented as of this encounter Care Teams Trial Consultant Relationship Specialty Start Date End Date Bouchra Vickers MD [address] [address] PCP - General 01/18/19 documented as of this encounter
== END 2024-03-26 08:26 | disposition home or self-care (01) ==
LOC: ANHLAB 08:29
PROVIDERS: PCP Family Medicine; Visit Provider Family Medicine
DX: E78.5 Hyperlipidemia, unspecified (principal); E53.8 Deficiency of other specified B group vitamins; M13.841 Other specified arthritis, right hand; M13.842 Other specified arthritis, left hand; Z79.891 Long term (current) use of opiate analgesic
CPT/HCPCS: 36415; 73130; 80053; 80061; 82607; 85025; 86038; 86039; 86140; 86200; 86430

== ENCOUNTER 2024-05-12 12:40 | Outpatient (CLI) | payer OTHER, SELFPAY ==
--- NOTE | ~2024-05-12 | CT_ITS ---
CT Scan of the Chest without Contrast: Clinical Indication: Right lung nodule Technique: Contiguous sections were acquired throughout the chest without intravenous contrast. Dose reduction technique was used on this scan by utilizing automated exposure control and iterative recon struction technique. The dose-length product (DLP) was 62.71 mGy-cm. COMPARISON: 02/17/2024 Findings: There is no evidence of any significant mediastinal, hilar or axillary lymphadenopathy. The mediastin al soft tissues appear normal. There is no evidence of pleural or pericardial effusion. Stable grouped nodules in the anterolateral right lower lobe peripherally. There is mild cystic us e or emphysema at the lung bases. Images through the upper abdomen reveal cholecystectomy clips and pneumobilia. Impression: Stable grouped right lower lobe pulmonary nodules, as above. Mild emphysema. Reviewed, dictated and finalized at [facility]. RPRETIVE PROGRAM COORDINATOR Impression: Stable grouped right lower lobe pulmonary nodules, as above. Mild emphysema.
--- OUTSIDE RECORDS SUMMARY | 2024-05-12 12:47 | XMS_ITS | Data Portability ---
[facility] Address [address] [facility] [place] [address] Care Team Providers Care Silk Printer Name Role Phone BOUCHRA GOODEN Primary Care Provider MALACHI CAMPUZANO Principal Automation Engineer [phone] NICOLETTE HENRY Independent Distributor Assessment No assessment recorded. Plan of Treatment Reminders Order Date Submit Date Provider Last Modified By Organization Details Last Modified Time Details Appointments MEDICARE WELLNESS VISIT 2024 10:30A M Bouchra Gooden MD Not available Not available Not available Lab urinalysi s complete, reflex culture [address] Outpatient Registration Lab/Ekg, [address], [place], [address], 05/28/2022 11:35:59 lipid panel, serum 2022 023 [facility] Outpatient Registration Lab/Ekg, [address] [facility], [place], [address], 04/02/2023 12:10:29 CMP, serum or plasma 2022 023 [facility] Outpatient Registration Lab/Ekg, [address], [place], [address], 04/02/2023 12:10:28 CBC w/ auto diff 2022 023 [facility] Outpatient Registration Lab/Ekg, [address], [place], [address], 04/02/2023 12:10:29 vitamin B12, serum 2022 023 [facility] Outpatient Registration Lab/Ekg, [address] [place] [address] [address], [place], [address], 04/02/2023 12:10:29 CMP, serum or plasma 2023 024 [facility] (Lab), [address] [place] [address] [address], [place], [address], 03/26/2024 12:16:56 C reactive protein, QN, serum or plasma 2023 024 [facility] (Lab), [address] [place] [address] [address], [place], [address], 05/07/2024 14:52:51 MARTIN (antinucl ear antibodie s) screen, ifa, serum 2023 024 [facility] (Lab), [address] [place] [address] [address], [place], [address], 03/30/2024 15:39:54 rf (rheumato id factor) + anti-ccp abs, serum 2023 024 [facility] (Lab), [address] [place] [address] [address], [place], [address], 03/26/2024 13:52:00 lipid panel, serum 2023 024 [facility] (Lab), [address] [place] [address] [address], [place], [address], 03/26/2024 12:16:56 vitamin B12, serum 2023 024 [facility] (Lab), [address] [place] [address] [address], [place], [address], 03/26/2024 12:16:56 CBC w/ auto diff 2023 024 [facility] (Lab), [address] [place] [address] [address], [place], [address], 03/26/2024 12:16:56 Referral None recorded. Procedures None recorded. Surgeries None recorded. Imaging XR, hand 2023 024 [facility] (Imaging), [address], [place], [address], 03/26/2024 17:21:43 Medication Orders metoprolo l succinate ER 50 mg tablet,ex tended release 24 hr 2022 023 [id number], [address] [facility], [place], [place], [id number], 03/18/2023 11:36:15 Patient TargetsNo targets recorded. Patient Instructions Encounter Date Encounter Id Patient Instructions Last Modified By Organization Details Last Modified Time 05/28/2022 [id number] keep appt in Feb 2023 Not available 05/28/2022 13:51:08 01/06/2023 [id number] follow up in one month but advised to take off about 6 weeks from work to address grief issues Not available 01/06/2023 21:43:07 02/03/2023 [id number] keep appt for AWV-- follow up sooner as needed Not available 02/03/2023 19:40:49 03/18/2023 [id number] grief (actual/anticipat ed): care instructions Not available 03/19/2023 07:45:33 Reason for Referral None Reported. Results Created Date Observation Date Name Description Value Unit Range Abnormal Flag Note LastModifiedBy Organization Detail LastModifiedTime 06/26/1906/26/2023 gluco se, QN, venou s blood glucose 103 Not Available [facility] [address], [place], [address], 06/30/2023 16:13:50 05/16/19 23 05/16/2022 XR, chest , 2 view No observ ation record ed. jaime Gama [facility] [address] [facility] , [place], [address], 05/31/2022 12:43:20 11/27/19 23 11/25/2022 LDCT, chest , for lung cance r manuelae shania No observ ation record ed. [address], [place], [address], 11/26/2022 17:54:57 05/28/19 24 05/28/2023 CT, chest , w/o contr ast No observ ation record ed. [address], [place], [address], 05/29/2023 08:11:37 06/26/19 24 06/17/2023 pulmo nary funct ion test proce dure (PROC ) No observ ation record ed. [facility] Not Available 2023 07:56:27 06/27/19 24 06/26/2023 PET-C T, skull base to mid-t high scan No observ ation record ed. [address], [place], [address], 06/27/2023 11:56:57 09/18/19 24 09/17/2023 CT, chest , w/o contr ast No observ ation record ed. [email or web address], [place], [address], 09/19/2023 14:11:49 03/26/20 24 03/26/2024 XR, hand No observ ation record ed. [address], [place], [address], 03/30/2024 20:28:09 Result Notes None recorded. Problems Name Problem SNOMED Code Status Onset Date Resolution Date Notes Provider Name and Address Organization Details Recorded Time Non-rheu matic mitral valve disease 659179657 Active 2021 Not Available [facility] 4 02:00:33 Degenera tion of lumbar interver tebral disc 95465911 Active 2021 Not Available [facility] 4 02:00:33 Mild neurocog nitive disorder 724950919 Active 2021 Not Available [facility] 4 02:00:33 Cataract of right eye 923884113 Active 2021 Not Available [facility] 4 02:00:33 Family history of diabetes mellitus in first degree relative 541636606 Active 2021 Not Available [facility] 4 02:00:33 Cobalami n deficien cy 574579357 Active 2021 Not Available [facility] 4 02:00:33 Chronic obstruct marin pulmonar y disease 31530613 Active 2022 Not Available [facility] 4 02:00:33 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 800931485 Active 2022 Not Available [facility] 4 02:00:33 Difficul ty coping with grief response s 935781419 Active 2022 Not Available [facility] 4 02:00:33 Cervical spondylo sis without myelopat hy 952008502 Active 2022 Not Available [facility] 4 02:00:33 Multiple nodules of lung 243324078 Active 2023 abnormal -- with a new lesion 2.7 cm x 1,2 cm x 0.7 cm-- recheck in 3 months- most consiste nt with area of atelecta sis Bouchra Gooden MD Attn: Accounting ,[address], [place], [address] , [facility] 4 08:11:26 Pulmonar y sarcoido sis 26567325 Active 2023 Bouchra Gooden MD Attn: Accounting ,[address], [place], [address] , [place] [facility] 4 12:20:09 Chronic cough 36488863 Active 2022 Bouchra Gooden MD Attn: Accounting ,[address], [place], [address] , [place] [facility] 4 12:49:14 Spasm of sphincte r of Oddi 97073747 Completed 201112/01/2011 Location : None;Sev erity: Moderate ;Progres s: Stable;A dded By: Bouchra Gooden;Add to Current Problems : NO Not Available [facility] 7 08:54:31 [facility] emia 211094306 Completed 201205/31/2012 Location : None;Sev erity: Moderate ;Progres s: Stable;A dded By: Bouchra Gooden;Add to Current Problems : NO Not Available [facility] 7 08:54:31 Hand joint pain 893518429 Completed 201406/28/2019 Location : None;Sev erity: Moderate ;Progres s: Stable;A dded By: Bouchra Gooden;Add to Current Problems : YES Removal Reason: recovere d Bouchra Gooden MD Attn: Accounting ,[address] [place], [address] , [facility] 10:12:14 Slow transit constipa tion 90993855 Active 2014 Location : None;Sev erity: Moderate ;Progres s: Stable;A dded By: Bouchra Gooden;Add to Current Problems : YES Not Available [facility] 4 02:00:33 Dyssomni a 04502630 Completed 201401/07/2015 Location : None;Sev erity: Moderate ;Progres s: Stable;A dded By: Bouchra Gooden;Add to Current Problems : YES Not Available [facility] 7 08:54:31 Multiple joint pain 75615303 Active 2015 Location : None;Sev erity: Moderate ;Progres s: Stable;A dded By: Bouchra Gooden;Add to Current Problems : YES Not Available [facility] 4 02:00:33 Premenst rual tension syndrome 13540888 Completed 201106/28/2019 Location : None;Sev erity: Moderate ;Progres s: Stable;A dded By: Bouchra Gooden;Add to Current Problems : YES Bouchra Gooden MD Attn: Accounting ,[address] [place], [address] , [facility] 10:11:54 Transharish t insomnia 749434753 Completed 201311/18/2013 Location : None;Sev erity: Moderate ;Progres s: Stable;A dded By: Ofe Lynn;Add to Current Problems : NO Not Available [facility] 7 08:54:32 Hemangio ma of skin and subcutan eous tissue 636240419 Active 2013 Location : None;Sev erity: Moderate ;Progres s: Stable;A dded By: Bettie Cobos;Add to Current Problems : NO Not Available [facility] 4 02:00:33 Irritabl e bowel syndrome 48753374 Active 2011 Location : None;Sev erity: Moderate ;Progres s: Stable;A dded By: Kathy Rust; Add to Current Problems : NO Bouchra Gooden MD Attn: Accounting ,[address] [place], [address] , [facility] 4 12:49:47 Migraine without aura 23963483 Active 2011 Location : None;Sev erity: Moderate ;Progres s: Stable;A dded By: Kathy Rust; Add to Current Problems : NO Not Available [facility] 4 02:00:33 Acquired hypothyr oidism 098554763 Active 2015 Location : None;Sev erity: Moderate ;Progres s: Stable;A dded By: Kathy Rust; Add to Current Problems : YES Not Available [facility] 4 02:00:33 Notes:Some problems listed i n Documents: #[id number], #[id number], #[id number] could not be added to this patient's chart. Please review these documents and add these problems to the patient's chart manually as needed. Problem Notes None recorded. Procedures Surgical History Date Name Laterality Status Provider Name and Address Organization Details Recorded Time 07/10/19 24 biopsy of lung completed Bouchra Gooden MD Attn: Accounting, [address] [place], [address] [place] [address] 07/22/2023 08:11:42 12/27/19 23 cataract surgery completed Bouchra Gooden MD Attn: Accounting, [address], [place], [address], [facility] 03/18/2023 11:18:43 06/23/19 22 Date of Last Mammogram completed Kenia Carter [place] - [facility] 03/19/2024 11:39:12 12/30/19 07 Cholecystectomy completed Bouchra Gooden MD Attn: Accounting, [address], [place], [address], [facility] 03/19/2024 12:35:14 08/30/19 05 Total hysterectomy completed Bouchra Gooden MD Attn: Accounting, [address], [place], [address], [facility] 03/19/2024 12:35:56 04/01/18 95 Tubal Ligation completed Bouchra Gooden MD Attn: Accounting, [address], [place], [address], [facility] 03/19/2024 12:36:16 03/31/18 90 Dilation and Curettage completed Bouchra Gooden MD Attn: Accounting, [address], [place], [address], [facility] 03/19/2024 12:32:10 Gastrointestinal Surgery completed Bouchra Gooden MD Attn: Accounting, [address], [place], [address], [facility] 11/28/2020 10:40:19 Imaging Results Imaging Date Name Status LastModified by Organiz ation Details LastModified Time 05/16/2022 XR, chest, 2 view completed [place] [address] [facility] , [place], [address], 05/31/2022 12:43:20 11/25/2022 LDCT, chest, for lung cancer screening completed [address], [place], [address], 11/26/2022 17:54:57 05/28/2023 CT, chest, w/o contrast completed [address] [facility], [place], [address], 05/29/2023 08:11:37 06/17/2023 pulmonary function test procedure (PROC) completed [facility] Information not available 06/27/2023 07:56:27 06/26/2023 PET-CT, skull base to mid-thigh scan completed [address] [place] [address], [address], 06/27/2023 11:56:57 09/17/2023 CT, chest, w/o contrast completed [address] [place] [address], [address], 09/19/2023 14:11:49 03/26/2024 XR, hand completed [address] [place] [address], [address], 03/30/2024 20:28:09 Procedure Notes None recorded. Medical Equipment None Reported. Allergies Allergen ID Allergen Name Allergen Category Reaction Reaction Severity Criticality Documentation Date Start Date Code Code System Note Provider Name and Address Organization Details Recorded Time 484126 sumatript an medicatio n anaphylax is Not available Not available 03/19/2024 91798 RxNorm Not Available Not Available Not Available 341443 zolmitrip araujo medicatio n anaphylax is Not available Not available 03/19/20242021 64483 5 RxNorm Not Available Not Available Not Available 810280 Medicinal product acting as adhesive (product) environme nt,medica tion rash Not available Not available 03/19/20242021 51480 2009 SNOMED Not Available Not Available Not Available 40545 Zomig medicatio n Not available Not available Not available 04/03/20162012 21108 4 RxNorm React ion: Myalg ia, swell ing, Throa t disco mfort ;Alee rity: Moder ate; Comme nt: Aller gy Type: Aller gy; Not Available Not Available Not Available Medications Name Sig Start Date Stop Date Status Note LastModified by Organization Details LastModified Time fluoxetine 40 mg capsule TAKE ONE CAPSULE BY MOUTH EVERY DAY 05/17 completed Not Available Not Available Not Available Miralax 17 gram/dose oral powder Dissolve 1 capful(s) in 8 ounces of water and drink daily 01/06 completed RxNor m: 19067 5;All ow Subst ituti on: True Not Available Not Available Not Available prednisone 10 mg tablet 01/06 completed Not Available Not Available Not Available ofloxacin 0.3 % eye drops 03/15 completed Not Available Not Available Not Available metoprolol succinate ER 50 mg tablet,exte nded release 24 hr Take 1 tablet every day by oral route. 2024 active Not Available Not Available Not Avai lable prednisone 20 mg tablet TAKE 1 TABLET [...] capsules per day. 04/30 completed RxNor m: 43029 7;All ow Subst ituti on: True Not [...] by mouth daily 04/30 completed RxNor m: 13574 6;All ow Subst ituti on: True Not Available Not Available Not Available Imdur 60 mg tablet,exte nded release Take 1 tablet(s) by mouth qam 11/08 completed RxNor m: 84426 8;All ow Subst ituti on: True Not [...] 2 times weekly 05/02 completed RxNor m: 32861 4;All ow Subst ituti on: True Not [...] cap po daily 10/18 completed RxNor m: 41783 1;All ow Subst ituti on: True Not [...] Updated DateTime 3 158.75 cm 19.6 kg/m2 31656.5 7 g 97 [degF] 97 % 97 % 69 /min 100 mm[Hg] 70 mm[Hg] Nataly Ireland MA [facility] 3 10:48:55 Date Recorded Body height Body mass index (BMI) Body weight Body temperature Oxygen saturation Oxygen saturation in Arterial blood by Pulse oximetry Heart rate Systolic blood pressure Diastolic blood pressure Provider Name and Address Organization Details Last Updated DateTime 3 158.75 cm 20 kg/m2 46856.1 5 g 98.2 [degF] 98 % 98 % 62 /min 119 mm[Hg] 67 mm[Hg] Ariel Salamanca MA [facility] 3 14:39:37 Date Recorded Body height Body mass index (BMI) Body weight Body temperature Oxygen saturation Oxygen saturation in Arterial blood by Pulse oximetry Heart rate Systolic blood pressure Diastolic blood pressure Provider Name and Address Organization Details Last Updated DateTime 3 158.75 cm 20.2 kg/m2 30845.3 5 g 97.2 [degF] 95 % 95 % 47 /min 107 mm[Hg] 63 mm[Hg] Kenia Carter MA [facility] 3 15:35:11 Date Recorded Body height Body mass index (BMI) Body weight Body temperature Oxygen saturation Oxygen saturation in Arterial blood by Pulse oximetry Heart rate Systolic blood pressure Diastolic blood pressure Provider Name and Address Organization Details Last Updated DateTime 3 158.75 cm 20.4 kg/m2 81676.7 4 g 97.6 [degF] 93 % 93 % 69 /min 116 mm[Hg] 67 mm[Hg] Ariel Salamanca MA [facility] 3 11:12:36 Date Recorded Body weight Body mass index (BMI) Body height Oxygen saturation Oxygen saturation in Arterial blood by Pulse oximetry Heart rate Body temperature Systolic blood pressure Diastolic blood pressure Provider Name and Address Organization Details Last Updated DateTime 4 68989.8 3 g 18.2 kg/m2 158.75 cm 97 % 97 % 74 /min 97.1 [degF] 122 mm[Hg] 73 mm[Hg] Kenia Carter MA [facility] 4 11:35:34 Social History Question Answer Notes LastModified by [employer] ion Details LastModified Time Tobacco Smoking Status Never Smoker [facility] 05/02/2016 11:13:48 Do You Have An Advance [...] Anxious, Or Unable To Sleep At Night)? [id number] Information not available 11/28/2020 Do You Use [...] Eating Disorder N Anemia N Heart Attack ([place]) N Diabetes N Muscle, Joint, or Bone [...] PF, 0.5 mL 1 completed Not Available [facility] 05/12/2023 02:00:34 Influenza, split virus, trivalent, preservative 9 completed Not Available [facility] 05/12/2023 02:00:34 Influenza, split virus, trivalent, PF 4 completed Bouchra Gooden MD Attn: Accounting[address] [place], [address], [facility] 03/19/2024 12:47:12 Tdap 0 completed LUZ Leggett, [place] - [facility] 09/21/2019 14:44:46 Tdap 9 completed Not Available [facility] 05/12/2023 02:00:34 Pneumococcal conjugate PCV20, polysaccharide MPR287 conjugate, adjuvant, PF 4 completed LUZ Bennett, [place] - [facility] 03/19/2024 13:04:40 Influenza, split virus, quadrivalent, preservative 7 completed Not Available [facility] 05/12/2023 02:00:33 Past Encounters Encounter ID Performer Location Encounter Start Date Encounter Closed Date Diagnosis/Indication Diagnosis SNOMED-CT Code Diagnosis ICD10 Code Diagnosis Note [id number] Bouchra Gooden MD [facility] [address] [place] [address] 05/02/2016 11:04:24 05/03/2016 13:57:59 Acquired hypothyroidism 902596447 E03.9 mild cold intoleranc e, mild GI symptoms due to IBS but well controlled on other medication s, reflexes normal/sym metric bilaterall y, will maintain current regimen Mitral valve disorder 11 069559 I05.9 rate well controlled , patient reports episodes of palpitatio ns/increas ed sweating every 2-3 months, recommend taking an additional 0.5 tablet of metoprolol during these episodes, also refilling the prescripti on for the next 6 months Premenstru al tension syndrome 96041209 N94.3 mood symptoms well controlled on current regimen, will refill for next 6 months [id number] Margot Arthur MA [facility] [address] [place] [address] 10/30/2016 09:43:13 10/30/2016 13:27:43 Acquired hypothyroidism 445491472 E03.9 christal dose change-- levels at your convenienc e-- lab at [facility]-- employee Irritable bowel syndrome 88506961 K58.9 no med change-- cont to eat diet Mitral valve disorder 11 011481 I05.9 rate well controlled , patient reports episodes of palpitatio ns/increas ed sweating every 2-3 months, recommend taking an additional 0.5 tablet of metoprolol during these episodes, also refilling the prescripti on for the next 6 months Spasm of s phincter of Oddi 99623305 K83.4 I will assume refills of your chronic meds Premenstru al tension syndrome 48129112 N94.3 mood symptoms well controlled on current regimen, will refill for next 6 months Adult heal th examination 377675774 Z00.[address] Marie follow up Family his tory of diabetes mellitus in first degree relative 979047398 Z83.3 will check this given mother's history and your personal hx of hypoglycem ia-- lab at [facility]-- employee Screening for malignant neoplasm of colon 571178706 Z12.11 you refuse screening colon cancer-- stool testing or colonoscop y [id number] Bouchra Gooden MD [place] [address] [place] [address] 05/02/2017 09:26:50 05/02/2017 14:59:25 Migraine without aura 71243801 G43.009 doing very well with no migraine related issues Acquired hypothyroidism 431880560 E03.9 no dose change-- levels to be rechecked in October at your convenienc e-- lab at [facility]-- employee Irritable bowel syndrome 47671065 K58.9 no med change-- cont to eat diet as to low gas forming and avoiding excess caffeine and other GI stimulants Multiple joint pain 3567 8005 M25.50 will try aleve for hand pain-- if not better or GI intoleranc e-- will let me know. Consider XRAYS if not improving with aleve or if progressiv e Premenstru al tension syndrome 15336824 N94.3 mood symptoms well controlled on current regimen [id number] Bouchra Gooden MD [place] [address] [facility] [address] [place] [address] 10/30/2017 11:29:01 10/31/2017 09:17:14 Irritable bowel syndrome 52858005 K58.9 no med change-- cont to eat diet as to low gas forming and avoiding excess caffeine and other GI stimulants Acquired hypothyroidism 858406710 E03.9 no dose change-- [facility] at [facility]-- employee Migraine without aura 56 778091 G43.009 doing very well with no migraine related issues Spasm of s phincter of Oddi 45782870 K83.4 I will assume refills of your chronic meds Mitral valve disorder 11 955545 I05.9 rate well controlled , patient reports episodes of palpitatio ns/increas ed sweating every 2-3 months, recommend taking an additional 0.5 tablet of metoprolol during these episodes, also refilling the prescripti on for the next 6 months Hyperkalemia 03533805 E8 7.5 likely related to dehydratio n and intake of bananas before ER visit - will recheck for completene ss [id number] Bouchra Gooden MD [place] [address] [facility] [address] [place] [address] 05/13/2018 10:55:57 05/14/2018 08:21:11 Irritable bowel syndrome 93612216 K58.9 We discussed FODMAP awareness and to try foods low in FODMAP when flare up of IBS-- You need to get a COLONOSCOP Y-- set this up!! Adult heal th examination 918874680 Z00.[address] Marie follow up for gynecology exam Screening for malignant neoplasm of breast 324148103 Z12.39 Acquired hypothyroidism 268186606 E03.9 - levels to be rechecked tomorrow at your convenienc e-- lab at [facility]-- employee Migraine without aura 56 604685 G43.009 doing very well with no migraine related issues Mood disorder 63174211 F 39 increase the dose of FLUOXETINE due to the concern for the home situation [id number] MARIANNE Rodriguez [facility] [address] [facility] [address] [place] [address] 05/17/2019 16:00:47 05/18/2019 08:50:40 Pain in right hand 1878573400 40622 M79.641 we will re xray due to reoccurrin g swelling. [id number] Bouchra Gooden MD [facility] [address] [facility] [address] [place] [address] 06/28/2019 09:18:24 06/28/2019 16:01:33 Mood disorder 01782235 F39 increase the dose of FLUOXETINE due to the concern for the home situation Irritable bowel syndrome 01341036 K58.9 Mitral valve disorder 11 899437 I05.9 rate well controlled , patient reports episodes of palpitatio ns/increas ed sweating every 2-3 months, recommend taking an additional 0.5 tablet of metoprolol during these episodes, also refilling the prescripti on for the next 6 months [id number] Bouchra Gooden MD [facility] [address] [place] [address] 09/21/2019 13:51:19 09/21/2019 20:34:37 Adult health examination 011486087 Z00.01 Acquired hypothyroidism 643203404 E03.9 - levels to be rechecked - at your convenienc e-- lab at [facility]-- employee Screening mammography 24 230288 Z12.31 Administra tion of diphtheria, pertussis, and tetanus vaccine 944995203 Z23 [id number] Bouchra Gooden MD [facility] [address] [place] [address] 11/28/2020 09:45:22 11/28/2020 15:10:27 Adult health examination 283837090 Z00.01 Acquired hypothyroidism 583783082 E03.9 - [facility] employee Irritable bowel syndrome 20863186 K58.9 discussed FODMAP Mitral valve disorder 11 724345 I05.9 rate well controlled , patient reports episodes of palpitatio ns/increas ed sweating every 2-3 months, recommend taking an additional 0.5 tablet of metoprolol during these episodes, also refilling the prescripti on for the next 6 months Intolerant of cold 95750 000 R68.89 Low back pain 194269834 M54.5 Cataract 413658257 H26.9 will set up surgery with eye doctor and if greater than 3 months-- may need another visit for clearance [id number] Bouchra Gooden MD [facility] [address] [place] [address] 11/09/2021 09:52:56 11/09/2021 14:49:27 Adult health examination 745490566 Z00.01 vaccine endorsed and declined for COVID Postviral cough 25811938 4 R05.9 chest XRAY and get PFTs with follow up after-- trial rescue inhaler as needed Degenerati on of lumbar intervertebral disc 97625930 M51.36 had had limited chiro care due to cost-- not participat ing in a routine HEP but would like to investigat e pain since daily and does wish to take a daily NSAID due to considerat ion for risk related to that use Mild neuro cognitive disorder 458597649 G31.84 refuses to HIV screening- - I do not know the role of THC in this complaintI do endorse good nutrition and adequate sleep Family his tory of diabetes mellitus in first degree relative 196098030 Z83.3 will check this given mother's history and your personal hx of hypoglycem ia-- lab at [facility]-- employee Cataract of right eye 81 1559729 H26.9 will medically clear if needed in the next 1-2 months based on today's encounter [id number] Bouchra Gooden MD [facility] [address] [facility] [address] [place] [address] 03/15/2022 11:42:09 03/15/2022 15:55:50 Mood disorder 69275816 F39 no change in the dose of the fluoxetine at the time-- dose seems effective and tolerable Non-rheuma tic mitral valve disease 737176488 I34.9 routine effective -- routine refill sent Low back pain 760067202 M54.50 seems to be the same-- will await imaging in the coming year Poor short -term memory 357377209 R41.3 seems to be the same-- will await imaging in the coming year Influenza immunization advised 374063650 Z71.85 will consider at work Immunization advised 310 347979 Z71.9 shingrix advised-- no need for discussion per patient [id number] Bouchra Gooden MD [facility] [address] [facility] [address] [place] [address] 05/28/2022 10:31:44 05/28/2022 15:35:40 Acute bronchitis 39201059 J20.9 complete the prednisone taper as advised at hospital discharge- - no need for additional antibiotic s Dyspnea 086477538 R06.00 she is advised to cont inhalers with follow up planned for next week with pulmonolog ist Medical ex amination for suspected condition 403283412 Z04.9 will recheck urine as ordered in October 2021-- cognition issues Chronic ob structive pulmonary disease 98317299 J44.9 to get the PFT report s for record-- I advised and patient refused PREVNAR 20 [id number] Bouchra Gooden MD [facility] [address] [place] [address] 01/06/2023 14:15:54 01/07/2023 09:50:45 Difficulty coping with grief responses 729921180 F43.20 I advised patient to take time off of work due to grief and short term disability related to significan t adjustment issues-- time to establish counseling for her grief and time to make financial decisions going forward-- she thinks she will need to sell her home to be self sufficient and reports that her home is too big for just her [id number] Bouchra Gooden MD [facility] [address] [place] [address] 02/03/2023 15:16:26 02/04/2023 10:29:29 Difficulty coping with grief responses 958230502 F43.20 I advised patient to remain off of work as outlined with last OV due to grief and short term disability related to significan t adjustment issues-- she is encouraged to develop strategies to deal with her grief-- continue to make difficult financial decisions going forward-- she thinks she will need to sell her home to be self sufficient and reports that her home is too big for just her Multiple p remature ventricular complexes 256885757 I49.3 cont to avoid caffeine-- get adequate rest and drink plenty of fluids. No change in meds [id number] Bouchra Gooden MD [facility] [address] [place] [address] 03/18/2023 10:52:23 03/19/2023 11:30:03 Non-rheumatic mitral valve disease 195641020 I34.9 routine effective -- routine refill sent Cervical s pondylosis without myelopathy 896138451 M47.[address] chest did show cervical spondylosi s-- she reports neck aching and pain but no radiculopa thy complaint- - she is not interested in PA at this timeMassag e and ROM exercises discussed Adult [facility] th examination 920787849 Z00.01 vaccines endorsed -- FLU shot--decl inedSHINGR IX vaccineShe is encouraged to follow up with Dr Marie routinely for her women's health-- declined here Serum wendy min B12 below reference range 996161329 R79.89 agrees to recheck labs related to low B 12-- she is taking monthly replacemen t ( self administer ed given her medical background ) Bereavement 87292960 Z63 .4 discussed at length with philippe ledbetter around the holidays discussed. No new interventi on planned at this time. She is participat ing in work with better effectiven ess ( not crying at a drop of a hat)Michierica rodrickelmira discussed- - be open and don't be offended when other family may have difficulty in bringing up Pepe's name/remem ramonita [id number] Bouchra Gooden MD [facility] [address] [place] [address] 03/19/2024 11:18:00 03/22/2024 09:55:24 Adult health examination 143167008 Z00.01 discussed DEXA and declined testing at this timeDiscus sed mammogram and she agrees and will schedule Bilateral arthritis of hands 8764876140 99167 M13.841 M13.842 will check XRAYs asn order screening -- no real help with PREDNISONE - likely not RA Hyperlipidemia 55870956 E78.5 last HDL was good and LDL was minimally elevated-- but will recheck next week Cobalamin deficiency 190 944811 E53.8 she reprots she does not feel any different since starting B 12 injecions- - will check CBC and B 12 Long-term drug therapy 356374287 Z79.891 routine labs next week Anxiety 53152913 F41.9 Take medicines exactly as directed. Call [...] do something you enjoy. Go to a [employer] movie, or take a walk or hike. [...] team sports. Administra tion of pneumococcal vaccine 76747066 Z23 update pneumonia vaccine and letter to Dr Campuzano that vaccine was given Working th rough the pain of grief 267049782 F43.21 offered counseling -- advised meditation and [...] ID Guarantor Name 05/28/2022 1 UMR (PPO) [id number] Obi Gama [id number] Obi Gama 01/06/2023 1 UMR (PPO) [id number] Obi Gama [id number] Obi Gama 02/03/2023 1 UMR (PPO) [id number] Obi Gama [id number] Obi Gama 03/18/2023 1 UMR (PPO) [id number] Obi Gama [id number] Obi Gama 03/19/2024 1 UMR (PPO) [id number] Obi Gama [id number] Obi Gama Notes Date Note Type Note [...] had PFTs and to follow up with jig bore tool maker next weeknow on symbicort and using rescue inhaler as neededwas treated in [facility] for infection with antibiotics and steroids for the COPD-- she has completed all of the antibiotics given but is still on the taper prednisone no flu shot and is not interested in prevnar 20 at this time Bouchra Gooden MD Attn: Accounting[address] [place], [address], [facility] 05/28/2022 13:53:10 01/06/2023 text/html Generalized Anxi ety [...] through her employment Bouchra Gooden MD Attn: Accounting, [place], [address], [facility] 01/06/2023 21:43:11 02/03/2023 text/html Generalized Anxi ety DisorderReported bypatient.Onset/Timing :10/07/22-- which was the of her Severity:moderate; she is off of work and doing well-- no FMLA issues or disability issues-- paperwork completed last week Context:depression; life stressors; would like to further discuss with provider on todays visit. Associated Symptoms:would rather go over visit with providerNotes:going to bed between 10-11 and wakes up around 6 ---some trouble falling asleep---waking up ot use toilet once a night and falling back asleepappetite is the same -- cooked last 3 nights ago- had pizza with family--and had left overs - no issues with focus some concentration issuesworking with a friend who is a counselor for her mental health Bouchra Gooden MD Attn: Accounting[address] [place], [address], [facility] 02/03/2023 19:42:25 03/18/2023 text/html annual exam - NO PAP Bouchra morales MD Attn: Accounting[address] [place], [address], [facility] 03/19/2023 07:47:06 03/19/2024 text/html since last OV-- 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
--- OUTSIDE RECORDS SUMMARY | 2024-05-12 12:48 | XMS_ITS | Clinical Summary ---
Author Organization [facility] Address [address] [place] [address] Care Team Providers Care Marina Dry Dock Manager Name Role Phone Unavailable Primary Care Provider [...] (1 - 1-dose 75+ series) 07/02/2038 Meningococcal B Vaccine Aged Out No l onger eligible based on patient's age to complete this topic Meningococcal Vaccine Aged Out No mathieu cassidy [...]
--- OUTSIDE RECORDS SUMMARY | 2024-05-12 12:48 | XMS_ITS | Referral Summary ---
Author Organization [facility] Address [address] [place] [address] Care Team Providers Care Scrap Breaker Name Role Phone Bouchra Vickers MD Primary Care Provider [phone] Donte Campuzano MD Unavailable [phone] Encounters Date Type Department Care Team Description 02/20/2024 10:00 AM HOUSE WRECKER Lab [facility] Lab [address] [place] [address] 02/20/2024 9:15 AM HOUSE WRECKER Office Visit [facility] Pulmonology [address] [place] [address] [place] [address] Donte Campuzano MD Centrilobular emphysema (HCC) (Primary Dx); Nodule of right lung; Gastroesophageal reflux disease without esophagitis 02/17/2024 11:45 AM HOUSE WRECKER - 02/17/2024 11:59 PM HOUSE WRECKER Hospital Encounter [facility] [employer] [address] [place] [address] Discharge Disposition: Discharge to home or self [...] 1 tablet (60 mg total) by mouth 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 Active nitroglycerin (NITROSTAT) 0.4 mg SL tablet For esophageal spasms only Active polyethylene glycol (MIRALAX) 17 gram/dose powder 04/24/19 13 Active albuterol HFA (PROVENTIL HFA,VENTOLIN HFA,PROAIR HFA) 90 mcg/actuation inhaler Inhale 2 puffs every 4 (four) hours as needed for wheezing 1 each 05/22/19 23 Active cyanocobalamin (Vitamin B-12) 1,000 mcg/mL injection cyanocobalamin (vit B-12) 1,000 mcg/mL injection solution ADMINISTER 1 ML UNDER THE SKIN EVERY MONTH Active estradioL (ESTRACE) 0.5 mg tabletIndicatio ns:Menopausal symptoms Take 1 tablet (0.5 mg total) by mouth daily 30 tablet 11 06/17/19 24 025 Active fluticasone propionate (FLONASE) 50 mcg/actuation nasal sprayIndication s:Centrilobular emphysema (HCC) Administer 2 sprays into each nostril daily 16 g 6 07/16/19 24 Active Additional Information Patient not taking.Reported on 02/20/2024 predniSONE (DELTASONE) 5 mg tablet Take 3 tabs qam 90 tablet 2 10/22/19 24 Active budesonide-glyc opyr-formoterol (Breztri Aerosphere) 160-9-4.8 mcg/actuation inhaler INHALE 2 PUFFS BY MOUTH TWICE DAILY 10.7 g 4 11/24/19 24 Active omeprazole (PriLOSEC) 20 mg capsuleIndicati ons:Gastroesoph ageal reflux disease without esophagitis TAKE 2 CAPSULES(40 MG) BY MOUTH DAILY 30 capsule 04/01/19 25 Active Active Problems Problem Noted Date Diagnosed Date Nodule of right lung 07/17/2023 Assessment & Plan (02/20/2024 9:44 AM HOUSE WRECKER): The patient did have the largest right lower lobe nodule biopsied which revealed noncaseating granulomas. The AFB and fungal cultures were negative from the BAL and the aerobic culture only grew normal upper respiratory alexys. I will check Histoplasma antibodies and also repeat another chest CT in 3 months to evaluate the n ew nodules. I will review the current chest [...] be performed at [facility]. 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 I will repeat another chest CT in 2 weeks and she will follow up here in 4 weeks. Centrilobular emphysema 05/30/2023 Assessment & Plan (02/20/2024 9:43 AM HOUSE WRECKER): The patient never smoked and does have [...] secretions. Assessment & Plan (05/30/2023 10:16 AM HOUSE WRECKER): She states that she is requiring her albuterol inhaler more often. She will continue with breztri 2 puffs b.i.d. and I will check full PFTs at [facility] and start Mucinex 600 mg p.o. b.i.d. [...] week. Assessment & Plan (05/30/2023 10:15 AM HOUSE WRECKER): The original 6 mm right lower lobe [...] complete these at [facility]. I have given the patient an order to have the CT scan completed. The patient is also going to tow picker the disc from the CT scan at [facility] in May for [facility] to compare. Assessment & Plan (07/26/2022 10:05 AM CDT): I have ordered a CT scan of the chest for October of 2022. Assessment & Plan (06/12/2022 3:55 PM CDT): I have ordered a CT scan of the chest for October of 2022. Gastroesophageal reflux disease without esophagi tis 06/12/2022 Assessment & Plan (02/20/2024 9:44 AM HOUSE WRECKER): She has been having increased reflux symptoms [...] Prilosec Assessment & Plan (05/30/2023 10:16 AM HOUSE WRECKER): She continues on a proton pump inhibitor [...] on file Legal Sex Female 10:19 AM HOUSE WRECKER Gender Identity Not on file Sexual Orientation Not on file Last Filed Vital Signs Vital Sign Reading Time Taken Comments Blood Pressure 126/78 02/20/2024 9:04 AM HOUSE WRECKER Pulse 84 02/20/2024 9:04 AM HOUSE WRECKER Temperature 36.6 C (97.8 F) 02/20/2024 9:04 AM HOUSE WRECKER Respiratory Rate 22 02/20/2024 9:04 AM HOUSE WRECKER Oxygen Saturation 99% 02/20/2024 9:04 AM HOUSE WRECKER Inhaled Oxygen Concentration - - Weight 45.8 kg (101 lb) 02/20/2024 9:04 AM HOUSE WRECKER Height 160 cm (5' 3 ) 02/20/2024 9:04 AM HOUSE WRECKER Body Mass Index 17.89 02/20/2024 9:04 AM HOUSE WRECKER Plan of Treatment Not on file Procedures Procedure Name Priority Date/Time Associated Diagnosis Comments HISTOPLASMA ANTIBODY Routine 02/20/2024 10:[address] BODY OUTSIDE REFERENCE Routine 02/17/2024 11:45 AM HOUSE WRECKER SCREENING MAMMOGRAM BILATERAL W RICHI Schedule Routine, Read Routine (OP Routine) 06/21/2021 3:05 PM CDT Encounter for screening mammogram for malignant neoplasm of breast PAP AND HIGH RISK HPV, REFLEX TO GENOTYPING Routine 05/18/2021 10:53 AM HOUSE WRECKER Well woman exam from Last 3 Months or Most Recently Relevant to Health Maintenance Results * Histoplasma Antibody Blood (02/20/2024 10:22 AM HOUSE WRECKER) Histoplasma Ab, yeast CF Negative Negative [facility] Histoplasma Ab, Immunodiffusion Negative Negative KEYSHA Comment: A negative complement fixation and immunodiffusion (CF/ID) result does not exclude the diagnosis of histoplasmosis. Repeat testing by CF/ID in 1-2 weeks if clinically indicated. Test Performed by: [facility] [place] [address] Welder Explosion: Nicole Marcum Ph.D.; CLIA# [id number] Blood 02/20/2024 10:2 2 AM HOUSE WRECKER 02/20/2024 10:43 AM HOUSE WRECKER Donte Campuzano MD LAB MICROBIOLOGY - GENERA L ORDERABLES Final Result Performing Organization Address City/[facility]/ZIP Co de Phone Number KEYSHA [address] [facility] Department [place] [address] [facility] * CT Body Outside Reference (02/17/2024 11:45 AM HOUSE WRECKER) Narrative RAD_[email or web address] - 02/20/2024 11:21 AM HOUSE WRECKER This order has been auto-finalized and does not contain a result. us Provider Transcribed Order IMG CT PROCEDURES Fin al Result Performing Organization Address [facility]/ZIP Co de Phone Number [email or web address] * Screening Mammogram Bilateral W Richi (06/21/2021 3:05 PM CDT) Anatomical Region Laterality Modality Breast Bilateral Mammography Impressions 06/21/2021 3:19 PM CDT BI-RADS ATLAS category (overall): 1 - Negative There is no mammographic evidence of malignancy. A 1 year screening mammogram is recommended. The patient has been or will be contacted. We recommend annual screening mammography for women at average risk of breast cancer beginning at age 40, based on guidelines of the [employer] (ACR Practice Parameter for the Performance of Screening and Diagnostic Mammography) and [employer]. For women [...] in the CC and MLO projections. CLINICAL: Encounter for screening mammogram for malignant neoplasm of breast No relevant medical history has been documented for this patient. History of breast cancer in Neg Hx. [...] HPV, reflex to Genotyping (05/18/2021 10:53 AM HOUSE WRECKER) Thin prep (Pap test) 05/18/2021 10:53 AM HOUSE WRECKER 05/21/2021 10:53 AM HOUSE WRECKER Narrative PATHOLOGY [facility] - 05/24/2021 11:29 AM HOUSE WRECKER [facility] Department of Pathology [address] [place] [address] Final Report with Addendum Note to [...] questions and explain the details. Patient Name: OBI GAMA Address: [address] [place], [place] [id number] Gender: F : 1965 (Age: 55) Service: Laboratory Location: Hospital #: [id number] Patient Type: [facility] SPECIMEN Taken: 05/18/2021 Received: 05/21/2021 Accessioned:: 05/22/2021 Reported: 05/24/2021 Physician(s): Praveen Marie M.D. [facility] Diagnosis: Source of Specimen: SCREENING THIN PREP IMAGED PAP w/ HPV Specimen Adequacy: - Specimen satisfactory for evaluation (vaginal pap) General Category: - Negative for intraepithelial lesion or malignancy RICHARD Munoz(ASCP) Report Electronically Reviewed and Signed Out By RICHARD Munoz(ASCP) 05/24/2021 11:29:57 Addenda: HPV Test Interpretation NEGATIVE for types 16, 18, 31, 33, 35, 39, 45, 51, 52, 56, 58, 59, 66 and 68. Test performed utilizing Gen-Probe Aptima assay. RICHARD Valera(ASCP) Report Electronically Reviewed and Signed Out By RICHARD Valera(ASCP) 05/22/2021 13:35:34 Specimen(s) Received: A: SCREENING THIN PREP IMAGED PAP w/ HPV Clinical History: Menstrual History: Hysterectomy The Pap test is a screening test used to aid in the detection of cervical cancer and its precursors. It should not be the sole means by which malignant and premalignant lesions are diagnosed. Both false negative and false positive results may occur. It also has poor sensitivity for the detection of endometrial lesions and should not be used to evaluate suspected endometrial abnormalities. For these reasons it is most important to obtain Pap tests at regular intervals. The performance characteristics of some immunohistochemical stains, fluorescence in-situ hybridization tests and immunophenotyping by flow cytometry cited in this report (if any) were determined by the Surgical Pathology Department at [facility] as part of an ongoing quality assurance supervisor trim program and in compliance with federally mandated regulations drawn from the Clinical Laboratory Improvement Act of 1988 (CLIA '88). Some of these tests rely on the use of analyte specific reagents and are subject to specific labeling requirements by the US Food and Drug Administration. Such diagnostic tests may only be performed in a facility that is certified by the Department of Health and Human Services as a high complexity laboratory under CLIA '88. The FDA has determined that such clearance or approval is not necessary. This test is used for clinical purposes. It should not be regarded as investigational or for research. Nevertheless, federal rules concerning the medical use of analyte specific reagents require that the following disclaimer be attached to the report: This test was developed and its performance characteristics determined by the Surgical Pathology Department [facility]. It has not been cleared or approved by the U. S. Food and Drug Administration. Praveen Marie MD LAB CYTOLOGY ORDERABLES Final Result Performing Organization Address City/State/[facility] Co de Phone Number [facility] from Last 3 Months or Most Recently Relevant to Health Maintenance Insurance [facility] Advance Directives For more information, please contact: [phone] * Full Code (Latest Code Status on File) Date Activated Date Inactivated Comments 07/10/2023 10:13 AM 07/11/2023 5:04 AM * Full Code Date Activated Date Inactivated Comments 05/19/2022 4:50 AM 05/22/2022 5:19 PM Care Teams Scrap Breaker Relationship Specialty Start Date End Date Bouchra Vickers MD [address] [address] PCP - General 01/18/19 Donte Campuzano MD [address] [facility] [address] [address] Consulting Physician Pulmonary Disease 05/22/22
--- OUTSIDE RECORDS SUMMARY | 2024-05-12 12:48 | XMS_ITS | Clinical Summary ---
Author Organization [facility] at the [facility] Address [address] [place] [address] Care Team Providers Care Binding End Stitcher Name Role Phone Bouchra Vickers MD Primary Care Provider [phone] Donte Campuzano MD Unavailable [phone] Allergies Active Allergy Reactions Criticality Noted Date Comments Adhesive Rash Medium 04/06/2021 red rash, burning Sumatriptan Anaphylaxis High Zolmitriptan Anaphylaxis High 04/06/2021 Throat Swelling, Medications metoprolol XL (TOPROL-XL) 50 mg extended release tablet Take 1 tablet (50 mg total) by mouth daily Active FLUoxetine (PROzac) 60 mg tablet Take 1 tablet (60 mg total) by mouth barrel waterer 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 Active nitroglycerin (NITROSTAT) 0.4 mg [...] 07/17/2023 Assessment & Plan (02/20/2024 9:44 AM AUDIO VISUAL COLLECTIONS COORDINATOR): The patient did have the largest right [...] appointment. The CT will be performed at [facility]. 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 I will repeat another chest CT in 2 weeks and she will follow up here in 4 weeks. Centrilobular emphysema 05/30/2023 Assessment & Plan (02/20/2024 9:43 AM AUDIO VISUAL COLLECTIONS COORDINATOR): The patient never smoked and does have [...] secretions. Assessment & Plan (05/30/2023 10:16 AM AUDIO VISUAL COLLECTIONS COORDINATOR): She states that she is requiring her albuterol inhaler more often. She will continue with breztri 2 puffs b.i.d. and I will check full PFTs at [facility] and start Mucinex 600 mg p.o. b.i.d. [...] week. Assessment & Plan (05/30/2023 10:15 AM AUDIO VISUAL COLLECTIONS COORDINATOR): The original 6 mm right lower lobe [...] November 2023. She does complete these at [facility]. I have given the patient an order to have the CT scan completed. The patient is also going to pickler helper the disc from the CT scan at [facility] in May for [facility] to compare. Assessment & Plan (07/26/2022 10:05 AM CDT): I have ordered a CT scan of the chest for October of 2022. Assessment & Plan (06/12/2022 3:55 PM CDT): I have ordered a CT scan of the chest for October of 2022. Gastroesophageal reflux disease without esophagi tis 06/12/2022 Assessment & Plan (02/20/2024 9:44 AM AUDIO VISUAL COLLECTIONS COORDINATOR): She has been having increased reflux symptoms [...] Prilosec Assessment & Plan (05/30/2023 10:16 AM AUDIO VISUAL COLLECTIONS COORDINATOR): She continues on a proton pump inhibitor [...] Department Care Team Description 02/20/2024 10:00 AM AUDIO VISUAL COLLECTIONS COORDINATOR Lab [facility] [address] [place] [address] 02/20/2024 9:15 AM AUDIO VISUAL COLLECTIONS COORDINATOR Office Visit [facility] [address] [place] [address] Donte Campuzano MD Centrilobular emphysema (HCC) (Primary Dx); Nodule of right lung; Gastroesophageal reflux disease without esophagitis 02/17/2024 11:45 AM AUDIO VISUAL COLLECTIONS COORDINATOR - 02/17/2024 11:59 PM AUDIO VISUAL COLLECTIONS COORDINATOR Hospital Encounter [facility] [employer] [address] [place] [address] Discharge Disposition: Discharge to home or self [...] diabetes mellitus - (Added by NOEMI Conv) Hypertension Mother Family history of hypertension - (Added by NOEMI Conv) Breast cancer [...] on file Legal Sex Female 10:19 AM AUDIO VISUAL COLLECTIONS COORDINATOR Gender Identity Not on file Sexual [...] Comments Blood Pressure 126/78 02/20/2024 9:04 AM AUDIO VISUAL COLLECTIONS COORDINATOR Pulse 84 02/20/2024 9:04 AM AUDIO VISUAL COLLECTIONS COORDINATOR Temperature 36.6 C (97.8 F) 02/20/2024 9:04 AM AUDIO VISUAL COLLECTIONS COORDINATOR Respiratory Rate 22 02/20/2024 9:04 AM AUDIO VISUAL COLLECTIONS COORDINATOR Oxygen Saturation 99% 02/20/2024 9:04 AM AUDIO VISUAL COLLECTIONS COORDINATOR Inhaled Oxygen Concentration - - Weight 45.8 kg (101 lb) 02/20/2024 9:04 AM AUDIO VISUAL COLLECTIONS COORDINATOR Height 160 cm (5' 3 ) 02/20/2024 9:04 AM AUDIO VISUAL COLLECTIONS COORDINATOR Body Mass Index 17.89 02/20/2024 9:04 AM AUDIO VISUAL COLLECTIONS COORDINATOR Plan of Treatment Health Maintenance Due Date Last Done Comments Colon Cancer Screening-Colonoscopy 1965 Depression Screening 1965 Hepatitis C Screening 1965 Hepatitis B Screening 07/02/1981 Zoster Vaccine (1 of 2) 07/02/2013 Breast Cancer Screening-Mammogram 06/21/2022 022, 09/22/2015 Covid-19 Vaccine ( season) 2023 Influenza Vaccine (#1) 2023 12/30/2016, 2008 Regular Well Visit/Exam 18-64 06/16/2024 06/17/2023, 05/18/2021 DTaP/Tdap/Td Vaccine (3 - Td or Tdap) 09/20/2029, 01/03/2009 Cervical Cancer Screening Discontinued 05/18/2021, 09/2015 Pneumococcal vaccine <65 Completed 03/19/2024 Procedures Procedure Name Priority Date/Time Associated Diagnosis Comments HISTOPLASMA ANTIBODY Routine 02/20/2024 10:22 AM AUDIO VISUAL COLLECTIONS COORDINATOR CT BODY OUTSIDE REFERENCE Routine 02/17/2024 11:45 AM AUDIO VISUAL COLLECTIONS COORDINATOR SCREENING MAMMOGRAM BILATERAL W RICHI Schedule Routine, Read Routine (OP Routine) 06/21/2021 3:05 PM CDT Encounter for screening mammogram for malignant neoplasm of breast PAP AND HIGH RISK HPV, REFLEX TO GENOTYPING Routine 05/18/2021 10:53 AM AUDIO VISUAL COLLECTIONS COORDINATOR Well woman exam from Last 3 Months or Most Recently Relevant to Health Maintenance Results * Histoplasma Antibody Blood (02/20/2024 10:22 AM AUDIO VISUAL COLLECTIONS COORDINATOR) Histoplasma Ab, yeast CF Negative Negative Carpio ref Lab Histoplasma Ab, Immunodiffusion Negative Negative KEY[facility] Comment: A negative complement fixation and immunodiffusion (CF/ID) result does not exclude the diagnosis of histoplasmosis. Repeat testing by CF/ID in 1-2 weeks if clinically indicated. Test Performed by: [facility] [address] [place] [address] Electronic Engineering Technician: Nicole Marcum Ph.D.; CLIA# [id number] Blood 02/20/2024 10:2 2 AM AUDIO VISUAL COLLECTIONS COORDINATOR 02/20/2024 10:43 AM AUDIO VISUAL COLLECTIONS COORDINATOR Donte Campuzano MD LAB MICROBIOLOGY - GENERA L ORDERABLES Final Result Performing Organization Address City/[facility]/ZIP Co de Phone Number KEYSHA [address] [place] [address] [place] [address] [facility] * CT Body Outside Reference (02/17/2024 11:45 AM AUDIO VISUAL COLLECTIONS COORDINATOR) Narrative RAD_[email or web address] - 02/20/2024 11:21 AM AUDIO VISUAL COLLECTIONS COORDINATOR This order has been auto-finalized and does not contain a result. us Provider Transcribed Order IMG CT PROCEDURES Fin al Result Performing Organization Address [facility] Co de Phone Number [id number] * Screening Mammogram Bilateral W Richi (06/21/2021 [...] age 40, based on guidelines of the [employer] (ACR Practice Parameter for the Performance of Screening and Diagnostic Mammography) and [employer]. For women [...] HPV, reflex to Genotyping (05/18/2021 10:53 AM AUDIO VISUAL COLLECTIONS COORDINATOR) Thin prep (Pap test) 05/18/2021 10:53 AM AUDIO VISUAL COLLECTIONS COORDINATOR 05/21/2021 10:53 AM AUDIO VISUAL COLLECTIONS COORDINATOR Narrative PATHOLOGY [facility] - 05/24/2021 11:29 AM AUDIO VISUAL COLLECTIONS COORDINATOR [facility] Department of Pathology [address] [place] [address] Final Report with Addendum Note to Patients: [...] the details. Patient Name: OBI GAMA Address: [address] [place] [address] [place] [id number] Gender: F : 1965 (Age: 55) Service: Laboratory Location: N : [id number] [facility] #: [id number] Patient Type: [facility] SPECIMEN Taken: 05/18/2021 Received: 05/21/2021 Accessioned:: 05/22/2021 Reported: 05/24/2021 Physician(s): Praveen Marie M.D. [facility] Diagnosis: Source of Specimen: SCREENING THIN PREP [...] determined by the Surgical Pathology Department at [facility] as part of an ongoing chief vendor quality program and in compliance with federally mandated [...] characteristics determined by the Surgical Pathology Department [facility]. It has not been cleared or approved by the U. S. Food and Drug Administration. Praveen Marie MD LAB CYTOLOGY ORDERABLES Final Result PATHOLOGY [facility] from Last 3 Months or Most Recently Relevant to Health Maintenance Insurance [facility] Advance Directives For more information, please contact: [phone] * Full Code (Latest Code Status on File) Date Activated Date Inactivated Comments 07/10/2023 10:13 AM 07/11/2023 5:04 AM * Full Code Date Activated Date Inactivated Comments 05/19/2022 4:50 AM 05/22/2022 5:19 PM Care Teams Binding End Stitcher Relationship Specialty Start Date End Date Bouchra Vickers MD [address] [address] PCP - General 01/18/19 Donte Campuzano MD [address] [facility] [address] [address] Consulting Physician Pulmonary Disease 05/22/22
--- OUTSIDE RECORDS SUMMARY | 2024-05-12 12:48 | XMS_ITS | Encounter Summary ---
Author Organization [facility] Care Team Providers Care Printed Circuit Board Assembler Name Role Phone Bouchra Vickers MD Primary Care Provider [phone] Sultan Elvin Mccartney MD Unavailable [phone] Donte Campuzano MD Unavailable [phone] Encounter Details Date Type Department Care Team (Latest Contact Info) Description 12/06/2015 Orders Only [facility] CLINCONV ProviderBlessing MD [address] [place] [address] Social History Tobacco Use Types Packs/Day Years Used Date Smoking Tobacco: Never Comments Unknown Sex and Gender Information Value Date Recorded Sex Assigned at Not on file Legal Sex Female 10:19 AM DATABASE ADMINISTRATION MANAGER Gender Identity Not on file Sexual [...] COVID: Suspected 03/13/2020 03/13/2020 03/14/2020 5:26 AM DATABASE ADMINISTRATION MANAGER COVID19 03/13/2020 03/13/2020 03/27/2020 3:07 AM DATABASE ADMINISTRATION MANAGER COVID: Suspected 03/09/2021 03/09/2021 03/10/2021 3:52 AM DATABASE ADMINISTRATION MANAGER COVID: Suspected 04/13/2021 04/13/2021 04/13/2021 11:35 PM DATABASE ADMINISTRATION MANAGER COVID19 04/13/2021 04/13/2021 04/23/2021 3:05 AM DATABASE ADMINISTRATION MANAGER COVID: Recovered Comment:Added based on recent COVID infection. 04/23/2021 04/27/2021 08/21/2021 3:07 AM C DT COVID: Suspected 05/18/2022 05/18/2022 05/18/2022 9:56 PM DATABASE ADMINISTRATION MANAGER documented as of this encounter Care Teams Printed Circuit Board Assembler Relationship Specialty Start Date End Date Bouchra Vickers MD [address] [address] PCP - General 01/18/19 Sultan Elvin Mccartney MD [address] [facility] [address] [address] Consulting Physician Cardiovascular Disease 05/22/22 Donte Campuzano MD [address] [facility] [address] [place] [address] [place] [address] Consulting Physician Pulmonary Disease 05/22/22 documented as of this encounter
== END 2024-05-12 12:41 | disposition home or self-care (01) ==
PROVIDERS: PCP Family Medicine; Visit Provider Internal Medicine Pulmonary Disease
DX: R91.8 Other nonspecific abnormal finding of lung field (principal); J43.9 Emphysema, unspecified
CPT/HCPCS: 71250

== ENCOUNTER 2024-09-22 06:56 | Outpatient (CLI) | payer OTHER, SELFPAY ==
--- NOTE | ~2024-09-22 | US_ITS ---
US pelvic complete w TV Ordering provider: Praveen Marie, History: . PELVIC MASS . Comparison: None. Technique: Transabdominal and endovaginal ultrasound of the pelvis (Doppler ultrasound interrogation techniques used as needed for this exam.) FINDINGS: UTERUS: Status post surgical removal. CUL DE SAC: No free fluid. RIGHT OVARY: Not visualized. LEFT OVARY: Not visualized. ADNEXA: Normal. No mass. IMPRESSION: Status post hysterectomy. The ovaries are not visualized on this study. Reviewed, dictated and finalized at location A.
== END 2024-09-22 06:57 | disposition home or self-care (01) ==
PROVIDERS: PCP Family Medicine; Visit Provider Obstetrics & Gynecology
DX: R19.00 Intra-abdominal and pelvic swelling, mass and lump, unspecified site (principal); Z90.710 Acquired absence of both cervix and uterus
CPT/HCPCS: 76830; 76856

== ENCOUNTER 2024-11-22 16:28 | Outpatient (CLI) | payer OTHER, SELFPAY ==
--- NOTE | ~2024-11-22 | CT_ITS ---
EXAMINATION: CT diagnostic chest wo con DATE: 11/22/2024 16:49 INDICATION: Pulmonary nodule TECHNIQUE: Computed tomography (CT) of the chest was performed without intravenous contrast. The dose-length product was 139.51 mGy-cm. COMPARISON: Chest CTs from 05/12/2024, 02/17/2024, 09/17/2023, 05/28/2023 and 11/25/2022 FINDINGS: No enlarged mediastinal or hilar lymph nodes. Heart is not enlarged. Cholecystectomy. Pneumobilia similar to the prior study presumably due to previous cholecystectomy. Thoracic aorta is not aneurysmal. Tracheobronchial tree is patent. No pneumothorax. No pleural effusion. No pulmonary mass. There are a few small bandlike opacities in the lower lungs, unchanged. Mild centrilobular emphysema, unchanged. Stable 4 mm pulmonary nodule in the right lower lobe. New 5 mm subpleural density in the right lower lobe. Multilevel degenerative change in the visualized spine most prominent in the lumbar spine. IMPRESSION: 1. New 5 mm subpleural density in the right lower lobe. Differential includes atelectasis/scarring or a pulmonary nodule. A follow-up chest CT in 3 months is recommended. 2. Stable 4 mm pulmonary nodule in the right lower lobe. Reviewed, dictated and finalized at location Q. IMPRESSION: 1. New 5 mm subpleural density in the right lower lobe. Differential includes a telectasis/scarring or a pulmonary nodule. A follow-up chest CT in 3 months is recommended. 2. Stable 4 mm pulmonary nodule in the right lower lobe.
--- OUTSIDE RECORDS SUMMARY | 2024-11-22 16:35 | XMS_ITS | Encounter Summary ---
Author Organization [facility] Facility Care Team Providers Care Grant Manager Name Role Phone Bouchra Vickers MD Primary Care Provider [phone] Sultan Elvin Mccartney MD Unavailable [phone] Donte Campuzano MD Unavailable [phone] Encounter Details Date Type Department Care Team (Latest Contact Info) Description 12/06/2015 Orders Only [facility] CLINCONV ProviderBlessing MD [address] [place] [address] Social History Tobacco Use Types Packs/Day Years Used Date Smoking Tobacco: Never Comments Unknown Sex and Gender Information Value Date Recorded Sex Assigned at Not on file Legal Sex Female 10:19 AM INTERNET SALES CONSULTANT Gender Identity Not on file Sexual Orientation [...] COVID: Suspected 03/13/2020 03/13/2020 03/14/2020 5:26 AM INTERNET SALES CONSULTANT COVID19 03/13/2020 03/13/2020 03/27/2020 3:07 AM INTERNET SALES CONSULTANT COVID: Suspected 03/09/2021 03/09/2021 03/10/2021 3:52 AM INTERNET SALES CONSULTANT COVID: Suspected 04/13/2021 04/13/2021 04/13/2021 11:35 PM INTERNET SALES CONSULTANT COVID19 04/13/2021 04/13/2021 04/23/2021 3:05 AM INTERNET SALES CONSULTANT COVID: Recovered Comment:Added based on recent COVID infection. 04/23/2021 04/27/2021 08/21/2021 3:07 AM C DT COVID: Suspected 05/18/2022 05/18/2022 05/18/2022 9:56 PM INTERNET SALES CONSULTANT documented as of this encounter Care Teams Grant Manager Relationship Specialty Start Date End Date Bouchra Vickers MD [address] [address] PCP - General 01/18/19 Sultan Elvin Mccartney MD [address] [facility] [address] [place] [address] [address] Consulting Physician Cardiovascular Disease 05/22/22 Donte Campuzano MD [address] [facility] [address] [place] [address] Consulting Physician Pulmonary Disease 05/22/22 documented as of this encounter
--- OUTSIDE RECORDS SUMMARY | 2024-11-22 16:36 | XMS_ITS | Clinical Summary ---
Author Organization [facility] Address [address] [place] [address] Care Team Providers Care Pound Attendant Name Role Phone Unavailable Primary Care Provider [...] Screening with HPV 07/02/1993 Mammogram Screening 2003 Pneumococcal Vaccine: 50+ Ye ars (1 of 1 - PCV) 07/02/2013 Zoster Vaccines (1 of 2) 07/02/2013 COVID-19 Vaccine (2023-2 5 season) 2023 RSV Immunization or 60+ Years (1 [...]
--- OUTSIDE RECORDS SUMMARY | 2024-11-22 16:36 | XMS_ITS | Clinical Summary ---
Author Organization [facility] Office Center Address [address] [place] [address] Care Team Providers Care Broadcast Engineer Name Role Phone Bouchra Vickers MD Primary Care Provider [phone] Donte Campuzano MD Unavailable [phone] Allergies Active Allergy Reactions Criticality Noted Date Comments Adhesive Rash Medium 04/06/2021 red rash, burning Sumatriptan Anaphylaxis High Zolmitriptan Anaphylaxis High 04/06/2021 Throat Swelling, Medications metoprolol XL (TOPROL-XL) 50 mg extended release tablet Take 1 tablet (50 mg total) by mouth daily Active FLUoxetine (PROzac) 60 mg tablet Take 1 tablet (60 mg total) by mouth 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 Active nitroglycerin (NITROSTAT) 0.4 mg [...] ML UNDER THE SKIN EVERY MONTH Active fluticasone propionate (FLONASE) 50 mcg/actuation nasal sprayIndicatio ns:Centrilobul ar emphysema (HCC) Administer 2 sprays into each nostril daily 16 g 6 024 Active Additional Information Patient not taking.Reported on 09/03/2024 predniSONE (DELTASONE) 5 mg tablet Take 3 tabs qam 90 tablet 2 024 Active Additional Information Patient not taking.Reported on 09/03/2024 omeprazole (PriLOSEC) 20 mg capsuleIndicat ions:Gastroeso phageal reflux disease without esophagitis TAKE 2 CAPSULES(40 MG) BY MOUTH DAILY 30 capsule 025 Active estradioL (ESTRACE) 0.5 mg tabletIndicati ons:Menopausal symptoms Take 1 tablet (0.5 mg total) by mouth daily 30 tablet 3 025 2025 Active Breztri Aerosphere 160-9-4.8 mcg/actuation inhaler INHALE 2 PUFFS BY MOUTH TWICE DAILY 10.7 g 4 025 Active budesonide-gly copyr-formoter ol (Breztri Aerosphere) 160-9-4.8 mcg/actuation inhaler INHALE 2 PUFFS BY MOUTH TWICE DAILY 10.7 g 4 024 2024 Discontinued Active Problems Problem Noted Date Diagnosed Date Pulmonary nodules 07/17/2023 Assessment & Plan (06/04/2024 7:55 AM PORTAL DEVELOPER): The patient had 1 of the right lower lobe nodules biopsied in June 2023 and revealed noncaseating granulomatous inflammation. I followed that with a BAL of the right lower lobe and the fungal and AFB cultures were negative. 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 The nodules have been stable over the last 3 months. I will repeat another chest CT in 6 months and she will follow up with Dr. Martinez. Assessment & Plan (02/20/2024 9:44 AM PORTAL DEVELOPER): The patient did have the largest right [...] appointment. The CT will be performed at [facility]. 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 I will repeat another chest CT in 2 weeks and she will follow up here in 4 weeks. Centrilobular emphysema 05/30/2023 Assessment & Plan (05/28/2024 9:48 AM PORTAL DEVELOPER): The patient had a recent influenza infection but is recovering. She continues on Breztri 2 puffs b.i.d. and has an albuterol rescue inhaler use p.r.n.. Assessment & Plan (02/20/2024 9:43 AM PORTAL DEVELOPER): The patient never smoked and does have [...] secretions. Assessment & Plan (05/30/2023 10:16 AM PORTAL DEVELOPER): She states that she is requiring her albuterol inhaler more often. She will continue with breztri 2 puffs b.i.d. and I will check full PFTs at [facility] and start Mucinex 600 mg p.o. b.i.d. to help thin the secretions I did recommend she increase her fluid intake. Chronic cough 07/26/2022 Assessment & Plan (07/26/2022 10:06 AM CDT): The patient did have an elevated IgE but would like to hold off on treating that at this time. The patient states the cough is better with the Breztri. Gastroesophageal reflux disease without esophagi tis 06/12/2022 Assessment & Plan (05/28/2024 9:49 AM PORTAL DEVELOPER): Her reflux is being controlled with omeprazole 40 mg daily. Assessment & Plan (02/20/2024 9:44 AM PORTAL DEVELOPER): She has been having increased reflux symptoms [...] Prilosec Assessment & Plan (05/30/2023 10:16 AM PORTAL DEVELOPER): She continues on a proton pump inhibitor [...] prolapse 05/19/2022 Acute respiratory failure with hypoxia Bronchitis with acute wheezing 05/19/2022 Mucus plugging [...] a spacer to use with her inhalers. Pulmonary nodule 06/12/2022 05/28/2024 Assessment & Plan (08/15/2023 10:45 AM CDT): [...] week. Assessment & Plan (05/30/2023 10:15 AM PORTAL DEVELOPER): The original 6 mm right lower lobe [...] November 2023. She does complete these at [facility]. I have given the patient an order to have the CT scan completed. The patient is also going to flower buncher or picker the disc from the CT scan at [facility] in May for [facility] to compare. Assessment & Plan (07/26/2022 10:05 AM CDT): I have ordered a CT scan of the chest for October of 2022. Assessment & Plan (06/12/2022 3:55 PM CDT): I have ordered a CT scan of the chest for October of 2022. Encounters Date Type Department Care Team Description 09/03/2024 9:30 AM CDT Office Visit [facility] Medical [facility] Obstetrical Gynecology [address] [facility] [address] [place] [address] Praveen Marie MD Well woman exam (Primary Dx); Pelvic mass; Menopausal symptoms; Encounter for screening mammogram for malignant neoplasm of breast; Vaginal atrophy from Last 3 Months Immunizations Immunization Administration Dates Next Due Pneumococcal Conjugate Pcv20 03/19/2024 Surgical History Surgery Date Site/Laterality Comments HYSTERECTOMY CHOLECYSTECTOMY BLADDER SUSPENSION LUNG BIOPSY 07/10/2023 BRONCHOSCOPY 07/30/2023 - 08/29/2023 Medical History Medical History Date Comments Mitral valve prolapse Esophageal spasm takes tng for t x Migraine no longer Mood disorder IBS (irritable bowel syndrome) Emphysema lung Pulmonary sarcoidosis MVP (mitral valve prolapse) take s metoprolol [...] often do you have a drink containing alc ohol? Monthly or less 08/01/2023 Average Number of Drinks Not on file 024 Frequency of Binge Drinking Not on file 05/2023 Personal Safety Answer Date Recorded Have you ever been in or are you currently in a harmful physical or emotional relationship or is someone making you feel afraid or unsafe? Denies 08/01/2023 Comments No Sex and Gender Information Value Date Recorded Sex Assigned at Not on file Legal Sex Female 10:19 AM PORTAL DEVELOPER Gender Identity Not on file Sexual [...] Sign Reading Time Taken Comments Blood Pressure 112/64 09/03/2024 9:27 AM CDT Pulse 53 05/28/2024 9:17 AM PORTAL DEVELOPER Temperature 36.7 C (98.1 F) 05/28/2024 9:17 AM PORTAL DEVELOPER Respiratory Rate 18 05/28/2024 9:17 AM PORTAL DEVELOPER Oxygen Saturation 97% 05/28/2024 9:17 AM PORTAL DEVELOPER Inhaled Oxygen Concentration - - Weight 44.2 kg (97 lb 6.4 oz) 09/03/2024 9:27 AM CDT Height 160 cm (5' 3) 09/03/2024 9:27 AM CDT Body Mass Index 17.25 09/03/2024 9:27 AM CDT Plan of Treatment Health Maintenance Due Date Last Done Comments Colon Cancer Screening-Colonoscopy 1965 Depression Screening 1965 Hepatitis C Screening 1965 Hepatitis B Screening 07/02/1981 Zoster Vaccine (1 of 2) 07/02/2013 Breast Cancer Screening-Mammogram 06/21/2022 022, 09/22/2015 Covid-19 Vaccine (2 - 2023-2 5 season) 2023 10/24/2020 Influenza Vaccine (#1) 2024 , 12/30/2016, 01/03/2009 Regular Well Visit/Exam 18-64 09/03/2025, 06/17/2023, 05/18/2021 DTaP/Tdap/Td Vaccine (3 - Td or Tdap) 09/20/2029 09/21/2019, 01/03/2009 Cervical Cancer Screening Discontinued 05/18/2021, 09/2015 Pneumococcal vaccine <65 Completed 03/19/2024 Procedures Procedure Name Priority Date/Time Associated Diagnosis Comments SCREENING MAMMOGRAM BILATERAL W DANIEL Schedule Routine, Read Routine (OP Routine) 06/21/2021 3:05 PM CDT Encounter for screening mammogram for malignant neoplasm of breast PAP AND HIGH RISK HPV, REFLEX TO GENOTYPING Routine 05/18/2021 10:53 AM PORTAL DEVELOPER Well woman exam from Last 3 Months or Most Recently Relevant to Health Maintenance Results * Screening Mammogram Bilateral W Daniel (06/21/2021 3:05 PM CDT) Anatomical Region Laterality [...] age 40, based on guidelines of the [place] [employer] (ACR Practice Parameter for the Performance of Screening and Diagnostic Mammography) and [place] [employer]nec[employer]. For women with and elevated risk of breast cancer, please refer to the ACR Practice Parameter for specific screening recommendations. The patient will be entered into a reminder system with a target due date of 1 year for her next screening exam. Narrative 06/21/2021 3:19 PM CDT Screening Mammogram Bilateral W Daniel: 06/21/21 The study was acquired using full [...] Hx. COMPARISONS: 09/22/2015 Screening Mammogram Bilateral W Daniel BREAST TISSUE: The breasts have scattered areas of fibroglandular density. FINDINGS: No suspicious masses, suspicious calcifications, or other suspicious findings are seen within either breast. There has been no suspicious change. Praveen Marie MD IM MAMMO PROCEDURES Fi nal Result * Pap and High Risk HPV, reflex to Genotyping (05/18/2021 10:53 AM PORTAL DEVELOPER) Thin prep (Pap test) 05/18/2021 10:53 AM PORTAL DEVELOPER 05/21/2021 10:53 AM PORTAL DEVELOPER Narrative PATHOLOGY [facility] - 05/24/2021 11:29 AM PORTAL DEVELOPER [facility] Department of Pathology [address] [place] [address] Final Report with Addendum Note to Patients: [...] the details. Patient Name: OBI GAMA Address: [address] [place] [address] Gender: F : 1965 (Age: 55) Service: Laboratory Location: [facility] #: [id number] Patient Type: [facility] SPECIMEN Taken: 05/18/2021 Received: 05/21/2021 Accessioned:: 05/22/2021 Reported: 05/24/2021 Physician(s): Praveen Marie M.D. [facility] Diagnosis: Source of Specimen: SCREENING THIN [...] determined by the Surgical Pathology Department at [facility] as part of an ongoing head of quality program and in compliance with federally [...] determined by the Surgical Pathology Department [facility]. It has not been cleared or approved by the U. S. Food and Drug Administration. Praveen Marie MD LAB CYTOLOGY ORDERABLES Final Result [facility] from Last 3 Months or Most Recently Relevant to Health Maintenance Insurance [facility] H[facility]/PPO Address: [place] [address] [facility] H[facility]/PPO Address: [place] [address] [facility] H[facility]/PPO Address: [place] [address] Advance Directives For more information, please contact: [phone] * Full Code (Latest Code Status on File) Date Activated Date Inactivated Comments 07/10/2023 10:13 AM 07/11/2023 5:04 AM * Full Code Date Activated Date Inactivated Comments 05/19/2022 4:50 AM 05/22/2022 5:19 PM Care Teams Broadcast Engineer Relationship Specialty Start Date End Date Bouchra Vickers MD [address] [address] PCP - General 01/18/19 Donte Campuzano MD [address] [facility] [address] [place] [address] Consulting Physician Pulmonary Disease 05/22/22
== END 2024-11-22 16:29 | disposition home or self-care (01) ==
PROVIDERS: PCP Family Medicine; Visit Provider Internal Medicine Pulmonary Disease
DX: R91.8 Other nonspecific abnormal finding of lung field (principal); J98.4 Other disorders of lung; R91.1 Solitary pulmonary nodule
CPT/HCPCS: 71250

== ENCOUNTER 2024-12-24 08:00 | Outpatient (CLI) | payer OTHER, SELFPAY ==
--- OUTSIDE RECORDS SUMMARY | 2024-12-24 08:03 | XMS_ITS | Encounter Summary ---
Author Organization [facility] Facility Care Team Providers Care Strike Warfare/Missile Systems Officer Name Role Phone Bouchra Vickers MD Primary Care Provider [phone] Sultan Elvin Mccartney MD Unavailable [phone] Donte Campuzano MD Unavailable [phone] Encounter Details Date Type Department Care Team (Latest Contact Info) Description 12/06/2015 Orders Only [facility] CLINCONV ProviderBlessing MD [address] [place] [address] Social History Tobacco Use Types Packs/Day Years Used Date Smoking Tobacco: Never Comments Unknown Sex and Gender Information Value Date Recorded Sex Assigned at Not on file Legal Sex Female 10:19 AM BOTTLE HOUSE PUMPER Gender Identity Not on file Sexual Orientation [...] COVID: Suspected 03/13/2020 03/13/2020 03/14/2020 5:26 AM BOTTLE HOUSE PUMPER COVID19 03/13/2020 03/13/2020 03/27/2020 3:07 AM BOTTLE HOUSE PUMPER COVID: Suspected 03/09/2021 03/09/2021 03/10/2021 3:52 AM BOTTLE HOUSE PUMPER COVID: Suspected 04/13/2021 04/13/2021 04/13/2021 11:35 PM BOTTLE HOUSE PUMPER COVID19 04/13/2021 04/13/2021 04/23/2021 3:05 AM BOTTLE HOUSE PUMPER COVID: Recovered Comment:Added based on recent COVID infection. 04/23/2021 04/27/2021 08/21/2021 3:07 AM C DT COVID: Suspected 05/18/2022 05/18/2022 05/18/2022 9:56 PM BOTTLE HOUSE PUMPER documented as of this encounter Care Teams Strike Warfare/Missile Systems Officer Relationship Specialty Start Date End Date Bouchra Vickers MD [address] [address] PCP - General 01/18/19 Sultan Elvin Mccartney MD [address] [facility] [address] [address] [address] Consulting Physician Cardiovascular Disease 05/22/22 Donte Campuzano MD [address] [facility] [address] [place] [address] Consulting Physician Pulmonary Disease 05/22/22 documented as of this encounter
--- OUTSIDE RECORDS SUMMARY | 2024-12-24 08:03 | XMS_ITS | Clinical Summary ---
Author Organization [facility] Office Center Address [address] [place] [address] Care Team Providers Care Plant Manager Name Role Phone Bouchra Vickers MD Primary Care Provider [phone] Donte Campuzano MD Unavailable [phone] Allergies Active Allergy Reactions Criticality Noted Date Comments Adhesive Rash Medium 04/06/2021 red rash, burning Sumatriptan Anaphylaxis High Zolmitriptan Anaphylaxis High 04/06/2021 Throat Swelling, Medications metoprolol XL (TOPROL-XL) 50 mg extended release tablet Take 1 tablet (50 mg total) by mouth daily Active FLUoxetine (PROzac) 60 mg tablet Take 1 tablet (60 mg total) by mouth director report 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 Active nitroglycerin (NITROSTAT) 0.4 mg [...] (FLONASE) 50 mcg/actuation nasal sprayIndication s:Centrilobular emphysema Administer 2 sprays into each nostril daily 16 g 6 04/17/20 24 Active Additional Information Patient not taking.Reason: Other, Reported on 11/25/2024 predniSONE (DELTASONE) 5 mg tablet Take 3 tabs qam 90 tablet 2 10/22/19 24 Active Additional Information Patient not taking.Reason: Other, Reported on 11/25/2024 omeprazole (PriLOSEC) 20 mg capsuleIndicati ons:Gastroesoph ageal reflux disease without esophagitis TAKE 2 CAPSULES(40 MG) BY MOUTH DAILY 30 capsule 04/01/19 25 Active estradioL (ESTRACE) 0.5 mg tabletIndicatio ns:Menopausal symptoms Take 1 tablet (0.5 mg total) by mouth daily 30 tablet 3 10/08/19 25 026 Active Breztri Aerosphere 160-9-4.8 mcg/actuation inhaler INHALE 2 PUFFS BY MOUTH TWICE DAILY 10.7 g 4 11/20/19 25 Active Bifidobacterium longum (ALIGN, B.LONGUM, ORAL) Take by mouth Active Active Problems Problem Noted Date Diagnosed Date Pulmonary nodules 07/17/2023 Assessment & Plan (06/04/2024 7:55 AM OPTIMIZATION CONSULTANT): The patient had 1 of the right [...] Martinez. Assessment & Plan (02/20/2024 9:44 AM OPTIMIZATION CONSULTANT): The patient did have the largest right [...] appointment. The CT will be performed at [facility]. 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 I will repeat another chest CT in 2 weeks and she will follow up here in 4 weeks. Centrilobular emphysema 05/30/2023 Assessment & Plan (05/28/2024 9:48 AM OPTIMIZATION CONSULTANT): The patient had a recent influenza infection but is recovering. She continues on Breztri 2 puffs b.i.d. and has an albuterol rescue inhaler use p.r.n.. Assessment & Plan (02/20/2024 9:43 AM OPTIMIZATION CONSULTANT): The patient never smoked and does have [...] secretions. Assessment & Plan (05/30/2023 10:16 AM OPTIMIZATION CONSULTANT): She states that she is requiring her albuterol inhaler more often. She will continue with breztri 2 puffs b.i.d. and I will check full PFTs at [facility] and start Mucinex 600 mg p.o. [...] 06/12/2022 Assessment & Plan (05/28/2024 9:49 AM OPTIMIZATION CONSULTANT): Her reflux is being controlled with omeprazole 40 mg daily. Assessment & Plan (02/20/2024 9:44 AM OPTIMIZATION CONSULTANT): She has been having increased reflux symptoms [...] Prilosec Assessment & Plan (05/30/2023 10:16 AM OPTIMIZATION CONSULTANT): She continues on a proton pump inhibitor [...] week. Assessment & Plan (05/30/2023 10:15 AM OPTIMIZATION CONSULTANT): The original 6 mm right lower lobe [...] November 2023. She does complete these at [facility]. I have given the patient an order to have the CT scan completed. The patient is also going to belt picker the disc from the CT scan at [facility] in May for [facility] to compare. Assessment & Plan (07/26/2022 10:05 AM CDT): I have ordered a CT scan of the chest for October of 2022. Assessment & Plan (06/12/2022 3:55 PM CDT): I have ordered a CT scan of the chest for October of 2022. Encounters Date Type Department Care Team Description 11/25/2024 9:15 AM CDT Office Visit [facility] Medical Group Pulmonology [address] [facility] [address] [place] [address] Emeli Martinez MD Centrilobular emphysema (HCC) (Primary Dx); Lung nodule; Pulmonary sarcoidosis 11/22/2024 4:45 PM CDT - 11/22/2024 11:59 PM CDT Hospital Encounter [facility] [employer] [address] [facility] [place] [address] Discharge Disposition: Discharge to home or self care from Last 3 Months Immunizations Immunization Administration [...] on file Legal Sex Female 10:19 AM OPTIMIZATION CONSULTANT Gender Identity Not on file Sexual [...] Sign Reading Time Taken Comments Blood Pressure 118/72 11/25/2024 8:49 AM CDT Pulse 70 11/25/2024 8:49 AM CDT Temperature 37.1 C (98.8 F) 11/25/2024 8:49 AM CDT Respiratory Rate 15 11/25/2024 8:49 AM CDT Oxygen Saturation 97% 11/25/2024 8:49 AM CDT Inhaled Oxygen Concentration - - Weight 45.2 kg (99 lb 9.6 oz) 11/25/2024 8:49 AM CDT Height 160 cm (5' 3) 11/25/2024 8:49 AM CDT Body Mass Index 17.64 11/25/2024 8:49 AM CDT Plan of Treatment Health Maintenance Due Date Last Done Comments Colon Cancer Screening-Colonoscopy 1965 Depression Screening 1965 Hepatitis C Screening 1965 Hepatitis B Screening 07/02/1981 Zoster Vaccine (1 of 2) 07/02/2013 Breast Cancer Screening-Mammogram 06/21/2022 022, 09/22/2015 Covid-19 Vaccine (2 - 2024-2 6 season) 2024 10/24/2020 Influenza Vaccine (#1) 2024 , 12/30/2016, 01/03/2009 Regular Well Visit/Exam 18-64 09/03/2025, 06/17/2023, 05/18/2021 DTaP/Tdap/Td Vaccine (3 - Td or Tdap) 09/20/2029 09/21/2019, 01/03/2009 Cervical Cancer Screening Discontinued 05/18/2021, 09/2015 Pneumococcal vaccine <65 Completed 03/19/2024 Procedures Procedure Name Priority Date/Time Associated Diagnosis Comments CT BODY OUTSIDE REFERENCE Routine 11/22/2024 4:45 PM CDT SCREENING MAMMOGRAM BILATERAL W RICHI Schedule Routine, Read Routine (OP Routine) 06/21/2021 3:05 PM CDT Encounter for screening mammogram for malignant neoplasm of breast PAP AND HIGH RISK HPV, REFLEX TO GENOTYPING Routine 05/18/2021 10:53 AM OPTIMIZATION CONSULTANT Well woman exam from Last 3 Months or Most Recently Relevant to Health Maintenance Results * CT Body Outside Reference (11/22/2024 4:45 PM CDT) Narrative [facility] - 11/30/2024 1:40 PM CDT This order has been auto-finalized and does not contain a result. us Provider Transcribed Order IMG CT PROCEDURES Fin al Result [facility] * Screening Mammogram Bilateral W Richi (06/21/2021 [...] age 40, based on guidelines of the [employer] [place] [employer] (ACR Practice Parameter for the Performance of Screening and Diagnostic Mammography) and [employer] [place] [employer]nec[employer]. For women [...] HPV, reflex to Genotyping (05/18/2021 10:53 AM OPTIMIZATION CONSULTANT) Thin prep (Pap test) 05/18/2021 10:53 AM OPTIMIZATION CONSULTANT 05/21/2021 10:53 AM OPTIMIZATION CONSULTANT Narrative PATHOLOGY [facility] - 05/24/2021 11:29 AM OPTIMIZATION CONSULTANT [facility] Department of Pathology [address] [place] [address] Final Report with Addendum Note to Patients: [...] the details. Patient Name: OBI GAMA Address: [address] [place] [address] Gender: F : 1965 (Age: 55) Service: Laboratory Location: [facility] #: [id number] Patient Type: [facility] SPECIMEN Taken: 05/18/2021 Received: 05/21/2021 Accessioned:: 05/22/2021 Reported: 05/24/2021 Physician(s): Praveen Marie M.D. [facility] Diagnosis: Source of Specimen: SCREENING THIN PREP [...] by the Surgical Pathology Department at [facility] as part of an ongoing advanced quality engineer program and in compliance with [...] characteristics determined by the Surgical Pathology Department [facility]. It has not been cleared or approved by the U. S. Food and Drug Administration. Praveen Marie MD LAB CYTOLOGY ORDERABLES Final Result PATHOLOGY [facility] from Last 3 Months or Most Recently Relevant to Health Maintenance Insurance [facility] Advance Directives For more information, please contact: [phone] * Full Code (Latest Code Status on File) Date Activated Date Inactivated Comments 07/10/2023 10:13 AM 07/11/2023 5:04 AM * Full Code Date Activated Date Inactivated Comments 05/19/2022 4:50 AM 05/22/2022 5:19 PM Care Teams Plant Manager Relationship Specialty Start Date End Date Bouchra Vickers MD [address] [address] PCP - General 01/18/19 Donte Campuzano MD [address] [facility] [address] [address] Consulting Physician Pulmonary Disease 05/22/22
--- OUTSIDE RECORDS SUMMARY | 2024-12-24 08:04 | XMS_ITS | Clinical Summary ---
Author Organization [facility] Address [address] [place] [id number] Care Team Providers Care Financial Manager Name Role Phone Unavailable Primary Care [...] Vaccines (1 of 2) 07/02/2013 COVID-19 Vaccine ( - 2023-2 5 season) 2024 RSV Immunization or 60+ Years (1 - [...]
--- NOTE | 2024-12-24 13:33 | WPDPFTINT ---
PFT Procedure Performed PFT Procedure Performed Plethysmography (Lung Vol) Diffusing Cap (DLCO) Flow Vol Loop Spirometry w/o Bronchodil PFT Interpretation This is a pulmonary function test with spirometry, plethysmography and diffusing capacity. The test was performed and results interpreted in accordance with the 2019 and 2005 ATS/ERS Task Force guidelines respectively using the Global Lung Function Initiative-2012 reference equations. Patient demonstrated good effort and cooperation. Reproducibility criteria were met. The quality of the spirometry maneuver was Grade A. Findings: Spirometry: There is decreased maximal expiratory airflow at all lung volumes with concave expiratory flow tracing. The contour the inspiratory flow tracing is normal. The FVC is 2.55 L, 84% predicted. The FEV1 is 1.28 L, 54% predicted. The FEV1: FVC ratio is 50%. Plethysmography: The total lung capacity is 4.89 L, 100% predicted. The functional residual capacity is 3.44 L, 124% predicted. The residual volume is 2.35 L, 120% predicted. Diffusing capacity: The diffusing capacity unadjusted for hemoglobin and carboxyhemoglobin is 12.5, 59% predicted. The diffusing capacity adjusted for alveolar volume is 3.27, 73% predicted. Impression: There is a moderately severe obstructive abnormality. The lung volumes are normal. The diffusing capacity unadjusted for hemoglobin and carboxyhemoglobin is moderately decreased and normalizes when adjusted for alveolar volume. There are no prior studies for comparison
== END 2024-12-24 08:01 | disposition home or self-care (01) ==
LOC: ANHPFT 08:02
PROVIDERS: PCP Family Medicine
DX: R94.2 Abnormal results of pulmonary function studies (principal); J43.2 Centrilobular emphysema
CPT/HCPCS: 94375; 94726; 94729

== ENCOUNTER 2025-01-12 16:29 | Outpatient (CLI) | payer OTHER, SELFPAY ==
--- NOTE | ~2025-01-12 | CT_ITS ---
CT diagnostic chest wo con HISTORY:Centrilobular emphysema COMPARISON: 11/25/2022. TECHNIQUE: Axial images of the chest were obtained without infusion of intravenous contrast. Dose optimization technique was utilized. FINDINGS: The examination demonstrates central lobular emphysema are noted. There is a 3 mm pulmonary nodule within the right lower lobe. There is a 3 mm groundglass nodule within the right lower lobe measured on axial image 97. There is solid nodule within the right lung base measuring 6 mm. Cardiac size and mediastinal configuration are normal in appearance. No hilar or mediastinal lymphadenopathy is seen. The thoracic aorta is normal in caliber. Osseous structures are intact. Pneumobilia is noted. IMPRESSION: There are small pulmonary nodules unchanged from prior study within the right lower lobe. All CT scans at this facility are performed using low dose modulation techniques as appropriate to perform exam including the following: automated exposure control; use of iterative reconstruction technique; adjustment of the mA and/or kV according to patient size (this includes techniques or standardized protocols for targeted exams where dose is matched to indication/reason for exam). Reviewed, dictated and finalized at location S. IMPRESSION: There are small pulmonary nodules unchanged from prior study within the right l ower lobe. All CT scans at this facility are performed using low dose modulation techniqu es as appropriate to perform exam including the following: automated exposure c ontrol; use of iterative reconstruction technique; adjustment of the mA and/or kV according to patient size (this includes techniques or standardized protocol s for targeted exams where dose is matched to indication/reason for exam).
--- OUTSIDE RECORDS SUMMARY | 2025-01-12 17:47 | XMS_ITS | Clinical Summary ---
Author Organization [facility] at the [facility] Office Center Address [address] [place] [address] Care Team Providers Care Produce Associate Name Role Phone Bouchra Vickers MD Primary Care Provider [phone] Donte Campuzano MD Unavailable [phone] Allergies Active Allergy Reactions Criticality Noted Date Comments Adhesive Rash Medium 04/06/2021 red rash, burning Sumatriptan Anaphylaxis High Zolmitriptan Anaphylaxis High 04/06/2021 Throat Swelling, Medications metoprolol XL (TOPROL-XL) 50 mg extended release tablet Take 1 tablet (50 mg total) by mouth daily Active FLUoxetine (PROzac) 60 mg tablet Take 1 tablet (60 mg total) by mouth 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 Assessment & Plan (02/20/2024 9:44 AM CHILD DAY CARE TEACHER): The patient did have the largest right [...] appointment. The CT will be performed at [facility]. 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 I will repeat another chest CT in 2 weeks and she will follow up here in 4 weeks. Centrilobular emphysema 05/30/2023 Assessment & Plan (05/28/2024 9:48 AM CHILD DAY CARE TEACHER): The patient had a recent influenza infection but is recovering. She continues on Breztri 2 puffs b.i.d. and has an albuterol rescue inhaler use p.r.n.. Assessment & Plan (02/20/2024 9:43 AM CHILD DAY CARE TEACHER): The patient never smoked and does have [...] secretions. Assessment & Plan (05/30/2023 10:16 AM CHILD DAY CARE TEACHER): She states that she is requiring her albuterol inhaler more often. She will continue with breztri 2 puffs b.i.d. and I will check full PFTs at [facility] and start Mucinex 600 mg p.o. b.i.d. [...] 06/12/2022 Assessment & Plan (05/28/2024 9:49 AM CHILD DAY CARE TEACHER): Her reflux is being controlled with omeprazole 40 mg daily. Assessment & Plan (02/20/2024 9:44 AM CHILD DAY CARE TEACHER): She has been having increased reflux symptoms [...] Prilosec Assessment & Plan (05/30/2023 10:16 AM CHILD DAY CARE TEACHER): She continues on a proton pump inhibitor [...] week. Assessment & Plan (05/30/2023 10:15 AM CHILD DAY CARE TEACHER): The original 6 mm right lower lobe [...] November 2023. She does complete these at [facility]. I have given the patient an order to have the CT scan completed. 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 to compare. Assessment & Plan (07/26/2022 10:05 AM CDT): I have ordered a CT scan of the chest for October of 2022. Assessment & Plan (06/12/2022 3:55 PM CDT): I have ordered a CT scan of the chest for October of 2022. Encounters Date Type Department Care Team Description 11/25/2024 9:15 AM CDT Office Visit [facility] Pulmonology [address] [place] [address] Emeli Martinez MD Centrilobular emphysema (HCC) (Primary Dx); Lung nodule; Pulmonary sarcoidosis 11/22/2024 4:45 PM CDT - 11/22/2024 11:59 PM CDT Hospital Encounter [facility] [employer] [address] [place] [address] Discharge Disposition: Discharge to home or self [...] on file Legal Sex Female 10:19 AM CHILD DAY CARE TEACHER Gender Identity Not on file Sexual [...] REFLEX TO GENOTYPING Routine 05/18/2021 10:53 AM CHILD DAY CARE TEACHER Well woman exam from Last 3 Months [...] age 38, based on guidelines of the [employer] (ACR Practice Parameter for the Performance of Screening and Diagnostic Mammography) and [employer]. For women [...] HPV, reflex to Genotyping (05/18/2021 10:53 AM CHILD DAY CARE TEACHER) Thin prep (Pap test) 05/18/2021 10:53 AM CHILD DAY CARE TEACHER 05/21/2021 10:53 AM CHILD DAY CARE TEACHER Narrative PATHOLOGY [facility] - 05/24/2021 11:29 AM CHILD DAY CARE TEACHER [facility] Department of Pathology [address] [place] [address] Final Report with Addendum Note to Patients: [...] the details. Patient Name: OBI GAMA Address: [address] [place] [address] Gender: F : 1965 (Age: 55) Service: Laboratory Location: [facility] #: [id number] Patient Type: [facility] SPECIMEN Taken: 05/18/2021 Received: 05/21/2021 Accessioned:: 05/22/2021 Reported: 05/24/2021 Physician(s): Praveen Marie M.D. [facility] Diagnosis: Source of Specimen: SCREENING THIN PREP [...] determined by the Surgical Pathology Department at [facility] as part of an ongoing software quality assurance engineer program and in compliance with federally [...] characteristics determined by the Surgical Pathology Department [facility]. It has not been cleared or approved by the [place]. Food and Drug Administration. Praveen Marie MD LAB CYTOLOGY ORDERABLES Final Result PATHOLOGY [facility] from Last 3 Months or Most Recently Relevant to Health Maintenance Insurance [facility] Advance Directives For more information, please contact: [phone] * Full Code (Latest Code Status on File) Date Activated Date Inactivated Comments 07/10/2023 10:13 AM 07/11/2023 5:04 AM * Full Code Date Activated Date Inactivated Comments 05/19/2022 4:50 AM 05/22/2022 5:19 PM Care Teams Produce Associate Relationship Specialty Start Date End Date Bouchra Vickers MD [address] [address] PCP - General 01/18/19 Donte Campuzano MD [address] [facility] [address] [address] Consulting Physician Pulmonary Disease 05/22/22
--- OUTSIDE RECORDS SUMMARY | 2025-01-12 17:47 | XMS_ITS | Data Portability ---
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 Plan of Treatment Reminders Order Date Submit Date Provider Last Modified By Organization Details Last Modified Time Details Appointments MEDICARE WELLNESS VISIT 2024 10:30A Venus Gooden MD Not available Not available Not available Lab CMP, serum or plasma 2023 024 [facility] (Lab), [address] [place] [address], [id number], 03/26/2024 12:16:56 C reactive protein, QN, serum or plasma 2023 024 [facility] (Lab), [address] [place] [address], [id number], 05/07/2024 14:52:51 MARTIN (antinucl ear antibodie s) screen, ifa, serum 2023 024 [facility] (Lab), [address] [place] [address], [id number], 03/30/2024 15:39:54 rf (rheumato id factor) + anti-ccp abs, serum 2023 024 [facility] (Lab), [address] [place] [address], [id number], 03/26/2024 13:52:00 lipid panel, serum 2023 024 [facility] (Lab), [facility] [address], [place], [address], 03/26/2024 12:16:56 vitamin B12, serum 2023 024 [facility] (Lab), [facility] [address], [place], [address], 03/26/2024 12:16:56 CBC w/ auto diff 2023 024 [facility] (Lab), [address] [place] [address] [address], [place], [address], 03/26/2024 12:16:56 lipid panel, serum 2022 023 [facility] Outpatient Registration Lab/Ekg, [address] [place] [address] [address], [place], [address], 04/02/2023 12:10:29 CMP, serum or plasma 2022 023 [facility] Outpatient Registration Lab/Ekg, [address] [place] [address] [address], [place], [address], 04/02/2023 12:10:28 CBC w/ auto diff 2022 023 [facility] Outpatient Registration Lab/Ekg, [address] [place] [address] [address], [place], [address], 04/02/2023 12:10:29 vitamin B12, serum 2022 023 [facility] Outpatient Registration Lab/Ekg, [address] [place] [address] [address], [place], [address], 04/02/2023 12:10:29 urinalysi s complete, reflex culture [address] Outpatient Registration Lab/Ekg, [facility] [address], [place], [address], 05/28/2022 11:35:59 Referral None recorded. Procedures None recorded. Surgeries None recorded. Imaging XR, hand 2023 024 [facility] (Imaging), [address], [place], [address], 03/26/2024 17:21:43 Medication Orders metoprolo l succinate ER 50 mg tablet,ex tended release 24 hr 2022 023 VILLA RICA [id number], [address] [facility], [place], [place], [id number], 03/18/2023 11:36:15 Patient TargetsNo targets recorded. Patient Instructions Encounter Date Encounter Id Patient Instructions Last Modified By Organization Details Last Modified Time 05/28/2022 [id number] keep appt in Feb 2023 Not available 05/28/2022 13:51:08 01/06/2023 [id number] follow up in one month but advised to take off about 6 weeks from work to address grief issues Not available 01/06/2023 21:43:07 02/03/2023 [id number] keep appt for AWV-- follow up sooner as needed Not available 02/03/2023 19:40:49 03/18/2023 [id number] grief (actual/anticipat ed): care instructions Not available 03/19/2023 07:45:33 Reason for Referral None Reported. Results Created Date Observation Date Name Description Value Unit Range Abnormal Flag Note LastModifiedBy Organization Detail LastModifiedTime 06/26/1906/26/2023 gluco se, QN, venou s blood glucose 103 Not Available [facility] [address] [facility] [address], [place], [address], 06/30/2023 16:13:50 05/16/19 23 05/16/2022 XR, chest , 2 view No observ ation record ed. jaime Gama [facility] [address] [facility] , [place], [address], 05/31/2022 12:43:20 11/27/19 23 11/25/2022 LDCT, chest , for lung cance r scree shania No observ ation record ed. [address], [place], [address], 11/26/2022 17:54:57 05/28/19 24 05/28/2023 CT, chest , w/o contr ast No observ ation record ed. [address], [place], [address], 05/29/2023 08:11:37 06/26/19 24 06/17/2023 pulmo nary funct ion test proce dure (PROC ) No observ ation record ed. [facility] Not Available 2023 07:56:27 06/27/19 24 06/26/2023 PET-C T, skull base to mid-t high scan No observ ation record ed. [address] [address], [place], [address], 06/27/2023 11:56:57 09/18/19 24 09/17/2023 CT, chest , w/o contr ast No observ ation record ed. [address] [facility], [place], [address], 09/19/2023 14:11:49 03/26/20 24 03/26/2024 XR, hand No observ ation record ed. [address], [place], [address], 03/30/2024 20:28:09 05/12/19 25 05/12/2024 CT, chest , w/o contr ast No observ ation record ed. [address], [place], [address], 05/13/2024 09:57:57 09/23/19 25 09/22/2024 US, duple x, pelvi s, compl ete No observ ation record ed. [address], [place], [address], 09/22/2024 17:17:40 01/07/20 25 12/24/2024 pulmo nary funct ion test proce dure (PROC ) No observ ation record ed. Not Available 2024 12:39:09 Result Notes None recorded. Problems Name Problem SNOMED Code Status Onset Date Resolution Date Notes Provider Name and Address Organization Details Recorded Time Spasm of sphincte r of Oddi 50575863 Completed 201112/01/2011 Location : None;Sev erity: Moderate ;Progres s: Stable;A dded By: Bouchra Gooden;Add to Current Problems : NO Not Available [facility] 7 08:54:31 Premenst rual tension syndrome 74639825 Completed 201106/28/2019 Location : None;Sev erity: Moderate ;Progres s: Stable;A dded By: Bouchra Gooden;Add to Current Problems : YES Bouchra Gooden MD Attn: Accounting ,[address] [place], [place], [address] [place] [address] , [facility] 0 10:11:54 Irritabl e bowel syndrome 53208236 Active 2011 Location : None;Sev erity: Moderate ;Progres s: Stable;A dded By: Kathy Rust; Add to Current Problems : NO Bouchra Gooden MD Attn: Accounting ,[address], [place], [address] [place] [address] , [facility] 5 08:03:48 Migraine without aura 24785686 Active 2011 Location : None;Sev erity: Moderate ;Progres s: Stable;A dded By: Katyh Rust; Add to Current Problems : NO Not Available [facility] 4 02:00:33 Hypoglyc emia 077134087 Completed 201205/31/2012 Location : None;Sev erity: Moderate ;Progres s: Stable;A dded By: Bouchra Gooden;Add to Current Problems : NO Not Available [facility] 7 08:54:31 Hemangio ma of skin and subcutan eous tissue 605836471 Active 2013 Location : None;Sev erity: Moderate ;Progres s: Stable;A dded By: Bettie Cobos;Add to Current Problems : NO Not Available [facility] 4 02:00:33 Transharish t insomnia 873837885 Completed 201311/18/2013 Location : None;Sev erity: Moderate ;Progres s: Stable;A dded By: Ofe Lynn;Add to Current Problems : NO Not Available [facility] 7 08:54:32 Pain of joint of hand 527742621 Completed 201406/28/2019 Location : None;Sev erity: Moderate ;Progres s: Stable;A dded By: Bouchra Gooden;Add to Current Problems : YES Removal Reason: recovere naina Gooden MD Attn: [facility] ,[address] [place], [address] , [facility] 0 10:12:14 Slow transit constipa tion 32678450 Active 2014 Location : None;Sev erity: Moderate ;Progres s: Stable;A dded By: Bouchra Gooden;Add to Current Problems : YES Not Available [facility] 4 02:00:33 Dyssomni a 46898341 Completed 201401/07/2015 Location : None;Sev erity: Moderate ;Progres s: Stable;A dded By: Bouchra Gooden;Add to Current Problems : YES Not Available [facility] 7 08:54:31 Acquired hypothyr oidism 945436319 Active 2015 Location : None;Sev erity: Moderate ;Progres s: Stable;A dded By: Kathy Rust; Add to Current Problems : YES Not Available [facility] 4 02:00:33 Pain of multiple joints 22728556 Active 2015 Location : None;Sev erity: Moderate ;Progres s: Stable;A dded By: Bouchra Gooden;Add to Current Problems : YES Not Available [facility] 4 02:00:33 Non-rheu matic mitral valve disease 966195315 Active 2021 Not Available [facility] 4 02:00:33 Degenera tion of lumbar interver tebral disc 03428583 Active 2021 Not Available [facility] 4 02:00:33 Mild neurocog nitive disorder 801282493 Active 2021 Not Available [facility] 4 02:00:33 Cataract of right eye 862322172 Active 2021 Not Available [facility] 4 02:00:33 Family history of diabetes mellitus in first degree relative 609078298 Active 2021 Not Available [facility] 4 02:00:33 Cobalami n deficien cy 409255542 Active 2021 Not Available [facility] 4 02:00:33 Chronic obstruct marin pulmonar y disease 69736085 Active 2022 Not Available [facility] 4 02:00:33 Chronic cough 31411230 Active 2022 Bouchra Gooden MD Attn: Accounting ,[address], [place], [address] , [place] [facility] 4 12:49:14 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 700543890 Active 2022 Not Available [facility] 4 02:00:33 Difficul ty coping with grief response s 714914035 Active 2022 Not Available [facility] 4 02:00:33 Cervical spondylo sis without myelopat hy 363230797 Active 2022 Not Available [facility] 4 02:00:33 Pulmonar y sarcoido sis 91311886 Active 2023 Bouchra Gooden MD Attn: Accounting ,[address], [place], [address] , [place] [facility] 4 12:20:09 Multiple nodules of lung 941158830 Active 2023 abnormal -- with a new lesion 2.7 cm x 1,2 cm x 0.7 cm-- recheck in 3 months- most consiste nt with area of atelecta sis Bouchra Gooden MD Attn: Accounting ,[address], [place], [address] , [facility] - [facility] 08:03:48 Notes:Some problems listed i n Documents: #[id number], #[id number], #[id number] could not be added to this patient's chart. Please review these documents and add these problems to the patient's chart manually as needed. Problem Notes None recorded. Procedures Surgical History Date Name Laterality Status Provider Name and Address Organization Details Recorded Time 07/10/19 24 biopsy of lung completed Bouchra Gooden MD Attn: Accounting, [address] [place], [address], [facility] 07/22/2023 08:11:42 12/27/19 23 cataract surgery completed Bouchra Gooden MD Attn: Accounting, [address] [place], [address], [facility] 03/18/2023 11:18:43 06/23/19 22 Date of Last Mammogram completed Kenia Carter MA [place] - [facility] 03/19/2024 11:39:12 12/30/19 07 Cholecystectomy completed Bouchra Gooden MD Attn: Accounting, [address] [place], [address], [facility] 03/19/2024 12:35:14 08/30/19 05 Total hysterectomy completed Bouchra Gooden MD Attn: Accounting, [address] [place], [address], [facility] 03/19/2024 12:35:56 04/01/18 95 Tubal Ligation completed Bouchra Gooden MD Attn: Accounting, [address] [place], [address], [facility] 03/19/2024 12:36:16 03/31/18 90 Dilation and Curettage completed Bouchra Gooden MD Attn: Accounting, [address] [place], [address], [facility] 03/19/2024 12:32:10 Gastrointestinal Surgery completed Bouchra Gooden MD Attn: Accounting, [address], [place], [address], [facility] 11/28/2020 10:40:19 Imaging Results None recorded. Procedure Notes None recorded. Medical Equipment None Reported. Allergies Allergen ID Allergen Name Allergen Category Reaction Reaction Severity Criticality Documentation Date Start Date Code Code System Note Provider Name and Address Organization Details Recorded Time 817310 sumatript an medicatio n anaphylax is Not available Not available 03/19/2024 82662 RxNorm Bouchra Gooden MD Attn: Elias moy,[address], [place], [place], [address] [place] [address] 2, [facility] 4 12:47:49 732968 zolmitrip araujo medicatio n anaphylax is Not available Not available 03/19/20242021 84122 5 RxNorm Bouchra Gooden MD Attn: Elias g,[address] [facility], [place], [place], [address] [place] [address] 2, [facility] 4 12:47:49 194796 Adhesive agent (substanc e) environme nt,medica tion rash Not available Not available 03/19/20242021 43012 0007 SNOMED Bouchra Gooden MD Attn: Elias moy,[address] [facility], [place], [place], [address] [place] [address] 2, [facility] 4 12:47:49 Medications Name Sig Start Date Stop Date Status Note LastModified by Organization Details LastModified Time fluoxetine 40 mg capsule TAKE ONE CAPSULE BY MOUTH EVERY DAY 05/17 completed Not Available Not Available Not Available Miralax 17 gram/dose oral powder Dissolve 1 capful(s) in 8 ounces of water and drink daily 01/06 completed RxNor m: 02118 5;All ow Subst ituti on: True Not [...] capsules per day. 04/30 completed RxNor m: 94748 7;All ow Subst ituti on: True Not [...] by mouth daily 04/30 completed RxNor m: 03628 6;All ow Subst ituti on: True Not Available Not Available Not Available Imdur 60 mg tablet,exte nded release Take 1 tablet(s) by mouth qam 11/08 completed RxNor m: 76265 8;All ow Subst ituti on: True Not [...] Available omeprazole 20 mg capsule,del ayed release TAKE 1 CAPSULE BY MOUTH TWICE DAILY active Not Available Not Available No t Available chlordiazep oxide-clidi nium 5 mg-2.5 mg capsule Take 1 capsule(s ) by mouth qid-- AC adn at HS 10/30 completed Not Available Not Available Not [...] 2 times weekly 05/02 completed RxNor m: 49737 4;All ow Subst ituti on: True Not [...] cap po daily 10/18 completed RxNor m: 43061 1;All ow Subst ituti on: True Not [...] blood by Pulse oximetry Heart rate Systolic And Diastolic Provider Name and Address Organization Details Last Updated DateTime 3 158.75 cm 19.6 kg/m2 35681.5 7 g 97 [degF] 97 % 97 % 69 /min 100/70 mm[Hg] Nataly Ireland MA [facility] 3 10:48:55 Date Recorded Body height Body mass index (BMI) Body weight Body temperature Oxygen saturation Oxygen saturation in Arterial blood by Pulse oximetry Heart rate Systolic And Diastolic Provider Name and Address Organization Details Last Updated DateTime 3 158.75 cm 20 kg/m2 05665.1 5 g 98.2 [degF] 98 % 98 % 62 /min 119/67 mm[Hg] Ariel Salamanca MA [facility] 3 14:39:37 Date Recorded Body height Body mass index (BMI) Body weight Body temperature Oxygen saturation Oxygen saturation in Arterial blood by Pulse oximetry Heart rate Systolic And Diastolic Provider Name and Address Organization Details Last Updated DateTime 3 158.75 cm 20.2 kg/m2 88420.3 5 g 97.2 [degF] 95 % 95 % 47 /min 107/63 mm[Hg] Kenia Carter MA [facility] 3 15:35:11 Date Recorded Body height Body mass index (BMI) Body weight Body temperature Oxygen saturation Oxygen saturation in Arterial blood by Pulse oximetry Heart rate Systolic And Diastolic Provider Name and Address Organization Details Last Updated DateTime 3 158.75 cm 20.4 kg/m2 66371.7 4 g 97.6 [degF] 93 % 93 % 69 /min 116/67 mm[Hg] Ariel Salamanca MA [facility] 3 11:12:36 Date Recorded Body weight Body mass index (BMI) Body height Oxygen saturation Oxygen saturation in Arterial blood by Pulse oximetry Heart rate Body temperature Systolic And Diastolic Provider Name and Address Organization Details Last Updated DateTime 4 06676.8 3 g 18.2 kg/m2 158.75 cm 97 % 97 % 74 /min 97.1 [degF] 122/73 mm[Hg] Kenia Carter MA [facility] 4 11:35:34 Social History Question Answer Notes LastModified by Organizat ion Details LastModified Time Tobacco Smoking Status Never Smoker Neelima Cansa rahul, [place] - [facility] 05/02/2016 11:13:48 Do You Have An Advance Directive? No Information not available 11/28/2020 Are You Blind Or Do You Have Difficulty Seeing? No Has Cataract On Right Eye Information not available 11/28/2020 What Is Your Level Of Caffeine Consumption? Moderate Information not available 11/28/2020 In The 14 Days Before Symptom Onset, Have You Had Close Contact With A Laboratory-confir med COVID-19 While That Case Was Ill? No Information not available 11/28/2020 In The 14 Days Before Symptom Onset, Have You Had Close Contact With A Person Who Is Under Investigation For COVID-19 While That Person Was Ill? No Information not available 11/28/2020 Have You Been To An Area Known To Be High Risk For COVID-19? No Information not available 11/28/2020 Are You Deaf [...] You Passively Exposed To Smoke? No Information no t available 11/28/2020 Sex: Female Functional Status Question Answer Note LastModified by Organizat ion Details LastModified Time Do you use any illicit or recreational drugs? Yes cannibus gummies edibles Information not available 11/09/2021 Do you or have you ever used any other forms of tobacco or nicotine? No Information not available 11/09/2021 What is your level of alcohol consumption? Occasional Information not available 11/28/2020 Are you currently employed? Yes Information not available 11/28/2020 Are you able to care for yourself independently? Yes Information not available 11/28/2020 What is your exercise level? Occasional Information not available 11/28/2020 Mental Status Question Answer Note LastModified by Organization D etails LastModified Time Do you feel stressed (tense, restless, nervous, or anxious, or unable to sleep at night)? [id number] Information not available 11/28/2020 Family History Relationship Description Onset Age of [...] History Condition Response Coronary Artery Disease N Atrial Fibrillation N High Blood Pressure N Thyroid Problems Y Kidney or Bladder Problems N GI Problems Y Depression N COPD Y Blood Clots N Have you had a mammogram in the last yea r? N Eating Disorder N Skin Problems N Anemia N Heart Attack (OK) N [...] Liver Disease N Schizophrenia N Headaches Y Heart Failure N Osteoporosis N Gynecological History Statement/Question Response If Post Menopausal, Age at Menopause 39 Date of Last Mammogram 06/22/2021 Obstetrics History GPAL:G 2 P 2 0 0 2 Type Value Full Term 2 Living 2 Total 2 Immunizations Vaccine Type Date Status Note Provider Fermin alcantara and Address Organization Details Recorded Time COVID-19 vaccine, vector-nr, rS-Ad26, PF, 0.5 mL 1 completed Not Available [facility] 05/12/2023 02:00:34 Influenza, split virus, trivalent, preservative 9 completed Not Available [facility] 05/12/2023 02:00:34 Influenza, split virus, trivalent, PF 4 completed Bouchra Gooden MD Attn: Accounting[address] [place], [address], [place] [facility] 03/19/2024 12:47:12 Pneumococcal conjugate PCV20, polysaccharide QUE474 conjugate, adjuvant, PF 4 completed Bouchra Gooden MD Attn: Accounting[address] [place], [address], [place] [facility] 08/03/2024 08:04:01 Tdap 0 completed Shadi Garcia MA null, [place] [facility] 09/21/2019 14:44:46 Tdap 9 completed Not Available [facility] 05/12/2023 02:00:34 Influenza, split virus, quadrivalent, preservative 7 completed Not Available [facility] 05/12/2023 02:00:33 Past Encounters Encounter ID Performer Location Encounter Start Date Encounter Closed Date Diagnosis/Indication Diagnosis SNOMED-CT Code Diagnosis ICD10 Code Diagnosis IMO Codes Diagnosis Note [id number] Boucrha Gooden MD [facility] [address] [facility] [place] [address] 05/02/2016 11:04:24 05/03/2016 13:57:59 Acquired hypothyroidism 114321957 E03.9 mild cold intoleranc e, mild GI symptoms due to IBS but well controlled on other medication s, reflexes normal/sym metric bilaterall y, will maintain current regimen Mitral valve disorder 11 506013 I05.9 rate well controlled , patient reports episodes of palpitatio ns/increas ed sweating every 2-3 months, recommend taking an additional 0.5 tablet of metoprolol during these episodes, also refilling the prescripti on for the next 6 months Premenstru al tension syndrome 59953900 N94.3 mood symptoms well controlled on current regimen, will refill for next 6 months [id number] Bouchra Gooden MD [facility] [address] [place] [address] 10/30/2016 09:43:13 10/30/2016 13:27:43 Acquired hypothyroidism 091315580 E03.9 christal dose change-- levels at your convenienc e-- lab at [facility]-- employee Irritable bowel syndrome 61464788 K58.9 no med change-- cont to eat diet Mitral valve disorder 11 843288 I05.9 rate well controlled , patient reports episodes of palpitatio ns/increas ed sweating every 2-3 months, recommend taking an additional 0.5 tablet of metoprolol during these episodes, also refilling the prescripti on for the next 6 months Spasm of s phincter of Oddi 53111049 K83.4 I will assume refills of your chronic meds Premenstru al tension syndrome 50355680 N94.3 mood symptoms well controlled on current regimen, will refill for next 6 months Adult heal th examination 831218203 Z00.[address] Marie follow up Family his tory of diabetes mellitus in first degree relative 799902475 Z83.3 will check this given mother's history and your personal hx of hypoglycem ia-- lab at [facility]-- employee Screening for malignant neoplasm of colon 205936202 Z12.11 you refuse screening colon cancer-- stool testing or colonoscop y [id number] Bouchra Gooden MD [facility] [address] [place] [address] 05/02/2017 09:26:50 05/02/2017 14:59:25 Migraine without aura 02854930 G43.009 doing very well with no migraine related issues Acquired hypothyroidism 556550995 E03.9 no dose change-- levels to be rechecked in October at your convenienc e-- lab at [facility]-- employee Irritable bowel syndrome 31580907 K58.9 no med change-- cont to eat diet as to low gas forming and avoiding excess caffeine and other GI stimulants Pain of mu ltiple joints 20098083 M25.50 will try aleve for hand pain-- if not better or GI intoleranc e-- will let me know. Consider XRAYS if not improving with aleve or if progressiv e Premenstru al tension syndrome 25334252 N94.3 mood symptoms well controlled on current regimen [id number] Bouchra Gooden MD [facility] [address] [place] [address] 10/30/2017 11:29:01 10/31/2017 09:17:14 Irritable bowel syndrome 00346429 K58.9 no med change-- cont to eat diet as to low gas forming and avoiding excess caffeine and other GI stimulants Acquired hypothyroidism 350974779 E03.9 no dose change-- levels to be rechecked tomorrow at your convenien e-- lab at [facility]-- employee Migraine without aura 56 945781 G43.009 doing very well with no migraine related issues Spasm of s phincter of Oddi 24656312 K83.4 I will assume refills of your chronic meds Mitral valve disorder 11 683226 I05.9 rate well controlled , patient reports episodes of palpitatio ns/increas ed sweating every 2-3 months, recommend taking an additional 0.5 tablet of metoprolol during these episodes, also refilling the prescripti on for the next 6 months Hyperkalemia 34093511 E8 7.5 likely related to dehydratio n and intake of bananas before ER visit - will recheck for completene ss [id number] Bouchra Gooden MD [facility] [address] [place] [address] 05/13/2018 10:55:57 05/14/2018 08:21:11 Irritable bowel syndrome 65391771 K58.9 We discussed FODMAP awareness and to try foods low in FODMAP when flare up of IBS-- You need to get a COLONOSCOP Y-- set this up!! Adult heal th examination 600986755 Z00.[address] Marie follow up for gynecology exam Screening for malignant neoplasm of breast 825839360 Z12.39 Acquired hypothyroidism 870108002 E03.9 - levels to be rechecked tomorrow at your convenienc e-- lab at [facility]-- employee Migraine without aura 56 644641 G43.009 doing very well with no migraine related issues Mood disorder 79427467 F 39 increase the dose of FLUOXETINE due to the concern for the home situation [id number] Bouchra Gooden MD [facility] [address] [facility] [address] [place] [address] 05/17/2019 16:00:47 05/18/2019 08:50:40 Pain of right hand 5460777586 99610 M79.641 we will re xray due to reoccurrin g swelling. [id number] Bouchra Gooden MD [facility] [address] [place] [address] 06/28/2019 09:18:24 06/28/2019 16:01:33 Mood disorder 06634521 F39 increase the dose of FLUOXETINE due to the concern for the home situation Irritable bowel syndrome 69692852 K58.9 Mitral valve disorder 11 003301 I05.9 rate well controlled , patient reports episodes of palpitatio ns/increas ed sweating every 2-3 months, recommend taking an additional 0.5 tablet of metoprolol during these episodes, also refilling the prescripti on for the next 6 months [id number] Bouchra Gooden MD [facility] [address] [place] [address] 09/21/2019 13:51:19 09/21/2019 20:34:37 Adult health examination 098625368 Z00.01 Acquired hypothyroidism 718103270 E03.9 - levels to be rechecked - at your convenienc e-- lab at [facility]-- employee Screening mammography 24 416763 Z12.31 Administra tion of diphtheria, pertussis, and tetanus vaccine 324933882 Z23 [id number] Bouchra Gooden MD [facility] [address] [place] [address] 11/28/2020 09:45:22 11/28/2020 15:10:27 Adult health examination 433340676 Z00.01 Acquired hypothyroidism 772330410 E03.9 - levels to be rechecked - at your convenienc e-- lab at [facility]-- employee Irritable bowel syndrome 86263823 K58.9 discussed FODMAP Mitral valve disorder 11 914428 I05.9 rate well controlled , patient reports episodes of palpitatio ns/increas ed sweating every 2-3 months, recommend taking an additional 0.5 tablet of metoprolol during these episodes, also refilling the prescripti on for the next 6 months Intolerant of cold 84254 000 R68.89 Low back pain 756725488 M54.5 Cataract 932097973 H26.9 will set up surgery with eye doctor and if greater than 3 months-- may need another visit for clearance [id number] Bouchra Gooden MD [facility] [address] [place] [address] 11/09/2021 09:52:56 11/09/2021 14:49:27 Adult health examination 394402470 Z00.01 vaccine endorsed and declined for COVID Postviral cough 85226764 4 R05.9 chest XRAY and get PFTs with follow up after-- trial rescue inhaler as needed Degenerati on of lumbar intervertebral disc 80682765 M51.36 had had limited chiro care due to cost-- not participat ing in a routine HEP but would like to investigat e pain since daily and does wish to take a daily NSAID due to considerat ion for risk related to that use Mild neuro cognitive disorder 683890510 G31.84 refuses to HIV screening- - I do not know the role of THC in this complaintI do endorse good nutrition and adequate sleep Family his tory of diabetes mellitus in first degree relative 508209945 Z83.3 will check this given mother's history and your personal hx of hypoglycem ia-- lab at [facility]-- employee Cataract of right eye 81 4572644 H26.9 will medically clear if needed in the next 1-2 months based on today's encounter [id number] Bouchra Gooden MD [facility] [address] [place] [address] 03/15/2022 11:42:09 03/15/2022 15:55:50 Mood disorder 11922619 F39 no change in the dose of the fluoxetine at the time-- dose seems effective and tolerable Non-rheuma tic mitral valve disease 084698476 I34.9 routine effective -- routine refill sent Low back pain 987533544 M54.50 seems to be the same-- will await imaging in the coming year Poor short -term memory 069917303 R41.3 seems to be the same-- will await imaging in the coming year Influenza immunization advised 142524565 Z71.85 will consider at work Immunization advised 310 214245 Z71.9 shingrix advised-- no need for discussion per patient [id number] Bouchra Gooden MD [facility] [address] [place] [address] 05/28/2022 10:31:44 05/28/2022 15:35:40 Acute bronchitis 13205751 J20.9 complete the prednisone taper as advised at hospital discharge- - no need for additional antibiotic s Dyspnea 403707725 R06.00 she is advised to cont inhalers with follow up planned for next week with pulmonolog ist Medical ex amination for suspected condition 756761047 Z04.9 will recheck urine as ordered in October 2021-- cognition issues Chronic ob structive pulmonary disease 28597125 J44.9 to get the PFT report s for record-- I advised and patient refused PREVNAR 20 [id number] Bouchra Gooden MD [facility] [address] [place] [address] 01/06/2023 14:15:54 01/07/2023 09:50:45 Difficulty coping with grief responses 816402616 F43.20 I advised patient to take time off of work due to grief and short term disability related to significan t adjustment issues-- time to establish counseling for her grief and time to make financial decisions going forward-- she thinks she will need to sell her home to be self sufficient and reports that her home is too big for just her [id number] Bouchra Gooden MD [facility] [address] [place] [address] 02/03/2023 15:16:26 02/04/2023 10:29:29 Difficulty coping with grief responses 791167582 F43.20 I advised patient to remain off [...] just her Multiple p remature ventricular complexes 351034990 I49.3 cont to avoid caffeine-- get adequate rest and drink plenty of fluids. No change in meds [id number] Bouchra Gooden MD [facility] [address] [place] [address] 03/18/2023 10:52:23 03/19/2023 11:30:03 Non-rheumatic mitral valve disease 454619338 I34.9 routine effective -- routine refill sent Cervical s pondylosis without myelopathy 989972771 M47.[address] chest did show cervical spondylosi s-- she reports neck aching and pain but no radiculopa thy complaint- - she is not interested in PA at this timeMassag e and ROM exercises discussed Adult [facility] th examination 450864024 Z00.01 vaccines endorsed -- FLU shot--decl inedSHINGR IX vaccineShe is encouraged to follow up with Dr Marie routinely for her women's health-- declined here Serum wendy min B12 below reference range 996336807 R79.89 agrees to recheck labs related to low B 12-- she is taking monthly replacemen t ( self administer ed given her medical background ) Bereavement 43786043 Z63 .4 discussed at length with expectatio ns around the holidays discussed. No new interventi on planned at this time. She is participat ing in work with better effectiven ess ( not crying at a drop of a hat)Sunshine mcgarry discussed- - be open and don't be offended when other family may have difficulty in bringing up Pepe's name/remem brances [id number] Bouchra Gooden MD [facility] [address] [place] [address] 03/19/2024 11:18:00 03/22/2024 09:55:24 Adult health examination 785709100 Z00.01 discussed DEXA and declined testing at this timeDiscus sed mammogram and she agrees and will schedule Bilateral arthritis of hands 3389491455 44618 M13.841 M13.842 will check XRAYs asn order screening -- no real help with PREDNISONE - likely not RA Hyperlipidemia 25364622 E78.5 last HDL was good and LDL was minimally elevated-- but will recheck next week Cobalamin deficiency 190 056542 E53.8 she reprots she does not feel any different since starting B 12 injecions- - will check CBC and B 12 Long-term drug therapy 293431885 Z79.891 routine labs next week Anxiety 87606771 F41.9 Take medicines exactly as directed. Call [...] do something you enjoy. Go to a DNage movie, or take a walk or hike. [...] team sports. Administra tion of pneumococcal vaccine 74274321 Z23 update pneumonia vaccine and letter to Dr Campuzano that vaccine was given Working th rough the pain of grief 297937547 F43.21 offered counseling -- advised meditation and socializat ion-- 99 stress reduction activities . Patient declined mental health referral Health Concerns Section Related Observation LastModified by Organization Latricia dacosta LastModified Time None Recorded Concern Status LastModified by Organization Details LastModified Time None Recorded Advance Directives Directive N: Payers Insurance Date Sequence Insurance Name Policy Number Policy Garrison Covered Member ID Garrison Member ID Guarantor Name 03/22/2024 1 [employer] (PPO) [id number] Obi Gama [id number] Obi Gama 11/09/2021 1 [facility] [id number] Obi Gama [id number] Obi Gama Notes Date Note Type Note Provider Name and Address Organization Details Recorded Time 3 text/htm l Upper Respiratory SymptomsReported by PatientUpper Respiratory SymptomsFor quality, patient reportsproductive cough,congested, anddry cough(feels much better since being in hospital, clear phlegm). For associated symptoms, patient reportsshortness of breath,wheezing, andfatiguebut reportsno sweats,no fever,no significant weight gain,no significant weight loss,no sore throat,no vomiting,no diarrhea,no rash, andno nausea. For context, patient reportsno sick contactsandno foreign travel(newly diagnosed with emphysema).diagnosed with COPD at hospital-- had PFTs and to follow up with repairer sash and door next weeknow on symbicort and using rescue inhaler as neededwas treated in [facility] infection with antibiotics and steroids for the COPD-- she has completed all of the antibiotics given but is still on the taper prednisone no flu shot and is not interested in prevnar 20 at this time Bouchra Gooden MD Attn: Accounting,[address] [place], [address], [facility] 05/28/2022 13:53:10 3 text/htm l Generalized Anxiety DisorderReported by PatientHPIFor associated symptoms, patient reportsdifficulty concentrating,difficulty controlling worry,excess anxiety,palpitations,fatigue ,headaches, andsleep disturbancesbut reportsno difficulty swallowing,no excessive sweating,no hot flashes,no shortness of breath,no nausea,no diarrhea,no irritability,no muscle tension,no muscle aches,no trembling,no twitching, andno restlessness. For severity, patient reportsmoderate. For context, patient reportsdepressionandlife stressors(having difficulty concentrating at work/ financial concerns/ crying uncontrollably/ has not removed possessions of her ). For onset/timing, (10/07/22-- which was the of her ).she is grieving the of her spouseROS as noted in the HPI Pt declined Flu due her receiving Flu Vax through her employment Bouchra Gooden MD Attn: Accounting[address] [facility], [place], [address], [facility] 01/06/2023 21:43:11 3 text/htm l Generalized Anxiety DisorderReported by PatientHPIFor severity, patient reportsmoderate(she is off of work and doing well-- no fmla issues or disability issues-- paperwork completed last week). For context, patient reportsdepressionandlife stressors(would like to further discuss with provider on todays visit.). For onset/timing, (10/07/22-- which was the of her ). For associated symptoms, (would rather go over visit with provider).going to bed between 10-11 and wakes up around 6 ---some trouble falling asleep---waking up ot use toilet once a night and falling back asleepappetite is the same-- cooked last 3 nights ago- had pizza with family--and had left overs - no issues with focus some concentration issuesworking with a friend who is a counselor for her mental healthROS as noted in the HPI Bouchra Gooden MD Attn: Accounting[address] [facility], [place], [address], [facility] 02/03/2023 19:42:25 3 text/htm l annual exam - NO PAP Bouchra Gooden MD Attn: Accounting[address] [facility], [place], [address], [facility] 03/19/2023 07:47:06 4 text/htm l since last OV-- 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
--- OUTSIDE RECORDS SUMMARY | 2025-01-12 17:47 | XMS_ITS | Encounter Summary ---
Author Organization [facility] Facility Care Team Providers Care Print Journalist Name Role Phone Bouchra Vickers MD Primary Care Provider [phone] Sultan Elvin Mccartney MD Unavailable [phone] Donte Campuzano MD Unavailable [phone] Encounter Details Date Type Department Care Team (Latest Contact Info) Description 12/06/2015 Orders Only [facility] CLINCONV ProviderBlessing MD [address] [place] [address] Social History Tobacco Use Types Packs/Day Years Used Date Smoking Tobacco: Never Comments Unknown Sex and Gender Information Value Date Recorded Sex Assigned at Not on file 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 04/23/2021 04/27/2021 08/21/2021 3:07 AM C DT COVID: Suspected 05/18/2022 05/18/2022 05/18/2022 9:56 PM DESIGN INSERTER documented as of this encounter Care Teams Print Journalist Relationship Specialty Start Date End Date Bouchra Vickers MD [address] [address] PCP - General 01/18/19 Sultan Elvin Mccartney MD [address] [facility] [address] [address] Consulting Physician Cardiovascular Disease 05/22/22 Donte Campuzano MD [address] [facility] [place] [address] Consulting Physician Pulmonary Disease 05/22/22 documented as of this encounter
--- OUTSIDE RECORDS SUMMARY | 2025-01-12 17:47 | XMS_ITS | Clinical Summary ---
Author Organization [facility] Address [address] [place] [address] Care Team Providers Care Electric Arc Welder Name Role Phone Unavailable Primary Care Provider [...] Vaccine ( - 2023-2 5 season) 2024 Influenza Adult (#1) 2024 RSV Immunization or 60+ Years (1 [...]
== END 2025-01-12 16:30 | disposition home or self-care (01) ==
PROVIDERS: PCP Family Medicine
DX: R91.8 Other nonspecific abnormal finding of lung field (principal); J43.2 Centrilobular emphysema
CPT/HCPCS: 71250

== ENCOUNTER 2025-03-30 06:49 | Outpatient (CLI) | payer OTHER, SELFPAY ==
--- OUTSIDE RECORDS SUMMARY | 2025-03-30 06:53 | XMS_ITS | Encounter Summary ---
Author Organization [facility] Facility Care Team Providers Care Shipping Support Clerk Name Role Phone Bouchra Vickers MD Primary Care Provider [phone] Sultan Elvin Mccartney MD Unavailable [phone] Donte Campuzano MD Unavailable [phone] Encounter Details Date Type Department Care Team (Latest Contact Info) Description 12/06/2015 Orders Only [facility] CLINCONV ProviderBlessing MD [address] [place] [address] Social History Tobacco Use Types Packs/Day Years Used Date Smoking Tobacco: Never Comments Unknown Sex and Gender Information Value Date Recorded Sex Assigned at Not on file Legal Sex Female 10:19 AM PET WALKER Gender Identity Not on file Sexual Orientation [...] COVID: Suspected 03/13/2020 03/13/2020 03/14/2020 5:26 AM PET WALKER COVID19 03/13/2020 03/13/2020 03/27/2020 3:07 AM PET WALKER COVID: Suspected 03/09/2021 03/09/2021 03/10/2021 3:52 AM PET WALKER COVID: Suspected 04/13/2021 04/13/2021 04/13/2021 11:35 PM PET WALKER COVID19 04/13/2021 04/13/2021 04/23/2021 3:05 AM PET WALKER COVID: Recovered Comment:Added based on recent COVID infection. 04/23/2021 04/27/2021 08/21/2021 3:07 AM C DT COVID: Suspected 05/18/2022 05/18/2022 05/18/2022 9:56 PM PET WALKER documented as of this encounter Care Teams Shipping Support Clerk Relationship Specialty Start Date End Date Bouchra Vickers MD [address] [address] PCP - General 01/18/19 Sultan Elvin Mccartney MD [address] [facility] [address] [address] [address] Consulting Physician Cardiovascular Disease 05/22/22 Donte Campuzano MD [address] [facility] [address] [place] [address] Consulting Physician Pulmonary Disease 05/22/22 documented as of this encounter
--- OUTSIDE RECORDS SUMMARY | 2025-03-30 06:53 | XMS_ITS | Continuity of Care Document ---
[facility] Organization [facility] Address [address] [place] [address] Care Team Providers Care Retail Office Manager Name Role Phone BERKLEY BOUCHRA Primary Care Provider MALACHI PEREIRA Carpentry Specialist NICOLETTE HENRY Bank Clerk Assessment No assessment recorded. Plan of Treatment Reminders Order Date Submit Date Provider Last Modified By Organization Details Last Modified Time Details Appointments MEDICARE WELLNESS VISIT 2025 10:30A M Bouchra Vickers MD Not available Not available Not available Lab CMP, serum or plasma 2024 025 [facility] Out[facility]/Ekg, [address], [place], [address], 03/22/2025 09:12:03 CBC w/ auto diff 2024 025 [facility] Outpatient Registration [facility]/Ekg, [address], [place], [address], 03/22/2025 09:12:03 lipid panel, serum 2024 025 [facility] Outpatient Registration [facility], [address], [place], [address], 03/22/2025 09:12:03 Referral None recorded. Procedures None recorded. Surgeries None recorded. Imaging None recorded. Medication Orders nitroglyc gloria 0.4 mg sublingua l tablet 2024 [id number], [address], [place], [id number], 03/21/2025 12:15:07 buspirone 10 mg tablet 2024 [facility] #[id number], [address], [place], [id number], 03/21/2025 12:15:10 metoprolo l succinate ER 50 mg tablet,ex tended release 24 hr 2024 [facility] #[id number], [address], [place], [id number], 03/21/2025 12:15:11 Patient TargetsNo targets recorded. Patient InstructionsNo instructions recorded. Reason for Referral None Reported. Problems Name Problem SNOMED Code Status Onset Date Resolution Date Notes Provider Name and Address Organization Details Recorded Time Spasm of sphincte r of Closteri 18561227 Completed 201112/01/2011 Location : None;Sev erity: Moderate ;Progres s: Stable;A dded By: Bouchra Vickers;Add to Current Problems : NO Not Available [facility] 7 08:54:31 Premenst rual tension syndrome 72035902 Completed 201106/28/2019 Location : None;Sev erity: Moderate ;Progres s: Stable;A dded By: Bouchra Vickers;Add to Current Problems : YES Bouchra Vickers MD Attn: Accounting ,[address] [place], [address] , [facility] - [facility] 0 10:11:54 Irritabl e bowel syndrome 56534042 Active 2011 Location : None;Sev erity: Moderate ;Progres s: Stable;A dded By: Kathy Rust; Add to Current Problems : NO Bouchra Vickers MD Attn: Accounting ,[address] [place], [address] , [facility] 5 08:03:48 Migraine without aura 77572327 Active 2011 Location : None;Sev erity: Moderate ;Progres s: Stable;A dded By: Kathy Rust; Add to Current Problems : NO Not Available [facility] 4 02:00:33 Hypoglyc emia 143594863 Completed 201205/31/2012 Location : None;Sev erity: Moderate ;Progres s: Stable;A dded By: Bouchra Vickers;Add to Current Problems : NO Not Available [facility] 7 08:54:31 Hemangio ma of skin and subcutan eous tissue 742444019 Active 2013 Location : None;Sev erity: Moderate ;Progres s: Stable;A dded By: Bettie Cobos;Add to Current Problems : NO Not Available [facility] 4 02:00:33 Transien t insomnia 060058501 Completed 201311/18/2013 Location : None;Sev erity: Moderate ;Progres s: Stable;A dded By: Ofe Lynn;Add to Current Problems : NO Not Available [facility] 7 08:54:32 Pain of joint of hand 182929791 Completed 201406/28/2019 Location : None;Sev erity: Moderate ;Progres s: Stable;A dded By: Bouchra Vickers;Add to Current Problems : YES Removal Reason: recovere naina Vickers MD Attn: [place], [address] , [facility] [place] [place] 0 10:12:14 Slow transit constipa tion 77990820 Active 2014 Location : None;Sev erity: Moderate ;Progres s: Stable;A dded By: Bouchra Vickers;Add to Current Problems : YES Not Available [facility] 4 02:00:33 Dyssomni a 14440705 Completed 201401/07/2015 Location : None;Sev erity: Moderate ;Progres s: Stable;A dded By: Bouchra Vickers;Add to Current Problems : YES Not Available [facility] 7 08:54:31 Acquired hypothyr oidism 102073425 Active 2015 Location : None;Sev erity: Moderate ;Progres s: Stable;A dded By: Kathy Rust; Add to Current Problems : YES Not Available [facility] 4 02:00:33 Pain of multiple joints 53714981 Active 2015 Location : None;Sev erity: Moderate ;Progres s: Stable;A dded By: Bouchra Vickers;Add to Current Problems : YES Not Available [facility] 4 02:00:33 Non-rheu matic mitral valve disease 791284923 Active 2021 Not Available [facility] 4 02:00:33 Degenera tion of lumbar interver tebral disc 44905167 Active 2021 Not Available [facility] 4 02:00:33 Mild neurocog nitive disorder 359240058 Active 2021 Not Available [facility] 4 02:00:33 Cataract of right eye 937906366 Active 2021 Not Available [facility] 4 02:00:33 Family history of diabetes mellitus in first degree relative 926674951 Active 2021 Not Available [facility] 4 02:00:33 Cobalami n deficien cy 624034695 Active 2021 Not Available [facility] 4 02:00:33 Chronic obstruct marin pulmonar y disease 56937880 Active 2022 Not Available [facility] 4 02:00:33 Chronic cough 45815029 Active 2022 Bouchra Vickers MD Attn: Accounting ,[address] [place], [address] , [facility] 4 12:49:14 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, [place], [address] , [place] - [facility] 4 12:20:09 Multiple nodules of lung 318817987 Active 2023 abnormal -- with a new lesion 2.7 cm x 1,2 cm x 0.7 cm-- recheck in 3 months- most consiste nt with area of atelecta sis Bouchra Vickers MD Attn: Accounting ,[address] [facility], [place], [address] , [facility] 5 08:03:48 Notes:Some problems listed i n Documents: #[id number], #[id number], #[id number] could not be added to this patient's chart. Please review these documents and add these problems to the patient's chart manually as needed. Problem Notes None recorded. Procedures Surgical History Date Name Laterality Status Provider Name and Address Organization Details Recorded Time 07/10/19 24 biopsy of lung completed Bouchra Vickers MD Attn: Accounting, [address] [facility], [place], [address], [place] [facility] 07/22/2023 08:11:42 12/27/19 23 cataract surgery completed Bouchra Vickers MD Attn: Accounting, [address] [place], [address], [place] [facility] 03/18/2023 11:18:43 06/23/19 22 Date of Last Mammogram completed Kenia Carter MA [place] - [facility] 03/19/2024 11:39:12 12/30/19 07 Cholecystectomy completed Bouchra Vickers MD Attn: Accounting, [address] [place], [address], [place] [facility] 03/19/2024 12:35:14 08/30/19 05 Total hysterectomy completed Bouchra Vickers MD Attn: Accounting, [address] [facility], [place], [address], [place] [facility] 03/19/2024 12:35:56 04/01/18 95 Tubal Ligation completed Bouchra Vickers MD Attn: Accounting, [address] [facility], [place], [address], [place] [facility] 03/19/2024 12:36:16 03/31/18 90 Dilation and Curettage completed Bouchra Vickers MD Attn: Accounting, [address] [facility], [place], [address], [place] [facility] 03/19/2024 12:32:10 Gastrointestinal Surgery completed Bouchra Vickers MD Attn: Accounting, [address] [facility], [place], [address], [place] [facility] 11/28/2020 10:40:19 Imaging Results None recorded. Procedure Notes None recorded. Medical Equipment None Reported. Allergies Allergen ID Allergen Name Allergen Category Reaction Reaction Severity Criticality Documentation Date Start Date Code Code System Note Provider Name and Address Organization Details Recorded Time 891963 sumatript an medicatio n anaphylax is Not available Not available 03/19/2024 50080 RxNorm Bouchra Vickers MD Attn: Accountin g,[address] [facility], [place], [address], [place] [facility] 4 12:47:49 753425 zolmitrip araujo medicatio n anaphylax is Not available Not available 03/19/20242021 46210 5 RxNorm Bouchra Vickers MD Attn: Accountin g,[address] [facility], [place], [address], [place] [facility] 4 12:47:49 784414 Adhesive agent (substanc e) environme nt,medica tion rash Not available Not available 03/19/20242021 00585 0007 SNOMED Bouchra Vickers MD Attn: Accountin g,[address] [facility], [place], [address], [place] [facility] 12:47:49 Medications Name Sig Start Date Stop Date Status Note LastModified by Organization Details LastModified Time fluoxetine 40 mg capsule TAKE ONE CAPSULE BY MOUTH EVERY DAY 05/17 completed Not Available Not Available Not Available Miralax 17 gram/dose oral powder Dissolve 1 capful(s) in 8 ounces of water and drink daily 01/06 completed RxNor m: 33741 5;All ow Subst ituti on: True Not [...] TAKE 1 TABLET BY MOUTH EVERY MORNING 03/21 completed Not Available Not Available Not Available estradiol 0.05 mg/24 hr semiweekly transdermal [...] capsules per day. 04/30 completed RxNor m: 02311 7;All ow Subst ituti on: True Not [...] Not Available Not Available No t Available buspirone 10 mg tablet Take 1 tablet 3 times a day by oral route for 30 days. 2024 active Not Available Not Available Not Avai lable misoprostol 200 mcg tablet 3 times daily 11/09 completed Not Available Not Available Not Available metoprolol tartrate 50 mg tablet Take 1 tablet(s) by mouth daily 04/30 completed RxNor m: 18634 6;All ow Subst ituti on: True Not Available Not Available Not Available Imdur 60 mg tablet,exte nded release Take 1 tablet(s) by mouth qam 11/08 completed RxNor m: 49179 8;All ow Subst ituti on: True Not Available Not Available Not Available BD Luer-Lucy Syringe 3 mL 25 gauge x 1 USE DIRECTED active Not Available Not Available No t Available nitroglycer in 0.4 mg sublingual tablet DISSOLVE 1 TABLET UNDER THE TONGUE (MAY REPEAT EVERY 5 MINUTES FOR ABDOMEN SPASMS, MAXIMUM OF THREE DOSES IN 15 MINUTES) 2024 active Not Available Not Available Not Avai lable omeprazole 20 mg capsule,del ayed release TAKE [...] 2 times weekly 05/02 completed RxNor m: 38882 4;All ow Subst ituti on: True Not [...] cap po daily 10/18 completed RxNor m: 73750 1;All ow Subst ituti on: True Not [...] height Body mass index (BMI) Body weight Oxygen saturation Body temperature Heart rate Systolic And Diastolic Provider Name and Address Organization Details Last Updated DateTime 5 160.02 cm 17.6 kg/m2 78566.0 4 g 95 % 98 [degF] 73 /min 112/72 mm[Hg] Yaneth Eid MA [facility] 5 11:41:51 Social History Question Answer Notes LastModified by Organizat ion Details LastModified Time Tobacco Smoking Status Never Smoker [place] [facility] 05/02/2016 11:13:48 Do You Have An Advance [...] Date Of Your Most Recent Tobacco Screening? 03/21/2025 apricema Information not available 03/21/2025 What Is Your Relationship Status? Information not [...] anxious, or unable to sleep at night)? [id number] Information not available 11/28/2020 Family History Relationship [...] Problems Y Kidney or Bladder Problems N Depression N COPD Y Blood Clots N GI Problems Y Have you had a mammogram in the last yea r? N Skin Problems N Eating Disorder N Anemia N Heart Attack (IA) N Diabetes N Muscle, Joint, or Bone Problems Y Seizures/Epilepsy N Have you had a colonoscopy in the last 1 0 years? N Arthritis Y Acid Reflux (GERD) Y Cancer N Stroke N Allergies N Asthma N Have you had a PSA blood [...] PF, 0.5 mL 1 completed Not Available [facility] 05/12/2023 02:00:34 Influenza, split virus, trivalent, preservative 9 completed Not Available [facility] 05/12/2023 02:00:34 Influenza, split virus, trivalent, PF 4 completed Bouchra Vickers MD Attn: Accounting, [address] [place], [address], [facility] [place], [place] 03/19/2024 12:47:12 Pneumococcal conjugate PCV20, polysaccharide [id number] conjugate, adjuvant, PF 4 completed Bouchra Vickers MD Attn: Accounting, [address], [place], [address], [facility] 08/03/2024 08:04:01 Influenza, split virus, trivalent, PF 5 completed Not Available [facility] 03/21/2025 11:25:21 Tdap 0 completed Shadi Garcia MA null, [place] 09/21/2019 14:44:46 Tdap 9 completed Not Available [facility] 05/12/2023 02:00:34 Influenza, split virus, quadrivalent, preservative 7 completed Not Available [facility] 05/12/2023 02:00:33 Past Encounters Encounter ID Performer Location Encounter Start Date Encounter Closed Date Diagnosis/Indication Diagnosis SNOMED-CT Code Diagnosis ICD10 Code Diagnosis IMO Codes Diagnosis Note [id number] Bouchra Vickers MD [facility] [address] [place] [address] 03/21/2025 11:13:39 03/22/2025 10:21:49 Adult health examination 884767621 Z00.01 18004223 Diet should include a good spread of 5- 7 fruits and vegetables per day--try to eat no sugar added to anything.s trive to eat Real food 'get 7-9 hours of sleep Non-rheuma tic mitral valve disease 580342555 I34.9 she is to get testing as ordered by Dr Salinas except she is not going to get the event monitor and will proceed if able to afford-- to get ECHO and CORONARY CALCIUM Long-term current use of drug therapy 595835511 Z79.899 94301327 routine labs next week History of gastrointestinal disease 598429305 Z87.19 7305077 routine refill requested and given for esophageal spasms ( old rx has exprired per patient) Hyperlipidemia 98586124 E78.5 550348 last HDL was good and LDL was minimally elevated-- but will recheck -- risk calculatio n is lower than the risk of med side effects-- no med prescribed -- discussed ASCVD + risk calculator Anxiety 36950635 F41.8 9044580 Take medicines exactly as directed. Call your doctor if you think you are having a problem with your medicine.c onsider daily med ( like an SSRI) if using a great deal of this med with increasing regularity Be kind to your body: Relieve tension [...] problems. Talking to others sometimes relieves stress. encourages again to get at least 30 minutes of exercise on most days of the week to relieve stress. Walking is a good choice. You also may want to do other activities , such as running, swimming, cycling, or playing tennis or team sports. Health Concerns Section Related Observation LastModified by Organization Detai ls LastModified Time None Recorded Concern Status LastModified by Organization Details LastModified Time None Recorded Payers Encounter Date Sequence Insurance Name Policy Number Policy Garrison Covered Member ID Garrison Member ID Guarantor Name 03/21/2025 1 [employer] (PPO) [id number] Obi Gama [id number] Obi Gama Notes Date Note Type Note Provider Name and Address Organization Details Recorded Time 03/21/2025 text/html here for an annual check up Bouchra Vickers MD Attn: Accounting,[address] [place], [address], [place] [facility] 03/21/2025 13:13:01 OBGyn Episode No OBEpisode recorded.
--- OUTSIDE RECORDS SUMMARY | 2025-03-30 06:54 | XMS_ITS | Clinical Summary ---
Author Organization [facility] at the [facility] Office Center Address [address] [place] [address] Care Team Providers Care Crab Fisherman Name Role Phone Bouchra Vickers MD Primary Care Provider [phone] Donte Campuzano MD Unavailable [phone] Allergies Active Allergy Reactions Criticality Noted Date Comments Adhesive Rash Medium 04/06/2021 red rash, burning Sumatriptan Anaphylaxis High Zolmitriptan Anaphylaxis High 04/06/2021 Throat Swelling, Medications metoprolol XL (TOPROL-XL) 50 mg extended release tablet Take 1 tablet (50 mg total) by mouth daily Active FLUoxetine (PROzac) 60 mg tablet Take 1 tablet (60 mg total) by mouth early interventionist 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 Active nitroglycerin (NITROSTAT) 0.4 mg [...] Information Patient not taking.Reason: Other, Reported on 03/28/2025 predniSONE (DELTASONE) 5 mg tablet Take 3 tabs qam 90 tablet 2 10/22/19 Active Additional Information Patient not taking.Reason: Other, Reported on 03/28/2025 omeprazole (PriLOSEC) 20 mg capsuleIndicati ons:Gastroesoph ageal reflux disease without esophagitis TAKE 2 CAPSULES(40 MG) BY MOUTH DAILY 30 capsule 04/01/19 25 Active Breztri Aerosphere 160-9-4.8 mcg/actuation inhaler INHALE 2 PUFFS BY MOUTH TWICE DAILY 10.7 g 4 11/20/19 25 Active Bifidobacterium longum (ALIGN, B.LONGUM, ORAL) Take by mouth Active estradioL (ESTRACE) 0.5 mg tabletIndicatio ns:Menopausal symptoms TAKE 1 TABLET(0.5 MG) BY MOUTH DAILY 30 tablet 3 02/03/20 Active busPIRone (BUSPAR) 10 mg tablet Take 1 tablet 3 times a day by oral route for 30 days. 03/21/20 Active Active Problems Problem Noted Date Diagnosed Date Pulmonary nodules 07/17/2023 Assessment & Plan (06/04/2024 7:55 AM INVASIVE PHYSICIAN): The patient had 1 of the right [...] Martinez. Assessment & Plan (02/20/2024 9:44 AM INVASIVE PHYSICIAN): The patient did have the largest right [...] appointment. The CT will be performed at [facility]. 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 I will repeat another chest CT in 2 weeks and she will follow up here in 4 weeks. Centrilobular emphysema 05/30/2023 Assessment & Plan (05/28/2024 9:48 AM INVASIVE PHYSICIAN): The patient had a recent influenza infection but is recovering. She continues on Breztri 2 puffs b.i.d. and has an albuterol rescue inhaler use p.r.n.. Assessment & Plan (02/20/2024 9:43 AM INVASIVE PHYSICIAN): The patient never smoked and does have [...] secretions. Assessment & Plan (05/30/2023 10:16 AM INVASIVE PHYSICIAN): She states that she is requiring her albuterol inhaler more often. She will continue with breztri 2 puffs b.i.d. and I will check full PFTs at [facility] and start Mucinex 600 mg p.o. [...] 06/12/2022 Assessment & Plan (05/28/2024 9:49 AM INVASIVE PHYSICIAN): Her reflux is being controlled with omeprazole 40 mg daily. Assessment & Plan (02/20/2024 9:44 AM INVASIVE PHYSICIAN): She has been having increased reflux symptoms [...] Prilosec Assessment & Plan (05/30/2023 10:16 AM INVASIVE PHYSICIAN): She continues on a proton pump inhibitor [...] week. Assessment & Plan (05/30/2023 10:15 AM INVASIVE PHYSICIAN): The original 6 mm right lower lobe [...] November 2023. She does complete these at [facility]. I have given the patient an order to have the CT scan completed. The patient is also going to picker and sorter load and unload the disc from the CT scan at [facility] in May for [facility] to compare. Assessment & Plan (07/26/2022 10:05 AM CDT): I have ordered a CT scan of the chest for October of 2022. Assessment & Plan (06/12/2022 3:55 PM CDT): I have ordered a CT scan of the chest for October of 2022. Encounters Date Type Department Care Team Description 03/28/2025 9:30 AM INVASIVE PHYSICIAN Office Visit [facility] Pulmonology [address] [place] [phone] Emeli Martinez MD Chronic obstructive pulmonary disease, unspecified COPD type (HCC) (Primary Dx); Lung nodule; Sarcoidosis 03/08/2025 11:15 AM INVASIVE PHYSICIAN Ancillary Procedure [facility] Cardiology [address] [place] [phone] Shortness of breath; PVC (premature ventricular contraction) 03/08/2025 10:00 AM INVASIVE PHYSICIAN Office Visit [facility] Cardiology [address] [place] [phone] Hector Salinas MD Shortness of breath (Primary Dx); PVC (premature ventricular contraction); Dyspnea, unspecified type 01/25/2025 9:00 AM CDT Office Visit [facility] Pulmonology [address] [place] [phone] Emeli Martinez MD Shortness of breath (Primary Dx); Nodule of right lung; Pulmonary sarcoidosis; Chronic obstructive pulmonary disease, unspecified COPD type (HCC) 01/20/2025 Orders Only [facility] Pulmonology [address] [place] [phone] Blessing Morris MD 01/12/2025 4:55 PM CDT - 01/12/2025 11:59 PM CDT Hospital Encounter [facility] [employer] [address] [place] [id number] Discharge Disposition: Discharge to home or self [...] on file Legal Sex Female 10:19 AM INVASIVE PHYSICIAN Gender Identity Not on file Sexual Orientation [...] Sign Reading Time Taken Comments Blood Pressure 118/68 03/28/2025 9:11 AM INVASIVE PHYSICIAN Pulse 54 03/28/2025 9:11 AM INVASIVE PHYSICIAN Temperature 36.4 C (97.6 F) 03/28/2025 9:11 AM INVASIVE PHYSICIAN Respiratory Rate 16 03/28/2025 9:11 AM INVASIVE PHYSICIAN Oxygen Saturation 99% 03/28/2025 9:11 AM INVASIVE PHYSICIAN Inhaled Oxygen Concentration - - Weight 44.9 kg (99 lb) 03/28/2025 9:11 AM INVASIVE PHYSICIAN Height 157.5 cm (5' 2) 03/28/2025 9:11 AM INVASIVE PHYSICIAN Body Mass Index 18.11 03/28/2025 9:11 AM INVASIVE PHYSICIAN Plan of Treatment Health Maintenance Due Date Last Done Comments Colon Cancer Screening-Colonoscopy 1965 Depression Screening 1965 Hepatitis C Screening 1965 Hepatitis B Screening 07/02/1981 Zoster Vaccine (1 of 2) 07/02/2013 Breast Cancer Screening-Mammogram 06/21/2022 022, 09/22/2015 Covid-19 Vaccine (2 - 2024-2 6 season) 2024 10/24/2020 Regular Well Visit/Exam 18-64 09/03/2025, 06/17/2023, 05/18/2021 DTaP/Tdap/Td Vaccine (3 - Td or Tdap) 09/20/2029 09/21/2019, 01/03/2009 Cervical Cancer Screening Discontinued 05/18/2021, 09/2015 Pneumococcal vaccine <65 Completed 03/19/2024 Influenza Vaccine Completed 01/03/2025, , 12/30/2016, Additional history exists Procedures Procedure Name Priority Date/Time Associated Diagnosis Comments ECG 12-LEAD Routine 03/08/2025 10:41 AM INVASIVE PHYSICIAN Shortness of breath CT BODY OUTSIDE REFERENCE Routine 01/12/2025 4:55 PM CDT SCREENING MAMMOGRAM BILATERAL W RICHI Schedule Routine, Read Routine (OP Routine) 06/21/2021 3:05 PM CDT Encounter for screening mammogram for malignant neoplasm of breast PAP AND HIGH RISK HPV, REFLEX TO GENOTYPING Routine 05/18/2021 10:53 AM INVASIVE PHYSICIAN Well woman exam from Last 3 Months or Most Recently Relevant to Health Maintenance Results * ECG 12 lead (03/08/2025 10:41 AM INVASIVE PHYSICIAN) us Hector Salinas MD ECG ORDERABLES Final Res ult * CT Body Outside Reference (01/12/2025 4:55 PM CDT) Narrative [id number] - 01/20/2025 12:05 PM CDT This order has been auto-finalized and does not contain a result. us Provider Transcribed Order IMG CT PROCEDURES Fin al Result [id number] * Screening Mammogram Bilateral W Richi [...] age 40, based on guidelines of the [employer] (ACR Practice Parameter for the Performance of Screening and Diagnostic Mammography) and [employer]. For women [...] HPV, reflex to Genotyping (05/18/2021 10:53 AM INVASIVE PHYSICIAN) Thin prep (Pap test) 05/18/2021 10:53 AM INVASIVE PHYSICIAN 05/21/2021 10:53 AM INVASIVE PHYSICIAN Narrative PATHOLOGY [facility] - 05/24/2021 11:29 AM INVASIVE PHYSICIAN [facility] Department of Pathology [address] [place], [place] [id number] Final Report with Addendum Note to Patients: [...] the details. Patient Name: OBI GAMA Address: [address] [place] [address] Gender: F : 1965 (Age: 55) Service: Laboratory Location: [facility] #: [id number] Patient Type: [facility] SPECIMEN Taken: 05/18/2021 Received: 05/21/2021 Accessioned:: 05/22/2021 Reported: 05/24/2021 Physician(s): Praveen Marie M.D. [facility] Diagnosis: Source of Specimen: SCREENING THIN PREP [...] determined by the Surgical Pathology Department at [facility] as part of an ongoing vendor quality supervisor program and in compliance with [...] characteristics determined by the Surgical Pathology Department [facility]. It has not been cleared or approved by the [place]. [place]. Food and Drug Administration. Praveen Marie MD LAB CYTOLOGY ORDERABLES Final Result PATHOLOGY [facility] from Last 3 Months or Most Recently Relevant to Health Maintenance Insurance [facility] Advance Directives For more information, please contact: [phone] * Full Code (Latest Code Status on File) Date Activated Date Inactivated Comments 07/10/2023 10:13 AM 07/11/2023 5:04 AM * Full Code Date Activated Date Inactivated Comments 05/19/2022 4:50 AM 05/22/2022 5:19 PM Care Teams Crab Fisherman Relationship Specialty Start Date End Date Bouchra Vickers MD [address] [address] PCP - General 01/18/19 Donte Campuzano MD [address] [facility] [address] [address] Consulting Physician Pulmonary Disease 05/22/22
--- OUTSIDE RECORDS SUMMARY | 2025-03-30 06:54 | XMS_ITS | Clinical Summary ---
Author Organization [facility] Address [address] [place] [id number] Care Team Providers Care Public Health Professor Name Role Phone Unavailable Primary Care Provider [...] of 2) 07/02/2013 COVID-19 Vaccine ( - 2024-2 6 season) 2024 Influenza Adult (#1) 2024 RSV Immunization or 60+ Years (1 - 1-dose 75+ series) 07/02/2038 Hepatitis A Vaccines Aged Out No long er eligible based on patient's age to complete this topic Meningococcal B Vaccine Aged Out No l onger eligible based on patient's age to complete this topic Meningococcal Vaccine Aged Out No mathieu cassidy eligible based on patient's age to complete this topic RSV Immunizations Under 20 Months Aged Out No longer eligible based on patient's age to complete this topic
[2025-03-30 07:05] LABS: Hematocrit 41.9 % (37.0-47.0); Hemoglobin 13.8 g/dL (12.0-15.0); Immature Granulocyte Percent A 0.4 % (0-0.5); Lymphocytes Absolute Auto 1.21 K/mm3 (0.9-3.2); Mean Corpuscular HGB Conc 32.9 g/dl (32-36); Mean Corpuscular Hemoglobin 30.2 pg (26-34); Mean Corpuscular Volume 91.7 fl (80-100); Nucleated Red Blood Cells Absolute Auto 0.000 K/mm3 (0.0-0.012); Nucleated Red Blood Cells Perc 0.0 % (0.0-0.2); Platelet Count Result 199 k/mm3 (150-375); Red Blood Count 4.57 M/mm3 (4.2-5.4); White Blood Count 5.1 K/mm3 (4.5-10.0)
[2025-03-30 07:26] LABS: Alanine Aminotransferase 16 U/L (6-35); Albumin Level 4.5 g/dL (3.5-5.1); Alkaline Phosphatase 48 U/L (38-126); Anion Gap 7 mmol/L (4-12); Aspartate Amino Transferase 25 U/L (14-36); Bilirubin,Total 0.8 mg/dL (0.2-1.3); Blood Urea Nitrogen 11 mg/dL (7-17); Calcium 9.3 mg/dL (8.4-10.2); Carbon Dioxide 29 mmol/L (22-30); Chloride 104 mmol/L (98-107); Cholesterol 255 mg/dL (0-200); Estimated Glomerular Filt Rate > 60; Glucose 96 mg/dL (65-110); HDL Direct 78 mg/dL; Potassium 4.0 mmol/L (3.4-5.0); Sodium 140 mmol/L (137-145); Total Protein 7.5 g/dL (6.3-8.2); Triglycerides 107 mg/dL (<150)
== END 2025-03-30 06:50 | disposition home or self-care (01) ==
LOC: ANHLAB 06:51
PROVIDERS: PCP Family Medicine; Visit Provider Family Medicine
DX: E78.5 Hyperlipidemia, unspecified (principal); Z79.899 Other long term (current) drug therapy
CPT/HCPCS: 36415; 80053; 80061; 82306; 85025